=== PATIENT | male | born 1960 | race Caucasian/White ===

== ENCOUNTER 2023-01-06 22:36 | Emergency (ER) | payer OTHER, MEDICARE, SELFPAY ==
[2023-01-06 22:39] VITALS: BP 169/92; PULSE 75; RESP 18; TEMP 36.6; O2SAT 100; BMI 35.7
--- NOTE | 2023-01-06 22:53 | CT_ITS ---
[address] [address] Patient Name: ALMA HARRY MRN: [id number] date: 1960 Sex: M Assigned Patient Location: ER Current Patient Location: ER Accession/Order Number: [id number] Exam Date: 01/06/2023 23:28 Report Date: 01/07/2023 00:08 At the request of: ANU ZAMORA Procedure: CT abdomen pelvis w con EXAM: CT abdomen pelvis w con HISTORY: upper abdomianl pain, obstipation COMPARISON: 04/23/2021 TECHNIQUE: CT examination of the abdomen and pelvis performed using standard technique using 100 mL FINDINGS: Slightly dense liver suggestive of fatty infiltration. Numerous gallstones are seen without overt stigmata of cholecystitis. Mild vascular consultation. Unremarkable adrenal glands. Small parapelvic cysts. 5 mm left lower pole stone. 1 mm right mid pole stone Diverticulosis. No overt stigmata of diverticulitis. No hydronephrosis. Moderate retained stool in the colon. Normal appendix. No diverticulitis. Prostate gland and urinary bladder otherwise unremarkable No suspicious osseous lesions. Possible mitral valve calcification CT/CT abdomen pelvis w con IMPRESSION: Diverticulosis. No diverticulitis. Nonobstructing nephroliths. Gallstones. Slight fatty infiltration of the liver. Electronically authenticated by: SHAVONNE SAUCEDO Date: 01/07/2023 00:08
--- NOTE | 2023-01-06 22:54 | ED.GENADUL1 ---
HPI - General Adult General Chief complaint: Abdominal Pain Stated complaint: DIARRHEA, ABDOMINAL PAIN Time Seen by Provider: 01/06/23 22:37 Source: patient Mode of arrival: walk-in History of Present Illness HPI narrative: patient complains of upper abdominal pain and inability to pass formed stool for the last 36 hours. he said that he normally has a BM each morning. He did not have one this morning. Later he passed some watery stool and he has been passing flatus. He at [employer] and [place] [employer] at [employer]. His pain worsened so he took both a laxative suppository and gave himself an enema - no results. He complains of pain to the upper abdomen, no radiation and no sensation that he needs to pass stool PSHx includes hernia repair. PMHx - negative for UC, Crohn's, IBS, diverticulitis, GERD. Still has GB and appendix Related Data Previous Rx's Medication Instructions Recorded hyoscyamine sulfate 0.125 mg 0.125 mg PO Q6H PRN abdominal pain 01/07/23 sublingual tablet (Levsin/SL) #20 tabs ondansetron 4 mg disintegrating 4 mg PO Q6H PRN nausea and 01/07/23 tablet vomiting #20 tabs peg 3350-electrolytes 236 200 ml PO .q20min #2,000 mL 01/07/23 gram-22.74 gram-6.74 gram-5.86 gram solution (Golytely) Allergies Allergy/AdvReac Type Severity Reaction Status Date / Time No Known Drug Allergies Allergy Verified 01/06/23 22:43 Exam Narrative Exam Narrative: Nurses notes and vital signs reviewed and patient is not hypoxic. afebrile General: Well-appearing and in no apparent distress. Skin: Warm, dry, no pallor noted. No rash. Head: Normocephalic, atraumatic. Eye: Pupils are equal, round and EOMI. No scleral icterus. Ears, Nose, Mouth, and Throat: Oral mucosa is moist Cardiovascular: Regular Rate and Rhythm without murmur, gallop or rub. Respiratory: No accessory muscle use or respiratory distress. Lungs are clear to auscultation, no wheezing, rales or rhonchi Back: No CVA tenderness Musculoskeletal: normal ROM GI: Abdomen is soft, non-distended. He is obese. Normal bowel sounds. No masses appreciated. Diffuse upper abdominal tenderness to palpation. No rebound, guarding, or rigidity noted. Neurological: A&O x4. No cranial nerve dysfunction observed. No truncal ataxia. Moves all extremities. Sensation intact. Psychiatric: Cooperative and interactive. Normal mood and affect. Constitutional Vital Signs, click to edit/add: Last Vital Signs Temp 97.8 F 01/06/23 22:39 Pulse 71 01/06/23 23:58 Resp 18 01/06/23 22:39 BP 141/78 01/06/23 23:58 Pulse Ox 98 01/06/23 23:58 O2 Del Method Room Air 01/06/23 23:58 Course Vital Signs Vital signs: Vital Signs Temperature 97.8 F 01/06/23 22:39 Pulse Rate 75 01/06/23 22:39 Respiratory Rate 18 01/06/23 22:39 Blood Pressure 169/92 H 01/06/23 22:39 Pulse Oximetry 100 01/06/23 22:39 Oxygen Delivery Method Room Air 01/06/23 22:39 Temperature 97.8 F 01/06/23 22:39 Pulse Rate 71 01/06/23 23:58 Respiratory Rate 18 01/06/23 22:39 Blood Pressure 141/78 01/06/23 23:58 Pulse Oximetry 98 01/06/23 23:58 Oxygen Delivery Method Room Air 01/06/23 23:58 Medical Decision Making MDM Narrative Medical decision making narrative: peripheral IV established and blood drawn and sent for testing. The patient ordered to receive normal saline IV fluid, IV Zofran and IV Dilaudid for his pain. He was ordered to undergo CT scanning of the abdomen pelvis with IV contrast. Minimally elevated WBC at 11.1k. Bili total elevated at 1.1 - direct bili was . CMP notable only for elevated BUN at 23. Lipase negative, normal LFTs. CT abd/pelvis with IVC revealed diverticulosis without diverticulitis, gallstones and moderate retained colonic stool, per radiologist. Patient received a second dose of Dilaudid while awaiting CT results. he was also given SL Levsin. Patient informed of results and feels good enough to go home. Discussed diagnoses and plan for treatment including clear liquid diet x24 hours, GoLytely solution, Levsin for pain, ZOfran for nausea. ED return if he worsens. Lab Data Lab results reviewed: Yes I reviewed the patient's lab results Labs: Lab Results 01/06/23 Range/Units 22:45 WBC 11.1 H (4.0-11.0) 10^3/uL RBC 4.34 L (4.70-6.10) 10^6/uL Hgb 12.9 L (14.0-18.0) g/dL Hct 38.3 L (42.0-54.0) % MCV 88.2 (80.0-94.0) fL MCH 29.7 (25.9-34.0) pg MCHC 33.7 (29.9-35.2) g/dL RDW 13.2 (11.0-15.0) % Plt Count 257 (150-450) 10^3/uL MPV 10.2 (9.5-13.5) fL Neut % (Auto) 71.9 (43.0-75.0) % Lymph % (Auto) 17.1 L (20.5-60.0) % [place] % (Auto) 6.0 (1.7-12.0) % Eos % (Auto) 4.2 (0.9-7.0) % Baso % (Auto) 0.5 (0.2-2.0) % Neut # (Auto) 8.0 H (1.4-6.5) 10^3/uL Lymph # (Auto) 1.9 (1.2-3.8) 10^3/uL [place] # (Auto) 0.7 (0.3-0.8) 10^3/uL Eos # (Auto) 0.5 (0.0-0.7) 10^3/uL Baso # (Auto) 0.1 (0.0-0.1) 10^3/uL Abs Immat Gran (auto) 0.03 (0.00-0.03) 10^3/uL Imm/Tot Granulo (auto) 0.3 (0.0-0.5) % Sodium 136 (136-145) mmol/L Potassium 3.7 (3.5-5.1) mmol/L Chloride 103 (98-107) mmol/L Carbon Dioxide 25.0 (21.0-32.0) mmol/L Anion Gap 11.7 BUN 23.0 H (7.0-18.0) mg/dL Creatinine 1.00 (0.70-1.30) mg/dL Est GFR ( Amer) >60 (>=60) Est GFR (Non-Af Amer) >60 (>=60) BUN/Creatinine Ratio 23.0 Glucose 104 (74-106) mg/dL Lactate 0.7 (0.4-2.0) mmol/L Calcium 9.0 (8.5-10.1) mg/dL Total Bilirubin 1.1 H (0.2-1.0) mg/dL AST 18 (15-37) U/L ALT 29 (16-63) U/L Alkaline Phosphatase 91 (46-116) U/L Total Protein 7.5 (6.4-8.2) g/dL Albumin 3.9 (3.4-5.0) g/dL Globulin 3.6 g/dL Albumin/Globulin Ratio 1.1 Lipase 90.0 (73.0-393.0) U/L Imaging Data CT scan - abdomen: Radiologist's impression: Patient Name: ALMA HARRY MRN: [id number] date: 1960 Sex: M Assigned Patient Location: ER Current Patient Location: ER Accession/Order Number: [id number] Exam Date: 01/06/2023 23:28 Report Date: 01/07/2023 00:08 At the request of: ANU ZAMORA Procedure: CT abdomen pelvis w con EXAM: CT abdomen pelvis w con HISTORY: upper abdomianl pain, obstipation COMPARISON: 04/23/2021 TECHNIQUE: CT examination of the abdomen and pelvis performed using standard technique using 100 mL FINDINGS: Slightly dense liver suggestive of fatty infiltration. Numerous gallstones are seen without overt stigmata of cholecystitis. Mild vascular consultation. Unremarkable adrenal glands. Small parapelvic cysts. 5 mm left lower pole stone. 1 mm right mid pole stone Diverticulosis. No overt stigmata of diverticulitis. No hydronephrosis. Moderate retained stool in the colon. Normal appendix. No diverticulitis. Prostate gland and urinary bladder otherwise unremarkable No suspicious osseous lesions. Possible mitral valve calcification IMPRESSION: Diverticulosis. No diverticulitis. Nonobstructing nephroliths. Gallstones. Slight fatty infiltration of the liver. Electronically authenticated by: SHAVONNE SAUCEDO Date: 01/07/2023 00:08 Discharge Plan Discharge Chief Complaint: Abdominal Pain Clinical Impression: Gallstones, Abdominal pain, Constipation Patient Disposition: Home, Self-Care Time of Disposition Decision: 00:23 Prescriptions / Home Meds: New peg 3350-electrolytes [Golytely] 236-22.74-6.74 -5.86 gram recon soln 200 ml PO .q20min Qty: 2000 0RF Rx Instructions: until fecal effluent is clear hyoscyamine sulfate [Levsin/SL] 0.125 mg tablet, sublingual 0.125 mg PO Q6H PRN (Reason: abdominal pain) Qty: 20 0RF ondansetron 4 mg tablet,disintegrating 4 mg PO Q6H PRN (Reason: nausea and vomiting) Qty: 20 0RF Instructions: Constipation (ED), Gallstones (ED), Abdominal Pain (ED) Stand Alone Forms: Portal Instructions Referrals: KRYSTIN CAIN [Primary Care Provider] - 1 week
[2023-01-06 22:58] LABS: Basophils Absolute Auto 0.1 10^3/uL (0.0-0.1); Basophils Percent Auto 0.5 % (0.2-2.0); Eosinophils Absolute Auto 0.5 10^3/uL (0.0-0.7); Eosinophils Percent Auto 4.2 % (0.9-7.0); Hematocrit 38.3 % (42.0-54.0); Hemoglobin 12.9 g/dL (14.0-18.0); Immature Granulocytes Abs Auto 0.03 10^3/uL (0.00-0.03); Immature Granulocytes Pct Auto 0.3 % (0.0-0.5); Lymphocytes Absolute Auto 1.9 10^3/uL (1.2-3.8); Lymphocytes Percent Auto 17.1 % (20.5-60.0); Mean Corpuscular HGB Conc 33.7 g/dL (29.9-35.2); Mean Corpuscular Hemoglobin 29.7 pg (25.9-34.0); Mean Corpuscular Volume 88.2 fL (80.0-94.0); Mean Platelet Volume 10.2 fL (9.5-13.5); Monocytes Absolute Auto 0.7 10^3/uL (0.3-0.8); Neutrophils Percent Auto 71.9 % (43.0-75.0); Platelet Count 257 10^3/uL (150-450); Red Blood Count 4.34 10^6/uL (4.70-6.10); Red Cell Distribution Width 13.2 % (11.0-15.0); White Blood Count 11.1 10^3/uL (4.0-11.0)
[2023-01-06] MEDS: ONDANSETRON PF 4 MG/2 ML VIAL IV (23:07)
[2023-01-06] MEDS: 0.9 % SODIUM CHLORIDE 1,000 ML 999 ML IV (23:07)
[2023-01-06] MEDS: PANTOPRAZOLE SODIUM 40 MG VIAL IV (23:07)
[2023-01-06] MEDS: HYDROMORPHONE HCL 1 MG/ML CARTRIDGE IVP (23:07)
[2023-01-06 23:11] LABS: Alanine Aminotransferase 29 U/L (16-63); Albumin Globulin Ratio 1.1; Albumin Level 3.9 g/dL (3.4-5.0); Alkaline Phosphatase 91 U/L (46-116); Anion Gap 11.7; Aspartate Amino Transferase 18 U/L (15-37); Bilirubin Total 1.1 mg/dL (0.2-1.0); Chloride 103 mmol/L (98-107); Estimated GFR (African America >60 (>=60); Estimated GFR (Non-African Ame >60 (>=60); Globulin 3.6 g/dL; Glucose 104 mg/dL (74-106); Potassium 3.7 mmol/L (3.5-5.1); Sodium 136 mmol/L (136-145); Total Protein 7.5 g/dL (6.4-8.2)
[2023-01-06 23:29] LABS: Lactate/Lactic Acid 0.7 mmol/L (0.4-2.0)
[2023-01-06 23:58] VITALS: BP 141/78; PULSE 71; O2SAT 98
[2023-01-07] MEDS: HYOSCYAMINE SULFATE 0.125 MG TAB.SUBL SL (00:02)
[2023-01-07] MEDS: HYDROMORPHONE HCL 0.5 MG/0.5 ML SYRINGE 1 MG IV (00:03)
[2023-01-07 00:56] LABS: Bilirubin Direct 0.2 mg/dL (0.0-0.2)
== END 2023-01-07 00:37 | disposition home or self-care (01) ==
PROVIDERS: Emergency Provider Emergency Medicine; PCP Family Medicine
DX: R10.9 Unspecified abdominal pain (principal); K59.00 Constipation, unspecified; K80.20 Calculus of gallbladder without cholecystitis without obstruction; E66.9 Obesity, unspecified; Z68.35 Body mass index [BMI] 35.0-35.9, adult; K57.90 Diverticulosis of intestine, part unspecified, without perforation or abscess without bleeding; Z79.899 Other long term (current) drug therapy
CPT/HCPCS: 36415; 74177; 80053; 82248; 83605; 83690; 85025; 96374; 96375; 96376; 99285; J1170; Q9967

== ENCOUNTER 2023-01-08 22:48 | Inpatient (IN) | payer OTHER, MEDICARE, SELFPAY ==
[2023-01-08] VITALS (10 sets, daily range): BP systolic 109–136; BP diastolic 67–80; PULSE 76–105; RESP 15–25; TEMP 36.8; O2SAT 96–99; BMI 35.7
--- NOTE | 2023-01-08 23:00 | ECG_ITS ---
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
--- NOTE | 2023-01-08 23:00 | XR_ITS ---
The [address] [address] Patient Name: ALMA HARRY MRN: [id number] date: 1960 Sex: M Assigned Patient Location: ER Current Patient Location: ER Accession/Order Number: [id number] Exam Date: 01/08/2023 23:08 Report Date: 01/08/2023 23:33 At the request of: ED COLMENARES Procedure: XR chest 1V EXAMINATION: XR chest 1V HISTORY: Chest pain COMPARISON: Chest x-rays 06/30/2015 TECHNIQUE: Portable chest FINDINGS: Cardiac pacer paddle is present. The lung parenchyma is free of consolidation or infiltrate. No pneumothorax or pleural effusion. The cardiac, mediastinal and hilar contours are normal. The visualized osseous structures exhibit no gross abnormality. XR/XR chest 1V IMPRESSION: No acute cardiopulmonary abnormality. Electronically authenticated by: RYLAN VELAZCO Date: 01/08/2023 23:33
--- NOTE | 2023-01-08 23:01 | ED_ITS ---
HPI - Chest Pain General Chief Complaint: Chest Pain Stated Complaint: CHEST PAIN Time Seen by Provider: 01/08/23 22:54 Source: patient Mode of arrival: Wheelchair History of Present Illness HPI narrative: 62-year-old male presents for abdominal pain and chest pain. He was here two days ago for abdominal pain across his upper abdomen and CAT scan apparently showed constipation. He was given GoLYTELY which he took and he had multiple liq uid bowel movements. He was on his way here because of the same abdominal pain and he had some lower chest pain that started on the way here. Immediately after getting his IV started here he passed out. His states he has been sweaty tonight. he reports his abdominal pain is severe. Related Data Home Medications Medication Instructions Recorded Confirmed albuterol sulfate 90 mcg/actuation inhalation 01/09/23 aerosol inhaler (ProAir HFA) atorvastatin 80 mg tablet 80 mg PO DAILY 01/09/23 01/09/23 budesonide-formoterol HFA 160 2 inh inhalation BID 01/09/23 01/09/23 mcg-4.5 mcg/actuation aerosol inhaler (Symbicort) cholecalciferol (vitamin D3) 125 5,000 unit PO DAILY 01/09/23 01/09/23 mcg (5,000 unit) tablet (Vitamin D3) clopidogrel 75 mg tablet 75 mg PO DAILY 01/09/23 01/09/23 losartan 50 mg tablet 50 mg PO DAILY 01/09/23 01/09/23 metoprolol succinate 50 mg 50 mg PO DAILY 01/09/23 01/09/23 tablet,extended release 24 hr nitroglycerin 0.4 mg sublingual mg 01/09/23 tablet revefenacin 175 mcg/3 mL solution 175 mcg inhalation DAILY 01/09/23 01/09/23 for nebulization (Yupelri) spironolactone 50 mg tablet 50 mg PO DAILY 01/09/23 01/09/23 Previous Rx's Medication Instructions Recorded hyoscyamine sulfate 0.125 mg 0.125 mg PO Q6H PRN abdominal pain 01/07/23 sublingual tablet (Levsin/SL) #20 tabs ondansetron 4 mg disintegrating 4 mg PO Q6H PRN nausea and 01/07/23 tablet vomiting #20 tabs peg 3350-electrolytes 236 200 ml PO .q20min #2,000 mL 01/07/23 gram-22.74 gram-6.74 gram-5.86 gram solution (Golytely) Allergies Allergy/AdvReac Type Severity Reaction Status Date / Time No Known Drug Allergies Allergy Verified 01/06/23 22:43 Review of Systems ROS Narrative A ten point review of systems is negative except as noted above. Cardiovascular Reports: chest pain Gastrointestinal Reports: abdominal pain and nausea Exam Narrative Exam Narrative: Nurses note and vital signs reviewed and patient is not hypoxic. General: The patient appears uncomfortable and minimally anxious. Skin: Warm, dry, no pallor noted. There is no rash noted. Head: Normocephalic, atraumatic Eye: Normal conjunctiva, no drainage Ears, Nose, Mouth, and Throat: oral mucosa is moist. Nares patent. Cardiovascular: Regular Rate and Rhythm Respiratory: Patient is in no distress, no accessory muscle use, lungs are clear to auscultation, no wheezing, rales or rhonchi Back: non-tender GI: Normal bowel sounds, he does not seem to have any tenderness on palpation of the upper abdomen or lower abdomen. Musculoskeletal: The patient has no evidence of calf tenderness, no pitting edema, symmetrical pulses noted bilaterally Neurological: A&O, normal speech Psychiatric: Cooperative, mildly anxious Constitutional Vital Signs, click to edit/add: Last Vital Signs Temp 98.3 F 01/08/23 22:52 Pulse 77 01/09/23 02:30 Resp 12 01/09/23 01:30 BP 130/80 01/09/23 02:30 Pulse Ox 96 01/09/23 02:34 O2 Del Method Nasal Cannula 01/09/23 02:34 Course Vital Signs Vital signs: Vital Signs Temperature 98.3 F 01/08/23 22:52 Pulse Rate 96 H 01/08/23 22:52 Respiratory Rate 18 01/08/23 22:52 Blood Pressure 136/78 01/08/23 22:52 Pulse Oximetry 98 01/08/23 22:52 Oxygen Delivery Method Room Air 01/08/23 22:52 Temperature 98.3 F 01/08/23 22:52 Pulse Rate 77 01/09/23 02:30 Respiratory Rate 12 01/09/23 01:30 Blood Pressure 130/80 01/09/23 02:30 Pulse Oximetry 96 01/09/23 02:34 Oxygen Delivery Method Nasal Cannula 01/09/23 02:34 MDM - Chest Pain MDM Narrative Medical decision making narrative: CAT scan per radiologist suggests acute cholecystitis. Amylase lipase and LFTs are essentially normal and his WBC is thirteen thousand. He was ordered Zosyn and is being admitted. Dr. Sanon was consulted and he requested the oncoming surgeon be contacted in the morning. treatment diagnosis and disposition were discussed with the patient. Differential Diagnosis Differential diagnosis: Likely other (acute cholecystitis, pancreatitis, small bowel obstruction, bowel perforation, myocardial infarction) Medical Records Data Attestation: I reviewed the patient's medical records. Lab Data Attestation: I reviewed the patient's lab results. Labs: Lab Results 01/08/23 01/09/23 Range/Units 23:03 01:14 WBC 13.2 H (4.0-11.0) 10^3/uL RBC 4.02 L (4.70-6.10) 10^6/uL Hgb 12.3 L (14.0-18.0) g/dL Hct 35.0 L (42.0-54.0) % MCV 87.1 (80.0-94.0) fL MCH 30.6 (25.9-34.0) pg MCHC 35.1 (29.9-35.2) g/dL RDW 13.1 (11.0-15.0) % Plt Count 246 (150-450) 10^3/uL MPV 10.3 (9.5-13.5) fL Neut % (Auto) 81.0 H (43.0-75.0) % Lymph % (Auto) 9.3 L (20.5-60.0) % [place] % (Auto) 6.9 (1.7-12.0) % Eos % (Auto) 2.3 (0.9-7.0) % Baso % (Auto) 0.3 (0.2-2.0) % Neut # (Auto) 10.7 H (1.4-6.5) 10^3/uL Lymph # (Auto) 1.2 (1.2-3.8) 10^3/uL [place] # (Auto) 0.9 H (0.3-0.8) 10^3/uL Eos # (Auto) 0.3 (0.0-0.7) 10^3/uL Baso # (Auto) 0.0 (0.0-0.1) 10^3/uL Abs Immat Gran (auto) 0.03 (0.00-0.03) 10^3/uL Imm/Tot Granulo (auto) 0.2 (0.0-0.5) % Sodium 139 (136-145) mmol/L Potassium 3.6 (3.5-5.1) mmol/L Chloride 102 (98-107) mmol/L Carbon Dioxide 25.6 (21.0-32.0) mmol/L Anion Gap 15.0 BUN 15.0 (7.0-18.0) mg/dL Creatinine 0.93 (0.70-1.30) mg/dL Est GFR ( Amer) >60 (>=60) Est GFR (Non-Af Amer) >60 (>=60) BUN/Creatinine Ratio 16.1 Glucose 119 H (74-106) mg/dL Calcium 9.2 (8.5-10.1) mg/dL Total Bilirubin 1.1 H (0.2-1.0) mg/dL Direct Bilirubin 0.2 (0.0-0.2) mg/dL AST 15 (15-37) U/L ALT 24 (16-63) U/L Alkaline Phosphatase 81 (46-116) U/L Troponin I High Sens 6.4 7.1 (4.0-76.1) pg/mL Total Protein 7.9 (6.4-8.2) g/dL Albumin 3.6 (3.4-5.0) g/dL Globulin 4.3 g/dL Albumin/Globulin Ratio 0.8 Amylase 33 (25-115) U/L Lipase 77.0 (73.0-393.0) U/L Imaging Data CT scan - abdomen: Radiologist's impression: acute cholecystitis Discharge Plan Discharge Chief Complaint: Chest Pain Clinical Impression: Acute cholecystitis Patient Disposition: Admitted As Inpatient Time of Disposition Decision: 03:33 Condition: Good
[2023-01-08 23:20] LABS: Basophils Percent Auto 0.3 % (0.2-2.0); Eosinophils Absolute Auto 0.3 10^3/uL (0.0-0.7); Eosinophils Percent Auto 2.3 % (0.9-7.0); Hemoglobin 12.3 g/dL (14.0-18.0); Immature Granulocytes Abs Auto 0.03 10^3/uL (0.00-0.03); Immature Granulocytes Pct Auto 0.2 % (0.0-0.5); Lymphocytes Absolute Auto 1.2 10^3/uL (1.2-3.8); Lymphocytes Percent Auto 9.3 % (20.5-60.0); Mean Corpuscular HGB Conc 35.1 g/dL (29.9-35.2); Mean Corpuscular Hemoglobin 30.6 pg (25.9-34.0); Mean Corpuscular Volume 87.1 fL (80.0-94.0); Mean Platelet Volume 10.3 fL (9.5-13.5); Monocytes Absolute Auto 0.9 10^3/uL (0.3-0.8); Monocytes Percent Auto 6.9 % (1.7-12.0); Neutrophils Absolute Auto 10.7 10^3/uL (1.4-6.5); Platelet Count 246 10^3/uL (150-450); Red Blood Count 4.02 10^6/uL (4.70-6.10); Red Cell Distribution Width 13.1 % (11.0-15.0); White Blood Count 13.2 10^3/uL (4.0-11.0)
[2023-01-08] MEDS: MORPHINE SULFATE 4 MG/ML VIAL IV (23:20)
[2023-01-08] MEDS: ONDANSETRON PF 4 MG/2 ML VIAL IV (23:20)
[2023-01-08 23:42] LABS: Alanine Aminotransferase 24 U/L (16-63); Albumin Globulin Ratio 0.8; Albumin Level 3.6 g/dL (3.4-5.0); Alkaline Phosphatase 81 U/L (46-116); Amylase 33 U/L (25-115); Aspartate Amino Transferase 15 U/L (15-37); BUN Creatinine Ratio 16.1; Bilirubin Direct 0.2 mg/dL (0.0-0.2); Bilirubin Total 1.1 mg/dL (0.2-1.0); Calcium 9.2 mg/dL (8.5-10.1); Carbon Dioxide 25.6 mmol/L (21.0-32.0); Chloride 102 mmol/L (98-107); Estimated GFR (African America >60 (>=60); Estimated GFR (Non-African Ame >60 (>=60); Globulin 4.3 g/dL; Glucose 119 mg/dL (74-106); Potassium 3.6 mmol/L (3.5-5.1); Sodium 139 mmol/L (136-145); Total Protein 7.9 g/dL (6.4-8.2); Troponin I High Sensitivity 6.4 pg/mL (4.0-76.1)
[2023-01-08] MEDS: HYDROMORPHONE HCL 0.5 MG/0.5 ML SYRINGE 1 MG IV (23:52)
[2023-01-09] VITALS (33 sets, daily range): BP systolic 117–148; BP diastolic 71–100; PULSE 69–105; RESP 12–20; TEMP 36.6–37.3; O2SAT 90–99; BMI 35.9
--- NOTE | 2023-01-09 | CONS_ITS ---
CONSULTATION DATE: ??01/09/2023 REASON FOR CONSULTATION:? Abdominal pain, cholelithiasis. HISTORY OF PRESENT ILLNESS:? Patient is a 62-year-old male with history of COPD, hypertension, coronary artery disease, hyperlipidemia, previous TIA on Plavix daily, who initially presented to the emergency room three days ago with bloating, non-specific abdominal pain and constipation.? Workup at that time revealed small stones within the gallbladder on CT, but no inflammatory changes.? Laboratory values were unremarkable.? He was treated for constipation with some MiraLax and he had multiple bowel movements.? Initially, he felt improved; however, he had poor p.o. intake and was really afraid to eat because of the pain.? Yesterday, he developed worsening pain throughout the mid and upper abdomen, radiating across in like a band-like distribution with bloating.? No nausea or vomiting.? No fevers.? Because of the severity of the pain, he presented to the emergency room for re-evaluation.? He was found to have a slight elevation of his white blood cell sound, as well as very mild elevation of his total bilirubin.? He did have a CT angio of the chest, abdomen and pelvis which revealed distention of the gallbladder, as well as some mild inflammatory changes around it.? Once again, the small stones were noted in the body of the gallbladder.? Nothing appeared to be in the neck.? No other abnormalities were noted.? Because of this and the persistent pain, he was admitted, placed on IV antibiotics.? His pain has improved with pain medication.? He has been afebrile here.? His white blood cell count this morning is more elevated at 18,000.? He does have a slight increase in his bilirubin as well to 1.4 with a 0.3 direct.? Alkaline phosphotase, AST and ALT were normal, as was lipase.? Patient denies any previous history of biliary colic type symptoms.? Has had no history of pancreatitis or jaundice.? His abdominal surgeries are significant for right inguinal hernia repair, as well as exploratory laparotomy back in the early 80s, at which time, he reports what sounds like a small bowel resection at that time for internal obstruction.? He has had no problems since that time.? FAMILY HISTORY:? He has no family history of GI malignancy or inflammatory bowel disease.? MEDICATIONS:? He does take Plavix daily.? No aspirin or nonsteroidal anti- inflammatory drugs.? SOCIAL HISTORY:? He is a former smoker, but quit 17 years ago.? Reports occasional alcohol use.? No illicit drug use PAST SURGICAL HISTORY:? As noted in the HPI.. He has also had skin cancer surgery in the right nasolabial fold last which, which required a flap reconstruction by Dr. Rendon.? REVIEW OF SYSTEMS:? Ten system review of systems is negative for recent weight loss or weight gain.? Denies increased fatigue or light-headedness.? Has had no earache or tinnitus.? No sinus congestion.? No sore throat or hoarseness.? No chest pain, palpitations or syncope.? No chronic cough, shortness of breath or hemoptysis.? He has had the abdominal pain and bloating.? No nausea or vomiting.? No diarrhea.? Some initial constipation which has resolved.? No melena, hematochezia or bright red blood per rectum.? No dysuria, frequency, urgency or hematuria.? No headaches, seizures or tremors.? No easy bruising or bleeding.? No heat or cold intolerance.? No polydipsia, polyphagia or polyuria.? PHYSICAL EXAM:? VITAL SIGNS:? Patient is afebrile.? Blood pressure is 146/82.? Pulse is 78 and regular.? Respiratory rate is 18.? O2 saturation is 98% on 2 liters nasal cannula.? GENERAL:? In general, he is a well developed, well nourished male, currently in no acute distress. HEENT:? Normocephalic, atraumatic.? He does have some bruising and healing scar in the right nasolabial fold, extending down to the mouth, with some resolving ecchymosis.? No drainage.? NECK:? Supple.? There is no adenopathy, thyromegaly or JVD. LUNGS:? Clear bilaterally.? CARDIAC EXAM:? Regular rhythm and rate without appreciable murmurs, rubs or gallops. ABDOMEN:? Obese. ?There are positive bowel sounds.? Soft, minimally distended.? There is tenderness in the upper abdomen with some right upper quadrant tenderness as well.? No masses, hepatosplenomegaly or hernias appreciated.? There is a well healed, lower midline incision as well as right groin incision.? No CVA tenderness.? SKIN:? Warm and dry without lesions, rashes or ulcers. NEURO EXAM:? Non-focal.? Non-lateralizing.? Patient is awake, alert, oriented with appropriate affect. IMAGING:? CT scans per personally reviewed. ASSESSMENT:? A 62-year-old male with a several day history of upper abdominal pain.? Now with evidence of distention of the gallbladder with mild inflammatory changes consistent with likely cholecystitis.? We will obtain an ultrasound for better evaluation of the gallbladder since the CT is only showing small stones in the body of the gallbladder, nothing in the neck and no ductal dilatation.? Certainly, he may be passing a small stone.? This is not evident on the CT.? PLAN:? The plan is to hydrate the patient, keep him NPO on IV antibiotics with pain control, anti-emetics as needed, supportive care.? Will likely require cholecystectomy in the near future.? CC:? Gabriel Munoz M.D. MTDSamir
--- NOTE | 2023-01-09 00:08 | CT_ITS ---
The [address] [address] Patient Name: ALMA HARRY MRN: [id number] date: 1960 Sex: M Assigned Patient Location: ER Current Patient Location: ER Accession/Order Number: [id number] Exam Date: 01/09/2023 00:30 Report Date: 01/09/2023 02:43 At the request of: ED COLMENARES Procedure: CT angio abdomen pelvis EXAM: CT angio abdomen pelvis, CT angio chest HISTORY: Chest and abdominal pain. COMPARISON: Chest x-ray, 01/08/[address] abdomen pelvis, 01/06/2023. TECHNIQUE: Oral and IV contrast enhanced CT imaging of the chest, abdomen and pelvis was performed using 100 mL of Omnipaque 350 intravenous contrast. Sagittal and coronal reconstructions are provided. FINDINGS: CTA CHEST: Mild pulsation artifact degrades ascending aorta. The thoracic aorta and arch vessels are otherwise unremarkable. There is no dissection or aneurysm. There is excellent pulmonary artery enhancement. No acute pulmonary embolism is seen. Cardiac size is normal. Coronary arterial calcifications are noted. There is no pericardial effusion. Prominent symmetric gynecomastia is noted. The thyroid gland appears normal. No thoracic adenopathy is seen. There is mild dependent atelectasis in the posterior lower lobes with mild linear fibrotic scarring at both anterior lung bases. The lungs are otherwise clear. The bony thorax is intact. CTA ABDOMEN: There are mild aortic calcifications without dissection or aneurysm. The celiac axis, superior mesenteric artery, bilateral renal arteries and inferior mesenteric artery are well enhanced and unremarkable. No acute vascular abnormality or active bleeding is seen. Cholelithiasis is noted with gallbladder distention and stranding of the pericholecystic fat consistent with acute cholecystitis until proven otherwise. There is no biliary ductal dilatation or choledocholithiasis. The liver, pancreas, spleen, and adrenal glands are unremarkable. There is a 4 mm nonobstructing right renal stone on image 105. There is a nonobstructing 7 mm stone in the lower pole of the left kidney on image 120. Multiple bilateral renal peripelvic cysts are noted. The kidneys are otherwise unremarkable. The stomach and small bowel appear within normal limits. CT PELVIS: A normal appendix is seen on image 133. The pelvic small bowel loops, prostate and urinary bladder appear normal. A small urachal diverticulum is noted. Colonic diverticulosis is most prominent in the sigmoid region. There are fat-containing bilateral inguinal hernias. No inflammatory fat stranding, free fluid, loculated fluid or free air is seen in the abdomen or pelvis. No acute osseous abnormality or suspicious bony lesion is seen. CT/CT angio abdomen pelvis IMPRESSION: 1. No acute pulmonary embolism, aortic dissection, or other acute cardiopulmonary findings. 2. No acute vascular abnormality in the abdomen or pelvis. 3. Cholelithiasis with gallbladder distention and pericholecystic fat stranding consistent with cholecystitis until proven otherwise. No other acute findings in the abdomen or pelvis. 4. Single nonobstructing stone in each kidney with multiple bilateral renal peripelvic cysts. 5. Colonic diverticulosis. 6. Normal appendix. Electronically authenticated by: TRISTA MARTINEZ Date: 01/09/2023 02:43
--- NOTE | 2023-01-09 00:08 | CT_ITS ---
The [address] [address] Patient Name: ALMA HARRY MRN: [id number] date: 1960 Sex: M Assigned Patient Location: ER Current Patient Location: ER Accession/Order Number: [id number] Exam Date: 01/09/2023 00:30 Report Date: 01/09/2023 02:43 At the request of: ED COLMENARES Procedure: CT angio chest EXAM: CT angio abdomen pelvis, CT angio chest HISTORY: Chest and abdominal pain. COMPARISON: Chest x-ray, 01/08/[address] abdomen pelvis, 01/06/2023. TECHNIQUE: Oral and IV contrast enhanced CT imaging of the chest, abdomen and pelvis was performed using 100 mL of Omnipaque 350 intravenous contrast. Sagittal and coronal reconstructions are provided. FINDINGS: CTA CHEST: Mild pulsation artifact degrades ascending aorta. The thoracic aorta and arch vessels are otherwise unremarkable. There is no dissection or aneurysm. There is excellent pulmonary artery enhancement. No acute pulmonary embolism is seen. Cardiac size is normal. Coronary arterial calcifications are noted. There is no pericardial effusion. Prominent symmetric gynecomastia is noted. The thyroid gland appears normal. No thoracic adenopathy is seen. There is mild dependent atelectasis in the posterior lower lobes with mild linear fibrotic scarring at both anterior lung bases. The lungs are otherwise clear. The bony thorax is intact. CTA ABDOMEN: There are mild aortic calcifications without dissection or aneurysm. The celiac axis, superior mesenteric artery, bilateral renal arteries and inferior mesenteric artery are well enhanced and unremarkable. No acute vascular abnormality or active bleeding is seen. Cholelithiasis is noted with gallbladder distention and stranding of the pericholecystic fat consistent with acute cholecystitis until proven otherwise. There is no biliary ductal dilatation or choledocholithiasis. The liver, pancreas, spleen, and adrenal glands are unremarkable. There is a 4 mm nonobstructing right renal stone on image 105. There is a nonobstructing 7 mm stone in the lower pole of the left kidney on image 120. Multiple bilateral renal peripelvic cysts are noted. The kidneys are otherwise unremarkable. The stomach and small bowel appear within normal limits. CT PELVIS: A normal appendix is seen on image 133. The pelvic small bowel loops, prostate and urinary bladder appear normal. A small urachal diverticulum is noted. Colonic diverticulosis is most prominent in the sigmoid region. There are fat-containing bilateral inguinal hernias. No inflammatory fat stranding, free fluid, loculated fluid or free air is seen in the abdomen or pelvis. No acute osseous abnormality or suspicious bony lesion is seen. CT/CT angio chest IMPRESSION: 1. No acute pulmonary embolism, aortic dissection, or other acute cardiopulmonary findings. 2. No acute vascular abnormality in the abdomen or pelvis. 3. Cholelithiasis with gallbladder distention and pericholecystic fat stranding consistent with cholecystitis until proven otherwise. No other acute findings in the abdomen or pelvis. 4. Single nonobstructing stone in each kidney with multiple bilateral renal peripelvic cysts. 5. Colonic diverticulosis. 6. Normal appendix. Electronically authenticated by: TRISTA MARTINEZ Date: 01/09/2023 02:43
[2023-01-09 01:41] LABS: Troponin I High Sensitivity 7.1 pg/mL (4.0-76.1)
[2023-01-09] MEDS: DICYCLOMINE HCL 20 MG/2 ML VIAL IM (02:38)
--- NOTE | 2023-01-09 03:18 | US_ITS ---
The [address] [address] Patient Name: ALMA HARRY MRN: [id number] date: 1960 Sex: M Assigned Patient Location: MS Current Patient Location: Accession/Order Number: [id number] Exam Date: 01/09/2023 11:58 Report Date: 01/09/2023 13:23 At the request of: CASSY CEBALLOS Procedure: US right upper quadrant US right upper quadrant, 01/09/2023 11:58 AM EDT INDICATION:Cholelithiasis. COMPARISON: CT angiography of the chest, abdomen and pelvis 01/09/2023. TECHNIQUE: Multi-planar real-time ultrasonography of the upper abdomen (right upper quadrant) using grayscale imaging, supplemented by color, power, and spectral Doppler as needed. FINDINGS: The is obscured by overlying bowel gas. he liver is 15.4 cm with normal echotexture.No intrahepatic ductal dilatation. Common bile duct 3.9mm Multiple mobile gallstones within the gallbladder lumen and neck. No gallbladder wall thickening or pericholecystic fluid. Negative sonographic Mosqueda's sign. 0.8 x 0.6 x 0.8 cm echogenic nodule adherent to the gallbladder wall. The main portal vein is antegrade Right kidney: 11.4 x 5.4 x 7.5 cm. No hydronephrosis. Normal color Doppler to the right kidney. No ascites. US/US right upper quadrant IMPRESSION: 1. Cholelithiasis. No findings to suggest acute cholecystitis. 2. Small nodule adherent to the gallbladder wall likely a benign cholesterol polyp. Electronically authenticated by: YOAN BANEGAS Date: 01/09/2023 13:23
[2023-01-09] MEDS: PIPERACILLIN SODIUM/TAZOBACTAM 3.375 GM in 0.9 % SODIUM CHLORIDE 50 ML IV ×3 (03:58→20:13)
--- NOTE | 2023-01-09 05:02 | W.PM.TELEPN ---
Progress Note: Subjective Subjective Interval history: CC: Abdominal pain with nausea and vomiting HPI: 62 year old male with history of hypertension, TIA on Plavix, Obesity, former smoker/COPD and previous bowel hernia repair who presents with complaints of abdominal pain. patient was constipated few days ago given bowel prep with resolution of constipation, he did however started to develop diffuse lower-mid abdominal pain after eating chicken, pain is constant, severe intensity associated with nausea, vomiting, chills, diaphoresis and no alleviating factors. he did have a transient lower chest upper abdominal pain. he denies any previous similar episodes. Upon arrival to the ER, he is afebrile with labs remarkable for leukocytosis, and CTA/P suggesting acute cholecystitis. Surgery was consulted, placed NPO, given fluids, Morphine, Zofran and Zosyn. Allergies: NKDA Home medications: reviewed, reconciled in chart PMHx: CVA, hypertension, COPD, PSHx: hernia repair, colon resection for incarcerated hernia FHx: non-contributory to today's visit SHx: loives with family, denies alcohol use, quit smoking > 10 years ago ROS: negative except for HPI Exam Narrative Exam Narrative: GEN: lying in bed, in acute distress, diaphoretic, AO x4 HEENT: NC/AT, EOMI, dry mucous membranes CVS: RRR, no edema Lungs: normal respiratory effort, bilateral air entry ABD: guarding, diffuse tenderness, no visible masses Neuro: no focal deficits Psych: appropriate affect Skin: no bruises Ext: atraumatic Constitutional Vital Signs, click to edit/add: Last Vital Signs Temp 97.9 F 01/09/23 04:29 Pulse 78 01/09/23 04:29 Resp 20 01/09/23 04:29 BP 146/82 H 01/09/23 04:29 Pulse Ox 97 01/09/23 03:00 O2 Del Method Room Air 01/09/23 04:29 Progress Note: Objective Labs Labs: Short CBC 01/08/23 Range/Units 23:03 WBC 13.2 H (4.0-11.0) 10^3/uL Hgb 12.3 L (14.0-18.0) g/dL Hct 35.0 L (42.0-54.0) % Plt Count 246 (150-450) 10^3/uL BMP 01/08/23 23:03 Sodium 139 Potassium 3.6 Chloride 102 Carbon Dioxide 25.6 BUN 15.0 Creatinine 0.93 Glucose 119 H Calcium 9.2 Liver Function 01/08/23 Range/Units 23:03 Total Bilirubin 1.1 H (0.2-1.0) mg/dL Direct Bilirubin 0.2 (0.0-0.2) mg/dL AST 15 (15-37) U/L ALT 24 (16-63) U/L Alkaline Phosphatase 81 (46-116) U/L Albumin 3.6 (3.4-5.0) g/dL Imaging CT scan - abdomen: Attestation: I have reviewed the pertinent imaging results. Progress Note: A&P Assessment and Plan (1) Gallstones: (2) Abdominal pain: (3) Acute cholecystitis: Plan Acute intractable abdominal pain with nausea and vomiting Acute Cholecystitis - NPO, IV Zosyn, check blood cultures if temp 101 or higher - IV Dilaudid and Zofran prn - IV Fluids - Surgery consult. - rule out other etiology for abdominal pain, as he complains of lower abdominal pain as well, history of hernia repair Hypertension - resume home BP medications with hold parameters Hx of CVA - Hold Plavix untill seen by surgery - Continue statin COPD/Former smoker, not inexacerbation - home inhalers with prn albuterol - 02 as needed DVT ppx: lovenox Full Code Disposition: home when medically stable Communications: Discussed with ER physician, bedside nurse. patient updated of plan of care, all questions answered to their satisfaction. Clause: As the provider of this telehealth evaluation, requested by patient's evaluating physician, I attest that i introduced myself to the patient, provided my credentials and determined that telemedicine via a realtime two way interactive audio and video platform is an appropriate and effective means of providing this service. I reviewed the patient's chart and had a discussion with the member of the patient's treatment team. The patient and I had mutually agreed with the continuation of this evaluation via telemedicine. The patient consented for the telemedicine evaluation. The nurse was present during the entire encounter and was able to move the stethoscope in appropriate directions. the patient was evaluated at 0500 Telemedicine Attestation Telemedicine Attestation I conducted this encounter from [[place]] via secure live, [id number] video conference with the patient, located at [facility] with [televideo]. Prior to the interview, the risks and benefits of telemedicine were discussed with the patient and verbal consent was obtained.
[2023-01-09] MEDS: ONDANSETRON 4 MG RAPDIS TABLET PO (05:08)
[2023-01-09] MEDS: HYDROMORPHONE HCL 0.5 MG/0.5 ML SYRINGE IV (05:11)
[2023-01-09] MEDS: FAMOTIDINE/PF 20 MG/2 ML VIAL IV ×2 (05:11→16:26)
[2023-01-09] MEDS: LACTATED RINGER'S SOLUTION 1,000 ML 100 ML IV (05:11)
[2023-01-09] MEDS: METOPROLOL SUCCINATE 50 MG TAB.ER.24H PO (10:07)
[2023-01-09 10:08] LABS: Basophils Percent Auto 0.2 % (0.2-2.0); Eosinophils Absolute Auto 0.1 10^3/uL (0.0-0.7); Eosinophils Percent Auto 0.6 % (0.9-7.0); Hematocrit 37.2 % (42.0-54.0); Hemoglobin 12.3 g/dL (14.0-18.0); Immature Granulocytes Abs Auto 0.07 10^3/uL (0.00-0.03); Immature Granulocytes Pct Auto 0.4 % (0.0-0.5); Lymphocytes Absolute Auto 0.6 10^3/uL (1.2-3.8); Lymphocytes Percent Auto 3.3 % (20.5-60.0); Mean Corpuscular HGB Conc 33.1 g/dL (29.9-35.2); Mean Corpuscular Hemoglobin 29.8 pg (25.9-34.0); Mean Corpuscular Volume 90.1 fL (80.0-94.0); Mean Platelet Volume 10.3 fL (9.5-13.5); Monocytes Absolute Auto 1.2 10^3/uL (0.3-0.8); Monocytes Percent Auto 6.8 % (1.7-12.0); Neutrophils Absolute Auto 16.1 10^3/uL (1.4-6.5); Neutrophils Percent Auto 88.7 % (43.0-75.0); Platelet Count 202 10^3/uL (150-450); Red Blood Count 4.13 10^6/uL (4.70-6.10); Red Cell Distribution Width 13.2 % (11.0-15.0); White Blood Count 18.1 10^3/uL (4.0-11.0)
[2023-01-09] MEDS: HYDROMORPHONE HCL 0.5 MG/0.5 ML SYRINGE 1 MG IV ×3 (10:09→21:05)
--- NOTE | 2023-01-09 10:23 | P.PN_ITS ---
Progress Note: Subjective Subjective Interval history: Still with significant abdominal pain. Medications not helping significantly. Exam Constitutional Vital Signs, click to edit/add: Last Vital Signs Temp 97.9 F 01/09/23 06:00 Pulse 78 01/09/23 06:00 Resp 18 01/09/23 08:00 BP 146/82 H 01/09/23 06:00 Pulse Ox 92 L 01/09/23 06:00 O2 Del Method Room Air 01/09/23 06:00 Documenting provider has reviewed patient's vital signs: yes Common normals: no apparent distress Chest Common normals: inspection of chest normal Respiratory Common normals: no use of accessory muscles Auscultation: diminished lung sounds; no rhonchi and no wheezes Cardio Common normals: regular rate and regular rhythm GI Common normals: soft to palpation; tender Palpation: tender Progress Note: Objective Labs Labs: Short CBC 01/08/23 01/09/23 Range/Units 23:03 09:59 WBC 13.2 H 18.1 H (4.0-11.0) 10^3/uL Hgb 12.3 L 12.3 L (14.0-18.0) g/dL Hct 35.0 L 37.2 L (42.0-54.0) % Plt Count 246 202 (150-450) 10^3/uL BMP 01/08/23 23:03 Sodium 139 Potassium 3.6 Chloride 102 Carbon Dioxide 25.6 BUN 15.0 Creatinine 0.93 Glucose 119 H Calcium 9.2 Liver Function 01/08/23 Range/Units 23:03 Total Bilirubin 1.1 H (0.2-1.0) mg/dL Direct Bilirubin 0.2 (0.0-0.2) mg/dL AST 15 (15-37) U/L ALT 24 (16-63) U/L Alkaline Phosphatase 81 (46-116) U/L Albumin 3.6 (3.4-5.0) g/dL Progress Note: A&P Assessment and Plan (1) Gallstones: Assessment and Plan: Surgery, will discuss with surgery (2) Abdominal pain: Assessment and Plan: See above (3) Acute cholecystitis: Assessment and Plan: See above Plan Possible acute cholecystitis-continue with current antibiotics, blood cultures for fever, plan for surgery Leukocytosis likely secondary as a complication from the above-monitor daily, again blood cultures for fever Iron deficiency anemia-monitor daily TIA-hold off on anticoagulants secondary to the above Severe COPD-we will bring in home medications, continue to use
[2023-01-09 10:28] LABS: Anion Gap 12.4; BUN Creatinine Ratio 12.8; Calcium 9.5 mg/dL (8.5-10.1); Carbon Dioxide 28.9 mmol/L (21.0-32.0); Chloride 98 mmol/L (98-107); Estimated GFR (African America >60 (>=60); Estimated GFR (Non-African Ame >60 (>=60); Glucose 122 mg/dL (74-106); Potassium 4.3 mmol/L (3.5-5.1); Sodium 135 mmol/L (136-145)
[2023-01-09 10:36] LABS: Lactate/Lactic Acid 0.8 mmol/L (0.4-2.0)
[2023-01-09 10:43] LABS: Alanine Aminotransferase 20 U/L (16-63); Albumin Globulin Ratio 0.8; Albumin Level 3.4 g/dL (3.4-5.0); Alkaline Phosphatase 84 U/L (46-116); Aspartate Amino Transferase 17 U/L (15-37); Bilirubin Direct 0.3 mg/dL (0.0-0.2); Bilirubin Total 1.4 mg/dL (0.2-1.0); Globulin 4.3 g/dL; Total Protein 7.7 g/dL (6.4-8.2)
[2023-01-09] MEDS: ALBUTEROL SULFATE 2.5 MG/3 ML VIAL NEB IH (11:08)
--- NOTE | 2023-01-09 11:10 | RESP.RT ---
Patient uses his home medications and nebulizer
--- NOTE | 2023-01-09 11:15 | PM.GSCN ---
History of Present Illness Consult details Consult date: 01/09/23 Requesting physician: Gabriel Munoz Narrative: patient seen/examined/chart and ct images reviewed; consult dictated; 62 yo male with h/o CAD, htn, hypercholesterolemia, TIA, on Plavix, COPD, now with 3 day h/o upper abd pain; seen in ED 3 days ago and diagnosed with constipation, treated with laxatives, some improvement, then pain worsened yesterday; now with leukocytosis and slight elevation of bilirubin; abd ct scan with distension of gallbladder with small stones in body of gallbladder; no ductal dilation or free fluid. US pending;likely acute cholecystitis, verses choledocholithiasis; plan IV hydration, IV antibiotics, pain control; likely cholecystectomy tomorrow; hold Plavix, hold Eliquis tomorrow. [facility] Medical History (Updated 01/09/23 @ 04:32 by Narendra Duenas) Surgical History (Updated 01/09/23 @ 04:32 by Narendra Duenas) Family History (Updated 01/09/23 @ 04:37 by Narendra Duenas) Uncle Family history of COPD (chronic obstructive pulmonary disease) Grandmother Family history of cancer Brother Family history of diabetes mellitus Father Family history of myocardial infarction Social History (Updated 01/09/23 @ 04:37 by Narendra Duenas) Within the past year, how often did you have a drink containing alcohol: monthly or less Within the past year, how many standard drinks containing alcohol did you have on a typical day: 1 or 2 Within the past year, how often did you have six or more drinks on one occasion: never Total score: 0 Score interpretation: A score less than 4 is consistent with normal alcohol consumption. 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 Known occupational exposures/hazards: No Highest level of school completed/degree received: 12th grade, no diploma Are you now , , , , never or living with a partner: Little interest or pleasure in doing things: not at all Feeling down, depressed, or hopeless: not at all Feel stressed/tense/nervous/anxious/difficulty sleeping: not at all Life stressors: other Life stressor details: Cancer Due to disability, difficulty making decisions: No Do you think of yourself as: straight/heterosexual Gender Identity: male Meds Home Medications and Allergies Home Medications Medication Instructions Recorded Confirmed Type hyoscyamine sulfate 0.125 mg 0.125 mg PO Q6H PRN abdominal pain 01/07/23 01/09/23 Rx sublingual tablet (Levsin/SL) #20 tabs ondansetron 4 mg disintegrating 4 mg PO Q6H PRN nausea and 01/07/23 01/09/23 Rx tablet vomiting #20 tabs peg 3350-electrolytes 236 200 ml PO .q20min #2,000 mL 01/07/23 01/09/23 Rx gram-22.74 gram-6.74 gram-5.86 gram solution (Golytely) albuterol sulfate 90 mcg/actuation inhalation 01/09/23 History aerosol inhaler (ProAir HFA) atorvastatin 80 mg tablet 80 mg PO DAILY 01/09/23 01/09/23 History budesonide-formoterol HFA 160 2 inh inhalation BID 01/09/23 01/09/23 History mcg-4.5 mcg/actuation aerosol inhaler (Symbicort) cholecalciferol (vitamin D3) 125 5,000 unit PO DAILY 01/09/23 01/09/23 History mcg (5,000 unit) tablet (Vitamin D3) clopidogrel 75 mg tablet 75 mg PO DAILY 01/09/23 01/09/23 History losartan 50 mg tablet 50 mg PO DAILY 01/09/23 01/09/23 History metoprolol succinate 50 mg 50 mg PO DAILY 01/09/23 01/09/23 History tablet,extended release 24 hr nitroglycerin 0.4 mg sublingual mg 01/09/23 History tablet revefenacin 175 mcg/3 mL solution 175 mcg inhalation DAILY 01/09/23 01/09/23 History for nebulization (Paxtoni) spironolactone 50 mg tablet 50 mg PO DAILY 01/09/23 01/09/23 History Allergies Allergy/AdvReac Type Severity Reaction Status Date / Time No Known Drug Allergies Allergy Verified 01/06/23 22:43 Exam Constitutional Vital Signs, click to edit/add: Last Vital Signs Temp 97.9 F 01/09/23 06:00 Pulse 78 01/09/23 06:00 Resp 18 01/09/23 08:00 BP 146/82 H 01/09/23 06:00 Pulse Ox 98 01/09/23 11:09 O2 Del Method Nasal Cannula 01/09/23 11:09 O2 Flow Rate 2 01/09/23 11:09 Results Labs Labs: Abnormal lab results 01/08/23 01/09/23 Range/Units 23:03 09:59 WBC 13.2 H 18.1 H (4.0-11.0) 10^3/uL RBC 4.02 L 4.13 L (4.70-6.10) 10^6/uL Hgb 12.3 L 12.3 L (14.0-18.0) g/dL Hct 35.0 L 37.2 L (42.0-54.0) % Neut % (Auto) 81.0 H 88.7 H (43.0-75.0) % Lymph % (Auto) 9.3 L 3.3 L (20.5-60.0) % Eos % (Auto) 0.6 L (0.9-7.0) % Neut # (Auto) 10.7 H 16.1 H (1.4-6.5) 10^3/uL Lymph # (Auto) 0.6 L (1.2-3.8) 10^3/uL [place] # (Auto) 0.9 H 1.2 H (0.3-0.8) 10^3/uL Abs Immat Gran (auto) 0.07 H (0.00-0.03) 10^3/uL Sodium 135 L (136-145) mmol/L Glucose 119 H 122 H (74-106) mg/dL Total Bilirubin 1.1 H 1.4 H (0.2-1.0) mg/dL Direct Bilirubin 0.3 H (0.0-0.2) mg/dL Diabetes panel 01/08/23 01/09/23 Range/Units 23:03 09:59 Sodium 139 135 L (136-145) mmol/L Potassium 3.6 4.3 (3.5-5.1) mmol/L Chloride 102 98 (98-107) mmol/L Carbon Dioxide 25.6 28.9 (21.0-32.0) mmol/L BUN 15.0 11.0 (7.0-18.0) mg/dL Creatinine 0.93 0.86 (0.70-1.30) mg/dL Glucose 119 H 122 H (74-106) mg/dL Calcium 9.2 9.5 (8.5-10.1) mg/dL AST 15 17 (15-37) U/L ALT 24 20 (16-63) U/L Alkaline Phosphatase 81 84 (46-116) U/L Total Protein 7.9 7.7 (6.4-8.2) g/dL Albumin 3.6 3.4 (3.4-5.0) g/dL Calcium panel 01/08/23 01/09/23 Range/Units 23:03 09:59 Calcium 9.2 9.5 (8.5-10.1) mg/dL Albumin 3.6 3.4 (3.4-5.0) g/dL Pituitary panel 01/08/23 01/09/23 Range/Units 23:03 09:59 Sodium 139 135 L (136-145) mmol/L Potassium 3.6 4.3 (3.5-5.1) mmol/L Chloride 102 98 (98-107) mmol/L Carbon Dioxide 25.6 28.9 (21.0-32.0) mmol/L BUN 15.0 11.0 (7.0-18.0) mg/dL Creatinine 0.93 0.86 (0.70-1.30) mg/dL Glucose 119 H 122 H (74-106) mg/dL Calcium 9.2 9.5 (8.5-10.1) mg/dL Adrenal panel 01/08/23 01/09/23 Range/Units 23:03 09:59 Sodium 139 135 L (136-145) mmol/L Potassium 3.6 4.3 (3.5-5.1) mmol/L Chloride 102 98 (98-107) mmol/L Carbon Dioxide 25.6 28.9 (21.0-32.0) mmol/L BUN 15.0 11.0 (7.0-18.0) mg/dL Creatinine 0.93 0.86 (0.70-1.30) mg/dL Glucose 119 H 122 H (74-106) mg/dL Calcium 9.2 9.5 (8.5-10.1) mg/dL Total Bilirubin 1.1 H 1.4 H (0.2-1.0) mg/dL AST 15 17 (15-37) U/L ALT 24 20 (16-63) U/L Alkaline Phosphatase 81 84 (46-116) U/L Total Protein 7.9 7.7 (6.4-8.2) g/dL Albumin 3.6 3.4 (3.4-5.0) g/dL All other labs normal. Assessment and Plan Assessment and Plan (1) Gallstones: (2) Abdominal pain: (3) Acute cholecystitis:
[2023-01-09 13:16] LABS: Bilirubin Urine NEGATIVE (NEGATIVE); Blood Urine TRACE-I (NEGATIVE); Clarity Urine CLEAR (CLEAR); Color Urine YELLOW (YELLOW); Glucose Urine UA NEGATIVE (NEGATIVE); Ketones Urine 15 mg/dL (NEGATIVE); Leukocyte Esterase Urine NEGATIVE (NEGATIVE); Nitrite Urine NEGATIVE (NEGATIVE); Protein Urine TRACE mg/dL (NEG/TRACE); Specific Gravity Urine 1.025 (1.005-1.025); Urobilinogen Urine 0.2 EU/dL (0.2-1.0); pH Urine 5.5 (5.0-9.0)
[2023-01-09 13:26] LABS: Bacteria Urine NONE SEEN #/HPF (NONE SEEN); Crystals Seen? None Seen #/HPF (None Seen); Mucus Urine NONE SEEN (NONE SEEN); Squamous Epithelial Cell Urine RARE #/LPF (NONE/RARE); WBC Urine NONE SEEN #/HPF (NONE SEEN)
[2023-01-09 13:27] LABS: Cast Seen? NONE SEEN #/LPF (NONE SEEN); Urine Culture Indicated NO
[2023-01-09] MEDS: LACTATED RINGER'S SOLUTION 1,000 ML 125 ML IV ×2 (15:41→23:16)
--- NOTE | 2023-01-09 19:12 | RESP.RT ---
No PRN breathing tx. Pt sleeping. No respiratory distress noted.
[2023-01-10] VITALS (31 sets, daily range): BP systolic 120–136; BP diastolic 74–88; PULSE 82–103; RESP 11–22; TEMP 36.5–38.7; O2SAT 89–96
--- NOTE | 2023-01-10 | OP_ITS ---
OPERATION DATE: ??01/10/2023 PREOPERATIVE DIAGNOSIS: Acute cholecystitis. POSTOPERATIVE DIAGNOSIS:? Acute hemorrhagic, gangrenous cholecystitis with cholelithiasis. PROCEDURE:? Laparoscopic cholecystectomy. SURGEON:? Marbin Sanon M.D. ANESTHESIA:? General endotracheal. ESTIMATED BLOOD LOSS:? Less than 50 mL. INDICATIONS AND CONSENT:? Patient is a 62-year-old male with a five day history of abdominal pain, initially sent home from the ER with diagnosis of constipation.? Presented two days later with worsening pain and evidence of inflammation of the gallbladder with obstruction due to multiple small stones from the gallbladder.? He also had an elevated white blood cell count.? He was admitted, hydrated, placed on IV antibiotics.? Ultrasound confirmed obstruction of the gallbladder with no common duct issues.? He has normal lipase and some elevation of his alkaline phosphotase and total bilirubin.? Indications, risks, benefits, alternatives of proceeding with laparoscopic cholecystectomy were explained extensively to the patient, including risks of bleeding, infection, bile duct injury, bowel injury, need for intraoperative cholangiogram, postoperative ERCP, open procedure, blood clot, pulmonary embolus, heart attack, anesthetic complications, need for further surgery.? He has been on Plavix, but he has not taken that for the last several days.? All of his questions were answered.? Informed consent was obtained. PROCEDURE:? Patient was brought to the operating room, placed in the supine position.? General anesthesia was induced.? He was prepped and draped in the usual sterile fashion.? A supraumbilical incision was made with the scalpel blade and carried down through subcutaneous tissue using blunt dissection.? The fascia was grasped and incised.? Two 0 Vicryl stay sutures placed in either side of the midline fascia.? The Singh trocar was then inserted and secured using the stay sutures.? The abdomen was then insufflated with carbon dioxide to a pressure of 15 mm/Hg.? The patient was placed in reverse Trendelenburg position with the right side up.? Three 5 mm ports were then placed; one in the subxiphoid area, two in the right subcostal area, all under direct visualization.? The gallbladder was noted to be markedly inflamed, distended, hemorrhagic with some areas of gangrenous change.? No apparent perforation.? The gallbladder was aspirated with aspirating needle.? There was black bile.? This was sent for culture.? The gallbladder was then grasped with atraumatic grasper at the fundus, retracted cephalad and to the patient?s right.? There were marked inflammatory changes to the lower gallbladder.? The peritoneum was scored.? There was hemorrhagic fat surrounding the gallbladder that was carefully dissected free in order to allow the infundibulum to be grasped.? It was very friable.? Dissection was begun just below the infundibulum.? Because of the patient?s obesity and fatty omentum, and additional 5 mm port was placed in the left upper quadrant under direct visualization.? The 5 mm liver retractor was placed.? This helped aid in retraction medially to dissect out the cystic duct and artery.? These were carefully dissected out.? Some small arterial branches were controlled with regular clips and divided.? The proximal cystic duct was carefully dissected free and was collapsed with no evidence of stones within it.? It was clipped with two Hem-O-Ariadna clips proximally towards the common duct and one distally towards the gallbladder, then divided.? The gallbladder was then carefully taken down from the liver bed.? There were marked inflammatory changes.? Small vessels were controlled with regular clips.? Once the gallbladder was completely removed, it was brought out in an Endocatch bag through the umbilical port site.? There was a tear in the infundibulum from the graspers, but no significant spillage of stones.? The abdomen was then copiously irrigated with saline.? The liver bed was inspected.? There was some minimal oozing from the adhesions on the liver bed, but no active bleeding.? It was copiously irrigated with saline.? A 15 round RONAK drain was then placed through the lateral port site and placed in the liver bed and along the right pericolic gutter.? It was secured to the skin using a 3-0 nylon suture and placed to closed bulb suction.? All port sites were examined upon withdrawal of the ports. There was noted to be good hemostasis.? The umbilical port site fascia was then closed with 0 Vicryl figure of eight suture.? All port sites were infiltrated with 0.5% Marcaine.? The skin was then closed with interrupted 4-0 subcuticular Monocryl sutures and skin glue.? Sterile pressure dressings were applied to the umbilical incision.? Patient tolerated procedure well, was extubated and sent to recovery room in good condition. CC:? Nirav Valdez M.D. ? Gabriel Munoz M.D. SEBASTAIND
[2023-01-10] MEDS: HYDROMORPHONE HCL 0.5 MG/0.5 ML SYRINGE 1 MG IV ×2 (02:18→06:21)
[2023-01-10] MEDS: PIPERACILLIN SODIUM/TAZOBACTAM 3.375 GM in 0.9 % SODIUM CHLORIDE 50 ML IV (04:01)
[2023-01-10] MEDS: FAMOTIDINE/PF 20 MG/2 ML VIAL IV (04:01)
[2023-01-10 04:54] LABS: Basophils Absolute Auto 0.1 10^3/uL (0.0-0.1); Basophils Percent Auto 0.3 % (0.2-2.0); Eosinophils Absolute Auto 0.3 10^3/uL (0.0-0.7); Eosinophils Percent Auto 1.6 % (0.9-7.0); Hematocrit 36.6 % (42.0-54.0); Hemoglobin 12.1 g/dL (14.0-18.0); Immature Granulocytes Abs Auto 0.13 10^3/uL (0.00-0.03); Immature Granulocytes Pct Auto 0.7 % (0.0-0.5); Lymphocytes Absolute Auto 1.2 10^3/uL (1.2-3.8); Lymphocytes Percent Auto 6.1 % (20.5-60.0); Mean Corpuscular HGB Conc 33.1 g/dL (29.9-35.2); Mean Corpuscular Hemoglobin 30.1 pg (25.9-34.0); Mean Platelet Volume 10.9 fL (9.5-13.5); Monocytes Absolute Auto 1.3 10^3/uL (0.3-0.8); Monocytes Percent Auto 6.8 % (1.7-12.0); Neutrophils Absolute Auto 16.7 10^3/uL (1.4-6.5); Neutrophils Percent Auto 84.5 % (43.0-75.0); Platelet Count 232 10^3/uL (150-450); Red Blood Count 4.02 10^6/uL (4.70-6.10); Red Cell Distribution Width 13.2 % (11.0-15.0); White Blood Count 19.7 10^3/uL (4.0-11.0)
--- NOTE | 2023-01-10 06:20 | PM.GSPN ---
Progress Note: A&P Assessment and Plan (1) Gallstones: (2) Abdominal pain: (3) Acute cholecystitis: Assessment and Plan: US reviewed; wbc increased today; all consistent with acute cholecystitis; Plan plan LS cholecystectomy, possible IOC, possible open procedure today; informed consent obtained; continue IV antibiotics, supportive care. Subjective Subjective Interval history: pain controlled; no N/V; afebrile Exam Narrative Exam Narrative: abd: obese, soft, + bs, tender RUQ with local peritoneal signs, no masses Constitutional Vital Signs, click to edit/add: Last Vital Signs Temp 99.3 F 01/10/23 06:00 Pulse 102 H 01/10/23 06:00 Resp 20 01/10/23 06:00 BP 134/80 01/10/23 06:00 Pulse Ox 96 01/10/23 06:00 O2 Del Method Room Air 01/10/23 06:00 O2 Flow Rate 2 01/09/23 11:09
[2023-01-10 06:33] LABS: Alanine Aminotransferase 20 U/L (16-63); Albumin Globulin Ratio 0.7; Albumin Level 3.1 g/dL (3.4-5.0); Alkaline Phosphatase 80 U/L (46-116); Anion Gap 14.7; Aspartate Amino Transferase 15 U/L (15-37); BUN Creatinine Ratio 10.6; Bilirubin Total 1.9 mg/dL (0.2-1.0); Carbon Dioxide 27.6 mmol/L (21.0-32.0); Chloride 99 mmol/L (98-107); Estimated GFR (African America >60 (>=60); Estimated GFR (Non-African Ame >60 (>=60); Globulin 4.4 g/dL; Glucose 105 mg/dL (74-106); Potassium 3.3 mmol/L (3.5-5.1); Sodium 138 mmol/L (136-145); Total Protein 7.5 g/dL (6.4-8.2)
--- NOTE | 2023-01-10 08:48 | P.PN_ITS ---
Progress Note: Subjective Subjective Interval history: No new complaints, pain fairly well controlled, does have some shortness of breath does not feel like it is his COPD acting up. Exam Constitutional Vital Signs, click to edit/add: Last Vital Signs Temp 99.6 F 01/10/23 07:00 Pulse 103 H 01/10/23 07:00 Resp 19 01/10/23 07:00 BP 128/78 01/10/23 07:00 Pulse Ox 95 01/10/23 07:00 O2 Del Method Room Air 01/10/23 07:00 O2 Flow Rate 2 01/09/23 11:09 Documenting provider has reviewed patient's vital signs: yes Common normals: no apparent distress Chest Common normals: inspection of chest normal Respiratory Common normals: no use of accessory muscles Auscultation: diminished lung sounds; no rhonchi and no wheezes Cardio Common normals: regular rate and regular rhythm GI Common normals: soft to palpation; tender Palpation: tender Progress Note: Objective Labs Labs: Short CBC 01/09/23 01/10/23 Range/Units 09:59 04:30 WBC 18.1 H 19.7 H (4.0-11.0) 10^3/uL Hgb 12.3 L 12.1 L (14.0-18.0) g/dL Hct 37.2 L 36.6 L (42.0-54.0) % Plt Count 202 232 (150-450) 10^3/uL BMP 01/09/23 01/10/23 09:59 04:30 Sodium 135 L 138 Potassium 4.3 3.3 L Chloride 98 99 Carbon Dioxide 28.9 27.6 BUN 11.0 10.0 Creatinine 0.86 0.94 Glucose 122 H 105 Calcium 9.5 9.0 Liver Function 01/09/23 01/10/23 Range/Units 09:59 04:30 Total Bilirubin 1.4 H 1.9 H (0.2-1.0) mg/dL Direct Bilirubin 0.3 H (0.0-0.2) mg/dL AST 17 15 (15-37) U/L ALT 20 20 (16-63) U/L Alkaline Phosphatase 84 80 (46-116) U/L Albumin 3.4 3.1 L (3.4-5.0) g/dL Urine 01/09/23 Range/Units 13:00 Urine Color Yellow (YELLOW) Urine Clarity Clear (CLEAR) Urine pH 5.5 (5.0-9.0) Ur Specific Maxwell 1.025 (1.005-1.025) Urine Protein Trace (NEG/TRACE) mg/dL Urine Glucose (UA) Negative (NEGATIVE) mg/dL Progress Note: A&P Assessment and Plan (1) Gallstones: Assessment and Plan: Surgery, will discuss with surgery (2) Abdominal pain: Assessment and Plan: See above (3) Acute cholecystitis: Assessment and Plan: See above Plan acute cholecystitis with jaundice-plan for surgery later today but white blood cell count is higher so we will adjust antibiotics. If fluid present for culture rule out will be obtained to surgery. Leukocytosis likely secondary as a complication from the above--adjust IV antibiotics secondary to white blood cell count increasing. Iron deficiency anemia-monitor daily-down somewhat today, will continue to monitor TIA-hold off on anticoagulants secondary to the above Severe COPD-we will bring in home medications, continue to use Hypokalemia-supplement Patient continued to require inpatient admission secondary to elevated white blood cell count, progression of bilirubin elevation, change in antibiotics today, surgery later today, potassium low enough requiring IV supplementation.
--- NOTE | 2023-01-10 08:55 | CM.NOTE ---
Rounds made with Dr. Munoz, pt awaiting OR this afternoon. No discharge today. Pt up ad luigi in room. No discharge needs identified.
--- NOTE | 2023-01-10 09:01 | CM.NOTE ---
Important Message From Medicare discussed with pt, pt verbalizes understanding and signs paper. Original given to pt and copy placed on pt's chart.
[2023-01-10] MEDS: LACTATED RINGER'S SOLUTION 1,000 ML 125 ML IV ×2 (09:03→15:38)
[2023-01-10] MEDS: METRONIDAZOLE/SODIUM CHLORIDE 500 MG/100 ML PREMIX 100 MG IV ×3 (09:05→22:27)
[2023-01-10] MEDS: METOPROLOL SUCCINATE 50 MG TAB.ER.24H PO (09:06)
[2023-01-10] MEDS: POTASSIUM CHLORIDE 40 MEQ in 0.9 % SODIUM CHLORIDE 250 ML 67.5 MEQ IV (09:32)
[2023-01-10] MEDS: HYDROMORPHONE HCL 1 MG/ML CARTRIDGE IVP ×2 (10:49→15:38)
[2023-01-10] MEDS: LACTATED RINGER'S SOLUTION 1,000 ML 50 ML IV (13:56)
[2023-01-10] MEDS: BUPIVACAINE HCL 0.5% PF 50 MG/10 ML VIAL 20 ML INJ (14:38)
[2023-01-10] MEDS: HYDROMORPHONE HCL 0.5 MG/0.5 ML SYRINGE IV ×2 (15:08→15:23)
[2023-01-10] MEDS: PANTOPRAZOLE SODIUM 40 MG VIAL IV (16:51)
[2023-01-10] MEDS: ACETAMINOPHEN 325 MG TABLET 650 MG PO ×2 (18:01→22:34)
[2023-01-10 20:05] LABS: Hematocrit 29.4 % (42.0-54.0); Hemoglobin 9.7 g/dL (14.0-18.0); Mean Corpuscular Hemoglobin 30.6 pg (25.9-34.0); Mean Corpuscular Volume 92.7 fL (80.0-94.0); Mean Platelet Volume 10.5 fL (9.5-13.5); Platelet Count 199 10^3/uL (150-450); Red Blood Count 3.17 10^6/uL (4.70-6.10); Red Cell Distribution Width 13.2 % (11.0-15.0)
--- NOTE | 2023-01-10 20:20 | PC.NURSE ---
RONAK drained and stripped bloody drainage
[2023-01-10] MEDS: DOCUSATE SODIUM 100 MG CAPSULE PO (20:30)
[2023-01-11] VITALS (7 sets, daily range): BP systolic 114–156; BP diastolic 61–95; PULSE 78–89; RESP 15–18; TEMP 36.7–36.9; O2SAT 85–97
[2023-01-11] MEDS: LACTATED RINGER'S SOLUTION 1,000 ML 125 ML IV (01:05)
[2023-01-11] MEDS: METRONIDAZOLE/SODIUM CHLORIDE 500 MG/100 ML PREMIX 100 MG IV ×2 (04:20→11:31)
[2023-01-11 04:48] LABS: Basophils Percent Auto 0.1 % (0.2-2.0); Eosinophils Percent Auto 0.1 % (0.9-7.0); Hemoglobin 9.4 g/dL (14.0-18.0); Immature Granulocytes Abs Auto 0.06 10^3/uL (0.00-0.03); Immature Granulocytes Pct Auto 0.4 % (0.0-0.5); Lymphocytes Absolute Auto 0.5 10^3/uL (1.2-3.8); Lymphocytes Percent Auto 3.5 % (20.5-60.0); Mean Corpuscular HGB Conc 33.6 g/dL (29.9-35.2); Mean Corpuscular Hemoglobin 30.2 pg (25.9-34.0); Mean Platelet Volume 11.1 fL (9.5-13.5); Monocytes Absolute Auto 0.9 10^3/uL (0.3-0.8); Monocytes Percent Auto 6.4 % (1.7-12.0); Neutrophils Absolute Auto 12.4 10^3/uL (1.4-6.5); Neutrophils Percent Auto 89.5 % (43.0-75.0); Platelet Count 194 10^3/uL (150-450); Red Blood Count 3.11 10^6/uL (4.70-6.10); Red Cell Distribution Width 13.2 % (11.0-15.0); White Blood Count 13.8 10^3/uL (4.0-11.0)
[2023-01-11] MEDS: HYDROMORPHONE HCL 1 MG/ML CARTRIDGE IVP ×2 (05:14→08:36)
[2023-01-11 05:18] LABS: Alanine Aminotransferase 24 U/L (16-63); Albumin Globulin Ratio 0.6; Albumin Level 2.5 g/dL (3.4-5.0); Alkaline Phosphatase 69 U/L (46-116); Anion Gap 8.9; Aspartate Amino Transferase 26 U/L (15-37); BUN Creatinine Ratio 10.1; Bilirubin Total 0.7 mg/dL (0.2-1.0); Calcium 8.5 mg/dL (8.5-10.1); Carbon Dioxide 29.9 mmol/L (21.0-32.0); Chloride 101 mmol/L (98-107); Estimated GFR (African America >60 (>=60); Estimated GFR (Non-African Ame >60 (>=60); Globulin 3.9 g/dL; Glucose 129 mg/dL (74-106); Potassium 3.8 mmol/L (3.5-5.1); Sodium 136 mmol/L (136-145); Total Protein 6.4 g/dL (6.4-8.2)
--- NOTE | 2023-01-11 08:17 | CM.NOTE ---
Rounds made with Dr. Munoz pt up ambulating in hallway. Possible discharge to home today if ok with Dr. Sanon.
[2023-01-11] MEDS: METOPROLOL SUCCINATE 50 MG TAB.ER.24H PO (09:09)
[2023-01-11] MEDS: LOSARTAN POTASSIUM 50 MG TABLET PO (09:09)
[2023-01-11] MEDS: DOCUSATE SODIUM 100 MG CAPSULE PO (09:09)
--- NOTE | 2023-01-11 09:35 | P.DS_ITS ---
DS: Providers Provider Date of admission: 01/09/23 04:10 Primary care physician: KRYSTIN CAIN Consults: 01/09/23 03:37 Consult to General Surgeon Routine Consulting Provider: Marbin Sanon Reason for consultation: acute cholecystitis Has provider been notified: Yes DS: Diagnosis Discharge Diagnosis (1) Gallstones: (2) Abdominal pain: (3) Acute cholecystitis: Plan acute cholecystitis with jaundice-plan for surgery later today but white blood cell count is higher so we will adjust antibiotics. If fluid present for culture rule out will be obtained to surgery. Leukocytosis likely secondary as a complication from the above--adjust IV antibiotics secondary to white blood cell count increasing. Iron deficiency anemia-monitor daily-down somewhat today, will continue to monitor TIA-hold off on anticoagulants secondary to the above Severe COPD-we will bring in home medications, continue to use Hypokalemia-supplement DS: Summary Time Spent with Patient Time attestation: Total time spent providing and/or coordinating discharge services: Exam Constitutional Vital Signs, click to edit/add: Last Vital Signs Temp 98.2 F 01/11/23 06:00 Pulse 82 01/11/23 06:00 Resp 18 01/11/23 06:00 BP 156/95 H 01/11/23 06:00 Pulse Ox 96 01/11/23 06:00 O2 Del Method Nasal Cannula 01/11/23 06:00 O2 Flow Rate 2 01/11/23 06:00 DS: Data Data Completed and Pending Labs on day of discharge: Labs from last 24 hours 01/11/23 01/10/23 03:46 19:58 WBC 13.8 H 16.0 H RBC 3.11 L 3.17 L Hgb 9.4 L 9.7 L Hct 28.0 L 29.4 L MCV 90.0 92.7 MCH 30.2 30.6 MCHC 33.6 33.0 RDW 13.2 13.2 Plt Count 194 199 MPV 11.1 10.5 Neut % (Auto) 89.5 H Lymph % (Auto) 3.5 L [place] % (Auto) 6.4 Eos % (Auto) 0.1 L Baso % (Auto) 0.1 L Neut # (Auto) 12.4 H Lymph # (Auto) 0.5 L [place] # (Auto) 0.9 H Eos # (Auto) 0.0 Baso # (Auto) 0.0 Abs Immat Gran (auto) 0.06 H Imm/Tot Granulo (auto) 0.4 Sodium 136 Potassium 3.8 Chloride 101 Carbon Dioxide 29.9 Anion Gap 8.9 BUN 8.0 Creatinine 0.79 Est GFR ( Amer) >60 Est GFR (Non-Af Amer) >60 BUN/Creatinine Ratio 10.1 Glucose 129 H Calcium 8.5 Total Bilirubin 0.7 AST 26 ALT 24 Alkaline Phosphatase 69 Total Protein 6.4 Albumin 2.5 L Globulin 3.9 Albumin/Globulin Ratio 0.6 Lipase 47.0 L Discharge Plan Discharge Condition: Good Discharge Medications: No Action peg 3350-electrolytes [Golytely] 236-22.74-6.74 -5.86 gram recon soln 200 ml PO .q20min Qty: 2000 0RF Hold Instructions: Previous Med Rx Instructions: until fecal effluent is clear hyoscyamine sulfate [Levsin/SL] 0.125 mg tablet, sublingual 0.125 mg PO Q6H PRN (Reason: abdominal pain) Qty: 20 0RF ondansetron 4 mg tablet,disintegrating 4 mg PO Q6H PRN (Reason: nausea and vomiting) Qty: 20 0RF losartan 50 mg tablet 50 mg PO DAILY atorvastatin 80 mg tablet 80 mg PO DAILY metoprolol succinate 50 mg tablet extended release 24 hr 50 mg PO DAILY clopidogrel 75 mg tablet 75 mg PO DAILY nitroglycerin 0.4 mg tablet, sublingual 0.4 mg sublingual .q5 PRN (Reason: chest pain) albuterol sulfate [ProAir HFA] 90 mcg/actuation HFA aerosol inhaler 2 puff INHALATION Q6H PRN (Reason: shortness of breath or wheezing) spironolactone 50 mg tablet 50 mg PO DAILY Yupelri 175 mcg/3 mL solution for nebulization 175 mcg inhalation DAILY budesonide-formoterol [Symbicort] 160-4.5 mcg/actuation HFA aerosol inhaler 2 inh inhalation BID cholecalciferol (vitamin D3) [Vitamin D3] 125 mcg (5,000 unit) tablet 5,000 unit PO DAILY
--- NOTE | 2023-01-11 10:11 | PC.NURSE ---
dressing changed to abdomen around LILA drain due to sanguinous drainage. stripped drain and emptied lila for 10 ccs of sanguinous drainage.
[2023-01-11] MEDS: ALBUTEROL SULFATE 2.5 MG/3 ML VIAL NEB IH (11:12)
[2023-01-11] MEDS: LIDOCAINE HCL 1% 200 MG/20 ML MDV 4 ML INJ (12:30)
--- NOTE | 2023-01-11 12:38 | PM.GSPN ---
Progress Note: A&P Assessment and Plan (1) Gallstones: (2) Abdominal pain: (3) Acute cholecystitis: Assessment and Plan: doing well, mild ileus. Plan stitch placed at drain site under local anesthesia to minimize leakage around drain; add Toradol; no oral pain meds yet; continue full liquids as tolerated; ambulating well; continue supportive care; possible discharge tomorrow, will reevaluate in am. Subjective Subjective Interval history: POD # 1 s/p LS cholecystectomy sore at drain site, bloating, poor appetite; no N/V; voiding well, passing gas, no bm. Exam Constitutional Vital Signs, click to edit/add: Last Vital Signs Temp 98.5 F 01/11/23 10:09 Pulse 89 01/11/23 10:09 Resp 16 01/11/23 10:09 BP 114/61 01/11/23 10:09 Pulse Ox 93 L 01/11/23 11:13 O2 Del Method Room Air 01/11/23 11:13 O2 Flow Rate 2 01/11/23 06:00 GI Other: soft, minimally distended; hypoactive bs; incisions without erythema or drainage; lila with serosanguinous drainage, minimal drainage around drain site.
[2023-01-11] MEDS: KETOROLAC TROMETHAMINE 30 MG/ML VIAL IVP (13:08)
[2023-01-11] MEDS: PANTOPRAZOLE SODIUM 40 MG VIAL IV (15:08)
[2023-01-11] MEDS: CEFTAZIDIME 2,000 MG in 0.9 % SODIUM CHLORIDE 100 ML 200 MG IV (17:33)
[2023-01-11] MEDS: KETOROLAC TROMETHAMINE 30 MG/ML VIAL 15 MG IVP (18:43)
--- NOTE | 2023-01-11 22:02 | P.PN_ITS ---
Progress Note: Subjective Subjective Interval history: Patient dates he does Feel Better Than the Previous Day. Exam Constitutional Vital Signs, click to edit/add: Last Vital Signs Temp 98.0 F 01/11/23 14:57 Pulse 86 01/11/23 14:57 Resp 16 01/11/23 14:57 BP 128/74 01/11/23 14:57 Pulse Ox 93 L 01/11/23 14:57 O2 Del Method Room Air 01/11/23 14:57 O2 Flow Rate 2 01/11/23 06:00 Documenting provider has reviewed patient's vital signs: yes Common normals: no apparent distress Chest Common normals: inspection of chest normal Respiratory Common normals: no use of accessory muscles Auscultation: diminished lung sounds; no rhonchi and no wheezes Cardio Common normals: regular rate and regular rhythm GI Common normals: soft to palpation; tender Palpation: tender Progress Note: Objective Labs Labs: Short CBC 01/11/23 Range/Units 03:46 WBC 13.8 H (4.0-11.0) 10^3/uL Hgb 9.4 L (14.0-18.0) g/dL Hct 28.0 L (42.0-54.0) % Plt Count 194 (150-450) 10^3/uL BMP 01/11/23 03:46 Sodium 136 Potassium 3.8 Chloride 101 Carbon Dioxide 29.9 BUN 8.0 Creatinine 0.79 Glucose 129 H Calcium 8.5 Liver Function 01/11/23 Range/Units 03:46 Total Bilirubin 0.7 (0.2-1.0) mg/dL AST 26 (15-37) U/L ALT 24 (16-63) U/L Alkaline Phosphatase 69 (46-116) U/L Albumin 2.5 L (3.4-5.0) g/dL Progress Note: A&P Assessment and Plan (1) Gallstones: Assessment and Plan: Surgery, will discuss with surgery (2) Abdominal pain: Assessment and Plan: See above (3) Acute cholecystitis: Assessment and Plan: See above Plan acute cholecystitis with jaundice-plan for surgery yesterday. Did have postoperative fever. But white blood cell count is better today. Maintain current antibiotics. Will discuss case with surgery. Leukocytosis likely secondary as a complication from the above--adjusted IV antibiotics secondary to white blood cell count increasing yesterday Iron deficiency anemia-monitor daily-down somewhat today, will continue to monitor TIA-hold off on anticoagulants secondary to the above Severe COPD-we will bring in home medications, continue to use Hypokalemia-supplement
[2023-01-12] MEDS: CEFTAZIDIME 2,000 MG in 0.9 % SODIUM CHLORIDE 100 ML 200 MG IV
[2023-01-12 04:57] VITALS: O2SAT 90
[2023-01-12 05:36] LABS: Basophils Percent Auto 0.5 % (0.2-2.0); Eosinophils Absolute Auto 0.6 10^3/uL (0.0-0.7); Eosinophils Percent Auto 6.5 % (0.9-7.0); Hematocrit 27.1 % (42.0-54.0); Hemoglobin 8.9 g/dL (14.0-18.0); Immature Granulocytes Abs Auto 0.04 10^3/uL (0.00-0.03); Immature Granulocytes Pct Auto 0.5 % (0.0-0.5); Lymphocytes Absolute Auto 1.2 10^3/uL (1.2-3.8); Lymphocytes Percent Auto 13.6 % (20.5-60.0); Mean Corpuscular HGB Conc 32.8 g/dL (29.9-35.2); Mean Corpuscular Hemoglobin 30.3 pg (25.9-34.0); Mean Corpuscular Volume 92.2 fL (80.0-94.0); Mean Platelet Volume 11.3 fL (9.5-13.5); Monocytes Absolute Auto 0.5 10^3/uL (0.3-0.8); Monocytes Percent Auto 6.3 % (1.7-12.0); Neutrophils Absolute Auto 6.3 10^3/uL (1.4-6.5); Neutrophils Percent Auto 72.6 % (43.0-75.0); Platelet Count 202 10^3/uL (150-450); Red Blood Count 2.94 10^6/uL (4.70-6.10); Red Cell Distribution Width 13.2 % (11.0-15.0); White Blood Count 8.6 10^3/uL (4.0-11.0)
[2023-01-12 05:52] LABS: Alanine Aminotransferase 25 U/L (16-63); Albumin Globulin Ratio 0.6; Albumin Level 2.4 g/dL (3.4-5.0); Alkaline Phosphatase 60 U/L (46-116); Anion Gap 9.5; Aspartate Amino Transferase 18 U/L (15-37); BUN Creatinine Ratio 14.6; Bilirubin Total 0.4 mg/dL (0.2-1.0); Calcium 8.4 mg/dL (8.5-10.1); Carbon Dioxide 29.9 mmol/L (21.0-32.0); Chloride 103 mmol/L (98-107); Estimated GFR (African America >60 (>=60); Estimated GFR (Non-African Ame >60 (>=60); Globulin 3.7 g/dL; Glucose 95 mg/dL (74-106); Potassium 3.4 mmol/L (3.5-5.1); Sodium 139 mmol/L (136-145); Total Protein 6.1 g/dL (6.4-8.2)
[2023-01-12] MEDS: KETOROLAC TROMETHAMINE 30 MG/ML VIAL 15 MG IVP ×2 (06:37→12:26)
--- NOTE | 2023-01-12 06:50 | PM.GSPN ---
Progress Note: A&P Assessment and Plan (1) Gallstones: (2) Abdominal pain: (3) Acute cholecystitis: Assessment and Plan: doing well, normal wbc; h/h stable, normal lfts Plan likely dicharge to home later today; will remove drain; f/u with me next week; call sooner if problems/questions. Subjective Subjective Interval history: POD # 2 s/p LS cholecystectomy for gangrenous cholecystitis doing well, denies pain; no N/V; multiple bowel movements yesterday; tolerating regular diet Exam Constitutional Vital Signs, click to edit/add: Last Vital Signs Temp 98.2 F 01/11/23 22:30 Pulse 78 01/11/23 22:30 Resp 15 01/11/23 22:30 BP 129/82 01/11/23 22:30 Pulse Ox 90 L 01/12/23 04:57 O2 Del Method Room Air 01/12/23 04:57 O2 Flow Rate 2 01/11/23 06:00 GI Other: abd: soft, normal bs, nondistended, incisions without erythema or drainage; lila with minimal serosanguineous drainage.
[2023-01-12 06:54] VITALS: BP 110/70; PULSE 50; RESP 14; TEMP 36.6; O2SAT 93
[2023-01-12] MEDS: CEFTAZIDIME 2,000 MG in 0.9 % SODIUM CHLORIDE 100 ML 100 MG IV (08:44)
[2023-01-12] MEDS: METOPROLOL SUCCINATE 50 MG TAB.ER.24H PO (08:45)
[2023-01-12] MEDS: DOCUSATE SODIUM 100 MG CAPSULE PO (08:45)
[2023-01-12] MEDS: LOSARTAN POTASSIUM 50 MG TABLET PO (08:45)
--- NOTE | 2023-01-12 09:27 | P.DS_ITS ---
DS: Providers Provider Date of admission: 01/09/23 04:10 Primary care physician: KRYSTIN CAIN Consults: 01/09/23 03:37 Consult to General Surgeon Routine Consulting Provider: Marbin Sanon Reason for consultation: acute cholecystitis Has provider been notified: Yes DS: Diagnosis Discharge Diagnosis (1) Gallstones: (2) Abdominal pain: (3) Acute cholecystitis: Plan acute cholecystitis with jaundice Leukocytosis likely secondary as a complication from the above Iron deficiency anemia TIA Severe COPD Hypokalemia ? DS: Summary Hospital Course Hospital Course: Patient developed right upper quadrant pain and had hyperbilirubinemia with it. CT scan suggested acute cholecystitis, consultation to surgery who agreed, patient was taken to the operating room and had a cholecystectomy laparoscopically completed. Patient did have a fever in the immediate postop period. Patient had elevated white blood cell count but that improved throughout the hospital stay and is normal at the time of discharge. Only other complicating factor for him was a COPD but despite all of the above his COPD remained stable with his home medications. At this point he is ambulating well pain very well controlled. He will be discharged home in improving condition. Medications see list. Follow-up with surgery per protocol. Time Spent with Patient Time attestation: Total time spent providing and/or coordinating discharge services: Exam Constitutional Vital Signs, click to edit/add: Last Vital Signs Temp 98 F 01/12/23 06:54 Pulse 50 L 01/12/23 06:54 Resp 14 01/12/23 06:54 BP 110/70 01/12/23 06:54 Pulse Ox 93 L 01/12/23 06:54 O2 Del Method Room Air 01/12/23 06:54 O2 Flow Rate 2 01/11/23 06:00 Documenting provider has reviewed patient's vital signs: yes Common normals: no apparent distress Chest Common normals: inspection of chest normal Respiratory Common normals: no use of accessory muscles Auscultation: diminished lung sounds; no rhonchi and no wheezes Cardio Common normals: regular rate and regular rhythm GI Common normals: soft to palpation; tender Palpation: tender DS: Data Data Completed and Pending Labs on day of discharge: Labs from last 24 hours 01/12/23 04:22 WBC 8.6 RBC 2.94 L Hgb 8.9 L Hct 27.1 L MCV 92.2 MCH 30.3 MCHC 32.8 RDW 13.2 Plt Count 202 MPV 11.3 Neut % (Auto) 72.6 Lymph % (Auto) 13.6 L [place] % (Auto) 6.3 Eos % (Auto) 6.5 Baso % (Auto) 0.5 Neut # (Auto) 6.3 Lymph # (Auto) 1.2 [place] # (Auto) 0.5 Eos # (Auto) 0.6 Baso # (Auto) 0.0 Abs Immat Gran (auto) 0.04 H Imm/Tot Granulo (auto) 0.5 Sodium 139 Potassium 3.4 L Chloride 103 Carbon Dioxide 29.9 Anion Gap 9.5 BUN 13.0 Creatinine 0.89 Est GFR ( Amer) >60 Est GFR (Non-Af Amer) >60 BUN/Creatinine Ratio 14.6 Glucose 95 Calcium 8.4 L Total Bilirubin 0.4 AST 18 ALT 25 Alkaline Phosphatase 60 Total Protein 6.1 L Albumin 2.4 L Globulin 3.7 Albumin/Globulin Ratio 0.6 Lipase 160.0 Preliminary micro results at discharge 01/10/23 14:23 Body Fluid Culture - Preliminary Gallbladder Fluid Discharge Plan Discharge Disposition: Home, Self-Care Condition: Good Discharge Medications: Continued peg 3350-electrolytes [Golytely] 236-22.74-6.74 -5.86 gram recon soln 200 ml PO .q20min Qty: 2000 0RF Hold Instructions: Previous Med Rx Instructions: until fecal effluent is clear hyoscyamine sulfate [Levsin/SL] 0.125 mg tablet, sublingual 0.125 mg PO Q6H PRN (Reason: abdominal pain) Qty: 20 0RF ondansetron 4 mg tablet,disintegrating 4 mg PO Q6H PRN (Reason: nausea and vomiting) Qty: 20 0RF losartan 50 mg tablet 50 mg PO DAILY atorvastatin 80 mg tablet 80 mg PO DAILY metoprolol succinate 50 mg tablet extended release 24 hr 50 mg PO DAILY clopidogrel 75 mg tablet 75 mg PO DAILY nitroglycerin 0.4 mg tablet, sublingual 0.4 mg sublingual .q5 PRN (Reason: chest pain) albuterol sulfate [ProAir HFA] 90 mcg/actuation HFA aerosol inhaler 2 puff INHALATION Q6H PRN (Reason: shortness of breath or wheezing) spironolactone 50 mg tablet 50 mg PO DAILY Yupelri 175 mcg/3 mL solution for nebulization 175 mcg inhalation DAILY budesonide-formoterol [Symbicort] 160-4.5 mcg/actuation HFA aerosol inhaler 2 inh inhalation BID cholecalciferol (vitamin D3) [Vitamin D3] 125 mcg (5,000 unit) tablet 5,000 unit PO DAILY Diet: low fat, low cholesterol Patient Instructions: Laparoscopic Cholecystectomy (DC) Forms: Portal Instructions Follow Up Appointments: Follow up with Dr Sanon 01/19 at 3:40pm. Please arrive [address] Cain [phone] for appt once new patient paperwork completed. Discharge Date/Time: 01/12/23 13:21
--- NOTE | 2023-01-12 09:33 | CM.NOTE ---
Rounds made with mal Montero for discharge to home. Dr. Sanon also in pt's room and in agreement with discharge today.
--- NOTE | 2023-01-14 15:01 | CM.DCFOLLOWU ---
1st attempt discharge follow up call made by Manjinder Manning on 01/14/23, no answer at this time.
--- NOTE | 2023-01-17 13:57 | CM.DCFOLLOWU ---
Person spoke with: patient How are you feeling? really good How is your pain? no pain Did you understand your discharge instructions? yes Do you have any questions about your discharge instructions? no Were you given any prescriptions at discharge? no Were you able to get your prescriptions filled? Do you understand how to take your medications as ordered? yes Do you have any questions about your follow up appointment and do you plan to keep your follow up appointment? no questions, yes keeping follow up Is there anything else that you would like to discuss? no Questions/Comments/Concerns/Other:
== END 2023-01-12 13:21 | disposition home or self-care (01) | DRG 419 ==
LOC: ER 01-09 03:34 → MS 01-09 04:28
PROVIDERS: Surgery; Admitting Provider Internal Medicine; Emergency Provider Emergency Medicine; PCP Family Medicine; Visit Provider Family Medicine
PROC: 0FT44ZZ Resection of Gallbladder, Percutaneous Endoscopic Approach (ICD-10-PCS; principal; 2023-01-10 12:30)
DX: K80.00 Calculus of gallbladder with acute cholecystitis without obstruction (principal); K82.A1 Gangrene of gallbladder in cholecystitis; I10 Essential (primary) hypertension; J44.9 Chronic obstructive pulmonary disease, unspecified; I25.10 Atherosclerotic heart disease of native coronary artery without angina pectoris; E78.5 Hyperlipidemia, unspecified; E66.01 Morbid (severe) obesity due to excess calories; D50.9 Iron deficiency anemia, unspecified; Z68.35 Body mass index [BMI] 35.0-35.9, adult; R50.82 Postprocedural fever; Z86.73 Personal history of transient ischemic attack (TIA), and cerebral infarction without residual deficits; Z79.02 Long term (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 antithrombotics/antiplatelets; Z85.828 Personal history of other malignant neoplasm of skin; E87.6 Hypokalemia; Z83.3 Family history of diabetes mellitus; Z83.6 Family history of other diseases of the respiratory system; Z82.49 Family history of ischemic heart disease and other diseases of the circulatory system; Z87.891 Personal history of nicotine dependence; Z79.899 Other long term (current) drug therapy; Z90.49 Acquired absence of other specified parts of digestive tract
CPT/HCPCS: 36415; 71045; 71275; 74174; 76705; 80048; 80053; 80076; 81001; 82150; 83605; 83690; 84484; 85025; 85027; 87070; 88304; 93005; 94640; 94761; 96365; 96366; 96367; 96372; 96375; 96376; 99285; 99999; J0500; J1170; J2704; J3480; Q9967

== ENCOUNTER 2023-01-25 12:13 | Emergency (ER) | payer OTHER, MEDICARE, SELFPAY ==
[2023-01-25] VITALS (24 sets, daily range): BP systolic 117–149; BP diastolic 66–95; PULSE 78–98; RESP 14–24; TEMP 36.6; O2SAT 92–100; BMI 34.9
--- NOTE | 2023-01-25 12:39 | XR_ITS ---
The [address] [address] Patient Name: ALMA HARRY MRN: [id number] date: 1960 Sex: M Assigned Patient Location: ER Current Patient Location: ER Accession/Order Number: [id number] Exam Date: 01/25/2023 12:45 Report Date: 01/25/2023 13:24 At the request of: TREVER RUSSELL Procedure: XR abdomen min 2V EXAMINATION: XR abdomen min 2V, 01/25/2023 12:45 PM EDT HISTORY: flat and erect, pain out of proportion COMPARISON: Relevant priors reviewed including CT 01/09/2023 TECHNIQUE: Upright and supine views of the abdomen. FINDINGS: Medical devices: None. Nonobstructive bowel gas pattern. Cholecystectomy clips project over the right upper quadrant, with several adjacent calcifications in this region as well, potentially dropped gallstones. 6 mm calcification projects over the left renal shadow relating to intrarenal nephrolithiasis. Vascular calcifications are additionally noted. No definite free intraperitoneal gas. XR/XR abdomen min 2V IMPRESSION: 1. Nonobstructive bowel gas pattern. No definite free intraperitoneal gas. 2. Procedure change from cholecystectomy. Several calcifications also project over the right upper quadrant of unclear etiology, although potentially dropped gallstones in the setting of prior cholecystectomy. 3. Left intrarenal nephrolithiasis measuring 6 mm. Electronically authenticated by: SHRADDHA MCKEON Date: 01/25/2023 13:24
[2023-01-25] MEDS: HYDROMORPHONE HCL 1 MG/ML CARTRIDGE IVP (12:48)
[2023-01-25] MEDS: ONDANSETRON PF 4 MG/2 ML VIAL IV ×2 (12:48→14:45)
--- NOTE | 2023-01-25 12:48 | ED.GENADUL1 ---
HPI - General Adult General Chief complaint: Abdominal Pain Stated complaint: ABDOMINAL PAIN Time Seen by Provider: 01/25/23 12:38 History of Present Illness HPI narrative: Patient is a 62-year-old male who is presenting to the Emergency Room with chief complaint of acute onset of exam like abdominal pain across abdomen after he was done walking with his . Patient was a couple 100 yards away from home, and he had acute onset of abdominal pain across his abdomen. Patient stated that on January 10, he had surgery with Dr. Sanon for a gallbladder that was removed. Patient stated that he had necrosis and his abdomen as well that was cleaned up by Dr. Sanon. patient states he's been having normal bowel movements in the last week. Patient saw Dr. Sanon in the office last week with a follow-up, checkup, no acute concerns. Patient's also having sensitivity around his left nipple, patient's had no fall or trauma. Patient has no fever or chills. No headache. Patient has nausea no vomiting. No diarrhea. Patient is brought to the Emergency Room by his . Patient had called office and he was directed to come to the Emergency Room. Patient has multiple other comorbidities, including chronic obstructive pulmonary disease. I was called into the room by Anabel CONTRERAS, secondary to mild to moderate distress secondary to pain. Patient was riding the bed, patient is clammy not diaphoretic. Patient looks uncomfortable. Patient had increased respiratory rate secondary to pain most likely. All systems are negative except as noted/marked. All systems reviewed and otherwise negative. . Nurses note and vital signs reviewed and patient is not hypoxic. General: The patient appears mild to moderate distress secondary to pain, Patient is resting uncomfortably on cart. patient is intermittently rubbing the bed, Patient is not toxic, lethargic, or listless Skin: Warm, dry, no pallor noted. There is no rash noted. No petechiae, purpura. Head: Normocephalic, atraumatic Eye: Normal conjunctiva, no drainage, EOMI. PERRL Ears, Nose, Mouth, and Throat: oral mucosa is moist. Nares patent. Mouth without vesicles. Cardiovascular: Regular Rate and Rhythm, no murmur, gallop, rub. patient has no noted discharge coming from his left nipple, I palpated around area like, around his left breast, there is no crepitus, no palpable hematoma, no ecchymosis, no skin changes. It is however moderately sensitive to light palpation for unknown reasons/etiology. Patient does not have any pain to palpation to the right breast. Respiratory: Patient is in no distress, no accessory muscle use, lungs are clear to auscultation, no wheezing, rales or rhonchi Back: non-tender, no CVA tenderness bilaterally to percussion. No CT LS midline pain GI: soft, obese,mild distention, mild rigidity/tympany, mild to moderate guarding. Umbilical, no flank pain bilateral, positive peritoneal signs, no right upper quadrant, midepigastric or left upper quadrant tenderness palpation, hypoactive bowel sounds, no rash or ecchymosis, palpable hernia or pulsatile mass across his abdomen; no masses appreciated. No rebound, guarding, or rigidity noted. No flank pain bilateral, No distention Musculoskeletal: Patient has full range of motion of all of the extremities, no motor, sensory, or focal neurological deficits Neurological: A&O x3, normal speech Psychiatric: Cooperative Related Data Home Medications Medication Instructions Recorded Confirmed albuterol sulfate 90 mcg/actuation 2 puff inhalation Q6H PRN 01/09/23 01/09/23 aerosol inhaler (ProAir HFA) shortness of breath or wheezing atorvastatin 80 mg tablet 80 mg PO DAILY 01/09/23 01/09/23 budesonide-formoterol HFA 160 2 inh inhalation BID 01/09/23 01/09/23 mcg-4.5 mcg/actuation aerosol inhaler (Symbicort) cholecalciferol (vitamin D3) 125 5,000 unit PO DAILY 01/09/23 01/09/23 mcg (5,000 unit) tablet (Vitamin D3) clopidogrel 75 mg tablet 75 mg PO DAILY 01/09/23 01/09/23 losartan 50 mg tablet 50 mg PO DAILY 01/09/23 01/09/23 metoprolol succinate 50 mg 50 mg PO DAILY 01/09/23 01/09/23 tablet,extended release 24 hr nitroglycerin 0.4 mg sublingual 0.4 mg sublingual .q5 PRN chest 01/09/23 01/09/23 tablet pain revefenacin 175 mcg/3 mL solution 175 mcg inhalation DAILY 01/09/23 01/09/23 for nebulization (Yupelri) spironolactone 50 mg tablet 50 mg PO DAILY 01/09/23 01/09/23 Previous Rx's Medication Instructions Recorded hyoscyamine sulfate 0.125 mg 0.125 mg PO Q6H PRN abdominal pain 01/07/23 sublingual tablet (Levsin/SL) #20 tabs ondansetron 4 mg disintegrating 4 mg PO Q6H PRN nausea and 01/07/23 tablet vomiting #20 tabs peg 3350-electrolytes 236 200 ml PO .q20min #2,000 mL 01/07/23 gram-22.74 gram-6.74 gram-5.86 gram solution (Golytely) Allergies Allergy/AdvReac Type Severity Reaction Status Date / Time No Known Drug Allergies Allergy Verified 01/06/23 22:43 [facility] Medical History (Updated 01/25/23 @ 14:50 by Amadou Torres MD) Surgical History (Updated 01/09/23 @ 04:32 by Narendra Duenas) Family History (Updated 01/09/23 @ 04:37 by Narendra Duenas) Uncle Family history of COPD (chronic obstructive pulmonary disease) Grandmother Family history of cancer Brother Family history of diabetes mellitus Father Family history of myocardial infarction Social History (Updated 01/09/23 @ 04:37 by Narendra Duenas) Within the past year, how often did you have a drink containing alcohol: monthly or less Within the past year, how many standard drinks containing alcohol did you have on a typical day: 1 or 2 Within the past year, how often did you have six or more drinks on one occasion: never Total score: 0 Score interpretation: A score less than 4 is consistent with normal alcohol consumption. 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 Known occupational exposures/hazards: No Highest level of school completed/degree received: 12th grade, no diploma Are you now , , , , never or living with a partner: Little interest or pleasure in doing things: not at all Feeling down, depressed, or hopeless: not at all Feel stressed/tense/nervous/anxious/difficulty sleeping: not at all Life stressors: other Life stressor details: Cancer Due to disability, difficulty making decisions: No Do you think of yourself as: straight/heterosexual Gender Identity: male Exam Constitutional Vital Signs, click to edit/add: Last Vital Signs Temp 97.9 F 01/25/23 12:19 Pulse 82 01/25/23 15:15 Resp 17 01/25/23 15:15 BP 127/86 01/25/23 15:15 Pulse Ox 99 01/25/23 15:15 O2 Del Method Room Air 01/25/23 12:19 Course Vital Signs Vital signs: Vital Signs Temperature 97.9 F 01/25/23 12:19 Pulse Rate 98 H 01/25/23 12:19 Respiratory Rate 20 01/25/23 12:19 Blood Pressure 144/87 H 01/25/23 12:19 Pulse Oximetry 98 01/25/23 12:19 Oxygen Delivery Method Room Air 01/25/23 12:19 Temperature 97.9 F 01/25/23 12:19 Pulse Rate 82 01/25/23 15:15 Respiratory Rate 17 01/25/23 15:15 Blood Pressure 127/86 01/25/23 15:15 Pulse Oximetry 99 01/25/23 15:15 Oxygen Delivery Method Room Air 01/25/23 12:19 Medical Decision Making MDM Narrative Medical decision making narrative: patient had laboratory done, stat x-ray to rule out any obvious distention, obstruction or acute abnormality noted by doing a stat x-ray and flat and erect of his abdomen. Patient had CTA ordered of his chest, abdomen and pelvis secondary to pain above and below the diaphragm with left breast, and periumbilical pain with peritoneal signs. After approximately 15 minutes the patient's arrival, I did speak to about patient's presentation, exam, pain out of proportion, peritoneal signs, and the workup we are pursuing. Dr Sanon was going to the office across the street from the hospital, he will follow up with the lab work, x-ray and CAT scan as well while he is in office hours. No other acute recommendations initially. XR was visualized by myself after was done, no obvious signs of obstruction, air-fluid levels, or acute abnormality.patient has feces filled colon, minimal gas pattern. Approx 145pm, I spoke to Dr. Sanon again concerning patient's lab work, x-ray finding, CTA reports. Dr Sanon believes there could possibly be a stone in the common bile ducts, does not believe there is a biliary leak secondary to normal bilirubin, and 15 days postop. 1433 I have spoken to the hospitalist Dr Bonilla, she accepts admission. She is recommending lactic acid and LFTs be repeated after IV fluids. She is aware of Dr. Sanon recommendations of gastrointestinal consultation, possible ERCP and further evaluation. They currently have no beds at [facility], patient will be a Emergency Room hold, Dr Bonilla. we will currently call local ground transportation to have patient transferred. 1600 Dr Sanon cane to the Emergency Room to see and evaluate the patient and talked to the patient and his . Patient has finished his 2 L of lactated ringer's, lab work has been repeated on LFTs and lactate. The results will be called back to Dr. Bonilla and transfer Center when they return. patient pain is returning after the ketamine drip has finished, he'll be given another 1 mg of Dilaudid prior to discharge. Lab Data Lab results reviewed: Yes I reviewed the patient's lab results Labs: Lab Results 01/25/23 01/25/23 Range/Units 12:31 12:45 WBC 8.6 (4.0-11.0) 10^3/uL RBC 3.60 L (4.70-6.10) 10^6/uL Hgb 11.0 L (14.0-18.0) g/dL Hct 32.2 L (42.0-54.0) % MCV 89.4 (80.0-94.0) fL MCH 30.6 (25.9-34.0) pg MCHC 34.2 (29.9-35.2) g/dL RDW 13.5 (11.0-15.0) % Plt Count 340 (150-450) 10^3/uL MPV 10.6 (9.5-13.5) fL Neut % (Auto) 74.0 (43.0-75.0) % Lymph % (Auto) 14.4 L (20.5-60.0) % [place] % (Auto) 5.1 (1.7-12.0) % Eos % (Auto) 4.8 (0.9-7.0) % Baso % (Auto) 0.9 (0.2-2.0) % Neut # (Auto) 6.4 (1.4-6.5) 10^3/uL Lymph # (Auto) 1.2 (1.2-3.8) 10^3/uL [place] # (Auto) 0.4 (0.3-0.8) 10^3/uL Eos # (Auto) 0.4 (0.0-0.7) 10^3/uL Baso # (Auto) 0.1 (0.0-0.1) 10^3/uL Abs Immat Gran (auto) 0.07 H (0.00-0.03) 10^3/uL Imm/Tot Granulo (auto) 0.8 H (0.0-0.5) % Sodium 139 (136-145) mmol/L Potassium 3.8 (3.5-5.1) mmol/L Chloride 102 (98-107) mmol/L Carbon Dioxide 24.5 (21.0-32.0) mmol/L Anion Gap 16.3 BUN 16.0 (7.0-18.0) mg/dL Creatinine 1.06 (0.70-1.30) mg/dL Est GFR ( Amer) >60 (>=60) Est GFR (Non-Af Amer) >60 (>=60) BUN/Creatinine Ratio 15.1 Glucose 110 H (74-106) mg/dL Lactate 2.2 H* (0.4-2.0) mmol/L Calcium 9.3 (8.5-10.1) mg/dL Total Bilirubin 0.9 (0.2-1.0) mg/dL Direct Bilirubin 0.2 (0.0-0.2) mg/dL AST 129 H (15-37) U/L ALT 67 H (16-63) U/L Alkaline Phosphatase 161 H (46-116) U/L Troponin I High Sens 5.5 (4.0-76.1) pg/mL Total Protein 7.2 (6.4-8.2) g/dL Albumin 3.6 (3.4-5.0) g/dL Globulin 3.6 g/dL Albumin/Globulin Ratio 1.0 Lipase 95.0 (73.0-393.0) U/L repeat LFTs and lactate are pending. ECG Data Attestation: I personally reviewed and interpreted this ECG as follows: (EKG interpretation. Normal sinus rhythm at 94 beats a minute. Normal axis deviation. No acute ST elevation, no acute ectopy. QTC of 400. Q waves noted throughout. Artifact.) Discharge Plan Discharge Chief Complaint: Abdominal Pain Clinical Impression: Intractable abdominal pain, Elevated LFTs, Abdominal pain, Nausea Patient Disposition: [facility] Time of Disposition Decision: 14:47 Discharge Location: [facility] [address] Discharge location: [facility] Condition: Serious
[2023-01-25] MEDS: 0.9 % SODIUM CHLORIDE 1,000 ML 999 ML IV (12:56)
[2023-01-25 13:09] LABS: Lactate/Lactic Acid 2.2 mmol/L (0.4-2.0)
[2023-01-25 13:10] LABS: Basophils Absolute Auto 0.1 10^3/uL (0.0-0.1); Basophils Percent Auto 0.9 % (0.2-2.0); Eosinophils Absolute Auto 0.4 10^3/uL (0.0-0.7); Eosinophils Percent Auto 4.8 % (0.9-7.0); Hematocrit 32.2 % (42.0-54.0); Immature Granulocytes Abs Auto 0.07 10^3/uL (0.00-0.03); Immature Granulocytes Pct Auto 0.8 % (0.0-0.5); Lymphocytes Absolute Auto 1.2 10^3/uL (1.2-3.8); Lymphocytes Percent Auto 14.4 % (20.5-60.0); Mean Corpuscular HGB Conc 34.2 g/dL (29.9-35.2); Mean Corpuscular Hemoglobin 30.6 pg (25.9-34.0); Mean Corpuscular Volume 89.4 fL (80.0-94.0); Mean Platelet Volume 10.6 fL (9.5-13.5); Monocytes Absolute Auto 0.4 10^3/uL (0.3-0.8); Monocytes Percent Auto 5.1 % (1.7-12.0); Neutrophils Absolute Auto 6.4 10^3/uL (1.4-6.5); Platelet Count 340 10^3/uL (150-450); Red Cell Distribution Width 13.5 % (11.0-15.0); White Blood Count 8.6 10^3/uL (4.0-11.0)
--- NOTE | 2023-01-25 13:10 | CT_ITS ---
[address] [address] Patient Name: ALMA HARRY MRN: [id number] date: 1960 Sex: M Assigned Patient Location: ER Current Patient Location: Accession/Order Number: [id number] Exam Date: 01/25/2023 12:55 Report Date: 01/25/2023 13:37 At the request of: TREVER RUSSELL Procedure: CT angio abdomen pelvis EXAM: CT angio chest, CT angio abdomen pelvis HISTORY: abd pain COMPARISON: 01/09/2023 TECHNIQUE: Postcontrast images were obtained of the chest, abdomen and pelvis in the arterial phase. 3-D and multiplanar reconstructions were performed. CTA CHEST FINDINGS: Lungs/Pleura: The lungs are clear. There is a calcified pulmonary nodule in the right lung base, likely due to remote granulomatous disease. No pleural effusion or pneumothorax. Cardiovascular: The heart is normal in size. Mild coronary artery calcifications are present. No aortic dissection or aneurysm. Mild scattered atherosclerotic calcifications are present. No pulmonary embolus. Pericardium: No effusion. Mediastinum: Unremarkable. Lymph Nodes: No lymph node enlargement by CT size criteria. Bones: No acute osseous abnormality. Soft tissues: Unremarkable. CTA ABDOMEN/PELVIS FINDINGS: Liver: Normal enhancement and contour. Biliary/Gallbladder: Recent interval cholecystectomy with an irregular fluid collection present in the gallbladder fossa region measuring approximately 6.3 x 2.9 cm. A few gallstones are noted within the fluid collection. There is mild hazy fat stranding in the adjacent mesentery. Pancreas: Unremarkable. Spleen: Unremarkable. Adrenal Glands: Unremarkable. Kidneys: Nonobstructive renal calculi are present bilaterally. Gastrointestinal/Peritoneum: No acute abnormality. Mild colonic diverticulosis is present. No free air or free fluid. Vascular: No aortic dissection or aneurysm identified. Mild scattered atherosclerotic calcifications are present. Lymph Nodes: No enlarged lymph nodes by CT size criteria. Pelvic Organs: Unremarkable. Bladder: Unremarkable. Bones: No acute osseous abnormality. Soft tissues: Multifocal sites of hazy fat stranding at the anterior abdominal wall, likely due to postoperative change. There is a small fat-containing right inguinal hernia. IMPRESSION CTA CHEST: 1. No aortic dissection or acute vascular abnormality. IMPRESSION CTA ABDOMEN/PELVIS: 1. No aortic dissection or acute vascular abnormality. 2. Recent cholecystectomy with an irregular fluid collection in the gallbladder fossa region with mild surrounding inflammatory changes, possibly representing a postoperative seroma, abscess or bile leak. 3. Recent postoperative changes present at the anterior abdominal wall. 4. Mild colonic diverticulosis. 5. Nephrolithiasis. Electronically authenticated by: SHLOMO MOTA Date: 01/25/2023 13:37
--- NOTE | 2023-01-25 13:10 | CT_ITS ---
[address] [address] Patient Name: ALMA HARRY MRN: [id number] date: 1960 Sex: M Assigned Patient Location: ER Current Patient Location: ER Accession/Order Number: [id number] Exam Date: 01/25/2023 12:55 Report Date: 01/25/2023 13:37 At the request of: TREVER RUSSELL Procedure: CT angio chest EXAM: CT angio chest, CT angio abdomen pelvis HISTORY: abd pain COMPARISON: 01/09/2023 TECHNIQUE: Postcontrast images were obtained of the chest, abdomen and pelvis in the arterial phase. 3-D and multiplanar reconstructions were performed. CTA CHEST FINDINGS: Lungs/Pleura: The lungs are clear. There is a calcified pulmonary nodule in the right lung base, likely due to remote granulomatous disease. No pleural effusion or pneumothorax. Cardiovascular: The heart is normal in size. Mild coronary artery calcifications are present. No aortic dissection or aneurysm. Mild scattered atherosclerotic calcifications are present. No pulmonary embolus. Pericardium: No effusion. Mediastinum: Unremarkable. Lymph Nodes: No lymph node enlargement by CT size criteria. Bones: No acute osseous abnormality. Soft tissues: Unremarkable. CTA ABDOMEN/PELVIS FINDINGS: Liver: Normal enhancement and contour. Biliary/Gallbladder: Recent interval cholecystectomy with an irregular fluid collection present in the gallbladder fossa region measuring approximately 6.3 x 2.9 cm. A few gallstones are noted within the fluid collection. There is mild hazy fat stranding in the adjacent mesentery. Pancreas: Unremarkable. Spleen: Unremarkable. Adrenal Glands: Unremarkable. Kidneys: Nonobstructive renal calculi are present bilaterally. Gastrointestinal/Peritoneum: No acute abnormality. Mild colonic diverticulosis is present. No free air or free fluid. Vascular: No aortic dissection or aneurysm identified. Mild scattered atherosclerotic calcifications are present. Lymph Nodes: No enlarged lymph nodes by CT size criteria. Pelvic Organs: Unremarkable. Bladder: Unremarkable. Bones: No acute osseous abnormality. Soft tissues: Multifocal sites of hazy fat stranding at the anterior abdominal wall, likely due to postoperative change. There is a small fat-containing right inguinal hernia. IMPRESSION CTA CHEST: 1. No aortic dissection or acute vascular abnormality. IMPRESSION CTA ABDOMEN/PELVIS: 1. No aortic dissection or acute vascular abnormality. 2. Recent cholecystectomy with an irregular fluid collection in the gallbladder fossa region with mild surrounding inflammatory changes, possibly representing a postoperative seroma, abscess or bile leak. 3. Recent postoperative changes present at the anterior abdominal wall. 4. Mild colonic diverticulosis. 5. Nephrolithiasis. Electronically authenticated by: SHLOMO MOTA Date: 01/25/2023 13:37
[2023-01-25 13:13] LABS: Alanine Aminotransferase 67 U/L (16-63); Albumin Level 3.6 g/dL (3.4-5.0); Alkaline Phosphatase 161 U/L (46-116); Anion Gap 16.3; Aspartate Amino Transferase 129 U/L (15-37); BUN Creatinine Ratio 15.1; Bilirubin Direct 0.2 mg/dL (0.0-0.2); Bilirubin Total 0.9 mg/dL (0.2-1.0); Calcium 9.3 mg/dL (8.5-10.1); Carbon Dioxide 24.5 mmol/L (21.0-32.0); Chloride 102 mmol/L (98-107); Estimated GFR (African America >60 (>=60); Estimated GFR (Non-African Ame >60 (>=60); Globulin 3.6 g/dL; Glucose 110 mg/dL (74-106); Potassium 3.8 mmol/L (3.5-5.1); Sodium 139 mmol/L (136-145); Total Protein 7.2 g/dL (6.4-8.2); Troponin I High Sensitivity 5.5 pg/mL (4.0-76.1)
[2023-01-25] MEDS: LORAZEPAM 2 MG/ML 1 ML VIAL 1 MG IV (13:53)
[2023-01-25] MEDS: KETOROLAC TROMETHAMINE 30 MG/ML VIAL 15 MG IVP (14:12)
[2023-01-25] MEDS: DICYCLOMINE HCL 20 MG/2 ML VIAL IM (14:13)
[2023-01-25] MEDS: LACTATED RINGER'S SOLUTION 1,000 ML 150 ML IV (14:33)
--- NOTE | 2023-01-25 14:38 | ECG_ITS ---
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
[2023-01-25] MEDS: LACTATED RINGER'S SOLUTION 1,000 ML 1000 ML IV (14:45)
[2023-01-25 16:31] LABS: Alanine Aminotransferase 112 U/L (16-63); Albumin Level 3.2 g/dL (3.4-5.0); Alkaline Phosphatase 223 U/L (46-116); Aspartate Amino Transferase 206 U/L (15-37); Bilirubin Direct 0.5 mg/dL (0.0-0.2); Bilirubin Total 1.1 mg/dL (0.2-1.0); Globulin 3.2 g/dL; Total Protein 6.4 g/dL (6.4-8.2)
[2023-01-25] MEDS: HYDROMORPHONE HCL 2 MG/ML VIAL 1 MG IV (16:37)
== END 2023-01-25 16:39 | disposition short-term general hospital (02) ==
PROVIDERS: Emergency Provider Emergency Medicine; PCP Family Medicine
DX: R10.9 Unspecified abdominal pain (principal); R79.89 Other specified abnormal findings of blood chemistry; R11.0 Nausea; Z90.49 Acquired absence of other specified parts of digestive tract; Z79.899 Other long term (current) drug therapy; Z87.891 Personal history of nicotine dependence
CPT/HCPCS: 36415; 71275; 74019; 74174; 80053; 80076; 83605; 83690; 84484; 85025; 93005; 96365; 96372; 96375; 96376; 99285; J0500; J1170; Q9967

== ENCOUNTER 2023-07-21 06:31 | Outpatient (OUT) | payer OTHER, MEDICARE, SELFPAY ==
--- NOTE | 2023-07-21 06:45 | CT_ITS ---
The [address] [address] Patient Name: ALMA HARRY MRN: [id number] date: 1960 Sex: M Assigned Patient Location: LAB Current Patient Location: LAB Accession/Order Number: [id number] Exam Date: 07/21/2023 08:00 Report Date: 07/21/2023 08:52 At the request of: CASSY CEBALLOS Procedure: CT abdomen pelvis w con EXAM: CT abdomen pelvis w con HISTORY: Epigastric Pain, Incisional Hernia COMPARISON: CT abdomen and pelvis 01/06/2023.. TECHNIQUE: Following intravenous administration of 98 mL of Omnipaque 350, axial soft tissue windows of the abdomen and pelvis were performed with coronal and sagittal reformats. Findings: Benign calcified right lower lobe granuloma. ABDOMEN: The liver, spleen, pancreas, and adrenal glands are unremarkable. The gallbladder is surgically absent. Mild nonspecific bilateral perinephric fat stranding. There are nonobstructing bilateral renal stones. The largest is within the lower pole of the left kidney measuring approximately 0.6 cm. The bilateral ureters are nondilated. There are colonic diverticula. Small ventral hernia containing a portion of small bowel. No bowel obstruction. The appendix is nondilated. The aorta is normal caliber. Mild atherosclerotic disease. No enlarged abdominal lymph nodes or free abdominal fluid. Pelvis: Unremarkable bladder. The prostate is nonenlarged. No enlarged pelvic lymph nodes or free pelvic fluid. No aggressive sclerotic or lytic osseous lesions. Mild multilevel degenerative spondylosis. CT/CT abdomen pelvis w con IMPRESSION: 1. Nonobstructing bilateral renal stones. 2. Diverticulosis. 3. Small ventral hernia containing a portion of small bowel. No bowel obstruction. Electronically authenticated by: KIRSTIN SCHULER Date: 07/21/2023 08:52
[2023-07-21 06:48] LABS: Estimated GFR (African America >60 (>=60); Estimated GFR (Non-African Ame >60 (>=60)
== END 2023-07-21 06:32 | disposition home or self-care (01) ==
LOC: LAB 06:32
PROVIDERS: PCP Family Medicine; Visit Provider Surgery
DX: R10.13 Epigastric pain (principal); K43.2 Incisional hernia without obstruction or gangrene; K57.30 Diverticulosis of large intestine without perforation or abscess without bleeding
CPT/HCPCS: 36415; 74177; 82565; Q9967

== ENCOUNTER 2023-09-01 09:25 | Outpatient (OUT) | payer OTHER, MEDICARE, SELFPAY ==
--- NOTE | 2023-09-01 09:41 | ECG_ITS ---
The 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
--- NOTE | 2023-09-01 09:42 | XR_ITS ---
The [address] [address] Patient Name: ALMA HARRY MRN: [id number] date: 1960 Sex: M Assigned Patient Location: [facility] Current Patient Location: [facility] Accession/Order Number: [id number] Exam Date: 09/01/2023 10:30 Report Date: 09/01/2023 12:25 At the request of: CASSY CEBALLOS Procedure: XR chest 2V EXAMINATION: XR chest 2V HISTORY: Preop exam COMPARISON: 01/08/2023 TECHNIQUE: PA and lateral FINDINGS: LUNGS: No significant pulmonary parenchymal abnormalities. VASCULATURE: No increased pulmonary vasculature. PLEURA: No pneumothorax, effusion, or pleural thickening. CARDIAC: No cardiomegaly or cardiac silhouette abnormality. MEDIASTINUM: No visible mass or adenopathy. BONES: No fracture or visible bone lesion. OTHER: Negative. XR/XR chest 2V IMPRESSION: No acute cardiopulmonary process Electronically authenticated by: RYLAN RESENDEZ Date: 09/01/2023 12:25
--- NOTE | 2023-09-01 10:32 | PM.PRESUREVA ---
History of Present Illness History of Present Illness Chief complaint: ventral incisional hernia Narrative: Patient presents for preadmission testing. The patient states he's had an abdominal hernia for many months and the pain has worsened with his chronic cough due to chronic obstructive pulmonary disease. He denies fever, nausea, vomiting, constipation, diarrhea, or any other complaints. Review of Systems ROS Narrative REVIEW OF SYSTEMS: Negative except as stated in HPI, ten or more systems reviewed. Constitutional: No fever , chills, weakness ENT: No sore throat or epistaxis Cardiovascular: No edema, chest pain, palpitations, or activity intolerance Respiratory: Chronic shortness of breath, cough, and wheezing Musculoskeletal: No joint pain or swelling Genitourinary: No dysuria or hematuria Neurological: No numbness, tingling, weakness, or headache Psychiatric: No mood changes PFSH [facility] Medical History (Updated 09/01/23 @ 10:16 by Azul Thompson NP) Irregular heart beat ?I49.9 - Cardiac arrhythmia, unspecified (ICD-10) Ventral incisional hernia ?K43.2 - Incisional hernia without obstruction or gangrene (ICD-10) Cardiomegaly ?I51.7 - Cardiomegaly (ICD-10) Skin cancer ?C44.90 - Unspecified malignant neoplasm of skin, unspecified (ICD-10) COPD (chronic obstructive pulmonary disease) ?J44.9 - Chronic obstructive pulmonary disease, unspecified (ICD-10) CVA (cerebral vascular accident) (2019) ?I63.9 - Cerebral infarction, unspecified (ICD-10) Hyperlipidemia ?E78.5 - Hyperlipidemia, unspecified (ICD-10) Hypertension ?I10 - Essential (primary) hypertension (ICD-10) ASHD (arteriosclerotic heart disease) ?I25.10 - Atherosclerotic heart disease of [place] coronary artery without angina pectoris (ICD-10) Cancer ?C80.1 - Malignant (primary) neoplasm, unspecified (ICD-10) Acute cholecystitis ?K81.0 - Acute cholecystitis (ICD-10) Abdominal pain ?R10.9 - Unspecified abdominal pain (ICD-10) Gallstones ?K80.20 - Calculus of gallbladder without cholecystitis without obstruction (ICD-10) Surgical History (Updated 09/01/23 @ 10:04 by Azul Thompson NP) Hx of tonsillectomy ?Z90.89 - Acquired absence of other organs (ICD-10) History of hernia repair ?Z98.890 - Other specified postprocedural states (ICD-10) ?Z87.19 - Personal history of other diseases of the digestive system (ICD-10) H/O foot surgery ?Z98.890 - Other specified postprocedural states (ICD-10) H/O laparoscopy ?Z98.890 - Other specified postprocedural states (ICD-10) H/O colonoscopy ?Z98.890 - Other specified postprocedural states (ICD-10) History of cholecystectomy ?Z90.49 - Acquired absence of other specified parts of digestive tract (ICD-10) History of cardiac catheterization ?Z98.890 - Other specified postprocedural states (ICD-10) Status post surgical removal of malignant neoplasm of skin ?Z98.890 - Other specified postprocedural states (ICD-10) Family History (Updated 01/09/23 @ 04:37 by Narendra Duenas RN) Uncle Family history of COPD (chronic obstructive pulmonary disease) Grandmother Family history of cancer Brother Family history of diabetes mellitus Father Family history of myocardial infarction Social History (Updated 01/09/23 @ 04:37 by Narendra Duenas RN) Within the past year, how often did you have a drink containing alcohol: monthly or less Within the past year, how many standard drinks containing alcohol did you have on a typical day: 1 or 2 Within the past year, how often did you have six or more drinks on one occasion: never Total score: 0 Score interpretation: A score less than 4 is consistent with normal alcohol consumption. 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 Known occupational exposures/hazards: No Highest level of school completed/degree received: 12th grade, no diploma Are you now , , , , never or living with a partner: Little interest or pleasure in doing things: not at all Feeling down, depressed, or hopeless: not at all Feel stressed/tense/nervous/anxious/difficulty sleeping: not at all Life stressors: other Life stressor details: Cancer Due to disability, difficulty making decisions: No Do you think of yourself as: straight/heterosexual Gender Identity: male Meds Home Medications and Allergies Home Medications ?Medication ?Instructions ?Recorded ?Confirmed ?Type albuterol sulfate 90 mcg/actuation 2 puff inhalation Q6H PRN 01/09/23 09/01/23 History aerosol inhaler (ProAir HFA) shortness of breath or wheezing atorvastatin 80 mg tablet 80 mg PO DAILY 01/09/23 09/01/23 History cholecalciferol (vitamin D3) 125 5,000 unit PO DAILY 01/09/23 09/01/23 History mcg (5,000 unit) tablet (Vitamin D3) clopidogrel 75 mg tablet 75 mg PO DAILY 01/09/23 09/01/23 History losartan 50 mg tablet 50 mg PO DAILY 01/09/23 09/01/23 History metoprolol succinate 50 mg 50 mg PO DAILY 01/09/23 09/01/23 History tablet,extended release 24 hr nitroglycerin 0.4 mg sublingual 0.4 mg sublingual .q5 PRN chest 01/09/23 09/01/23 History tablet pain revefenacin 175 mcg/3 mL solution 175 mcg inhalation DAILY 01/09/23 09/01/23 History for nebulization (Paxtoni) spironolactone 50 mg tablet 50 mg PO DAILY 01/09/23 09/01/23 History albuterol sulfate 2.5 mg/3 mL 2.5 mg inhalation TID-QID PRN 09/01/23 09/01/23 History (0.083 %) solution for nebulization shortness of breath or wheezing fluticasone 250 mcg-salmeterol 50 1 inh inhalation BID 09/01/23 09/01/23 History mcg/dose blistr powdr for inhalation (Wixela Inhub) Allergies Allergy/AdvReac Type Severity Reaction Status Date / Time adhesive tape Allergy skin damage Verified 09/01/23 10:10 Exam Narrative Exam Narrative: Constitutional: Awake, alert, comfortable, well-appearing, nontoxic, interactive, vital signs as charted Head: Normocephalic, atraumatic Neck: Supple, normal appearance, normal range of motion, no meningeal signs, no lymphadenopathy Respiratory: No respiratory distress, breath sounds clear Cardiovascular: Regular rate and rhythm, strong and regular heart tones Abdomen: Tender supraumbilical hernia, normal bowel sounds, soft, no CVA tenderness Musculoskeletal: Normal gait, no swelling or edema Skin: No rashes or induration, no lesions, only visible skin inspected Neuro: No neurological deficits, normal sensation Psychiatric: Oriented ?3, normal affect Assessment and Plan Assessment and Plan (1) Ventral incisional hernia: Plan Robot assisted incisional hernia repair with mesh scheduled with Dr. Sanon 09/14/2023.
[2023-09-01 11:06] LABS: INR 0.94; Partial Thromboplastin Time 27.9 sec (22.3-36.2)
[2023-09-01 11:08] LABS: Basophils Percent Auto 0.5 % (0.2-2.0); Eosinophils Absolute Auto 0.2 10^3/uL (0.0-0.7); Eosinophils Percent Auto 2.4 % (0.9-7.0); Hematocrit 37.8 % (42.0-54.0); Hemoglobin 12.5 g/dL (14.0-18.0); Immature Granulocytes Abs Auto 0.03 10^3/uL (0.00-0.03); Immature Granulocytes Pct Auto 0.3 % (0.0-0.5); Lymphocytes Percent Auto 11.5 % (20.5-60.0); Mean Corpuscular HGB Conc 33.1 g/dL (29.9-35.2); Mean Corpuscular Hemoglobin 30.3 pg (25.9-34.0); Mean Corpuscular Volume 91.7 fL (80.0-94.0); Mean Platelet Volume 10.8 fL (9.5-13.5); Monocytes Absolute Auto 0.5 10^3/uL (0.3-0.8); Monocytes Percent Auto 5.7 % (1.7-12.0); Neutrophils Percent Auto 79.6 % (43.0-75.0); Platelet Count 222 10^3/uL (150-450); Red Blood Count 4.12 10^6/uL (4.70-6.10); Red Cell Distribution Width 12.7 % (11.0-15.0); White Blood Count 8.8 10^3/uL (4.0-11.0)
[2023-09-01 11:09] LABS: Anion Gap 14.3; BUN Creatinine Ratio 14.5; Calcium 9.6 mg/dL (8.5-10.1); Carbon Dioxide 25.1 mmol/L (21.0-32.0); Chloride 102 mmol/L (98-107); Estimated GFR (African America >60 (>=60); Estimated GFR (Non-African Ame >60 (>=60); Glucose 104 mg/dL (74-106); Potassium 3.4 mmol/L (3.5-5.1); Sodium 138 mmol/L (136-145)
== END 2023-09-01 09:26 | disposition home or self-care (01) ==
PROVIDERS: PCP Family Medicine; Visit Provider Surgery
DX: Z01.810 Encounter for preprocedural cardiovascular examination (principal); Z01.812 Encounter for preprocedural laboratory examination; Z01.818 Encounter for other preprocedural examination; K43.2 Incisional hernia without obstruction or gangrene
CPT/HCPCS: 71046; 80048; 85025; 85610; 85730; 93005; G0463

== ENCOUNTER 2023-09-14 06:13 | Day surgery (SDC) | payer OTHER, MEDICARE, SELFPAY ==
[2023-09-01 10:27] VITALS: BP 124/78; PULSE 83; TEMP 36.4; O2SAT 97; BMI 36.6
[2023-09-14] VITALS (21 sets, daily range): BP systolic 105–128; BP diastolic 58–83; PULSE 65–91; TEMP 36.2–36.5; O2SAT 78–99; BMI 36.6
--- NOTE | 2023-09-14 | OP_ITS ---
OPERATION DATE: 09/14/2023 PREOPERATIVE DIAGNOSIS: Incisional ventral hernia with incarcerated small bowel. POSTOPERATIVE DIAGNOSIS: Incisional ventral hernia with incarcerated small bowel. PROCEDURE: Robotic assisted incisional herniorrhaphy with 9 x 7 cm Symbotex mesh insertion. Facial defect was 2.5 cm. SURGEON: Marbin Sanon M.D. ANESTHESIA: General with laryngeal mask airway, as well as bilateral rectus sheath blocks per Dr. Le. INDICATIONS AND CONSENT: Patient is a 64-year-old male with a history of enlarging, symptomatic incisional hernia in the supraumbilical port site, after laparoscopic cholecystectomy. CT scan revealed evidence of a loop of incarcerated small bowel without obstruction. Indications, risks, benefits, alternatives of proceeding with robotic assisted herniorrhaphy with mesh insertion was explained extensively to the patient, including the risks of bleeding, infection, scarring, pain, bowel injury, recurrent hernia, blood clot, pulmonary embolus, heart attack, anesthetic complications, need for further surgery or mesh removal. All of his questions were answered. Informed consent was obtained. PROCEDURE: Patient brought to the operating room, placed in the supine position. General anesthesia was induced. Bilateral rectus sheath blocks were performed by Dr. Le. Patient was prepped and draped in the usual sterile fashion. A Jaimes catheter had been inserted prior to prepping, using sterile technique. A right subcostal port site incision was made with the scalpel blade and carried down through subcutaneous tissue using blunt dissection. Fascia was grasped and incised. Two 0 Vicryl stay sutures were placed on either side of the midline fascia. Lili trocar was then inserted and secured using the stay sutures. The abdomen was then insufflated with carbon dioxide to a pressure of 15 mm/Hg. The scope was inserted and the abdomen was visualized. The hernia was noted with an incarcerated loop of small bowel without obstruction. Two 8 mm ports were then placed laterally in the right abdomen; one in the mid abdomen, one in the right lower quadrant, both under direct visualization. A #1 non-absorbable V-Loc suture was then placed in the upper abdomen in the falciform ligament, to be used for fascial closure. The robot was then docked. The hernia sac was targeted. The bipolar graspers placed in the #2 arm, and the monopolar scissors in the #4 arm. I then broke scrub and went to the console. The small bowel loop which was densely adherent to the hernia sac was carefully freed up without injury and reduced back into the abdomen. Peritoneal flap was then begun, beginning and to the right at the midline at the edge of the rectus sheath. Preperitoneal fat and peritoneum were mobilized. There was scarring, and it was difficult to mobilize due to the previous surgery. The hernia sac could not be reduced in continuity with the peritoneum, but it was reduced through the defect. The defect was noted to be approximately 2.5 cm. Because of the poor quality of the flap and the minimal preperitoneal fat and scarring from the previous surgery, I elected to perform an I-PUMP. Once the preperitoneal fat and peritoneum had been cleared away and the peritoneum from the hernia defect, the #1 V-Loc suture was then used to close the hernia defect transversely and closed well with good hemostasis. The scissors were then brought in. The suture was cut. The needle was then brought out through the right subcostal port site. The 9 x 7 cm Symbotex mesh was then brought in through the port under direct visualization with two 2-0 absorbable V-Loc sutures. Mesh was then placed with the coated side out, covered the defect well, as well as the small umbilical defect. It was then sutured circumferentially using the 2-0 absorbable V-Loc sutures. Mesh lay well without kinking or twisting. The suture was then run along transversely across the mesh to anchor in the center portion. The scarred peritoneum from the hernia sac was excised using scissors and cautery. The edges of the remaining peritoneal flap were then sutured down to the mesh to prevent a pocket for internal hernia. This required an additional 2-0 V-Loc suture. Once this was complete, the scissors were brought in. All sutures were cut. They were then brought out under direct visualization through the Lili trocar, as well as the piece of scarred peritoneum. There was good hemostasis. There was good approximation of the mesh and peritoneal flaps. The robot was then undocked after removing the additional needle rolloff driver. I then scrubbed back in to the field and examined the repair which was intact with good hemostasis. I examined the bowel that had been removed. It was intact without bleeding or injury. All port sites were examined upon withdrawal of the ports. There was noted to be good hemostasis. The right subcostal port site fascia was then closed with a 0 Vicryl figure of eight suture. All port sites were infiltrated with the remaining Exparel solution. Skin was then closed with interrupted 4-0 subcuticular Monocryl sutures and skin glue. Sterile pressure dressings were applied, as well as a pressure dressing to the hernia site, and an abdominal binder was applied as well. Patient tolerated procedure well, was sent to recovery room in good condition. CC: Camron Donaldson
--- OUTSIDE RECORDS SUMMARY | 2023-09-14 06:17 | XMS_ITS | CCD ---
Author Organization [facility] Care Team Providers Care Crm Coordinator Name Role Phone HAMPOLE, SUKHWINDER Unavailable Unavailable POCRYLAN DICKSON Unavailable Unavailable HAMPOLE, SUKHWINDER Unavailable Unavailable HOUSE SR, NIRAV MARIA Unavailable Unavai lable HAMPOLE, SUKHWINDER Unavailable Unavailable HOUSE SR, NIRAV MARIA Unavailable Unavai lable Unavailable Unavailable Gene Munozlas Stacey Unavailable Chan Taylor Unavailable ANT, DR MCCLELLAND Primary Care Unavailable BRITTNEY, DR LORETTA Carrillo Admitting Unavailable BRITTNEY, DR LORETTA Carrillo Attending Unavailable TAYLER, JACOBY WASHINGTON Consulting Unavailable ARAMIS, EDIN Consulting Unavailable ANT, DR MCCLELLAND Admitting Unavailable ANT, DR MCCLELLAND Attending Unavailable SHARPTOWN, DR MCCLELLAND Primary Care Unavailable HOUSE, DR MCCLELLAND Admitting Unavailable HOUSE, DR MCCLELLAND Attending Unavailable HOUSE, DR MCCLELLAND Primary Care Unavailable HOUSE, DR MCCLELLAND Consulting Unavailable Nirav Cain Unavailable DO Nirav Cain Primary Care Provider [phone] MD Chan Taylor Attending Provider [phone] Ant, Dr. Nirav Maria Primary Care Unava ilREY Ames Attending Unavailable Nirav Cain Primary Care Physician Juli Goff Unavailable Unavailable Unavailable Primary Care Provider Jennifer Baca II, Dr. Rey Stevens Attending Unavailable Keven WHITFIELD, Dr. Rey Stevens Referring Unavailable Ant, Dr. Nirav Maria Primary Care Dinorava ilmargi Baca II, Dr. Rey Stevens Attending Unavailable Keven WHITFIELD, Dr. Rey Stevens Referring Unavailable Ant, Dr. Nirav Maira Primary Care Dinorava ilmargi Baca II, Dr. Rey Stevens Referring Unavailable Ant, Dr. Nirav Maria Primary Care Unava ilmargi Baca II, Dr. Rey Stevens Attending Unavailable MAGDALENA, SARIAH Attending Unavailable JAMIA DEL VALLE Consulting Unavailable PAYAMADOU Referring Unavailable SARIAH NICHOLS Admitting Unavailable DO Nirav Cain Primary Care Provider [phone] MD Chan Taylor Attending Provider [phone] Chaban, Kamal Admitting Unavailable Chaban, Chan Attending Unavailable House, Nirav Primary Care Unavailable Chaban, Weslyal Admitting Unavailable Chaban, Chan Attending Unavailable House, Nirav Primary Care Unavailable Chaban, Weslyal Attending Unavailable House, Nirav Primary Care Unavailable Chaban, Kamal Admitting Unavailable HOUSE, NIRAV P Primary Care Physician PRADEEPL, Marbin Carrillo Attending Unavailable HOUSE, NIRAV Mayers Referring Unavailable NILL, Marbin Carrillo Attending Unavailable NILL, Marbin Carrillo Attending Unavailable NILL, Marbin Carrillo Attending Unavailable HOUSE, NIRAV P Primary Care Unavailable HOUSE, NIRAV P Attending Unavailable HOUSE, NIRAV P Primary Care Unavailable Gallo FENTON, Abraham Case Attending Unavailable Gallo FENTON, Abraham Case Attending Unavailable HOUSE, NIRAV P Primary Care Unavailable HOUSE, NIRAV P Primary Care Unavailable Gallo FENTON, Abraham Case Attending Unavailable Allergies Allergy Classification Reported Allergen(s) Allergy Type Date of Onset Reaction(s) Facility (4 sources) Adhesive Tape; Translations: [Tape] Drug allergy irritation [facility] (2 sources) No Known Medication Allergies; Translations: [No Known Medication Allergies] Propensity to adverse reactions (disorder) [facility] Repository Medications Current Medications Medication Drug Class(es) Dates Sig (Normalized) Sig (Original) Acetaminophen (1 source) Start: 01-25-2023 acetaminophen (TYLENOL) tablet 650 mg albuterol 0.83 mg/ml inhalation solution (20 sources) beta2-Adrenergic Agonist Start: 07-07-2023 take 2.5 mg by inhalation every six hours albuterol 0.083% Inh Daniella 3 mL 2.5 mg, 3 mL, NEB, q6hr Shortness of breath or wheezing, Refill(s) 0 Start Date: 07/07/23 Status: Ordered Start: 01-26-2023 2.5 mg, Nebuli zation, EVERY 4 HOURS PRN, Starting on Tue01/26/23 at 1341, Until Discontinued, Wheezing Initiate RT Bronchodilator Protocol: Yes - Inpatient Protocol Start: 11-25-2020 ProAir HFA 108 (90 Base) MCG/ACT AERS as needed Quantity: 0 Refills: 0 Ordered: 17-Feb-2021 DO Start : 25-Nov-2020 Active Start: 09-16-2020 Albuterol Sulf ate (2.5 MG/3ML) 0.083% Inhalation Nebulization Solution INHALE CONTENTS OF 1 VIAL VIA NEBULIZER EVERY 6 HOURS NEEDED Quantity: 180 Refills: 0 Ordered: 16-Mar-2021 DO Start : 16-Sep-2020 Active Start: 08-31-2019 Albuterol Sulf ate Active 1 VIAL CNTNEBULIZ Q6H August 30, 2019 11:00pm Start: 08-31-2019 take 1 puff(s) by in halation every six hours Albuterol Sulfate Active 2 PUFF INHALATION Q6H August 30, 2019 11:00pm Start: 07-08-2015 ProAir HFA See Instructions, Inhalation, q6hr Shortness of breath or wheezing, Refill(s) 0 Start Date: 07/08/15 Status: Ordered Albuterol Sulfat e (2.5 MG/3ML) 0.083% 1 unit dose Inhalation four times a day DX J44.9 COPD Active albuterol (PROVE NTIL) (2.5 MG/3ML) 0.083% nebulizer solution Take 3 mLs by nebulization daily 0 Active take 2 puff(s) by in halation every four hours as needed ProAir HFA 108 (90 Base) MCG/ACT 2 puffs as needed Inhalation every 4 hrs Active aspirin 81 mg chewable tablet (13 sources) Platelet Aggregation Inhibitor, Nonsteroidal Anti-inflammatory Drug Start: 08-31-2019 End: 09-01-2019 Aspirin (Lexx Chewable Aspirin) 81 mg Tablet,Chewable Active 81 MG PO Every morning 0 September 01, 2019 10:42am continue daily ASA through 09/21/19 then discontinue per neurology orders Aspirin 81 mg Tab-EC (3 sources) Start: 07-08-2015 take 1 tablet by mouth once daily Aspirin 81 mg Tab-EC 81 mg = 1 tab(s), Oral, Daily, Refills(s) 0, Blood Thinner Start Date: 07/08/15 Status: Ordered atorvastatin 80 mg oral tablet (20 sources) HMG-CoA Reductase Inhibitor Start: 09-01-2019 take 1 tablet by mouth once daily atorvastatin 80 mg Tab 80 mg = 1 tab(s), Oral, Daily, Refills(s) 0 Start Date: 01/12/23 Status: Ordered Start: 08-31-2019 End: 09-01-2019 take 1 tablet by mouth once daily in the evening Atorvastatin (Lipitor) 40 mg Tablet Discontinued 40 MG PO Every evening August 30, 2019 11:00pm September 01, 2019 10:57am budesonide 0.25 mg/ml inhalation suspension (3 sources) Corticosteroid Start: 03-22-2023 take 2 mL by inhalation twice daily Budesonide 0.5 MG/2ML 2 ml Inhalation Twice a day for 30 day(s) Mar, Active 120 actuat budesonide 0.16 mg/actuat / formoterol fumarate 0.0045 mg/actuat metered dose inhaler (16 sources) Corticosteroid, beta2-Adrenergic Agonist Start: 08-31-2019 take 1 puff(s) by inhalation twice daily Budesonide-Formo terol (Symbicort) 160-4.5 mcg/actuation Hfa Aerosol Inhaler Active 2 PUFF INHALATION Twice daily August 30, 2019 11:00pm take 2 puff(s) by inhalation twi ce daily Symbicort 160-4.5 MCG/ACT 2 puffs Inhalation Twice a day Active Symbicort 160-4. 5 MCG/ACT Inhalation Aerosol USE DIRECTED. Quantity: 0 Refills: 0 Ordered: 16-Apr-2021 DO Active cephalexin 500 mg oral capsule (3 sources) Cephalosporin Antibacterial Start: 01-26-2023 End: 01-29-2023 take 1 capsule by mouth three times daily cephALEXin (KEFLEX) 500 MG capsule Take 1 capsule by mouth 3 times daily for 3 days 9 capsule 0 01/26/2023 01/29/2023 Active cholecalciferol 0.125 mg oral tablet (10 sources) Vitamin D Start: 08-31-2019 take 1 tablet by mouth once daily in the morning Cholecalciferol (Vitamin D3) (Vitamin D3) 125 mcg (5,000 unit) Tablet Active 125 MCG PO Every morning August 30, 2019 11:00pm Vitamin D 125 MC G (5000 UT) CAPS TAKE 1 CAPSULE Daily Quantity: 0 Refills: 0 Ordered: 16-Apr-2021 DO Active clopidogrel 75 mg oral tablet (20 sources) P2Y12 Platelet Inhibitor Start: 09-01-2019 take 1 tablet by mouth once daily Plavix 75 mg Tab 75 mg = 1 tab(s), Oral, Daily, Refills(s) 0 Start Date: 01/12/23 Status: Ordered codeine phosphate 2 mg/ml / promethazine hydrochloride 1.25 mg/ml oral solution (7 sources) Opioid Agonist, Phenothiazine Start: 06-24-2017 take 5 mL by mouth every six hours as needed Promethazine-Code ine 6.25-10 MG/5ML 5 ml as needed Orally every 6 hrs Jun, Active famotidine (PEPCID) 20 mg in sodium chloride (PF) 0.9 % 10 mL injection (1 source) Start: 01-25-2023 famotidine (PEPCID) 20 mg in sodium chloride (PF) 0.9 % 10 mL injection losartan potassium 50 mg oral tablet (18 sources) Angiotensin 2 Receptor Avani Start: 08-13-2020 take 1 tablet by mouth once daily losartan 50 mg Tab 50 mg = 1 tab(s), Oral, Daily, Refills(s) 0, High blood pressure Start Date: 08/13/20 Status: Ordered 100 ml magnesium sulfate 10 mg/ml injection (1 source) Start: 01-25-2023 take 1000 mg intravenously every hour as needed 1,000 mg, IntraVENous, at 100 mL/hr, Administer over 1 Hours, PRN, Other, Per IV Magnesium Replacement Protocol, Starting on Tue01/25/23 at 1835 Mg Lab &n bsp; Replace ment Action 1.4-1 .6 &nb sp; 1 gram IVPB x 2 doses &nbsp ; &nbs p; &nb sp; &n bsp; & nbsp; (2 gram Total) 1.0-1 .3 &nb sp; 1 gram IVPB x 4 doses &nbsp ; &nbs p; &nb sp; &n bsp; & nbsp; (4 gram Total) <1.0& nbsp; &nbsp ; CALL PHYSICIAN and &nbsp ; &nbs p; &nb sp; &n bsp; & nbsp; 1 gram IVPB x 4 doses &nbsp ; &nbs p;(4 gram Total) &nbsp ;Infuse at 1 gram/hr Repe at Mag level next AM Protocol not for use in Patients with CrCl<30ml/min&nbs p; nitroglycerin 0.4 mg sublingual tablet (14 sources) Nitrate Vasodilator Start: 04-16-2021 nitroglycerin 0.4 mg sublingual Tab 0.4 mg = 1 tab(s), SubLingual, q5min, PRN for chest pain, Refills(s) 0 Start Date: 01/12/23 Status: Ordered Nitrostat 0.4 MG as directed Sublingual Active ondansetron (ZOFRAN-ODT) disintegrating tablet 4 mg (1 source) Start: 01-25-2023 ondansetron (Z OFRAN-ODT) disintegrating tablet 4 mg piperacillin-tazobactam (ZOS YN) 3,375 mg in sodium chloride 0.9 % 50 mL IVPB (mini-bag) (1 source) Start: 01-25-2023 piperacillin-t azobactam (ZOSYN) 3,375 mg in sodium chloride 0.9 % 50 mL IVPB (mini-bag) Potassium Chloride (1 source) Start: 01-25-2023 potassium chlo ride (KLOR-CON M) extended release tablet 40 mEq predniSONE 10 mg oral tablet (6 sources) Start: 04-01-2022 predniSONE 10 MG 4 tablets daily x 4 days , 2 tablets daily x 4 days, 1 tablet daily x 4 days then stop Orally as directed for 12 days Keep on hand to use prn Apr, Active Start: 10-26-2021 predniSONE 10 MG 4 tablets daily x 4 days , 2 tablets daily x 4 days, 1 tablet daily x 4 days then stop Orally as directed for 12 days Sep, Active ProAir HFA 108 (90 Base) MCG/ACT (4 sources) take 2 puff(s) by inhalation every four hours as needed ProAir HFA 108 (90 Base) MCG/ACT 2 puffs as needed Inhalation every 4 hrs Active Yupelri (13 sources) Start: 08-13-2020 take 175 ug by inhalation once daily Yupelri 175 mcg, Inhalation, Daily, Refills(s) 0, Shortness of breath or wheezing Start Date: 08/13/20 Status: Ordered Start: 12-19-2019 take 3 mL by inhalat ion once daily Yupelri 175 MCG/3ML 3 ml Inhalation daily DX J44.9 COPD Nov, Active Yupelri 175 MCG/ 3ML Inhalation Solution as directed Quantity: 0 Refills: 0 Ordered: 15-Apr-2022 DO Active take 3 mL by inhalat ion once daily revefenacin (YUPELRI) 175 MCG/3ML SOLN Inhale 3 mLs into the lungs daily 0 Active spironolactone 50 mg oral tablet (20 sources) Aldosterone Antagonist Start: 07-08-2015 take 1 tablet by mouth once daily spironolactone 50 mg Tab 50 mg = 1 tab(s), Oral, Daily, Refills(s) 0, diuretic/water pill Start Date: 07/08/15 Status: Ordered Symbicort 160/4.5 inhalation aerosol with adapter (1 source) Start: 11-10-2016 take 2 puff(s) by inhalation twice daily Symbicort 160/4.5 inhalation aerosol with adapter 2 puff(s), Inhalation, BID, COPD Start Date: 11/10/16 Status: Ordered tiotropium 0.018 mg inhalation powder (3 sources) Anticholinergic Start: 08-31-2019 take 1 capsule by inhalation once daily in the morning Tiotropium Normangee (Spiriva With Handihaler) 18 mcg Capsule, W/Inhalation Device Active 1 CAP INHALATION Every morning August 30, 2019 11:00pm Wixela Inhub (2 sources) Start: 07-12-2023 take 1 puff(s) by inhalation twice daily Wixela Inhub 1 puff, Inhalation, BID, Refill(s) 0 Start Date: 07/12/23 Status: Ordered Completed/Discontinued Medications Medication Drug Class(es) Dates Sig (Normalized) Sig (Original) 0.4 ml enoxaparin sodium 100 mg/ml prefilled syringe (1 source) Low Molecular Weight Heparin Start: 01-25-2023 inject 40 mg by subcutaneous injection once daily 40 mg, SubCUTAneous, DAILY, First dose on Tue01/25/23 at 1900, Until Discontinued Indication of Use: Prophylaxis-DVT/PE Administer by deep subCUTAneous injection with pt lying down. Alternate injection sites on abdominal wall. Do not rub site after injection. Check with provider prior to any invasive procedure. 1 ml HYDROmorphone hydrochloride 1 mg/ml cartridge (1 source) Opioid Agonist Start: 01-26-2023 End: 01-26-2023 HYDROmorphone (DILAUDID) injection 0.25 mg Start: 01-26-2023 End: 01-26-2023 HYDROmorphone (DILAUDID) inj ection 0.25 mg 1 ml LORazepam 2 mg/ml injection (8 sources) Benzodiazepine Start: 01-26-2023 End: 01-26-2023 LORazepam (ATIVAN) injection 0.5 mg take 1 tablet by mouth every six hours LORazepam 0.5 MG 1 tablet as needed Orally every 6 hrs Active methylPREDNISolone (7 sources) Corticosteroid Start: 01-31-2017 Depo-Medrol 80 mg Jan, 60 mg 24 hr metoprolol succinate 25 mg extended release oral tablet (20 sources) beta-Adrenergic Avani Start: 01-26-2023 take 50 mg by mouth once daily 50 mg, Oral, DAILY, First dose on Tue01/26/23 at 1400, Until Discontinued Do not crush or chew. Start: 08-31-2019 take 1 tablet by robert th once daily metoprolol 50 mg ER Tab 50 mg = 1 tab(s), Oral, Daily, Refills(s) 0 Start Date: 01/12/23 Status: Ordered 1 ml morphine sulfate 2 mg/ml cartridge (1 source) Opioid Agonist Start: 01-25-2023 End: 01-26-2023 take 2 mg by mouth every four hours as needed for pain 2 mg, IntraVENous, EVERY 4 HOURS PRN, Starting on Tue01/25/23 at 1836, Until Tue01/26/23 at 0017, Pain Severe (7-10) If oral and IV narcotics ordered, use oral first and only use IV if oral is ineffective or cannot take oral. Do Not give oral and IV within 1 hour of each other unless specifically ordered. polyethylene glycol 3350 15587 mg powder for oral solution (1 source) Osmotic Laxative Start: 01-25-2023 17 g, Oral, DAILY PRN, Starting on Tue01/25/23 at 1835, Until Discontinued, Constipation First line therapy for constipation 5 ml sodium chloride 9 mg/ml injection (4 sources) Start: 01-25-2023 take 1 dose intravenously twice daily 5-40 mL, IntraVENous, EVERY 12 HOURS SCHEDULED (2 times per day), First dose on Tue01/25/23 at 2100, Until Discontinued For Line Patency: Peripheral IV = 5 mL; Midline or Central Line = 10 mL/lumen. &nbs p;If following IV push medication, administer flush at same rate as the IV push. Flush volume is determined by type of infusion therapy being given. For non-viscous solutions use: Peripheral IV = 5 mL Midline or Central Line = 10 mL/lumen For viscous solutions (i.e. blood components, parenteral nutrition, contrast media, or after obtaining blood sample) use: Peripheral IV = 10 mL Midline or Central Line = 20 mL/lumen Start: 01-25-2023 IntraVENous, a t 75 mL/hr, CONTINUOUS, Starting on Tue01/25/23 at 1900 Start: 01-25-2023 IntraVENous, a t 5-250 mL/hr, PRN, if patient receiving piggyback infusions and maintenance fluids are not ordered OR KVO fluids to protect IV site / prevent frequent line interruptions/ long duration, Starting on Tue01/25/23 at 1835 For piggyback infusion, administer at same rate as piggyback for a total of 25 mL. Enter 25 mL into dose field and piggyback rate into rate field of order. If piggyback is infusing at a rate less than 100 mL/hr, enter 25 mL into dose field and 100 mL/hr into rate field of order. For KVO fluids, enter rate of 20 mL/hr or less into rate field of order. Start: 01-25-2023 take 10 mL intraveno usly once as needed 10 mL, IntraVENous, PRN, Starting on Tue01/25/23 at 1835, Until Discontinued, Line Care, After every IV line use technetium mebrofenin (CHOLETEC) injection 3.5 millicurie (1 source) Start: 01-26-2023 End: 01-26-2023 technetium mebrofenin (CHOLETEC) injection 3.5 millicurie Vitamin D 1000 intl units Tab (1 source) Start: 09-17-2020 take 1 tablet by mouth once daily Vitamin D 1000 intl units Tab 1,000 International_Unit = 1 tab(s), Oral, Daily, # 30 tab(s), Refills(s) 0 Start Date: 09/17/20 Status: Ordered Problems Active Problems Problem Classification Problem Date Documented Date Episodic/Chronic Abdominal hernia (3 sources) Incisional hernia; Translations: [Incisional hernia without obstruction or gangrene] Onset: 07-12-2023 Episodic Abdominal pain (11 sources) Unspecified abdominal pain; Translations: [Abdominal pain] Onset: 04-23-2021 Resolved: 01-26-2023 Episodic Acute cerebrovascular disease (9 sources) Cerebrovascular accident; Translations: [Cerebral artery occlusion, unspecified with cerebral infarction] 09-01-2019 Chronic Asthma (12 sources) Asthma; Translations: [Asthma, unspecified type, unspecified] 01-19-2023 Chronic Biliary tract disease (5 sources) Calculus of gallbladder without cholecystitis without obstruction; Translations: [Acute cholecystitis] Onset: 04-28-2021 Episodic Blindness and vision defects (3 sources) Transient visual loss; Translations: [Transient visual loss, unspecified eye] 08-31-2019 Episodic Chronic obstructive pulmonary disease and bronchiectasis (20 sources) Chronic obstructive lung disease; Translations: [Chronic airway obstruction, not elsewhere classified] Onset: 07-29-2021 Resolved: 01-12-2023 Chronic Congestive heart failure; nonhypertensive (7 sources) Unspecified systolic (congestive) heart failure; Translations: [Acute on chronic systolic heart failure] Onset: 07-08-2015 01-12-2023 Chronic Coronary atherosclerosis and other heart disease (19 sources) Atherosclerotic heart disease of [place] coronary artery without angina pectoris; Translations: [Coronary arteriosclerosis] Onset: 07-08-2015 Resolved: 07-29-2021 Chronic Diabetes mellitus without complication (3 sources) Prediabetes 01-12-2023 Episodic Disorders of lipid metabolism (15 sources) Hyperlipidemia; Translations: [Other and unspecified hyperlipidemia] 08-31-2019 Chronic Essential hypertension (18 sources) Hypertensive disorder; Translations: [Unspecified essential hypertension] Onset: 12-21-2022 08-31-2019 Chronic Nonspecific chest pain (3 sources) Chest pain; Translations: [Chest pain, unspecified] Onset: 12-21-2022 Episodic Other circulatory disease (3 sources) History of cerebrovascular accident 01-19-2023 Episodic Other circulatory disease (3 sources) History of transient ischemic attack 01-19-2023 Episodic Other connective tissue disease (3 sources) Disorder of rotator cuff 11-10-2016 Episodic Other connective tissue disease (3 sources) Plantar fasciitis 07-08-2015 Episodic Other liver diseases (2 sources) Enzyme level - finding; Translations: [Transaminitis] Onset: 01-25-2023 01-25-2023 Episodic Other liver diseases (2 sources) Increased bilirubin level; Translations: [Unspecified jaundice] Onset: 01-25-2023 01-25-2023 Episodic Other liver diseases (2 sources) Alkaline phosphatase raised; Translations: [Abnormal levels of other serum enzymes] Onset: 01-25-2023 01-25-2023 Episodic Other non-epithelial cancer of skin (2 sources) History of malignant basal cell neoplasm of skin 07-07-2023 Episodic Other nutritional; endocrine; and metabolic disorders (9 sources) Obesity; Translations: [Obesity, unspecified] 07-08-2015 Chronic Other nutritional; endocrine; and metabolic disorders (2 sources) Body mass index 30+ - obesity 07-12-2023 Chronic Other nutritional; endocrine; and metabolic disorders (2 sources) Morbid obesity 07-12-2023 Chronic Other screening for suspected conditions (not mental disorders or infectious disease) (2 sources) Increased lactic acid level; Translations: [Other specified abnormal findings of blood chemistry] Onset: 01-25-2023 Resolved: 01-26-2023 01-26-2023 Episodic Christiane-; endo-; and myocarditis; cardiomyopathy (except that caused by tuberculosis or sexually transmitted disease) (3 sources) Cardiomyopathy 07-08-2015 Chronic Residual codes; unclassified (2 sources) History of excision of intestinal structure; Translations: [Acquired absence of other specified parts of digestive tract] Onset: 01-25-2023 01-25-2023 Episodic Screening and history of mental health and substance abuse codes (5 sources) Personal history of nicotine dependence; Translations: [Ex-smoker] Onset: 04-28-2021 Episodic Comment on above: quit 2006 minimal sm oker; Transient cerebral ischemia (3 sources) Transient cerebral ischemia; Translations: [Transient cerebral ischemic attack, unspecified] 08-31-2019 Chronic Past or Other Problems Problem Classification Problem Date Documented Da te Episodic/Chronic Conditions associated with dizziness or vertigo (1 source) Dizziness and giddiness Onset: 07-29-2021 Resolved: 07-29-2021 Episodic Other aftercare (1 source) Encounter for follow-up examination after completed treatment for conditions other than malignant neoplasm; Translations: [Encounter for follow-up examination after completed treatment for conditions other than malignant neoplasm] Onset: 11-15-2016 Episodic Other aftercare (1 source) Other long term acute care registered nurse (current) drug therapy; Translations: [OTH SUPERVISOR MAINTENANCE AND CUSTODIANS CURRENT DRUG THERAPY] Onset: 04-28-2021 Episodic Other circulatory disease (6 sources) H/O: hypertension; Translations: [Personal history of other diseases of circulatory system] Resolved: 04-16-2021 Episodic Results Test Name Value Interpretation Reference Range Facility ECG 12-Leadon 09-02-2023 ECG 12-Lead [id number]#1.00TIFF Normal [facility] Lab Reportson 09-02-2023 Lab Reports [id number]#1.00TIFF Normal [facility] Lab Reports [id number]#1.00TIFF [facility] RAD - MISCon 09-02-2023 RAD - MISC [id number]#1.00TIFF [facility] Pre-Certification Formon Pre-Certification Form [id number]#1.00TIFF Normal [facility] Provider Orderson 08-25-2023 Provider Orders [id number]#1.00OTGTIF [facility] Insurance Correspondenceon 0 08-24-2023 Insurance Correspondence [id number]#1.00TIFF [facility] Formson 08-16-2023 Forms [id number]#1.00TIFF [facility] General Surgery Office/Clini c Noteon 08-04-2023 General Surgery Office/Clinic Note Chief Complaint discuss hernia repair HPI Staff Presents to discuss incisional hernia repair after completion of CT ABD/pelvis. Denies change in symptoms since last evaluation. Patient on Plavix. History of Present Illness 62 yo male with h/o COPD/asthma, htn, hypercholesterolemia, h/o CVA, presents for f/u after abd ct scan for incisional hernia; patient with mild soreness at time in umbilical area with coughing, no skin changes, no N/V or bowel changes; ct scan with evidence of small incisional hernia at periumbilical port site, containing loop of non-obstructed small bowel; abdominal operations significant for LS cholecystectomy 12/2022, RIHR and remote exploratory laparotomy with small bowel resection via lower midline incision; on baby asa and Plavix daily; no tobacco use. Review of Systems PHQ Score Initial Depression Screen Score: 0 SCORE ROS - Provider Constitutional: no fever, no sweats, no weight loss. Eyes: no glasses, no blurred vision, no visual loss. ENMT: no dentures, no hoarseness, no swallowing difficulties, no hearing loss, no ear infection(s), no nose bleeds. Cardiovascular: normal blood pressure, no chest pain, regular heartbeat, no heart murmur. Respiratory: no shortness of breath, no cough, no asthma, no wheezing. Gastrointestinal: no nausea, no vomiting, no diarrhea, no constipation, no blood in stool, no change in bowel habits, mild abdominal pain, no hepatitis. Genitourinary: no kidney stones, no urine infection, no dysuria. Musculoskeletal: no pain, no weakness. Skin: no changing moles, no rash, no skin lumps. Neurologic: no seizures, no epilepsy, no headache. Psychiatric: no emotional or psychiatric problem. Heme/Lymph: no bleeding problems, no anemia, no blood clots, no transfusions. Allergy/Immunologic: no swollen lymph nodes/glands, no IV drug abuse. Other: Additional ROS info: Except as noted in the above Review of Systems and in the History of Present Illness, all other systems have been reviewed and are negative or noncontributory. Physical Exam Vitals & Measurements HR: 72(Peripheral) RR: 16 BP: 122/82 HT: 71 in HT: 180 cm WT: 121 kg WT: 266.2 lb BMI: 37.35 HEENT: normal conjunctiva, sclera clear, no scleral icterus, EOM intact, PERRLA, oral mucosa moist without lesions. Neck: trachea midline, no mass, symmetric, no thyromegaly or nodules, no adenopathy Respiratory: lungs CTA, respirations non labored. Cardiovascular: regular rate and rhythm, no murmur, no pedal edema or varicosities. Gastrointestinal: obese, soft, non distended, no tenderness, no masses, supraumbilical port site hernia, noreducible, no skin changes, nontender, hernia sac 2.5 cm diastasis recti yes, no hepatosplenomegaly; normal bs Lymphatic: no cervical adenopathy, no supraclavicular adenopathy. Musculoskeletal: normal gait, digits and nails without infection, nodes, cyanosis, clubbing. Skin: no rashes, no lesions, no ulcers, no subcutaneous nodules, induration. Psychiatric/Neuro: oriented to time, place, person, judgement normal, affect appropriate for age, insight intact, no focal deficits. Tests: labs reviewed, x-rays reviewed, review of old records completed , Discussed surgical options, risks, and possible complications with patient. Assessment/Plan 1. Incisional hernia (K43.2: Incisional hernia without obstruction or gangrene) plan robotic-assisted incisional herniorrhaphy with mesh insertion, possible open procedure; informed consent obtained. signs/symptoms of incarceration/strangulatio n of hernia explained in detail, and patient understands that he should seek prompt medical evaluation if they were to occur. Ancef 2 gms IV prior to OR SCDs 2. BMI 37.0-37.9, adult (Z68.37: Body mass index [BMI] 37.0-37.9, adult) recommend diet and exercise. Follow-up No qualifying data available Problem List/Past Medical History Ongoing Acute gangrenous cholecystitis Acute on chronic systolic heart failure Asthma BMI 37.0-37.9, adult Chronic obstructive pulmonary disease Combined systolic and diastolic dysfunction Coronary atherosclerosis Epigastric pain History of basal cell carcinoma History of CVA (cerebrovascular accident) Hypercholesterolemia Hypertensive disorder Incisional hernia Morbid obesity Prediabetes Historical Cardiomyopathy Chronic obstructive lung disease COPD (chronic obstructive pulmonary disease) History of TIA (transient ischemic attack) HTN (hypertension) Obesity Plantar fasciitis Procedure/Surgical History Laparoscopic cholecystectomy (01/10/2023), Colonoscopy (09/17/2020), Right shoulder arthroscopy with extensive glenohumeral debridement, subacromial decompression, mini-open rotator cuff repair (11/23/2016), Rt/Lt Heart Catheterization (07/11/2015), Colonoscopy, Excision of basal cell carcinoma, Repair of right inguinal hernia, Small bowel resection, Tonsillectomy. Medications albuterol 0.083% Inh Daniella 3 mL, 2.5 mg= 3 mL, NEB, q6hr, PRN A (more content not included)... Normal [facility] Comment on above: Result Comment: Elec tronically Signed By: LIN FENTON, Marbin Chaudhari\Date and Time Signed: 08/04/23 08:34 EDT Consent for Procedure/Surger yon 08-03-2023 Consent for Procedure/Surgery [id number]#1.00TIFF Normal [facility] Ambulatory Visit Summaryon 0 08-02-2023 Ambulatory Visit Summary ABRAHAM HARRY :1960 Visit Date:08/02/2023 Ambulatory Visit Instructions Your Care Team Attending Physician - LIN FENTON, Marbin Carrillo Primary Care Physician - NIRAV CAIN DO This Is Your Medications List Contact prescribing physician if questions or concerns albuterol (albuterol 0.083% Inh Daniella 3 mL) aspirin (Aspirin 81 mg Tab-EC) atorvastatin (atorvastatin 80 mg Tab) clopidogrel (Plavix 75 mg Tab) fluticasone-salmeterol (Wixela Inhub) losartan (losartan 50 mg Tab) metoprolol (metoprolol 50 mg ER Tab) spironolactone (spironolactone 50 mg Tab) Procedures Performed Laparoscopic cholecystectomy (01/10/2023), Colonoscopy (09/17/2020), Right shoulder arthroscopy with extensive glenohumeral debridement, subacromial decompression, mini-open rotator cuff repair (11/23/2016), Rt/Lt Heart Catheterization (07/11/2015), Colonoscopy, Excision of basal cell carcinoma, Repair of right inguinal hernia, Small bowel resection, Tonsillectomy. Discharge Vitals Heart Rate (Peripheral) 72 Respiratory Rate 16 Blood Pressure 122/82 Height 180 cm Height 71 in Weight 121 kg Weight 266.2 lb BMI 37.35 Medications What How Much When Instructions Unchanged albuterol (albuterol 0.083% Inh Daniella 3 mL) 3 Milliliter Nebulized inhalation (aerosol) Every 6 hours as needed for Shortness of breath or wheezing Contact prescribing physician if questions or concerns Unchanged aspirin (Aspirin 81 mg Tab-EC) 1 Tablets By Mouth Every day Contact prescribing physician if questions or concerns Unchanged atorvastatin (atorvastatin 80 mg Tab) 1 Tablets By Mouth Every day Contact prescribing physician if questions or concerns Unchanged clopidogrel (Plavix 75 mg Tab) 1 Tablets By Mouth Every day Contact prescribing physician if questions or concerns Unchanged fluticasone-salmeterol (Wixela Inhub) 1 puff Inhalation 2 times a day Contact prescribing physician if questions or concerns Unchanged losartan (losartan 50 mg Tab) 1 Tablets By Mouth Every day Contact prescribing physician if questions or concerns Unchanged metoprolol (metoprolol 50 mg ER Tab) 1 Tablets By Mouth Every day Contact prescribing physician if questions or concerns Unchanged spironolactone (spironolactone 50 mg Tab) 1 Tablets By Mouth Every day Contact prescribing physician if questions or concerns Allergies Tape (irritation) Problems Ongoing - Any problem that you are currently receiving treatment for. Acute gangrenous cholecystitis Acute on chronic systolic heart failure Asthma BMI 37.0-37.9, adult Chronic obstructive pulmonary disease Combined systolic and diastolic dysfunction Coronary atherosclerosis Epigastric pain History of basal cell carcinoma History of CVA (cerebrovascular accident) Hypercholesterolemia Hypertensive disorder Incisional hernia Morbid obesity Prediabetes Historical - Any problem that you are no longer receiving treatment for. Cardiomyopathy Chronic obstructive lung disease COPD (chronic obstructive pulmonary disease) History of TIA (transient ischemic attack) HTN (hypertension) Obesity Plantar fasciitis Patient Survey You may receive a survey via text or e-mail asking about your office visit. Please share your experience with us by completing your survey. We appreciate your feedback and thank you for choosing us for your care. [facility] Ambulatory Visit Summary ABRAHAM HARRY :1960 Visit Date:08/02/2023 Ambulatory Visit Instructions Your Care Team Attending Physician - LIN FENTON, Marbin Carrillo Primary Care Physician - NIRAV CAIN DO This Is Your Medications List Contact prescribing physician if questions or concerns albuterol (albuterol 0.083% Inh Daniella 3 mL) aspirin (Aspirin 81 mg Tab-EC) atorvastatin (atorvastatin 80 mg Tab) clopidogrel (Plavix 75 mg Tab) fluticasone-salmeterol (Wixela Inhub) losartan (losartan 50 mg Tab) metoprolol (metoprolol 50 mg ER Tab) spironolactone (spironolactone 50 mg Tab) Procedures Performed Laparoscopic cholecystectomy (01/10/2023), Colonoscopy (09/17/2020), Right shoulder arthroscopy with extensive glenohumeral debridement, subacromial decompression, mini-open rotator cuff repair (11/23/2016), Rt/Lt Heart Catheterization (07/11/2015), Colonoscopy, Excision of basal cell carcinoma, Repair of right inguinal hernia, Small bowel resection, Tonsillectomy. Discharge Vitals Heart Rate (Peripheral) 72 Respiratory Rate 16 Blood Pressure 122/82 Height 180 cm Height 71 in Weight 121 kg Weight 266.2 lb BMI 37.35 Medications What How Much When Instructions Unchanged albuterol (albuterol 0.083% Inh Daniella 3 mL) 3 Milliliter Nebulized inhalation (aerosol) Every 6 hours as needed for Shortness of breath or wheezing Contact prescribing physician if questions or concerns Unchanged aspirin (Aspirin 81 mg Tab-EC) 1 Tablets By Mouth Every day Contact prescribing physician if questions or concerns Unchanged atorvastatin (atorvastatin 80 mg Tab) 1 Tablets By Mouth Every day Contact prescribing physician if questions or concerns Unchanged clopidogrel (Plavix 75 mg Tab) 1 Tablets By Mouth Every day Contact prescribing physician if questions or concerns Unchanged fluticasone-salmeterol (Wixela Inhub) 1 puff Inhalation 2 times a day Contact prescribing physician if questions or concerns Unchanged losartan (losartan 50 mg Tab) 1 Tablets By Mouth Every day Contact prescribing physician if questions or concerns Unchanged metoprolol (metoprolol 50 mg ER Tab) 1 Tablets By Mouth Every day Contact prescribing physician if questions or concerns Unchanged spironolactone (spironolactone 50 mg Tab) 1 Tablets By Mouth Every day Contact prescribing physician if questions or concerns Allergies Tape (irritation) Problems Ongoing - Any problem that you are currently receiving treatment for. Acute gangrenous cholecystitis Acute on chronic systolic heart failure Asthma BMI 37.0-37.9, adult Chronic obstructive pulmonary disease Combined systolic and diastolic dysfunction Coronary atherosclerosis Epigastric pain History of basal cell carcinoma History of CVA (cerebrovascular accident) Hypercholesterolemia Hypertensive disorder Incisional hernia Morbid obesity Prediabetes Historical - Any problem that you are no longer receiving treatment for. Cardiomyopathy Chronic obstructive lung disease COPD (chronic obstructive pulmonary disease) History of TIA (transient ischemic attack) HTN (hypertension) Obesity Plantar fasciitis Patient Survey You may receive a survey via text or e-mail asking about your office visit. Please share your experience with us by completing your survey. We appreciate your feedback and thank you for choosing us for your care. [facility] RAD - CT Reporton 08-01-2023 RAD - CT Report [id number]#1.00TIFF [facility] Rad - Other Radiology Report on 07-28-2023 Rad - Other Radiology Report [id number]#1.00OTGTIFF [facility] Pre-Certification Formon Pre-Certification Form [id number]#1.00TIFF Normal [facility] Lab Reportson 07-26-2023 Lab Reports [id number]#1.00TIFF [facility] Miscellaneouson 07-20-2023 Miscellaneous [id number]#1.00OTGTIFF Normal [facility] Ambulatory Visit Summaryon 0 07-12-2023 Ambulatory Visit Summary ABRAHAM HARRY :1960 Visit Date:07/12/2023 Ambulatory Visit Instructions Your Care Team Attending Physician - Marbin CEBALLOS MD Primary Care Physician - [place] NIRAV LADD Referring Physician - NIRAV CAIN DO This Is Your Medications List Contact prescribing physician if questions or concerns albuterol (albuterol 0.083% Inh Daniella 3 mL) aspirin (Aspirin 81 mg Tab-EC) atorvastatin (atorvastatin 80 mg Tab) clopidogrel (Plavix 75 mg Tab) fluticasone-salmeterol (Wixela Inhub) losartan (losartan 50 mg Tab) metoprolol (metoprolol 50 mg ER Tab) spironolactone (spironolactone 50 mg Tab) Procedures Performed Laparoscopic cholecystectomy (01/10/2023), Colonoscopy (09/17/2020), Right shoulder arthroscopy with extensive glenohumeral debridement, subacromial decompression, mini-open rotator cuff repair (11/23/2016), Rt/Lt Heart Catheterization (07/11/2015), Colonoscopy, Excision of basal cell carcinoma, Repair of right inguinal hernia, Tonsillectomy. Discharge Vitals Heart Rate (Peripheral) 72 Respiratory Rate 16 Blood Pressure 126/88 Height 180 cm Height 71 in Weight 120 kg Weight 264 lb BMI 37.04 Medications What How Much When Instructions Unchanged albuterol (albuterol 0.083% Inh Daniella 3 mL) 3 Milliliter Nebulized inhalation (aerosol) Every 6 hours as needed for Shortness of breath or wheezing Contact prescribing physician if questions or concerns Unchanged aspirin (Aspirin 81 mg Tab-EC) 1 Tablets By Mouth Every day Contact prescribing physician if questions or concerns Unchanged atorvastatin (atorvastatin 80 mg Tab) 1 Tablets By Mouth Every day Contact prescribing physician if questions or concerns Unchanged clopidogrel (Plavix 75 mg Tab) 1 Tablets By Mouth Every day Contact prescribing physician if questions or concerns Unchanged fluticasone-salmeterol (Wixela Inhub) 1 puff Inhalation 2 times a day Contact prescribing physician if questions or concerns Unchanged losartan (losartan 50 mg Tab) 1 Tablets By Mouth Every day Contact prescribing physician if questions or concerns Unchanged metoprolol (metoprolol 50 mg ER Tab) 1 Tablets By Mouth Every day Contact prescribing physician if questions or concerns Unchanged spironolactone (spironolactone 50 mg Tab) 1 Tablets By Mouth Every day Contact prescribing physician if questions or concerns Medications and Immunizations Administered Not Given influenza virus vaccine, inactivated, Patient Refuses Allergies Tape (irritation) Problems Ongoing - Any problem that you are currently receiving treatment for. Acute gangrenous cholecystitis Acute on chronic systolic heart failure Asthma BMI 37.0-37.9, adult Chronic obstructive pulmonary disease Combined systolic and diastolic dysfunction Coronary atherosclerosis History of basal cell carcinoma History of CVA (cerebrovascular accident) Hypercholesterolemia Hypertensive disorder Morbid obesity Prediabetes Historical - Any problem that you are no longer receiving treatment for. Cardiomyopathy Chronic obstructive lung disease COPD (chronic obstructive pulmonary disease) History of TIA (transient ischemic attack) HTN (hypertension) Obesity Plantar fasciitis Patient Survey You may receive a survey via text or e-mail asking about your office visit. Please share your experience with us by completing your survey. We appreciate your feedback and thank you for choosing us for your care. [facility] Physician Referralon 024 Physician Referral [id number]#1.00TIFF [facility] Lab - Other Lab Resultson Lab - Other Lab Results [id number]#1.00OTGTIFF [facility] Lab - Other Lab Results [id number]#1.00OTGTIFF [facility] Lab - Other Lab Results [id number]#1.00OTGTIFF [facility] Lab - Other Lab Results [id number]#1.00OTGTIFF [facility] Lab - Other Lab Resultson Lab - Other Lab Results [id number]#1.00OTGTI FF [facility] Konstantin White Allergenon 023 Konstantin White Allergen <0.10 Normal Class 0 [facility] Comment on above: Performed By: #### S STACI KUHN, SYCAMORE, KONSTANTIN WHITE, MULBERRY WHITE, BIRCH TREE #### [facility] , [place] Common Silver All chucky 04-05-2023 [place] Common Silver Aller <0.10 Normal Class 0 [facility] Comment on above: Performed By: #### S STACI KUHN, SYDUGLASORE, KONSTANTIN WHITE, MULBERRY WHITE, BIRCH TREE #### [facility] , [place], White Allergenon 06-06-2022 [place], [place] Allergen <0.10 Normal Class 0 [facility] Comment on above: Result Comment: Perf ormed at: - [facility] [address] [id number] Ict Developer: Christiana Arenas MD, Phone: [phone] PERFORMED BY: [facility] [address] [place] [address] PATHOLOGIST RENTAL COUNTER CLERK EDUARD MARCANO M.D. Performed By: #### S STACI KUHN, SYDUGLASORE, KONSTANTIN WHITE, MULBERRY WHITE, BIRCH TREE #### [facility] , [place] Sheep Allergenon [place] Sheep Allergen 0.10 Critically abnormal Class 0/I [facility] Comment on above: Result Comment: Sapphire avitia of Specific IgE Class Description of Class ----- < 0.10 0 Negative 0.10 - 0.31 0/I Equivocal/Low 0.32 - 0.55 I Low 0.56 - 1.40 II Moderate 1.41 - 3.90 III High 3.91 - 19.00 IV Very High 19.01 - 100.00 V Very High >100.00 Very High Performed By: #### S STACI KUHN, SYCAMORE, KONSTANTIN WHITE, MULBERRY WHITE, BIRCH TREE #### [facility] , [place] Allergenon 04-05-20 23 [place] Allergen 0.15 Critically abnormal Class 0/I [facility] Comment on above: Result Comment: Perf ormed at: [facility] [id number] Ict Developer: Christiana Arenas MD, Phone: [phone] Performed By: #### S STACI KUHN, SYCAMANDRES, KONSTANTIN WHITE, MULBERRY WHITE, BIRCH TREE #### [facility] , Outside Recordson 03-23-2023 Outside Records [id number]#1.00OTGTIFF Normal [facility] Alternaria alternata IgE Ab [Units/volume] in SerumOrdered By: Chan Taylor on 03-22-2023 A. alternata IgE Qn (S) 0.22 kU/L Class 0/I [facility] Syrian house dust mite IgE Ab [Units/volume] in SerumOrdered By: Chan Taylor on 03-22-2023 Syrian house dust mite IgE Qn (S) 17.30 kU/L Class IV [facility] Area 5 Allergens with IgEon 03-22-2023 Alternaria Alternata 0.22 Critically abnormal Class 0/I [facility] Comment on above: Performed By: #### A LLERGEN 5 #### [facility] , Konstantin White Allergen Normal . [facility] Comment on above: Result Comment: Test not performed. Insufficient specimen to perform or complete analysis. Contacted your facility 03/31/2023 Performed By: #### A LLERGEN 5 #### [facility] , Aspergillis Fumigatus Allergen <0.10 Normal Class 0 [facility] Comment on above: Performed By: #### A LLERGEN 5 #### [facility] , [place] Grass Allergen 0.15 Critically abnormal Class 0/I [facility] Comment on above: Performed By: #### A LLERGEN 5 #### [facility] , [place] Common Silver Aller Normal . [facility] Comment on above: Result Comment: Test not performed. Insufficient specimen to perform or complete analysis. Contacted your facility 03/31/2023 Performed By: #### A LLERGEN 5 #### [facility] , Cat Hair/Dander Allergen 1.32 Critically abnormal Class II [facility] Comment on above: Performed By: #### A LLERGEN 5 #### [facility] , [place], Mountain Allergen 0.11 Critically abnormal Class 0/I [facility] Comment on above: Performed By: #### A LLERGEN 5 #### [facility] , [place] Herbarum <0.10 Normal Class 0 [facility] Comment on above: Performed By: #### A LLERGEN 5 #### [facility] , CLASS DESCRIPTION Normal . [facility] Comment on above: Result Comment: Sapphire avitia of Specific IgE Class Description of Class ----- < 0.10 0 Negative 0.10 - 0.31 0/I Equivocal/Low 0.32 - 0.55 I Low 0.56 - 1.40 II Moderate 1.41 - 3.90 III High 3.91 - 19.00 IV Very High 19.01 - 100.00 V Very High >100.00 Very High Performed By: #### A LLERGEN 5 #### [facility] , Cockroach Georgian Allergen 0.33 Critically abnormal Class I [facility] Comment on above: Performed By: #### A LLERGEN 5 #### [facility] , [place] Allergen <0.10 Normal Class 0 [facility] Comment on above: Performed By: #### A LLERGEN 5 #### [facility] , D Farinae Mite Allergen 17.30 Critically abnormal Class IV [facility] Comment on above: Performed By: #### A LLERGEN 5 #### [facility] , D Pteronyssinus Allergen 18.40 Critically abnormal Class IV [facility] Comment on above: Performed By: #### A LLERGEN 5 #### [facility] , Dog Hair/Dander Allergen 0.28 Critically abnormal Class 0/I [facility] Comment on above: Performed By: #### A LLERGEN 5 #### [facility] , [place] Allergen <0.10 Normal Class 0 [facility] Comment on above: Performed By: #### A LLERGEN 5 #### [facility] , Immunoglobulin E 111 Normal 6-495 [facility] Comment on above: Performed By: #### A LLERGEN 5 #### [facility] , Maple/Nome Allergen 0.13 Critically abnormal Class 0/I [facility] Comment on above: Performed By: #### A LLERGEN 5 #### [facility] , Mouse Urine Allergen <0.10 Normal Class 0 [facility] Comment on above: Result Comment: PERF ORMED BY: [facility] [address] [place] [address] PATHOLOGIST RENTAL COUNTER CLERK EDUARD MARCANO M.D. Performed By: #### A LLERGEN 5 #### [facility] , [place], White Allergen Normal . [facility] Comment on above: Result Comment: Test not performed. Insufficient specimen to perform or complete analysis. Contacted your facility 03/31/2023 Performed By: #### A LLERGEN 5 #### [facility] , [place] Tree Allergen <0.10 Normal Class 0 [facility] Comment on above: Performed By: #### A LLERGEN 5 #### [facility] , Pecan/Center [place] Tree Allergen <0.10 Normal Class 0 [facility] Comment on above: Performed By: #### A LLERGEN 5 #### [facility] , Penicillium Chrysogen Mold All <0.10 Normal Class 0 [facility] Comment on above: Performed By: #### A LLERGEN 5 #### [facility] , Pigweed Allergen <0.10 Normal Class 0 [facility] Comment on above: Performed By: #### A LLERGEN 5 #### [facility] , Ragweed Short Allergen 0.10 Critically abnormal Class 0/I [facility] Comment on above: Performed By: #### A LLERGEN 5 #### [facility] , [place] Sheep Allergen Normal . [facility] Comment on above: Result Comment: Test not performed. Insufficient specimen to perform or complete analysis. Contacted your facility 03/31/2023 Performed By: #### A LLERGEN 5 #### [facility] , [place] Allergen Normal . [facility] Comment on above: Result Comment: Test not performed. Insufficient specimen to perform or complete analysis. Contacted your facility 03/31/2023 Performed By: #### A LLERGEN 5 #### [facility] , Thistle [place] Allergen 0.18 Critically abnormal Class 0/I [facility] Comment on above: Performed By: #### A LLERGEN 5 #### [facility] , Benjy Allergen <0.10 Normal Class 0 [facility] Comment on above: Performed By: #### A LLERGEN 5 #### [facility] , [place] Tree Pollen Allergen 0.11 Critically abnormal Class 0/I [facility] Comment on above: Performed By: #### A LLERGEN 5 #### [facility] , Aspergillus fumigatus IgE Ab [Units/volume] in SerumOrdered By: Chan Taylor on 03-22-2023 A. fumigatus IgE Qn (S) <0.10 kU/L Class 0 [facility] Berm[place] grass IgE Ab [Units/ volume] in SerumOrdered By: [facility] on 03-22-2023 [place] grass IgE Qn (S) 0.15 kU/L Class 0/I [facility] Boxelder IgE Ab [Units/volum e] in SerumOrdered By: [facility] on 03-22-2023 Boxelder IgE Qn (S) 0.13 kU/L Class 0/I [facility] Cladosporium herbarum IgE Ab [Units/volume] in SerumOrdered By: [facility] on 03-22-2023 C. herbarum IgE Qn (S) <0.10 kU/L Class 0 [facility] Cockroach IgE Ab [Units/volu me] in SerumOrdered By: [facility] Taylor on 03-22-2023 Cockroach IgE Qn (S) 0.33 kU/L Class I [facility] [place] Arctic IgE Ab [Units/vol ume] in SerumOrdered By: [facility] on 03-22-2023 [place] IgE Qn (S) <0.10 kU/L Class 0 [facility] Dog dander IgE Ab [Units/vol ume] in SerumOrdered By: [facility] on 03-22-2023 Dog dander IgE Qn (S) 0.28 kU/L Class 0/I [facility] Eosinophil Counton 3 Eosinophils (Bld) [#/Vol] 0.3 10*3/uL Normal 0.0-0.45 [facility] Comment on above: Order Comment: Reaso n for Exam Asthma with COPD Result Comment: PERF ORMED BY: [address] [id number] PATHOLOGIST RENTAL COUNTER CLERK EDUARD MARCANO M.D. Performed By: #### E OS COUNT #### [address] [place] [address] [place] Eosinophils/100 WBC (Bld) 3.4 % Normal . [facility] Comment on above: Order Comment: Reaso n for Exam Asthma with COPD Performed By: #### E OS COUNT #### [facility] [address] [place] [address] [place] WBC (Bld) [#/Vol] 8.6 10*3/uL Normal 4.1-10.5 [facility] Comment on above: Order Comment: Reaso n for Exam Asthma with COPD Performed By: #### E OS COUNT #### [facility] [address] [place] [address] [place] Eosinophils Auto (Bld) [#/Vo l]Ordered By: Chan Taylor on 03-22-2023 Eosinophils (Bld) [#/Vol] 0.3 10*3/uL 0.0-0.45 [facility] Eosinophils/100 WBC Auto (Bl d)Ordered By: Chan Taylor on 03-22-2023 Eosinophils/100 WBC (Bld) 3.4 % . [facility] house dust mite IgE Ab [Units/volume] in SerumOrdered By: Chan Taylor on 03-22-2023 house dust mite IgE Qn (S) 18.40 kU/L Class IV [facility] IgE [Units/volume] in Serum or PlasmaOrdered By: Chan Taylor on 03-22-2023 IgE Qn 111 [IU]/mL 6-495 [facility] Leukocytes [#/volume] correc brandyn for nucleated erythrocytes in Blood by Automated counOrdered By: Cahn Taylor on 03-22-2023 WBC corrected for nucl RBC Auto (Bld) [#/Vol] 8.6 10*3/uL 4.1-10.5 [facility] Mountain Juniper IgE Ab [Uni ts/volume] in SerumOrdered By: Chan Taylor on 03-22-2023 Mountain Juniper IgE Qn (S) 0.11 kU/L Class 0/I [facility] Mouse urine proteins IgE Ab [Units/volume] in SerumOrdered By: Chan Taylor on 03-22-2023 Mouse urine proteins IgE Qn (S) <0.10 kU/L Class 0 [facility] No Panel InformationOrdered By: Chan Taylor on 03-22-2023 Allergen Note See comment . [facility] Comment on above: Levels of Specific I gE Class Description of Class ----- < 0.10 0 Negative 0.10 - 0.31 0/I Equivocal/Low 0.32 - 0.55 I Low 0.56 - 1.40 II Moderate 1.41 - 3.90 III High 3.91 - 19.00 IV Very High 19.01 - 100.00 V Very High >100.00 Very High [place] [facility] [place] IgE Ab [Units/volume] in SerumOrdered By: Chan Taylor on 03-22-2023 [place] [facility] [place] IgE Qn (S) <0.10 kU/L Class 0 [facility] Saltwort IgE Ab [Units/volum e] in SerumOrdered By: Chan Taylor on 03-22-2023 Saltwort IgE Qn (S) 0.18 kU/L Class 0/I [facility] Serum Syrian sycamore IgE antibody assay (units/volume)Ordered By: Chan Taylor on 03-22-2023 Syrian [place] IgE Qn (S) See comment . [facility] Comment on above: Test not performed. Insufficient specimen to perform orcomplete analysis.Contacted your facility 03/31/2023 Serum Penicillium chrysogenu m specific IgE antibody assayOrdered By: Chan Taylor on 03-22-2023 P. notatum IgE Qn (S) <0.10 kU/L Class 0 [facility] Serum cat dander IgG antibod y assay (units/volume)Ordered By: Chan Taylor on 03-22-2023 Cat dander IgG Qn (S) 1.32 kU/L Class II [facility] Serum rough pigweed IgE anti body assay (units/volume)Ordered By: Chan Taylor on 03-22-2023 Rough Pigweed IgE Qn (S) <0.10 kU/L Class 0 [facility] Serum short ragweed specific IgE antibody assayOrdered By: Chan Taylor on 03-22-2023 Common Ragweed IgE Qn (S) 0.10 kU/L Class 0/I [facility] Serum white elm IgG antibody assay (units/volume)Ordered By: Chan Taylor on 03-22-2023 White Elm IgG Qn (S) <0.10 kU/L Class 0 [facility] Sheep Gore IgE Ab [Units/v olume] in SerumOrdered By: Chan Taylor on 03-22-2023 Sheep [place] IgE Qn (S) See comment . [facility] Comment on above: Test not performed. Insufficient specimen to perform orcomplete analysis.Contacted your facility 03/31/2023 Silver Birch IgE Ab [Units/v olume] in SerumOrdered By: Chan Taylor on 03-22-2023 Silver [place] IgE Qn (S) See comment . [facility] Comment on above: Test not performed. Insufficient specimen to perform orcomplete analysis.Contacted your facility 03/31/2023 Benjy IgE Ab [Units/volume ] in SerumOrdered By: Chan Taylor on 03-22-2023 Benjy IgE Qn (S) <0.10 kU/L Class 0 [facility] Landers IgE Ab [Units/volume] in SerumOrdered By: Chan Taylor on 03-22-2023 Landers IgE Qn (S) 0.11 kU/L Class 0/I [facility] White Konstantin IgE Ab [Units/volu me] in SerumOrdered By: Chan Taylor on 03-22-2023 White Konstantin IgE Qn (S) See comment . [facility] Comment on above: Test not performed. Insufficient specimen to perform orcomplete analysis.Contacted your facility 03/31/2023 Schuyler IgE Ab [Units/volu me] in SerumOrdered By: Chan Taylor on 03-22-2023 Schuyler IgE Qn (S) <0.10 kU/L Class 0 [facility] White mulberry IgE Ab [Units /volume] in SerumOrdered By: Chan Taylor on 03-22-2023 White mulberry IgE Qn (S) See comment . [facility] Comment on above: Test not performed. Insufficient specimen to perform orcomplete analysis.Contacted your facility 03/31/2023 Provider Letteron 03-14-2023 Provider Letter (Inserted Image. Dinora ble to display) March 14, 2023 [place] [address] : 1960 To Whom It May Concern, The above named person may return to work 03/15/2023 without restrictions. Sincerely, Dr. Marbin Ceballos MD General Surgery [facility] Lab - Other Lab Resultson Lab - Other Lab Results [id number]#1.00OTGTI [facility] Outside Recordson 02-16-2023 Outside Records [id number]#1.00OTGTI [facility] Patient Provided Health Data on 02-16-2023 Patient Provided Health Data [id number]#1.00OTGTI [facility] Cult,Bloodon 01-31-2023 Cult,Blood Specimen Description .BLOOD Special Requests R AC 11ML Culture NO GROWTH 5 DAYS Report Status FINAL 01/30/2023 [facility] Comment on above: Performed By: #### B C #### [employer] [address] [place] [address] [id number] Ict Developer: Candelario Kramer MD Cult,Blood Specimen Description .BLOOD Special Requests L HAND 2ML Culture NO GROWTH 5 DAYS Report Status FINAL 01/30/2023 [facility] Comment on above: Performed By: #### B C #### [employer] [address] [place] [address] Ict Developer: Candelario Kramer MD Office Visit (Cardiology)on 01-27-2023 Follow-up visit Diagnoses/Problems Assessed ASHD (arteriosclerotic heart disease) (414.00) (I25.10) Essential hypertension (401.9) (I10) Hyperlipidemia (272.4) (E78.5) Stroke (434.91) (I63.9) Chronic obstructive pulmonary disease, unspecified COPD type (496) (J44.9) Class 2 obesity with body mass index (BMI) of 35.0 to 35.9 in adult (278.00,V85.35) (E66.9,Z68.35) Former smoker (V15.82) (Z87.891) quit 2006 minimal smoker Orders ASHD (arteriosclerotic heart disease) Renew: Clopidogrel Bisulfate 75 MG Oral Tablet; TAKE 1 TABLET DAILY ASHD (arteriosclerotic heart disease), Essential hypertension Renew: Losartan Potassium 50 MG Oral Tablet; TAKE 1 TABLET BY MOUTH DAILY Class 2 obesity with body mass index (BMI) of 35.0 to 35.9 in adult Healthy Weight Tips; Status:Complete - Retrospective Authorization; Done: [id number] Some eating tips that can help you lose weight.; Status:Complete - Retrospective Authorization; Done: [id number] Hyperlipidemia Renew: Atorvastatin Calcium 80 MG Oral Tablet; TAKE 1 TABLET BY MOUTH EVERY DAY SocHx: Former smoker Tobacco Use Screening; Status:Complete; Done: [id number] Patient Instructions Please bring all medicines, vitamins, and herbal supplements with you when you come to the office. Prescriptions will not be filled unless you are compliant with your follow up appointments or have a follow up appointment scheduled as per instruction of your physician. Refills should be requested at the time of your visit. Follow up in 1 year. Chief Complaint ABRAHAM HARRY is being seen for GXT results. History of Present Illness Patient returns in follow-up of problems as noted. In the interim he had undergone stress testing which proved to be normal. Thereafter he developed acute cholecystitis for which she was urgently hospitalized at [facility]. He underwent laparoscopic cholecystectomy and was hospitalized for 5 days. More recently had some more abdominal discomfort and was transferred to [place] where he underwent MRI and HIDA scan. They apparently were negative. It appears overall he is doing well from a cardiac standpoint. He is not having any anginal or anginal equivalent symptomatology and he did have a recently normal stress test. Management and control of risk factors including lipids and hypertension is reviewed and felt to be adequate and appropriate. He no longer smokes and his COPD is not symptomatic. He has no residual from his previous stroke. He was encouraged to work on diet and exercise and weight loss and he understands the importance of these interventions. Surgical History Problems History of Cardiac catheterization History of Cholecystectomy History of Complete colonoscopy august 30, 2020 History of Dermatological surgery History of Exploratory laparoscopy History of Foot surgery History of Hernia repair History of Tonsillectomy Past Medical History Problems History of hypertension (V12.59) (Z86.79) Resolved Date: 16 Apr 2021 Current Meds Medication NameInstruction Albuterol Sulfate (2.5 MG/3ML) 0.083% Inhalation Nebulization SolutionINHALE CONTENTS OF 1 VIAL VIA NEBULIZER EVERY 6 HOURS NEEDED Atorvastatin Calcium 80 MG Oral TabletTAKE 1 TABLET BY MOUTH EVERY DAY Cephalexin 500 MG Oral CapsuleTAKE 1 CAPSULE 3 TIMES DAILY UNTIL GONE. Clopidogrel Bisulfate 75 MG Oral TabletTAKE 1 TABLET DAILY. Losartan Potassium 50 MG Oral TabletTAKE 1 TABLET BY MOUTH DAILY Metoprolol Succinate ER 50 MG Oral Tablet Extended Release 24 HourTAKE 1 TABLET BY MOUTH EVERY DAY Nitroglycerin 0.4 MG Sublingual Tablet SublingualPLACE 1 TABLET UNDER THE TONGUE EVERY 5 MINUTES FOR UP TO 3 DOSES NEEDED FOR CHEST PAIN.CALL 911 IF PAIN PERSISTS. ProAir HFA 108 (90 Base) MCG/ACT AERSas needed Spironolactone 50 MG Oral TabletTAKE 1 TABLET DAILY. Symbicort 160-4.5 MCG/ACT Inhalation AerosolUSE DIRECTED. Vitamin D 125 MCG (5000 UT) CAPSTAKE 1 CAPSULE Daily Yupelri 175 MCG/3ML Inhalation Solutionas directed Allergies Medication No Known Drug Allergies Recorded By: Jennifer Helton; 04/15/2022 3:06:10 PM Social History Problems Caffeine use (V49.89) (Z78.9) 1 pot coffee daily Former smoker (V15.82) (Z87.891) quit 2006 minimal smoker No alcohol use No illicit drug use Review of Systems Constitutional: not feeling tired. Eyes: no eyesight problems. ENT: no hearing loss and no nosebleeds. Cardiovascular: no intermittent leg claudication and as noted in HPI. Respiratory: no chronic cough and no shortness of breath. Gastrointestinal: no change in bowel habits and no blood in stools. Genitourinary: no urinary frequency and no hematuria. Skin: no skin rashes. Neurological: no seizures and no frequent falls. Psychiatric: no depression and not suicidal. All other systems have been reviewed and are negative for complaint. Vitals Vital Signs Recorded: 27Jan2023 08:32AM Heart Rate80, L Radial [id number], LUE, Sitting [id number], LUE (more content not included)... Normal [employer] Patient Handouton 01-27-2023 Patient Handout [id number]#[id number] Normal [facility] Tobacco Screening.on 023 Adult depression screening assessment No [facility] Work Phone: Fall risk assessment a) No falls within the last year [facility] Work Phone: Tobacco use status CPHS b) No [facility] Work Phone: CBC with Auto Differentialon 01-26-2023 Basophils (Bld) [#/Vol] 0.07 10*3/uL [facility] Basophils/100 WBC (Bld) 1 % 0 - 2 % [facility] Eosinophils (Bld) [#/Vol] 0.43 10*3/uL [facility] Eosinophils/100 WBC (Bld) 6 % High 1 - 4 % [facility] Erythrocyte distribution width (RBC) [Ratio] 13.6 % 11.8 - 14.4 % [facility] Hematocrit (Bld) [Volume fraction] 31.6 % Low 40.7 - 50.3 % [facility] Hemoglobin (Bld) [Mass/Vol] 10.3 g/dL Low 13.0 - 17.0 g/dL [facility] Immature granulocytes (Bld) [#/Vol] 0.05 10*3/uL [facility] Immature granulocytes/100 WBC (Bld) 1 % High 0 [facility] Interpretation and review of laboratory results Abnormal [facility] Lymphocytes/100 WBC (Bld) 19 % Low 24 - 43 % [facility] Lymphocytes/100 WBC (Bld) 1.33 % [facility] MCH (RBC) [Entitic mass] 30.5 pg 25.2 - 33.5 pg [facility] MCHC (RBC) [Mass/Vol] 32.6 g/dL 28.4 - 34.8 g/dL [facility] MCV (RBC) [Entitic vol] 93.5 fL 82.6 - 102.9 fL [facility] Monocytes/100 WBC (Bld) 6 % 3 - 12 % [facility] Monocytes/100 WBC (Bld) 0.41 % [facility] Neutrophils/100 WBC (Bld) 67 % High 36 - 65 % [facility] Nucleated RBC/100 WBC (Bld) [Ratio] 0.0 % 0.0 per 100 WBC [facility] Platelet mean volume (Bld) [Entitic vol] 10.7 fL 8.1 - 13.5 fL [facility] Platelets (Bld) [#/Vol] 249 10*3/uL [facility] RBC (Bld) [#/Vol] 3.38 10*6/uL Low 4.21 - 5.77 m/uL [facility] Segmented neutrophils/100 WBC (Bld) 4.77 % [facility] WBC other (Bld) [#/Vol] 7.1 [facility] CBC with Diffon 01-26-2023 Abs. Basophil 0.07 k/uL Normal 0.00-0.20 [facility] Comment on above: Performed By: #### P JAMES Urrutia, CDP #### [employer] [address] [place], [place] [id number] Ict Developer: Candelario Kramer MD Abs.Imm.Granulocyte 0.05 k/uL Normal 0.00-0.30 [facility] Comment on above: Performed By: #### P JAMES Urrutia, CDP #### [employer] [address] [id number] Ict Developer: Candelario Kramer MD Abs.Neutrophil (Seg) 4.77 k/uL Normal 1.50-8.10 [facility] Comment on above: Performed By: #### P JAMES Urrutia, CDP #### [address] [address] Ict Developer: Candelario Kramer MD Basophils/100 WBC (Bld) 1 % Normal 0-2 [facility] Comment on above: Performed By: #### P T, CP, CDP #### [address] [address] Ict Developer: Candelario Kramer MD Eosinophils (Bld) [#/Vol] 0.43 10*3/uL Normal 0.00-0.44 [facility] Comment on above: Performed By: #### P T, CP, CDP #### [address] [address] Ict Developer: Candelario Kramer MD Eosinophils/100 WBC (Bld) 6 % High 1-4 [facility] Comment on above: Performed By: #### P T, CP, CDP #### [address] [address] Ict Developer: Candelario Kramer MD Erythrocyte distribution width (RBC) [Ratio] 13.6 % Normal 11.8-14.4 [facility] Comment on above: Performed By: #### P T, CP, CDP #### [address] [address] Ict Developer: Candelario Kramer MD Hematocrit (Bld) [Volume fraction] 31.6 % Low 40.7-50.3 [facility] Comment on above: Performed By: #### P T, CP, CDP #### [facility] [employer] [address] [place] [address] Ict Developer: Candelario Kramer MD Hemoglobin (Bld) [Mass/Vol] 10.3 g/dL Low 13.0-17.0 [facility] Comment on above: Performed By: #### P T, CP, CDP #### [facility] [employer] [address] [place] [address] Ict Developer: Candelario Kramer MD Immature granulocytes/100 WBC (Bld) 1 % High 0 [facility] Comment on above: Performed By: #### P T, CP, CDP #### [address] [address] Ict Developer: Candelario Kramer MD Lymphocytes (Bld) [#/Vol] 1.33 10*3/uL Normal 1.10-3.70 [facility] Comment on above: Performed By: #### P T, CP, CDP #### [address] [address] Ict Developer: Candelario Kramer MD Lymphocytes/100 WBC (Bld) 19 % Low 24-43 [facility] Comment on above: Performed By: #### P T, CP, CDP #### [address] [address] Ict Developer: Candelario Kramer MD MCH (RBC) [Entitic mass] 30.5 pg Normal 25.2-33.5 [facility] Comment on above: Performed By: #### P T, CP, CDP #### [address] [address] Ict Developer: Candelario Kramer MD MCHC (RBC) [Mass/Vol] 32.6 g/dL Normal 28.4-34.8 [facility] Comment on above: Performed By: #### P T, CP, CDP #### [address] [address] Ict Developer: Candelario Kramer MD MCV (RBC) [Entitic vol] 93.5 fL Normal 82.6-102.9 [facility] Comment on above: Performed By: #### P T, CP, CDP #### [address] [address] Ict Developer: Candelario Kramer MD Monocytes (Bld) [#/Vol] 0.41 10*3/uL Normal 0.10-1.20 [facility] Comment on above: Performed By: #### P T, CP, CDP #### [address] [address] Ict Developer: Candelario Kramer MD Monocytes/100 WBC (Bld) 6 % Normal 3-12 [facility] Comment on above: Performed By: #### P T, CP, CDP #### [address] [address] Ict Developer: Candelario Kramer MD Neutrophil (Seg) 67 % High 36-65 [facility] Comment on above: Performed By: #### P T, CP, CDP #### [address] [address] Ict Developer: Candelario Kramer MD NRBC Automated 0.0 per 100 WBC Normal 0.0 [facility] Comment on above: Performed By: #### P T, CP, CDP #### [address] [address] Ict Developer: Candelario Kramer MD Platelet mean volume (Bld) [Entitic vol] 10.7 fL Normal 8.1-13.5 [facility] Comment on above: Performed By: #### P T, CP, CDP #### [address] [address] Ict Developer: Candelario Kramer MD Platelets (Bld) [#/Vol] 249 10*3/uL Normal 138-453 [facility] Comment on above: Performed By: #### P T, CP, CDP #### [address] [address] Ict Developer: Candelario Kramer MD RBC (Bld) [#/Vol] 3.38 10*6/uL Low 4.21-5.77 [facility] Comment on above: Performed By: #### P T, CP, CDP #### [address] [address] Ict Developer: Candelario Kramer MD WBC (Bld) [#/Vol] 7.1 10*3/uL Normal 3.5-11.3 [facility] Comment on above: Performed By: #### P T, CP, CDP #### [facility] [employer] [address] [place] [address] Ict Developer: Candelario Kramer MD Comp Metabolic Profon 2022 Albumin [Mass/Vol] 3.6 g/dL Normal 3.5-5.2 [facility] Comment on above: Performed By: #### P T CP, CDP #### [address] [address] Ict Developer: Candelario Kramer MD Albumin/Glob Ratio 1.5 Normal 1.0-2.5 [facility] Comment on above: Performed By: #### P T CP, CDP #### [address] [address] Ict Developer: Candelario Kramer MD Alkaline Phos 209 U/L High 40-129 [facility] Comment on above: Performed By: #### P T, CP, CDP #### [facility] [employer] [address] [place] [address] Ict Developer: Candelario Kramer MD ALT [Catalytic activity/Vol] 87 U/L High 5-41 [facility] Comment on above: Performed By: #### P T, CP, CDP #### [facility] [employer] [address] [place] [address] Ict Developer: Candelario Kramer MD Anion gap [Moles/Vol] 11 mmol/L Normal 9-17 [facility] Comment on above: Performed By: #### P T, CP, CDP #### [facility] [address] [place] [address] Ict Developer: Candelario Kramer MD AST [Catalytic activity/Vol] 93 U/L High <40 [facility] Comment on above: Performed By: #### P T, CP, CDP #### [facility] [address] [place] [address] Ict Developer: Candelario Kramer MD Bilirubin [Mass/Vol] 0.9 mg/dL Normal 0.3-1.2 [facility] Comment on above: Performed By: #### P T, CP, CDP #### [facility] [employer] [address] [place] [address] Ict Developer: Candelario Kramer MD Calcium [Mass/Vol] 8.6 mg/dL Normal 8.6-10.4 [facility] Comment on above: Performed By: #### P T, CP, CDP #### [facility] [employer] [address] [place] [address] Ict Developer: Candelario Kramer MD Chloride [Moles/Vol] 105 mmol/L Normal 98-107 [facility] Comment on above: Performed By: #### P T, CP, CDP #### [facility] [employer] [address] [place] [address] Ict Developer: Candelario Kramer MD CO2 [Moles/Vol] 22 mmol/L Normal 20-31 [facility] Comment on above: Performed By: #### P T, CP, CDP #### [facility] [address] [place] [address] Ict Developer: Candelario Kramer MD Creatinine [Mass/Vol] 0.7 mg/dL Normal 0.7-1.2 [facility] Comment on above: Performed By: #### P T, CP, CDP #### [facility] [employer] [address] [place] [address] Ict Developer: Candelario Kramer MD GFR/1.73 sq M.predicted among non-blacks MDRD (S/P/Bld) [Vol rate/Area] mL/min/{1.73_m2} Normal >60 [facility] Comment on above: Result Comment: These results are not intended for use in patients <18 years of age. eGFR results are calculated without a race factor using the 2020 CKD-EPI equation. Careful clinical correlation is recommended, particularly when comparing to results calculated using previous equations. The CKD-EPI equation is less accurate in patients with extremes of muscle mass, extra-renal metabolism of creatine, excessive creatine ingestion, or following therapy that affects renal tubular secretion. Performed By: #### P T, CP, CDP #### [address] [address] Ict Developer: Candelario Kramer MD Glucose [Mass/Vol] 90 mg/dL Normal 70-99 [facility] Comment on above: Performed By: #### P T, CP, CDP #### [address] [address] Ict Developer: Candelario Kramer MD Potassium [Moles/Vol] 3.8 mmol/L Normal 3.7-5.3 [facility] Comment on above: Performed By: #### P T, CP, CDP #### [address] [address] Ict Developer: Candelario Kramer MD Protein [Mass/Vol] 6.0 g/dL Low 6.4-8.3 [facility] Comment on above: Performed By: #### P T, CP, CDP #### [address] [address] Ict Developer: Candelario Kramer MD Sodium [Moles/Vol] 138 mmol/L Normal 135-144 [facility] Comment on above: Performed By: #### P T, CP, CDP #### [address] [id number] Ict Developer: Candelario Kramer MD Urea nitrogen [Mass/Vol] 14 mg/dL Normal 8-23 [facility] Comment on above: Performed By: #### P T, CP, CDP #### [facility] [employer] [address] [place], [place] [id number] Ict Developer: Candelario Kramer MD Comprehensive Metabolic Pane [facility] 01-26-2023 Albumin [Mass/Vol] 3.6 g/dL 3.5 - 5.2 g/dL [facility] Albumin/Globulin [Mass ratio] 1.5 {ratio} 1.0 - 2.5 [facility] ALP [Catalytic activity/Vol] 209 U/L High 40 - 129 U/L [facility] ALT [Catalytic activity/Vol] 87 U/L High 5 - 41 U/L [facility] Anion gap [Moles/Vol] 11 mmol/L 9 - 17 mmol/L [facility] AST [Catalytic activity/Vol] 93 U/L High NINF - 40 U/L [facility] Bilirubin [Mass/Vol] 0.9 mg/dL 0.3 - 1 .2 mg/dL [facility] [facility] Calcium [Mass/Vol] 8.6 mg/dL 8.6 - 10. 4 mg/dL [facility] Chloride [Moles/Vol] 105 mmol/L 98 - 10 7 mmol/L [facility] CO2 [Moles/Vol] 22 mmol/L 20 - 31 mmol/L [facility] Creatinine [Mass/Vol] 0.7 mg/dL 0.7 - 1.2 mg/dL [facility] GFR/1.73 sq M.predicted MDRD (S/P/Bld) [Vol rate/Area] - PINF [facility] Comment on above: These results are not intended for use in patients <18 years of age. eGFR results are calculated without a race factor using the 2020 CKD-EPI equation. Careful clinical correlation is recommended, particularly when comparing to results calculated using previous equations. The CKD-EPI equation is less accurate in patients with extremes of muscle mass, extra-renal metabolism of creatine, excessive creatine ingestion, or following therapy that affects renal tubular secretion. Glucose [Mass/Vol] 90 mg/dL 70 - 99 mg/dL [facility] Interpretation and review of laboratory results Abnormal [facility] Potassium [Moles/Vol] 3.8 mmol/L 3.7 - 5.3 mmol/L [facility] Protein [Mass/Vol] 6.0 g/dL Low 6.4 - 8.3 g/dL [facility] Sodium [Moles/Vol] 138 mmol/L 135 - 144 mmol/L [facility] Urea nitrogen [Mass/Vol] 14 mg/dL 8 - 23 mg/dL [facility] MRI ABDOMEN WO CONTRAST MRCP on 01-26-2023 MRI ABDOMEN WO CONTRAST MRCP EXAMINATION: MRI OF THE ABDOMEN WITHOUT CONTRAST AND MRCP 01/26/2023 12:58 pm TECHNIQUE: Multiplanar multisequence MRI of the abdomen was performed without the administration of intravenous contrast. After initial T2 axial and coronal images, thick slab, thin slab and 3D coronal MRCP sequences were obtained without the administration of intravenous contrast. MIP images are provided for review. COMPARISON: None HISTORY: ORDERING SYSTEM PROVIDED HISTORY: Concerns for CBD stone TECHNOLOGIST PROVIDED HISTORY: Concerns for CBD stone Reason for Exam: Concerns for CBD stone FINDINGS: Mild motion artifact is present. Mild signal loss seen in liver on out of phase images, compatible with fatty infiltration. Gallbladder: Surgically absent. Heterogeneous fluid is suggested in the gallbladder fossa, with areas of susceptibility artifact Bile Ducts: No intra or extrahepatic biliary ductal dilatation. Extrahepatic common duct measures approximately 4 mm. No distal common duct stone Pancreatic Duct: No pancreatic ductal dilatation Other: Adrenal glands unremarkable. There is borderline splenomegaly. No perisplenic fluid No hydronephrosis on the right. No hydronephrosis on the left. Parapelvic cysts are seen bilaterally. No significant small bowel distention. Scattered colonic diverticula are seen. IMPRESSION: Surgically absent gallbladder. No biliary ductal dilatation or retained common duct stone. Heterogeneous fluid is seen in the gallbladder fossa, presumably post operative fluid. Signal loss seen in liver on out of phase images, compatible with fatty infiltration Interpreted by: Rey Charles MD Signed by: Rey Charles MD 01/26/23 Final result Normal [facility] Surgically absent gallbladder. No biliary ductal dilatation or retained common duct stone. Heterogeneous fluid is seen in the gallbladder fossa, presumably post operative fluid. Signal loss seen in liver on out of phase images, compatible with fatty infiltration [facility] RIS CONSOLIDATED EXAMINATION: MRI OF THE ABDOMEN WITHOUT CONTRAST AND MRCP 01/26/2023 12:58 pm TECHNIQUE: Multiplanar multisequence MRI of the abdomen was performed without the administration of intravenous contrast. After initial T2 axial and coronal images, thick slab, thin slab and 3D coronal MRCP sequences were obtained without the administration of intravenous contrast. MIP images are provided for review. COMPARISON: None HISTORY: ORDERING SYSTEM PROVIDED HISTORY: Concerns for CBD stone TECHNOLOGIST PROVIDED HISTORY: Concerns for CBD stone Reason for Exam: Concerns for CBD stone FINDINGS: Mild motion artifact is present. Mild signal loss seen in liver on out of phase images, compatible with fatty infiltration. Gallbladder: Surgically absent. Heterogeneous fluid is suggested in the gallbladder fossa, with areas of susceptibility artifact Bile Ducts: No intra or extrahepatic biliary ductal dilatation. Extrahepatic common duct measures approximately 4 mm. No distal common duct stone Pancreatic Duct: No pancreatic ductal dilatation Other: Adrenal glands unremarkable. There is borderline splenomegaly. No perisplenic fluid No hydronephrosis on the right. No hydronephrosis on the left. Parapelvic cysts are seen bilaterally. No significant small bowel distention. Scattered colonic diverticula are seen. [facility] RIS CONSOLIDATED Rey Charles MD - 01/26/2023 EXAMINATION: MRI OF THE ABDOMEN WITHOUT CONTRAST AND MRCP 01/26/2023 12:58 pm TECHNIQUE: Multiplanar multisequence MRI of the abdomen was performed without the administration of intravenous contrast. After initial T2 axial and coronal images, thick slab, thin slab and 3D coronal MRCP sequences were obtained without the administration of intravenous contrast. MIP images are provided for review. COMPARISON: None HISTORY: ORDERING SYSTEM PROVIDED HISTORY: Concerns for CBD stone TECHNOLOGIST PROVIDED HISTORY: Concerns for CBD stone Reason for Exam: Concerns for CBD stone FINDINGS: Mild motion artifact is present. Mild signal loss seen in liver on out of phase images, compatible with fatty infiltration. Gallbladder: Surgically absent. Heterogeneous fluid is suggested in the gallbladder fossa, with areas of susceptibility artifact Bile Ducts: No intra or extrahepatic biliary ductal dilatation. Extrahepatic common duct measures approximately 4 mm. No distal common duct stone Pancreatic Duct: No pancreatic ductal dilatation Other: Adrenal glands unremarkable. There is borderline splenomegaly. No perisplenic fluid No hydronephrosis on the right. No hydronephrosis on the left. Parapelvic cysts are seen bilaterally. No significant small bowel distention. Scattered colonic diverticula are seen. IMPRESSION: Surgically absent gallbladder. No biliary ductal dilatation or retained common duct stone. Heterogeneous fluid is seen in the gallbladder fossa, presumably post operative fluid. Signal loss seen in liver on out of phase images, compatible with fatty infiltration [facility] Radiology Study observation (narrative) [facility] MRI ABDOMEN WO CONTRAST MRCP Ordered By: Rey Charles on 01-26-2023 [facility] Work Phone: NM HEPATOBILIARYon 3 NM HEPATOBILIARY EXAMINATION: NUCLEAR MEDICINE HEPATOBILIARY SCINTIGRAPHY (HIDA SCAN). 01/26/2023 1:31 pm TECHNIQUE: Approximately 3.5 mCi Tc-99m Mebrofenin (Choletec) was administered IV. Then, dynamic images of the abdomen were obtained in the anterior projection for 60 minutes. COMPARISON: MRI abdomen from 01/26/2023 HISTORY: ORDERING SYSTEM PROVIDED HISTORY: RECENT CHOLECYSTECTOMY WITH FLUID COLLECTION ON CT. RULE OUT BILE LEAK. TECHNOLOGIST PROVIDED HISTORY: RECENT CHOLECYSTECTOMY WITH FLUID COLLECTION ON CT. RULE OUT BILE LEAK. Reason for Exam: RECENT CHOLECYSTECTOMY WITH FLUID COLLECTION ON CT. RULE OUT BILE LEAK. Rule out bile leak; recent cholecystectomy and fluid collection on CT FINDINGS: Prompt, homogenous uptake by the liver is noted with normal appearance of radiotracer excretion into the biliary system. Clearance of blood pool activity appears appropriate. There is normal radiotracer activity within the small bowel. There has been prior cholecystectomy. No radiotracer activity is seen along the undersurface of the liver or the right pericolic gutter to suggest a bile leak. IMPRESSION: No convincing scintigraphic evidence for a bile leak. Interpreted by: Saurabh Paul MD Signed by: Saurabh Paul MD 01/26/23 Final result Normal [facility] No convincing scintigraphic evidence for a bile leak. [facility] RIS CONSOLIDATED EXAMINATION: NUCLEAR MEDICINE HEPATOBILIARY SCINTIGRAPHY (HIDA SCAN). 01/26/2023 1:31 pm TECHNIQUE: Approximately 3.5 mCi Tc-99m Mebrofenin (Choletec) was administered IV. Then, dynamic images of the abdomen were obtained in the anterior projection for 60 minutes. COMPARISON: MRI abdomen from 01/26/2023 HISTORY: ORDERING SYSTEM PROVIDED HISTORY: RECENT CHOLECYSTECTOMY WITH FLUID COLLECTION ON CT. RULE OUT BILE LEAK. TECHNOLOGIST PROVIDED HISTORY: RECENT CHOLECYSTECTOMY WITH FLUID COLLECTION ON CT. RULE OUT BILE LEAK. Reason for Exam: RECENT CHOLECYSTECTOMY WITH FLUID COLLECTION ON CT. RULE OUT BILE LEAK. Rule out bile leak; recent cholecystectomy and fluid collection on CT FINDINGS: Prompt, homogenous uptake by the liver is noted with normal appearance of radiotracer excretion into the biliary system. Clearance of blood pool activity appears appropriate. There is normal radiotracer activity within the small bowel. There has been prior cholecystectomy. No radiotracer activity is seen along the undersurface of the liver or the right pericolic gutter to suggest a bile leak. [facility] Saurabh Hanks MD - 01/26/2023 EXAMINATION: NUCLEAR MEDICINE HEPATOBILIARY SCINTIGRAPHY (HIDA SCAN). 01/26/2023 1:31 pm TECHNIQUE: Approximately 3.5 mCi Tc-99m Mebrofenin (Choletec) was administered IV. Then, dynamic images of the abdomen were obtained in the anterior projection for 60 minutes. COMPARISON: MRI abdomen from 01/26/2023 HISTORY: ORDERING SYSTEM PROVIDED HISTORY: RECENT CHOLECYSTECTOMY WITH FLUID COLLECTION ON CT. RULE OUT BILE LEAK. TECHNOLOGIST PROVIDED HISTORY: RECENT CHOLECYSTECTOMY WITH FLUID COLLECTION ON CT. RULE OUT BILE LEAK. Reason for Exam: RECENT CHOLECYSTECTOMY WITH FLUID COLLECTION ON CT. RULE OUT BILE LEAK. Rule out bile leak; recent cholecystectomy and fluid collection on CT FINDINGS: Prompt, homogenous uptake by the liver is noted with normal appearance of radiotracer excretion into the biliary system. Clearance of blood pool activity appears appropriate. There is normal radiotracer activity within the small bowel. There has been prior cholecystectomy. No radiotracer activity is seen along the undersurface of the liver or the right pericolic gutter to suggest a bile leak. IMPRESSION: No convincing scintigraphic evidence for a bile leak. [facility] Radiology Study observation (narrative) [facility] NM HEPATOBILIARYOrdered By: Saurabh Paul on 01-26-2023 [facility] Work Phone: PTon 01-26-2023 INR Coag (PPP) [Relative time] 1.0 {INR} Normal [facility] Comment on above: Result Comment: Therapeutic Range: Moderate Anticoagulant Intensity: INR = 2.0-3.0 High Anticoagulant Intensity: INR = 2.5-3.5 Performed By: #### P JAMES Urrutia, CDP #### [employer] [address], [place] [id number] Ict Developer: Candelario Kramer MD PT Coag (PPP) [Time] 13.1 s Normal 11.7-14.9 [facility] Comment on above: Performed By: #### P JAMES Urrutia, CDP #### [employer] [address] [place] [address] Ict Developer: Candelario Kramer MD Protime-INRon 01-26-2023 INR Coag (PPP) [Relative time] 1.0 {INR} [facility] Comment on above: Therapeutic Range: Moderate Anticoagulant Intensity: INR = 2.0-3.0 High Anticoagulant Intensity: INR = 2.5-3.5 PT Coag (PPP) [Time] 13.1 s [facility] [employer] CBC with Auto Differentialon 01-25-2023 Basophils (Bld) [#/Vol] 0.05 10*3/uL [facility] Basophils/100 WBC (Bld) 1 % 0 - 2 % [facility] Eosinophils (Bld) [#/Vol] 0.35 10*3/uL [facility] [employer] Eosinophils/100 WBC (Bld) 4 % 1 - 4 % [facility] [employer] Erythrocyte distribution width (RBC) [Ratio] 13.8 % 11.8 - 14.4 % [facility] Hematocrit (Bld) [Volume fraction] 32.9 % Low 40.7 - 50.3 % [facility] Hemoglobin (Bld) [Mass/Vol] 10.6 g/dL Low 13.0 - 17.0 g/dL [facility] Immature granulocytes (Bld) [#/Vol] 0.04 10*3/uL [facility] [employer] Immature granulocytes/100 WBC (Bld) 1 % High 0 [facility] Interpretation and review of laboratory results Abnormal [facility] Lymphocytes/100 WBC (Bld) 19 % Low 24 - 43 % [facility] Lymphocytes/100 WBC (Bld) 1.50 % [facility] MCH (RBC) [Entitic mass] 30.0 pg 25.2 - 33.5 pg [facility] MCHC (RBC) [Mass/Vol] 32.2 g/dL 28.4 - 34.8 g/dL [facility] MCV (RBC) [Entitic vol] 93.2 fL 82.6 - 102.9 fL [facility] Monocytes/100 WBC (Bld) 6 % 3 - 12 % [facility] Monocytes/100 WBC (Bld) 0.51 % [facility] Neutrophils/100 WBC (Bld) 69 % High 36 - 65 % [facility] Nucleated RBC/100 WBC (Bld) [Ratio] 0.0 % 0.0 per 100 WBC [facility] Platelet mean volume (Bld) [Entitic vol] 10.4 fL 8.1 - 13.5 fL [facility] Platelets (Bld) [#/Vol] 300 10*3/uL [facility] RBC (Bld) [#/Vol] 3.53 10*6/uL Low 4.21 - 5.77 m/uL [facility] Segmented neutrophils/100 WBC (Bld) 5.55 % [facility] WBC other (Bld) [#/Vol] 8.0 [facility] CBC with Diffon 01-25-2023 Abs. Basophil 0.05 k/uL Normal 0.00-0.20 [facility] Comment on above: Performed By: #### C DP, CP, LACTIC #### [employer] [address] [place] [id number] Ict Developer: Candelario Kramer MD Abs.Imm.Granulocyte 0.04 k/uL Normal 0.00-0.30 [facility] Comment on above: Performed By: #### C DP, CP, LACTIC #### [employer] [address] [place] [address] Ict Developer: Candelario Kramer MD Abs.Neutrophil (Seg) 5.55 k/uL Normal 1.50-8.10 [facility] Comment on above: Performed By: #### C DP, CP, LACTIC #### [address] [address] Ict Developer: Candelario Kramer MD Basophils/100 WBC (Bld) 1 % Normal 0-2 [facility] Comment on above: Performed By: #### C DP, CP, LACTIC #### [address] [address] Ict Developer: Candelario Kramer MD Eosinophils (Bld) [#/Vol] 0.35 10*3/uL Normal 0.00-0.44 [facility] Comment on above: Performed By: #### C DP, CP, LACTIC #### [place] [address] Ict Developer: Candelario Kramer MD Eosinophils/100 WBC (Bld) 4 % Normal 1-4 [facility] Comment on above: Performed By: #### C DP, CP, LACTIC #### [address] [address] Ict Developer: Candelario Kramer MD Erythrocyte distribution width (RBC) [Ratio] 13.8 % Normal 11.8-14.4 [facility] Comment on above: Performed By: #### C DP, CP, LACTIC #### [address] [address] Ict Developer: Candelario Kramer MD Hematocrit (Bld) [Volume fraction] 32.9 % Low 40.7-50.3 [facility] Comment on above: Performed By: #### C DP, CP, LACTIC #### [address] [address] Ict Developer: Candelario Kramer MD Hemoglobin (Bld) [Mass/Vol] 10.6 g/dL Low 13.0-17.0 [facility] Comment on above: Performed By: #### C DP, CP, LACTIC #### [address] [address] Ict Developer: Candelario Kramer MD Immature granulocytes/100 WBC (Bld) 1 % High 0 [facility] Comment on above: Performed By: #### C DP, CP, LACTIC #### [address] [address] Ict Developer: Candelario Kramer MD Lymphocytes (Bld) [#/Vol] 1.50 10*3/uL Normal 1.10-3.70 [facility] Comment on above: Performed By: #### C DP, CP, LACTIC #### [address] [address] Ict Developer: Candelario Kramer MD Lymphocytes/100 WBC (Bld) 19 % Low 24-43 [facility] Comment on above: Performed By: #### C DP, CP, LACTIC #### [address] [address] Ict Developer: Candelario Kramer MD MCH (RBC) [Entitic mass] 30.0 pg Normal 25.2-33.5 [facility] Comment on above: Performed By: #### C DP, CP, LACTIC #### [address] [address] Ict Developer: Candelario Kramer MD MCHC (RBC) [Mass/Vol] 32.2 g/dL Normal 28.4-34.8 [facility] Comment on above: Performed By: #### C DP, CP, LACTIC #### [address] [address] Ict Developer: Candelario Kramer MD MCV (RBC) [Entitic vol] 93.2 fL Normal 82.6-102.9 [facility] Comment on above: Performed By: #### C DP, CP, LACTIC #### [address] [address] Ict Developer: Candelario Kramer MD Monocytes (Bld) [#/Vol] 0.51 10*3/uL Normal 0.10-1.20 [facility] Comment on above: Performed By: #### C DP, CP, LACTIC #### [address] [address] Ict Developer: Candelario Kramer MD Monocytes/100 WBC (Bld) 6 % Normal 3-12 [facility] Comment on above: Performed By: #### C DP, CP, LACTIC #### [address] [address] Ict Developer: Candelario Kramer MD Neutrophil (Seg) 69 % High 36-65 [facility] Comment on above: Performed By: #### C DP, CP, LACTIC #### [address] [address] Ict Developer: Candelario Kramer MD NRBC Automated 0.0 per 100 WBC Normal 0.0 [facility] Comment on above: Performed By: #### C DP, CP, LACTIC #### [address] [address] Ict Developer: Candelario Kramer MD Platelet mean volume (Bld) [Entitic vol] 10.4 fL Normal 8.1-13.5 [facility] Comment on above: Performed By: #### C DP, CP, LACTIC #### [address] [address] Ict Developer: Candelario Kramer MD Platelets (Bld) [#/Vol] 300 10*3/uL Normal 138-453 [facility] Comment on above: Performed By: #### C DP, CP, LACTIC #### [address] [address] Ict Developer: Candelario Kramer MD RBC (Bld) [#/Vol] 3.53 10*6/uL Low 4.21-5.77 [facility] Comment on above: Performed By: #### C DP, CP, LACTIC #### [address] [address] Ict Developer: Candelario Kramer MD WBC (Bld) [#/Vol] 8.0 10*3/uL Normal 3.5-11.3 [facility] Comment on above: Performed By: #### C DP, CP, LACTIC #### [address] [address] Ict Developer: Candelario Kramer MD Comp Metabolic Profon 2022 Albumin [Mass/Vol] 3.8 g/dL Normal 3.5-5.2 [facility] Comment on above: Performed By: #### C DP, CP, LACTIC #### [address] [address] Ict Developer: Candelario Kramer MD Albumin/Glob Ratio 1.5 Normal 1.0-2.5 [facility] Comment on above: Performed By: #### C DP, CP, LACTIC #### [address] [address] Ict Developer: Candelario Kramer MD Alkaline Phos 229 U/L High 40-129 [facility] Comment on above: Performed By: #### C DP, CP, LACTIC #### [facility] [employer] [address] [place] [address] Ict Developer: Candelario Kramer MD ALT [Catalytic activity/Vol] 114 U/L High 5-41 [facility] Comment on above: Performed By: #### C DP, CP, LACTIC #### [address] [address] Ict Developer: Candelario Kramer MD Anion gap [Moles/Vol] 11 mmol/L Normal 9-17 [facility] Comment on above: Performed By: #### C DP, CP, LACTIC #### [address] [address] Ict Developer: Candelario Kramer MD AST [Catalytic activity/Vol] 189 U/L High <40 [facility] Comment on above: Performed By: #### C DP, CP, LACTIC #### [address] [address] Ict Developer: Candelario Kramer MD Bilirubin [Mass/Vol] 0.8 mg/dL Normal 0.3-1.2 [facility] Comment on above: Performed By: #### C DP, CP, LACTIC #### [address] [address] Ict Developer: Candelario Kramer MD Calcium [Mass/Vol] 8.7 mg/dL Normal 8.6-10.4 [facility] Comment on above: Performed By: #### C DP, CP, LACTIC #### [address] [address] Ict Developer: Candelario Kramer MD Chloride [Moles/Vol] 105 mmol/L Normal 98-107 [facility] Comment on above: Performed By: #### C DP, CP, LACTIC #### [address] [address] Ict Developer: Candelario Kramer MD CO2 [Moles/Vol] 23 mmol/L Normal 20-31 [facility] Comment on above: Performed By: #### C DP, CP, LACTIC #### [facility] [employer] [address] [place] [address] Ict Developer: Candelario Kramer MD Creatinine [Mass/Vol] 0.8 mg/dL Normal 0.7-1.2 [facility] Comment on above: Performed By: #### C DP, CP, LACTIC #### [address] [address] Ict Developer: Candelario Kramer MD GFR/1.73 sq M.predicted among non-blacks MDRD (S/P/Bld) [Vol rate/Area] mL/min/{1.73_m2} Normal >60 [facility] Comment on above: Result Comment: These results are not intended for use in patients <18 years of age. eGFR results are calculated without a race factor using the 2020 CKD-EPI equation. Careful clinical correlation is recommended, particularly when comparing to results calculated using previous equations. The CKD-EPI equation is less accurate in patients with extremes of muscle mass, extra-renal metabolism of creatine, excessive creatine ingestion, or following therapy that affects renal tubular secretion. Performed By: #### C DP, CP, LACTIC #### [facility] [employer] [address] [place] [address] Ict Developer: Candelario Kramer MD Glucose [Mass/Vol] 88 mg/dL Normal 70-99 [facility] Comment on above: Performed By: #### C DP, CP, LACTIC #### [facility] [employer] [address] [place] [address] Ict Developer: Candelario Kramer MD Potassium [Moles/Vol] 4.3 mmol/L Normal 3.7-5.3 [facility] Comment on above: Performed By: #### C DP, CP, LACTIC #### [facility] [employer] [address] [place] [address] Ict Developer: Candelario Kramer MD Protein [Mass/Vol] 6.3 g/dL Low 6.4-8.3 [facility] Comment on above: Performed By: #### C DP, CP, LACTIC #### [facility] [employer] [address] [place] [address] Ict Developer: Candelario Kramer MD Sodium [Moles/Vol] 139 mmol/L Normal 135-144 [facility] Comment on above: Performed By: #### C DP, CP, LACTIC #### [facility] [address], [place] [phone] Ict Developer: Candelario Kramer MD Urea nitrogen [Mass/Vol] 15 mg/dL Normal 8-23 [facility] Comment on above: Performed By: #### C DP, CP, LACTIC #### [facility] [address], [place] [id number] Ict Developer: Candelario Kramer MD Comprehensive Metabolic Pane [facility] 01-25-2023 Albumin [Mass/Vol] 3.8 g/dL 3.5 - 5.2 g/dL [facility] Albumin/Globulin [Mass ratio] 1.5 {ratio} 1.0 - 2.5 [facility] ALP [Catalytic activity/Vol] 229 U/L High 40 - 129 U/L [facility] ALT [Catalytic activity/Vol] 114 U/L High 5 - 41 U/L [facility] Anion gap [Moles/Vol] 11 mmol/L 9 - 17 mmol/L [facility] AST [Catalytic activity/Vol] 189 U/L High NINF - 40 U/L [facility] Bilirubin [Mass/Vol] 0.8 mg/dL 0.3 - 1 .2 mg/dL [facility] Calcium [Mass/Vol] 8.7 mg/dL 8.6 - 10. 4 mg/dL [facility] Chloride [Moles/Vol] 105 mmol/L 98 - 10 7 mmol/L [facility] CO2 [Moles/Vol] 23 mmol/L 20 - 31 mmol/L [facility] Creatinine [Mass/Vol] 0.8 mg/dL 0.7 - 1.2 mg/dL [facility] GFR/1.73 sq M.predicted MDRD (S/P/Bld) [Vol rate/Area] - PINF [facility] Comment on above: These results are not intended for use in patients <18 years of age. eGFR results are calculated without a race factor using the 2020 CKD-EPI equation. Careful clinical correlation is recommended, particularly when comparing to results calculated using previous equations. The CKD-EPI equation is less accurate in patients with extremes of muscle mass, extra-renal metabolism of creatine, excessive creatine ingestion, or following therapy that affects renal tubular secretion. Glucose [Mass/Vol] 88 mg/dL 70 - 99 mg/dL [facility] Interpretation and review of laboratory results Abnormal [facility] Potassium [Moles/Vol] 4.3 mmol/L 3.7 - 5.3 mmol/L [facility] Protein [Mass/Vol] 6.3 g/dL Low 6.4 - 8.3 g/dL [facility] Sodium [Moles/Vol] 139 mmol/L 135 - 144 mmol/L [facility] Urea nitrogen [Mass/Vol] 15 mg/dL 8 - 23 mg/dL [facility] Lactic Acidon 01-25-2023 Lactic Acid,Whole Bl 1.7 mmol/L Normal 0.7-2.1 [facility] Comment on above: Performed By: #### C DP, CP, LACTIC #### [facility] [employer] [address] [place] [address] Ict Developer: Candelario Kramer MD Lactic Acid, Whole Blood 1.7 mmol/L 0.7 - 2.1 mmol/L [facility] Ambulatory Visit Summaryon 0 01-19-2023 Ambulatory Visit Summary ABRAHAM HARRY :1960 Visit Date:01/19/2023 Ambulatory Visit Instructions Your Diagnosis Acute gangrenous cholecystitis Your Care Team Attending Physician - LIN FENTON, Marbin Carrillo Primary Care Physician - Nirav Cain DO This Is Your Medications List Contact prescribing physician if questions or concerns albuterol (ProAir HFA) aspirin (Aspirin 81 mg Tab-EC) atorvastatin (atorvastatin 80 mg Tab) budesonide-formoterol (Symbicort 160/4.5 inhalation aerosol with adapter) cholecalciferol (Vitamin D 1000 intl units Tab) clopidogrel (Plavix 75 mg Tab) losartan (losartan 50 mg Tab) metoprolol (metoprolol 50 mg ER Tab) nitroglycerin (nitroglycerin 0.4 mg sublingual Tab) revefenacin (Yupelri) spironolactone (spironolactone 50 mg Tab) Procedures Performed Laparoscopic cholecystectomy (01/10/2023), Colonoscopy (09/17/2020), Right shoulder arthroscopy with extensive glenohumeral debridement, subacromial decompression, mini-open rotator cuff repair (11/23/2016), Rt/Lt Heart Catheterization (07/11/2015), Colonoscopy, Excision of basal cell carcinoma, Repair of right inguinal hernia, Tonsillectomy. Medications What How Much When Instructions Unchanged albuterol (ProAir HFA) See Instructions Inhalation Every 6 hours as needed for Shortness of breath or wheezing Contact prescribing physician if questions or concerns Unchanged aspirin (Aspirin 81 mg Tab-EC) 1 Tablets By Mouth Every day Contact prescribing physician if questions or concerns Unchanged atorvastatin (atorvastatin 80 mg Tab) 1 Tablets By Mouth Every day Contact prescribing physician if questions or concerns Unchanged budesonide-formoterol (Symbicort 160/ 4.5 inhalation aerosol with adapter) 2 Puffs Inhalation 2 times a day Contact prescribing physician if questions or concerns Unchanged cholecalciferol (Vitamin D 1000 intl units Tab) 1 Tablets By Mouth Every day Contact prescribing physician if questions or concerns Unchanged clopidogrel (Plavix 75 mg Tab) 1 Tablets By Mouth Every day Contact prescribing physician if questions or concerns Unchanged losartan (losartan 50 mg Tab) 1 Tablets By Mouth Every day Contact prescribing physician if questions or concerns Unchanged metoprolol (metoprolol 50 mg ER Tab) 1 Tablets By Mouth Every day Contact prescribing physician if questions or concerns Unchanged nitroglycerin (nitroglycerin 0.4 mg sublingual Tab) 1 Tablets Sublingual Every 5 minutes as needed for for chest pain Contact prescribing physician if questions or concerns Unchanged revefenacin (Yupelri) 175 Microgram Inhalation Every day Contact prescribing physician if questions or concerns Unchanged spironolactone (spironolactone 50 mg Tab) 1 Tablets By Mouth Every day Contact prescribing physician if questions or concerns Allergies Tape (irritation) Problems Ongoing - Any problem that you are currently receiving treatment for. Acute gangrenous cholecystitis Acute on chronic systolic heart failure Asthma Chronic obstructive pulmonary disease Combined systolic and diastolic dysfunction Coronary atherosclerosis History of CVA (cerebrovascular accident) Hypercholesterolemia Hypertensive disorder Prediabetes Historical - Any problem that you are no longer receiving treatment for. Cardiomyopathy Chronic obstructive lung disease COPD (chronic obstructive pulmonary disease) History of TIA (transient ischemic attack) HTN (hypertension) Obesity Plantar fasciitis Normal [facility] General Surgery Office/Clini c Noteon 01-19-2023 General Surgery Office/Clinic Note HPI Staff 9 day post operative follow up post lap cholecystectomy completed while in-patient at [facility]. Denies discomfort, no use of pain medication. Denies bleeding or drainage. Appetite good; tolerating foods. Denies bowel changes. History of Present Illness 9 days s/p LS cholecystectomy for hemorrhagic, gangrenous cholecystitis as inpatient; doing well, denies pain, no drainage from incisions; normal bms, eating well; no fevers. Review of Systems PHQ Score Initial Depression Screen Score: 0 ROS - Provider Constitutional: no fever, no sweats, no weight loss. Eyes: no glasses, no blurred vision, no visual loss. ENMT: no dentures, no hoarseness, no swallowing difficulties, no hearing loss, no ear infection(s), no nose bleeds. Cardiovascular: normal blood pressure, no chest pain, regular heartbeat, no heart murmur. Respiratory: no shortness of breath, no cough, no asthma, no wheezing. Gastrointestinal: no nausea, no vomiting, no diarrhea, no constipation, no blood in stool, no change in bowel habits, no abdominal pain, no hepatitis. Genitourinary: no kidney stones, no urine infection, no dysuria. Musculoskeletal: no pain, no weakness. Skin: no changing moles, no rash, no skin lumps. Neurologic: no seizures, no epilepsy, no headache. Psychiatric: no emotional or psychiatric problem. Heme/Lymph: no bleeding problems, no anemia, no blood clots, no transfusions. Allergy/Immunologic: no swollen lymph nodes/glands, no IV drug abuse. Other: Additional ROS info: Except as noted in the above Review of Systems and in the History of Present Illness, all other systems have been reviewed and are negative or noncontributory. Physical Exam abd: soft, nondistended, normal bs, incisions healing well, no erythema or drainage; ecchymosis right abd, no hematoma. Assessment/Plan 1. Acute gangrenous cholecystitis (K81.0: Acute cholecystitis) doing well; continue no lifting > 10 lbs for 3 weeks; call with problems/questions. Follow-up No qualifying data available Problem List/Past Medical History Ongoing Acute gangrenous cholecystitis Acute on chronic systolic heart failure Asthma Chronic obstructive pulmonary disease Combined systolic and diastolic dysfunction Coronary atherosclerosis History of CVA (cerebrovascular accident) Hypercholesterolemia Hypertensive disorder Prediabetes Historical Cardiomyopathy Chronic obstructive lung disease COPD (chronic obstructive pulmonary disease) History of TIA (transient ischemic attack) HTN (hypertension) Obesity Plantar fasciitis Procedure/Surgical History Laparoscopic cholecystectomy (01/10/2023), Colonoscopy (09/17/2020), Right shoulder arthroscopy with extensive glenohumeral debridement, subacromial decompression, mini-open rotator cuff repair (11/23/2016), Rt/Lt Heart Catheterization (07/11/2015), Colonoscopy, Excision of basal cell carcinoma, Repair of right inguinal hernia, Tonsillectomy. Medications Aspirin 81 mg Tab-EC, 81 mg= 1 tab(s), Oral, Daily atorvastatin 80 mg Tab, 80 mg= 1 tab(s), Oral, Daily losartan 50 mg Tab, 50 mg= 1 tab(s), Oral, Daily metoprolol 50 mg ER Tab, 50 mg= 1 tab(s), Oral, Daily nitroglycerin 0.4 mg sublingual Tab, 0.4 mg= 1 tab(s), SubLingual, q5min, PRN Plavix 75 mg Tab, 75 mg= 1 tab(s), Oral, Daily ProAir HFA, See Instructions, Inhalation, q6hr, PRN spironolactone 50 mg Tab, 50 mg= 1 tab(s), Oral, Daily Symbicort 160/4.5 inhalation aerosol with adapter, 2 puff(s), Inhalation, BID Vitamin D 1000 intl units Tab, 1000 International_Unit= 1 tab(s), Oral, Daily Yupelri, 175 mcg, Inhalation, Daily Allergies Tape (irritation) Social History Alcohol - Denies Alcohol Use, 07/08/2015 Substance Abuse - Denies Substance Abuse, 07/08/2015 Tobacco - Denies Tobacco Use, 11/10/2016 Former smoker, quit more than 30 days ago Tobacco Use:. Never Smokeless Tobacco Use:. Cigarettes, 0.1 per day. Started age 18.0 Years. Stopped age 42 Years., 01/19/2023 Family History Acute myocardial infarction: Father. Diabetes mellitus type 2: Brother. Heart failure: Father. Immunizations Vaccine Date Status SARS-CoV-2 (COVID-19) mRNA-1273 vaccine 09/19/2020 Recorded SARS-CoV-2 (COVID-19) mRNA-1273 vaccine 08/22/[address] [facility] Comment on above: Result Comment: Elec tronically Signed By: LIN FENTON, Marbin MercadoDate and Time Signed: 01/19/23 16:30 EDT Operative Reporton Operative Report [id number]#1.00CD:127 [facility] Pathology Noteon 01-17-2023 Pathology Note [id number]#1.00CD:127 [facility] Consultation Noteon 01-13-20 Consultation Note [id number]#1.00CD:127 [facility] Consultation Noteon 01-12-20 Consultation Note [id number]#1.00CD:127 [facility] Consultation Note [id number]#1.00CD:127 [facility] Consultation Note [id number]#1.00CD:127 [facility] Consultation Note [id number]#1.00CD:127 [facility] Lab Reportson 01-11-2023 Lab Reports [id number]#1.00CD:127 [facility] Lab Reports [id number]#1.00CD:127 [facility] Lab Reports [id number]#1.00CD:[address] [facility] Lab Reports [id number]#1.00CD:[address] [facility] RAD - Ultrasound Reporton RAD - Ultrasound Report [id number]#1.00CD:[address] [facility] Cardiac Stress Teston 2022 [facility] [address] [place] [address], [address] [place] [address] Exercise Stress Test Patient Name: ABRAHAM Garzon Ordering Physician: Tray HARRY MD Study Date: 12/21/2022 Reading Physician: Tray Baca MD MRN/PID: [id number] Supervising Tray Baca Physician: Accession/Order#: [id number] Referring Physician: REY BACA Date of : 1960 PCP: Joshua Cain MD Gender: M Fellow: Height: 180.34 cm Nurse: Magali Parks RN Weight: 116.58 kg Corporate Compliance Manager: NA BSA: 2.35 m2 Technologist: BMI: 35.84 kg/m2 Additional Staff: Age: 62 years cc report to: Patient Location: cc report to: Tray Baca MD Study Type: Cardiac Stress Test Diagnosis/ICD: I25.10-Atherosclerotic heart disease; C70-Tbjcylpzi (primary) hypertension; R07.9-Chest pain, unspecified Indication: Hypertension Procedure/CPT: Stress Test Interpretation-[id number]; Stress Test Supervision-[id number] Falls Risk: Low: Patient has low risk for sustaining a fall; environmental safety interventions in place. Study Details: Correct procedure and correct patient verified verbally. Patient History: Allergies: None. Patient Performance: The peak heart rate achieved was 141 bpm, which was 88 % of the age predicted target heart rate of 160 bpm. The resting blood pressure was 126/86 mmHg with a heart rate of 90 bpm. The standing blood pressure was 128/86 mmHg with a heart rate of 96 bpm. The patient's functional capacity was below average. The patient developed dyspnea during the stress exam. The symptoms resolved with rest. The blood pressure response was normal. The test was terminated due to: dyspnea. Baseline ECG: Resting ECG showed normal sinus rhythm with occasional premature ventricular contractions and prior inferior infarct. Stress ECG: Stress ECG showed sinus tachycardia. Minimal ST segment depression compared to baseline. Approximately 0.2 to 0.4 mm depression. Stress Stage Data: + +---+--- ---+-------+ HR Sys BP Thomas BP + +---+--- ---+-------+ Baseline Resting 90 126 86 + +---+--- ---+-------+ Baseline Standing 96 128 86 + +---+--- ---+-------+ Stage I 122 136 82 + +---+--- ---+-------+ Stage II 141 142 76 + +---+--- ---+-------+ Recovery ECG: Recovery ECG showed normal sinus rhythm, with no abnormal findings. The heart rate recovery was normal. + +---+------+- ------+ HR Sys BP Thomas BP + +---+------+- ------+ Recovery I 138 148 82 + +---+------+- ------+ Recovery II 130 138 76 + +---+------+- ------+ Recovery III 115 138 82 + +---+------+- ------+ Recovery IV 104 136 78 + +---+------+- ------+ Summary: 1. Adequate level of stress achieved. 2. Minimal ST segment depression compared to baseline. Approximately 0.2 to 0.4 mm depression. 3. Normal Stress Test. [id number] Rey Baca MD Electronically signed on 12/23/2022 at 3:40:53 PM Final Normal [facility] Cardiac Stress Test [facility] DO Work Phone: Office Visit (Cardiology)on 11-23-2022 Follow-up visit Diagnoses/Problems Assessed ASHD (arteriosclerotic heart disease) (414.00) (I25.10) Essential hypertension (401.9) (I10) Hyperlipidemia (272.4) (E78.5) Chronic obstructive pulmonary disease, unspecified COPD type (496) (J44.9) Class 2 obesity with body mass index (BMI) of 36.0 to 36.9 in adult (278.00,V85.36) (E66.9,Z68.36) Former smoker (V15.82) (Z87.891) quit 2006 minimal smoker Chest pain (786.50) (R07.9) Orders ASHD (arteriosclerotic heart disease), Chest pain, Essential hypertension Cardiac Stress Test; Status:Hold For - Scheduling,Retrospective Authorization; Requested for:[id number]; Class 2 obesity with body mass index (BMI) of 36.0 to 36.9 in adult Healthy Weight Tips; Status:Complete - Retrospective Authorization; Done: [id number] Some eating tips that can help you lose weight.; Status:Complete - Retrospective Authorization; Done: [id number] SocHx: Former smoker Tobacco Use Screening; Status:Complete; Done: [id number] Patient Instructions Please bring all medicines, vitamins, and herbal supplements with you when you come to the office. Prescriptions will not be filled unless you are compliant with your follow up appointments or have a follow up appointment scheduled as per instruction of your physician. Refills should be requested at the time of your visit. Follow up after testing completed Chief Complaint ABRAHAM HARRY is being seen for a 6 month follow-up of. History of Present Illness Patient returns in follow-up of problems as noted. In the interim he has begun to develop anginal chest pain. He describes retrosternal pain brought about by aerobic activity and relieved with rest. Review of chart demonstrates that he had a coronary angiogram 7 years ago in [facility] where he had moderate disease treated medically. In the interim his hypertension and hyperlipidemia have been adequately managed and he quit smoking. Nonetheless the propensity to progressive coronary atherosclerosis that could lead angina was discussed and explained in detail I propose to him that he be evaluated. Specifically I believe treadmill testing should be undertaken. He believes he can do the treadmill test despite his concomitant diagnoses of COPD and asthma. Because of this we will plan to proceed with stress testing and follow-up thereafter. Current Meds Medication NameInstruction Albuterol Sulfate (2.5 MG/3ML) 0.083% Inhalation Nebulization SolutionINHALE CONTENTS OF 1 VIAL VIA NEBULIZER EVERY 6 HOURS NEEDED Atorvastatin Calcium 80 MG Oral TabletTAKE 1 TABLET BY MOUTH EVERY DAY Clopidogrel Bisulfate 75 MG Oral TabletTAKE 1 TABLET DAILY. Losartan Potassium 50 MG Oral TabletTAKE 1 TABLET BY MOUTH DAILY Metoprolol Succinate ER 50 MG Oral Tablet Extended Release 24 HourTAKE 1 TABLET BY MOUTH EVERY DAY Nitroglycerin 0.4 MG Sublingual Tablet SublingualPLACE 1 TABLET UNDER THE TONGUE EVERY 5 MINUTES FOR UP TO 3 DOSES NEEDED FOR CHEST PAIN.CALL 911 IF PAIN PERSISTS. ProAir HFA 108 (90 Base) MCG/ACT AERSas needed Spironolactone 50 MG Oral TabletTAKE 1 TABLET DAILY. Symbicort 160-4.5 MCG/ACT Inhalation AerosolUSE DIRECTED. Vitamin D 125 MCG (5000 UT) CAPSTAKE 1 CAPSULE Daily Yupelri 175 MCG/3ML Inhalation Solutionas directed Allergies Medication No Known Drug Allergies Recorded By: Jennifer Helton; 04/15/2022 3:06:10 PM Social History Problems Caffeine use (V49.89) (Z78.9) 1 pot decaf coffee daily Former smoker (V15.82) (Z87.891) quit 2006 minimal smoker No alcohol use No illicit drug use Review of Systems Constitutional: not feeling tired. Eyes: no eyesight problems. ENT: no hearing loss and no nosebleeds. Cardiovascular: no intermittent leg claudication and as noted in HPI. Respiratory: no chronic cough and no shortness of breath. Gastrointestinal: no change in bowel habits and no blood in stools. Genitourinary: no urinary frequency and no hematuria. Skin: no skin rashes. Neurological: no seizures and no frequent falls. Psychiatric: no depression and not suicidal. All other systems have been reviewed and are negative for complaint. Vitals Vital Signs Recorded: [id number] 09:21AM Heart Rate84, L Radial Omifguwo912, LUE, Sitting Rpalhryru46, LUE, Sitting Height5 ft 10.5 in Savtrm009 lb BMI Hxvgmnbjkt23.35 kg/m2 BSA Calculated2.33 Tobacco Useb) No PHQ-2 #1. Over the last 2 weeks have you felt down, depressed or hopeless? (If yes, answer PHQ-9 below)No PHQ-2 #2. Over the last 2 weeks have you felt little interest or pleasure in doing things? (If yes, answer PHQ-9 below)No Falls Screening (Age 18+)a) No falls within the last year Physical Exam Constitutional: alert and in no acute distress. Eyes: no erythema, swelling or discharge from the eye . Neck: neck is supple, symmetric, trachea midline, no masses and no thyromegaly . Pulmonary: no increased work of breathing or signs of respiratory distress and lungs clear to auscultation. Card (more content not included)... [facility] XR chest 2V*on 09-30-2022 XR chest 2V* [facility] [place] [address] [place] [address] XRay Report Signed Patient: Abraham Harry MR#: [id number] : 1960 Acct:[id number] Age/Sex: 61 / M ADM Date: 09/30/22 Loc: RT Room: Type: [facility] Attending Dr: Chan Taylor MD Copies to: Chan Taylor MD Ordering Provider: Chna Taylor MD Date of Service: 09/30/22 XR/XR chest 2V*: J44.9 Chest 2 views CLINICAL HISTORY: Shortness of breath, worse with exertion. COMPARISON: None FINDINGS: Heart normal in size. Lungs are clear. No free air. XR/XR chest 2V* IMPRESSION: NO ACUTE CARDIOPULMONARY ABNORMALITY. Impression dictated by: Rosales Porter Jr., D.O.09/30/2022 3:55 PM Dictation Location: [place] [address] Transcribed By: [facility] 09/30/221554 Dictated By: Rosales Porter Jr, DO 09/30/221554 Signed By: 09/30/221554 [facility] Office Visit (Cardiology)on 04-15-2022 Follow-up visit Diagnoses/Problems Assessed ASHD (arteriosclerotic heart disease) (414.00) (I25.10) Essential hypertension (401.9) (I10) Hyperlipidemia (272.4) (E78.5) Asthma (493.90) (J45.909) Chronic obstructive pulmonary disease, unspecified COPD type (496) (J44.9) Class 2 obesity with body mass index (BMI) of 37.0 to 37.9 in adult (278.00,V85.37) (E66.9,Z68.37) Former smoker (V15.82) (Z87.891) quit 2006 minimal smoker Orders ASHD (arteriosclerotic heart disease) Renew: Clopidogrel Bisulfate 75 MG Oral Tablet; TAKE 1 TABLET DAILY Renew: Nitroglycerin 0.4 MG Sublingual Tablet Sublingual; PLACE 1 TABLET UNDER THE TONGUE EVERY 5 MINUTES FOR UP TO 3 DOSES NEEDED FOR CHEST PAIN.CALL 911 IF PAIN PERSISTS Class 2 obesity with body mass index (BMI) of 37.0 to 37.9 in adult Healthy Weight Tips; Status:Complete - Retrospective Authorization; Done: [id number] Some eating tips that can help you lose weight.; Status:Complete - Retrospective Authorization; Done: [id number] Hyperlipidemia Renew: Atorvastatin Calcium 80 MG Oral Tablet; TAKE 1 TABLET BY MOUTH EVERY DAY SocHx: Former smoker Tobacco Use Screening; Status:Complete; Done: 35Lut5025 Tobacco Use Screening; Status:Complete; Done: 56Otb5625 Patient Instructions Please bring all medicines, vitamins, and herbal supplements with you when you come to the office. Prescriptions will not be filled unless you are compliant with your follow up appointments or have a follow up appointment scheduled as per instruction of your physician. Refills should be requested at the time of your visit Follow up in 6-9 months Chief Complaint ABRAHAM HARRY is being seen for a 9 month follow-up of. History of Present Illness Patient returns in follow-up of problems as noted. In the interim he has had no angina CHF or arrhythmia symptomatology. He has none of the symptoms of coronary disease that preceded his diagnosis. His hypertension and hyperlipidemia are well controlled and he was congratulated on his continued abstinence from tobacco. The merits of diet exercise and weight loss were discussed. He notes resting tachycardia. I agree with him on auscultation and palpation heart rate is about 100. Because of this an EKG was performed and it demonstrates sinus tachycardia. I believe his tachycardia is on the basis of multiple bronchodilators that he uses and this was explained to him in detail and this reassures him that its not an unusual phenomenon. In light of all the above I believe he is suitably stable and I suggest continued therapy as before without change and follow-up next year. Current Meds Medication NameInstruction Albuterol Sulfate (2.5 MG/3ML) 0.083% Inhalation Nebulization SolutionINHALE CONTENTS OF 1 VIAL VIA NEBULIZER EVERY 6 HOURS NEEDED Atorvastatin Calcium 80 MG Oral TabletTAKE 1 TABLET BY MOUTH EVERY DAY Clopidogrel Bisulfate 75 MG Oral TabletTAKE 1 TABLET DAILY. Losartan Potassium 50 MG Oral TabletTAKE 1 TABLET BY MOUTH DAILY Metoprolol Succinate ER 50 MG Oral Tablet Extended Release 24 HourTAKE 1 TABLET BY MOUTH EVERY DAY Nitroglycerin 0.4 MG Sublingual Tablet SublingualPLACE 1 TABLET UNDER THE TONGUE EVERY 5 MINUTES FOR UP TO 3 DOSES NEEDED FOR CHEST PAIN.CALL 911 IF PAIN PERSISTS. ProAir HFA 108 (90 Base) MCG/ACT AERSas needed Spironolactone 50 MG Oral TabletTAKE 1 TABLET DAILY. Symbicort 160-4.5 MCG/ACT Inhalation AerosolUSE DIRECTED. Vitamin D 125 MCG (5000 UT) CAPSTAKE 1 CAPSULE Daily Yupelri 175 MCG/3ML Inhalation Solutionas directed Allergies Medication No Known Drug Allergies Recorded By: Jennifer Helton; 04/15/2022 3:06:10 PM Social History Problems Caffeine use (V49.89) (Z78.9) 1 pot decaf coffee daily Former smoker (V15.82) (Z87.891) quit 2006 minimal smoker No alcohol use No illicit drug use Review of Systems Constitutional: not feeling tired. Eyes: no eyesight problems. ENT: no hearing loss and no nosebleeds. Cardiovascular: no intermittent leg claudication and as noted in HPI. Respiratory: no chronic cough and no shortness of breath. Gastrointestinal: no change in bowel habits and no blood in stools. Genitourinary: no urinary frequency and no hematuria. Skin: no skin rashes. Neurological: no seizures and no frequent falls. Psychiatric: no depression and not suicidal. All other systems have been reviewed and are negative for complaint. Vitals Vital Signs Recorded: 15Apr2022 03:07PM Heart Rate96, R Radial Mqavdpzz120, LUE, Sitting Brohmtdrn77, LUE, Sitting Height5 ft 10.5 in Onbinl902 lb 3.2 oz BMI Pwwtcnqsxy45.8 kg/m2 BSA Calculated2.37 Tobacco Useb) No Physical Exam Constitutional: alert and in no acute distress. Eyes: no erythema, swelling or discharge from the eye . Neck: neck is supple, symmetric, trachea midline, no masses and no thyromegaly . Pulmonary: no increased work of breathing or signs of respiratory distress and lungs clear to auscultation. Cardiovascula (more content not included)... Normal [employer] Tobacco Screening.on 022 Tobacco use status [facility] b) No -[facility] DO Work Phone: CBC AUTO DIFFon 02-18-2022 BASO # 0.1 103/ul Normal 0.0-0.1 [facility] Comment on above: Performed By: #### C BC #### [facility] [address] [place] [address] Dr. Demetria Jain Basophils/100 WBC (Bld) 0.7 % Normal 0.2-2.0 [facility] Comment on above: Performed By: #### C BC #### [facility] [address] [place] [address] Dr. Demetria Jain EO # 0.2 103/ul Normal 0.0-0.7 [facility] Comment on above: Performed By: #### C BC #### [facility] [address] [place] [address] Dr. Demetria Jain Eosinophils/100 WBC (Bld) 2.4 % Normal 0.9-7.0 [facility] Comment on above: Performed By: #### C BC #### [facility] [address] [place] [address] Dr. Demetria Jain Erythrocyte distribution width (RBC) [Ratio] 12.6 % Normal 11.0-15.0 [facility] Comment on above: Performed By: #### C BC #### [facility] [address] [place] [address] Dr. Demetria Jain Hematocrit (Bld) [Volume fraction] 38.1 % Critically low 42.0-54.0 [facility] Comment on above: Performed By: #### C BC #### [facility] [address] [place] [address] Dr. Demetria Jain Hemoglobin (Bld) [Mass/Vol] 12.5 g/dL Critically low 14.0-18.0 [facility] Comment on above: Performed By: #### C BC #### [facility] [address] [place] [address] Dr. Demetria Jain IG # 0.04 10e3/ul Critically high 0.00-0.03 [facility] Comment on above: Performed By: #### C BC #### [facility] [address] [place] [address] Dr. Demetria Jain IG % 0.4 % Normal 0.0-0.5 [facility] Comment on above: Performed By: #### C BC #### [facility] [address] [place] [address] Dr. Demetria Jain LYMPH # 1.4 103/ul Normal 1.2-3.8 [facility] Comment on above: Performed By: #### C BC #### [facility] [address] [place] [address] Dr. Demetria Jain Lymphocytes/100 WBC (Bld) 13.6 % Critically low 20.5-60.0 [facility] Comment on above: Performed By: #### C BC #### [facility] [address] [place] [address] Dr. Demetria Jain MANUAL DIFF REQ NO Normal [facility] Comment on above: Performed By: #### C BC #### [facility] [address] [place] [address] Dr. Demetria Jain MCH (RBC) [Entitic mass] 30.2 pg Normal 25.9-34.0 [facility] Comment on above: Performed By: #### C BC #### [facility] [address] [place] [address] Dr. Demetria Jain MCHC (RBC) [Mass/Vol] 32.8 g/dL Normal 29.9-35.2 [facility] Comment on above: Performed By: #### C BC #### [facility] [address] [place] [address] Dr. Demetria Jain MCV (RBC) [Entitic vol] 92.0 fL Normal 80.0-94.0 [facility] Comment on above: Performed By: #### C BC #### [facility] [address] [place] [address] Dr. Demetria Jain MONO # 0.5 103/ul Normal 0.3-0.8 [facility] Comment on above: Performed By: #### C BC #### [facility] [address] [place] [address] Dr. Demetria Jain Monocytes/100 WBC (Bld) 4.5 % Normal 1.7-12.0 [facility] Comment on above: Performed By: #### C BC #### [facility] [address] [place] [address] Dr. Demetria Jain NEUT # 7.9 103/ul Critically high 1.4-6.5 [facility] Comment on above: Performed By: #### C BC #### [facility] [address] [place] [address] Dr. Demetria Jain Neutrophils/100 WBC (Bld) 78.4 % Critically high 43.0-75.0 [facility] Comment on above: Performed By: #### C BC #### [facility] [address] [place] [address] Dr. Demetria Jain Platelet mean volume (Bld) [Entitic vol] 11.0 fL Normal 9.5-13.5 [facility] Comment on above: Performed By: #### C BC #### [facility] [address] [address] [address] Demetria Jain PLT 243 103/ul Normal 150-450 [facility] Comment on above: Performed By: #### C BC #### [facility] [address] [address] [address] Demetria Jain RBC 4.14 106/ul Critically low 4.70-6.10 [facility] Comment on above: Performed By: #### C BC #### [facility] [address] [address] [address] Demetria Jain WBC 10.0 103/ul Normal 4.0-11.0 [facility] Comment on above: Performed By: #### C BC #### [facility] [address] [place] [address] Dr. Demetria Jain LIPID PROFILEon 02-18-2022 CHOL-HDL RATIO NORM SEE BELOW Normal [facility] Comment on above: Result Comment: 3.3 - 4.4 LOW RISK 4.4 - 7.1 AVERAGE RISK 7.1 - 11.0 MODERATE RISK >11.0 HIGH RISK Performed By: #### C MP, LIPID #### [facility] [address] [place] [address] Dr. Demetria Jain Cholesterol [Mass/Vol] 171 mg/dL Normal <=200 [facility] Comment on above: Performed By: #### C MP, LIPID #### [facility] [address] [place] [address] Dr. Demetria Jain Cholesterol in HDL [Mass/Vol] 78 mg/dL Critically high 40-60 [facility] Comment on above: Performed By: #### C MP, LIPID #### [facility] [address] [place] [address] Dr. Demetria Jain Cholesterol in LDL [Mass/Vol] 83.6 mg/dL Normal [facility] Comment on above: Performed By: #### C MP, LIPID #### [facility] [address] [place] [address] Dr. Demetria Jain Cholesterol.total/Cho lesterol in HDL [Mass ratio] 2.2 {ratio} Normal [facility] Comment on above: Performed By: #### C MP, LIPID #### [facility] [address] [address] [address] Demetria Jain HDL NORMAL > or = 60 mg/dl - LO W CARDIOVASCULAR RISK <40 mg/dl - HIGH CARDIOVASCULAR RISK Normal [facility] Comment on above: Performed By: #### C MP, LIPID #### [facility] [address] [address] [address] Demetria Jain LDL CALC NORMAL SEE BELOW Normal [facility] Comment on above: Result Comment: <100 mg/dl OPTIMAL 100 - 129 mg/dl NEAR OR ABOVE OPTIMAL 130 - 159 mg/dl BORDERLINE HIGH 160 - 189 mg/dl HIGH >190 mg/dl VERY HIGH Performed By: #### C MP, LIPID #### [facility] [address] [address] [address] Demetria Jain Triglyceride [Mass/Vol] 47 mg/dL Normal <=150 [facility] Comment on above: Performed By: #### C MP, LIPID #### [facility] [address] [address] [address] Demetria Jain VLDL CALC 9.4 mg/dL Normal [facility] Comment on above: Performed By: #### C MP, LIPID #### [facility] [address] [address] [address] Demetria Jain PROF 14(COMP METB)on 022 Albumin [Mass/Vol] 4.0 g/dL Normal 3.4-5.0 [facility] Comment on above: Performed By: #### C MP, LIPID #### [facility] [address] [address] [address] Demetria Jain Albumin/Globulin [Mass ratio] 1.1 {ratio} Normal [facility] Comment on above: Performed By: #### C MP, LIPID #### [facility] [address] [address] [address] Demetria Jain ALP [Catalytic activity/Vol] 89 U/L Normal 46-116 [facility] Comment on above: Performed By: #### C MP, LIPID #### [facility] [address] [address] [address] Demetria Jain ALT [Catalytic activity/Vol] 26 U/L Normal 16-63 [facility] Comment on above: Performed By: #### C MP, LIPID #### [facility] [address] [address] [address] Demetria Jain Anion gap [Moles/Vol] 15.0 mmol/L Normal Th [facility] Comment on above: Performed By: #### C MP, LIPID #### [facility] [address] [address] [address] Demetria Jain AST [Catalytic activity/Vol] 18 U/L Normal 15-37 [facility] Comment on above: Performed By: #### C MP, LIPID #### [facility] [address] [address] [address] Demetria Jain Bilirubin [Mass/Vol] 0.7 mg/dL Normal 0.2-1.0 [facility] Comment on above: Performed By: #### C MP, LIPID #### [facility] [address] [address] [address] Demetria Jain Calcium [Mass/Vol] 9.2 mg/dL Normal 8.5-10.1 [facility] Comment on above: Performed By: #### C MP, LIPID #### [facility] [address] [address] [address] Demetria Jain Chloride [Moles/Vol] 100 mmol/L Normal 98-107 [facility] Comment on above: Performed By: #### C MP, LIPID #### [facility] [address] [address] [address] Demetria Jain CO2 [Moles/Vol] 25.8 mmol/L Normal 21.0-32.0 [facility] Comment on above: Performed By: #### C MP, LIPID #### [facility] [address] [address] [address] Demetria Jain Creatinine [Mass/Vol] 0.76 mg/dL Normal 0.70-1.30 [facility] Comment on above: Performed By: #### C MP, LIPID #### [facility] [address] [address] [address] Demetria Jain EGFR-AF FAROESE >60 Normal >=60 [facility] Comment on above: Performed By: #### C MP, LIPID #### [facility] [address] [address] [address] Demetria Jain EGFR-NON AF FAROESE >60 Normal >=60 [facility] Comment on above: Performed By: #### C MP, LIPID #### [facility] [address] [address] [address] Demetria Jain Globulin (S) [Mass/Vol] 3.6 g/dL Normal [facility] Comment on above: Performed By: #### C MP, LIPID #### [facility] [address] [address] [address] Demetria Jain Glucose [Mass/Vol] 87 mg/dL Normal 74-106 [facility] Comment on above: Performed By: #### C MP, LIPID #### [facility] [address] [address] [address] Demetria Jain Potassium [Moles/Vol] 3.8 mmol/L Normal 3.5-5.1 [facility] Comment on above: Performed By: #### C MP, LIPID #### [facility] [address] [address] [address] Demetria Jain Protein [Mass/Vol] 7.6 g/dL Normal 6.4-8.2 [facility] Comment on above: Performed By: #### C MP, LIPID #### [facility] [address] [address] [address] Demetria Jain Sodium [Moles/Vol] 137 mmol/L Normal 136-145 [facility] Comment on above: Performed By: #### C MP, LIPID #### [facility] [address] [address] [address] Demetria Jain Urea nitrogen [Mass/Vol] 15.0 mg/dL Normal 7.0-18.0 [facility] Comment on above: Performed By: #### C MP, LIPID #### [facility] [address] [address] [address] Demetria Jain Urea nitrogen/Creatinine [Mass ratio] 19.7 mg/mg Normal [facility] Comment on above: Performed By: #### C MP, LIPID #### [facility] [address] [address] [address] Demetria Jain CBC AUTO DIFFon 04-23-2021 BASO # 0.1 103/ul Normal 0.0-0.1 [facility] Comment on above: Performed By: #### C BC #### [facility] [address] [address] [address] Demetria Jain Basophils/100 WBC (Bld) 0.5 % Normal 0.2-2.0 [facility] Comment on above: Performed By: #### C BC #### [facility] [address] [place] [address] Dr. Demetria Jain EO # 0.3 103/ul Normal 0.0-0.7 [facility] Comment on above: Performed By: #### C BC #### [facility] [address] [address] [address] Demetria Jain Eosinophils/100 WBC (Bld) 2.8 % Normal 0.9-7.0 [facility] Comment on above: Performed By: #### C BC #### [facility] [address] [place] [address] Dr. Demetria Jain Erythrocyte distribution width (RBC) [Ratio] 12.7 % Normal 11.0-15.0 [facility] Comment on above: Performed By: #### C BC #### [facility] [address] [place] [address] Dr. Demetria Jain Hematocrit (Bld) [Volume fraction] 38.1 % Critically low 42.0-54.0 [facility] Comment on above: Performed By: #### C BC #### [facility] [address] [place] [address] Dr. Demetria Jain Hemoglobin (Bld) [Mass/Vol] 12.9 g/dL Critically low 14.0-18.0 [facility] Comment on above: Performed By: #### C BC #### [facility] [address] [place] [address] Dr. Demetria Jain IG # 0.04 10e3/ul Critically high 0.00-0.03 [facility] Comment on above: Performed By: #### C BC #### [facility] [address] [place] [address] Dr. Demetria Jain IG % 0.4 % Normal 0.0-0.5 [facility] Comment on above: Performed By: #### C BC #### [facility] [address] [place] [address] Dr. Demetria Jain LYMPH # 1.3 103/ul Normal 1.2-3.8 [facility] Comment on above: Performed By: #### C BC #### [facility] [address] [place] [address] Dr. Demetria Jain Lymphocytes/100 WBC (Bld) 11.5 % Critically low 20.5-60.0 [facility] Comment on above: Performed By: #### C BC #### [facility] [address] [place] [address] Dr. Demetria Jain MANUAL DIFF REQ NO Normal [facility] Comment on above: Performed By: #### C BC #### [facility] [address] [place] [address] Dr. Demetria Jain MCH (RBC) [Entitic mass] 30.4 pg Normal 25.9-34.0 [facility] Comment on above: Performed By: #### C BC #### [facility] [address] [place] [address] Dr. Demetria Jain MCHC (RBC) [Mass/Vol] 33.9 g/dL Normal 29.9-35.2 [facility] Comment on above: Performed By: #### C BC #### [facility] [address] [place] [address] Dr. Demetria Jain MCV (RBC) [Entitic vol] 89.9 fL Normal 80.0-94.0 [facility] Comment on above: Performed By: #### C BC #### [facility] [address] [address] [address] Demetria Jain MONO # 0.7 103/ul Normal 0.3-0.8 [facility] Comment on above: Performed By: #### C BC #### [facility] [address] [address] [address] Demetria Jain Monocytes/100 WBC (Bld) 6.3 % Normal 1.7-12.0 [facility] Comment on above: Performed By: #### C BC #### [facility] [address] [address] [address] Demetria Jain NEUT # 8.8 103/ul Critically high 1.4-6.5 [facility] Comment on above: Performed By: #### C BC #### [facility] [address] [place] [address] Dr. Demetria Jain Neutrophils/100 WBC (Bld) 78.5 % Critically high 43.0-75.0 [facility] Comment on above: Performed By: #### C BC #### [facility] [address] [address] [address] Demetria Jain Platelet mean volume (Bld) [Entitic vol] 10.6 fL Normal 9.5-13.5 [facility] Comment on above: Performed By: #### C BC #### [facility] [address] [address] [address] Demetria Jain PLT 226 103/ul Normal 150-450 [facility] Comment on above: Performed By: #### C BC #### [facility] [address] [address] [address] Demetria Jain RBC 4.24 106/ul Critically low 4.70-6.10 [facility] Comment on above: Performed By: #### C BC #### [facility] [address] [address] [address] Demetria Jain WBC 11.2 103/ul Critically high 4.0-11.0 [facility] Comment on above: Performed By: #### C BC #### [facility] [address] [address] [address] ABD/PELV W CONon 04-23-[address] ABD/PELV W CON CLINICAL HISTORY: ABDOMINAL DISTENSION (GASEOUS). Right and left upper abdominal pain. EXAMINATION: Enhanced CT scan of the abdomen and pelvis: 04/23/2021. COMPARISON: None. TECHNIQUE: 3.75 mm axial images from lung bases through ischial tuberosities following administration of intravenous contrast were obtained. No oral contrast was utilized. Sagittal and coronal reconstructions were also performed. Dose reduction techniques were achieved by using automated exposure control and/or adjustment of mA and/or kV according to patient size and/or use of iterative reconstruction technique. FINDINGS: There are no focal abnormalities of the visualized lung bases. The visualized cardiac and posterior mediastinal structures seem normal. There are calcifications of the mitral annulus. CT ABDOMEN: The liver seems somewhat low in density, with fatty liver without focal lesions. There is cholelithiasis. The spleen, pancreas, and adrenal glands appear normal. There is a nonobstructing calculus in the lower pole of the left kidney, measuring approximately 6 mm in size. There is a small 3 mm calculus in the midpole of the right kidney. There is no hydronephrosis or ureterolithiasis. The abdominal aorta is mildly atherosclerotic. There is no retroperitoneal or mesenteric adenopathy. The bowel loops are of normal caliber. There is a normal appendix. CT PELVIS: There are a few scattered diverticula in the colon. The bladder seems normal. The prostate is normal in size. There is no pelvic adenopathy. On the delayed phase images there are no filling defects at the base of the bladder. There are no focal fluid collections. There is no lytic or sclerotic lesion involving the visualized osseous structures. IMPRESSION: 1. No obvious explanation for bilateral upper abdominal pain. 2. Cholelithiasis but no acute cholecystitis. 3. Bilateral nonobstructing renal calculi. There is no obstructive uropathy. 4. Normal appendix. 5. Diverticulosis without diverticulitis. Electronically authenticated by: EDIN SELF Date: 2021-04-23 21:42 Normal [facility] ER URINE PROFILEon Bilirubin Ql (U) Negative Normal NEGATIVE [facility] Comment on above: Performed By: #### E RUR #### [facility] [address] [place] [address] Dr. Demetria Jain Clarity (U) CLEAR Normal CLEAR [facility] Comment on above: Performed By: #### E RUR #### [facility] [address] [place] [address] Dr. Demetria Jain Color (U) LT. YELLOW Normal YELLOW [facility] Comment on above: Performed By: #### E RUR #### [facility] [address] [place] [address] Dr. Demetria Jain ERUAHD A micrscopic examina tion will be performed if indicated. Normal [facility] Comment on above: Performed By: #### E RUR #### [facility] [address] [place] [address] Dr. Demetria Jain Glucose Ql (U) Negative Normal NEGATIVE [facility] Comment on above: Performed By: #### E RUR #### [facility] [address] [place] [address] Dr. Demetria Jain Hemoglobin Ql (U) Negative Normal NEGATIVE [facility] Comment on above: Performed By: #### E RUR #### [facility] [address] [place] [address] Dr. Demetria Jain Ketones Ql (U) Negative Normal NEGATIVE [facility] Comment on above: Performed By: #### E RUR #### [facility] [address] [place] [address] Dr. Demetria Jain LEUKOCYTES Negative Normal NEGATIVE [facility] Comment on above: Performed By: #### E RUR #### [facility] [address] [place] [address] Dr. Demetria Jain Nitrite Ql (U) Negative Normal NEGATIVE [facility] Comment on above: Performed By: #### E RUR #### [facility] [address] [place] [address] Dr. Demetria Jain pH (U) 5.5 [pH] Normal 5-9 [facility] Comment on above: Performed By: #### E RUR #### [facility] [address] [place] [address] Dr. Demetria Jain SPEC GRAVITY 1.025 Normal 1.005-<=1. 025 [facility] Comment on above: Performed By: #### E RUR #### [facility] [address] [place] [address] Dr. Demetria Jain UA PROTEIN Negative Normal NEGATIVE/ TRACE [facility] Comment on above: Performed By: #### E RUR #### [facility] [address] [place] [address] Dr. Demetria Jain UR MICRO IND NOT INDICATED Normal [facility] Comment on above: Performed By: #### E RUR #### [facility] [address] [place] [address] Dr. Demetria Jain Urobilinogen Qn (U) 0.2 {Cata'U}/dL Normal 0.2 - 1. 0 [facility] Comment on above: Performed By: #### E RUR #### [facility] [address] [place] [address] Dr. Demetria Jain LACTATE/LACTIC ACIDon 2020 Lactate [Moles/Vol] 1.7 mmol/L Normal 0.7-2.0 [facility] Comment on above: Performed By: #### L ACT #### [facility] [address] [place] [address] Dr. Demetria Jain LIPASEon 04-23-2021 Lipase [Catalytic activity/Vol] 68.0 U/L Normal 23.0-300.0 [facility] Comment on above: Performed By: #### C MP, LIPA #### [facility] [address] [place] [address] Dr. Demetria Jain PROF 14(COMP METB)on 021 Albumin [Mass/Vol] 3.7 g/dL Normal 3.5-5.0 [facility] Comment on above: Performed By: #### C RUSLAN LIPA #### [facility] [address] [place] [address] Dr. Demetria Jain Albumin/Globulin [Mass ratio] 1.0 {ratio} Normal [facility] Comment on above: Performed By: #### C MP, LIPA #### [facility] [address] [address] [address] Demetria Jain ALP [Catalytic activity/Vol] 99 U/L Normal 38-126 [facility] Comment on above: Performed By: #### C MP, LIPA #### [facility] [address] [address] [address] Demetria Jain ALT [Catalytic activity/Vol] 31 U/L Normal 21-72 [facility] Comment on above: Performed By: #### C MP, LIPA #### [facility] [address] [address] [address] Demetria Jain Anion gap [Moles/Vol] 15.0 mmol/L Normal Th [facility] Comment on above: Performed By: #### C MP, LIPA #### [facility] [address] [address] [address] Demetria Jain AST [Catalytic activity/Vol] 24 U/L Normal 17-59 [facility] Comment on above: Performed By: #### C MP, LIPA #### [facility] [address] [address] [address] Demetria Jain Bilirubin [Mass/Vol] 0.8 mg/dL Normal 0.2-1.3 [facility] Comment on above: Performed By: #### C MP, LIPA #### [facility] [address] [address] [address] Demetria Jain Calcium [Mass/Vol] 9.2 mg/dL Normal 8.4-10.2 [facility] Comment on above: Performed By: #### C MP, LIPA #### [facility] [address] [address] [address] Demetria Jain Chloride [Moles/Vol] 98 mmol/L Normal 98-107 [facility] Comment on above: Performed By: #### C MP, LIPA #### [facility] [address] [address] [address] Demetria Jain CO2 [Moles/Vol] 23.6 mmol/L Normal 22.0-30.0 [facility] Comment on above: Performed By: #### C MP, LIPA #### [facility] [address] [address] [address] Demetria Jain Creatinine [Mass/Vol] 0.93 mg/dL Normal 0.66-1.25 [facility] Comment on above: Performed By: #### C MP, LIPA #### [facility] [address] [address] [address] Demetria Jain EGFR-AF FAROESE >60 Normal >=60 [facility] Comment on above: Performed By: #### C MP, LIPA #### [facility] [address] [address] [address] Demetria Jain EGFR-NON AF FAROESE >60 Normal >=60 [facility] Comment on above: Performed By: #### C MP, LIPA #### [facility] [address] [address] [address] Demetria Jain Globulin (S) [Mass/Vol] 3.6 g/dL Normal [facility] Comment on above: Performed By: #### C MP, LIPA #### [facility] [address] [address] [address] Demetria Jain Glucose [Mass/Vol] 103 mg/dL Normal 74-106 [facility] Comment on above: Performed By: #### C MP, LIPA #### [facility] [address] [address] [address] Demetria Jain Potassium [Moles/Vol] 3.6 mmol/L Normal 3.4-5.0 [facility] Comment on above: Performed By: #### C MP, LIPA #### [facility] [address] [address] [address] Demetria Jain Protein [Mass/Vol] 7.3 g/dL Normal 6.1-8.2 [facility] Comment on above: Performed By: #### C MP, LIPA #### [facility] [address] [address] [address] Demetria Jain Sodium [Moles/Vol] 133 mmol/L Critically low 137-145 [facility] Comment on above: Performed By: #### C MP, LIPA #### [facility] [address] [place], [place] [address] Dr. Demetria Jain Urea nitrogen [Mass/Vol] 15.0 mg/dL Normal 9.0-20.0 [facility] Comment on above: Performed By: #### C MP, LIPA #### [facility] [address] [place], [place] [address] Dr. Demetria Jain Urea nitrogen/Creatinine [Mass ratio] 16.1 mg/mg Normal [facility] Comment on above: Performed By: #### C MP, LIPA #### [facility] [address] [place], [place] [address] Dr. Demetria Jain TROPONIN, HIGH SENSITIVITYon 04-23-2021 HSTROP 9.3 pg/mL Normal 4.0-42.2 [facility] Comment on above: Result Comment: CUT- OFF POINTS HAVE BEEN ESTABLISHED BASED ON THE FOURTH UNIVERSAL DEFINITIONS OF MYOCARDIAL INFARCTION. THE UPPER REFERENCE LIMIT (URL) OF TROPONIN, DEFINED THE 99TH PERCENTILE OF cTnI DISTRIBUTION IN A REFERENCE POPULATION, HAS BEEN CONFIRMED THE DECISION THRESHOLD FOR [place] DIAGNOSIS. Performed By: #### H STROPN ####[facility] [address] [place], [place] [address]OrDr. Demetria Jain Tobacco Screening.on 021 Fall risk assessment a) No falls within the last year [facility] [facility] 250 DO Work Phone: Tobacco use status CP b) No [facility] [facility] 250 DO Work Phone: CREATININEon 04-08-2020 Creatinine [Mass/Vol] 0.84 mg/dL Normal 0.70-1.33 [facility] Comment on above: Result Comment: For patients >49 years of age, the reference limit for Creatinine is approximately 13% higher for people identified as -Syrian. Performed By: #### 3 59, 506, 81506 #### [facility] [id number] [facility], [address] [place] [address] Medical Assistant Internal Medicine: Faraz Garcia MD Creatinine [Mass/Vol] 97 mL/min/1.73m2 Normal > OR = 6 0 [facility] Comment on above: Performed By: #### 3 75, 294, 12067 #### [facility] [address] Medical Assistant Internal Medicine: Faraz Garcia MD Creatinine [Mass/Vol] 113 mL/min/1.73m2 Normal > OR = 60 [facility] Comment on above: Performed By: #### 3 75, 294, 45384 #### [facility]-[address], [address] [place] [address] Medical Assistant Internal Medicine: Faraz Garcia MD ELECTROLYTE PANELon 04-08-20 20 Chloride [Moles/Vol] 102 mmol/L Normal 98-110 [facility] Comment on above: Performed By: #### 3 75, 294, 70182 #### [facility] [address] Medical Assistant Internal Medicine: Faraz Garcia MD CO2 [Moles/Vol] 28 mmol/L Normal 20-32 [facility] Comment on above: Performed By: #### 3 75, 294, 45486 #### [facility] [address] Medical Assistant Internal Medicine: Faraz Garcia MD Potassium [Moles/Vol] 3.6 mmol/L Normal 3.5-5.3 [facility] Comment on above: Performed By: #### 3 75, 294, 05506 #### [facility] [address] Medical Assistant Internal Medicine: Faraz Garcia MD Sodium [Moles/Vol] 139 mmol/L Normal 135-146 [facility] Comment on above: Performed By: #### 3 75, 294, 78040 #### [facility] [address] Medical Assistant Internal Medicine: Faraz Garcia MD UREA NITROGEN (BUN)on 2019 Urea nitrogen [Mass/Vol] 13 mg/dL Normal 7-25 [facility] Comment on above: Order Comment: FASTI NG: UNKNOWN Performed By: #### 3 75, 294, 11861 #### [facility] [address] [facility], [address] [place] [address] Medical Assistant Internal Medicine: Faraz Garcia MD PROGRESSon 06-17-2017 PROGRESS HNO ID: [id number] thor: Sukhwinder Casey: (none)Author Type: PhysicianType: Progress NotesFiled: 06/17/2017 3:24 PMNote Text:Heart and Vascular [facility] and [facility] Department of Cardiovascular MedicineOUTPATIENT VISIT DATE06/17/17OUTPATIENT VISIT TYPEESTABLKINDRED HOSP[facility] PHYSICIAN:Nirav Cain MD[address] [place] [address]Brgoq: [phone]: [phone] COMPLAINT:Coronary artery diseaseHISTORY OF PRESENT ILLNESS:Abraham Harry is a 56 year old male who presents today to follow up.History includes CAD, HTN, systolic HF, COPD. recent nuclear stress testwithout ischemia. No significant structural heart disease onechocardiogram and no sustained arrhythmias on Holter. He is working toimprove his diet and trying to be more active. He has been compliant withhis medications. Denies lightheadedness or syncope.PAST MEDICAL HISTORYDiagnosis Date- Abnormal stress test 09/04/12 EF 45%. Inferior fixed defect.- CAD (coronary artery disease) 07/11/15 50% mid RCA stenosis. 60?70 % distal RCA stenosis. Nonobstructivedisease in LAD/left circumflex. EF about 40%.- Cardiomyopathy ([facility]) 07/03/2015 EF 35?40%. Nonischemic- CHF (congestive heart failure) ([facility]) 07/11/15 EF 40%. EF improved to 50% on 10/17/15.- COPD (chronic obstructive pulmonary disease) ([facility])- HTN (hypertension)- Obesity- Obstructive sleep apnea- Plantar fasciitis Right footPAST SURGICAL HISTORYProcedure Laterality Date- HERNIA REPAIR HX 2012- PAST SURGICAL HISTORY OF gangrene removal- PAST SURGICAL HISTORY OF right foot surgery- RIGHT AND LEFT HEART CATH 07/11/15 50% mid RCA stenosis. 60?70 % distal RCA stenosis. Nonobstructivedisease in LAD/left circumflex. EF about 40%.- TONSILLECTOMY HXSocial HistorySubstance Use Topics- Smoking status: Former Smoker Packs/day: 0.50 Years: 20.00 Types: Cigarettes Quit date: 01/29/2008- Smokeless tobacco: Never Used- Alcohol use NoFAMILY HISTORYProblem Relation Age of Onset- Heart Father d. @ 44 heart aneurysm- Heart Father [place] x 4ALLERGIES:ALLERGIESNo Known AllergiesMEDICATIONS:SPIRI VA WITH HANDIHALER 18 mcg inhalation capsule INL CONTENTS OF 1 C ONCEDAILY USING HANDIHALERspironolactone (ALDACTONE) 50 mg tablet Take 1 tablet by mouth once daily.isosorbide mononitrate ER (IMDUR) 30 mg 24 hr tablet Take 1 tablet bymouth once daily.budesonide-formotero l (SYMBICORT) 160-4.5 mcg/actuation inhaler Inhale 2Puffs as instructed twice daily.irbesartan (AVAPRO) 300 mg tablet Take 0.5 tablets by mouth daily atbedtime.aspirin, enteric coated (ASPIR-LOW) 81 mg EC tablet Take 1 tablet by mouthonce daily.atorvastatin (LIPITOR) 40 mg tablet Take 1 tablet by mouth once daily.metoprolol succinate ER (TOPROL XL) 100 mg Tb24 Take 1 tablet by mouthonce daily.ALBUTEROL SULFATE (PROAIR HFA INHALATION) Inhale as instructed.REVIEW OF SYSTEMS:GENERAL: Negative for: Fever, Fatigue.CARDIAC: See HPI above.HEENT: Negative for: Ringing in Ears, nosebleeds, bleeding gums. AdequatedentitionNECK: Negative for: Pain, stiffnessRESPIRATORY: Negative for: Blood in sputum, wheezing.GASTROINTESTINAL: Negative for: Trouble swallowing, blood in stoolMUSCULOSKELETAL: R Shoulder painNEUROLOGIC: Negative for: Numbness, tremorsPSYCHIATRIC: Negative for: Anxiety, depressionSKIN: Negative for: Rashes, itchingHEMATOLOGICAL/LYMPH ATIC: Negative for: Easy bruising, easy bleeding,painful lymph nodesI personally interviewed, confirmed and edited the above information ifobtained by others.PHYSICAL EXAMINATION:BP 140/90 Pulse 93 Resp 18 Ht 180.3 cm (5' 11 ) Wt 121.6 kg (268lb) SpO2 98% BMI 37.38 kg/y5Ebhihqd: Well appearing, in no acute distress. ObeseNeuro: Oriented to person, place and time, alert, cooperative.Eyes: Extra ocular movements intact, pupils react to lightNeck: No jugular venous distention, no palpable thyromegaly.Heart: Regular rhythm, S1, S2 normal, no S3, no S4. No murmur.Lungs: Clear to auscultation bilaterally. Good respiratory effort.Abdomen: Soft, nontender, bowel sounds normal, no palpablehepatosplenomegaly Skin: No clubbing, no cyanosis.Extremities: Normal pulses in distal lower extremities. Absent lowerextremity edemaCARDIOVASCULAR MEDICINE TESTING:Echocardiogram: 06/10/17 the EF 63%, stage I diastolic dysfunction, nochange from study 10/17/15Nuclear stress test Lexiscan 06/10/17 no ischemia, normal EFHolter 06/10/17 rhythm is sinus occasional isolated PVCs and no sustainedarrhythmias, symptoms of palpitations and numb all over that did notcorrespond to any arrhythmiasCardiac Catheterization: . Left main was medium length vessel with minor luminal irregularity.2. Left anterior descending artery is large vessel, with two diagonalbranches, medium sized each. Left anterior descending artery has milddiffuse atherosclerosis between 20-30% luminal stenosis.3. Left circumflex medium sized vessel with three obtuse marginalbranches.Mild diffuse atherosclerosis.4. Right coronary artery is large and dominant vessel. The proximalsegment of the vessel has mild diffuse atherosclerosis. The mid segmentof the vessel has about 50% descrite stenotic lesion. Distal segment ofthe vessel involving the PLV branch has about 60-70% tubular hazylesion.I have personally reviewed the above Cardiovascular Medicine Testing.IMPRESSION/PLAN:Suman Harry is a 56 year old male with history of CAD, systolic HF,HTN here for follow upCoronary artery disease: 06/10/17 pharmacological nuclear stress testwithout ischemia. 07/11/15 LHC shows distal RCA 60-70% stenosis. I haverecommended the ATP III guidelines that suggest a multifactorial approachto lifestyle modification including a low fat (reduced intake of saturatedfats (< 7% of total energy intake) and cholesterol (< 200 mg/d)) and lowsodium diet, weight management, and moderate aerobic exercise >150 minutesper week as tolerated. Continue aspirin and statin.Heart failure: NYHA functional class II / ACC AHA class C systolic heartfailure that has normalized, most recent LVEF 50%. Pharmacotherapyincludes ARB, beta avani, long acting nitrate, aldactone. Reinforcedlow sodium diet, euvolemicDisposition: Follow up in clinic in 12 months. Pending studies: NoneCONTACT INFORMATION:Thank you for allowing us to assist in the care your patient. As alwaysplease do not hesitate to contact us with further questions or concerns.Sukhwinder Soto M.D.Dale CastanedaCtpartment of Cardiovascular MedicineSt. Charles Hospitalrt and Vascular InstituteAmy Ville [address] [place], [place] [address]Gicsbv: [phone] [facility] NM-NM Myocardial Spect Rest/ Stress 1 Day IMPORTon 06-10-2017 NM-NM Myocardial Spect Rest/Stress 1 Day IMPORT Images were obtained outside of [facility] [id number] Normal [facility] US-Echo Transthoracic w/ Con trast IMPORTon 06-10-2017 US-Echo Transthoracic w/ Contrast IMPORT Images were obtained outside of [facility] [id number] Normal [facility] CNOVon 05-31-2017 CNOV Office Visit (CARDFT) ABRAHAM HARRY ([id number]) 1960 MDate Time Provider Department05/31/17 3:00 PM SUKHWINDER SOTO During your visit today, we recorded the following information about you: Pulse Respiration Blood pressure Weight 89/minute 18/minute 126/80 119.3 kg Height 1.803 Emi Soto MD 05/31/2017 3:20 PM [facility] [place] Castaneda Department of Cardiovascular MedicineOUTPATIENT VISIT DATE05/31/17OUTPATIENT VISIT TYPEESTABLISHEDPRIMARY CARE PHYSICIAN:Nirav Cain MD[address] [address]Asqgw: [phone]: [phone] COMPLAINT:Preoperative risk assessmentHISTORY OF PRESENT ILLNESS:Abraham Harry is a 56 year old male who presents today to follow up. Historyincludes CAD, HTN, systolic HF, COPD. Not compliant with strict low salt diet.He has been less active in the past because he has had some degree ofexertional chest pain associated with shortness of breath and palpitations overthe last several weeks. He has been compliant with his medications Denieslightheadedness or syncope.PAST MEDICAL HISTORYDiagnosis Date- Abnormal stress test 09/04/12 EF 45%. Inferior fixed defect.- CAD (coronary artery disease) 07/11/15 50% mid RCA stenosis. 60?70 % distal RCA stenosis. Nonobstructive disease inLAD/left circumflex. EF about 40%.- Cardiomyopathy ([facility]) 07/03/2015 EF 35?40%. Nonischemic- CHF (congestive heart failure) ([facility]) 07/11/15 EF 40%. EF improved to 50% on 10/17/15.- COPD (chronic obstructive pulmonary disease) ([facility])- HTN (hypertension)- Obesity- Obstructive sleep apnea- Plantar fasciitis Right footPAST SURGICAL HISTORYProcedure Laterality Date- HERNIA REPAIR HX 2012- PAST SURGICAL HISTORY OF gangrene removal- PAST SURGICAL HISTORY OF right foot surgery- RIGHT ANDamp; LEFT HEART CATH 07/11/15 50% mid RCA stenosis. 60?70 % distal RCA stenosis. Nonobstructive disease inLAD/left circumflex. EF about 40%.- TONSILLECTOMY HXSocial HistorySubstance Use Topics- Smoking status: Former Smoker Packs/day: 0.50 Years: 20.00 Types: Cigarettes Quit date: 01/29/2008- Smokeless tobacco: Never Used- Alcohol use NoFAMILY HISTORYProblem Relation Age of Onset- Heart Father d. @ 44 heart aneurysm- Heart Father [place] x 4ALLERGIES:ALLERGIESNo Known AllergiesMEDICATIONS:SPIRI VA WITH HANDIHALER 18 mcg inhalation capsule INL CONTENTS OF 1 C ONCEDAILY USING HANDIHALERspironolactone (ALDACTONE) 50 mg tablet Take 1 tablet by mouth once daily.isosorbide mononitrate ER (IMDUR) 30 mg 24 hr tablet Take 1 tablet by mouthonce daily.budesonide-formotero l (SYMBICORT) 160-4.5 mcg/actuation inhaler Inhale 2 Puffsas instructed twice daily.irbesartan (AVAPRO) 300 mg tablet Take 0.5 tablets by mouth daily at bedtime.aspirin, enteric coated (ASPIR-LOW) 81 mg EC tablet Take 1 tablet by mouth oncedaily.atorvastatin (LIPITOR) 40 mg tablet Take 1 tablet by mouth once daily.metoprolol succinate ER (TOPROL XL) 100 mg Tb24 Take 1 tablet by mouth oncedaily.ALBUTEROL SULFATE (PROAIR HFA INHALATION) Inhale as instructed.REVIEW OF SYSTEMS:GENERAL: Negative for: Fever, Fatigue.CARDIAC: See HPI above.HEENT: Negative for: Ringing in Ears, nosebleeds, bleeding gums. AdequatedentitionNECK: Negative for: Pain, stiffnessRESPIRATORY: Negative for: Blood in sputum, wheezing.GASTROINTESTINAL: Negative for: Trouble swallowing, blood in stoolMUSCULOSKELETAL: R Shoulder painNEUROLOGIC: Negative for: Numbness, tremorsPSYCHIATRIC: Negative for: Anxiety, depressionSKIN: Negative for: Rashes, itchingHEMATOLOGICAL/LYMPH ATIC: Negative for: Easy bruising, easy bleeding, painfullymph nodesI personally interviewed, confirmed and edited the above information ifobtained by others.PHYSICAL EXAMINATION:BP 126/80 Pulse 89 Resp 18 Ht 180.3 cm (5' 11ANDquot;) Wt 119.3 kg (263lb) SpO2 98% BMI 36.68 kg/u1Obwcfvy: Well appearing, in no acute distress. ObeseNeuro: Oriented to person, place and time, alert, cooperative.Eyes: Extra ocular movements intact, pupils react to lightNeck: No jugular venous distention, no palpable thyromegaly.Heart: Regular rhythm, S1, S2 normal, no S3, no S4. No murmur.Lungs: Clear to auscultation bilaterally. Good respiratory effort.Abdomen: Soft, nontender, bowel sounds normal, no palpable hepatosplenomegalySkin: No clubbing, no cyanosis.Extremities: Normal pulses in distal lower extremities. Absent lower extremityedemaCARDIOVASCUL AR MEDICINE TESTING:Electrocardiogram: 11/10/16 Sinus, occasional PVCs, inferior Q wavesEchocardiogram: 10/16/16SUMMARY/CONCLUSION: 1. Normal left ventricular size with low normal global systolic function, EFabout 50%.2. Mildly dilated right ventricle with normal systolic function.3. Mild mitral valve regurgitation.Cardiac Catheterization: . Left main was medium length vessel with minor luminal irregularity.2. Left anterior descending artery is large vessel, with two diagonalbranches, medium sized each. Left anterior descending artery has milddiffuse atherosclerosis between 20-30% luminal stenosis.3. Left circumflex medium sized vessel with three obtuse marginal branches.Mild diffuse atherosclerosis.4. Right coronary artery is large and dominant vessel. The proximalsegment of the vessel has mild diffuse atherosclerosis. The mid segmentof the vessel has about 50% descrite stenotic lesion. Distal segment ofthe vessel involving the PLV branch has about 60-70% tubular hazylesion.I have personally reviewed the above Cardiovascular Medicine Testing.IMPRESSION/PLAN:Suman Harry is a 56 year old male with history of CAD, systolic HF, HTNhere for follow upCoronary artery disease: Exertional shortness of breath associated withpalpitations and chest pain. 07/11/15 LHC shows distal RCA 60-70% stenosis. Ihave recommended the ATP III guidelines that suggest a multifactorial approachto lifestyle modification including a low fat (reduced intake of saturated fats(ANDlt; 7% of total energy intake) and cholesterol (ANDlt; 200 mg/d)) and lowsodium diet, weight management, and moderate aerobic exercise ANDgt;150 minutesper week as tolerated. Continue aspirin and statin. Obtain nuclear stress testin addition echocardiogram in 48 hour Holter monitorHeart failure: NYHA functional class II / ACC AHA class C systolic heartfailure that has normalized, most recent LVEF 50%. Pharmacotherapy includesARB, beta avani, long acting nitrate, aldactone. Reinforced low sodium diet,euvolemicDisposition: Follow up in clinic in 2 weeks. Pending studies: Echo, nuclearstress test, 48 hour HolterCONTACT INFORMATION:Thank you for allowing us to assist in the care your patient. As always pleasedo not hesitate to contact us with further questions or concerns.Sukhwinder HampoleShania of Cardiovascular MedicineTuba City Regional Health Care Corporation and Vascular InstituteMercy Health Tiffin Hospital[address] [place].[place], [place] [address]Useyec: [phone] Referring Provider: NIRAV CAIN SR [[id number]]Allergies As of Date: 05/31/2017(No Known Allergies)Date Reviewed: 05/31/2017Reviewed by: Nico Starkey (Rn) BEN Aguilar - Fully AssessedPrimary Visit Diagnosis:Atherosclerosis of [place] coronary artery of [place] heart without angina pectoris [I25.10] Other Visit Diagnoses:Essential hypertension [I10] Systolic heart failure, unspecified heart failure chronicity (HCC) [I50.20]Order(s):ECHO [[id number]] Order #: [id number]: 1 FUTURE PHARMACOLOGIC STRESS W/NUC IMAGING [[id number]] Order #: [id number]: 1 NM CARDIAC PERF STRESS/PHARM [[id number]] Order #: [id number] FUTURE HOLTER MONITOR 48 HOUR [[id number]] Order #: [id number] FUTUREPrescriptions as of 05/31/2017 Sig: SPIRIVA WITH HANDIHALER 18 MC* INL CONTENTS OF 1 C ONCE MARTHA* SPIRONOLACTONE 50 MG TABLET Take 1 tablet by mouth once d* ISOSORBIDE MONONITRATE ER 30 * Take 1 tablet by mouth once d* BUDESONIDE-FORMOTEROL HFA 160* Inhale 2 Puffs as instructed * IRBESARTAN 300 MG TABLET Take 0.5 tablets by mouth david* ASPIRIN 81 MG TABLET,DELAYED * Take 1 tablet by mouth once d* ATORVASTATIN 40 MG TABLET Take 1 tablet by mouth once d* METOPROLOL SUCCINATE ER 100 M* Take 1 tablet by mouth once d* PROAIR HFA INHALATION Inhale as instructed.Medication notes this encounter SPIRIVA WITH HANDIHALER 18 MCG AND INHALATION CAPSULES >> Gerardo Sheehan RN 05/31/2017 2:52 PM >> NICO AGUILAR May 31, 2017 2:52 PM Received from: External Pharmacy >> Gerardo Sheehan RN 05/31/2017 2:52 PM >> NICO AGUILAR May 31, 2017 2:52 PMProblem List As Of Date 05/31/2017 Noted Resolved Preoperative cardiovascular examination [Z01.81*INVALID FOR* HTN (hypertension) [I10] INVALID FOR* Atherosclerosis of [place] coronary artery of na*INVALID FOR* Acute on chronic systolic congestive heart fail*INVALID FOR* Abnormal stress test [R94.39] INVALID FOR* Chronic systolic congestive heart failure (HCC)*INVALID FOR* Dyspnea, unspecified [R06.00] INVALID FOR* Bilateral low back pain with sciatica [M54.40] INVALID FOR* Tachycardia [R00.0] INVALID FOR*Disposition: Return in about 2 weeks (around 06/14/2017).Follow-up and Disposition History RecordedEncounter Number: [id number] Status:Closed by SUKHWINDER SOTO MD on 05/31/[address] [facility] PROGRESSon 05-26-2017 PROGRESS HNO ID: [id number] thor: Sukhwinder SotoService: (none)Author Type: PhysicianType: Progress NotesFiled: 05/31/2017 3:20 PMNote Text:Heart and Vascular InstituteRobclovis bapt[facility] and [facility] Department of Cardiovascular MedicineOUTPATIENT VISIT DATE05/31/17OUTPATIENT VISIT TYPEESTABLISHEDPRIMARY CARE PHYSICIAN:Nirav Cain MD[address] [facility] [address]Pdhpp: [phone]: [phone] COMPLAINT:Preoperative risk assessmentHISTORY OF PRESENT ILLNESS:Abraham Harry is a 56 year old male who presents today to follow up.History includes CAD, HTN, systolic HF, COPD. Not compliant with strictlow salt diet. He has been less active in the past because he has hadsome degree of exertional chest pain associated with shortness of breathand palpitations over the last several weeks. He has been compliant withhis medications Denies lightheadedness or syncope.PAST MEDICAL HISTORYDiagnosis Date- Abnormal stress test 09/04/12 EF 45%. Inferior fixed defect.- CAD (coronary artery disease) 07/11/15 50% mid RCA stenosis. 60?70 % distal RCA stenosis. Nonobstructivedisease in LAD/left circumflex. EF about 40%.- Cardiomyopathy (HCC) 07/03/2015 EF 35?40%. Nonischemic- CHF (congestive heart failure) ([facility]) 07/11/15 EF 40%. EF improved to 50% on 10/17/15.- COPD (chronic obstructive pulmonary disease) ([facility])- HTN (hypertension)- Obesity- Obstructive sleep apnea- Plantar fasciitis Right footPAST SURGICAL HISTORYProcedure Laterality Date- HERNIA REPAIR HX 2012- PAST SURGICAL HISTORY OF gangrene removal- PAST SURGICAL HISTORY OF right foot surgery- RIGHT AND LEFT HEART CATH 07/11/15 50% mid RCA stenosis. 60?70 % distal RCA stenosis. Nonobstructivedisease in LAD/left circumflex. EF about 40%.- TONSILLECTOMY HXSocial HistorySubstance Use Topics- Smoking status: Former Smoker Packs/day: 0.50 Years: 20.00 Types: Cigarettes Quit date: 01/29/2008- Smokeless tobacco: Never Used- Alcohol use NoFAMILY HISTORYProblem Relation Age of Onset- Heart Father d. @ 44 heart aneurysm- Heart Father [place] x 4ALLERGIES:ALLERGIESNo Known AllergiesMEDICATIONS:SPIRI VA WITH HANDIHALER 18 mcg inhalation capsule INL CONTENTS OF 1 C ONCEDAILY USING HANDIHALERspironolactone (ALDACTONE) 50 mg tablet Take 1 tablet by mouth once daily.isosorbide mononitrate ER (IMDUR) 30 mg 24 hr tablet Take 1 tablet bymouth once daily.budesonide-formotero l (SYMBICORT) 160-4.5 mcg/actuation inhaler Inhale 2Puffs as instructed twice daily.irbesartan (AVAPRO) 300 mg tablet Take 0.5 tablets by mouth daily atbedtime.aspirin, enteric coated (ASPIR-LOW) 81 mg EC tablet Take 1 tablet by mouthonce daily.atorvastatin (LIPITOR) 40 mg tablet Take 1 tablet by mouth once daily.metoprolol succinate ER (TOPROL XL) 100 mg Tb24 Take 1 tablet by mouthonce daily.ALBUTEROL SULFATE (PROAIR HFA INHALATION) Inhale as instructed.REVIEW OF SYSTEMS:GENERAL: Negative for: Fever, Fatigue.CARDIAC: See HPI above.HEENT: Negative for: Ringing in Ears, nosebleeds, bleeding gums. AdequatedentitionNECK: Negative for: Pain, stiffnessRESPIRATORY: Negative for: Blood in sputum, wheezing.GASTROINTESTINAL: Negative for: Trouble swallowing, blood in stoolMUSCULOSKELETAL: R Shoulder painNEUROLOGIC: Negative for: Numbness, tremorsPSYCHIATRIC: Negative for: Anxiety, depressionSKIN: Negative for: Rashes, itchingHEMATOLOGICAL/LYMPH ATIC: Negative for: Easy bruising, easy bleeding,painful lymph nodesI personally interviewed, confirmed and edited the above information ifobtained by others.PHYSICAL EXAMINATION:BP 126/80 Pulse 89 Resp 18 Ht 180.3 cm (5' 11 ) Wt 119.3 kg (263lb) SpO2 98% BMI 36.68 kg/t9Pkwprro: Well appearing, in no acute distress. ObeseNeuro: Oriented to person, place and time, alert, cooperative.Eyes: Extra ocular movements intact, pupils react to lightNeck: No jugular venous distention, no palpable thyromegaly.Heart: Regular rhythm, S1, S2 normal, no S3, no S4. No murmur.Lungs: Clear to auscultation bilaterally. Good respiratory effort.Abdomen: Soft, nontender, bowel sounds normal, no palpablehepatosplenomegaly Skin: No clubbing, no cyanosis.Extremities: Normal pulses in distal lower extremities. Absent lowerextremity edemaCARDIOVASCULAR MEDICINE TESTING:Electrocardiogram: 11/10/16 Sinus, occasional PVCs, inferior Q wavesEchocardiogram: 10/16/16SUMMARY/CONCLUSION: 1. Normal left ventricular size with low normal global systolic function,EF about 50%.2. Mildly dilated right ventricle with normal systolic function.3. Mild mitral valve regurgitation.Cardiac Catheterization: . Left main was medium length vessel with minor luminal irregularity.2. Left anterior descending artery is large vessel, with two diagonalbranches, medium sized each. Left anterior descending artery has milddiffuse atherosclerosis between 20-30% luminal stenosis.3. Left circumflex medium sized vessel with three obtuse marginalbranches.Mild diffuse atherosclerosis.4. Right coronary artery is large and dominant vessel. The proximalsegment of the vessel has mild diffuse atherosclerosis. The mid segmentof the vessel has about 50% descrite stenotic lesion. Distal segment ofthe vessel involving the PLV branch has about 60-70% tubular hazylesion.I have personally reviewed the above Cardiovascular Medicine Testing.IMPRESSION/PLAN:Suman Harry is a 56 year old male with history of CAD, systolic HF,HTN here for follow upCoronary artery disease: Exertional shortness of breath associated withpalpitations and chest pain. 07/11/15 [facility] shows distal RCA 60-70%stenosis. I have recommended the ATP III guidelines that suggest amultifactorial approach to lifestyle modification including a low fat(reduced intake of saturated fats (< 7% of total energy intake) andcholesterol (< 200 mg/d)) and low sodium diet, weight management, andmoderate aerobic exercise >150 minutes per week as tolerated. Continueaspirin and statin. Obtain nuclear stress test in addition echocardiogramin 48 hour Holter monitorHeart failure: NYHA functional class II / ACC AHA class C systolic heartfailure that has normalized, most recent LVEF 50%. Pharmacotherapyincludes ARB, beta avani, long acting nitrate, aldactone. Reinforcedlow sodium diet, euvolemicDisposition: Follow up in clinic in 2 weeks. Pending studies: Echo,nuclear stress test, 48 hour HolterCONTACT INFORMATION:Thank you for allowing us to assist in the care your patient. As alwaysplease do not hesitate to contact us with further questions or concerns.Sukhwinder Soto M.D.[facility] of Cardiovascular MedicineTuba City Regional Health Care Corporation and Vascular InstituteFrancis Ville [address], [place] [address]Mzpmjr: [phone] [facility] CNOVon 11-15-2016 CNOV Office Visit (ALIREZA) PIEROABRAHAM Ryann ([id number]) 1960 MDate Time Provider Department11/15/16 9:30 AM SUKHWINDER SOTO During your visit today, we recorded the following information about you: Pulse Respiration Blood pressure Weight 80/minute 18/minute 147/97 115.2 kg Height 1.803 mChetan Hampole, MD 11/15/2016 9:39 AM [facility] InstituteRobclovis [facility] Department of Cardiovascular MedicineOUTPATIENT VISIT DATE 11/15/16OUTPATIENT VISIT TYPEESTABLISHEDPRIMARY CARE PHYSICIAN:Nirav Cain MD[address] [place] [address]Cwbdq: [phone]: [phone] COMPLAINT:Preoperative risk assessmentHISTORY OF PRESENT ILLNESS:Abraham Harry is a 56 year old male who presents today to follow up. Historyincludes CAD, HTN, systolic HF, COPD. Dr Hogan to perform shoulder surgery nextTuesday for rotator cuff repair. Not compliant with strict low salt diet.Remains active, kayaks, hikes. Walks on treadmill. Denies chest pain,orthopnea, cough, edema, palpitations, PND, lightheadedness or syncope.PAST MEDICAL HISTORYDiagnosis Date- Abnormal stress test 09/04/12 EF 45%. Inferior fixed defect.- CAD (coronary artery disease) 07/11/15 50% mid RCA stenosis. 60?70 % distal RCA stenosis. Nonobstructive disease inLAD/left circumflex. EF about 40%.- Cardiomyopathy ([facility]) 07/03/2015 EF 35?40%. Nonischemic- CHF (congestive heart failure) ([facility]) 07/11/15 EF 40%. EF improved to 50% on 10/17/15.- COPD (chronic obstructive pulmonary disease) ([facility])- HTN (hypertension)- Obesity- Obstructive sleep apnea- Plantar fasciitis Right footPAST SURGICAL [id number]: HERNIA REPAIR HXNo date: PAST SURGICAL HISTORY OF Comment: gangrene removalNo date: PAST SURGICAL HISTORY OF Comment: right foot surgery07/11/15: RIGHT ANDamp; LEFT HEART CATH Comment: 50% mid RCA stenosis. 60?70 % distal RCA stenosis. Nonobstructive disease in LAD/left circumflex. EF about 40%.No date: TONSILLECTOMY HXSocial HistorySubstance Use Topics- Smoking status: Former Smoker Packs/day: 0.50 Years: 20.00 Types: Cigarettes Quit date: 01/29/2008- Smokeless tobacco: Never Used- Alcohol use NoFAMILY HISTORY Heart Father Comment: d. @ 44 heart aneurysm Heart Father Comment: [place] x 4ALLERGIES:ALLERGIESNo Known AllergiesMEDICATIONS:tamraa nolactone (ALDACTONE) 50 mg tablet Take 1 tablet by mouth once daily.isosorbide mononitrate ER (IMDUR) 30 mg 24 hr tablet Take 1 tablet by mouthonce daily.budesonide-formotero l (SYMBICORT) 160-4.5 mcg/actuation inhaler Inhale 2 Puffsas instructed twice daily.irbesartan (AVAPRO) 300 mg tablet Take 0.5 tablets by mouth daily at bedtime.aspirin, enteric coated (ASPIR-LOW) 81 mg EC tablet Take 1 tablet by mouth oncedaily.atorvastatin (LIPITOR) 40 mg tablet Take 1 tablet by mouth once daily.metoprolol succinate ER (TOPROL XL) 100 mg Tb24 Take 1 tablet by mouth oncedaily.ALBUTEROL SULFATE (PROAIR HFA INHALATION) Inhale as instructed.REVIEW OF SYSTEMS:GENERAL: Negative for: Fever, Fatigue.CARDIAC: See HPI above.HEENT: Negative for: Ringing in Ears, nosebleeds, bleeding gums. AdequatedentitionNECK: Negative for: Pain, stiffnessRESPIRATORY: Negative for: Blood in sputum, wheezing.GASTROINTESTINAL: Negative for: Trouble swallowing, blood in stoolMUSCULOSKELETAL: R Shoulder painNEUROLOGIC: Negative for: Numbness, tremorsPSYCHIATRIC: Negative for: Anxiety, depressionSKIN: Negative for: Rashes, itchingHEMATOLOGICAL/LYMPH ATIC: Negative for: Easy bruising, easy bleeding, painfullymph nodesI personally interviewed, confirmed and edited the above information ifobtained by others.PHYSICAL EXAMINATION:BP 147/97 Pulse 80 Resp 18 Ht 180.3 cm (5' 11ANDquot;) Wt 115.2 kg (254lb) SpO2 96% BMI 35.43 kg/d4Lzhtgiu: Well appearing, in no acute distress. ObeseNeuro: Oriented to person, place and time, alert, cooperative.Eyes: Extra ocular movements intact, pupils react to lightNeck: No jugular venous distention, no palpable thyromegaly.Heart: Regular rhythm, S1, S2 normal, no S3, no S4. No murmur.Lungs: Clear to auscultation bilaterally. Good respiratory effort.Abdomen: Soft, nontender, bowel sounds normal, no palpable hepatosplenomegalySkin: No clubbing, no cyanosis.Extremities: Normal pulses in distal lower extremities. Absent lower extremityedemaCARDIOVASCUL AR MEDICINE TESTING:Electrocardiogram: 11/10/16 Sinus, occasional PVCs, inferior Q wavesEchocardiogram: 10/16/16SUMMARY/CONCLUSION: 1. Normal left ventricular size with low normal global systolic function, EFabout 50%.2. Mildly dilated right ventricle with normal systolic function.3. Mild mitral valve regurgitation.Cardiac Catheterization: . Left main was medium length vessel with minor luminal irregularity.2. Left anterior descending artery is large vessel, with two diagonalbranches, medium sized each. Left anterior descending artery has milddiffuse atherosclerosis between 20-30% luminal stenosis.3. Left circumflex medium sized vessel with three obtuse marginal branches.Mild diffuse atherosclerosis.4. Right coronary artery is large and dominant vessel. The proximalsegment of the vessel has mild diffuse atherosclerosis. The mid segmentof the vessel has about 50% descrite stenotic lesion. Distal segment ofthe vessel involving the PLV branch has about 60-70% tubular hazylesion.I have personally reviewed the above Cardiovascular Medicine Testing.IMPRESSION/PLAN:Suman Harry is a 56 year old male with history of CAD, systolic HF, HTNhere for follow upPreoperative risk assessment for noncardiac surgery: Per ACC/AHA guidelines,this is a moderate risk surgery planned. Functional capacity is good (ANDgt;4mets). No active cardiac conditions (decompensated valvular heart disease,decompensated heart failure, acute coronary syndrome including unstable angina,uncontrolled significant arrhythmia). Clinical risk factors: CVA no; CHF yes;known CAD yes; DM no; CrANDgt;2 no. The patient does not meet criteria forfurther diagnostic cardiovascular testing and patient may proceed with surgerywith low but acceptable risk for perioperative cardiovascular events. OK tostop aspirin 7 days before surgery and resume as soon as able from a bleedingstandpoint.Coronar y artery disease: Stable, no evidence of angina on recent history.07/11/15 [facility] shows distal RCA 60-70% stenosis. I have recommended the ATP IIIguidelines that suggest a multifactorial approach to lifestyle modificationincluding a low fat (reduced intake of saturated fats (ANDlt; 7% of total energyintake) and cholesterol (ANDlt; 200 mg/d)) and low sodium diet, weightmanagement, and moderate aerobic exercise ANDgt;150 minutes per week astolerated. Continue aspirin and statin, see above for perioperativeantiplatelet managementHeart failure: NYHA functional class II / ACC AHA class C systolic heartfailure that has normalized, most recent LVEF 50%. Pharmacotherapy includesARB, beta avani, long acting nitrate, aldactone. Stable symptoms at home. Nochange in pharmacotherapy today. Reinforced low sodium diet. Euvolemic.Disposition: Follow up in clinic in 6 months. Pending studies: noneCONTACT INFORMATION:Thank you for allowing us to assist in the care your patient. As always pleasedo not hesitate to contact us with further questions or concerns.Sukhwinder Soto M.D.[facility] of Cardiovascular MedicineHeart and Vascular Institute[address] [address]Tumoyg: [phone] Referring Provider: RYLAN HOGAN [[id number]]Allergies As of Date: 11/15/2016(No Known Allergies)Date Reviewed: 11/15/2016Reviewed by: Nico Starkey (Rn) BEN Aguilar - Fully AssessedReason for Visit: Cardiac Clearance [4105]Primary Visit Diagnosis:Atherosclerosis of [place] coronary artery of [place] heart without angina pectoris [I25.10] Other Visit Diagnoses:Preoperative cardiovascular examination [Z01.810] Essential hypertension [I10] Systolic heart failure, unspecified heart failure chronicity (HCC) [I50.20]Prescriptions as of 11/15/2016 Sig: SPIRONOLACTONE 50 MG TABLET Take 1 tablet by mouth once d* ISOSORBIDE MONONITRATE ER 30 * Take 1 tablet by mouth once d* BUDESONIDE-FORMOTEROL HFA 160* Inhale 2 Puffs as instructed * IRBESARTAN 300 MG TABLET Take 0.5 tablets by mouth david* ASPIRIN 81 MG TABLET,DELAYED * Take 1 tablet by mouth once d* ATORVASTATIN 40 MG TABLET Take 1 tablet by mouth once d* METOPROLOL SUCCINATE ER 100 M* Take 1 tablet by mouth once d* PROAIR HFA INHALATION Inhale as instructed.Problem List As Of Date 11/15/2016 Noted Resolved Preoperative cardiovascular examination [Z01.81*INVALID FOR* HTN (hypertension) [I10] INVALID FOR* Atherosclerosis of [place] coronary artery of na*INVALID FOR* Acute on chronic systolic congestive heart fail*INVALID FOR* Abnormal stress test [R94.39] INVALID FOR* Chronic systolic congestive heart failure (HCC)*INVALID FOR* Dyspnea, unspecified [R06.00] INVALID FOR* Bilateral low back pain with sciatica [M54.40] INVALID FOR* Tachycardia [R00.0] INVALID FOR*Disposition: Return in about 6 months (around 05/18/2017).Follow-up and Disposition History RecordedEncounter Number: [id number] Status:Closed by SUKHWINDER SOTO MD on 11/15/[address] [facility] PROGRESSon 11-10-2016 PROGRESS HNO ID: [id number] thor: Sukhwinder SotoSernaseeme: (none)Author Type: PhysicianType: Progress NotesFiled: 11/15/2016 9:39 AMNote Text:[facility] and [facility] Department of Cardiovascular MedicineOUTPATIENT VISIT DATE 11/15/16OUTPATIENT VISIT TYPEESTABLISHEDPRIMARY CARE PHYSICIAN:Nirav Cain MD[address] [facility] [address]Xzfxl: [phone]: [phone] COMPLAINT:Preoperative risk assessmentHISTORY OF PRESENT ILLNESS:Abraham Harry is a 56 year old male who presents today to follow up.History includes CAD, HTN, systolic HF, COPD. Dr Hogan to perform shouldersurgery next Tuesday for rotator cuff repair. Not compliant with strictlow salt diet. Remains active, kayaks, hikes. Walks on treadmill. Denieschest pain, orthopnea, cough, edema, palpitations, PND, lightheadedness orsyncope.PAST MEDICAL HISTORYDiagnosis Date- Abnormal stress test 09/04/12 EF 45%. Inferior fixed defect.- CAD (coronary artery disease) 07/11/15 50% mid RCA stenosis. 60?70 % distal RCA stenosis. Nonobstructivedisease in LAD/left circumflex. EF about 40%.- Cardiomyopathy (HCC) 07/03/2015 EF 35?40%. Nonischemic- CHF (congestive heart failure) ([facility]) 07/11/15 EF 40%. EF improved to 50% on 10/17/15.- COPD (chronic obstructive pulmonary disease) ([facility])- HTN (hypertension)- Obesity- Obstructive sleep apnea- Plantar fasciitis Right footPAST SURGICAL [id number]: HERNIA REPAIR HXNo date: PAST SURGICAL HISTORY OF Comment: gangrene removalNo date: PAST SURGICAL HISTORY OF Comment: right foot surgery07/11/15: RIGHT AND LEFT HEART CATH Comment: 50% mid RCA stenosis. 60?70 % distal RCA stenosis. Nonobstructive disease in LAD/left circumflex. EF about 40%.No date: TONSILLECTOMY HXSocial HistorySubstance Use Topics- Smoking status: Former Smoker Packs/day: 0.50 Years: 20.00 Types: Cigarettes Quit date: 01/29/2008- Smokeless tobacco: Never Used- Alcohol use NoFAMILY HISTORY Heart Father Comment: d. @ 44 heart aneurysm Heart Father Comment: [place] x 4ALLERGIES:ALLERGIESNo Known AllergiesMEDICATIONS:tamara nolactone (ALDACTONE) 50 mg tablet Take 1 tablet by mouth once daily.isosorbide mononitrate ER (IMDUR) 30 mg 24 hr tablet Take 1 tablet bymouth once daily.budesonide-formotero l (SYMBICORT) 160-4.5 mcg/actuation inhaler Inhale 2Puffs as instructed twice daily.irbesartan (AVAPRO) 300 mg tablet Take 0.5 tablets by mouth daily atbedtime.aspirin, enteric coated (ASPIR-LOW) 81 mg EC tablet Take 1 tablet by mouthonce daily.atorvastatin (LIPITOR) 40 mg tablet Take 1 tablet by mouth once daily.metoprolol succinate ER (TOPROL XL) 100 mg Tb24 Take 1 tablet by mouthonce daily.ALBUTEROL SULFATE (PROAIR HFA INHALATION) Inhale as instructed.REVIEW OF SYSTEMS:GENERAL: Negative for: Fever, Fatigue.CARDIAC: See HPI above.HEENT: Negative for: Ringing in Ears, nosebleeds, bleeding gums. AdequatedentitionNECK: Negative for: Pain, stiffnessRESPIRATORY: Negative for: Blood in sputum, wheezing.GASTROINTESTINAL: Negative for: Trouble swallowing, blood in stoolMUSCULOSKELETAL: R Shoulder painNEUROLOGIC: Negative for: Numbness, tremorsPSYCHIATRIC: Negative for: Anxiety, depressionSKIN: Negative for: Rashes, itchingHEMATOLOGICAL/LYMPH ATIC: Negative for: Easy bruising, easy bleeding,painful lymph nodesI personally interviewed, confirmed and edited the above information ifobtained by others.PHYSICAL EXAMINATION:BP 147/97 Pulse 80 Resp 18 Ht 180.3 cm (5' 11 ) Wt 115.2 kg (254lb) SpO2 96% BMI 35.43 kg/e1Myfporo: Well appearing, in no acute distress. ObeseNeuro: Oriented to person, place and time, alert, cooperative.Eyes: Extra ocular movements intact, pupils react to lightNeck: No jugular venous distention, no palpable thyromegaly.Heart: Regular rhythm, S1, S2 normal, no S3, no S4. No murmur.Lungs: Clear to auscultation bilaterally. Good respiratory effort.Abdomen: Soft, nontender, bowel sounds normal, no palpablehepatosplenomegaly Skin: No clubbing, no cyanosis.Extremities: Normal pulses in distal lower extremities. Absent lowerextremity edemaCARDIOVASCULAR MEDICINE TESTING:Electrocardiogram: 11/10/16 Sinus, occasional PVCs, inferior Q wavesEchocardiogram: 10/16/16SUMMARY/CONCLUSION: 1. Normal left ventricular size with low normal global systolic function,EF about 50%.2. Mildly dilated right ventricle with normal systolic function.3. Mild mitral valve regurgitation.Cardiac Catheterization: . Left main was medium length vessel with minor luminal irregularity.2. Left anterior descending artery is large vessel, with two diagonalbranches, medium sized each. Left anterior descending artery has milddiffuse atherosclerosis between 20-30% luminal stenosis.3. Left circumflex medium sized vessel with three obtuse marginalbranches.Mild diffuse atherosclerosis.4. Right coronary artery is large and dominant vessel. The proximalsegment of the vessel has mild diffuse atherosclerosis. The mid segmentof the vessel has about 50% descrite stenotic lesion. Distal segment ofthe vessel involving the PLV branch has about 60-70% tubular hazylesion.I have personally reviewed the above Cardiovascular Medicine Testing.IMPRESSION/PLAN:Suman Harry is a 56 year old male with history of CAD, systolic HF,HTN here for follow upPreoperative risk assessment for noncardiac surgery: Per ACC/AHAguidelines, this is a moderate risk surgery planned. Functional capacityis good (>4 mets). No active cardiac conditions (decompensated valvularheart disease, decompensated heart failure, acute coronary syndromeincluding unstable angina, uncontrolled significant arrhythmia). Clinicalrisk factors: CVA no; CHF yes; known CAD yes; DM no; Cr>2 no. The patientdoes not meet criteria for further diagnostic cardiovascular testing andpatient may proceed with surgery with low but acceptable risk forperioperative cardiovascular events. OK to stop aspirin 7 days beforesurgery and resume as soon as able from a bleeding standpoint.Coronary artery disease: Stable, no evidence of angina on recent history.07/11/15 [facility] shows distal RCA 60-70% stenosis. I have recommended the ATPIII guidelines that suggest a multifactorial approach to lifestylemodification including a low fat (reduced intake of saturated fats (< 7%of total energy intake) and cholesterol (< 200 mg/d)) and low sodium diet,weight management, and moderate aerobic exercise >150 minutes per week astolerated. Continue aspirin and statin, see above for perioperativeantiplatelet managementHeart failure: NYHA functional class II / ACC AHA class C systolic heartfailure that has normalized, most recent LVEF 50%. Pharmacotherapyincludes ARB, beta avani, long acting nitrate, aldactone. Stablesymptoms at home. No change in pharmacotherapy today. Reinforced lowsodium diet. Euvolemic.Disposition: Follow up in clinic in 6 months. Pending studies: noneCONTACT INFORMATION:Thank you for allowing us to assist in the care your patient. As alwaysplease do not hesitate to contact us with further questions or concerns.Sukhwinder Soto M.D.[facility] of Cardiovascular MedicineSt. Charles Hospitalrt and Vascular InstituteAmy Ville [address], [place] [address]Wsmwhp: [phone] [facility] Vital Signs Date Time Vital Sign Value Performing Clinician Facility 08-02-2023 13:54-0400 Blood Pressure Location Marbin CEBALLOS [facility] 08-02-2023 13:54-0400 Diastolic blood pressure 82 mm[Hg] Marbin NILL [facility] 08-02-2023 13:54-0400 Heart rate 72 /min Marbin NILL [facility] [employer] 08-02-2023 13:54-0400 Respiratory rate 16 /min Marbin NILL [facility] [employer] 08-02-2023 13:54-0400 Systolic blood pressure 122 mm[Hg] Marbin NILL [facility] 07-12-2023 13:39-0400 Blood Pressure Location Marbin NILL [facility] 07-12-2023 13:39-0400 Diastolic blood pressure 88 mm[Hg] Marbin NILL [facility] 07-12-2023 13:39-0400 Heart rate 72 /min Marbin NILL [facility] 07-12-2023 13:39-0400 Respiratory rate 16 /min Marbin NILL [facility] 07-12-2023 13:39-0400 Systolic blood pressure 126 mm[Hg] Marbin NILL [facility] 03-22-2023 13:15-0500 Body height 180.34 cm Chan Taylor Other [employer] Other 03-22-2023 13:15-0500 Body mass index (BMI) [Ratio] 36.51 kg/m2 Chan Taylor Other [employer] Other 03-22-2023 13:15-0500 Body temperature 98.1 [degF] Chan Taylor Other [employer] Other 03-22-2023 13:15-0500 Body weight 118.75 kg Chan Taylor Other [employer] Other 03-22-2023 13:15-0500 Diastolic blood pressure 80 mm[Hg] Chan Taylor Other [employer] Other 03-22-2023 13:15-0500 Respiratory rate 20 /min Chan Taylor Other [employer] Other 03-22-2023 13:15-0500 SaO2% (BldA) [Mass fraction] 98 % Chan Taylor Other [employer] Other 03-22-2023 13:15-0500 Systolic blood pressure 140 mm[Hg] Chan Taylor Other [employer] Other 01-27-2023 08:32-0400 Body height 180.34 cm Nirav P AQH Work Phone: [facility] Work Phone: 01-27-2023 08:32-0400 Body mass index (BMI) [Ratio] 35.71 kg/m2 Nirav P House Work Phone: [facility] Work Phone: 01-27-2023 08:32-0400 Body surface area Derived from formula 2.34 m2 Nirav P House Work Phone: [facility] Work Phone: 01-27-2023 08:32-0400 Body weight 116.12 kg Nirav P House Work Phone: [facility] Work Phone: 01-27-2023 08:32-0400 Diastolic blood pressure 78 mm[Hg] Nirav P House Work Phone: [facility] Work Phone: 01-27-2023 08:32-0400 Heart rate 80 /min Nirav P House Work Phone: [facility] Work Phone: 01-27-2023 08:32-0400 Systolic blood pressure 110 mm[Hg] Nirav [employer] Work Phone: [facility] Work Phone: 01-26-2023 07:31-0400 Body temperature 98.2 [degF] Corie Bonilla MD Work Phone: [employer] 01-26-2023 07:31-0400 Diastolic blood pressure 82 mm[Hg] Corie Bonilla MD Work Phone: [employer] 01-26-2023 07:31-0400 Heart rate 74 /min Corie Bonilla MD Work Phone: [facility] [employer] 01-26-2023 07:31-0400 Respiratory rate 20 /min Corie Bonilla MD Work Phone: [facility] [employer] 01-26-2023 07:31-0400 SaO2% (BldA) [Mass fraction] 97 % Corie Bonilla MD Work Phone: [employer] 01-26-2023 07:31-0400 Systolic blood pressure 127 mm[Hg] Corie Bonilla MD Work Phone: [facility] [employer] 04-15-2022 15:07-0500 Body height 179.07 cm Nirav P AQH Work Phone: [facility] [employer] DO Work Phone: 04-15-2022 15:07-0500 Body mass index (BMI) [Ratio] 37.8 kg/m2 Nirav P AQH Work Phone: [facility] 250 DO Work Phone: 04-15-2022 15:07-0500 Body surface area Derived from formula 2.37 m2 Nirav P House Work Phone: [facility] 250 DO Work Phone: 04-15-2022 15:07-0500 Body weight 121.2 kg Nirav P House Work Phone: [facility] 250 DO Work Phone: 04-15-2022 15:07-0500 Diastolic blood pressure 80 mm[Hg] Nirav P House Work Phone: [facility] [address] DO Work Phone: 04-15-2022 15:07-0500 Heart rate 96 /min Nirav P House Work Phone: [facility] 250 DO Work Phone: 04-15-2022 15:07-0500 Systolic blood pressure 110 mm[Hg] Nirav P House Work Phone: [facility] [address] DO Work Phone: 04-16-2021 15:40-0500 Body height 180.34 cm Gabriel M Hoy Work Phone: [facility] 250 DO Work Phone: 04-16-2021 15:40-0500 Body mass index (BMI) [Ratio] 37.94 kg/m2 Gabriel M Hoy Work Phone: [facility] 250 DO Work Phone: 04-16-2021 15:40-0500 Body surface area Derived from formula 2.4 m2 Gabriel M Hoy Work Phone: [facility] 250 DO Work Phone: 04-16-2021 15:40-0500 Body weight 123.38 kg Gabriel M Hoy Work Phone: [facility] 250 DO Work Phone: 04-16-2021 15:40-0500 Diastolic blood pressure 84 mm[Hg] Gabriel M Hoy Work Phone: [facility] 250 DO Work Phone: 04-16-2021 15:40-0500 Heart rate 90 /min Gabriel Ibarra Hoy Work Phone: [facility] 250 DO Work Phone: 04-16-2021 15:40-0500 Systolic blood pressure 128 mm[Hg] Gabriel Ibarra Hoy Work Phone: [facility] 250 DO Work Phone: Encounters Encounter Date Encounter Type Care Provider Facility Start: 08-02-2023 End: 08-03-2023 ambulatory Marbin R NILL Facility: [facility] [employer] Start: 08-02-2023 End: 08-02-2023 Patient encounter procedure Marbin R NILL [facility] Start: 07-12-2023 End: 07-13-2023 ambulatory Marbin R NILL Facility: [facility] Start: 07-12-2023 End: 07-12-2023 Patient encounter procedure Marbin R NILL [facility] Start: 06-20-2023 End: 06-21-2023 ambulatory NIRAV P HOUSE [facility] Start: 04-20-2023 End: 04-21-2023 ambulatory NIRAV P HOUSE Facility:[facility] Start: 04-05-2023 End: 04-05-2023 ambulatory Kamal Chaban Facility:[facility] Start: 04-05-2023 End: 04-05-2023 ambulatory DO Nirav House Work Phone: [facility] Work Phone: Start: 04-05-2023 End: 04-05-2023 Patient encounter procedure DO Nirav House Work Phone: [facility] [place] Work Phone: Start: 04-04-2023 End: 04-04-2023 ambulatory Kamal Chaban Other [facility] Other Start: 04-04-2023 Telephone encounter Chan Taylor [facility] Start: 03-22-2023 Office outpatient vi sit 25 minutes Chan Taylor [facility] Start: 03-22-2023 End: 03-22-2023 ambulatory DO Nirav Cain Work Phone: [facility] Work Phone: Start: 03-22-2023 End: 03-22-2023 Patient encounter procedure DO Nirav Cain Work Phone: [facility] [place] Work Phone: Start: 02-15-2023 End: 02-16-2023 ambulatory NIRAV CAIN Facility:[facility] Start: 01-27-2023 End: 01-28-[address] Rey Baca II Facility: Start: 01-25-2023 End: 01-26-2023 Evaluation and management of inpatient SARIAH MAGDALENA [facility] Start: 01-25-2023 End: 01-26-2023 Evaluation and management of inpatient Corie Bonilla MD Work Phone: [facility] Start: 01-19-2023 End: 01-20-2023 ambulatory Marbin CEBALLOS Facility:[facility] Start: 01-19-2023 End: 01-19-2023 Patient encounter procedure Marbin CEBALLOS General Surgery [facility] [employer] Start: 01-11-2023 ambulatory Marbin CEBALLOS Facility:[facility] Start: 01-09-2023 End: 01-11-2023 ambulatory Marbin CEBALLOS Facility:[id number] Start: 12-21-2022 Patient encounter procedure Nirav Cain Work Phone: [facility] [facility] DO Work Phone: Start: 12-21-[address] Nirav Cain Facility:[id number] Start: 11-23-2022 Office outpatient vi sit 25 minutes Nirav P House Work Phone: [facility] Work Phone: Start: 11-23-[address] Rey Baca II Facility: Start: 09-30-2022 End: 09-30-2022 ambulatory Chan Taylor Facility:[facility] Start: 09-30-2022 End: 09-30-2022 ambulatory DO Nirav Cain Work Phone: [facility] Work Phone: Start: 09-30-2022 End: 09-30-2022 Patient encounter procedure DO Nirav Cain Work Phone: [facility]Res[facility] Work Phone: Start: 04-15-2022 Office outpatient vi sit 25 minutes Nirav P House Work Phone: [facility] [facility] DO Work Phone: Start: 04-15-[address] Rey Baca II Facility: Start: 04-01-2022 End: 04-01-2022 ambulatory Chan Taylor Other [employer] Other Start: 04-01-2022 Telephone encounter Chan Taylor [facility] Start: 03-02-2022 Rx Renewal Gabriel M Hoy Work Phone: [facility] [facility] DO Work Phone: Start: 02-22-2022 Encounter for genera l adult medical examination without abnormal findings DR NIRAV CAIN [facility] Start: 02-18-2022 End: 02-19-[address] NIRAV CAIN Facility:[facility] Start: 02-18-2022 End: 02-19-2022 Encounter for general adult medical examination without abnormal findings DR NIRAV CAIN Facility:[facility] Start: 11-05-2021 End: 11-05-2021 ambulatory Chan Taylor Other [employer] Other Start: 11-05-2021 Telephone encounter Chan Taylor [facility] Start: 10-23-2021 End: 10-23-2021 ambulatory Chan Taylor Other [facility] [employer] Other Start: 10-23-2021 Telephone encounter Chan Taylor [facility] Start: 07-29-2021 End: 07-29-2021 ambulatory Chan Taylor Other [employer] Other Start: 07-29-2021 Office outpatient vi sit 25 minutes Chan Taylor [facility] Start: 04-23-2021 End: 04-23-[address] NIRAV CAIN Facility:[facility] Start: 04-16-2021 Office outpatient vi sit 25 minutes Gabriel Stacey Riberayamel Work Phone: [facility] [facility] DO Work Phone: Start: 03-15-2021 Rx Renewal Rey alanis MD Work Phone: [facility] [facility] DO Work Phone: Start: 03-04-[address] NIRAV CAIN Facili ty:[facility] Start: 06-17-2017 End: 06-24-2017 Ambulatory [facility] Start: 05-31-2017 End: 06-06-2017 Ambulatory [facility] Start: 11-15-2016 End: 11-18-2016 Ambulatory [facility] Procedures Date Procedure Procedure Detail Performing Clinician Start: 01-26-2023 Hepatobiliary syst imaging including gallbladder Adri Estrella MD Work Phone: Start: 01-26-2023 Mri abdomen w/o cont rast material Corie Bonilla MD Work Phone: Start: 01-26-2023 Comprehensive metabo lic panel Corie Bonilla MD Work Phone: Start: 01-25-2023 End: 01-25-2023 CULTURE, BLOOD 1 Merritt Liao MD Work Phone: Start: 01-25-2023 Comprehensive metabo lic panel Corie Bonilla MD Work Phone: Start: 01-25-2023 History of cholecystectomy History of cholecystectomy Corie Bonilla MD Work Phone: Start: 01-10-2023 Laparoscopic cholecystectomy Marbin CEBALLOS Start: 09-30-2022 Plain chest X-ray DO Griselda Cain Work Phone: Start: 02-18-[address] JEANINE CAIN Comment on above: Performed By: #### P SAD #### [facility] [address] [place] [address] Dr. Demetria Jain Start: 09-17-2020 Colonoscopy Marbin YAO Comment on above: Colon polyp Start: 11-23-2016 Right shoulder arthroscopy with extensive glenohumeral debridement, subacromial decompression, mini-open rotator cuff repair Marbin FERNÁNDEZL Start: 07-11-2015 Rt/Lt Heart Catheterization Marbin FERNÁNDEZL Cardiac catheterization Gene [facility] M Tammy Work Phone: Colonoscopy Marbin NILL Excision of basal ce ll carcinoma Marbin NILL Comment on above: nasolabial fold Hernia repair Gabriel M Hoy Work Phone: Laparoscopy Gabriel Munoz Work Phone: Operation on skin Nirav Cain Work Phone: Operative procedure on foot Gabriel M Bacilioy Work Phone: Repair of right ingu inal hernia Marbin PRADEEPL Small intestine excision Jero hael LIN Tonsillectomy Gabriel M Hoy Work Phone: Tonsillectomy Marbin NILL Total colonoscopy Gabriel M Hoy Work Phone: Comment on above: august 30, 2020; Plan of Treatment Date Care Activity Detail Author Start: 03-22-2023 [facility] Start: 01-27-2023 End: 01-27-2023 Admission to same day surgery center 01/27/2023 11:00 AM EDT - 01/27/2023 12:30 PM EDT Surgery [facility] [address] [place] [address] Rodolfo Hernandez MD [address] [place] [address] ERCP ENDOSCOPIC RETROGRADE CHOLANGIOPANCREATOGRAPHY, STENT PLACEMENT (C-ARM) [facility] Comment on above: ERCP ENDOSCOPIC RETROGRADE CHOLANGIOPANC REATOGRAPHY, STENT PLACEMENT (C-ARM) Start: 01-27-2023 End: 01-27-2023 Ercp dx collection specimen brushing/washing ERCP ENDOSCOPIC RETROGRADE CHOLANGIOPANCREATOGRAPHY Bile duct leak 01/27/2023 11:00 AM EDT [facility] Start: 01-27-2023 FUV, Provider: Rey Baca, Status: Pen, Time: 8:40 AM FUV, Provider: Rey Baca, Status: Pen, Time: 8:40 AM [facility] 250 DO Work Phone: Start: 11-30-2022 Influenza vaccination Flu vaccine (#1) [facility] Start: 11-23-2022 FUV, Provider: Rey Baca, Status: Pen, Time: 9:50 AM FUV, Provider: Rey Baca, Status: Pen, Time: 9:50 [facility] Work Phone: Start: 04-15-2022 FUV, Provider: Rey Baca, Status: Pen, Time: 3:30 PM FUV, Provider: Rey Baca, Status: Pen, Time: 3:30 PM [facility] Work Phone: Start: 01-13-2022 FUV, Provider: Rey Baca, Status: Pen, Time: 3:30 PM FUV, Provider: Rey Baca, Status: Pen, Time: 3:30 PM [facility] Work Phone: Start: 04-02-2021 FUV, Provider: Rey Baca, Status: Pen, Time: 8:50 AM FUV, Provider: Rey Baca, Status: Pen, Time: 8:50 AM [facility] 250 DO Work Phone: Start: 11-14-2020 COVID-19 Vaccine (3 - Moderna series) COVID-19 Vaccine (3 - Moderna series) [facility] Start: 2012 Shingles vaccine (1 of 2) Shingles vaccine (1 of 2) [facility] Start: 10-15-2007 Screening for malignant neoplasm of colon [facility] Start: 1981 DTaP/Tdap/Td vaccine (1 - Tdap) DTaP/Tdap/Td vaccine (1 - Tdap) [facility] Start: 1980 Hepatitis C screening Hepatitis C screen [facility] Start: 1977 HIV screening HIV screen [facility] Start: 1974 Depression Screen Depression Screen [facility] Start: 1972 Lipid panel Lipids [facility] Alternaria alternata IgE Ab [Units/volume] in [facility] Syrian house dust mite IgE Ab [Units/volume] in [facility] Syrian [place] Ig E Ab [Units/volume] in [facility] Syrian [place] Ig E Ab [Units/volume] in [facility] Aspergillus fumigatu s IgE Ab [Units/volume] in [facility] Bermuda grass IgE Ab [Units/volume] in [facility] Boxelder IgE Ab [Units/volume] in [facility] Cat dander IgG Ab [Units/volume] in [facility] End: 01-27-2023 CBC W Auto Differential panel - Blood CBC with Auto Differential Lab Routine Daily for 3 Days starting 01/25/2023 until 01/27/2023, 2 completed [employer] Comment on above: Daily for 3 Days starting 01/25/2023 unt il 01/27/2023, 2 completed Cladosporium herbaru m IgE Ab [Units/volume] in Serum [facility] Cockroach IgE Ab [Units/volume] in Serum [facility] Common Ragweed IgE A b [Units/volume] in Serum [facility] End: 01-27-2023 Comprehensive metabolic 2000 panel - Serum or Plasma Comprehensive Metabolic Panel Lab Routine Daily for 3 Days starting 01/25/2023 until 01/27/2023, 2 completed [employer] Comment on above: Daily for 3 Days starting 01/25/2023 unt il 01/27/2023, 2 completed [place] IgE Ab [Units/volume] in Serum [facility] Culture, Blood 1 [employer] Dog dander IgE Ab [Units/volume] in Serum [facility] house dust mite IgE Ab [Units/volume] in [facility] IgE [Units/volume] i n Serum or Plasma [facility] Intermittent pulse oximetry Pulse Oximetry Spot Check Respiratory Care Routine As Needed until discontinued starting 01/25/2023 [employer] Comment on above: As Needed until discontinued starting Mountain Juniper IgE Ab [Units/volume] in Serum [facility] Mouse urine proteins IgE Ab [Units/volume] in [facility] Oxygen therapy [Minimum Data Set] Initiate Oxygen Therapy Protocol Respiratory Care Routine As Needed until discontinued starting 01/25/2023 [employer] Comment on above: As Needed until discontinued starting Pecan or Center [place] Pio e IgE Ab [Units/volume] in Serum [facility] Penicillium notatum IgE Ab [Units/volume] in Serum [facility] Rough Pigweed IgE Ab [Units/volume] in Serum [facility] Saltwort IgE Ab [Units/volume] in Serum [facility] Sheep Gore IgE Ab [Units/volume] in [facility] Sheep Gore IgE Ab [Units/volume] in Serum [facility] Silver Birch IgE Ab [Units/volume] in Serum [facility] Silver Birch IgE Ab [Units/volume] in Serum [facility] Benjy IgE Ab [Units/volume] in Serum [facility] Landers IgE Ab [Units/volume] in Serum [facility] White Konstantin IgE Ab [Units/volume] in Serum [facility] White Konstantin IgE Ab [Units/volume] in [facility] White Elm IgG Ab [Units/volume] in [facility] White mulberry IgE A b [Units/volume] in Serum [facility] White mulberry IgE A b [Units/volume] in Serum [facility] Schuyler IgE Ab [Units/volume] in [facility] Immunizations Immunization Date Immunization Notes Care Provider Fa cili 09-19-2020 Moderna COVID-19 Vaccine 100 MCG/0.5ML Intramuscular Suspension Gabriel Munoz Work Phone: General Surgery [employer] 08-22-2020 Moderna COVID-19 Vaccine 100 MCG/0.5ML Intramuscular Suspension Gabriel Ibarra Hoy Work Phone: General Surgery [employer] 01-30-2019 pneumococcal polysaccharide vaccine, 23 valent Gabriel Ibarra Hoy Work Phone: [facility] 250 DO Work Phone: NEGATED: Highlighted row has not occurred!07-12-2023 influenza virus vaccine, unspecified formulation Marbin CEBALLOS General Surgery [employer] Payers Date Payer Category Payer Private Health Insurance [facility] [id number] 2020 Medicare [id number] 1962 Unknown [id number] 1962 Unknown [id number] 1962 Unknown [id number] 2.16.840.1.642597.3.579.2.593 1962 Unknown [id number] 2.16.840.1.544924.3.579.2.1068 1962 Unknown [id number] 2.16.840.1.948935.3.579.2.356 1962 Unknown [id number] 2.16.840.1.590881.3.579.2.356 1962 Unknown [id number] 2.16.840.1.644046.3.579.2.356 1962 Unknown [id number] 2.16.840.1.940951.3.579.2.175 1962 Unknown [id number] 2.16.840.1.255373.3.579.2.727 1962 Unknown [id number] 2.16.840.1.216525.3.579.2.727 1962 Unknown [id number] 2.16.840.1.259772.3.579.2.727 1962 Unknown [id number] 2.16.840.1.962934.3.579.2.727 1962 Unknown [id number] 2.16.840.1.111148.3.579.2.718 1962 Unknown [id number] 2.16.840.1.082675.3.579.2.718 1962 Unknown [id number] 2.16.840.1.623981.3.579.2.718 1962 Unknown [id number] 2.16.840.1.434705.3.579.2.718 1959 Self-pay 1959 Unknown [id number] 2.16. [id number] Unknown Unknown [id number] 2.16.840.1.781734.3.579.2.531 Unknown [id number] 2.16.840.1.065160.3.579.2.531 Unknown [id number] 2.16.840.1.919712.3.579.2.531 Worker's Compensation [facility] [id number] Social History Date Type Detail Facility Start: 01-26-2023 Caffeine use Caffeine use -[facility] 250 DO Work Phone: Comment on above: 1 pot decaf coffee d aily; quit 2006 minimal sm oker; 1 pot coffee daily; Start: 01-26-2023 Sex Assigned At F [facility] Start: 09-01-2019 End: 07-12-2023 Tobacco smoking status DEIS Ex-smoker (finding) [facility] Start: 1960 Sex Assigned At Male F [facility] Tobacco smoking status Never Gener al Surgery [facility] Start: 01-26-2023 Tobacco smoking stat [facility] Never smoked tobacco [employer] Work Phone: Start: 01-26-2023 Tobacco use and exposure Smokeless tobacco non-user [facility] [employer] Start: 1960 Sex Assigned At Not on file [facility] [employer] Functional Status Date Assessment Result Facility 08-02-2023 Functional Status N/A [facility] 07-12-2023 Functional Status N/A [facility] 01-19-2023 Functional Status N/A [facility] Clinical Notes 02-25-2016 to 07-12-2023 Note Date & Type Note Facility 07-12-2023 Note Chief Complaint consultation for ventral hernia HPI Staff 62 year old male presents on consultation from Dr. Cain for ventral hernia. Reports noting bulge above incision from cholecystectomy completed 12/2022. He noted this 2 weeks ago after coughing episode. Reports occasional burning pain. Denies nausea, vomiting or bowel changes. No imaging completed. History of Present Illness 62 yo male with h/o CAD, CVA, COPD/asthma, htn, hyperlipidemia, referred for possible incisional hernia; patient reports bulge around supraumbilical port site incision that began several weeks ago after coughing episode; no skin changes, sore at times, reduces; no N/V or bowel changes; patient had LS cholecystectomy 12/2022 for gangrenous cholecystitis; abd operations also significant for exploratory laparotomy and sb resection via lower midline incision and RIHR; patient on Plavix and baby asa daily, no NSAID use; no tobacco use. no imaging. Review of Systems PHQ Score Initial Depression Screen Score: 0 SCORE ROS - Provider Constitutional: no fever, no sweats, no weight loss. Eyes: no glasses, no blurred vision, no visual loss. ENMT: no dentures, no hoarseness, no swallowing difficulties, no hearing loss, no ear infection(s), no nose bleeds. Cardiovascular: normal blood pressure, no chest pain, regular heartbeat, no heart murmur. Respiratory: no shortness of breath, no cough, no asthma, no wheezing. Gastrointestinal: no nausea, no vomiting, no diarrhea, no constipation, no blood in stool, no change in bowel habits, yes abdominal pain, no hepatitis. Genitourinary: no kidney stones, no urine infection, no dysuria. Musculoskeletal: no pain, no weakness. Skin: no changing moles, no rash, no skin lumps. Neurologic: no seizures, no epilepsy, no headache. Psychiatric: no emotional or psychiatric problem. Heme/Lymph: no bleeding problems, no anemia, no blood clots, no transfusions. Allergy/Immunologic: no swollen lymph nodes/glands, no IV drug abuse. Other: Additional ROS info: Except as noted in the above Review of Systems and in the History of Present Illness, all other systems have been reviewed and are negative or noncontributory. Physical Exam Vitals & Measurements HR: 72(Peripheral) RR: 16 BP: 126/88 HT: 71 in HT: 180 cm WT: 120 kg WT: 264 lb BMI: 37.04 HEENT: normal conjunctiva, sclera clear, no scleral icterus, EOM intact, PERRLA, oral mucosa moist without lesions. Neck: trachea midline, no mass, symmetric, no thyromegaly or nodules, no adenopathy Respiratory: lungs CTA, respirations non labored. Cardiovascular: regular rate and rhythm, no murmur, no pedal edema or varicosities. Gastrointestinal: obese, soft, non distended, no tenderness, no masses, weakness around supraumbilical port site, no skin changes, no palpable fascial defect, diastasis recti yes, no hepatosplenomegaly; normal bs Lymphatic: no cervical adenopathy, no supraclavicular adenopathy. Musculoskeletal: normal gait, digits and nails without infection, nodes, cyanosis, clubbing. Skin: no rashes, no lesions, no ulcers, no subcutaneous nodules, induration. Psychiatric/Neuro: oriented to time, place, person, judgement normal, affect appropriate for age, insight intact, no focal deficits. Tests: , review of old records completed , Assessment/Plan 1. Incisional hernia (K43.2: Incisional hernia without obstruction or gangrene) will obtain abd/pelvic ct scan with contrast for further evaluation, will call patient with results; he is to call with problems/questions; signs/symptoms of incarceration/strangulation of hernia explained in detail, and patient understands that he should seek prompt medical evaluation if they were to occur. Ordered: Creatinine CT Abdomen/Pelvis w/ Contrast 2. Epigastric pain (R10.13: Epigastric pain) see # 1 Ordered: Creatinine CT Abdomen/Pelvis w/ Contrast Follow-up No qualifying data available Problem List/Past Medical History Ongoing Acute gangrenous cholecystitis Acute on chronic systolic heart failure Asthma BMI 37.0-37.9, adult Chronic obstructive pulmonary disease Combined systolic and diastolic dysfunction Coronary atherosclerosis Epigastric pain History of basal cell carcinoma History of CVA (cerebrovascular accident) Hypercholesterolemia Hypertensive disorder Incisional hernia Morbid obesity Prediabetes Historical Cardiomyopathy Chronic obstructive lung disease COPD (chronic obstructive pulmonary disease) History of TIA (transient ischemic attack) HTN (hypertension) Obesity Plantar fasciitis Procedure/Surgical History Laparoscopic cholecystectomy (01/10/2023), Colonoscopy (09/17/2020), Right shoulder arthroscopy with extensive glenohumeral debridement, subacromial decompression, mini-open rotator cuff repair (11/23/2016), Rt/Lt Heart Catheterization (07/11/2015), Colonoscopy, Excision of basal cell carcinoma, Repair of right inguinal hernia, Tonsillectomy. Medications albuter (more content not included)... [facility] Comment on above: Result Comment: Elec tronically Signed By: LIN FENTON, Marbin Chaudhari\Date and Time Signed: 07/12/23 20:10 EDT 07-12-2023 Evaluation + Plan note Diagnostic Tests PendingCreatinine 07/12/23 General Surgery [facility] 03-22-2023 Evaluation note Encounter Date Diagnosis Assessment Notes Mar, Asthma with COPD (ICD-10 - J44.9) please arrange for dupixent if qualified [employer] Other 11-21-2023 Evaluation note* Encounter Date Diagnosis Assessment Notes Treatment Notes Treatment Clinical Notes Mar, Asthma with COPD (ICD-10 - J44.9) please arrange for dupixent if qualified Mar, Severe persistent asthma without complication (ICD-10 - J45.50) [employer] Other 09-27-2023 History of Present illness Narrative* Jennifer Melgar - 01/26/2023 5:38 PM EDT CLINICAL PHARMACY NOTE: MEDS TO BEDS Total # of Prescriptions Filled: 1 The following medications were delivered to the patient: cephalexin Additional Documentation: Pt signed form- filed sheet * Sariah Nichols MD - 01/26/2023 12:10 PM EDT Images from the original note were not included. [facility] Office: [phone] Rajat Worley DO, Nirav Leiva DO, Siva Ortiz DO, Amadou Robles DO, Travis Quinones MD, Urvashi Downs MD, Mickie Singletary MD, Corie Bonilla MD, Maynor Hurley MD, Sariah Nichols MD, Eliot Cline DO, Faiza Win MD, Luis Booth DO, Harsha Davis MD, Mason Sauceda MD, Marbin Worley DO, Jie Allen MD, Sean Linares DO, Jolene Fernández MD, Jhoana Fernandez MD, MD Jana, Shon Aranda MD, Sai Benitez MD, Merritt Liao MD, Elmo Toledo MD, Josie Harper MD, Nico Aldana DO, Anoop Blanco MD, Jaylon Galaviz MD, Chadd Mcmanus MD,Cass Granado, [employer], Billie Hilliard, BURAK,, Abraham Foote, BURAK, Radha Arredondo, SRINI, Keke Spencer, BURAK, Ni Kowalski, BURAK, Jeana Carrizales, BURAK, Milly Harrell, [employer], Arleen Panchal, BURAK, Elvira Godwin, [employer]ET TE[employer], Edelmira Catalan, [facility], Maribeth Oswald, BURAK, Lisa Pacheco, BURAK [facility] IN-PATIENT SERVICE [facility] Progress Note 01/26/2023 1:43 PM Name: Abraham Harry Acct: [id number] Room: [address] [place] [address] Day: 1 Admit Date: 01/25/2023 6:20 PM PCP: No primary care provider on file. Code Status: Full Code Subjective: C/C: Abdominal pain Interval History Status: . Pt is feeling much better today. He says his abdominal pain has resolved. He does not have any issues with urination anymore. Denies any chest pain or shortness of breath. No other acute issues overnight. LFTs are trending down Brief History: Per my colleague: 62-year-old male with past surgical history of hypertension, hypercholesterolemia, questionable CAD (patient follows with sustainability executive director because of sudden cardiac of his father at the age of 44 due to cardiac aneurysm and he said that sustainability executive director mentioned to him that he has some changes at the bottom of his heart that need to be monitored ), stroke 2020 on clopidogrel not on aspirin, cholecystectomy and bowel resection for acute necrosis done by Dr. Ceballos on 01/10. Patient presented to [employer] ED for acute onset abdominal pain that was started 30 minutes prior to the presentation. Pain was mostly on the right side of her abdomen at the periumbilical area. Patient did mention that he was having weak urinary stream for few days, overnight he was given Dilaudid for pain relief and after that when he went to the restroom he noticed that his urine stream all of a sudden got better, he could not see any stone. But he did feel that all of his abdominal pain is completely resolved. He was resting comfortably in the bed without any abdominal pain or nausea. Hemodynamically patient is stable. Lab work-up that was done at other facility ED showed transaminitis, elevated alkaline phosphatase and bilirubin, elevated lactic acid. CTA abdomen was inconclusivefor acute pathology. Surgeon at the referring facility do not think it is an acute abdomen or bowelrelated and suspicion of common bile duct stone however there is no CBD dilation on imaging. CT didshow nephrolithiasis. Discussed with GI team at [facility], transferring patient for possible CBD stone and GI evaluation. Medications: Allergies: No Known Allergies Current Meds: Scheduled Meds: clopidogrel 75 mg Oral Daily metoprolol succinate 50 mg Oral Daily sodium chloride flush 5-40 mL IntraVENous 2 times per day enoxaparin 40 mg SubCUTAneous Daily famotidine (PEPCID) injection 20 mg IntraVENous BID piperacillin-tazobactam 3,375 mg IntraVENous Q8H Continuous Infusions: sodium chloride sodium chloride 75 mL/hr at 01/25/232058 PRN Meds: albuterol, sodium chloride flush, sodium chloride, potassium chloride OR potassium alternative oral replacement OR potassium chloride, magnesium sulfate, ondansetron OR ondansetron, polyethylene glycol, acetaminophen OR acetaminophen Data: Past Medical History: has a past medical history of CAD (coronary artery disease), History of CVA (cerebrovascular accident), Hypercholesterolemia, and Hypertension. Social History: reports that he has never smoked. He has never used smokeless tobacco. Family History: Family History Problem Relation Age of Onset Heart Disease Father Diabetes Brother Diabetes Paternal Grandmother Vitals: BP 127/82 Pulse 74 Temp 98.2 F (36.8 C) (Oral) Resp 20 SpO2 97% Temp (24hrs), Av.1 F (36.7 C), Min:98 F (36.7 C), Max:98.2 F (36.8 C) No results for input(s): POCGLU in the last 72 hours. I/O (24Hr): No intake or output data in the 24 hours ending 01/26/23 1343 Labs: Hematology: Recent Labs 01/25/23202701/26/23 0637 WBC 8.0 7.1 RBC 3.53* 3.38* HGB 10.6* 10.3* HCT 32.9* 31.6* MCV 93.2 93.5 MCH 30.0 30.5 MCHC 32.2 32.6 RDW 13.8 13.6 PLT 300 249 MPV 10.4 10.7 INR -- 1.0 Chemistry: Recent Labs 01/25/23202701/26/23 0637 NA 139 138 K 4.3 3.8 CL 105 105 CO2 23 22 GLUCOSE 88 90 BUN 15 14 CREATININE 0.8 0.7 ANIONGAP 11 11 LABGLOM >60 >60 CALCIUM 8.7 8.6 LACTACIDWB 1.7 -- Recent Labs 01/25/23202701/26/23 0637 PROT 6.3* 6.0* LABALBU 3.8 3.6 AST 189* 93* ALT 114* 87* ALKPHOS 229* 209* BILITOT 0.8 0.9 ABG:No results found for: POCPH , PHART , PH , POCPCO2 , PKI3MVZ , PCO2 , POCPO2 , PO2ART , PO2 , POCHCO3 , NLR9EPZ , HCO3 , NBEA , PBEA , BEART , BE , THGBART , THB , HXT7FTI , YGJI9XQB , Y4EJJLTG , O2SAT , FIO2 Lab Results Component Value Date/Time SPECIAL R AC 11ML 01/25/2023 10:33 PM Lab Results Component Value Date/Time CULTURE NO GROWTH 12 HOURS 01/25/2023 10:33 PM Radiology: No results found. Physical Examination: General appearance: alert, cooperative and no distress Mental Status: oriented to person, place and time and normal affect Lungs: clear to auscultation bilaterally, normal effort Heart: regular rate and rhythm, no murmur Abdomen: soft, nontender, nondistended, normal bowel sounds, no masses, hepatomegaly, splenomegaly Extremities: no edema, redness, tenderness in the calves Skin: no gross lesions, rashes, induration Assessment: Hospital Problems Last Modified POA Transaminitis 01/25/2023 Yes Elevated bilirubin 01/25/2023 Yes Alkaline phosphatase elevation 01/25/2023 Yes History of cholecystectomy 01/25/2023 Yes History of bowel resection 01/25/2023 Yes Plan: Abdominal fvrz-eksylvwb-fjedgjkme concern for nephrolithiasis -patient thinks that he might have passed a stone. However he had elevated LFTs and was sent over here for GI evaluation Transaminitis-could be related to recent surgery that he had for the gallbladder. Rule out bile leak. GI has been consulted and plan for MRCP and HIDA scan today History of cholecystectomy and bowel resection-patient to follow-up with his surgeon. HIDA scan today for bile leak Continue Zosyn Resume home medications, hold Lipitor for now until LFTs are improving Follow-up GI plan after patient completes his studies Sariah Nichols MD 01/26/2023 1:43 PM [facility] Discharge instructions* Discharge Instructions* Sariah Nichols MD - 01/26/2023 1:41 PM EDT Do not take atorvastatin/Lipitor for 1 week. Follow-up with PCP Check BP before taking meds documented [facility] Evaluation note* Encounter Date Diagnosis Assessment Notes Treatment Notes Treatment Clinical Notes Oct, Asthma with COPD (ICD-10 - J44.9) [facility] 03-30-2022 Evaluation note* Encounter Date Diagnosis Assessment Notes Treatment Notes Treatment Clinical Notes Jun, Asthma with COPD (ICD-10 - J44.9) Jun, Coronary artery disease involving [place] heart, unspecified vessel or lesion type, unspecified whether angina present (ICD-10 - I25.10) Jun, Orthostatic lightheadedness (ICD-10 - R42) [facility] 07-01-2017 History general Narrative - Reported* Type Description Date Medical History COPD Medical History heart disease Medical History congestive heart failure Medical History asthma Surgical History rotator cuff tear repair 10/2016 Surgical History Foot Surgery 2016 Surgical History hernia repair 2014 Hospitalization History See Above [facility] 10-26-2016 History of Present illness Narrative* Patient returns in follow-up of problems as noted. In the interim he has begun to develop anginal chest pain. He describes retrosternal pain brought about by aerobic activity and relieved with rest. Review of chart demonstrates that he had a coronary angiogram 7 years ago in [facility] where he had moderate disease treated medically. In the interim his hypertension and hyperlipidemia have been adequately managed and he quit smoking. Nonetheless the propensity to progressive coronary atherosclerosis that could lead angina was discussed and explained in detail I propose to him that he be evaluated. Specifically I believe treadmill testing should be undertaken. * He believes he can do the treadmill test despite his concomitant diagnoses of COPD and asthma. Because of this we will plan to proceed with stress testing and follow-up thereafter. [facility] Work Phone: Evaluation + Plan note No data available for this section General Surgery [employer] Evaluation noteNo InformationNomissouri rehabilitation center [facility] Other Evaluation noteNo assessment information available [facility] Work Phone: Evaluation note* Diagnosis Abdominal pain- Primary Abdominal pain, unspecified site Transaminitis Nonspecific elevation of levels of transaminase or lactic acid dehydrogenase (LDH) Elevated bilirubin Disorders of bilirubin excretion Alkaline phosphatase elevation Other nonspecific abnormal serum enzyme levels History of cholecystectomy Other acquired absence of organ History of bowel resection Elevated lactic acid level Other nonspecific abnormal serum enzyme levels Bile duct leak Other specified disorders of biliary tract documented in this encounter [facility] N[facility]* Patient returns in follow-up of problems as noted. He is doing well. I cannot elicit any angina CHFarrhythmia or neurologic symptomatology. Treatment of risk factors including blood pressure and cholesterol is reviewed with him and control appears to be adequate and appropriate. He has a lot of dyspnea which he is believe is on the basis of advanced asthma with COPD and I concur but he was educated regarding cardiac signs and symptoms watch for and given a prescription for as needed sublingual nitroglycerin to try if in fact he believes his symptoms are atypical and/or could be cardiac.He was encouraged and educated regarding what to do if he feels relief of symptoms with nitrates. * From a cardiac standpoint he otherwise appears to be doing good. Risk factors are well controlled. He had moderate disease at angiogram 5 years ago and no intervention was undertaken and since then he has had good risk factor control and its possible is not had any progression. Nonetheless they were encouraged to call if new symptoms arise or occur or if he has amelioration of symptomatology withnitrates. They understand and agree with the plan. In the meantime I also encourage diet lifestyle modification exercise and weight loss. [facility] Fluid Stone DO Work Phone: History of Present illness Narrative* Patient returns in follow-up of problems as noted. In the interim he has had no angina CHF or arrhythmia symptomatology. He has none of the symptoms of coronary disease that preceded his diagnosis. His hypertension and hyperlipidemia are well controlled and he was congratulated on his continued abstinence from tobacco. The merits of diet exercise and weight loss were discussed. * He notes resting tachycardia. I agree with him on auscultation and palpation heart rate is about 100. Because of this an EKG was performed and it demonstrates sinus tachycardia. I believe his tachycardia is on the basis of multiple bronchodilators that he uses and this was explained to him in detail and this reassures him that its not an unusual phenomenon. In light of all the above I believe he is suitably stable and I suggest continued therapy as before without change and follow-up next year. [facility] Stone DO Work Phone: Hospital Discharge instructions No data available for this section General Surgery [employer] Progress note No data available for this section General Surgery [employer] Summary Purpose Family History No Family History Records FoundUnknown Family Member Name Dates Details Family history of myocardial infarction: Father(V17.3, Z82.49) Status:Active Family history of cardiovasc ular disease: Father(V17.49, Z82.49) Status:Active Family history of aortic ane urysm: Father(V17.49, Z82.49) Status:Active Family history of diabetes m ellitus: Brother(V18.0, Z83.3) Status:Active Heart problem: Brother Status:Active Unknown Family Member Name Dates Details Heart problem: Brother Status:Active Family history of diabetes m ellitus: Brother(V18.0, Z83.3) Status:Active Family history of aortic ane urysm: Father(V17.49, Z82.49) Status:Active Family history of cardiovasc ular disease: Father(V17.49, Z82.49) Status:Active Family history of myocardial infarction: Father(V17.3, Z82.49) Status:Active Unknown Family Member Name Dates Details Heart problem: Brother Status:Active Family history of diabetes m ellitus: Brother(V18.0, Z83.3) Status:Active Family history of aortic ane urysm: Father(V17.49, Z82.49) Status:Active Family history of cardiovasc ular disease: Father(V17.49, Z82.49) Status:Active Family history of myocardial infarction: Father(V17.3, Z82.49) Status:Active Relationship Condition Age at Onset Recorded Date/T soco Not Specified Heart disease Unknown Unknown Family Member Name Dates Details Heart problem: Brother Status:Active Family history of diabetes m ellitus: Brother(V18.0, Z83.3) Status:Active Family history of aortic ane urysm: Father(V17.49, Z82.49) Status:Active Family history of cardiovasc ular disease: Father(V17.49, Z82.49) Status:Active Family history of myocardial infarction: Father(V17.3, Z82.49) Status:Active Unknown Family Member Name Dates Details Heart problem: Brother Status:Active Family history of diabetes m ellitus: Brother(V18.0, Z83.3) Status:Active Family history of aortic ane urysm: Father(V17.49, Z82.49) Status:Active Family history of cardiovasc ular disease: Father(V17.49, Z82.49) Status:Active Family history of myocardial infarction: Father(V17.3, Z82.49) Status:Active Advance Directives No Advanced Directives Records Found Advance Directive Response Recorded Date/ Time Advance Directives No August 31, 2019 4:13pm Latest Code Status on File Code Status Date Activated Date Inactivated Comments Full Code 01/25/2023 6:37 PM Code Status History Code Status Date Activated Date Inactivated Comments Full Code 01/25/2023 6:37 PM 01/25/2023 6:37 PM Advance Directive Response Recorded Date/ Time Advance Directives No August 31, 2019 3:13pm Chief Complaint ABRAHAM HARRY is being seen for a 6 month follow-up of.ABRAHAM HARRY is being seen for a 9 month follow-up of.ABRAHAM HARRY is being seen for a 9 month follow-up of.ABRAHAM HARRY is being seen for a 6 month follow-up of. Chief Complaint and Reason for Visit Chief Complaint j44.9 Chief Complaint J44.9 Chief Complaint J44.9 redraw per Michelle Additional Source Comments (unrecognized sect ion and content) No Status Records FoundNo Status Records FoundNo Status Records FoundNo Status Records FoundNo Status Records FoundNo Status Records FoundNo Status Records FoundNo Status Records FoundNo Status Records FoundNo Status Records Found INFORMATION SOURCE (unrecogn ized section and content) DATE CREATED AUTHOR 10/21/[address] [facility] DATE CREATED AUTHOR AUTHOR'S ORGANIZ ATION 04/08/2020 [facility] DATE CREATED AUTHOR AUTHOR'S ORGANIZ ATION 02/22/2022 [facility] DATE CREATED AUTHOR AUTHOR'S ORGANIZ ATION 01/08/2023 [facility] DATE CREATED AUTHOR AUTHOR'S ORGANIZ ATION 02/03/2023 [facility] DATE CREATED AUTHOR AUTHOR'S ORGANIZ ATION 02/03/2023 [facility] DATE CREATED AUTHOR AUTHOR'S ORGANIZ ATION 02/11/2023 [facility] DATE CREATED AUTHOR AUTHOR'S ORGANIZ ATION 04/14/2023 [facility] DATE CREATED AUTHOR AUTHOR'S ORGANIZ ATION 09/03/2023 [facility] DATE CREATED AUTHOR AUTHOR'S ORGANIZ ATION 09/08/2023 [facility] REASON FOR VISIT (unrecogniz ed section and content) Refill- Prednisone6 mo f/u A sthma w COPDRefill- YuperlriPrednisone taper6 mo f/u Asthma w COPD, Acute Seasonal Allergic Rhinitis, CAD6 mo f/u Asthma w COPD, Acute Seasonal Allergic Rhinitis, CADReaction to Budesonide Care Teams (unrecognized sec tion and content) Team Status: Active Member Role Status Dates Nirav Cain DO Primary Care Provider Active Team Status: Inactive Member Role Status Dates Nirav Cain DO Primary Care Provider Active Chan Taylor MD Attending Provider Active Goals (unrecognized section and content) Goals may be documented in a n alternate section Ordered Prescriptions (unrec ognized section and content) Prescription Sig Dispensed Refills Start Date End Da te cephALEXin (KEFLEX) 500 MG capsule Take 1 capsule by mouth 3 times daily for 3 days 9 capsule 0 01/26/2023 01/29/2023 cephALEXin (KEFLEX) 500 MG capsule Take 1 capsule by mouth 3 times daily 15 capsule 0 01/26/2023 01/26/2023 Scheduled Active and Recently Administ ered Medications (unrecognized section and content) Medication Order 01/24/2023 01/25/2023 01/26/2023 clopidogrel (PLAVIX) tablet 75 mg 75 mg, Oral, DAILY, First dose on Tue01/26/23 at 1400, Until Discontinued 1550 (Not Given - Provider: Lisa Butler, BEN - Reason: Patient/family refused) enoxaparin (LOVENOX) injection 40 mg 40 mg, SubCUTAneous, DAILY, First dose on Tue01/25/23 at 1900, Until Discontinued, Indication of Use: Prophylaxis-DVT/PE, Administer by deep subCUTAneous injection with pt lying down. Alternate injection sites on abdominal wall. Do not rub site after injection. Check with provider prior to any invasive procedure. 2058 (Not Given - Provider: Elvira Su RN - Reason: Medication not available) 101 (Not Given - Provider: Lisa Butler RN - Reason: Medication not available) famotidine (PEPCID) 20 mg in sodium chloride (PF) 0.9 % 10 mL injection 20 mg, IntraVENous, 2 TIMES DAILY, First dose on Tue01/25/23 at 2100, Until Discontinued, IV Push over minimum of 2 minutes - Dilute with 10 mL NS 2099 (Not Given - Provider: Elvira Su RN - Reason: Patient/family refused) 101 (Not Given - Provider: Lisa Butler RN - Reason: Patient/family refused)2099 (Due) HYDROmorphone (DILAUDID) injection 0.25 mg (COMPLETED) 0.25 mg, IntraVENous, ONCE, 1 dose, On Tue01/26/23 at 0045, If oral and IV narcotics ordered, use oral first and only use IV if oral is ineffective or cannot take oral. Do Not give oral and IV within 1 hour of each other unless specifically ordered. 0030 (Given - Provid er: Elvira Su RN) metoprolol succinate (TOPROL XL) extended release tablet 50 mg 50 mg, Oral, DAILY, First dose on Tue01/26/23 at 1400, Until Discontinued, Do not crush or chew. 1550 (Not Given - Provider: Lisa Butler RN - Reason: Patient/family refused) piperacillin-tazobactam (ZOSYN) 3,375 mg in sodium chloride 0.9 % 50 mL IVPB (mini-bag) 3,375 mg, IntraVENous, EVERY 8 HOURS, First dose on Tue01/25/23 at 2130, Until Discontinued, Antimicrobial Indications: Intra-Abdominal Infection 2205 (New Bag - Provider: Elvira Su RN) 0207 (Stopped - Provider: Elvira Su RN)0556 (New Bag - Provider: Elvira Su RN)0956 (Stopped - Provider: Lisa Butler RN)1547 (New Bag - Provider: Lisa Butler RN)1947 (Due: Stopped - Provider: Lisa Butler RN)2130 (Due) sodium chloride flush 0.9 % injection 5-40 mL 5-40 mL, IntraVENous, EVERY 12 HOURS SCHEDULED (2 times per day), First dose on Tue01/25/23 at 2100, Until Discontinued, For Line Patency: Peripheral IV = 5 mL; Midline or Central Line = 10 mL/lumen. If following IV push medication, administer flush at same rate as the IV push. Flush volume is determined by type of infusion therapy being given. For non-viscous solutions use: Peripheral IV = 5 mL Midline or Central Line = 10 mL/lumen For viscous solutions (i.e. blood components, parenteral nutrition, contrast media, or after obtaining blood sample) use: Peripheral IV = 10 mL Midline or Central Line = 20 mL/lumen 2100 (Given - Provider: Elvira Su RN) 0946 (Not Given - Provider: Lisa Butler, BEN - Reason: IV Fluid Infusing)2100 (Due) Continuous Medication Order 01/24/2023 01/25/2023 01/26/2023 0.9 % sodium chloride infusion IntraVENous, at 75 mL/hr, CONTINUOUS, Starting on Tue01/25/23 at 1900 2059 (New Bag - Provider: Jason Su RN) PRN Medication Order 01/24/2023 01/25/2023 01/26/2023 0.9 % sodium chloride infusion IntraVENous, at 5-250 mL/hr, PRN, if patient receiving piggyback infusions and maintenance fluids are not ordered OR KVO fluids to protect IV site / prevent frequent line interruptions/ long duration, Starting on Tue01/25/23 at 1835, For piggyback infusion, administer at same rate as piggyback for a total of 25 mL. Enter 25 mL into dose field and piggyback rate into rate field of order. If piggyback is infusing at a rate less than 100 mL/hr, enter 25 mL into dose field and 100 mL/hr into rate field of order. For KVO fluids, enter rate of 20 mL/hr or less into rate field of order. acetaminophen (TYLENOL) suppository 650 mg(Linked Group 1) 650 mg, Rectal, EVERY 6 HOURS PRN, Starting on Tue01/25/23 at 1835, Until Discontinued, Pain Mild (1-3), Fever, For temp greater than 100.4 F (38 C), Administer if oral route cannot be used. acetaminophen (TYLENOL) tablet 650 mg(Linked Group 1) 650 mg, Oral, EVERY 6 HOURS PRN, Starting on Tue01/25/23 at 1835, Until Discontinued, Pain Mild (1-3), Fever, For temp greater than 100.4 F (38 C), Maximum dose of acetaminophen is 4000 mg from all sources in 24 hours. albuterol (PROVENTIL) (2.5 MG/3ML) 0.083% nebulizer solution 2.5 mg 2.5 mg, Nebulization, EVERY 4 HOURS PRN, Starting on Tue01/26/23 at 1341, Until Discontinued, Wheezing, Initiate RT Bronchodilator Protocol: Yes - Inpatient Protocol HYDROcodone-acetaminophen (NORCO) 5-325 MG per tablet 2 tablet (CANCELED)(Linked Group 2) 2 tablet, Oral, EVERY 4 HOURS PRN, Starting on Tue01/25/23 at 1836, Until Tue01/26/23 at 0017, Pain Severe (7-10), Maximum dose of acetaminophen is 4000 mg from all sources in 24 hours. 2038 (Given - Provider: Elvira Su RN) LORazepam (ATIVAN) injection 0.5 mg (COMPLETED) 0.5 mg, IntraVENous, ONCE PRN, 1 dose, Starting on Tue01/26/23 at 1012, Until Mayra 01/27/23 at 1012, Other, MRI, Immediately prior to intravenous use, lorazepam Injection must be diluted with an equal volume of compatible solution (NS or D5W). 1155 (Given - Provid er: Lisa Butler RN) magnesium sulfate 1000 mg in dextrose 5% 100 mL IVPB 1,000 mg, IntraVENous, at 100 mL/hr, Administer over 1 Hours, PRN, Other, Per IV Magnesium Replacement Protocol, Starting on Tue01/25/23 at 1835, Mg Lab Replacement Action 1.4-1.6 1 gram IVPB x 2 doses (2 gram Total) 1.0-1.3 1 gram IVPB x 4 doses (4 gram Total) <1.0 CALL PHYSICIAN and 1 gram IVPB x 4 doses (4 gram Total) Infuse at 1 gram/hr Repeat Mag level next AM Protocol not for use in Patients with CrCl<30ml/min morphine (PF) injection 2 mg (CANCELED) 2 mg, IntraVENous, EVERY 4 HOURS PRN, Starting on Tue01/25/23 at 1836, Until Tue01/26/23 at 0017, Pain Severe (7-10), If oral and IV narcotics ordered, use oral first and only use IV if oral is ineffective or cannot take oral. Do Not give oral and IV within 1 hour of each other unless specifically ordered. 1900 (Given - Provider: Ruby Harper, BEN)2240 (Given - Provider: Elvira Su RN) ondansetron (ZOFRAN) injection 4 mg(Linked Group 3) 4 mg, IntraVENous, EVERY 6 HOURS PRN, Starting on Tue01/25/23 at 1835, Until Discontinued, Nausea, Vomiting, Administer if oral route cannot be used. ondansetron (ZOFRAN-ODT) disintegrating tablet 4 mg(Linked Group 3) 4 mg, Oral, EVERY 8 HOURS PRN, Starting on Tue01/25/23 at 1835, Until Discontinued, Nausea, Vomiting polyethylene glycol (GLYCOLAX) packet 17 g 17 g, Oral, DAILY PRN, Starting on Tue01/25/23 at 1835, Until Discontinued, Constipation, First line therapy for constipation potassium bicarb-citric acid (EFFER-K) effervescent tablet 40 mEq(Linked Group 4) 40 mEq, Oral, PRN, Starting on Tue01/25/23 at 1835, Until Discontinued, Per Potassium Replacement Protocol, Administer as alternative if patient unable to tolerate oral tablet. K Lab Replacement Action 3.1 to 3.5 40 mEq ORAL x 1 Under 3.1 Refer to IV replacement protocol Recheck K level in AM. Protocol not for use in patients with CrCl less than 30 mL/min. Do not chew or crush. Dissolve flavored tablets completely in 3 to 4 ounces of cold water; unflavored tablets may be dissolved in 3 to 4 ounces of cold juice. Patient to sip slowly over a 5 to 10 minute period. May further dilute if GI adverse effects occur. potassium chloride (KLOR-CON M) extended release tablet 40 mEq(Linked Group 4) 40 mEq, Oral, PRN, Starting on Tue01/25/23 at 1835, Until Discontinued, Potassium Replacement, May give oral solution if patient unable to tolerate tablet. K Lab Replacement Action 3.1-3.5 40 mEq ORAL x 1 2.7-3.0 Refer to IV replacement orders < 2.7 Refer to IV replacement orders Recheck K level in AM. Not for use in patients with CrCl less than 30 mL/min. potassium chloride 10 mEq/100 mL IVPB (Peripheral Line)(Linked Group 4) 10 mEq, IntraVENous, PRN, Starting on Tue01/25/23 at 1835, Until Discontinued, at 100 mL/hr, Potassium Replacement, K Lab Replacement Action 2.7-3.0 10 mEq IVPB x 6 doses (60 mEq Total) < 2.7 CALL PHYSICIAN and 10 mEq IVPB x 6 doses (60 mEq Total) Infuse at 10 mEq/hr Repeat Potassium lab 1 hour after final administration. Not for use in patients with CrCl less than 30 mL/min. sodium chloride flush 0.9 % injection 10 mL 10 mL, IntraVENous, PRN, Starting on Tue01/25/23 at 1835, Until Discontinued, Line Care, After every IV line use technetium mebrofenin (CHOLETEC) injection 3.5 millicurie (COMPLETED) 3.5 millicurie, IntraVENous, IMG ONCE PRN, 1 dose, Starting on Tue01/26/23 at 1448, Until Tue01/26/23 at 1340, Other, Nuclear Medicine 1340 (Given - Provid er: Dave Arora) Linked Groups Order Group 1: acetaminophen (TYLENOL) tablet 650 mgJump to med 650 mg, Oral, EVERY 6 HOURS PRN, Starting on Tue01/25/23 at 1835, Until Discontinued, Pain Mild (1-3), Fever, For temp greater than 100.4 F (38 C)
Maximum dose of acetaminophen is 4000 mg from all sources in 24 hours.
Or acetaminophen (TYLENOL) suppository 650 mgJump to med 650 mg, Rectal, EVERY 6 HOURS PRN, Starting on Tue01/25/23 at 1835, Until Discontinued, Pain Mild (1-3), Fever, For temp greater than 100.4 F (38 C)
Administer if oral route cannot be used.
Group 2: HYDROcodone-acetaminophen (NORCO) 5-325 MG per tablet 1 tablet (CANCELED) 1 tablet, Oral, EVERY 4 HOURS PRN, Starting on Tue01/25/23 at 1836, Until Tue01/26/23 at 0017, Pain Moderate (4-6)
Maximum dose of acetaminophen is 4000 mg from all sources in 24 hours.
Or HYDROcodone-acetaminophen (NORCO) 5-325 MG per tablet 2 tablet (CANCELED)Jump to med 2 tablet, Oral, EVERY 4 HOURS PRN, Starting on Tue01/25/23 at 1836, Until Tue01/26/23 at 0017, Pain Severe (7-10)
Maximum dose of acetaminophen is 4000 mg from all sources in 24 hours.
Group 3: ondansetron (ZOFRAN-ODT) disintegrating tablet 4 mgJump to med 4 mg, Oral, EVERY 8 HOURS PRN, Starting on Tue01/25/23 at 1835, Until Discontinued, Nausea, Vomiting Or ondansetron (ZOFRAN) injection 4 mgJump to med 4 mg, IntraVENous, EVERY 6 HOURS PRN, Starting on Tue01/25/23 at 1835, Until Discontinued, Nausea, Vomiting
Administer if oral route cannot be used.
Group 4: potassium chloride (KLOR-CON M) extended release tablet 40 mEqJump to med 40 mEq, Oral, PRN, Starting on Tue01/25/23 at 1835, Until Discontinued, Potassium Replacement
May give oral solution if patient unable to tolerate tablet. K Lab Replacement Action 3.1-3.5 40 mEq ORAL x 1 & nbsp; 2.7-3.0 Refer to IV replacement orders < 2.7 Refer to IV replacement orders Recheck K level in AM. Not for use in patients with CrCl less than 30 mL/min.
Or potassium bicarb-citric acid (EFFER-K) effervescent tablet 40 mEqJump to med 40 mEq, Oral, PRN, Starting on Tue01/25/23 at 1835, Until Discontinued, Per Potassium Replacement Protocol
Administer as alternative if patient unable to tolerate oral tablet. K Lab Repla cemen t Action 3.1 to 3.5 40 mEq ORAL x 1 Under 3.1 Refer to IV replacement protocol Recheck K level in AM. Protocol not for use in patients with CrCl less than 30 mL/min. Do not chew or crush. Dissolve flavored tablets completely in 3 to 4 ounces of cold water; unflavored tablets may be dissolved in 3 to 4 ounces of cold juice. Patient to sip slowly over a 5 to 10 minute period. May further dilute if GI adverse effects occur.
Or potassium chloride 10 mEq/100 mL IVPB (Peripheral Line)Jump to med 10 mEq, IntraVENous, PRN, Starting on Tue01/25/23 at 1835, Until Discontinued, at 100 mL/hr, Potassium Replacement
K Lab Replacement Action 2.7-3.0 10 mEq IVPB x 6 doses (60 mEq Total) < 2.7 CALL PHYSICIAN and 10 mEq IVPB x 6 doses (60 mEq Total) Infuse at 10 mEq/hr Repeat Potassium lab 1 hour after final administration. Not for use in patients with CrCl less than 30 mL/min.
FOR RECORDS PERTAINING TO PATIENTS WHO ARE OR HAVE BEEN ENROLLED IN A CHEMICAL DEPENDENCY/SUBSTANCEABUSE PROGRAM, SOME INFORMATION MAY BE OMITTED. This clinical summary was aggregated from multiple sources. Caution should be exercised in using it in the provision of clinical care. This summary normalizes information from multiple sources, and as a consequence, information in this document may materially change the coding, format and clinical context of patient data. In addition, data may be omitted in some cases. CLINICAL DECISIONS SHOULD BE BASED ON THE PRIMARY CLINICAL RECORDS. [employer] provides no warranty or guarantee of the accuracy or completeness of information in this document.
[2023-09-14] MEDS: LACTATED RINGER'S SOLUTION 1,000 ML 50 ML IV ×2 (07:01→08:23)
[2023-09-14] MEDS: CEFAZOLIN SODIUM/DEXTROSE,ISO 2 GM/50 ML PIGGYBACK IV (07:19)
[2023-09-14] MEDS: BUPIVACAINE LIPOSOME/PF 266 MG/13.3 ML VIAL INJ (08:11)
[2023-09-14] MEDS: BUPIVACAINE HCL 0.25% PF 25 MG/10 ML VIAL INJ (08:11)
[2023-09-14] MEDS: 0.9 % SODIUM CHLORIDE 10 ML IV (08:11)
[2023-09-14] MEDS: HYDROMORPHONE HCL 0.5 MG/0.5 ML SYRINGE IV ×5 (10:30→10:55)
[2023-09-14] MEDS: HYDROCODONE/ACET 5-325 MG TABLET 1 TAB PO (10:48)
== END 2023-09-14 12:40 | disposition home or self-care (01) ==
PROVIDERS: PCP Family Medicine; Visit Provider Surgery
PROC: (CPT 00832; principal; 2023-09-14 07:30)
DX: K43.0 Incisional hernia with obstruction, without gangrene (principal); Z79.01 Long term (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 anticoagulants; J44.9 Chronic obstructive pulmonary disease, unspecified; I25.10 Atherosclerotic heart disease of native coronary artery without angina pectoris; Z90.49 Acquired absence of other specified parts of digestive tract; Z86.73 Personal history of transient ischemic attack (TIA), and cerebral infarction without residual deficits; I11.0 Hypertensive heart disease with heart failure; Z87.891 Personal history of nicotine dependence; Z85.9 Personal history of malignant neoplasm, unspecified; I50.40 Unspecified combined systolic (congestive) and diastolic (congestive) heart failure; E78.00 Pure hypercholesterolemia, unspecified; E66.01 Morbid (severe) obesity due to excess calories; Z68.37 Body mass index [BMI] 37.0-37.9, adult; R73.03 Prediabetes
CPT/HCPCS: 00832; 49592; 36415; 64488; 88304; C1781; J1094; J1170; J2704

== ENCOUNTER 2023-10-17 08:21 | Outpatient (OUT) | payer OTHER, MEDICARE, SELFPAY ==
--- NOTE | 2023-10-17 08:38 | XR_ITS ---
The [address] [address] Patient Name: ALMA HARRY MRN: [id number] date: 1960 Sex: M Assigned Patient Location: LAB Current Patient Location: LAB Accession/Order Number: [id number] Exam Date: 10/17/2023 08:45 Report Date: 10/17/2023 16:35 At the request of: NON-STAFF PHYSICIAN Procedure: XR chest 2V EXAM: XR chest 2V REASON FOR EXAM: Male, 63 years, Chronic Obstructive Pulmonary Disease J44.9. TECHNIQUE: PA and lateral views of the chest are performed. COMPARISON: 09/01/2023. FINDINGS: The lungs are slightly hyperinflated. There is no focal consolidation. Normal pleura. Normal size heart. Normal mediastinum and fawn. Normal visualized pulmonary arteries. Normal visualized aortic arch and descending thoracic aorta. Normal visualized thoracic spine. Normal visualized ribs, clavicles, and shoulders. There is no demonstrated abnormality of the visualized soft tissue structures of the upper abdomen. XR/XR chest 2V IMPRESSION: Hyperinflation, without acute process. Electronically authenticated by: BALTAZAR HARDEN Date: 10/17/2023 16:35
--- OUTSIDE RECORDS SUMMARY | 2023-10-17 08:38 | XMS_ITS ---
Patient Summarization (C-CDA 2.1 CCD) Created on: October 17, 2023 ABRAHAM HARRY Ryann : 1960 Sex: Male Author Organization Sample organization Care Team Providers Care Concrete Pipe Maker Name Role Phone HAMPOLE, SUKHWINDER Unavailable Unavailable POCRYLAN DICKSON Unavailable Unavailable HAMPOLE, SUKHWINDER Unavailable Unavailable HOUSE SR, NIRAV MARIA Unavailable Unavai lable HAMPOLE, SUKHWINDER Unavailable Unavailable HOUSE SR, NIRAV MARIA Unavailable Unavai lable Unavailable Unavailable Gabriel Munoz Unavailable Chan Taylor Unavailable ANT, DR MCCLELLAND Primary Care Unavailable BRITTNEY, DR LORETTA Carrillo Admitting Unavailable BRITTNEY, DR LORETTA Carrillo Attending Unavailable TAYLER, JACOBY WASHINGTON Consulting Unavailable ARAMIS, EDIN Consulting Unavailable ANT, DR MCCLELLAND Admitting Unavailable DUNDEE, DR MCCLELLAND Attending Unavailable HOUSE, DR MCCLELLAND Primary Care Unavailable HOUSE, DR MCCLELLAND Admitting Unavailable HOUSE, DR MCCLELLAND Attending Unavailable HOUSE, DR MCCLELLAND Primary Care Unavailable HOUSE, DR MCCLELLAND Consulting Unavailable Ant, Nirav Mayers Unavailable DO Nirav Cain Primary Care Provider MD Chan Taylor Attending Provider [phone] Ant, Dr. Nirav Maria Primary Care Unava ilREY Ames Attending Unavailable Nirav Cain Primary Care Physician Juli Goff Unavailable Unavailable Unavailable Primary Care Provider Jennifer Baca II, Dr. Rey Stevens Attending Unavailable Keven WHITFIELD, Dr. Rey Stevens Referring Unavailable Ant, Dr. Nirav Maria Primary Care Dinorava ilable Keven WHITFIELD, Dr. Rey Stevens Attending Unavailable Keven WHITFIELD, Dr. Rey Stevens Referring Unavailable Ant, Dr. Nirav Maria Primary Care Dinorava ilmargi Baca II, Dr. Rey Stevens Referring Unavailable Ant, Dr. Nirav Maria Primary Care Unava ilmargi Baca II, Dr. Rey Stevens Attending Unavailable NICHOLS, SARIAH Attending Unavailable ELIGIO BLANDON Consulting Unavailable PAYAMADOU Referring Unavailable MAGDALENA, SARIAH Admitting Unavailable DO Nirav Cain Primary Care Provider MD Chan Taylor Attending Provider NIRAV CAIN Primary Care Physician [phone] Brandon, Chan Admitting Unavailable Chaban, Chan Attending Unavailable House, Nirav Primary Care Unavailable Chaban, Wselyal Admitting Unavailable Chaban, Chan Attending Unavailable House, Nirav Primary Care Unavailable Chaban, Chan Attending Unavailable House, Nirav Primary Care Unavailable Chameng, Chan Admitting Unavailable Nill, Marbin Carrillo Admitting Unavailable Nill, Marbin Carrillo Attending Unavailable Nill, MD Marbin Carrillo Attending Provider [phone] NIRAV CAIN Referring Unavailable NILL, Marbin Carrillo Attending Unavailable NILL, Marbin Carrillo Attending Unavailable NILL, Marbin Carrillo Attending Unavailable NILL, aMrbin Carrillo Attending Unavailable NILL, Marbin Carrillo Attending Unavailable NILL, Marbin Carrillo Attending Unavailable NILL, Marbin Carrillo Attending Unavailable HOUSE, NIRAV P Attending Unavailable HOUSE, NIRAV P Primary Care Unavailable HOUSE, NIRAV P Primary Care Unavailable Abraham Holder MD Attending Unavailable HOUSE, NIRAV P Primary Care Unavailable Gallo FENTON, Abraham Case Attending Unavailable HOUSE, NIRAV P Primary Care Unavailable Abraham Holder MD Attending Unavailable HOUSE, NIRAV P Attending Unavailable HOUSE, NIRAV P Primary Care Unavailable Allergies Allergy Classification Reported Allergen(s) Allergy Type Date of Onset Reaction(s) Facility (6 sources) Adhesive Tape; Translations: [Tape] Drug allergy irritation [facility] (2 sources) No Known Medication Allergies; Translations: [No Known Medication Allergies] Propensity to adverse reactions (disorder) [facility] Repository Encounters Encounter Date Encounter Type Care Provider Facility Start: 10-10-2023 End: 10-10-2023 ambulatory NIRAV CAIN Facility:[facility] Start: 10-05-2023 End: 10-05-2023 ambulatory Marbin CEBALLOS Facility:[facility] Start: 10-05-2023 End: 10-05-2023 Patient encounter procedure Marbin CEBALLOS [facility] [place] Start: 09-21-2023 End: 09-21-2023 ambulatory Marbin R NILL Facility: [facility] Start: 09-21-2023 End: 09-21-2023 Patient encounter procedure Marbin CEBALLOS [facility] [place] Start: 09-19-2023 End: 09-19-2023 ambulatory MD Marbin Ceballos Work Phone: [facility] Work Phone: Start: 09-19-2023 End: 09-19-2023 Patient encounter procedure MD Marbin Ceballos Work Phone: [facility] Work Phone: Start: 09-14-2023 End: 09-14-2023 ambulatory Marbin R Lin Facility:[facility] Start: 09-14-2023 End: 09-14-2023 Departed Referred MD Marbin Ceballos Work Phone: [facility] [place] [facility] Start: 09-14-2023 End: 09-14-2023 ambulatory Marbin R NILL Facility:CD:[id number] Start: 08-02-2023 End: 08-02-2023 ambulatory Marbin R NILL Facility: [facility] Start: 08-02-2023 End: 08-02-2023 Patient encounter procedure Marbin R NILL General Surgery [place] [place] Start: 07-12-2023 End: 07-12-2023 ambulatory NIRAV P HOUSE Facility: [place] Start: 07-12-2023 End: 07-12-2023 Patient encounter procedure Marbin R NILL General Surgery [facility] Start: 06-20-2023 End: 06-20-2023 ambulatory NIRAV P HOUSE Facility:[facility] Start: 04-20-2023 End: 04-20-2023 ambulatory NIRAV P HOUSE Facility:[facility] Start: 04-05-2023 End: 04-05-2023 ambulatory Kamterrance Taylor Facility:[facility] Start: 04-05-2023 End: 04-05-2023 ambulatory DO Nirav House Work Phone: [facility] Work Phone: Start: 04-05-2023 End: 04-05-2023 Patient encounter procedure DO Nirav House Work Phone: [facility] [place] Work Phone: Start: 04-04-2023 End: 04-04-2023 ambulatory Chan Taylor Other [employer] Other Start: 04-04-2023 Telephone encounter Chan Taylor [facility] Start: 03-22-2023 Office outpatient vi sit 25 minutes Kamterrance Taylor [facility] Start: 03-22-2023 End: 03-22-2023 ambulatory DO Nirav House Work Phone: [facility] Work Phone: Start: 03-22-2023 End: 03-22-2023 Patient encounter procedure DO Nirav House Work Phone: [facility] [place] Work Phone: Start: 02-15-2023 End: 02-15-2023 ambulatory NIRAV P HOUSE Facility:[facility] Start: 01-27-[address] Rey Baca Facility: Start: 01-27-2023 End: 01-27-2023 ambulatory NIRAV P HOUSE Facility:[facility] Start: 01-25-2023 End: 01-26-2023 Evaluation and management of inpatient SARIAH NICHOLS [facility] Start: 01-25-2023 End: 01-26-2023 Evaluation and management of inpatient Corie Bonilla MD Work Phone: [facility] Start: 01-19-2023 End: 01-19-2023 ambulatory Marbin CEBALLOS Facility:[facility] Start: 01-19-2023 End: 01-19-2023 Patient encounter procedure Marbin R NILL General Surgery [facility] Start: 01-11-2023 ambulatory NIRAV CAIN Facility: [facility] Start: 01-09-2023 End: 01-10-2023 ambulatory Marbin CEBALLOS Facility::[id number] Start: 12-21-2022 Patient encounter procedure Nirav Cain Work Phone: [facility] DO Work Phone: Start: 12-21-[address] Nirav Cain Facility:[id number] Start: 11-23-2022 Office outpatient vi sit 25 minutes Nirav P House Work Phone: [facility] Work Phone: Start: 11-23-[address] Rey Baca II Facility: Start: 09-30-2022 End: 09-30-2022 ambulatory Chan Taylor Facility:[facility] Start: 09-30-2022 End: 09-30-2022 ambulatory DO Nirav Cain Work Phone: [facility] Work Phone: Start: 09-30-2022 End: 09-30-2022 Patient encounter procedure DO Nirav Cain Work Phone: [facility] Work Phone: Start: 04-15-2022 Office outpatient vi sit 25 minutes Nirav P House Work Phone: [facility] DO Work Phone: Start: 04-15-[address] Rey Baca II Facility: Start: 04-01-2022 End: 04-01-2022 ambulatory Chan Taylor Other [facility] [employer] Other Start: 04-01-2022 Telephone encounter Kamterrance Parrishban [facility] Start: 03-02-2022 Rx Renewal Gabriel Riberay Work Phone: [facility] DO Work Phone: Start: 02-22-2022 Encounter for genera l adult medical examination without abnormal findings DR NIRAV CAIN [facility] Start: 02-18-2022 End: 02-19-[address] NIRAV CAIN Facility:[facility] Start: 02-18-2022 End: 02-19-2022 Encounter for general adult medical examination without abnormal findings DR NIRAV CAIN Facility:[facility] Start: 11-05-2021 End: 11-05-2021 ambulatory Weslyterrance Shivanimeng Other [employer] Other Start: 11-05-2021 Telephone encounter Kamterrance Chaban [facility] Start: 10-23-2021 End: 10-23-2021 ambulatory Weslyterrance Taylor Other [employer] Other Start: 10-23-2021 Telephone encounter Kamal Chaban [facility] Start: 07-29-2021 End: 07-29-2021 ambulatory Chan Parrishmeng Other [employer] Other Start: 07-29-2021 Office outpatient vi sit 25 minutes Kamterrance Brandon [facility] Start: 04-23-2021 End: 04-23-[address] NIRAV CAIN Facility:[facility] Start: 04-16-2021 Office outpatient vi sit 25 minutes Gabriel Munoz Work Phone: [facility] DO Work Phone: Start: 03-15-2021 Rx Renewal Rey alanis MD Work Phone: [facility] DO Work Phone: Start: 03-04-[address] NIRAV CAIN Facili ty:[facility] Start: 06-17-2017 End: 06-24-2017 Ambulatory [facility] Start: 05-31-2017 End: 06-06-2017 Ambulatory [facility] Start: 11-15-2016 End: 11-18-2016 Ambulatory [facility] Immunizations Immunization Date Immunization Notes Care Provider Flakita reynaga 09-19-2020 Moderna COVID-19 Vaccine 100 MCG/0.5ML Intramuscular Suspension Gabriel Munoz Work Phone: General Surgery [place] 08-22-2020 Moderna COVID-19 Vaccine 100 MCG/0.5ML Intramuscular Suspension Gabriel Munoz Work Phone: [facility] 01-30-2019 pneumococcal polysaccharide vaccine, 23 valent Gabriel Ibarra [employer] Work Phone: [facility] DO Work Phone: NEGATED: Highlighted row has not occurred!07-12-2023 influenza virus vaccine, unspecified formulation Marbin FERNÁNDEZRyann [facility] Medications Current Medications Medication Drug Class(es) Dates [...] ate Active 1 VIAL CNTNEBULIZ Q6H August 31, 2019 12:00am Start: 08-31-2019 take 1 puff(s) by in halation every six hours Albuterol Sulfate Active 2 PUFF INHALATION Q6H August 31, 2019 12:00am Start: 07-08-2015 ProAir HFA See Instructions, Inhalation, [...] as needed Inhalation every 4 hrs Active Aspirin 81 mg Tab-EC (5 sources) Start: 07-08-2015 take 1 tablet by [...] Discontinued 40 MG PO Every evening August 31, 2019 12:00am September 01, 2019 11:57am budesonide 0.25 mg/ml inhalation suspension (3 sources) Corticosteroid Start: 03-22-2023 take 2 mL by inhalation twice daily Budesonide 0.5 MG/2ML 2 ml Inhalation Twice a day for 30 day(s) Mar, Active 120 actuat budesonide 0.16 mg/actuat / formoterol fumarate 0.0045 mg/actuat metered dose inhaler (18 sources) Corticosteroid, beta2-Adrenergic Agonist Start: 09-19-2023 Budesonide-Formo terol (Symbicort) 160-4.5 mcg/actuation HFA aerosol inhaler Active 2 INH INHALATION Twice daily 05 31September 19, 2023 12:00am Start: 08-31-2019 End: 09-19-2023 take 1 puff(s) by inhalation twice daily Budesonide-Formoterol (Symbicort) 160-4.5 mcg/actuation Hfa Aerosol Inhaler Discontinued 2 PUFF INHALATION Twice daily August 31, 2019 12:00am September 19, 2023 1:18pm take 2 puff(s) by in halation twice daily Symbicort 160-4.5 MCG/ACT 2 puffs Inhalation [...] 01/29/2023 Active cholecalciferol 0.125 mg oral tablet (11 sources) Vitamin D Start: 08-31-2019 take 1 tablet by mouth once daily in the morning Cholecalciferol (Vitamin D3) (Vitamin D3) 125 mcg (5,000 unit) Tablet Active 125 MCG PO Every morning August 31, 2019 12:00am Vitamin D 125 MC G (5000 UT) [...] by mouth every six hours as needed Promethazine-Codei ne 6.25-10 MG/5ML 5 ml as needed Orally every 6 hrs Jun, Active famotidine (PEPCID) 20 mg in sodium chloride (PF) 0.9 % 10 mL injection (1 source) Start: 01-25-2023 famotidine (PEPCID) 20 mg in sodium chloride (PF) 0.9 % 10 mL injection Fluticasone Propion-Salmeterol (1 source) Corticosteroid, beta2-Adrenergic Agonist Start: 09-19-2023 Fluticasone Propion-Salmeterol (Wixela Inhub) 250-50 mcg/dose blister with device Active 1 INH INHALATION Twice daily September 19, 2023 12:00am losartan potassium 50 mg oral tablet (20 sources) Angiotensin 2 Receptor Avani Start: 08-13-2020 [...] Starting on Tue01/25/23 at 1835 Mg Lab &nb sp; Replaceme nt Action 1.4-1. 6 &nbsp ; 1 gram IVPB x 2 doses & nbsp; & nbsp; & nbsp; & nbsp; & nbsp; & nbsp; (2 gram Total) 1.0-1. 3 &nbsp ; 1 gram IVPB x 4 doses & nbsp; & nbsp; & nbsp; & nbsp; & nbsp; & nbsp; (4 gram Total) <1.0&n bsp; &n bsp; &n bsp; CALL PHYSICIAN and 1 gram IVPB x 4 doses (4 gram Total) Infuse at 1 gram/hr Repea t Mag level next AM Protocol not for use in Patients with CrCl<30ml/min&nbsp ; ondansetron (ZOFRAN-ODT) disintegrating tablet 4 mg (1 source) Start: 01-25-2023 ondansetron (ZOFRAN-ODT) disintegrating tablet 4 mg piperacillin-tazoba ctam (ZOSYN) 3,375 mg in sodium chloride 0.9 % 50 mL IVPB (mini-bag) (1 source) Start: 01-25-2023 piperacillin-tazob actam (ZOSYN) 3,375 mg in sodium chloride 0.9 % 50 mL IVPB (mini-bag) Potassium Chloride (1 source) Start: 01-25-2023 potassium chloride (KLOR-CON M) extended release tablet 40 mEq ProAir HFA 108 (90 Base) MCG/ACT (4 sources) take 2 puff(s) by inhalation every four hours as needed ProAir HFA 108 (90 Base) MCG/ACT 2 puffs as needed Inhalation every 4 hrs Active revefenacin 0.0583 mg/ml inhalation solution (15 sources) Start: 07-18-2023 Revefenacin (Yupelri) 175 mcg/3 mL solution for nebulization Active 0 .ROUTE .COMPLEX July 18, 2023 12:00pm USE 1 VIAL IN NEBULIZER DAILY Start: 07-11-2023 End: 07-18-2023 Revefenacin (Yupelri) 175 mc g/3 mL solution for nebulization Discontinued 175 MCG INHALATION Daily 90 July 11, 2023 12:00am July 18, 2023 12:00pm DX COPD j44.9 Start: 08-13-2020 take 175 ug by inhal ation once daily Yupelri 175 mcg, Inhalation, Daily, [...] BID, COPD Start Date: 11/10/16 Status: Ordered Wixela Inhub (4 sources) Start: 07-12-2023 take 1 puff(s) by inhalation twice daily Wixela Inhub 1 puff, Inhalation, BID, Refill(s) 0 Start Date: 07/12/23 Status: Ordered Completed/Discontinued Medications Medication Drug Class(es) Dates Sig (Normalized) Sig (Original) aspirin 81 mg chewable tablet (15 sources) Platelet Aggregation Inhibitor, Nonsteroidal Anti-inflammatory Drug Start: 08-31-2019 End: 09-19-2023 Aspirin (Lexx Chewable Aspirin) 81 mg Tablet,Chewable Discontinued 81 MG PO Every morning 0 September 01, 2019 11:42am September 19, 2023 1:18pm continue daily ASA through 09/21/19 then discontinue per neurology orders 0.4 ml enoxaparin sodium 100 mg/ml prefilled [...] Start: 08-31-2019 take 1 tablet by robert once daily metoprolol 50 mg ER Tab [...] hour of each other unless specifically ordered. nitroglycerin 0.4 mg sublingual tablet (15 sources) Nitrate Vasodilator Start: 09-12-2023 End: 09-19-2023 Nitroglycerin (Nitrostat) 0.4 mg tablet, sublingual Discontinued MG SUBLINGUAL As Directed September 12, 2023 12:00am September 19, 2023 1:19pm FreeTextSig: as directed Sublingual; Note: Source Status: Taking; Provider: Brandon Giles ( ) Start: 04-16-2021 nitroglycerin 0.4 mg sublingual Tab 0.4 mg = 1 tab(s), SubLingual, q5min, PRN for chest pain, Refills(s) 0 Start Date: 01/12/23 Status: Ordered Nitrostat 0.4 MG as directed Sublingual Active polyethylene glycol 3350 75807 mg powder for oral solution (1 source) Osmotic Laxative Start: 01-25-2023 17 g, Oral, D AILY PRN, Starting on Tue01/25/23 at 1835, Until Discontinued, Constipation First line therapy for constipation predniSONE 10 mg oral tablet (7 sources) Start: 07-26-2023 End: 09-12-2023 Prednisone Discontinued 10 MG PO .COMPLEX 28 July 26, 2023 12:00am September 12, 2023 1:47pm 10 mg orally 4 tabs x 4 days, 2 tabs x 4 days , 1 tab x 4 days then stop; Start: 04-01-2022 predniSONE 10 MG 4 tablets [...] as directed for 12 days Sep, Active 5 ml sodium chloride 9 mg/ml injection [...] 01-26-2023 technetium mebrofenin (CHOLETEC) injection 3.5 millicurie tiotropium 0.018 mg inhalation powder (4 sources) Anticholinergic Start: 08-31-2019 End: 09-12-2023 take 1 capsule by inhalation once daily in the morning Tiotropium [place] (Spiriva With Handihaler) 18 mcg Capsule, W/Inhalation Device Discontinued 1 CAP INHALATION Every morning August 31, 2019 12:00am September 12, 2023 1:47pm Vitamin D 1000 intl units Tab (1 source) Start: 09-17-2020 take 1 tablet by mouth once daily Vitamin D 1000 intl units Tab 1,000 International_Unit = 1 tab(s), Oral, Daily, # 30 tab(s), Refills(s) 0 Start Date: 09/17/20 Status: Ordered Payers Date Payer Category Payer Private Health Insurance [id number] 2020 Medicare [id number] 1960 Unknown [id number] 2.16.840.1.093439.3.579.2.593 1960 Unknown [id number] 2.16.840.1.636393.3.579.2.593 1960 Unknown [id number] 2.16.840.1.692724.3.579.2.593 1960 Unknown [id number] 2.16.840.1.447737.3.579.2.1068 1960 Unknown [id number] 2.16.840.1.069483.3.579.2.356 1960 Unknown [id number] 2.16.840.1.036492.3.579.2.356 1960 Unknown [id number] 2.16.840.1.608361.3.579.2.356 1960 Unknown [id number] 2.16.840.1.923875.3.579.2.175 1960 Unknown [id number] 2.16.840.1.448765.3.579.2.727 1960 Unknown [id number] 2.16.840.1.373767.3.579.2.727 1960 Unknown [id number] 2.16.840.1.084693.3.579.2.727 1960 Unknown [id number] 2.16.840.1.497144.3.579.2.727 1960 Unknown [id number] 2.16.840.1.431207.3.579.2.72 1960 Unknown [id number] 2.16.840.1.889905.3.579.2.72 1960 Unknown [id number] 2.16.840.1.333362.3.579.2.72 1960 Unknown [id number] 2.16.840.1.063239.3.579.2.71 1960 Unknown [id number] 2.16.840.1.910823.3.579.2.718 1960 Unknown [id number] 2.16.840.1.464970.3.579.2.8 1960 Unknown [id number] 2.16.840.1.356161.3.579.2.718 1960 Unknown [id number] 2.16.840.1.711850.3.579.2.718 1957 Self-pay 1957 Unknown [id number] 2.16. 840.1.784109.19 Unknown Unknown [id number] 2.16.840.1.875253.3.579.2.531 Unknown [id number] 2.16.840.1.495334.3.579.2.531 Unknown [id number] 2.16.840.1.853073.3.579.2.531 Unknown [id number] 2.16.840.1.620317.3.579.2.[address] [facility] [id number] Plan of Treatment Date Care Activity Detail Author Start: 03-22-2023 [facility] Start: 01-27-2023 End: 01-27-2023 Admission to same day surgery center 01/27/2023 11:00 AM EDT - 01/27/2023 12:30 PM EDT Surgery [facility] [address] [place], [place] [id number] Rodolfo Hernandez MD [address] [facility] [address] [place] [address] ERCP ENDOSCOPIC RETROGRADE CHOLANGIOPANCREATOGRAPHY, STENT PLACEMENT (C-ARM) [facility] OR Comment on above: ERCP ENDOSCOPIC RETROGRADE CHOLANGIOPANC REATOGRAPHY, STENT PLACEMENT (C-ARM) Start: 01-27-2023 End: 01-27-2023 Ercp dx collection specimen brushing/washing ERCP ENDOSCOPIC RETROGRADE CHOLANGIOPANCREATOGRAPHY Bile duct leak 01/27/2023 11:00 AM EDT [facility] Start: 01-27-2023 FUV, Provider: Rey Baca, Status: Pen, Time: 8:40 AM FUV, Provider: Rey Baca, Status: Pen, Time: 8:40 AM [facility] 250 DO Work Phone: Start: 11-30-2022 Influenza vaccination Flu vaccine (#1) [facility] Start: 11-23-2022 FUV, Provider: Rey Baca, Status: Pen, Time: 9:50 AM FUV, Provider: Rey Baca, Status: Pen, Time: 9:50 AM [facility] 250 DO Work Phone: Start: 04-15-2022 FUV, Provider: Rey Baca, Status: Pen, Time: 3:30 PM FUV, Provider: Rey Baca, Status: Pen, Time: 3:30 PM [facility] 250 DO Work Phone: Start: 01-13-2022 FUV, Provider: Rey Baca, Status: Pen, Time: 3:30 PM FUV, Provider: Rey Baca, Status: Pen, Time: 3:[address] [facility] DO Work Phone: Start: 04-02-2021 FUV, Provider: Rey Baca, Status: Pen, Time: 8:50 AM FUV, Provider: Rey Baca, Status: Pen, Time: 8:[address] [facility] DO Work Phone: Start: 11-14-2020 COVID-19 Vaccine (3 - Moderna series) COVID-19 Vaccine (3 - Moderna series) [facility] Start: 2012 Shingles vaccine (1 of 2) Shingles vaccine (1 of 2) [facility] Start: 10-15-2007 Screening for malignant neoplasm of colon [facility] Start: 1981 DTaP/Tdap/Td vaccine (1 - Tdap) DTaP/Tdap/Td vaccine (1 - Tdap) [facility] Start: 1980 Hepatitis C screening Hepatitis C screen [facility] Start: 1977 HIV screening HIV screen [facility] Start: 1974 Depression Screen Depression Screen [facility] Start: 1972 Lipid panel Lipids [facility] Alternaria alternata IgE Ab [Units/volume] in Serum [facility] Gabonese house dust mite IgE Ab [Units/volume] in Serum [facility] Gabonese Ainsworth Ig E Ab [Units/volume] in Serum [facility] Gabonese Ainsworth Ig E Ab [Units/volume] in Serum [facility] Aspergillus fumigatu s IgE Ab [Units/volume] in Serum [facility] Bermuda grass IgE Ab [Units/volume] in Serum [facility] Boxelder IgE Ab [Units/volume] in Serum [facility] Cat dander IgG Ab [Units/volume] in [facility] End: 01-27-2023 CBC W Auto Differential panel - Blood CBC with Auto Differential Lab Routine Daily for 3 Days starting 01/25/2023 until 01/27/2023, 2 completed [facility] Comment on above: Daily for 3 Days starting 01/25/2023 unt il 01/27/2023, 2 completed Cladosporium herbaru m IgE Ab [Units/volume] in Serum [facility] Cockroach IgE Ab [Units/volume] in [facility] Common Ragweed IgE A b [Units/volume] in [facility] End: 01-27-2023 Comprehensive metabolic 2000 panel - Serum or Plasma Comprehensive Metabolic Panel Lab Routine Daily for 3 Days starting 01/25/2023 until 01/27/2023, 2 completed [facility] Comment on above: Daily for 3 Days starting 01/25/2023 unt il 01/27/2023, 2 completed [place] IgE Ab [Units/volume] in Serum [facility] Culture, Blood 1 [facility] Dog dander IgE Ab [Units/volume] in [facility] house dust mite IgE Ab [Units/volume] in [facility] IgE [Units/volume] i n Serum or Plasma [facility] Intermittent pulse oximetry Pulse Oximetry Spot Check Respiratory Care Routine As Needed until discontinued starting 01/25/2023 [facility] Comment on above: As Needed until discontinued starting [place] Juniper IgE Ab [Units/volume] in [facility] Mouse urine proteins IgE Ab [Units/volume] in [facility] Oxygen therapy [Minimum Data Set] Initiate Oxygen Therapy Protocol Respiratory Care Routine As Needed until discontinued starting 01/25/2023 [facility] Comment on above: As Needed until discontinued starting Pecan or Giles Pio e IgE Ab [Units/volume] in [facility] Penicillium notatum IgE Ab [Units/volume] in [facility] Rough Pigweed IgE Ab [Units/volume] in [facility] Saltwort IgE Ab [Units/volume] in [facility] Sheep [place] IgE Ab [Units/volume] in [facility] Sheep [place] IgE Ab [Units/volume] in [facility] Silver Birch IgE Ab [Units/volume] in Serum [facility] Silver Birch IgE Ab [Units/volume] in Serum [facility] Benjy IgE Ab [Units/volume] in Serum [facility] [place] IgE Ab [Units/volume] in Serum [facility] [place] IgE Ab [Units/volume] in Serum [facility] [place] IgE Ab [Units/volume] in Serum [facility] [place] IgG Ab [Units/volume] in Serum [facility] [place] IgE A b [Units/volume] in Serum [facility] [place] IgE A b [Units/volume] in Serum [facility] [place] IgE Ab [Units/volume] in Serum [facility] Problems Active Problems Problem Classification Problem Date Documented Date Episodic/Chronic Abdominal hernia (7 sources) Incisional hernia; Translations: [Incisional hernia without obstruction or gangrene] Onset: 07-12-2023 Episodic Abdominal pain (13 sources) Unspecified abdominal pain; Translations: [Abdominal pain] Onset: 04-23-2021 Resolved: 01-26-2023 Episodic Acute cerebrovascular disease (10 sources) Cerebrovascular accident; Translations: [Cerebral artery occlusion, unspecified with cerebral infarction] 09-01-2019 Chronic Asthma (17 sources) Asthma; Translations: [Asthma, unspecified type, unspecified] 01-19-2023 Chronic Biliary tract disease (7 sources) Calculus of gallbladder without cholecystitis without obstruction; Translations: [Acute cholecystitis] Onset: 04-28-2021 Episodic Blindness and vision defects (4 sources) Transient visual loss; Translations: [Transient visual loss, unspecified eye] 08-31-2019 Episodic Chronic obstructive pulmonary disease and bronchiectasis (20 sources) Chronic obstructive lung disease; Translations: [Chronic airway obstruction, not elsewhere classified] Onset: 07-29-2021 Resolved: 01-12-2023 Chronic Congestive heart failure; nonhypertensive (11 sources) Unspecified systolic (congestive) heart failure; Translations: [Acute on chronic systolic heart failure] Onset: 07-08-2015 01-12-2023 Chronic Coronary atherosclerosis and other heart disease (20 sources) Atherosclerotic heart disease of [place] coronary artery without angina pectoris; Translations: [Coronary arteriosclerosis] Onset: 07-08-2015 Resolved: 07-29-2021 Chronic Diabetes mellitus without complication (5 sources) Prediabetes 01-12-2023 Episodic Disorders of lipid metabolism (20 sources) Hyperlipidemia; Translations: [Other and unspecified hyperlipidemia] 08-31-2019 Chronic Essential hypertension (20 sources) Hypertensive disorder; Translations: [Unspecified essential hypertension] Onset: 12-21-2022 08-31-2019 Chronic Nonspecific chest pain (3 sources) Chest pain; Translations: [Chest pain, unspecified] Onset: 12-21-2022 Episodic Other circulatory disease (5 sources) History of cerebrovascular accident 01-19-2023 Episodic Other circulatory disease (5 sources) History of transient ischemic attack 01-19-2023 Episodic Other connective tissue disease (5 sources) Disorder of rotator cuff 11-10-2016 Episodic Other connective tissue disease (5 sources) Plantar fasciitis 07-08-2015 Episodic Other liver diseases (2 sources) Enzyme level - finding; Translations: [Transaminitis] Onset: 01-25-2023 01-25-2023 Episodic Other liver diseases (2 sources) Increased bilirubin level; Translations: [Unspecified jaundice] Onset: 01-25-2023 01-25-2023 Episodic Other liver diseases (2 sources) Alkaline phosphatase raised; Translations: [Abnormal levels of other serum enzymes] Onset: 01-25-2023 01-25-2023 Episodic Other non-epithelial cancer of skin (4 sources) History of malignant basal cell neoplasm of skin 07-07-2023 Episodic Other nutritional; endocrine; and metabolic disorders (11 sources) Obesity; Translations: [Obesity, unspecified] 07-08-2015 Chronic Other nutritional; endocrine; and metabolic disorders (4 sources) Body mass index 30+ - obesity 07-12-2023 Chronic Other nutritional; endocrine; and metabolic disorders (4 sources) Morbid obesity 07-12-2023 Chronic Other screening for suspected conditions (not mental disorders or infectious disease) (2 sources) Increased lactic acid level; Translations: [Other specified abnormal findings of blood chemistry] Onset: 01-25-2023 Resolved: 01-26-2023 01-26-2023 Episodic Christiane-; endo-; and myocarditis; cardiomyopathy (except that caused by tuberculosis or sexually transmitted disease) (5 sources) Cardiomyopathy 07-08-2015 Chronic Residual codes; unclassified (2 sources) History of excision of intestinal structure; Translations: [Acquired absence of other specified parts of digestive tract] Onset: 01-25-2023 01-25-2023 Episodic Residual codes; unclassified (1 source) History of repair of umbilical hernia; Translations: [Other specified postprocedural states] 09-19-2023 Episodic Screening and history of mental health and substance abuse codes (5 sources) Personal history of nicotine dependence; Translations: [Ex-smoker] Onset: 04-28-2021 Episodic Comment on above: quit 2006 minimal sm oker; Transient cerebral ischemia (4 sources) Transient cerebral ischemia; Translations: [Transient cerebral [...] 11-15-2016 Episodic Other aftercare (1 source) 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; Translations: [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 THERAPY] Onset: 04-28-2021 Episodic Other circulatory disease (6 sources) H/O: hypertension; Translations: [Personal history of other diseases of circulatory system] Resolved: 04-16-2021 Episodic Procedures Date Procedure Procedure Detail Performing Clinician Start: 09-14-2023 Repair of incisional hernia Marbin CEBALLOS Start: 01-26-2023 Hepatobiliary syst imaging including gallbladder [...] Work Phone: Start: 01-10-2023 Laparoscopic cholecystectomy Marbin FERNÁNDEZL Start: 09-30-2022 Plain chest X-ray DO Griselda Cain Work Phone: Start: 02-18-[address] JEANINE CAIN Comment on above: Performed By: #### P SAD #### [facility] [address] [address] [address] Demetria Jain Start: 09-17-2020 Colonoscopy Marbin TANG LL Comment on above: Colon polyp Start: 11-23-2016 Right shoulder arthroscopy with extensive glenohumeral debridement, subacromial decompression, mini-open rotator cuff repair Marbin NILL Start: 07-11-2015 Rt/Lt Heart Catheterization Marbin NILL Cardiac catheterization Gene las M Bacilioy Work Phone: Colonoscopy Marbin NILL Excision of basal ce ll carcinoma Marbin NILL Comment on above: nasolabial fold Hernia repair Gabriel M Hoy Work Phone: Laparoscopy Gbariel M Hoy Work Phone: Operation on skin Nirav Cain Work Phone: Operative procedure on foot Gabriel M Hoy Work Phone: Repair of right ingu inal hernia Marbin NILL Small intestine excision Jero hael NILL Tonsillectomy Gabriel M Hoy Work Phone: Tonsillectomy Marbin NILL Total colonoscopy Gabriel M Hoy Work Phone: Comment on above: august 30, 2020; Results Test Name Value Interpretation Reference Range Facility Ambulatory Visit Summaryon 0 10-05-2023 Ambulatory Visit Summary ABRAHAM HARRY :1960 Visit Date:10/05/2023 Ambulatory Visit Instructions Your Care Team Attending Physician - LIN FENTON, Marbin Carrillo Primary Care Physician - NIRAV CAIN DO This Is Your Medications List albuterol (albuterol 0.083% Inh Daniella 3 mL) aspirin (Aspirin 81 mg Tab-EC) atorvastatin (atorvastatin 80 mg Tab) clopidogrel (Plavix 75 mg Tab) fluticasone-salmeterol (Wixela Inhub) losartan (losartan 50 mg Tab) metoprolol (metoprolol 50 mg ER Tab) spironolactone (spironolactone 50 mg Tab) Procedures Performed Repair of incisional hernia (09/14/2023), Laparoscopic cholecystectomy (01/10/2023), Colonoscopy (09/17/2020), Right shoulder arthroscopy with extensive glenohumeral debridement, subacromial decompression, mini-open rotator cuff repair (11/23/2016), Rt/Lt Heart Catheterization (07/11/2015), Colonoscopy, Excision of basal cell carcinoma, Repair of right inguinal hernia, Small bowel resection, Tonsillectomy. Medications What How Much When Instructions Unchanged albuterol (albuterol 0.083% Inh Daniella 3 mL) 3 Milliliter Nebulized inhalation (aerosol) Every 6 hours as needed for Shortness of breath or wheezing Unchanged aspirin (Aspirin 81 mg Tab-EC) 1 Tablets By Mouth Every day Unchanged atorvastatin (atorvastatin 80 mg Tab) 1 Tablets By Mouth Every day Unchanged clopidogrel (Plavix 75 mg Tab) 1 Tablets By Mouth Every day Unchanged fluticasone-salmeterol (Wixela Inhub) 1 puff Inhalation 2 times a day Unchanged losartan (losartan 50 mg Tab) 1 Tablets By Mouth Every day Unchanged metoprolol (metoprolol 50 mg ER Tab) 1 Tablets By Mouth Every day Unchanged spironolactone (spironolactone 50 mg Tab) 1 Tablets By Mouth Every day Allergies Tape (irritation) Problems Ongoing - Any [...] for choosing us for your care. Normal [facility] General Surgery Office/Clini c Noteon 10-05-2023 General Surgery Office/Clinic Note Chief Complaint post operative follow up HPI Staff 21 days post operative follow up post incisional hernia repair. Denies pain, no use of pain medication. Denies bleeding or drainage. Wearing abdominal binder as instructed. History of Present Illness 3 weeks s/p robotic-assisted ventral incisional hernia repair with mesh; doing well; no pain, no N/V or fevers; no pain meds; developed frequent loose stools approximately 10 days ago; had similar symptoms but they have resolved; frequent watery stools after eating or drinking, no blood or mucous, no crampy pain; no recent antibiotics other than 1 preop dose 3 weeks ago, no dietary changes; improvement with Imodium; wearing binder; no strenuous activities. Review of Systems ROS - Provider Constitutional: no fever, no [...] are negative or noncontributory. Physical Exam abd: obese, soft, nontender, nondistended, normal bs; incisions healing well, no erythema or drainage; no ecchymoses; minimal induration at repair site, no significant seroma. Assessment/Plan 1. Incisional hernia (K43.2: Incisional hernia without obstruction or gangrene) doing well, continue to wear abd binder for 1 week, then can discontinue, then gradually resume regular activities; call with problems/questions; loose stools possible viral verses related to NSAID use; patient wishes to hold off on stool studies or other treatments for now, since improving; will call with problems/questions. Follow-up No qualifying data [...] HTN (hypertension) Obesity Plantar fasciitis Procedure/Surgical History Repair of incisional hernia (09/14/2023), Laparoscopic cholecystectomy (01/10/2023), Colonoscopy (09/17/2020), Right shoulder arthroscopy with extensive glenohumeral debridement, subacromial decompression, mini-open rotator cuff repair (11/23/2016), Rt/Lt Heart Catheterization (07/11/2015), Colonoscopy, Excision of basal cell carcinoma, Repair of right inguinal hernia, Small bowel resection, Tonsillectomy. Medications albuterol 0.083% Inh Daniella 3 mL, 2.5 mg= 3 mL, NEB, q6hr, PRN Aspirin 81 mg Tab-EC, 81 mg= 1 tab(s), Oral, Daily atorvastatin 80 mg Tab, 80 mg= 1 tab(s), Oral, Daily losartan 50 mg Tab, 50 mg= 1 tab(s), Oral, Daily metoprolol 50 mg ER Tab, 50 mg= 1 tab(s), Oral, Daily Plavix 75 mg Tab, 75 mg= 1 tab(s), Oral, Daily spironolactone 50 mg Tab, 50 mg= 1 tab(s), Oral, Daily Wixela Inhub, 1 puff, Inhalation, BID Allergies Tape (irritation) Social History Alcohol - Denies Alcohol Use, 07/08/2015 Substance Abuse - Denies Substance Abuse, 07/08/2015 Tobacco - Denies Tobacco Use, 11/10/2016 Former smoker, quit more than 30 days ago Tobacco Use:. Never Smokeless Tobacco Use:. Cigarettes, 0.1 per day. Started age 20.0 Years. Stopped age 42 Years., 07/12/2023 Family History Acute myocardial infarction: Father. Diabetes mellitus type 2: Brother. Heart failure: Father. Immunizations Vaccine Date Status Comments influenza virus vaccine, inactivated - Not Given Patient Refuses SARS-CoV-2 (COVID-19) mRNA-1273 vaccine 09/19/2020 Recorded SARS-CoV-2 (COVID-19) mRNA-1273 vaccine 08/22/2020 Recorded Normal [facility] Comment on above: Result Comment: Elec tronically Signed By: LIN FENTON, Marbin Carrillo\.br\Date and Time Signed: 10/05/23 17:20 EDT Pathology Noteon 09-29-2023 Pathology Note [id number]#1.00TIFF Normal [facility] Ambulatory Visit Summaryon 0 09-21-2023 Ambulatory Visit Summary ABRAHAM HARRY Ryann :1960 Visit Date:09/21/2023 Ambulatory Visit Instructions Your Care Team Attending Physician - Marbin CEBALLOS MD Primary Care Physician - NIRAV CAIN DO This Is Your Medications List albuterol (albuterol 0.083% Inh Daniella 3 mL) aspirin (Aspirin 81 mg Tab-EC) atorvastatin (atorvastatin 80 mg Tab) clopidogrel (Plavix 75 mg Tab) fluticasone-salmeterol (Wixela Inhub) losartan (losartan 50 mg Tab) metoprolol (metoprolol 50 mg ER Tab) spironolactone (spironolactone 50 mg Tab) Procedures Performed Repair of incisional hernia (09/14/2023), Laparoscopic cholecystectomy (01/10/2023), Colonoscopy (09/17/2020), Right shoulder arthroscopy with extensive glenohumeral debridement, subacromial decompression, mini-open rotator cuff repair (11/23/2016), Rt/Lt Heart Catheterization (07/11/2015), Colonoscopy, Excision of basal cell carcinoma, Repair of right inguinal hernia, Small bowel resection, Tonsillectomy. Medications What How Much When Instructions Unchanged albuterol (albuterol 0.083% Inh Daniella 3 mL) 3 Milliliter Nebulized inhalation (aerosol) Every 6 hours as needed for Shortness of breath or wheezing Unchanged aspirin (Aspirin 81 mg Tab-EC) 1 Tablets By Mouth Every day Unchanged atorvastatin (atorvastatin 80 mg Tab) 1 Tablets By Mouth Every day Unchanged clopidogrel (Plavix 75 mg Tab) 1 Tablets By Mouth Every day Unchanged fluticasone-salmeterol (Wixela Inhub) 1 puff Inhalation 2 times a day Unchanged losartan (losartan 50 mg Tab) 1 Tablets By Mouth Every day Unchanged metoprolol (metoprolol 50 mg ER Tab) 1 Tablets By Mouth Every day Unchanged spironolactone (spironolactone 50 mg Tab) 1 Tablets By Mouth Every day Allergies Tape (irritation) Problems Ongoing - Any [...] you for choosing us for your care. [facility] General Surgery Office/Clini c Noteon 09-21-2023 General Surgery Office/Clinic Note Chief Complaint post operative follow up HPI Staff 7 day post operative follow up post incisional hernia repair. Denies discomfort, no use of pain medication. Denies bleeding or drainage. Bowels moving well. Wearing abdominal binder as instructed. History of Present Illness 1 week s/p robotic-assisted ventral incisional hernia repair with mesh (IPOM); doing well, denies pain, no drainage from incisions; normal bms, voiding well; wearing binder, no strenuous activities. Review of Systems ROS - Provider Constitutional: no fever, no [...] negative or noncontributory. Physical Exam abd: soft, nontender, nondistended, incisions without erythema or drainage; minimal resolving ecchymoses around incisions and in supraumbilical area, minimal induration at hernia site. Assessment/Plan 1. Incisional hernia (K43.2: Incisional hernia without obstruction or gangrene) doing well, continue to wear abdominal binder at all times; no lifting > 10 lbs for 3 weeks; follow up in 2 weeks; call sooner if problems/questions. Follow-up No qualifying data available Problem [...] HTN (hypertension) Obesity Plantar fasciitis Procedure/Surgical History Repair of incisional hernia (09/14/2023), Laparoscopic cholecystectomy (01/10/2023), Colonoscopy (09/17/2020), Right shoulder arthroscopy with extensive glenohumeral debridement, subacromial decompression, mini-open rotator cuff repair (11/23/2016), Rt/Lt Heart Catheterization (07/11/2015), Colonoscopy, Excision of basal cell carcinoma, Repair of right inguinal hernia, Small bowel resection, Tonsillectomy. Medications albuterol 0.083% Inh Daniella 3 mL, 2.5 mg= 3 mL, NEB, q6hr, PRN Aspirin 81 mg Tab-EC, 81 mg= 1 tab(s), Oral, Daily atorvastatin 80 mg Tab, 80 mg= 1 tab(s), Oral, Daily losartan 50 mg Tab, 50 mg= 1 tab(s), Oral, Daily metoprolol 50 mg ER Tab, 50 mg= 1 tab(s), Oral, Daily Plavix 75 mg Tab, 75 mg= 1 tab(s), Oral, Daily spironolactone 50 mg Tab, 50 mg= 1 tab(s), Oral, Daily Wixela Inhub, 1 puff, Inhalation, BID Allergies Tape (irritation) Social History Alcohol - Denies Alcohol Use, 07/08/2015 Substance Abuse - Denies Substance Abuse, 07/08/2015 Tobacco - Denies Tobacco Use, 11/10/2016 Former smoker, quit more than 30 days ago Tobacco Use:. Never Smokeless Tobacco Use:. Cigarettes, 0.1 per day. Started age 20.0 Years. Stopped age 42 Years., 07/12/2023 Family History Acute myocardial infarction: Father. Diabetes mellitus type 2: Brother. Heart failure: Father. Immunizations Vaccine Date Status Comments influenza virus vaccine, inactivated - Not Given Patient Refuses SARS-CoV-2 (COVID-19) mRNA-1273 vaccine 09/19/2020 Recorded SARS-CoV-2 (COVID-19) mRNA-1273 vaccine 08/22/2020 Recorded Normal [facility] Comment on above: Result Comment: Elec tronically Signed By: LIN FENTON, Marbin Chaudhari\Date and Time Signed: 09/21/23 16:25 EDT Consultation/Specialist Note on 09-19-2023 Consultation/Specia list Note [id number][facility] 09-19-2023 Outside Records [id number]#1.[facility] Operative Reporton Operative Report [id number]#1.00TIFF Normal [facility] Mihir 09-14-2023 L Specimen: [id number] eceived: 09/15/23 Status: FILIBERTO Moncad[place]onny Num: [id number] Spec Type: Surgical Subm Dr: Marbin Ceballos MD FACS Tissues: A Soft Tissue/Surgical Margin-Other than Tumor,Mass,Lip or Sho (PERITONEUM) Procedures: HE, Gross/Micro L4 Age/ Patient Sex Location Account Attending Physician Abraham Harry 62/M [facility] [id number] Marbin Ceballos MD FACS SPEC NUM: [id number] RECD: 09/15/23 STATUS: FILIBERTO LORENZO NUM: [id number] TONG: 09/14/[address]: Marbin Ceballos MD FACS ENTERED: 09/15/23 [facility] DR: William Christie SPEC TYPE: Surgical DEPT: JONATHAN DOTSON ORDERED: HE, Gross/Micro L4 ORDERED: HE, Gross/Micro L4 Pathological Diagnosis Soft tissue, incisional region, repair excision: -Consistent with moderately incarcerated herniorrhaphy membranous soft tissue exhibiting apparently marked irregularly thickened fascial layer of hernial content Gross Description Received in formalin, labeled with the patient's name, date of and peritoneum is a 3.1 x 2.2 x 0.5 cm rubbery and cauterized east-pink membranous tissue fragment. The specimen is serially sectioned revealing unremarkable fibrous cut surfaces. Tail End Rider sections are submitted in A1. Clinical history: Incisional hernia TW CPT Codes 99917 -------- -------- Specimen: [id number] Received: 09/15/23 Status: FILIBERTO [place] Num: [id number] Spec Type: Surgical Subm Dr: Marbin Ceballos MD FACS Tissues: A Soft Tissue/Surgical Margin-Other than Tumor,Mass,Lip or Sho (PERITONEUM) Procedures: Duran ROBLES/Fermin L4 -------- Patient: Abraham Harry [id number] (Continued) -------- Signed (signature on file) Ena Jain MD 09/16/232035 [facility] Provider Orderson 09-14-2023 Provider Orders [id number]#1.[facility] ECG 12-Leadon 09-02-2023 ECG 12-Lead [id number]#1.00TIFF [facility] Lab Reportson 09-02-2023 Lab Reports [id number]#1.00TIFF [facility] Lab Reports [id number]#1.00TIFF [facility] RAD - MISCon 09-02-2023 RAD - MISC [id number]#1.00TIFF [facility] Pre-Certification Formon Pre-Certification Form [id number]#1.00TIFF [facility] Provider Orderson 08-25-2023 Provider Orders [id number]#1.[facility] Insurance Correspondenceon 0 08-24-2023 Insurance Correspondence [id number]#1.[facility] 08-16-2023 Forms [id number]#1.00TIFF [facility] General Surgery Office/Clini c Noteon 08-04-2023 General [...] open procedure; informed consent obtained. signs/symptoms of incarceration/strangulation of hernia explained in [...] PRN A (more content not included)... Normal [facility] Comment on above: Result Comment: Elec tronically Signed By: LIN FENTON, Marbin Carrillo\.br\Date and Time Signed: 08/04/23 08:34 EDT Consent for Procedure/Surger roxyn 08-03-2023 Consent for Procedure/Surgery [id number]#1.00TIFF [facility] Ambulatory Visit Summaryon 0 08-02-2023 Ambulatory [...] you for choosing us for your care. [facility] RAD - CT Reporton 08-01-2023 RAD - CT Report [id number]#1.00TIFF [facility] Rad - Other Radiology Report on 07-28-2023 Rad - Other Radiology Report [id number]#1.00OTGTIFF [facility] Pre-Certification Formon Pre-Certification Form [id number]#1.00TIFF [facility] Lab Reportson 07-26-2023 Lab Reports [id number]#1.00TIFF [facility] Miscellaneouson 07-20-2023 Miscellaneous [id number]#1.00OTGTIFF [facility] Ambulatory Visit Summaryon 0 07-12-2023 Ambulatory Visit Summary ABRAHAM HARRY :1960 Visit Date:07/12/2023 Ambulatory Visit Instructions Your Care Team Attending Physician - LIN FENTON, Marbin Carrillo Primary Care Physician - HOUSE NIRAV LADD Referring Physician - NIRAV CAIN [...] for choosing us for your care. Normal [facility] Physician Referralon 024 Physician Referral [id number]#1.00TIFF [facility] Lab - Other Lab Resultson Lab - Other Lab Results [id number]#1.00OTGTIFF [facility] Lab - Other Lab Results [id number]#1.00OTGTIFF [facility] Lab - Other Lab Results [id number]#1.00OTGTIFF [facility] Lab - Other Lab Results [id number]#1.00OTGTIFF [facility] Lab - Other Lab Resultson Lab - Other Lab Results [id number]#1.00OTGTIFF [facility] Konstantin White Allergenon 023 Konstantin White Allergen <0.10 Normal Class 0 [facility] Comment on above: Performed By: #### S STACI KUHN, SYCAMORE, KONSTANTIN WHITE, MULBERRY WHITE, BIRCH TREE #### [facility] , [place] Common Silver All chucky 04-05-2023 [place] Common Silver Aller <0.10 Normal Class 0 [facility] Comment on above: Performed By: #### S STACI KUHN, SYCAMORE, KONSTANTIN WHITE, MULBERRY WHITE, BIRCH TREE #### [facility] , [place], White Allergenon 1 06-06-2022 [place], White Allergen <0.10 Normal Class 0 [facility] Comment on above: Result Comment: Perf ormed at: [facility] [address] [id number] Physiological Chemist: Christiana Arenas MD, Phone: [phone] PERFORMED BY: [address] [place] [address] PATHOLOGIST SPEECH PATHOLOGY TEACHER EDUARD MARCANO M.D. Performed By: #### S STACI KUHN, SYCAMORE, KONSTANTIN WHITE, MULBERRY WHITE, BIRCH TREE #### [facility] , [place] Sheep Allergenon [place] Sheep Allergen 0.10 Critically abnormal Class 0/I [facility] Comment on above: Result Comment: Sapphire avitia [...] MULBERRY WHITE, BIRCH TREE #### [facility] , [place] Allergenon 12-05-20 23 [place] Allergen 0.15 Critically abnormal Class 0/I [facility] Comment on above: Result Comment: Perf ormed at: - [facility] [address] [id number] Physiological Chemist: Christiana Arenas MD, Phone: [phone] Performed By: #### S ORREL SHE, SYCAMORE, KONSTANTIN WHITE, MULBERRY WHITE, BIRCH TREE #### [facility] , Outside Recordson 03-23-2023 Outside Records [id number]#[id number] Normal [facility] Alternaria alternata IgE Ab [Units/volume] in SerumOrdered By: Chan Taylor on 03-22-2023 A. alternata IgE Qn (S) 0.22 kU/L Class 0/I [facility] Gabonese house dust mite IgE Ab [Units/volume] in SerumOrdered By: Chan Taylor on 03-22-2023 Gabonese house dust mite IgE Qn (S) 17.30 kU/L Class IV [facility] Area 5 Allergens with IgEon 03-22-2023 Alternaria Alternata 0.22 Critically abnormal Class 0/I [facility] Comment on above: Performed By: #### A LLERGEN 5 #### [facility] , Konstantin White Allergen Normal . [facility] Comment on above: Result Comment: Test not performed. Insufficient specimen to perform or complete analysis. Contacted your facility 03/31/2023 Performed By: #### A LLERGEN 5 #### [facility] , Aspergillis Fumigatus Allergen <0.10 Normal Class 0 [facility] Comment on above: Performed By: #### A LLERGEN 5 #### [facility] , Bermuda Grass Allergen 0.15 Critically abnormal Class 0/I [facility] Comment on above: Performed By: #### A LLERGEN 5 #### [facility] , [place] Common Silver Aller Normal . [facility] Comment on above: Result Comment: Test not performed. Insufficient specimen to perform or complete analysis. Contacted your facility 03/31/2023 Performed By: #### A LLERGEN 5 #### [facility] , Cat Hair/Dander Allergen 1.32 Critically abnormal Class II [facility] Comment on above: Performed By: #### A LLERGEN 5 #### [facility] , [place], Mountain Allergen 0.11 Critically abnormal Class 0/I [facility] Comment on above: Performed By: #### A LLERGEN 5 #### [facility] , Cladosporium Herbarum <0.10 Normal Class 0 [facility] Comment on above: Performed By: #### A LLERGEN 5 #### [facility] , CLASS DESCRIPTION Normal . [facility] Comment on above: Result Comment: Sapphire avitia [...] A LLERGEN 5 #### [facility] , Cockroach Malay Allergen 0.33 Critically abnormal Class I [facility] Comment on above: Performed By: #### A LLERGEN 5 #### [facility] , [place] Allergen <0.10 Normal Class 0 [facility] Comment on above: Performed By: #### A LLERGEN 5 #### [facility] , D Farinae Mite Allergen 17.30 Critically abnormal Class IV [facility] Comment on above: Performed By: #### A LLERGEN 5 #### [facility] , D Pteronyssinus Allergen 18.40 Critically abnormal Class IV [facility] Comment on above: Performed By: #### A LLERGEN 5 #### [facility] , Dog Hair/Dander Allergen 0.28 Critically abnormal Class 0/I [facility] Comment on above: Performed By: #### A LLERGEN 5 #### [facility] , Elm Tree Allergen <0.10 Normal Class 0 [facility] Comment on above: Performed By: #### A LLERGEN 5 #### [facility] , Immunoglobulin E 111 Normal 6-495 [facility] Comment on above: Performed By: #### A LLERGEN 5 #### [facility] , Maple/Minden Allergen 0.13 Critically abnormal Class 0/I [facility] Comment on above: Performed By: #### A LLERGEN 5 #### [facility] , Mouse Urine Allergen <0.10 Normal Class 0 [facility] Comment on above: Result Comment: PERF ORMED BY: [facility] [address] [place] [address] PATHOLOGIST SPEECH PATHOLOGY TEACHER EDUARD MARCANO M.D. Performed By: #### A LLERGEN 5 #### [facility] , Anita, White Allergen Normal . [facility] Comment on above: Result Comment: Test not performed. Insufficient specimen to perform or complete analysis. Contacted your facility 03/31/2023 Performed By: #### A LLERGEN 5 #### [facility] , Gallagher Tree Allergen <0.10 Normal Class 0 [facility] Comment on above: Performed By: #### A LLERGEN 5 #### [facility] , Pecan/Giles Tree Allergen <0.10 Normal Class 0 [facility] Comment on above: Performed By: #### A LLERGEN 5 #### [facility] , Penicillium Chrysogen Mold All <0.10 Normal Class 0 [facility] Comment on above: Performed By: #### A LLERGEN 5 #### [facility] , Pigweed Allergen <0.10 Normal Class 0 [facility] Comment on above: Performed By: #### A LLERGEN 5 #### [facility] , Ragweed Short Allergen 0.10 Critically abnormal Class 0/I [facility] Comment on above: Performed By: #### A LLERGEN 5 #### [facility] , [place] Sheep Allergen Normal . [facility] Comment on above: Result Comment: Test not performed. Insufficient specimen to perform or complete analysis. Contacted your facility 03/31/2023 Performed By: #### A LLERGEN 5 #### [facility] , Ainsworth Allergen Normal . [facility] Comment on above: Result Comment: Test not performed. Insufficient specimen to perform or complete analysis. Contacted your facility 03/31/2023 Performed By: #### A LLERGEN 5 #### [facility] , Thistle Macanese Allergen 0.18 Critically abnormal Class 0/I [facility] Comment on above: Performed By: #### A LLERGEN 5 #### [facility] , Benjy Allergen <0.10 Normal Class 0 [facility] Comment on above: Performed By: #### A LLERGEN 5 #### [facility] , [place] Tree Pollen Allergen 0.11 Critically abnormal Class 0/I [facility] Comment on above: Performed By: #### A LLERGEN 5 #### [facility] , Aspergillus fumigatus IgE Ab [Units/volume] in SerumOrdered By: Chan Taylor on 03-22-2023 A. fumigatus IgE Qn (S) <0.10 kU/L Class 0 [facility] Bermuda grass IgE Ab [Units/ volume] in SerumOrdered By: Chan Taylor on 03-22-2023 B[place] grass IgE Qn (S) 0.15 kU/L Class 0/I [facility] Boxelder IgE Ab [Units/volum e] in SerumOrdered By: Chan Taylor on 03-22-2023 Boxelder IgE Qn (S) 0.13 kU/L Class 0/I [facility] Cladosporium herbarum IgE Ab [Units/volume] in SerumOrdered By: [facility] Taylor on 03-22-2023 C. herbarum IgE Qn (S) <0.10 kU/L Class 0 [facility] Cockroach IgE Ab [Units/volu me] in SerumOrdered By: [facility] Taylor on 03-22-2023 Cockroach IgE Qn (S) 0.33 kU/L Class I [facility] [place] IgE Ab [Units/vol ume] in SerumOrdered By: [facility] Taylor on 03-22-2023 [place] IgE Qn (S) <0.10 kU/L Class 0 [facility] Dog dander IgE Ab [Units/vol ume] in SerumOrdered By: Chan Taylor on 03-22-2023 Dog dander IgE Qn (S) 0.28 kU/L Class 0/I [facility] Eosinophil Counton 3 Eosinophils (Bld) [#/Vol] 0.3 10*3/uL Normal 0.0-0.45 [facility] Comment on above: Order Comment: Reaso n for Exam Asthma with COPD Result Comment: PERF ORMED BY: [place] [address] PATHOLOGIST SPEECH PATHOLOGY TEACHER EDURAD MARCANO M.D. Performed By: #### E OS COUNT #### [facility] [address] [place] [address] [place] Eosinophils/100 WBC (Bld) 3.4 % Normal . [facility] Comment on above: Order Comment: Reaso n for Exam Asthma with COPD Performed By: #### E OS COUNT #### [facility] [address] [place] [id number] [place] WBC (Bld) [#/Vol] 8.6 10*3/uL Normal 4.1-10.5 [facility] Comment on above: Order Comment: Reaso n for Exam Asthma with COPD Performed By: #### E OS COUNT #### [facility] [address] Eosinophils Auto (Bld) [#/Vo l]Ordered By: Chan Taylor on 03-22-2023 Eosinophils (Bld) [#/Vol] 0.3 10*3/uL 0.0-0.45 [facility] Eosinophils/100 WBC Auto (Bl d)Ordered By: Chan Taylor on 03-22-2023 Eosinophils/100 WBC (Bld) 3.4 % . [facility] house dust mite IgE Ab [Units/volume] in SerumOrdered By: Chan Taylor on 03-22-2023 house dust mite IgE Qn (S) 18.40 kU/L Class IV [facility] IgE [Units/volume] in Serum or PlasmaOrdered By: Chan Taylor on 03-22-2023 IgE Qn 111 [IU]/mL 6-495 [facility] Leukocytes [#/volume] correc brandyn for nucleated erythrocytes in Blood by Automated counOrdered By: Chan Taylor on 03-22-2023 WBC corrected for nucl RBC Auto (Bld) [#/Vol] 8.6 10*3/uL 4.1-10.5 [facility] Mountain Juniper IgE Ab [Uni ts/volume] in SerumOrdered By: Chan Taylor on 03-22-2023 Mountain Juniper IgE Qn (S) 0.11 kU/L Class 0/I [facility] Mouse urine proteins IgE Ab [Units/volume] in SerumOrdered By: Chan Taylor on 03-22-2023 Mouse urine proteins IgE Qn (S) <0.10 kU/L Class 0 [facility] No Panel InformationOrdered By: Chan Taylor on 03-22-2023 Allergen Note See comment . [facility] Comment on above: Levels of Specific I gE Class Description of Class ----- < 0.10 0 Negative 0.10 - 0.31 0/I Equivocal/Low 0.32 - 0.55 I Low 0.56 - 1.40 II Moderate 1.41 - 3.90 III High 3.91 - 19.00 IV Very High 19.01 - 100.00 V Very High >100.00 Very High Pecan or Giles Tree IgE Ab [Units/volume] in SerumOrdered By: Chan Taylor on 03-22-2023 Pecan or Giles Tree IgE Qn (S) <0.10 kU/L Class 0 [facility] Saltwort IgE Ab [Units/volum e] in SerumOrdered By: Chan Taylor on 03-22-2023 Saltwort IgE Qn (S) 0.18 kU/L Class 0/I [facility] Serum Gabonese sycamore IgE antibody assay (units/volume)Ordered By: Chan Taylor on 03-22-2023 Gabonese A[place]worth IgE Qn (S) See comment . [facility] Comment on above: Test not performed. Insufficient specimen to perform orcomplete analysis.Contacted your facility 03/31/2023 Serum Penicillium chrysogenu m specific IgE antibody assayOrdered By: Chan Taylor on 03-22-2023 P. notatum IgE Qn (S) <0.10 kU/L Class 0 [facility] Serum cat dander IgG antibod y assay (units/volume)Ordered By: Chan Taylor on 03-22-2023 Cat dander IgG Qn (S) 1.32 kU/L Class II [facility] Serum rough pigweed IgE anti body assay (units/volume)Ordered By: Chan Taylor on 03-22-2023 Rough Pigweed IgE Qn (S) <0.10 kU/L Class 0 [facility] Serum short ragweed specific IgE antibody assayOrdered By: Chan Taylor on 03-22-2023 Common Ragweed IgE Qn (S) 0.10 kU/L Class 0/I [facility] Serum white elm IgG antibody assay (units/volume)Ordered By: Chan Taylor on 03-22-2023 White Elm IgG Qn (S) <0.10 kU/L Class 0 [facility] Sheep [place] IgE Ab [Units/v olume] in SerumOrdered By: Chan Taylor on 03-22-2023 Sheep [place] IgE Qn (S) See comment . [facility] Comment on above: Test not performed. Insufficient specimen to perform orcomplete analysis.Contacted your facility 03/31/2023 Silver Birch IgE Ab [Units/v olume] in SerumOrdered By: Chan Taylor on 03-22-2023 Silver Birch IgE Qn (S) See comment . [facility] Comment on above: Test not performed. Insufficient specimen to perform orcomplete analysis.Contacted your facility 03/31/2023 Benjy IgE Ab [Units/volume ] in SerumOrdered By: Chan Taylor on 03-22-2023 Benjy IgE Qn (S) <0.10 kU/L Class 0 [facility] IgE Ab [Units/volume] in SerumOrdered By: Chan Taylor on 03-22-2023 [place] IgE Qn (S) 0.11 kU/L Class 0/I [facility] White Konstantin IgE Ab [Units/volu me] in SerumOrdered By: Chan Taylor on 03-22-2023 White Konstantin IgE Qn (S) See comment . [facility] Comment on above: Test not performed. Insufficient specimen to perform orcomplete analysis.Contacted your facility 03/31/2023 [place] IgE Ab [Units/volu me] in SerumOrdered By: Chan Taylor on 03-22-2023 [place] IgE Qn (S) <0.10 kU/L Class 0 [facility] White mulberry IgE Ab [Units /volume] in SerumOrdered By: Chan Taylor on 03-22-2023 White mulberry IgE Qn (S) See comment . [facility] Comment on above: Test not performed. Insufficient specimen to perform orcomplete analysis.Contacted your facility 03/31/2023 Provider Letteron 03-14-2023 Provider Letter (Inserted Image. Dinora ble to display) March 14, 2023 ABRAHAM HARRY [address] [place], [place] [address] [address] : 1960 To Whom It May Concern, The above named person may return to work 03/15/2023 without restrictions. Sincerely, Dr. Marbin Ceballos MD General Surgery [facility] Lab - Other Lab Resultson Lab - Other Lab Results [id number]#1.00[facility] Outside Recordson 02-16-2023 Outside Records [id number]#1.00[facility] Patient Provided Health Data on 02-16-2023 Patient Provided Health Data [id number]#[address] [place] [address] Cult,Bloodon 01-31-2023 Cult,Blood Specimen Description .BLOOD Special Requests L HAND 2ML Culture NO GROWTH 5 DAYS Report Status FINAL 01/30/2023 [facility] Comment on above: Performed By: #### B C #### [facility] [employer] [address] [place] [address] [id number] Physiological Chemist: Candelario Kramer MD Cult,Blood Specimen Description .BLOOD Special Requests R AC 11ML Culture NO GROWTH 5 DAYS Report Status FINAL 01/30/2023 [facility] Comment on above: Performed By: #### B C #### [address] [id number] Physiological Chemist: Candelario Kramer MD Office Visit (Cardiology)on 01-27-2023 [...] Weight Tips; Status:Complete - Retrospective Authorization; Done: [id number] Some eating tips that can help you lose weight.; Status:Complete - Retrospective Authorization; Done: [id number] Hyperlipidemia Renew: Atorvastatin Calcium 80 MG Oral Tablet; TAKE 1 TABLET BY MOUTH EVERY DAY SocHx: Former smoker Tobacco Use Screening; Status:Complete; Done: [id number] Patient Instructions Please bring all medicines, vitamins, [...] for which she was urgently hospitalized at [facility]. He underwent laparoscopic cholecystectomy and was hospitalized for 5 days. More recently had some more abdominal discomfort and was transferred to [place] where he underwent MRI and HIDA scan. [...] negative for complaint. Vitals Vital Signs Recorded: [id number] 08:32AM Heart Rate80, L Radial [id number], LUE, Sitting [id number], LUE (more content not included)... Normal [place] Patient Handouton 01-27-2023 Patient Handout [id number]#1.00[facility] Tobacco Screening.on 023 Adult depression screening assessment No [facility] Work Phone: Fall risk assessment a) No falls within the last year [facility] Work Phone: Tobacco use status [facility] b) No [facility] Work Phone: CBC with Auto Differentialon 01-26-2023 Basophils (Bld) [#/Vol] 0.07 10*3/uL [facility] Basophils/100 WBC (Bld) 1 % 0 - 2 % [facility] Eosinophils (Bld) [#/Vol] 0.43 10*3/uL [facility] Eosinophils/100 WBC (Bld) 6 % High 1 - 4 % [facility] Erythrocyte distribution width (RBC) [Ratio] 13.6 % 11.8 - 14.4 % [facility] Hematocrit (Bld) [Volume fraction] 31.6 % Low 40.7 - 50.3 % [facility] Hemoglobin (Bld) [Mass/Vol] 10.3 g/dL Low 13.0 - 17.0 g/dL [facility] Immature granulocytes (Bld) [#/Vol] 0.05 10*3/uL [facility] Immature granulocytes/100 WBC (Bld) 1 % High 0 [facility] Lymphocytes/100 WBC (Bld) 19 % Low 24 - 43 % [facility] Lymphocytes/100 WBC (Bld) 1.33 % [facility] MCH (RBC) [Entitic mass] 30.5 pg 25.2 - 33.5 pg [facility] MCHC (RBC) [Mass/Vol] 32.6 g/dL 28.4 - 34.8 g/dL [facility] MCV (RBC) [Entitic vol] 93.5 fL 82.6 - 102.9 fL [facility] Monocytes/100 WBC (Bld) 6 % 3 - 12 % [facility] Monocytes/100 WBC (Bld) 0.41 % [facility] Neutrophils/100 WBC (Bld) 67 % High 36 - 65 % [facility] Nucleated RBC/100 WBC (Bld) [Ratio] 0.0 % 0.0 per 100 WBC [facility] Platelet mean volume (Bld) [Entitic vol] 10.7 fL 8.1 - 13.5 fL [facility] Platelets (Bld) [#/Vol] 249 10*3/uL [facility] RBC (Bld) [#/Vol] 3.38 10*6/uL Low 4.21 - 5.77 m/uL [facility] Segmented neutrophils/100 WBC (Bld) 4.77 % [facility] WBC other (Bld) [#/Vol] 7.1 [facility] CBC with Diffon 01-26-2023 Abs. Basophil 0.07 k/uL Normal 0.00-0.20 [facility] Comment on above: Performed By: #### P T CP, CDP #### [place] [address] Physiological Chemist: Candelario Kramer MD Abs.Imm.Granulocyte 0.05 k/uL Normal 0.00-0.30 [facility] Comment on above: Performed By: #### P TJAMES, CDP #### [place] [address] Physiological Chemist: Candelario Kramer MD Abs.Neutrophil (Seg) 4.77 k/uL Normal 1.50-8.10 [facility] Comment on above: Performed By: #### P T CP, CDP #### [place] [address] Physiological Chemist: Candelario Kramer MD Basophils/100 WBC (Bld) 1 % Normal 0-2 [facility] Comment on above: Performed By: #### P T CP, CDP #### [place] [address] Physiological Chemist: Candelario Kramer MD Eosinophils (Bld) [#/Vol] 0.43 10*3/uL Normal 0.00-0.44 [facility] Comment on above: Performed By: #### P T, CP, CDP #### [place] [address] Physiological Chemist: Candelario Kramer MD Eosinophils/100 WBC (Bld) 6 % High 1-4 [facility] Comment on above: Performed By: #### P T, CP, CDP #### [place] [address] Physiological Chemist: Candelario Kramer MD Erythrocyte distribution width (RBC) [Ratio] 13.6 % Normal 11.8-14.4 [facility] Comment on above: Performed By: #### P T, CP, CDP #### [place] [address] Physiological Chemist: Candelario Kramer MD Hematocrit (Bld) [Volume fraction] 31.6 % Low 40.7-50.3 [facility] Comment on above: Performed By: #### P T, CP, CDP #### [place] [address] Physiological Chemist: Candelario Kramer MD Hemoglobin (Bld) [Mass/Vol] 10.3 g/dL Low 13.0-17.0 [facility] Comment on above: Performed By: #### P T, CP, CDP #### [place] [address] Physiological Chemist: Candelario Kramer MD Immature granulocytes/100 WBC (Bld) 1 % High 0 [facility] Comment on above: Performed By: #### P T, CP, CDP #### [place] [address] Physiological Chemist: Candelario Kramer MD Lymphocytes (Bld) [#/Vol] 1.33 10*3/uL Normal 1.10-3.70 [facility] Comment on above: Performed By: #### P T, CP, CDP #### [facility] [employer] [address] [place] [address] Physiological Chemist: Candelario Kramer MD Lymphocytes/100 WBC (Bld) 19 % Low 24-43 [facility] Comment on above: Performed By: #### P T, CP, CDP #### [address] [address] Physiological Chemist: Candelario Kramer MD MCH (RBC) [Entitic mass] 30.5 pg Normal 25.2-33.5 [facility] Comment on above: Performed By: #### P T, CP, CDP #### [address] [address] Physiological Chemist: Candelario Kramer MD MCHC (RBC) [Mass/Vol] 32.6 g/dL Normal 28.4-34.8 [facility] Comment on above: Performed By: #### P T, CP, CDP #### [address] [address] Physiological Chemist: Candelario Kramer MD MCV (RBC) [Entitic vol] 93.5 fL Normal 82.6-102.9 [facility] Comment on above: Performed By: #### P T, CP, CDP #### [address] [address] Physiological Chemist: Candelario Kramer MD Monocytes (Bld) [#/Vol] 0.41 10*3/uL Normal 0.10-1.20 [facility] Comment on above: Performed By: #### P T, CP, CDP #### [address] [address] Physiological Chemist: Candelario Kramer MD Monocytes/100 WBC (Bld) 6 % Normal 3-12 [facility] Comment on above: Performed By: #### P T, CP, CDP #### [address] [address] Physiological Chemist: Candelario Kramer MD Neutrophil (Seg) 67 % High 36-65 [facility] Comment on above: Performed By: #### P T, CP, CDP #### [address] [address] Physiological Chemist: Candelario Kramer MD NRBC Automated 0.0 per 100 WBC Normal 0.0 [facility] Comment on above: Performed By: #### P T, CP, CDP #### [address] [address] Physiological Chemist: Candelario Kramer MD Platelet mean volume (Bld) [Entitic vol] 10.7 fL Normal 8.1-13.5 [facility] Comment on above: Performed By: #### P T, CP, CDP #### [address] [address] Physiological Chemist: Candelario Kramer MD Platelets (Bld) [#/Vol] 249 10*3/uL Normal 138-453 [facility] Comment on above: Performed By: #### P T, CP, CDP #### [address] [address] Physiological Chemist: Candelario Kramer MD RBC (Bld) [#/Vol] 3.38 10*6/uL Low 4.21-5.77 [facility] Comment on above: Performed By: #### P T, CP, CDP #### [address] [address] Physiological Chemist: Candelario Kramer MD WBC (Bld) [#/Vol] 7.1 10*3/uL Normal 3.5-11.3 [facility] Comment on above: Performed By: #### P T, CP, CDP #### [address] [address] Physiological Chemist: Candelario Kramer MD Comp Metabolic Profon 2022 Albumin [Mass/Vol] 3.6 g/dL Normal 3.5-5.2 [facility] Comment on above: Performed By: #### P T, CP, CDP #### [facility] [address] [place] [address] Physiological Chemist: Candelario Kramer MD Albumin/Glob Ratio 1.5 Normal 1.0-2.5 [facility] Comment on above: Performed By: #### P T, CP, CDP #### [facility] [employer] [address] [place] [address] Physiological Chemist: Candelario Kramer MD Alkaline Phos 209 U/L High 40-129 [facility] Comment on above: Performed By: #### P T, CP, CDP #### [facility] [employer] [address] [place] [address] Physiological Chemist: Candelario Kramer MD ALT [Catalytic activity/Vol] 87 U/L High 5-41 [facility] Comment on above: Performed By: #### P T, CP, CDP #### [facility] [address] [place] [address] Physiological Chemist: Candelario Kramer MD Anion gap [Moles/Vol] 11 mmol/L Normal 9-17 [facility] Comment on above: Performed By: #### P T, CP, CDP #### [facility] [employer] [address] [place] [address] Physiological Chemist: Candelario Kramer MD AST [Catalytic activity/Vol] 93 U/L High <40 [facility] Comment on above: Performed By: #### P T, CP, CDP #### [facility] [employer] [address] [place] [address] Physiological Chemist: Candelario Kramer MD Bilirubin [Mass/Vol] 0.9 mg/dL Normal 0.3-1.2 [facility] Comment on above: Performed By: #### P T, CP, CDP #### [address] [address] Physiological Chemist: Candelario Kramer MD Calcium [Mass/Vol] 8.6 mg/dL Normal 8.6-10.4 [facility] Comment on above: Performed By: #### P T, CP, CDP #### [address] [address] Physiological Chemist: Candelario Kramer MD Chloride [Moles/Vol] 105 mmol/L Normal 98-107 [facility] Comment on above: Performed By: #### P T, CP, CDP #### [address] [address] Physiological Chemist: Candelario Kramer MD CO2 [Moles/Vol] 22 mmol/L Normal 20-31 [facility] Comment on above: Performed By: #### P T, CP, CDP #### [address] [address] Physiological Chemist: Candelario Kramer MD Creatinine [Mass/Vol] 0.7 mg/dL Normal 0.7-1.2 [facility] Comment on above: Performed By: #### P T, CP, CDP #### [address] [address] Physiological Chemist: Candelario Kramer MD GFR/1.73 sq M.predicted among non-blacks MDRD (S/P/Bld) [Vol rate/Area] mL/min/{1.73_m2} Normal >60 [facility] Comment on above: Result Comment: These [...] renal tubular secretion. Performed By: #### P T CP, CDP #### [facility] [address] [place] [address] Physiological Chemist: Candelario Kramer MD Glucose [Mass/Vol] 90 mg/dL Normal 70-99 [facility] Comment on above: Performed By: #### P T, CP, CDP #### [facility] [address] [place] [address] Physiological Chemist: Candelario Kramer MD Potassium [Moles/Vol] 3.8 mmol/L Normal 3.7-5.3 [facility] Comment on above: Performed By: #### P T CP, CDP #### [address] [address] Physiological Chemist: Candelario Kramer MD Protein [Mass/Vol] 6.0 g/dL Low 6.4-8.3 [facility] Comment on above: Performed By: #### P T CP, CDP #### [facility] [employer] [address] [place] [address] Physiological Chemist: Candelario Kramer MD Sodium [Moles/Vol] 138 mmol/L Normal 135-144 [facility] Comment on above: Performed By: #### P T CP, CDP #### [facility] [address] [place] [address] Physiological Chemist: Candelario Kramer MD Urea nitrogen [Mass/Vol] 14 mg/dL Normal 8-23 [facility] Comment on above: Performed By: #### P T CP, CDP #### [facility] [employer] [address] [place] [address] Physiological Chemist: Candelario Kramer MD [facility] Metabolic Pane [facility] 01-26-2023 Albumin [Mass/Vol] 3.6 g/dL 3.5 - 5.2 g/dL [facility] Albumin/Globulin [Mass ratio] 1.5 {ratio} 1.0 - 2.5 [facility] ALP [Catalytic activity/Vol] 209 U/L High 40 - 129 U/L [facility] ALT [Catalytic activity/Vol] 87 U/L High 5 - 41 U/L [facility] Anion gap [Moles/Vol] 11 mmol/L 9 - 17 mmol/L [facility] AST [Catalytic activity/Vol] 93 U/L High NINF - 40 U/L [facility] Bilirubin [Mass/Vol] 0.9 mg/dL 0.3 - 1.2 mg/dL [facility] Calcium [Mass/Vol] 8.6 mg/dL 8.6 - 10. 4 mg/dL [facility] Chloride [Moles/Vol] 105 mmol/L 98 - 107 mmol/L [facility] CO2 [Moles/Vol] 22 mmol/L 20 - 31 mmol/L [facility] Creatinine [Mass/Vol] 0.7 mg/dL 0.7 - 1.2 mg/dL [facility] GFR/1.73 sq M.predicted MDRD (S/P/Bld) [Vol rate/Area] - PINF [facility] Comment on above: These results are [...] [Mass/Vol] 90 mg/dL 70 - 99 mg/dL [facility] Potassium [Moles/Vol] 3.8 mmol/L 3.7 - 5.3 mmol/L [facility] Protein [Mass/Vol] 6.0 g/dL Low 6.4 - 8.3 g/dL [facility] Sodium [Moles/Vol] 138 mmol/L 135 - 144 mmol/L [facility] Urea nitrogen [Mass/Vol] 14 mg/dL 8 - 23 mg/dL [facility] MRI ABDOMEN WO CONTRAST MRCP on 01-26-2023 [...] Rey Charles MD 01/26/23 Final result Normal [facility] Radiology Study observation (narrative) [facility] Surgically absent gallbladder. No biliary ductal dilatation [...] bowel distention. Scattered colonic diverticula are seen. [facility] CON[facility] Rey Charles MD - 01/26/2023 [...] of phase images, compatible with fatty infiltration [facility] NM HEPATOBILIARYon 3 NM HEPATOBILIARY EXAMINATION: NUCLEAR [...] Saurabh Paul MD 01/26/23 Final result Normal [facility] Radiology Study observation (narrative) [facility] No convincing scinti graphic evidence for a bile leak. [facility] CON[facility]ID[facility] EXAMINATION: NUCLEAR MEDICINE HEPATOBILIARY SCINTIGRAPHY (HIDA [...] pericolic gutter to suggest a bile leak. [facility] CON[facility] Saurabh Paul MD - 01/26/2023 EXAMINATION: NUCLEAR MEDICINE HEPATOBILIARY [...] scintigraphic evidence for a bile leak. [facility] [employer] No Panel Informationon 01-26 Interpretation and review of laboratory results Abnormal [facility] [employer] No Panel InformationOrdered By: Rey Charles on 01-26-2023 [facility] [employer] Work Phone: PTon 01-26-2023 INR Coag (PPP) [Relative time] 1.0 {INR} Normal [facility] Comment on above: Result Comment: Therapeutic Range: Moderate Anticoagulant Intensity: INR = 2.0-3.0 High Anticoagulant Intensity: INR = 2.5-3.5 Performed By: #### P T, CP, CDP #### [employer] [address] [place] [address] Physiological Chemist: Candelario Kramer MD PT Coag (PPP) [Time] 13.1 s Normal 11.7-14.9 [facility] Comment on above: Performed By: #### P T, CP, CDP #### [employer] [address] [place] [address] Physiological Chemist: Candelario Kramer MD [employer] 01-26-2023 INR Coag (PPP) [Relative time] 1.0 {INR} [facility] Comment on above: Therapeutic Range: Moderate Anticoagulant Intensity: INR = 2.0-3.0 High Anticoagulant Intensity: INR = 2.5-3.5 PT Coag (PPP) [Time] 13.1 s [facility] CBC with Auto Differentialon 01-25-2023 Basophils (Bld) [#/Vol] 0.05 10*3/uL [facility] Basophils/100 WBC (Bld) 1 % 0 - 2 % [facility] Eosinophils (Bld) [#/Vol] 0.35 10*3/uL [facility] Eosinophils/100 WBC (Bld) 4 % 1 - 4 % [facility] Erythrocyte distribution width (RBC) [Ratio] 13.8 % 11.8 - 14.4 % [facility] Hematocrit (Bld) [Volume fraction] 32.9 % Low 40.7 - 50.3 % [facility] Hemoglobin (Bld) [Mass/Vol] 10.6 g/dL Low 13.0 - 17.0 g/dL [facility] Immature granulocytes (Bld) [#/Vol] 0.04 10*3/uL [facility] Immature granulocytes/100 WBC (Bld) 1 % High 0 [facility] Lymphocytes/100 WBC (Bld) 19 % Low 24 - 43 % [facility] Lymphocytes/100 WBC (Bld) 1.50 % [facility] MCH (RBC) [Entitic mass] 30.0 pg 25.2 - 33.5 pg [facility] MCHC (RBC) [Mass/Vol] 32.2 g/dL 28.4 - 34.8 g/dL [facility] MCV (RBC) [Entitic vol] 93.2 fL 82.6 - 102.[address] [facility] [address] Monocytes/100 WBC (Bld) 6 % 3 - 12 % [facility] Monocytes/100 WBC (Bld) 0.51 % [facility] Neutrophils/100 WBC (Bld) 69 % High 36 - 65 % [facility] Nucleated RBC/100 WBC (Bld) [Ratio] 0.0 % 0.0 per 100 WBC [facility] Platelet mean volume (Bld) [Entitic vol] 10.4 fL 8.1 - 13.5 fL [facility] Platelets (Bld) [#/Vol] 300 10*3/uL [facility] RBC (Bld) [#/Vol] 3.53 10*6/uL Low 4.21 - 5.77 m/uL [facility] Segmented neutrophils/100 WBC (Bld) 5.55 % [facility] WBC other (Bld) [#/Vol] 8.0 [facility] CBC with Diffon 01-25-2023 Abs. Basophil 0.05 k/uL Normal 0.00-0.20 [facility] Comment on above: Performed By: #### C DP, CP, LACTIC #### [place] [address] Physiological Chemist: Candelario Kramer MD Abs.Imm.Granulocyte 0.04 k/uL Normal 0.00-0.30 [facility] Comment on above: Performed By: #### C DP, CP, LACTIC #### [place] [address] Physiological Chemist: Candelario Kramer MD Abs.Neutrophil (Seg) 5.55 k/uL Normal 1.50-8.10 [facility] Comment on above: Performed By: #### C DP, CP, LACTIC #### [facility] [employer] [address] [place] [address] Physiological Chemist: Candelario Kramer MD Basophils/100 WBC (Bld) 1 % Normal 0-2 [facility] Comment on above: Performed By: #### C DP, CP, LACTIC #### [facility] [employer] [address] [place] [address] Physiological Chemist: Candelario Kramer MD Eosinophils (Bld) [#/Vol] 0.35 10*3/uL Normal 0.00-0.44 [facility] Comment on above: Performed By: #### C DP, CP, LACTIC #### [place] [address] Physiological Chemist: Candelario Kramer MD Eosinophils/100 WBC (Bld) 4 % Normal 1-4 [facility] Comment on above: Performed By: #### C DP, CP, LACTIC #### [place] [address] Physiological Chemist: Candelario Kramer MD Erythrocyte distribution width (RBC) [Ratio] 13.8 % Normal 11.8-14.4 [facility] Comment on above: Performed By: #### C DP, CP, LACTIC #### [place] [address] Physiological Chemist: Candelario Kramer MD Hematocrit (Bld) [Volume fraction] 32.9 % Low 40.7-50.3 [facility] Comment on above: Performed By: #### C DP, CP, LACTIC #### [place] [address] Physiological Chemist: Candelario Kramer MD Hemoglobin (Bld) [Mass/Vol] 10.6 g/dL Low 13.0-17.0 [facility] Comment on above: Performed By: #### C DP, CP, LACTIC #### [place] [address] Physiological Chemist: Candelario Kramer MD Immature granulocytes/100 WBC (Bld) 1 % High 0 [facility] Comment on above: Performed By: #### C DP, CP, LACTIC #### [place] [address] Physiological Chemist: Candelario Kramer MD Lymphocytes (Bld) [#/Vol] 1.50 10*3/uL Normal 1.10-3.70 [facility] Comment on above: Performed By: #### C DP, CP, LACTIC #### [address] [address] Physiological Chemist: Candelario Kramer MD Lymphocytes/100 WBC (Bld) 19 % Low 24-43 [facility] Comment on above: Performed By: #### C DP, CP, LACTIC #### [place] [address] Physiological Chemist: Candelario Kramer MD MCH (RBC) [Entitic mass] 30.0 pg Normal 25.2-33.5 [facility] Comment on above: Performed By: #### C DP, CP, LACTIC #### [place] [address] Physiological Chemist: Candelario Kramer MD MCHC (RBC) [Mass/Vol] 32.2 g/dL Normal 28.4-34.8 [facility] Comment on above: Performed By: #### C DP, CP, LACTIC #### [place] [address] Physiological Chemist: Candelario Kramer MD MCV (RBC) [Entitic vol] 93.2 fL Normal 82.6-102.9 [facility] Comment on above: Performed By: #### C DP, CP, LACTIC #### [place] [address] Physiological Chemist: Candelario Kramer MD Monocytes (Bld) [#/Vol] 0.51 10*3/uL Normal 0.10-1.20 [facility] Comment on above: Performed By: #### C DP, CP, LACTIC #### [place] [address] Physiological Chemist: Candelario Kramer MD Monocytes/100 WBC (Bld) 6 % Normal 3-12 [facility] Comment on above: Performed By: #### C DP, CP, LACTIC #### [address] [address] Physiological Chemist: Candelario Kramer MD Neutrophil (Seg) 69 % High 36-65 [facility] Comment on above: Performed By: #### C DP, CP, LACTIC #### [address] [address] Physiological Chemist: Candelario Kramer MD NRBC Automated 0.0 per 100 WBC Normal 0.0 [facility] Comment on above: Performed By: #### C DP, CP, LACTIC #### [address] [address] Physiological Chemist: Candelario Kramer MD Platelet mean volume (Bld) [Entitic vol] 10.4 fL Normal 8.1-13.5 [facility] Comment on above: Performed By: #### C DP, CP, LACTIC #### [address] [address] Physiological Chemist: Candelario Kramer MD Platelets (Bld) [#/Vol] 300 10*3/uL Normal 138-453 [facility] Comment on above: Performed By: #### C DP, CP, LACTIC #### [address] [address] Physiological Chemist: Candelairo Kramer MD RBC (Bld) [#/Vol] 3.53 10*6/uL Low 4.21-5.77 [facility] Comment on above: Performed By: #### C DP, CP, LACTIC #### [address] [address] Physiological Chemist: Candelario Kramer MD WBC (Bld) [#/Vol] 8.0 10*3/uL Normal 3.5-11.3 [facility] Comment on above: Performed By: #### C DP, CP, LACTIC #### [address] [place] [address] Physiological Chemist: Candelario Kramer MD Comp Metabolic Profon 2022 Albumin [Mass/Vol] 3.8 g/dL Normal 3.5-5.2 [facility] Comment on above: Performed By: #### C DP, CP, LACTIC #### [facility] [employer] [address] [place] [address] Physiological Chemist: Candelario Kramer MD Albumin/Glob Ratio 1.5 Normal 1.0-2.5 [facility] Comment on above: Performed By: #### C DP, CP, LACTIC #### [facility] [employer] [address] [place] [address] Physiological Chemist: Candelario Kramer MD Alkaline Phos 229 U/L High 40-129 [facility] Comment on above: Performed By: #### C DP, CP, LACTIC #### [facility] [employer] [address] [place] [address] Physiological Chemist: Candelario Kramer MD ALT [Catalytic activity/Vol] 114 U/L High 5-41 [facility] Comment on above: Performed By: #### C DP, CP, LACTIC #### [facility] [address] [place] [address] Physiological Chemist: Candelario Kramer MD Anion gap [Moles/Vol] 11 mmol/L Normal 9-17 [facility] Comment on above: Performed By: #### C DP, CP, LACTIC #### [facility] [employer] [address] [place] [address] Physiological Chemist: Candelario Kramer MD AST [Catalytic activity/Vol] 189 U/L High <40 [facility] Comment on above: Performed By: #### C DP, CP, LACTIC #### [facility] [address] [place] [address] Physiological Chemist: Candelario rKamer MD Bilirubin [Mass/Vol] 0.8 mg/dL Normal 0.3-1.2 [facility] Comment on above: Performed By: #### C DP, CP, LACTIC #### [address] [address] Physiological Chemist: Candelario Kramer MD Calcium [Mass/Vol] 8.7 mg/dL Normal 8.6-10.4 [facility] Comment on above: Performed By: #### C DP, CP, LACTIC #### [address] [address] Physiological Chemist: Candelario Kramer MD Chloride [Moles/Vol] 105 mmol/L Normal 98-107 [facility] Comment on above: Performed By: #### C DP, CP, LACTIC #### [address] [address] Physiological Chemist: Candelario Kramer MD CO2 [Moles/Vol] 23 mmol/L Normal 20-31 [facility] Comment on above: Performed By: #### C DP, CP, LACTIC #### [address] [address] Physiological Chemist: Candelario Kramer MD Creatinine [Mass/Vol] 0.8 mg/dL Normal 0.7-1.2 [facility] Comment on above: Performed By: #### C DP, CP, LACTIC #### [address] [address] Physiological Chemist: Candelario Kramer MD GFR/1.73 sq M.predicted among non-blacks MDRD (S/P/Bld) [Vol rate/Area] mL/min/{1.73_m2} Normal >60 [facility] Comment on above: Result Comment: These [...] By: #### C DP, CP, LACTIC #### [facility] [employer] [address] [place] [address] Physiological Chemist: Candelario Kramer MD Glucose [Mass/Vol] 88 mg/dL Normal 70-99 [facility] Comment on above: Performed By: #### C DP, CP, LACTIC #### [facility] [address] [place] [address] Physiological Chemist: Candelario Kramer MD Potassium [Moles/Vol] 4.3 mmol/L Normal 3.7-5.3 [facility] Comment on above: Performed By: #### C DP, CP, LACTIC #### [address] [address] Physiological Chemist: Candealrio Kramer MD Protein [Mass/Vol] 6.3 g/dL Low 6.4-8.3 [facility] Comment on above: Performed By: #### C DP, CP, LACTIC #### [facility] [employer] [address] [place] [address] Physiological Chemist: Candelario Kramer MD Sodium [Moles/Vol] 139 mmol/L Normal 135-144 [facility] Comment on above: Performed By: #### C DP, CP, LACTIC #### [facility] [address] [place] [address] Physiological Chemist: Candelario Kramer MD Urea nitrogen [Mass/Vol] 15 mg/dL Normal 8-23 [facility] Comment on above: Performed By: #### C DP, CP, LACTIC #### [facility] [address] [place] [address] Physiological Chemist: Candelario Kramer MD [facility] Metabolic Pane [facility] 01-25-2023 Albumin [Mass/Vol] 3.8 g/dL 3.5 - 5.2 g/dL [facility] Albumin/Globulin [Mass ratio] 1.5 {ratio} 1.0 - 2.5 [facility] ALP [Catalytic activity/Vol] 229 U/L High 40 - 129 U/L [facility] ALT [Catalytic activity/Vol] 114 U/L High 5 - 41 U/L [facility] Anion gap [Moles/Vol] 11 mmol/L 9 - 17 mmol/L [facility] AST [Catalytic activity/Vol] 189 U/L High NINF - 40 U/L [facility] Bilirubin [Mass/Vol] 0.8 mg/dL 0.3 - 1.2 mg/dL [facility] Calcium [Mass/Vol] 8.7 mg/dL 8.6 - 10. 4 mg/dL [facility] Chloride [Moles/Vol] 105 mmol/L 98 - 107 mmol/L [facility] CO2 [Moles/Vol] 23 mmol/L 20 - 31 mmol/L [facility] Creatinine [Mass/Vol] 0.8 mg/dL 0.7 - 1.2 mg/dL [facility] GFR/1.73 sq M.predicted MDRD (S/P/Bld) [Vol rate/Area[facility] Comment on above: These results are [...] [Mass/Vol] 88 mg/dL 70 - 99 mg/dL [facility] Potassium [Moles/Vol] 4.3 mmol/L 3.7 - 5.3 mmol/L [facility] Protein [Mass/Vol] 6.3 g/dL Low 6.4 - 8.3 g/dL [facility] Sodium [Moles/Vol] 139 mmol/L 135 - 144 mmol/L [facility] Urea nitrogen [Mass/Vol] 15 mg/dL 8 - 23 mg/dL [facility] Lactic Acidon 01-25-2023 Lactic Acid, Whole Blood 1.7 mmol/L 0.7 - 2.1 mmol/L [facility] Lactic Acid,Whole Bl 1.7 mmol/L Normal 0.7-2.1 [facility] Comment on above: Performed By: #### C DP, CP, LACTIC #### [facility] [address] [id number] Physiological Chemist: Candelario Kramer MD No Panel Informationon 01-25 Interpretation and review of laboratory results Abnormal [facility] Ambulatory Visit Summaryon 0 01-19-2023 Ambulatory Visit Summary ABRAHAM HARRY Ryann :1960 Visit Date:01/19/2023 Ambulatory Visit Instructions Your [...] attack) HTN (hypertension) Obesity Plantar fasciitis Normal [facility] General Surgery Office/Clini c Noteon 01-19-2023 General Surgery Office/Clinic Note HPI Staff 9 day post operative follow up post lap cholecystectomy completed while in-patient at [facility]. Denies discomfort, no use of pain [...] SARS-CoV-2 (COVID-19) mRNA-1273 vaccine 08/22/2020 Recorded Normal [facility] Comment on above: Result Comment: Elec tronically Signed By: LIN FENTON, Marbin Chaudhari\Date and Time Signed: 01/19/23 16:30 EDT Operative Reporton Operative Report [id number]#1.00CD:127 Normal [facility] Pathology Noteon 01-17-2023 Pathology Note [id number]#1.00CD:127 Normal [facility] Consultation Noteon 01-13-20 Consultation Note [id number]#1.00CD:127 Normal [facility] Consultation Noteon 01-12-20 Consultation Note [id number]#1.00CD:127 Normal [facility] Consultation Note [id number]#1.00CD:127 Normal [facility] Consultation Note [id number]#1.00CD:127 Normal [facility] Consultation Note [id number]#1.00CD:127 [facility] Lab Reportson 01-11-2023 Lab Reports [id number]#1.00CD:127 Normal [facility] Lab Reports [id number]#1.00CD:127 [facility] Lab Reports [id number]#1.00CD:127 [facility] Lab Reports [id number]#1.00CD:127 Normal [facility] RAD - Ultrasound Reporton RAD - Ultrasound Report [id number]#1.00CD:127 Normal [facility] Cardiac Stress Teston 2022 Cardiac Stress Test [address], [address] [place] [address] Exercise Stress Test Patient Name: ABRAHAM Garzon Ordering Physician: Tray HARRY MD Study Date: 12/21/2022 Reading Physician: Tray Baca MD MRN/PID: [id number] Supervising [id number] Rey Baca Physician: Accession/Order#: [id number] Referring Physician: REY BACA Date of : 1960 PCP: [id number] Nirav Cain MD Gender: M Fellow: Height: 180.34 cm Nurse: Magali Parks RN Weight: 116.58 kg Postdoctoral Research Associate: CALLIE BSA: 2.35 m2 Technologist: BMI: 35.84 kg/m2 Additional Staff: Age: 62 years cc report to: Patient Location: cc report to: [id number] Rey Baca MD Study Type: Cardiac Stress Test Diagnosis/ICD: I25.10-Atherosclerotic heart disease; [id number] (primary) hypertension; R07.9-Chest pain, unspecified Indication: Hypertension Procedure/CPT: Stress Test Interpretation-[id number]; Stress Test Supervision-[id number] Falls Risk: Low: Patient has low risk [...] 0.4 mm depression. Stress Stage Data: + +---+----- -+-------+ HR Sys BP Thomas BP + +---+----- -+-------+ Baseline Resting 90 126 86 + +---+----- -+-------+ Baseline Standing 96 128 86 + +---+----- -+-------+ Stage I 122 136 82 + +---+----- -+-------+ Stage II 141 142 76 + +---+----- -+-------+ Recovery ECG: Recovery ECG showed normal sinus rhythm, with no abnormal findings. The heart rate recovery was normal. + +---+------+--- ----+ HR Sys BP Thomas BP + +---+------+--- ----+ Recovery I 138 148 82 + +---+------+--- ----+ Recovery II 130 138 76 + +---+------+--- ----+ Recovery III 115 138 82 + +---+------+--- ----+ Recovery IV 104 136 78 + +---+------+--- ----+ Summary: 1. Adequate level of stress achieved. 2. Minimal ST segment depression compared to baseline. Approximately 0.2 to 0.4 mm depression. 3. Normal Stress Test. [id number] Rey Baca MD Electronically signed on 12/23/2022 at 3:40:53 PM Final Normal [facility] Cardiac Stress Test MP-[facility] y [facility] DO Work Phone: Office Visit [...] Test; Status:Hold For - Scheduling,Retrospective Authorization; Requested for:[id number]; Class 2 obesity with body mass index (BMI) of 36.0 to 36.9 in adult Healthy Weight Tips; Status:Complete - Retrospective Authorization; Done: [id number] Some eating tips that can help you lose weight.; Status:Complete - Retrospective Authorization; Done: [id number] SocHx: Former smoker Tobacco Use Screening; Status:Complete; Done: [id number] Patient Instructions Please bring all medicines, vitamins, [...] a coronary angiogram 7 years ago in [facility] where he had moderate disease treated medically. [...] negative for complaint. Vitals Vital Signs Recorded: [id number] 09:21AM Heart Rate84, L Radial Ctviccxo237, LUE, Sitting Kwiwggmzx53, LUE, Sitting Height5 ft 10.5 in Edhadl274 lb BMI Ddxpktgbyy03.35 kg/m2 BSA Calculated2.33 Tobacco Useb) No PHQ-2 [...] auscultation. Card (more content not included)... Normal [facility] XR chest 2V*on 09-30-2022 XR chest 2V* [facility] [place] [address] [place] [address] XRay Report Signed Patient: Abraham Harry MR#: [id number] : 1960 Acct:[id number] Age/Sex: 61 / M ADM Date: 09/30/22 Loc: RT Room: Type: [facility] Attending Dr: Chan Taylor MD Copies to: Chan Taylor MD Ordering Provider: Chan Taylor MD Date of Service: 09/30/22 XR/XR chest 2V*: J44.9 Chest 2 views CLINICAL HISTORY: Shortness of breath, worse with exertion. COMPARISON: None FINDINGS: Heart normal in size. Lungs are clear. No free air. XR/XR chest 2V* IMPRESSION: NO ACUTE CARDIOPULMONARY ABNORMALITY. Impression dictated by: Rosales Porter Jr., D.O.09/30/2022 3:55 PM Dictation Location: [place] [address] Transcribed By: [facility] 09/30/22 155 Dictated By: Rosales Porter Jr, DO 09/30/22 1555 Signed By: 09/30/22 1555 Normal [facility] Office Visit (Cardiology)on 04-15-2022 Follow-up visit Diagnoses/Problems [...] Weight Tips; Status:Complete - Retrospective Authorization; Done: [id number] Some eating tips that can help you lose weight.; Status:Complete - Retrospective Authorization; Done: [id number] Hyperlipidemia Renew: Atorvastatin Calcium 80 MG Oral Tablet; TAKE 1 TABLET BY MOUTH EVERY DAY SocHx: Former smoker Tobacco Use Screening; Status:Complete; Done: [id number] Tobacco Use Screening; Status:Complete; Done: [id number] Patient Instructions Please bring all medicines, vitamins, [...] negative for complaint. Vitals Vital Signs Recorded: [id number] 03:07PM Heart Rate96, R Radial Xbeyctnh638, LUE, Sitting Phpfutugp49, LUE, Sitting Height5 ft 10.5 in Mjuqfu803 lb 3.2 oz BMI Cooblicsiw60.8 kg/m2 BSA Calculated2.37 Tobacco Useb) No Physical Exam Constitutional: alert and in no acute distress. Eyes: no erythema, swelling or discharge from the eye . Neck: neck is supple, symmetric, trachea midline, no masses and no thyromegaly . Pulmonary: no increased work of breathing or signs of respiratory distress and lungs clear to auscultation. Cardiovascula (more content not included)... Normal [facility] Tobacco Screening.on 022 Tobacco use status [facility] b) No -[facility] y [facility] DO Work Phone: CBC AUTO DIFFon 02-18-2022 BASO # 0.1 103/ul Normal 0.0-0.1 [facility] Comment on above: Performed By: #### C BC #### [facility] [address] [place] [address] Dr. Demetria Jain Basophils/100 WBC (Bld) 0.7 % Normal 0.2-2.0 [facility] Comment on above: Performed By: #### C BC #### [facility] [address] [address] Dr. Demetria Jain EO # 0.2 103/ul Normal 0.0-0.7 [facility] Comment on above: Performed By: #### C BC #### [facility] [address] [address] Dr. Demetria Jain Eosinophils/100 WBC (Bld) 2.4 % Normal 0.9-7.0 [facility] Comment on above: Performed By: #### C BC #### [facility] [address] [address] Dr. Demetria Jain Erythrocyte distribution width (RBC) [Ratio] 12.6 % Normal 11.0-15.0 [facility] Comment on above: Performed By: #### C BC #### [facility] [address] [address] Dr. Demetria Jain Hematocrit (Bld) [Volume fraction] 38.1 % Critically low 42.0-54.0 [facility] Comment on above: Performed By: #### C BC #### [facility] [address] [place] [address] Dr. Demetria Jain Hemoglobin (Bld) [Mass/Vol] 12.5 g/dL Critically low 14.0-18.0 [facility] Comment on above: Performed By: #### C BC #### [facility] [address] [address] Dr. Demetria Jain IG # 0.04 10e3/ul Critically high 0.00-0.03 [facility] Comment on above: Performed By: #### C BC #### [facility] [address] [address] Dr. Demetria Jain IG % 0.4 % Normal 0.0-0.5 [facility] Comment on above: Performed By: #### C BC #### [facility] [address] [place] [address] Dr. Demetria Jain LYMPH # 1.4 103/ul Normal 1.2-3.8 [facility] Comment on above: Performed By: #### C BC #### [facility] [address] [address] Dr. Demetria Jain Lymphocytes/100 WBC (Bld) 13.6 % Critically low 20.5-60.0 [facility] Comment on above: Performed By: #### C BC #### [facility] [address] [place] [address] Dr. Demetria Jain MANUAL DIFF REQ NO Normal [facility] Comment on above: Performed By: #### C BC #### [facility] [address] [address] Dr. Demetria Jain MCH (RBC) [Entitic mass] 30.2 pg Normal 25.9-34.0 [facility] Comment on above: Performed By: #### C BC #### [facility] [address] [address] Dr. Demetria Jain MCHC (RBC) [Mass/Vol] 32.8 g/dL Normal 29.9-35.2 [facility] Comment on above: Performed By: #### C BC #### [facility] [address] [address] Dr. Demetria Jain MCV (RBC) [Entitic vol] 92.0 fL Normal 80.0-94.0 [facility] Comment on above: Performed By: #### C BC #### [facility] [address] [place] [address] Dr. Demetria Jain MONO # 0.5 103/ul Normal 0.3-0.8 [facility] Comment on above: Performed By: #### C BC #### [facility] [address] [place] [address] Dr. Demetria Jain Monocytes/100 WBC (Bld) 4.5 % Normal 1.7-12.0 [facility] Comment on above: Performed By: #### C BC #### [facility] [address] [address] Dr. Demetria Jain NEUT # 7.9 103/ul Critically high 1.4-6.5 [facility] Comment on above: Performed By: #### C BC #### [facility] [address] [place] [address] Dr. Demetria Jain Neutrophils/100 WBC (Bld) 78.4 % Critically high 43.0-75.0 [facility] Comment on above: Performed By: #### C BC #### [facility] [address] [place] [address] Dr. Demetria Jain Platelet mean volume (Bld) [Entitic vol] 11.0 fL Normal 9.5-13.5 [facility] Comment on above: Performed By: #### C BC #### [facility] [address] [place] [address] Dr. Demetria Jain PLT 243 103/ul Normal 150-450 [facility] Comment on above: Performed By: #### C BC #### [facility] [address] [place] [address] Dr. Demetria Jain RBC 4.14 106/ul Critically low 4.70-6.10 [facility] Comment on above: Performed By: #### C BC #### [facility] [address] [place] [address] Dr. Demetria Jain WBC 10.0 103/ul Normal 4.0-11.0 [facility] Comment on above: Performed By: #### C BC #### [facility] [address] [place] [address] [address] Demetria Jain LIPID PROFILEon 02-18-2022 CHOL-HDL RATIO NORM SEE BELOW Normal [facility] Comment on above: Result Comment: 3.3 - 4.4 LOW RISK 4.4 - 7.1 AVERAGE RISK 7.1 - 11.0 MODERATE RISK >11.0 HIGH RISK Performed By: #### C MP, LIPID #### [facility] [address] [place] [address] [address] Demetria Jain Cholesterol [Mass/Vol] 171 mg/dL Normal <=200 [facility] Comment on above: Performed By: #### C MP, LIPID #### [facility] [address] [place] [address] [address] Demetria Jain Cholesterol in HDL [Mass/Vol] 78 mg/dL Critically high 40-60 [facility] Comment on above: Performed By: #### C MP, LIPID #### [facility] [address] [place] [address] [address] Demetria Jain Cholesterol in LDL [Mass/Vol] 83.6 mg/dL Normal [facility] Comment on above: Performed By: #### C MP, LIPID #### [facility] [address] [place] [address] [address] Demetria Jain Cholesterol.total/C holesterol in HDL [Mass ratio] 2.2 {ratio} Normal [facility] Comment on above: Performed By: #### C MP, LIPID #### [facility] [address] [place] [address] [address] Demetria Jain HDL NORMAL > or = 60 mg/dl - LO W CARDIOVASCULAR RISK <40 mg/dl - HIGH CARDIOVASCULAR RISK Normal [facility] Comment on above: Performed By: #### C MP, LIPID #### [facility] [address] [place] [address] [address] Demetria Jain LDL CALC NORMAL SEE BELOW Normal [facility] Comment on above: Result Comment: <100 mg/dl OPTIMAL 100 - 129 mg/dl NEAR OR ABOVE OPTIMAL 130 - 159 mg/dl BORDERLINE HIGH 160 - 189 mg/dl HIGH >190 mg/dl VERY HIGH Performed By: #### C MP, LIPID #### [facility] [address] [place] [address] Dr. Demetria Jain Triglyceride [Mass/Vol] 47 mg/dL Normal <=150 [facility] Comment on above: Performed By: #### C MP, LIPID #### [facility] [address] [place] [address] Dr. Demetria Jain VLDL CALC 9.4 mg/dL Normal [facility] Comment on above: Performed By: #### C MP, LIPID #### [facility] [address] [place] [address] Dr. Demetria Jain PROF 14(COMP METB)on 022 Albumin [Mass/Vol] 4.0 g/dL Normal 3.4-5.0 [facility] Comment on above: Performed By: #### C MP, LIPID #### [facility] [address] [place] [address] Dr. Demetria Jain Albumin/Globulin [Mass ratio] 1.1 {ratio} Normal [facility] Comment on above: Performed By: #### C MP, LIPID #### [facility] [address] [place] [address] Dr. Demetria Jain ALP [Catalytic activity/Vol] 89 U/L Normal 46-116 [facility] Comment on above: Performed By: #### C MP, LIPID #### [facility] [address] [place] [address] Dr. Demetria Jain ALT [Catalytic activity/Vol] 26 U/L Normal 16-63 [facility] Comment on above: Performed By: #### C MP, LIPID #### [facility] [address] [place] [address] Dr. Demetria Jain Anion gap [Moles/Vol] 15.0 mmol/L Normal [facility] Comment on above: Performed By: #### C MP, LIPID #### [facility] [address] [place] [address] Dr. Demetria Jain AST [Catalytic activity/Vol] 18 U/L Normal 15-37 [facility] Comment on above: Performed By: #### C MP, LIPID #### [facility] [address] [place] [address] [address] Demetria Jain Bilirubin [Mass/Vol] 0.7 mg/dL Normal 0.2-1.0 [facility] Comment on above: Performed By: #### C MP, LIPID #### [facility] [address] [place] [address] [address] Demetria Jain Calcium [Mass/Vol] 9.2 mg/dL Normal 8.5-10.1 [facility] Comment on above: Performed By: #### C MP, LIPID #### [facility] [address] [place] [address] [address] Demetria Jain Chloride [Moles/Vol] 100 mmol/L Normal 98-107 [facility] Comment on above: Performed By: #### C MP, LIPID #### [facility] [address] [place] [address] [address] Demetria Jain CO2 [Moles/Vol] 25.8 mmol/L Normal 21.0-32.0 [facility] Comment on above: Performed By: #### C MP, LIPID #### [facility] [address] [place] [address] [address] Demetria Jain Creatinine [Mass/Vol] 0.76 mg/dL Normal 0.70-1.30 [facility] Comment on above: Performed By: #### C MP, LIPID #### [facility] [address] [place] [address] Dr. Demetria Jain EGFR-AF VENEZUELAN >60 Normal >=60 [facility] Comment on above: Performed By: #### C MP, LIPID #### [facility] [address] [place] [address] [address] Demetria Jain EGFR-NON AF VENEZUELAN >60 Normal >=60 [facility] Comment on above: Performed By: #### C MP, LIPID #### [facility] [address] [place] [address] Dr. Demetria Jain Globulin (S) [Mass/Vol] 3.6 g/dL Normal [facility] Comment on above: Performed By: #### C MP, LIPID #### [facility] [address] [place] [address] [address] Demetria Jain Glucose [Mass/Vol] 87 mg/dL Normal 74-106 [facility] Comment on above: Performed By: #### C MP, LIPID #### [facility] [address] [place] [address] [address] Demetria Jain Potassium [Moles/Vol] 3.8 mmol/L Normal 3.5-5.1 [facility] Comment on above: Performed By: #### C MP, LIPID #### [facility] [address] [place] [address] [address] Demetria Jain Protein [Mass/Vol] 7.6 g/dL Normal 6.4-8.2 [facility] Comment on above: Performed By: #### C MP, LIPID #### [facility] [address] [place] [address] Dr. Demetria Jain Sodium [Moles/Vol] 137 mmol/L Normal 136-145 [facility] Comment on above: Performed By: #### C MP, LIPID #### [facility] [address] [place] [address] Dr. Demetria Jain Urea nitrogen [Mass/Vol] 15.0 mg/dL Normal 7.0-18.0 [facility] Comment on above: Performed By: #### C MP, LIPID #### [facility] [address] [place] [address] Dr. Demetria Jain Urea nitrogen/Creatinine [Mass ratio] 19.7 mg/mg Normal [facility] Comment on above: Performed By: #### C MP, LIPID #### [facility] [address] [place] [address] Dr. Demetria Jain CBC AUTO DIFFon 04-23-2021 BASO # 0.1 103/ul Normal 0.0-0.1 [facility] Comment on above: Performed By: #### C BC #### [facility] [address] [place] [address] [address] Demetria Jain Basophils/100 WBC (Bld) 0.5 % Normal 0.2-2.0 [facility] Comment on above: Performed By: #### C BC #### [facility] [address] [place] [address] [address] Demetria Jain EO # 0.3 103/ul Normal 0.0-0.7 [facility] Comment on above: Performed By: #### C BC #### [facility] [address] [place] [address] Dr. Demetria Jain Eosinophils/100 WBC (Bld) 2.8 % Normal 0.9-7.0 [facility] Comment on above: Performed By: #### C BC #### [facility] [address] [place] [address] Dr. Demetria Jain Erythrocyte distribution width (RBC) [Ratio] 12.7 % Normal 11.0-15.0 [facility] Comment on above: Performed By: #### C BC #### [facility] [address] [place] [address] Dr. Demetria Jain Hematocrit (Bld) [Volume fraction] 38.1 % Critically low 42.0-54.0 [facility] Comment on above: Performed By: #### C BC #### [facility] [address] [place] [address] Dr. Demetria Jain Hemoglobin (Bld) [Mass/Vol] 12.9 g/dL Critically low 14.0-18.0 [facility] Comment on above: Performed By: #### C BC #### [facility] [address] [place] [address] Dr. Demetria Jain IG # 0.04 10e3/ul Critically high 0.00-0.03 [facility] Comment on above: Performed By: #### C BC #### [facility] [address] [place] [address] Dr. Demetria Jain IG % 0.4 % Normal 0.0-0.5 [facility] Comment on above: Performed By: #### C BC #### [facility] [address] [place] [address] Dr. Demetria Jain LYMPH # 1.3 103/ul Normal 1.2-3.8 [facility] Comment on above: Performed By: #### C BC #### [facility] [address] [place] [address] Dr. Demetria Jain Lymphocytes/100 WBC (Bld) 11.5 % Critically low 20.5-60.0 [facility] Comment on above: Performed By: #### C BC #### [facility] [address] [place] [address] Dr. Demetria Jain MANUAL DIFF REQ NO Normal [facility] Comment on above: Performed By: #### C BC #### [facility] [address] [place] [address] Dr. Demetria Jain MCH (RBC) [Entitic mass] 30.4 pg Normal 25.9-34.0 [facility] Comment on above: Performed By: #### C BC #### [facility] [address] [place] [address] Dr. Demetria Jain MCHC (RBC) [Mass/Vol] 33.9 g/dL Normal 29.9-35.2 [facility] Comment on above: Performed By: #### C BC #### [facility] [address] [place] [address] Dr. Demetria Jain MCV (RBC) [Entitic vol] 89.9 fL Normal 80.0-94.0 [facility] Comment on above: Performed By: #### C BC #### [facility] [address] [place] [address] Dr. Demetria Jain MONO # 0.7 103/ul Normal 0.3-0.8 [facility] Comment on above: Performed By: #### C BC #### [facility] [address] [place] [address] Dr. Demetria Jain Monocytes/100 WBC (Bld) 6.3 % Normal 1.7-12.0 [facility] Comment on above: Performed By: #### C BC #### [facility] [address] [place] [address] Dr. Demetria Jain NEUT # 8.8 103/ul Critically high 1.4-6.5 [facility] Comment on above: Performed By: #### C BC #### [facility] [address] [address] [address] Demetria Jain Neutrophils/100 WBC (Bld) 78.5 % Critically high 43.0-75.0 [facility] Comment on above: Performed By: #### C BC #### [facility] [address] [place] [address] [address] Demetria Jain Platelet mean volume (Bld) [Entitic vol] 10.6 fL Normal 9.5-13.5 [facility] Comment on above: Performed By: #### C BC #### [facility] [address] [place] [address] [address] Demetria Jain PLT 226 103/ul Normal 150-450 [facility] Comment on above: Performed By: #### C BC #### [facility] [address] [place] [address] Dr. Demetria Jain RBC 4.24 106/ul Critically low 4.70-6.10 [facility] Comment on above: Performed By: #### C BC #### [facility] [address] [place] [address] Dr. Demetria Jain WBC 11.2 103/ul Critically high 4.0-11.0 [facility] Comment on above: Performed By: #### C BC #### [facility] [address] [place] [address] ABD/PELV W CONon 04-23-20 CT ABD/PELV W CON CLINICAL HISTORY: AB DOMINAL DISTENSION (GASEOUS). Right and left upper abdominal [...] EDIN SELF Date: 2021-04-23 21:42 Normal [facility] ER URINE PROFILEon 1 Bilirubin Ql (U) Negative Normal NEGATIVE [facility] Comment on above: Performed By: #### E RUR #### [facility] [address] [place] [address] Dr. Demetria Jain Clarity (U) CLEAR Normal CLEAR [facility] Comment on above: Performed By: #### E RUR #### [facility] [address] [place] [address] Dr. Demetria Jain Color (U) LT. YELLOW Normal YELLOW [facility] Comment on above: Performed By: #### E RUR #### [facility] [address] [place] [address] Dr. Demetria Jain ERUAHD A micrscopic examina tion will be performed if indicated. Normal [facility] Comment on above: Performed By: #### E RUR #### [facility] [address] [place] [address] Dr. Demetria Jain Glucose Ql (U) Negative Normal NEGATIVE [facility] Comment on above: Performed By: #### E RUR #### [facility] [address] [place] [address] Dr. Demetria Jain Hemoglobin Ql (U) Negative Normal NEGATIVE [facility] Comment on above: Performed By: #### E RUR #### [facility] [address] [place] [address] Dr. Demetria Jain Ketones Ql (U) Negative Normal NEGATIVE [facility] Comment on above: Performed By: #### E RUR #### [facility] [address] [place] [address] Dr. Demetria Jain LEUKOCYTES Negative Normal NEGATIVE [facility] Comment on above: Performed By: #### E RUR #### [facility] [address] [place] [address] Dr. Demetria Jain Nitrite Ql (U) Negative Normal NEGATIVE [facility] Comment on above: Performed By: #### E RUR #### [facility] [address] [place] [address] Dr. Demetria Jain pH (U) 5.5 [pH] Normal 5-9 [facility] Comment on above: Performed By: #### E RUR #### [facility] [address] [place] [address] Dr. Demetria Jain SPEC GRAVITY 1.025 Normal 1.005-<=1. 025 [facility] Comment on above: Performed By: #### E RUR #### [facility] [address] [place] [address] Dr. Demetria Jain UA PROTEIN Negative Normal NEGATIVE/ TRACE [facility] Comment on above: Performed By: #### E RUR #### [facility] [address] [place] [address] Dr. Demetria Jain UR MICRO IND NOT INDICATED Normal [facility] Comment on above: Performed By: #### E RUR #### [facility] [address] [place] [address] Dr. Demetria Jain Urobilinogen Qn (U) 0.2 {Cata'U}/dL Normal 0.2 - 1. 0 [facility] Comment on above: Performed By: #### E RUR #### [facility] [address] [place] [address] Dr. Demetria Jain LACTATE/LACTIC ACIDon 2020 Lactate [Moles/Vol] 1.7 mmol/L Normal 0.7-2.0 [facility] Comment on above: Performed By: #### L ACT #### [facility] [address] [place] [address] Dr. Demetria Jain LIPASEon 04-23-2021 Lipase [Catalytic activity/Vol] 68.0 U/L Normal 23.0-300.0 [facility] Comment on above: Performed By: #### C MP, LIPA #### [facility] [address] [place] [address] Dr. Demetria Jain PROF 14(COMP METB)on 021 Albumin [Mass/Vol] 3.7 g/dL Normal 3.5-5.0 [facility] Comment on above: Performed By: #### C MP, LIPA #### [facility] [address] [place] [address] Dr. Demetria Jain Albumin/Globulin [Mass ratio] 1.0 {ratio} [facility] Comment on above: Performed By: #### C MP, LIPA #### [facility] [address] [place] [address] Dr. Demetria Jain ALP [Catalytic activity/Vol] 99 U/L Normal 38-126 [facility] Comment on above: Performed By: #### C MP, LIPA #### [facility] [address] [place] [address] Dr. Demetria Jain ALT [Catalytic activity/Vol] 31 U/L Normal 21-72 [facility] Comment on above: Performed By: #### C MP, LIPA #### [facility] [address] [place] [address] Dr. Demetria Jain Anion gap [Moles/Vol] 15.0 mmol/L Normal [facility] Comment on above: Performed By: #### C MP, LIPA #### [facility] [address] [address] [address] Demetria Jain AST [Catalytic activity/Vol] 24 U/L Normal 17-59 [facility] Comment on above: Performed By: #### C MP, LIPA #### [facility] [address] [address] [address] Demetria Jain Bilirubin [Mass/Vol] 0.8 mg/dL Normal 0.2-1.3 [facility] Comment on above: Performed By: #### C MP, LIPA #### [facility] [address] [address] [address] Demetria Jain Calcium [Mass/Vol] 9.2 mg/dL Normal 8.4-10.2 [facility] Comment on above: Performed By: #### C MP, LIPA #### [facility] [address] [place] [address] Dr. Demetria Jain Chloride [Moles/Vol] 98 mmol/L Normal 98-107 [facility] Comment on above: Performed By: #### C MP, LIPA #### [facility] [address] [address] [address] Demetria Jain CO2 [Moles/Vol] 23.6 mmol/L Normal 22.0-30.0 [facility] Comment on above: Performed By: #### C MP, LIPA #### [facility] [address] [address] [address] Demetria Jain Creatinine [Mass/Vol] 0.93 mg/dL Normal 0.66-1.25 [facility] Comment on above: Performed By: #### C MP, LIPA #### [facility] [address] [address] [address] Demetria Jain EGFR-AF VENEZUELAN >60 Normal >=60 [facility] Comment on above: Performed By: #### C MP, LIPA #### [facility] [address] [address] [address] Demetria Jain EGFR-NON AF VENEZUELAN >60 Normal >=60 [facility] Comment on above: Performed By: #### C MP, LIPA #### [facility] [address] [address] [address] Demetria Jain Globulin (S) [Mass/Vol] 3.6 g/dL Normal [facility] Comment on above: Performed By: #### C MP, LIPA #### [facility] [address] [address] [address] Demetria Jain Glucose [Mass/Vol] 103 mg/dL Normal 74-106 [facility] Comment on above: Performed By: #### C MP, LIPA #### [facility] [address] [place] [address] Dr. Demetria Jain Potassium [Moles/Vol] 3.6 mmol/L Normal 3.4-5.0 [facility] Comment on above: Performed By: #### C MP, LIPA #### [facility] [address] [place] [place] [address] Dr. Demetria Jain Protein [Mass/Vol] 7.3 g/dL Normal 6.1-8.2 [facility] Comment on above: Performed By: #### C MP, LIPA #### [facility] [address] [place] [place] [address] Dr. Demetria Jain Sodium [Moles/Vol] 133 mmol/L Critically low 137-145 [facility] Comment on above: Performed By: #### C MP, LIPA #### [facility] [address] [address] [address] Demetria Jain Urea nitrogen [Mass/Vol] 15.0 mg/dL Normal 9.0-20.0 [facility] Comment on above: Performed By: #### C MP, LIPA #### [facility] [address] [place] [place] [address] Dr. Demetria Jain Urea nitrogen/Creatinine [Mass ratio] 16.1 mg/mg Normal [facility] Comment on above: Performed By: #### C MP, LIPA #### [facility] [address] [place] [place] [address] Dr. Demetria Jain TROPONIN, HIGH SENSITIVITYon 04-23-2021 HSTROP 9.3 pg/mL Normal 4.0-42.2 [facility] Comment on above: Result Comment: CUT- OFF POINTS HAVE BEEN ESTABLISHED BASED ON THE FOURTH UNIVERSAL DEFINITIONS OF MYOCARDIAL INFARCTION. THE UPPER REFERENCE LIMIT (URL) OF TROPONIN, DEFINED THE 99TH PERCENTILE OF cTnI DISTRIBUTION IN A REFERENCE POPULATION, HAS BEEN CONFIRMED THE DECISION THRESHOLD FOR [place] DIAGNOSIS. Performed By: #### H STROPN ####[facility] [address] [place], [place] [address]Zz. Demetria Jain Tobacco Screening.on 021 Fall risk assessment a) No falls within the last year -[facility] [address] DO Work Phone: Tobacco use status CPHS b) No -[facility] [address] DO Work Phone: CREATININEon 04-08-2020 Creatinine [Mass/Vol] 0.84 mg/dL Normal 0.70-1.33 [facility] Comment on above: Result Comment: For patients >49 years of age, the reference limit for Creatinine is approximately 13% higher for people identified as -Gabonese. Performed By: #### 3 44, 294, 36874 #### [facility] [place] [address] Cell Liner: Faraz Garcia MD Creatinine [Mass/Vol] 97 mL/min/1.73m2 Normal > OR = 60 [facility] Comment on above: Performed By: #### 3 75, 294, 41451 #### [facility] [address] Cell Liner: Faraz Garcia MD Creatinine [Mass/Vol] 113 mL/min/1.73m2 Normal > OR = 60 [facility] Comment on above: Performed By: #### 3 75, 294, 43935 #### [facility] [facility] [address] Cell Liner: Faraz Garcia MD ELECTROLYTE PANELon 04-08-20 20 Chloride [Moles/Vol] 102 mmol/L Normal 98-110 [facility] Comment on above: Performed By: #### 3 75, 294, 92879 #### [facility]-[address], [address] [place] [address] Cell Liner: Faraz Garcia MD CO2 [Moles/Vol] 28 mmol/L Normal 20-32 [facility] Comment on above: Performed By: #### 3 75, 294, 60595 #### [facility], [address] [place] [address] Cell Liner: Faraz Garcia MD Potassium [Moles/Vol] 3.6 mmol/L Normal 3.5-5.3 [facility] Comment on above: Performed By: #### 3 75, 294, 97429 #### [facility], [address] [place] [address] Cell Liner: Faraz Garcia MD Sodium [Moles/Vol] 139 mmol/L Normal 135-146 [facility] Comment on above: Performed By: #### 3 75, 294, 19243 #### [facility]-[address], [address] [place] [address] Cell Liner: Faraz Garcia MD UREA NITROGEN (BUN)on 2019 Urea nitrogen [Mass/Vol] 13 mg/dL Normal 7-25 [facility] Comment on above: Order Comment: FASTI NG: UNKNOWN Performed By: #### 3 75, 294, 81978 #### [facility]-[address], [address] [place] [address] Cell Liner: Faraz Garcia MD PROGRESSon 06-17-2017 PROGRESS HNO ID: [id number] thor: Sukhwinder Casey: (none)Author Type: PhysicianType: Progress NotesFiled: 06/17/2017 3:24 PMNote Text:Heart and Vascular InstituteFayette and Elayne Castaneda Department of Cardiovascular MedicineOUTPATIENT VISIT DATE06/17/17OUTPATIENT VISIT TYPEESTABLISHEDPRIMARY CARE PHYSICIAN:Nirav Cain MD[address] [place] [address]Dhwyl: [phone]: [phone] COMPLAINT:Coronary artery diseaseHISTORY OF PRESENT ILLNESS:Abraham Harry [...] in LAD/left circumflex. EF about 40%.- Cardiomyopathy ([facility]) 07/03/2015 EF 35?40%. Nonischemic- CHF (congestive heart failure) ([facility]) 07/11/15 EF 40%. EF improved to 50% on 10/17/15.- COPD (chronic obstructive pulmonary disease) ([facility])- HTN (hypertension)- Obesity- Obstructive sleep apnea- Plantar [...] d. @ 46 heart aneurysm- Heart Father [place] x 4ALLERGIES:ALLERGIESNo Known AllergiesMEDICATIONS:SPIRIVA WITH HANDIHALER 18 mcg inhalation capsule INL CONTENTS OF 1 C ONCEDAILY USING HANDIHALERspironolactone (ALDACTONE) 50 mg tablet Take 1 tablet by mouth once daily.isosorbide mononitrate ER (IMDUR) 30 mg 24 hr tablet Take 1 tablet bymouth once daily.budesonide-formoterol (SYMBICORT) 160-4.5 mcg/actuation inhaler Inhale 2Puffs as [...] Negative for: Anxiety, depressionSKIN: Negative for: Rashes, itchingHEMATOLOGICAL/LYMPHAT IC: Negative for: Easy bruising, easy bleeding,painful lymph nodesI personally interviewed, confirmed and edited the above information ifobtained by others.PHYSICAL EXAMINATION:BP 140/90 Pulse 93 Resp 18 Ht 180.3 cm (5' 11 ) Wt 121.6 kg (268lb) SpO2 98% BMI 37.38 kg/r6Isjctkq: Well appearing, in no acute distress. ObeseNeuro: Oriented to person, place and time, alert, cooperative.Eyes: Extra ocular movements intact, pupils react to lightNeck: No jugular venous distention, no palpable thyromegaly.Heart: Regular rhythm, S1, S2 normal, no S3, no S4. No murmur.Lungs: Clear to auscultation bilaterally. Good respiratory effort.Abdomen: Soft, nontender, bowel sounds normal, no palpablehepatosplenomegalySk in: No clubbing, no cyanosis.Extremities: Normal pulses in [...] have personally reviewed the above Cardiovascular Medicine Testing.IMPRESSION/PLAN:Rosales Harry is a 56 year old male [...] with further questions or concerns.Sukhwinder Soto M.D.Dale CastanedaDepartment of Cardiovascular MedicineHeart and Vascular InstituteRobin Ville [address], [place] [address]Dcrwra: [phone] Normal [facility] NM-NM Myocardial Spect Rest/ Stress 1 Day IMPORTon 06-10-2017 NM-NM Myocardial Spect Rest/Stress 1 Day IMPORT Images were obtained outside of [facility] [id number] Normal [facility] US-Echo Transthoracic w/ Con trast IMPORTon 06-10-2017 US-Echo Transthoracic w/ Contrast IMPORT Images were obtained outside of [facility] [id number] Normal [facility] CNOVon 05-31-2017 CNOV Office Visit (CARDFT) ----ABRAHAM HARRY ([id number]) 1960 MDate Time Provider Department05/31/17 3:00 PM SUKHWINDER SOTO During your visit today, we recorded the following information about you: Pulse Respiration Blood pressure Weight 89/minute 18/minute 126/80 119.3 kg Height 1.803 Emi Soto MD 05/31/2017 3:20 PM [facility] Department of Cardiovascular MedicineOUTPATIENT VISIT DATE05/31/17OUTPATIENT VISIT TYPEESTABLISHEDPRIMARY CARE PHYSICIAN:Nirav Cain MD[address] [place] [address]Jsoql: [phone]: [phone] COMPLAINT:Preoperative risk assessmentHISTORY OF PRESENT ILLNESS:Abraham Harry [...] disease inLAD/left circumflex. EF about 40%.- Cardiomyopathy ([facility]) 07/03/2015 EF 35?40%. Nonischemic- CHF (congestive heart failure) ([facility]) 07/11/15 EF 40%. EF improved to 50% on 10/17/15.- COPD (chronic obstructive pulmonary disease) ([facility])- HTN (hypertension)- Obesity- Obstructive sleep apnea- Plantar [...] d. @ 46 heart aneurysm- Heart Father [place] x 4ALLERGIES:ALLERGIESNo Known AllergiesMEDICATIONS:SPIRIVA WITH HANDIHALER 18 mcg inhalation capsule INL CONTENTS OF 1 C ONCEDAILY USING HANDIHALERspironolactone (ALDACTONE) 50 mg tablet Take 1 tablet by mouth once daily.isosorbide mononitrate ER (IMDUR) 30 mg 24 hr tablet Take 1 tablet by mouthonce daily.budesonide-formoterol (SYMBICORT) 160-4.5 mcg/actuation inhaler Inhale 2 Puffsas [...] Negative for: Anxiety, depressionSKIN: Negative for: Rashes, itchingHEMATOLOGICAL/LYMPHAT IC: Negative for: Easy bruising, easy bleeding, painfullymph nodesI personally interviewed, confirmed and edited the above information ifobtained by others.PHYSICAL EXAMINATION:BP 126/80 Pulse 89 Resp 18 Ht 180.3 cm (5' 11ANDquot;) Wt 119.3 kg (263lb) SpO2 98% BMI 36.68 kg/h8Etawwah: Well appearing, in no acute distress. ObeseNeuro: [...] pulses in distal lower extremities. Absent lower extremityedemaCARDIOVASCULAR MEDICINE TESTING:Electrocardiogram: 11/10/16 Sinus, occasional PVCs, inferior Q wavesEchocardiogram: 10/16/16SUMMARY/CONCLUSION:1. Normal left ventricular size with low normal [...] have personally reviewed the above Cardiovascular Medicine Testing.IMPRESSION/PLAN:Rosales Harry is a 56 year old male [...] with further questions or concerns.Sukhwinder Soto M.D.Dale CastanedaDepartment of Cardiovascular MedicineElyria Memorial Hospitalrt and Vascular Institute[address] [address]Vrvhye: [phone] Referring Provider: NIRAV CAIN SR [[id number]]Allergies As of Date: 05/31/2017(No Known Allergies)Date Reviewed: 05/31/2017Reviewed by: Nico Starkey (Laith) LAITH Aguilar - Fully AssessedPrimary Visit Diagnosis:Atherosclerosis of levelock coronary artery of levelock heart without angina pectoris [I25.10] Other Visit Diagnoses:Essential hypertension [I10] Systolic heart failure, unspecified heart failure chronicity (HCC) [I50.20]Order(s):ECHO [[id number]] Order #: [id number]: 1 FUTURE PHARMACOLOGIC STRESS W/NUC IMAGING [[id number]] Order #: [id number]: 1 NM CARDIAC PERF STRESS/PHARM [[id number]] Order #: [id number] FUTURE HOLTER MONITOR 48 HOUR [[id number]] Order #: [id number] FUTUREPrescriptions as of 05/31/2017 Sig: SPIRIVA WITH [...] Sheehan RN 05/31/2017 2:52 PM >> NICO AGIULAR May 31, 2017 2:52 PM Received from: External Pharmacy >> Gerardo Sheehan RN 05/31/2017 2:52 PM >> NICO AGUILAR May 31, 2017 2:52 PMProblem List As Of Date 05/31/2017 Noted Resolved Preoperative cardiovascular examination [Z01.81*INVALID FOR* HTN (hypertension) [I10] INVALID FOR* Atherosclerosis of levelock coronary artery of na*INVALID FOR* Acute on chronic systolic congestive heart fail*INVALID FOR* Abnormal stress test [R94.39] INVALID FOR* Chronic systolic congestive heart failure (HCC)*INVALID FOR* Dyspnea, unspecified [R06.00] INVALID FOR* Bilateral low back pain with sciatica [M54.40] INVALID FOR* Tachycardia [R00.0] INVALID FOR*Disposition: Return in about 2 weeks (around 06/14/2017).Follow-up and Disposition History RecordedEncounter Number: [id number] Status:Closed by SUKHWINDER SOTO MD on 05/31/17 Normal [facility] PROGRESSon 05-26-2017 PROGRESS HNO ID: [id number] thor: Sukhwinder Carmela: (none)Author Type: PhysicianType: Progress NotesFiled: 05/31/2017 3:20 PMNote Text:Heart and Vascular InstituteFayette and Elayne Castaneda Department of Cardiovascular MedicineOUTPATIENT VISIT DATE05/31/17OUTPATIENT VISIT TYPEESTABLISHEDPRIMARY CARE PHYSICIAN:Nirav Cain MD[address] [place] [address]Fioit: [phone]: [phone] COMPLAINT:Preoperative risk assessmentHISTORY OF PRESENT ILLNESS:Abraham Harry [...] in LAD/left circumflex. EF about 40%.- Cardiomyopathy ([facility]) 07/03/2015 EF 35?40%. Nonischemic- CHF (congestive heart failure) ([facility]) 07/11/15 EF 40%. EF improved to 50% on 10/17/15.- COPD (chronic obstructive pulmonary disease) ([facility])- HTN (hypertension)- Obesity- Obstructive sleep apnea- Plantar [...] d. @ 46 heart aneurysm- Heart Father [place] x 4ALLERGIES:ALLERGIESNo Known AllergiesMEDICATIONS:SPIRIVA WITH HANDIHALER 18 mcg inhalation capsule INL CONTENTS OF 1 C ONCEDAILY USING HANDIHALERspironolactone (ALDACTONE) 50 mg tablet Take 1 tablet by mouth once daily.isosorbide mononitrate ER (IMDUR) 30 mg 24 hr tablet Take 1 tablet bymouth once daily.budesonide-formoterol (SYMBICORT) 160-4.5 mcg/actuation inhaler Inhale 2Puffs as [...] Negative for: Anxiety, depressionSKIN: Negative for: Rashes, itchingHEMATOLOGICAL/LYMPHAT IC: Negative for: Easy bruising, easy bleeding,painful lymph nodesI personally interviewed, confirmed and edited the above information ifobtained by others.PHYSICAL EXAMINATION:BP 126/80 Pulse 89 Resp 18 Ht 180.3 cm (5' 11 ) Wt 119.3 kg (263lb) SpO2 98% BMI 36.68 kg/q6Vafdqwh: Well appearing, in no acute distress. ObeseNeuro: Oriented to person, place and time, alert, cooperative.Eyes: Extra ocular movements intact, pupils react to lightNeck: No jugular venous distention, no palpable thyromegaly.Heart: Regular rhythm, S1, S2 normal, no S3, no S4. No murmur.Lungs: Clear to auscultation bilaterally. Good respiratory effort.Abdomen: Soft, nontender, bowel sounds normal, no palpablehepatosplenomegalySk in: No clubbing, no cyanosis.Extremities: Normal pulses in distal lower extremities. Absent lowerextremity edemaCARDIOVASCULAR MEDICINE TESTING:Electrocardiogram: 11/10/16 Sinus, occasional PVCs, inferior Q wavesEchocardiogram: 10/16/16SUMMARY/CONCLUSION:1. Normal left ventricular size with low normal [...] have personally reviewed the above Cardiovascular Medicine Testing.IMPRESSION/PLAN:Rosales Harry is a 56 year old male with history of CAD, systolic HF,HTN here for follow upCoronary artery disease: Exertional shortness of breath associated withpalpitations and chest pain. 07/11/15 LHC shows distal RCA 60-70%stenosis. I have recommended [...] to contact us with further questions or concerns.Shania ChoeHelena Regional Medical Center of Cardiovascular MedicineElyria Memorial Hospitalrt and Vascular Institute[address] [place], [place] [address]Huooct: [phone] Normal [facility] CNOVon 11-15-2016 CNOV Office Visit (CARDFT) ----ABRAHAM HARRY ([id number]) 1960 [facility] Department11/15/16 9:30 AM SUKHWINDER SOTO During your visit today, we recorded the following information about you: Pulse Respiration Blood pressure Weight 80/minute 18/minute 147/97 115.2 kg Height 1.803 Emi Soto MD 11/15/2016 9:39 AM [facility] and Elayne Castaneda Department of Cardiovascular MedicineOUTPATIENT VISIT DATE 11/15/16OUTPATIENT VISIT TYPEESTABLISHEDPRIMARY CARE PHYSICIAN:Nirav Cain MD[address] [facility] [address]Yeawc: [phone]: [phone] COMPLAINT:Preoperative risk assessmentHISTORY OF PRESENT ILLNESS:Abraham Harry [...] disease inLAD/left circumflex. EF about 40%.- Cardiomyopathy ([facility]) 07/03/2015 EF 35?40%. Nonischemic- CHF (congestive heart failure) ([facility]) 07/11/15 EF 40%. EF improved to 50% on 10/17/15.- COPD (chronic obstructive pulmonary disease) ([facility])- HTN (hypertension)- Obesity- Obstructive sleep apnea- Plantar fasciitis Right footPAST SURGICAL [id number]: HERNIA REPAIR HXNo date: PAST SURGICAL HISTORY [...] Alcohol use NoFAMILY HISTORY Heart Father Comment: chris @ 44 heart aneurysm Heart Father Comment: [place] x 4ALLERGIES:ALLERGIESNo Known AllergiesMEDICATIONS:spirono lactone (ALDACTONE) 50 mg tablet Take 1 tablet by mouth once daily.isosorbide mononitrate ER (IMDUR) 30 mg 24 hr tablet Take 1 tablet by mouthonce daily.budesonide-formoterol (SYMBICORT) 160-4.5 mcg/actuation inhaler Inhale 2 Puffsas [...] Negative for: Anxiety, depressionSKIN: Negative for: Rashes, itchingHEMATOLOGICAL/LYMPHAT IC: Negative for: Easy bruising, easy bleeding, painfullymph nodesI personally interviewed, confirmed and edited the above information ifobtained by others.PHYSICAL EXAMINATION:BP 147/97 Pulse 80 Resp 18 Ht 180.3 cm (5' 11ANDquot;) Wt 115.2 kg (254lb) SpO2 96% BMI 35.43 kg/y1Zanxulb: Well appearing, in no acute distress. ObeseNeuro: [...] pulses in distal lower extremities. Absent lower extremityedemaCARDIOVASCULAR MEDICINE TESTING:Electrocardiogram: 11/10/16 Sinus, occasional PVCs, inferior Q wavesEchocardiogram: 10/16/16SUMMARY/CONCLUSION:1. Normal left ventricular size with low normal [...] have personally reviewed the above Cardiovascular Medicine Testing.IMPRESSION/PLAN:Rosales Harry is a 56 year old male [...] resume as soon as able from a bleedingstandpoint.Coronary artery disease: Stable, no evidence of angina [...] or concerns.Sukhwinder Soto M.D.Dale Dahl of Cardiovascular MedicineElyria Memorial Hospitalrt and Vascular InstituteAndrea Ville [address]Office: [phone] Referring Provider: RYLAN HOGAN [[id number]]Allergies As of Date: 11/15/2016(No Known Allergies)Date Reviewed: 11/15/2016Reviewed by: Nico Starkey (Rn) LAITH Aguilar - Fully AssessedReason for Visit: Cardiac Clearance [4105]Primary Visit Diagnosis:Atherosclerosis of levelock coronary artery of levelock heart without angina pectoris [I25.10] Other Visit [...] HTN (hypertension) [I10] INVALID FOR* Atherosclerosis of levelock coronary artery of na*INVALID FOR* Acute on chronic systolic congestive heart fail*INVALID FOR* Abnormal stress test [R94.39] INVALID FOR* Chronic systolic congestive heart failure (HCC)*INVALID FOR* Dyspnea, unspecified [R06.00] INVALID FOR* Bilateral low back pain with sciatica [M54.40] INVALID FOR* Tachycardia [R00.0] INVALID FOR*Disposition: Return in about 6 months (around 05/18/2017).Follow-up and Disposition History RecordedEncounter Number: [id number] Status:Closed by SUKHWINDER SOTO MD on 11/15/16 Normal [facility] PROGRESSon 11-10-2016 PROGRESS HNO ID: [id number] thor: Sukhwinder SotoSer: (none)Author Type: PhysicianType: Progress NotesFiled: 11/15/2016 9:39 AMNote Text:Heart and Vascular InstituteFayette and Elayne Gunter Department of Cardiovascular MedicineOUTPATIENT VISIT DATE 11/15/16OUTPATIENT VISIT TYPEESTABLISHEDPRIMARY CARE PHYSICIAN:Nirav Cain MD[address] [place] [address]Smbba: [phone]: [phone] COMPLAINT:Preoperative risk assessmentHISTORY OF PRESENT ILLNESS:Abraham Harry [...] in LAD/left circumflex. EF about 40%.- Cardiomyopathy ([facility]) 07/03/2015 EF 35?40%. Nonischemic- CHF (congestive heart failure) ([facility]) 07/11/15 EF 40%. EF improved to 50% on 10/17/15.- COPD (chronic obstructive pulmonary disease) ([facility])- HTN (hypertension)- Obesity- Obstructive sleep apnea- Plantar fasciitis Right footPAST SURGICAL [id number]: HERNIA REPAIR HXNo date: PAST SURGICAL HISTORY [...] Alcohol use NoFAMILY HISTORY Heart Father Comment: dVero @ 44 heart aneurysm Heart Father Comment: AURY grier 4ALLERGIES:ALLERGIESNo Known AllergiesMEDICATIONS:spirono lactone (ALDACTONE) 50 mg tablet Take 1 tablet by mouth once daily.isosorbide mononitrate ER (IMDUR) 30 mg 24 hr tablet Take 1 tablet bymouth once daily.budesonide-formoterol (SYMBICORT) 160-4.5 mcg/actuation inhaler Inhale 2Puffs as [...] Negative for: Anxiety, depressionSKIN: Negative for: Rashes, itchingHEMATOLOGICAL/LYMPHAT IC: Negative for: Easy bruising, easy bleeding,painful lymph nodesI personally interviewed, confirmed and edited the above information ifobtained by others.PHYSICAL EXAMINATION:BP 147/97 Pulse 80 Resp 18 Ht 180.3 cm (5' 11 ) Wt 115.2 kg (254lb) SpO2 96% BMI 35.43 kg/j8Dxgrusj: Well appearing, in no acute distress. ObeseNeuro: Oriented to person, place and time, alert, cooperative.Eyes: Extra ocular movements intact, pupils react to lightNeck: No jugular venous distention, no palpable thyromegaly.Heart: Regular rhythm, S1, S2 normal, no S3, no S4. No murmur.Lungs: Clear to auscultation bilaterally. Good respiratory effort.Abdomen: Soft, nontender, bowel sounds normal, no palpablehepatosplenomegalySk in: No clubbing, no cyanosis.Extremities: Normal pulses in distal lower extremities. Absent lowerextremity edemaCARDIOVASCULAR MEDICINE TESTING:Electrocardiogram: 11/10/16 Sinus, occasional PVCs, inferior Q wavesEchocardiogram: 10/16/16SUMMARY/CONCLUSION:1. Normal left ventricular size with low normal [...] have personally reviewed the above Cardiovascular Medicine Testing.IMPRESSION/PLAN:Rosales Harry is a 56 year old male [...] M.D.[facility]ahl of Cardiovascular MedicineHeart and Vascular InstituteMer[facility], [place] [address]Zxttvm: [phone] [facility] Social History Date Type Detail Facility Start: 01-26-2023 Caffeine use Caffeine use [facility] DO Work Phone: Comment on above: 1 pot decaf coffee d aily; quit 2006 minimal sm oker; 1 pot coffee daily; Start: 01-26-2023 [facility]igned At [facility] Start: 01-26-2023 Tobacco smoking stat us [facility] Never smoked tobacco [facility] [employer] Work Phone: Start: 01-26-2023 Tobacco use and exposure Smokeless tobacco non-user [facility] [employer] Start: 09-01-2019 End: 07-12-2023 Tobacco smoking status AZIS Ex-smoker (finding) [facility] Start: 1960 Sex Assigned At Male F [facility] Start: 1960 Sex Assigned At Not on file B ON [employer] Tobacco smoking status Never [facility] [place] Vital Signs Date Time Vital Sign Value Performing Clinician Facility 09-19-2023 13:25-0400 Body height 180.34 cm MD Marbin Ceballos Work Phone: 7(958)738-820736 [place] [address] 09-19-2023 13:25-0400 Body mass index (BMI) [Ratio] 37 kg/m2 MD Marbin Ceballos Work Phone: [facility] 09-19-2023 13:25-0400 Body temperature 98.1 [degF] MD Marbin Ceballos Work Phone: [facility] 09-19-2023 13:25-0400 Body weight 120.65 kg MD Marbin Ceballos Work Phone: 3(226)[phone] [place] [address] 09-19-2023 13:25-0400 Diastolic blood pressure 90 mm[Hg] MD Marbin Ceballos Work Phone: 9(940)199-415489 [place] [address] 09-19-2023 13:25-0400 Heart rate 84 /min MD Marbin Ceballos Work Phone: 8(763)[phone] [place] [address] 09-19-2023 13:25-0400 Respiratory rate 20 /min MD Marbin Ceballos Work Phone: 1(380)[phone] [address] 09-19-2023 13:25-0400 SaO2% (BldA) [Mass fraction] 98 % MD Marbin Ceballos Work Phone: [facility] 09-19-2023 13:25-0400 Systolic blood pressure 132 mm[Hg] MD Marbin Ceballos Work Phone: [facility] 08-02-2023 13:54-0400 Blood Pressure Location Marbin CEBALLOS [facility] [place] 08-02-2023 13:54-0400 Diastolic blood pressure 82 mm[Hg] Marbin CEBALLOS [facility] [place] 08-02-2023 13:54-0400 Heart rate 72 /min Marbin CEBALLOS [facility] [place] 08-02-2023 13:54-0400 Respiratory rate 16 /min Marbin CEBALLOS [facility] [place] 08-02-2023 13:54-0400 Systolic blood pressure 122 mm[Hg] Marbin NILL [facility] [place] 07-12-2023 13:39-0400 Blood Pressure Location Marbin NILL [facility] [place] 07-12-2023 13:39-0400 Diastolic blood pressure 88 mm[Hg] Marbin NILL [facility] [place] 07-12-2023 13:39-0400 Heart rate 72 /min Marbin NILL [facility] [place] 07-12-2023 13:39-0400 Respiratory rate 16 /min Marbin NILL [facility] [place] 07-12-2023 13:39-0400 Systolic blood pressure 126 mm[Hg] Marbin NILL [facility] [place] 03-22-2023 13:15-0500 Body height 180.34 cm Weslyterrance Taylor Other [employer] Other 03-22-2023 13:15-0500 Body mass index (BMI) [Ratio] 36.51 kg/m2 Weslyterrance Taylor Other [employer] Other 03-22-2023 13:15-0500 Body temperature 98.1 [degF] Weslyterrance Taylor Other [employer] Other 03-22-2023 13:15-0500 Body weight 118.75 kg Weslyterrance Taylor Other [employer] Other 03-22-2023 13:15-0500 Diastolic blood pressure 80 mm[Hg] Weslyterrance Taylor Other [employer] Other 03-22-2023 13:15-0500 Respiratory rate 20 /min Chan Brandon Other [employer] Other 03-22-2023 13:15-0500 SaO2% (BldA) [Mass fraction] 98 % Chan Taylor Other [employer] Other 03-22-2023 13:15-0500 Systolic blood pressure 140 mm[Hg] Chan Talyor Other [employer] Other 01-27-2023 08:32-0400 Body height 180.34 cm Nirav P House Work Phone: [facility] Work Phone: 01-27-2023 08:32-0400 Body mass index (BMI) [Ratio] 35.71 kg/m2 Nirav P House Work Phone: [facility] Work Phone: 01-27-2023 08:32-0400 Body surface area Derived from formula 2.34 m2 Nirav P House Work Phone: [facility] Work Phone: 01-27-2023 08:32-0400 Body weight 116.12 kg Nirav P House Work Phone: [facility] Work Phone: 01-27-2023 08:32-0400 Diastolic blood pressure 78 mm[Hg] Nirav P House Work Phone: [facility] Work Phone: 01-27-2023 08:32-0400 Heart rate 80 /min Nirav P House Work Phone: [facility] Work Phone: 01-27-2023 08:32-0400 Systolic blood pressure 110 mm[Hg] Nirav P House Work Phone: [facility] Work Phone: 01-26-2023 07:31-0400 Body temperature 98.2 [degF] Corie Bonilla MD Work Phone: [facility] 01-26-2023 07:31-0400 Diastolic blood pressure 82 mm[Hg] Corie Bonilla MD Work Phone: [facility] [employer] 01-26-2023 07:31-0400 Heart rate 74 /min Corie Bonilla MD Work Phone: [facility] [employer] 01-26-2023 07:31-0400 Respiratory rate 20 /min Corie Bonilla MD Work Phone: [facility] [employer] 01-26-2023 07:31-0400 SaO2% (BldA) [Mass fraction] 97 % Corie Bonilla MD Work Phone: [facility] [employer] 01-26-2023 07:31-0400 Systolic blood pressure 127 mm[Hg] Corie Bonilla MD Work Phone: [facility] [employer] 04-15-2022 15:07-0500 Body height 179.07 cm Nirav P [employer] Work Phone: [facility] 250 DO Work Phone: 04-15-2022 15:07-0500 Body mass index (BMI) [Ratio] 37.8 kg/m2 Nirav P [employer] Work Phone: [facility] 250 DO Work Phone: 04-15-2022 15:07-0500 Body surface area Derived from formula 2.37 m2 Nirav P [employer] Work Phone: [facility] DO Work Phone: 04-15-2022 15:07-0500 Body weight 121.2 kg Nirav P House Work Phone: [facility] DO Work Phone: 04-15-2022 15:07-0500 Diastolic blood pressure 80 mm[Hg] Nirav P House Work Phone: [facility] DO Work Phone: 04-15-2022 15:07-0500 Heart rate 96 /min Nirav P House Work Phone: [facility] DO Work Phone: 04-15-2022 15:07-0500 Systolic blood pressure 110 mm[Hg] Nirav P House Work Phone: [facility] DO Work Phone: 04-16-2021 15:40-0500 Body height 180.34 cm Gabriel M Hoy Work Phone: [facility] [address] DO Work Phone: 04-16-2021 15:40-0500 Body mass index (BMI) [Ratio] 37.94 kg/m2 Gabriel M Hoy Work Phone: [facility] DO Work Phone: 04-16-2021 15:40-0500 Body surface area Derived from formula 2.4 m2 Gabriel M Hoy Work Phone: [facility] DO Work Phone: 04-16-2021 15:40-0500 Body weight 123.38 kg Gabriel M Hoy Work Phone: [facility] DO Work Phone: 04-16-2021 15:40-0500 Diastolic blood pressure 84 mm[Hg] Gabriel M Hoy Work Phone: [facility] DO Work Phone: 04-16-2021 15:40-0500 Heart rate 90 /min Gabriel M Hoy Work Phone: [facility] DO Work Phone: 04-16-2021 15:40-0500 Systolic blood pressure 128 mm[Hg] Gabriel M Hoy Work Phone: [facility] DO Work Phone: Functional Status Date Assessment Result Facility 04-02-2024 Functional Status N/A General [facility] 07-12-2023 Functional Status N/A General [facility] k[facility] Christie 01-19-2023 Functional Status N/A General Chavis korey Christie Clinical Notes 02-25-2016 to 07-12-2023 Note Date [...] Tonsillectomy. Medications albuter (more content not included)... [facility] Comment on above: Result Comment: Elec tronically Signed By: LIN FENTON, Marbin Chaudhari\Date and Time Signed: 07/12/23 20:10 EDT 07-12-2023 Evaluation + Plan note Diagnostic Tests PendingCreatinine 07/12/23 General Surgery [facility] 03-22-2023 Evaluation note Encounter Date Diagnosis Assessment Notes Mar, Asthma with COPD (ICD-10 - J44.9) please arrange for dupixent if qualified [employer] Other 11-21-2023 Evaluation note* Encounter Date Diagnosis Assessment Notes Treatment Notes Treatment Clinical Notes Mar, Asthma with COPD (ICD-10 - J44.9) please arrange for dupixent if qualified Mar, Severe persistent asthma without complication (ICD-10 - J45.50) [employer] Other 09-27-2023 History of Present illness Narrative* Jennifer Melgar - 01/26/2023 5:38 PM EDT CLINICAL PHARMACY NOTE: MEDS TO BEDS Total # of Prescriptions Filled: 1 The following medications were delivered to the patient: cephalexin Additional Documentation: Pt signed form- filed sheet * Sariah Nichols MD - 01/26/2023 12:10 PM EDT Images from the original note were not included. [facility] Office: [phone] Rajat Worley DO, Nirav Leiva DO, Siva [...] Jaylon Galaviz MD, Chadd Mcmanus MD,Cass Granado, BOXING INSPECTOR, Billie Hilliard, BOXING INSPECTOR,, Abraham Foote, BOXING INSPECTOR, Radha Arredondo, DNP, Keke Spencer, BOXING INSPECTOR, Ni Kowalski, BOXING INSPECTOR, Jeana Carrizales, BOXING INSPECTOR, Milly Harrell, BOXING INSPECTOR, Arleen Panchal, BOXING INSPECTOR, Elvira Godwin, BOXING INSPECTOR, Edelmira Catalan, ETL ANALYST DEVELOPER, Maribeth Oswald, BOXING INSPECTOR, Lisa Pacheco, BOXING INSPECTOR [facility] IN-PATIENT SERVICE [facility] Progress Note 01/26/2023 1:43 PM Name: Abraham Harry Acct: [id number] Room: 0345/0345-02 Day: 1 Admit Date: 01/25/2023 6:20 PM [...] hypertension, hypercholesterolemia, questionable CAD (patient follows with oil drilling engineer because of sudden cardiac of his father at the age of 44 due to cardiac aneurysm and he said that oil drilling engineer mentioned to him that he has some changes at the bottom of his heart that need to be monitored ), stroke 2020 on clopidogrel not on aspirin, cholecystectomy and bowel resection for acute necrosis done by Dr. Ceballos on 01/10. Patient presented to [place] ED for acute onset abdominal pain that [...] didshow nephrolithiasis. Discussed with GI team at [facility], transferring patient for possible CBD stone [...] , PHART , PH , POCPCO2 , CUT1WJA , PCO2 , POCPO2 , PO2ART , PO2 , POCHCO3 , GVJ4QDM , HCO3 , NBEA , PBEA , BEART , BE , THGBART , THB , [id number] , [id number] , [id number] , O2SAT , FIO2 Lab Results Component [...] of bowel resection 01/25/2023 Yes Plan: Abdominal zqzi-yjekcbij-wepokdjew concern for nephrolithiasis -patient thinks that he [...] MD 01/26/2023 1:43 PM [facility] Dis[facility]* Discharge Instructions* Sariah Nichols MD - 01/26/2023 1:41 PM EDT Do not take atorvastatin/Lipitor for 1 week. Follow-up with PCP Check BP before taking meds [facility] note* Encounter Date Diagnosis Assessment Notes Treatment Notes Treatment Clinical Notes Oct, Asthma with COPD (ICD-10 - J44.9) [employer] Other 03-30-2022 Evaluation note* Encounter Date Diagnosis Assessment Notes Treatment Notes Treatment Clinical Notes Jun, Asthma with COPD (ICD-10 - J44.9) Jun, Coronary artery disease involving levelock heart, unspecified vessel or lesion type, unspecified whether angina present (ICD-10 - I25.10) Jun, Orthostatic lightheadedness (ICD-10 - R42) [employer] Other 07-01-2017 History general Narrative - Reported* Type Description Date Medical History COPD Medical History heart disease Medical History congestive heart failure Medical History asthma Surgical History rotator cuff tear repair 10/2016 Surgical History Foot Surgery 2015 Surgical History hernia repair 2013 Hospitalization History See Above [employer] Other 10-26-2016 History of Present illness Narrative* Patient returns in follow-up of problems as noted. In the interim he has begun to develop anginal chest pain. He describes retrosternal pain brought about by aerobic activity and relieved with rest. Review of chart demonstrates that he had a coronary angiogram 7 years ago in [facility] where he had moderate disease treated medically. [...] proceed with stress testing and follow-up thereafter. [facility] Work Phone: Evaluation + Plan note No data available for this section General [facility] [place] Evaluation + Plan note Future Appointments Appointment Date:10/05/2023 04:00:00 PM Scheduled Provider:Marbin CEBALLOS MD Location:[facility] Appointment Type: Post Op 15 [facility] Surgery [place] Evaluation noteNo InformationNort [employer] Other Evaluation noteNo assessment information available [facility] Work Phone: Evaluation note* Diagnosis Abdominal pain- [...] biliary tract documented in this encounter [facility]* Diagnosis Onset Date Resolution Status Asthma, severe persistent ac rito [facility] Work Phone: History of Present illness Narrative* [...] diet lifestyle modification exercise and weight loss. -[facility] DO Work Phone: History of Present illness [...] before without change and follow-up next year. -[facility] DO Work Phone: Hospital Discharge instructions No data available for this section General [facility] [place] Progress note No data available for this section [facility] [place] Summary Purpose Family History No Family History [...] Condition Age at Onset Recorded Date/T soco brother Hypertension Unknown Heart disease Unknown Diabetes mellitus Unknown father Unknown Hypertension Unknown grandparent Heart disease Unknown Not Specified Hypertension Unknown Advance Directives No Advanced Directives Records Found [...] J44.9 Chief Complaint J44.9 redraw per Michelle Chief Complaint Unknown 6 mo f/u Asthma w COPD, Seasonal Allergies, CAD Reason for Visit Asthma, severe persi stent Additional Source Comments (unrecognized sect ion and content) No Status Records FoundNo Status Records FoundNo Status Records FoundNo Status Records FoundNo Status Records FoundNo Status Records FoundNo Status Records FoundNo Status Records FoundNo Status Records FoundNo Status Records Found INFORMATION SOURCE (unrecogn ized section and content) DATE CREATED AUTHOR 10/21/2017 [facility] DATE CREATED AUTHOR AUTHOR'S ORGANIZ ATION 04/08/2020 [facility] DATE CREATED AUTHOR AUTHOR'S ORGANIZ ATION 02/22/2022 [facility] DATE CREATED AUTHOR AUTHOR'S ORGANIZ ATION 01/08/2023 [facility] DATE CREATED AUTHOR AUTHOR'S ORGANIZ ATION 02/03/2023 [facility] DATE CREATED AUTHOR AUTHOR'S ORGANIZ ATION 02/03/2023 [employer] DATE CREATED AUTHOR AUTHOR'S ORGANIZ ATION 02/11/2023 [facility] DATE CREATED AUTHOR AUTHOR'S ORGANIZ ATION 09/17/2023 [facility] DATE CREATED AUTHOR AUTHOR'S ORGANIZ ATION 10/07/2023 Merino Ponce [facility] DATE CREATED AUTHOR AUTHOR'S ORGANIZ ATION 10/11/2023 [facility] REASON FOR VISIT (unrecogniz [...] Active Chan Taylor MD Attending Provider Active Team Status: Inactive Member Role Status Dates Marbin Ceballos MD FACS Attending Provider Active Start: September 14, 2023 End: September 14, 2023 Team Status: Inactive Member Role Status Dates Jacqueline Anthony APRN ACNP-BC Attending Provider Active Start: September 19, 2023 End: September 19, 2023 Nirav Cain DO Primary Care Provider Active Start: September 19, 2023 End: September 19, 2023 DME Active Start: August End: September 19, 2023 Goals (unrecognized section and content) Goals may [...] Until Discontinued 1550 (Not Given - Provider: iLsa Butler, LAITH - Reason: Patient/family refused) enoxaparin (LOVENOX) injection [...] available) 101 (Not Given - Provider: Lisa Butler, LAITH - Reason: Medication not available) famotidine (PEPCID) 20 mg in sodium chloride (PF) 0.9 % 10 mL injection 20 mg, IntraVENous, 2 TIMES DAILY, First dose on Tue01/25/23 at 2100, Until Discontinued, IV Push over minimum of 2 minutes - Dilute with 10 mL NS 2099 (Not Given - Provider: Elvira Su RN - Reason: Patient/family refused) 101 (Not Given - Provider: Lisa Butler, RN - Reason: Patient/family refused)2099 (Due) HYDROmorphone [...] RN) 0946 (Not Given - Provider: Lisa Butler RN - Reason: IV Fluid Infusing)2100 (Due) Continuous [...] specifically ordered. 1900 (Given - Provider: Ruby Harper RN)2240 (Given - Provider: Elvira Su RN) ondansetron [...] BE BASED ON THE PRIMARY CLINICAL RECORDS. [employer] provides no warranty or guarantee of the accuracy or completeness of information in this document.
== END 2023-10-17 08:22 | disposition home or self-care (01) ==
LOC: LAB 08:21
PROVIDERS: PCP Family Medicine
DX: J44.9 Chronic obstructive pulmonary disease, unspecified (principal)
CPT/HCPCS: 71046

== ENCOUNTER 2023-10-29 09:24 | Outpatient (OUT) | payer OTHER, MEDICARE, SELFPAY ==
--- OUTSIDE RECORDS SUMMARY | 2023-10-29 09:27 | XMS_ITS ---
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 Name Role Phone HAMPOLE, SUKHWINDER Unavailable Unavailable RYLAN HOGAN Unavailable Unavailable HAMPOLE, SUKHWINDER Unavailable Unavailable CHARENTON SR, NIRAV MARIA Unavailable Unavai lable HAMPOLE, SUKHWINDER Unavailable Unavailable HOUSE SR, NIRAV MARIA Unavailable Unavai lable Unavailable Unavailable Gabriel Munoz Unavailable Chan Taylor Unavailable ANT, DR MCCLELLAND Primary Care Unavailable BRITTNEY, DR LORETTA Carrillo Admitting Unavailable BRITTNEY, DR LORETTA Carrillo Attending Unavailable JACOBY LESTER Consulting Unavailable ARAMISEDIN TANG Consulting Unavailable ANT, DR MCCLELLAND Admitting Unavailable HOUSE, DR MCCLELLAND Attending Unavailable CHARENTON, DR MCCLELLAND Primary Care Unavailable HOUSE, DR MCCLELLAND Admitting Unavailable HOUSE, DR MCCLELLAND Attending Unavailable HOUSE, DR MCCLELLAND Primary Care Unavailable HOUSE, DR MCCLELLAND Consulting Unavailable Nirav Cain Unavailable DO Nirav Cain Primary Care Provider MD Chan Taylor Attending Provider [phone] Dr. Nirav Cain Primary Care Unava REY Garrett Attending Unavailable Nirav Cain Primary Care Physician [...] Dinorava ilable Keven WHITFIELD, Dr. Rey Stevens Referring Unavailable House, Dr. Nirav Maria Primary Care Unava ilmargi Baca II, Dr. Rey Stevens Attending Unavailable NICHOLS, SARIAH Attending Unavailable JAMIA DEL VALLE Consulting Unavailable PAYAMADOU Referring Unavailable MAGDALENA, SARIAH Admitting Unavailable DO Nirav Cain Primary Care Provider [phone] MD Chan Taylor Attending Provider [phone] NIRAV CAIN Primary Care Physician Brandon, Weslyal Admitting Unavailable Chaban, Chan Attending Unavailable House, Nirav Primary Care Unavailable Chaban, Weslyal Admitting Unavailable Chaban, Chan Attending Unavailable House, Nirav Primary Care Unavailable Chaban, Chan Attending Unavailable House, Nirav Primary Care Unavailable Chaban, Chan Admitting Unavailable Nill, Marbin R Admitting Unavailable Nill, Marbin Carrillo Attending Unavailable Nill, MD Marbin Carrillo Attending Provider [phone] NIRAV CAIN Referring Unavailable NILL, Marbin Carrillo Attending Unavailable NILL, Marbin Carrillo Attending Unavailable NILL, Marbin Carrillo Attending Unavailable NILL, Marbin Carrillo Attending Unavailable NILL, Marbin Carrillo Attending Unavailable NILL, Marbin Carrillo Attending Unavailable NILL, Marbin Carrillo Attending Unavailable HOUSE, NIRAV Mayers Attending Unavailable HOUSE, NIRAV P Primary Care Unavailable HOUSE, NIRAV P Primary Care Unavailable Abraham Holder MD Attending Unavailable HOUSE, NIRAV Mayers Primary Care Unavailable Gallo FENTON, Abraham Case Attending Unavailable HOUSE, NIRAV Mayers Primary Care Unavailable Abraham Holder MD Attending Unavailable HOUSE, NIRAV Mayers Attending Unavailable HOUSE, NIRAV P Primary Care Unavailable Allergies Allergy Classification Reported Allergen(s) Allergy Type Date of Onset Reaction(s) Facility (6 sources) Adhesive Tape; Translations: [Tape] Drug allergy irritation [facility] (2 sources) No Known Medication Allergies; Translations: [No Known Medication Allergies] Propensity to adverse reactions (disorder) [facility] Repository Encounters Encounter Date Encounter Type Care Provider Facility Start: 10-10-2023 End: 10-10-2023 ambulatory NIRAV CAIN Facility:[facility] Start: 10-05-2023 End: 10-05-2023 ambulatory Marbin CEBALLOS Facility: [facility] Start: 10-05-2023 End: 10-05-2023 Patient encounter procedure Marbin CEBALLOS [facility] General Surgery [facility] Start: 09-21-2023 End: 09-21-2023 ambulatory Marbin R NILL Facility: [place] Start: 09-21-2023 End: 09-21-2023 Patient encounter procedure Marbin R NILL [facility] Start: 09-19-2023 End: 09-19-2023 ambulatory MD Marbin Ceballos Work Phone: [facility] Work Phone: Start: 09-19-2023 End: 09-19-2023 Patient encounter procedure MD Marbin Ceballos Work Phone: [facility] Work Phone: Start: 09-14-2023 End: 09-14-2023 ambulatory Marbin R Nill Facility:[facility] Start: 09-14-2023 End: 09-14-2023 Departed Referred MD Marbin Ceballos Work Phone: [facility] Start: 09-14-2023 End: 09-14-2023 ambulatory Marbin R NILL Facility:CD:[id number] Start: 08-02-2023 End: 08-02-2023 ambulatory Marbin R NILL Facility: [facility] Start: 08-02-2023 End: 08-02-2023 Patient encounter procedure Marbin R NILL General Surgery Nill/Said [place] Start: 07-12-2023 End: 07-12-2023 ambulatory NIRAV P HOUSE Facility: [facility] Start: 07-12-2023 End: 07-12-2023 Patient encounter procedure Marbin R NILL General Surgery Nill/Said [place] Start: 06-20-2023 End: 06-20-2023 ambulatory NIRAV P HOUSE Facility:[facility] Start: 04-20-2023 End: 04-20-2023 ambulatory NIRAV P HOUSE Facility:[facility] Start: 04-05-2023 End: 04-05-2023 ambulatory Kamal Chaban Facility:[facility] Start: 04-05-2023 End: 04-05-2023 ambulatory DO Nirav House Work Phone: [facility] Work Phone: Start: 04-05-2023 End: 04-05-2023 Patient encounter procedure DO Nirav House Work Phone: [facility] [place] Work Phone: Start: 04-04-2023 End: 04-04-2023 ambulatory Kamterrance Chaban Other [employer] Other Start: 04-04-2023 Telephone encounter Chan Taylor [facility] Start: 03-22-2023 Office outpatient vi sit 25 minutes Kamterrance Taylor [facility] Start: 03-22-2023 End: 03-22-2023 ambulatory DO Nirav House Work Phone: [facility] Work Phone: Start: 03-22-2023 End: 03-22-2023 Patient encounter procedure DO Nirav Ant Work Phone: [facility] [place] Work Phone: Start: 02-15-2023 End: 02-15-2023 ambulatory NIRAV P HOUSE Facility:[facility] Start: 01-27-[address] Rey Baca II Facility: Start: 01-27-2023 End: 01-27-2023 ambulatory NIRAV P HOUSE Facility:[facility] Start: 01-25-2023 End: 01-26-2023 Evaluation and management of inpatient SARIAH NICHOLS [facility] Start: 01-25-2023 End: 01-26-2023 Evaluation and management of inpatient Corie Bonilla MD Work Phone: [facility] Start: 01-19-2023 End: 01-19-2023 ambulatory Marbin CEBALLOS Facility:[facility] Start: 01-19-2023 End: 01-19-2023 Patient encounter procedure Marbin Carrillo NILL General Surgery Nill/Said [facility] Start: 01-11-2023 ambulatory NIRAV CAIN Facility: [facility] Start: 01-09-2023 End: 01-10-2023 ambulatory Marbin CEBALLOS Facility::[id number] Start: 12-21-2022 Patient encounter procedure Nirav Mayers House Work Phone: [facility] 250 DO Work Phone: Start: 12-21-[address] Nirav sepulveda [place] Facility:[id number] Start: 11-23-2022 Office outpatient vi sit 25 minutes Nirav P House Work Phone: [facility] Work Phone: Start: 11-23-[address] Rey Baca II Facility: Start: 09-30-2022 End: 09-30-2022 ambulatory Chan Taylor Facility:[facility] Start: 09-30-2022 End: 09-30-2022 ambulatory DO Nirav Cain Work Phone: [facility] Work Phone: Start: 09-30-2022 End: 09-30-2022 Patient encounter procedure DO Nirav Cain Work Phone: [facility] Work Phone: Start: 04-15-2022 Office outpatient vi sit 25 minutes Nirav P House Work Phone: [facility] 250 DO Work Phone: Start: 04-15-[address] Rey Baca II Facility: Start: 04-01-2022 End: 04-01-2022 ambulatory Chan Taylor Other [employer] Other Start: 04-01-2022 Telephone encounter Kamal Chaban [facility] Start: 03-02-2022 Rx Renewal Gabriel Munoz Work Phone: [facility] 250 DO Work Phone: Start: 02-22-2022 Encounter for genera l adult medical examination without abnormal findings DR NIRAV CAIN [facility] Start: 02-18-2022 End: 02-19-[address] NIRAV CAIN Facility:[facility] Start: 02-18-2022 End: 02-19-2022 Encounter for general adult medical examination without abnormal findings DR NIRAV CAIN Facility:[facility] Start: 11-05-2021 End: 11-05-2021 ambulatory Kamal Chaban Other [employer] Other Start: 11-05-2021 Telephone encounter Kamal Chaban [facility] Start: 10-23-2021 End: 10-23-2021 ambulatory Kamal Chaban Other [employer] Other Start: 10-23-2021 Telephone encounter Kamal Chaban [facility] Start: 07-29-2021 End: 07-29-2021 ambulatory Kamal Chaban Other [employer] Other Start: 07-29-2021 Office outpatient vi sit 25 minutes Kamal Chaban [facility] Start: 04-23-2021 End: 04-23-[address] NIRAV CAIN Facility:[facility] Start: 04-16-2021 Office outpatient vi sit 25 minutes Gabriel Munoz Work Phone: [facility] 250 DO Work Phone: Start: 03-15-2021 Rx Renewal Rey alanis MD Work Phone: [facility] 250 DO Work Phone: Start: 03-04-[address] NIRAV CAIN [facility] ty:H1 Start: 06-17-2017 End: 06-24-2017 Ambulatory SUKHWINDER [facility] Start: 05-31-2017 End: 06-06-2017 Ambulatory [facility] Start: 11-15-2016 End: 11-18-2016 Ambulatory [facility] Immunizations Immunization Date Immunization Notes Care Provider Flakita reynaga 09-19-2020 Moderna COVID-19 Vaccine 100 MCG/0.5ML Intramuscular Suspension Gabriel Munoz Work Phone: General Surgery [place] 08-22-2020 Moderna COVID-19 Vaccine 100 MCG/0.5ML Intramuscular Suspension Gabriel Munoz Work Phone: General Surgery [place] 01-30-2019 pneumococcal polysaccharide vaccine, 23 valent Gabriel Riberay Work Phone: [facility] 250 DO Work Phone: NEGATED: Highlighted row has not occurred!07-12-2023 influenza virus vaccine, unspecified formulation Marbin CEBALLOS General Surgery [place] Medications Current Medications Medication Drug Class(es) Dates [...] as directed Sublingual Active polyethylene glycol 3350 44771 mg powder for oral solution (1 source) [...] inhalation once daily in the morning Tiotropium [place] (Spiriva With Handihaler) 18 mcg Capsule, W/Inhalation [...] Payer Category Payer Private Health Insurance [id number] 2020 Medicare [id number] 1960 Unknown [id number] 2.16.840.1.706844.3.579.2.593 1960 Unknown [id number] 2.16.840.1.720325.3.579.2.593 1960 Unknown [id number] 2.16.840.1.817625.3.579.2.593 1960 Unknown [id number] 2.16.840.1.138379.3.579.2.1068 1960 Unknown [id number] 2.16.840.1.207683.3.579.2.356 1960 Unknown [id number] 2.16.840.1.679431.3.579.2.356 1960 Unknown [id number] 2.16.840.1.621888.3.579.2.356 1960 Unknown [id number] 2.16.840.1.171052.3.579.2.175 1960 Unknown [id number] 2.16.840.1.814622.3.579.2.727 1960 Unknown [id number] 2.16.840.1.182156.3.579.2.727 1960 Unknown [id number] 2.16.840.1.832247.3.579.2.727 1962 Unknown [id number] 2.16.840.1.369817.3.579.2.727 1960 Unknown [id number] 2.16.840.1.999325.3.579.2.72 1960 Unknown [id number] 2.16.840.1.268563.3.579.2.72 1960 Unknown [id number] 2.16.840.1.151646.3.579.2. 1960 Unknown [id number] 2.16.840.1.309952.3.579.2.8 1962 Unknown [id number] 2.16.840.1.775053.3.579.2.8 1960 Unknown [id number] 2.16.840.1.806569.3.579.2.8 1962 Unknown [id number] 2.16.840.1.674404.3.579.2.8 1960 Unknown [id number] 2.16.840.1.324577.3.579.2.718 1959 Self-pay 1959 Unknown [id number] 2.16. 840.1.064199.19 Unknown Unknown [id number] 2.16.840.1.725831.3.579.2.531 Unknown [id number] 2.16.840.1.125472.3.579.2.531 Unknown [id number] 2.16.840.1.090922.3.579.2.531 Unknown [id number] 2.16.840.1.026813.3.579.2.531 Worker's Compensation [facility] [id number] Plan of Treatment Date Care Activity Detail Author Start: 03-22-2023 [facility] Start: 01-27-2023 End: 01-27-2023 Admission to same day surgery center 01/27/2023 11:00 AM EDT - 01/27/2023 12:30 PM EDT Surgery [facility] [address] [place] [address] Rodolfo Hernandez MD [address] [facility] [facility] [address] [place] [address] ERCP ENDOSCOPIC RETROGRADE CHOLANGIOPANCREATOGRAPHY, STENT PLACEMENT (C-ARM) [facility] Comment on above: ERCP ENDOSCOPIC RETROGRADE CHOLANGIOPANC REATOGRAPHY, STENT PLACEMENT (C-ARM) Start: 01-27-2023 End: 01-27-2023 Ercp dx collection specimen brushing/washing ERCP ENDOSCOPIC RETROGRADE CHOLANGIOPANCREATOGRAPHY Bile duct leak 01/27/2023 11:00 AM EDT [facility] Start: 01-27-2023 FUV, Provider: Rey Baca, Status: Pen, Time: 8:40 AM FUV, Provider: Rey Baca, Status: Pen, Time: 8:40 AM [facility] 250 DO Work Phone: Start: 11-30-2022 Influenza vaccination Flu vaccine (#1) [facility] Start: 11-23-2022 FUV, Provider: Rey Baca, Status: Pen, Time: 9:50 AM FUV, Provider: Rey Baca, Status: Pen, Time: 9:50 AM [facility] 250 DO Work Phone: Start: 04-15-2022 FUV, Provider: Rey Baca, Status: Pen, Time: 3:30 PM FUV, Provider: Rey Baca, Status: Pen, Time: 3:30 PM [facility] 250 DO Work Phone: Start: 01-13-2022 FUV, Provider: Rey Baca, Status: Pen, Time: 3:30 PM FUV, Provider: Rey Baca, Status: Pen, [facility]: 3:[facility] Work Phone: Start: 04-02-2021 FUV, Provider: Rey Baca, Status: Pen, Time: 8:50 AM FUV, Provider: Rey Baca, Status: Pen, Time: 8:50 AM [facility] Work Phone: Start: 11-14-2020 COVID-19 Vaccine (3 - Moderna series) COVID-19 Vaccine (3 - Moderna series) [facility] Start: 2012 Shingles vaccine (1 of 2) Shingles vaccine (1 of 2) [facility] Start: 10-15-2007 Screening for malignant neoplasm of colon [facility] Start: 1981 DTaP/Tdap/Td vaccine (1 - Tdap) DTaP/Tdap/Td vaccine (1 - Tdap) [facility] Start: 1980 Hepatitis C screening Hepatitis C screen [facility] Start: 1977 HIV screening HIV screen [facility] Start: 1974 Depression Screen Depression Screen [facility] Start: 1972 Lipid panel Lipids [facility] Alternaria alternata IgE Ab [Units/volume] in Serum [facility] [place] house dust mite IgE Ab [Units/volume] in [facility] [place] Cope Ig E Ab [Units/volume] in [facility] [place] Cope Ig E Ab [Units/volume] in [facility] Aspergillus fumigatu s IgE Ab [Units/volume] in [facility] Bermuda grass IgE Ab [Units/volume] in [facility] Boxelder IgE Ab [Units/volume] in [facility] Cat dander IgG Ab [Units/volume] in [facility] End: 01-27-2023 CBC W Auto Differential panel - Blood CBC with Auto Differential Lab Routine Daily for 3 Days starting 01/25/2023 until 01/27/2023, 2 completed [facility] Comment on above: Daily for 3 Days starting 01/25/2023 unt il 01/27/2023, 2 completed Cladosporium herbaru m IgE Ab [Units/volume] in Serum [facility] Cockroach IgE Ab [Units/volume] in Serum [facility] Common Ragweed IgE A b [Units/volume] in [facility] End: 01-27-2023 Comprehensive metabolic 2000 panel - Serum or Plasma Comprehensive Metabolic Panel Lab Routine Daily for 3 Days starting 01/25/2023 until 01/27/2023, 2 completed [facility] Comment on above: Daily for 3 Days starting 01/25/2023 unt il 01/27/2023, 2 completed Bandera IgE Ab [Units/volume] in [facility] Culture, Blood 1 [facility] Dog dander IgE Ab [Units/volume] in [facility] house dust mite IgE Ab [Units/volume] in [facility] IgE [Units/volume] i n Serum or Plasma [facility] Intermittent pulse oximetry Pulse Oximetry Spot Check Respiratory Care Routine As Needed until discontinued starting 01/25/2023 [facility] Comment on above: As Needed until discontinued starting Mountain Juniper IgE Ab [Units/volume] in [facility] Mouse urine proteins IgE Ab [Units/volume] in [facility] Oxygen therapy [Minimum Data Set] Initiate Oxygen Therapy Protocol Respiratory Care Routine As Needed until discontinued starting 01/25/2023 [facility] Comment on above: As Needed until discontinued starting Pecan or Jay Em Pio e IgE Ab [Units/volume] in Serum [facility] Penicillium notatum IgE Ab [Units/volume] in [facility] Rough Pigweed IgE Ab [Units/volume] in [facility] Saltwort IgE Ab [Units/volume] in [facility] Sheep [place] IgE Ab [Units/volume] in [facility] Sheep [place] IgE Ab [Units/volume] in Serum [facility] Silver Birch IgE Ab [Units/volume] in Serum [facility] Silver Birch IgE Ab [Units/volume] in Serum [facility] Benjy IgE Ab [Units/volume] in Serum [facility] Mcclellan IgE Ab [Units/volume] in Serum [facility] White Konstantin IgE Ab [Units/volume] in Serum [facility] White Konstantin IgE Ab [Units/volume] in Serum [facility] White Elm IgG Ab [Units/volume] in Serum [facility] White mulberry IgE A b [Units/volume] in Serum [facility] White mulberry IgE A b [Units/volume] in Serum [facility] Paron IgE Ab [Units/volume] in Serum [facility] Problems Active Problems Problem Classification Problem [...] disease (20 sources) Atherosclerotic heart disease of [place] coronary artery without angina pectoris; Translations: [Coronary [...] 11-15-2016 Episodic Other aftercare (1 source) Other [facility] (current) drug therapy; Translations: [OTH NURSES DIRECTOR CURRENT DRUG THERAPY] Onset: 04-28-2021 Episodic Other [...] above: Performed By: #### P SAD #### [facility] [address] [place] [address] Dr. Demetria Jain Start: 09-17-2020 Colonoscopy Marbin YAO Comment on above: Colon polyp Start: 11-23-2016 Right shoulder arthroscopy with extensive glenohumeral debridement, subacromial decompression, mini-open rotator cuff repair Marbin FERNÁNDEZL Start: 07-11-2015 Rt/Lt Heart Catheterization Marbin FERNÁNDEZL Cardiac catheterization Gene las Stacey Munoz Work Phone: Colonoscopy Marbin FERNÁNDEZL Excision of basal ce ll carcinoma Marbin FERNÁNDEZL Comment on above: nasolabial fold Hernia repair Gabriel M Tammy Work Phone: Laparoscopy Gabriel Munoz Work Phone: Operation on skin Nirav Cain Work Phone: Operative procedure on foot Gabriel Stacey Riberay Work Phone: Repair of right ingu inal hernia Marbin FERNÁNDEZL Small intestine excision Jero hamandy CEBALLOS Tonsillectomy Gabriel M Hoy Work Phone: Tonsillectomy Marbin NILL Total colonoscopy Gabriel Ibarra Hoy Work Phone: Comment on above: august [...] choosing us for your care. Dee Merino [facility] General Surgery Office/Clini c Noteon 10-05-2023 General [...] SARS-CoV-2 (COVID-19) mRNA-1273 vaccine 08/22/2020 Recorded Normal [facility] Comment on above: Result Comment: Elec tronically Signed By: LIN FENTON, Marbin Carrillo\.br\Date and Time Signed: 10/05/23 17:20 EDT Pathology Noteon 09-29-2023 Pathology Note [id number]#1.00TIFF Normal [facility] Ambulatory Visit Summaryon 0 09-21-2023 Ambulatory Visit Summary ABRAHAM HARRY :1960 Visit Date:09/21/2023 Ambulatory Visit Instructions Your Care Team Attending Physician - Marbin CEBALLOS MD Primary Care Physician - CHARENTON NIRAV LADD This Is Your Medications List albuterol (albuterol [...] choosing us for your care. Dee Merino [facility] General Surgery Office/Clini c Noteon 09-21-2023 General [...] (COVID-19) mRNA-1273 vaccine 08/22/2020 Recorded Normal Merino [facility] Comment on above: Result Comment: Elec tronically Signed By: LIN FENTON, Marbin Chaudhari\Date and Time Signed: 09/21/23 16:25 EDT Consultation/Specialist Note on 09-19-2023 Consultation/Specia list Note [id number][facility] 09-19-2023 Outside Records [id number]#[facility] Operative Reporton Operative Report [id number]#1.00TIFF Dee [facility] Mihir 09-14-2023 L Specimen: [id number] eceived: 09/15/23 Status: FILIBERTO Moncadaq Num: [id number] Spec Type: Surgical Subm Dr: Marbin Ceballos MD FACS Tissues: A Soft Tissue/Surgical Margin-Other than Tumor,Mass,Lip or Sho (PERITONEUM) Procedures: HE, Gross/Micro L4 Age/ Patient Sex Location Account Attending Physician Abraham Harry 62/M [facility] [id number] Marbin Ceballos MD FACS SPEC NUM: [id number] RECD: 09/15/23 STATUS: FILIBERTO LORENZO NUM: [id number] TONG: 09/14/[address]: Marbin Ceballos MD FACS ENTERED: 09/15/23 [facility] DR: iWlliam Christie SPEC TYPE: Surgical DEPT: JONATHAN DOTSON [...] serially sectioned revealing unremarkable fibrous cut surfaces. Beef Trimmer sections are submitted in A1. Clinical history: Incisional hernia TW CPT Codes 10622 -------- -------- Specimen: [id number] Received: 09/15/23 Status: FILIBERTO Hayley Num: [id number] Spec Type: Surgical Subm Dr: Marbin Ceballos MD [facility] Tissues: A Soft Tissue/Surgical Margin-Other than Tumor,Mass,Lip or Sho (PERITONEUM) Procedures: Duran ROBLES/Fermin Aponte -------- Patient: Abraham Harry [id number] (Continued) -------- Signed (signature on file) Ena Jain MD 09/16/232035 [facility] Provider Orderson 09-14-2023 Provider Orders [id number]#[facility] 12-Leadon 09-02-2023 ECG 12-Lead [id number]#1.00TIFF [facility] Lab Reportson 09-02-2023 Lab Reports [id number]#1.00TIFF [facility] Lab Reports [id number]#1.00TIFF [facility] RAD - MISCon 09-02-2023 RAD - MISC [id number]#1.00TIFF [facility] Pre-Certification Formon Pre-Certification Form [id number]#1.00TIFF [facility] Provider Orderson 08-25-2023 Provider Orders [id number]#1.00[facility] Insurance Correspondenceon 0 08-24-2023 Insurance Correspondence [id number]#[facility] 08-16-2023 Forms [id number]#1.00TIFF [facility] General Surgery Office/Clini c Noteon 08-04-2023 General [...] PRN A (more content not included)... Normal [facility] Comment on above: Result Comment: Elec tronically Signed By: LIN FENTON, Marbin R\.br\Date and Time Signed: 08/04/23 08:34 EDT Consent for Procedure/Surger yon 08-03-2023 Consent for Procedure/Surgery [id number]#1.00TIFF Dee Merino [facility] Ambulatory Visit Summaryon 0 08-02-2023 Ambulatory Visit [...] you for choosing us for your care. [facility] RAD - CT Reporton 08-01-2023 RAD - CT Report [id number]#1.00TIFF [facility] Rad - Other Radiology Report on 07-28-2023 Rad - Other Radiology Report [id number]#1.00[facility] Pre-Certification Formon Pre-Certification Form [id number]#1.00TIFF [facility] Lab Reportson 07-26-2023 Lab Reports [id number]#1.00TIFF [facility] Miscellaneouson 07-20-2023 Miscellaneous [id number]#1.00OTGTIFF Normal [facility] Ambulatory Visit Summaryon 0 07-12-2023 Ambulatory Visit Summary ABRAHAM HARRY :1960 Visit Date:07/12/2023 Ambulatory Visit Instructions Your Care Team Attending Physician - Marbin CEBALLOS MD Primary Care Physician - NIRAV CAIN DO Referring Physician - NIRAV CAIN DO This [...] for choosing us for your care. Normal [facility] Physician Referralon 024 Physician Referral [id number]#1.00TIFF [facility] Lab - Other Lab Resultson Lab - Other Lab Results [id number]#1.00[facility] Lab - Other Lab Results [id number]#1.00[facility] Lab - Other Lab Results [id number]#1.00[facility] Lab - Other Lab Results [id number]#1.00[facility] Lab - Other Lab Resultson Lab - Other Lab Results [id number]#1.00[facility] Konstantin White Allergenon 023 Konstantin White Allergen <0.10 Normal Class 0 [facility] Comment on above: Performed By: #### S ORREL SHE, SYCAMORE, KONSTANTIN WHITE, MULBERRY WHITE, BIRCH TREE #### [facility] , [place] Common Silver All chucky 04-05-2023 [place] Common Silver Aller <0.10 Normal Class 0 [facility] Comment on above: Performed By: #### S STACI KUHN, SYCAM[place], KONSTANTIN WHITE, MULBERRY WHITE, BIRCH TREE #### [facility] , [place], White Allergenon 1 06-06-2022 [place], White Allergen <0.10 Normal Class 0 [facility] Comment on above: Result Comment: Perf ormed at: [facility] [address] [id number] Galvanizing Pot Runner: Christiana Arenas MD, Phone: [phone] PERFORMED BY: [place] [address] [place] [address] PATHOLOGIST RETIREMENT PLAN COUNSELOR EDUARD MARCANO M.D. Performed By: #### S STACI KUHN, SYCAMORE, KONSTANTIN WHITE, MULBERRY WHITE, BIRCH TREE #### [facility] , [place] Sheep Allergenon [place] Sheep Allergen 0.10 Critically abnormal Class 0/I [facility] Comment on above: Result Comment: [...] MULBERRY WHITE, BIRCH TREE #### [facility] , Cope Allergenon 04-05-20 Cope Allergen 0.15 Critically abnormal Class 0/I [facility] Comment on above: Result Comment: Perf ormed at: - [facility] [place] [id number] [place], [place] [id number] Galvanizing Pot Runner: Christiana Arenas MD, Phone: [phone] Performed By: #### S WILLIAMEL BAM, [place], KONSTANTIN WHITE, MULBERRY WHITE, BIRCH TREE #### [facility] , Outside Recordson 03-23-2023 Outside Records [id number]#1.00OTGTIFF Normal [facility] Alternaria alternata IgE Ab [Units/volume] in SerumOrdered By: Chan Taylor on 03-22-2023 A. alternata IgE Qn (S) 0.22 kU/L Class 0/I [facility] [place] house dust mite IgE Ab [Units/volume] in SerumOrdered By: Chan Taylor on 03-22-2023 [place] house dust mite IgE Qn (S) 17.30 kU/L Class IV [facility] Area 5 Allergens with IgEon 03-22-2023 Alternaria Alternata 0.22 Critically abnormal Class 0/I [facility] Comment on above: Performed By: #### A LLERGEN 5 #### [facility] , Konstantin White Allergen Normal . [facility] Comment on above: Result Comment: Test not performed. Insufficient specimen to perform or complete analysis. Contacted your facility 03/31/2023 Performed By: #### A LLERGEN 5 #### [facility] , Aspergillis Fumigatus Allergen <0.10 Normal Class 0 [facility] Comment on above: Performed By: #### A LLERGEN 5 #### [facility] , Berm[place] Grass Allergen 0.15 Critically abnormal Class 0/I [facility] Comment on above: Performed By: #### A LLERGEN 5 #### [facility] , Al[place] Common Silver Aller Normal . [facility] Comment on above: Result Comment: Test not performed. Insufficient specimen to perform or complete analysis. Contacted your facility 03/31/2023 Performed By: #### A LLERGEN 5 #### [facility] , Cat Hair/Dander Allergen 1.32 Critically abnormal Class II [facility] Comment on above: Performed By: #### A LLERGEN 5 #### [facility] , Isabella, Mountain Allergen 0.11 Critically abnormal Class 0/I [facility] Comment on above: Performed By: #### A LLERGEN 5 #### [facility] , Cladosporium Herbarum <0.10 Normal Class 0 [facility] Comment on above: Performed By: #### A LLERGEN 5 #### [facility] , CLASS DESCRIPTION Normal . [facility] Comment on above: Result Comment: Sapphier avitia of Specific IgE Class Description of Class ----- < 0.10 0 Negative 0.10 - 0.31 0/I Equivocal/Low 0.32 - 0.55 I Low 0.56 - 1.40 II Moderate 1.41 - 3.90 III High 3.91 - 19.00 IV Very High 19.01 - 100.00 V Very High >100.00 Very High Performed By: #### A LLERGEN 5 #### [facility] , Cockroach Tamazight Allergen 0.33 Critically abnormal Class I [facility] Comment on above: Performed By: #### A LLERGEN 5 #### [facility] , Bandera Allergen <0.10 Normal Class 0 [facility] Comment on above: Performed By: #### A LLERGEN 5 #### [facility] , D Farinae Mite Allergen 17.30 Critically abnormal Class IV [facility] Comment on above: Performed By: #### A LLERGEN 5 #### [facility] , D Pteronyssinus Allergen 18.40 Critically abnormal Class IV [facility] Comment on above: Performed By: #### A LLERGEN 5 #### [facility] , Dog Hair/Dander Allergen 0.28 Critically abnormal Class 0/I [facility] Comment on above: Performed By: #### A LLERGEN 5 #### [facility] , Elm Tree Allergen <0.10 Normal Class 0 [facility] Comment on above: Performed By: #### A LLERGEN 5 #### [facility] , Immunoglobulin E 111 Normal 6-495 [facility] Comment on above: Performed By: #### A LLERGEN 5 #### [facility] , Maple/De Witt Allergen 0.13 Critically abnormal Class 0/I [facility] Comment on above: Performed By: #### A LLERGEN 5 #### [facility] , Mouse Urine Allergen <0.10 Normal Class 0 [facility] Comment on above: Result Comment: PERF ORMED BY: [facility] [address] [place] [address] PATHOLOGIST RETIREMENT PLAN COUNSELOR EDUARD MARCANO M.D. Performed By: #### A LLERGEN 5 #### [facility] , [place], White Allergen Normal . [facility] Comment on above: Result Comment: Test not performed. Insufficient specimen to perform or complete analysis. Contacted your facility 03/31/2023 Performed By: #### A LLERGEN 5 #### [facility] , [place] Tree Allergen <0.10 Normal Class 0 [facility] Comment on above: Performed By: #### A LLERGEN 5 #### [facility] , Pecan/Jay Em Tree Allergen <0.10 Normal Class 0 [facility] Comment on above: Performed By: #### A LLERGEN 5 #### [facility] , Penicillium Chrysogen Mold All <0.10 Normal Class 0 [facility] Comment on above: Performed By: #### A LLERGEN 5 #### [facility] , Pigweed Allergen <0.10 Normal Class 0 [facility] Comment on above: Performed By: #### A LLERGEN 5 #### [facility] , Ragweed Short Allergen 0.10 Critically abnormal Class 0/I [facility] Comment on above: Performed By: #### A LLERGEN 5 #### [facility] , [place] Sheep Allergen Normal . [facility] Comment on above: Result Comment: Test not performed. Insufficient specimen to perform or complete analysis. Contacted your facility 03/31/2023 Performed By: #### A LLERGEN 5 #### [facility] , Cope Allergen Normal . [facility] Comment on above: Result Comment: Test not performed. Insufficient specimen to perform or complete analysis. Contacted your facility 03/31/2023 Performed By: #### A LLERGEN 5 #### [facility] , Thistle Nigerien Allergen 0.18 Critically abnormal Class 0/I [facility] Comment on above: Performed By: #### A LLERGEN 5 #### [facility] , Benjy Allergen <0.10 Normal Class 0 [facility] Comment on above: Performed By: #### A LLERGEN 5 #### [facility] , Mcclellan Tree Pollen Allergen 0.11 Critically abnormal Class 0/I [facility] Comment on above: Performed By: #### A LLERGEN 5 #### [facility] , Aspergillus fumigatus IgE Ab [Units/volume] in SerumOrdered By: Chan Taylor on 03-22-2023 A. fumigatus IgE Qn (S) <0.10 kU/L Class 0 [facility] Berm[place] grass IgE Ab [Units/ volume] in SerumOrdered By: Chan Taylor on 03-22-2023 B[place] grass IgE Qn (S) 0.15 kU/L Class 0/I [facility] Boxelder IgE Ab [Units/volum e] in SerumOrdered By: Chan Taylor on 03-22-2023 Boxelder IgE Qn (S) 0.13 kU/L Class 0/I [facility] Cladosporium herbarum IgE Ab [Units/volume] in SerumOrdered By: Chan Taylor on 03-22-2023 C. herbarum IgE Qn (S) <0.10 kU/L Class 0 [facility] Cockroach IgE Ab [Units/volu me] in SerumOrdered By: Chan Taylor on 03-22-2023 Cockroach IgE Qn (S) 0.33 kU/L Class I [facility] Bandera IgE Ab [Units/vol ume] in SerumOrdered By: Chan Taylor on 03-22-2023 Bandera IgE Qn (S) <0.10 kU/L Class 0 [facility] Dog dander IgE Ab [Units/vol ume] in SerumOrdered By: Chan Taylor on 03-22-2023 Dog dander IgE Qn (S) 0.28 kU/L Class 0/I [facility] Eosinophil Counton 3 Eosinophils (Bld) [#/Vol] 0.3 10*3/uL Normal 0.0-0.45 [facility] Comment on above: Order Comment: Reaso n for Exam Asthma with COPD Result Comment: PERF ORMED BY: [place] [address] PATHOLOGIST RETIREMENT PLAN COUNSELOR EDUARD MARCANO M.D. Performed By: #### E OS COUNT #### [facility] [address] [place] [address] [place] Eosinophils/100 WBC (Bld) 3.4 % Normal . [facility] Comment on above: Order Comment: Reaso n for Exam Asthma with COPD Performed By: #### E OS COUNT #### [facility] [address] [place] [address] [place] WBC (Bld) [#/Vol] 8.6 10*3/uL Normal 4.1-10.5 [facility] Comment on above: Order Comment: Reaso n for Exam Asthma with COPD Performed By: #### E OS COUNT #### [facility] [address] Eosinophils Auto (Bld) [#/Vo l]Ordered By: Chan Taylor on 03-22-2023 Eosinophils (Bld) [#/Vol] 0.3 10*3/uL 0.0-0.45 [facility] Eosinophils/100 WBC Auto (Bl d)Ordered By: Chan Taylor on 03-22-2023 Eosinophils/100 WBC (Bld) 3.4 % . [facility] house dust mite IgE Ab [Units/volume] in SerumOrdered By: Chan Taylor on 03-22-2023 house dust mite IgE Qn (S) 18.40 kU/L Class IV [facility] IgE [Units/volume] in Serum or PlasmaOrdered By: Chan Taylor on 03-22-2023 IgE Qn 111 [IU]/mL 6-495 [facility] Leukocytes [#/volume] correc brandyn for nucleated erythrocytes in Blood by Automated counOrdered By: Chan Taylor on 03-22-2023 WBC corrected for nucl RBC Auto (Bld) [#/Vol] 8.6 10*3/uL 4.1-10.5 [facility] Mountain Juniper IgE Ab [Uni ts/volume] in SerumOrdered By: Chan Taylor on 03-22-2023 Mountain Juniper IgE Qn (S) 0.11 kU/L Class 0/I [facility] Mouse urine proteins IgE Ab [Units/volume] in SerumOrdered By: Chan Taylor on 03-22-2023 Mouse urine proteins IgE Qn (S) <0.10 kU/L Class 0 [facility] No Panel InformationOrdered By: Chan Taylor on 03-22-2023 Allergen Note See comment . [facility] Comment on above: Levels of Specific I gE Class Description of Class ----- < 0.10 0 Negative 0.10 - 0.31 0/I Equivocal/Low 0.32 - 0.55 I Low 0.56 - 1.40 II Moderate 1.41 - 3.90 III High 3.91 - 19.00 IV Very High 19.01 - 100.00 V Very High >100.00 Very High Pecan or Jay Em Tree IgE Ab [Units/volume] in SerumOrdered By: Chan Taylor on 03-22-2023 Pecan or Jay Em Tree IgE Qn (S) <0.10 kU/L Class 0 [facility] Saltwort IgE Ab [Units/volum e] in SerumOrdered By: Chan Taylor on 03-22-2023 Saltwort IgE Qn (S) 0.18 kU/L Class 0/I [facility] Serum [place] sycamore IgE antibody assay (units/volume)Ordered By: Chan Taylor on 03-22-2023 [place] Cope IgE Qn (S) See comment . [facility] Comment on above: Test not performed. Insufficient specimen to perform orcomplete analysis.Contacted your facility 03/31/2023 Serum Penicillium chrysogenu m specific IgE antibody assayOrdered By: Chan Taylor on 03-22-2023 P. notatum IgE Qn (S) <0.10 kU/L Class 0 [facility] Serum cat dander IgG antibod y assay (units/volume)Ordered By: Chan Taylor on 03-22-2023 Cat dander IgG Qn (S) 1.32 kU/L Class II [facility] Serum rough pigweed IgE anti body assay (units/volume)Ordered By: Chan Taylor on 03-22-2023 Rough Pigweed IgE Qn (S) <0.10 kU/L Class 0 [facility] Serum short ragweed specific IgE antibody assayOrdered By: Chan Taylor on 03-22-2023 Common Ragweed IgE Qn (S) 0.10 kU/L Class 0/I [facility] Serum white elm IgG antibody assay (units/volume)Ordered By: Chan Taylor on 03-22-2023 White Elm IgG Qn (S) <0.10 kU/L Class 0 [facility] Sheep [place] IgE Ab [Units/v olume] in SerumOrdered By: Chan Taylor on 03-22-2023 Sheep [place] IgE Qn (S) See comment . [facility] Comment on above: Test not performed. Insufficient specimen to perform orcomplete analysis.Contacted your facility 03/31/2023 Silver Birch IgE Ab [Units/v olume] in SerumOrdered By: Chan Taylor on 03-22-2023 Silver Birch IgE Qn (S) See comment . [facility] Comment on above: Test not performed. Insufficient specimen to perform orcomplete analysis.Contacted your facility 03/31/2023 Benjy IgE Ab [Units/volume ] in SerumOrdered By: Chan Taylor on 03-22-2023 Benjy IgE Qn (S) <0.10 kU/L Class 0 [facility] Mcclellan IgE Ab [Units/volume] in SerumOrdered By: Chan Taylor on 03-22-2023 Mcclellan IgE Qn (S) 0.11 kU/L Class 0/I [facility] White Konstantin IgE Ab [Units/volu me] in SerumOrdered By: Chan Taylor on 03-22-2023 White Konstantin IgE Qn (S) See comment . [facility] Comment on above: Test not performed. Insufficient specimen to perform orcomplete analysis.Contacted your facility 03/31/2023 Paron IgE Ab [Units/volu me] in SerumOrdered By: Chan Taylor on 03-22-2023 Paron IgE Qn (S) <0.10 kU/L Class 0 [facility] White mulberry IgE Ab [Units /volume] in SerumOrdered By: Chan Taylor on 03-22-2023 White mulberry IgE Qn (S) See comment . [facility] Comment on above: Test not performed. Insufficient specimen to perform orcomplete analysis.Contacted your facility 03/31/2023 Provider Letteron 03-14-2023 Provider Letter (Inserted Image. Dinora ble to display) March 14, 2023 ABRAHAM HARRY [address] [place] [address] : 1960 To Whom It May Concern, The above named person may return to work 03/15/2023 without restrictions. Sincerely, Dr. Marbin Ceballos MD General Surgery [facility] Lab - Other Lab Resultson Lab - Other Lab Results [id number]#[address] [place] [address] Outside Recordson 02-16-2023 Outside Records [id number]#[address] [place] [address] Patient Provided Health Data on 02-16-2023 Patient Provided Health Data [id number]#1.[address] [place] [address] Cult,Bloodon 01-31-2023 Cult,Blood Specimen Description .BLOOD Special Requests L HAND 2ML Culture NO GROWTH 5 DAYS Report Status FINAL 01/30/2023 [facility] Comment on above: Performed By: #### B C #### [address] [id number] Galvanizing Pot Runner: Candelario Kramer MD Cult,Blood Specimen Description .BLOOD Special Requests R AC 11ML Culture NO GROWTH 5 DAYS Report Status FINAL 01/30/2023 [facility] Comment on above: Performed By: #### B C #### [address] [id number] Galvanizing Pot Runner: Candelario Kramer MD Office Visit (Cardiology)on 01-27-2023 [...] Weight Tips; Status:Complete - Retrospective Authorization; Done: [id number] Some eating tips that can help you lose weight.; Status:Complete - Retrospective Authorization; Done: [id number] Hyperlipidemia Renew: Atorvastatin Calcium 80 MG Oral Tablet; TAKE 1 TABLET BY MOUTH EVERY DAY SocHx: Former smoker Tobacco Use Screening; Status:Complete; Done: [id number] Patient Instructions Please bring all medicines, vitamins, [...] for which she was urgently hospitalized at [facility]. He underwent laparoscopic cholecystectomy and was hospitalized for 5 days. More recently had some more abdominal discomfort and was transferred to [place] where he underwent MRI and HIDA scan. [...] Recorded: 27Jan2023 08:32AM Heart Rate80, L Radial Endxmkux443, LUE, Sitting Ebcslxmvm46, LUE (more content not included)... Normal [facility] Patient Handouton 01-27-2023 Patient Handout [id number]#1.00[facility] Tobacco Screening.on 09-28-2 023 Adult depression screening assessment No [facility] Work Phone: Fall risk assessment a) No falls within the last year [facility] Work Phone: Tobacco use status [facility] b) No [facility] Work Phone: CBC with Auto Differentialon 01-26-2023 Basophils (Bld) [#/Vol] 0.07 10*3/uL [facility] Basophils/100 WBC (Bld) 1 % 0 - 2 % [facility] Eosinophils (Bld) [#/Vol] 0.43 10*3/uL [facility] [...] [Ratio] 0.0 % 0.0 per 100 WBC [facility] Platelet mean volume (Bld) [Entitic vol] 10.7 fL 8.1 - 13.5 fL [facility] Platelets (Bld) [#/Vol] 249 10*3/uL [facility] RBC (Bld) [#/Vol] 3.38 10*6/uL Low 4.21 - 5.77 m/uL [facility] Segmented neutrophils/100 WBC (Bld) 4.77 % [facility] WBC other (Bld) [#/Vol] 7.1 [facility] CBC with Diffon 01-26-2023 Abs. Basophil 0.07 k/uL Normal 0.00-0.20 [facility] Comment on above: Performed By: #### P T CP, CDP #### [place] [address] Galvanizing Pot Runner: Candelario Kramer MD Abs.Imm.Granulocyte 0.05 k/uL Normal 0.00-0.30 [facility] Comment on above: Performed By: #### P T CP, CDP #### [facility] [employer] [address] [place] [address] Galvanizing Pot Runner: Candelario Kramer MD Abs.Neutrophil (Seg) 4.77 k/uL Normal 1.50-8.10 [facility] Comment on above: Performed By: #### P T CP, CDP #### [facility] [address] [place] [address] Galvanizing Pot Runner: Candelario Kramer MD Basophils/100 WBC (Bld) 1 % Normal 0-2 [facility] Comment on above: Performed By: #### P T, CP, CDP #### [facility] [employer] [address] [place] [address] Galvanizing Pot Runner: Candelario Kramer MD Eosinophils (Bld) [#/Vol] 0.43 10*3/uL Normal 0.00-0.44 [facility] Comment on above: Performed By: #### P T, CP, CDP #### [facility] [address] [place] [address] Galvanizing Pot Runner: Candelario Kramer MD Eosinophils/100 WBC (Bld) 6 % High 1-4 [facility] Comment on above: Performed By: #### P T, CP, CDP #### [facility] [employer] [address] [place] [address] Galvanizing Pot Runner: Candelario Kramer MD Erythrocyte distribution width (RBC) [Ratio] 13.6 % Normal 11.8-14.4 [facility] Comment on above: Performed By: #### P T, CP, CDP #### [facility] [employer] [address] [place] [address] Galvanizing Pot Runner: Candelario Kramer MD Hematocrit (Bld) [Volume fraction] 31.6 % Low 40.7-50.3 [facility] Comment on above: Performed By: #### P T, CP, CDP #### [facility] [address] [place] [address] Galvanizing Pot Runner: Candelario Kramer MD Hemoglobin (Bld) [Mass/Vol] 10.3 g/dL Low 13.0-17.0 [facility] Comment on above: Performed By: #### P T, CP, CDP #### [facility] [employer] [address] [place] [address] Galvanizing Pot Runner: Candelario Kramer MD Immature granulocytes/100 WBC (Bld) 1 % High 0 [facility] Comment on above: Performed By: #### P T, CP, CDP #### [facility] [employer] [address] [place] [address] Galvanizing Pot Runner: Candelario Kramer MD Lymphocytes (Bld) [#/Vol] 1.33 10*3/uL Normal 1.10-3.70 [facility] Comment on above: Performed By: #### P T, CP, CDP #### [address] [address] Galvanizing Pot Runner: Candelario Kramer MD Lymphocytes/100 WBC (Bld) 19 % Low 24-43 [facility] Comment on above: Performed By: #### P T, CP, CDP #### [address] [address] Galvanizing Pot Runner: Candelario Kramer MD MCH (RBC) [Entitic mass] 30.5 pg Normal 25.2-33.5 [facility] Comment on above: Performed By: #### P T, CP, CDP #### [address] [address] Galvanizing Pot Runner: Candelario Kramer MD MCHC (RBC) [Mass/Vol] 32.6 g/dL Normal 28.4-34.8 [facility] Comment on above: Performed By: #### P T, CP, CDP #### [address] [address] Galvanizing Pot Runner: Candelario Kramer MD MCV (RBC) [Entitic vol] 93.5 fL Normal 82.6-102.9 [facility] Comment on above: Performed By: #### P T, CP, CDP #### [address] [address] Galvanizing Pot Runner: Candelario Kramer MD Monocytes (Bld) [#/Vol] 0.41 10*3/uL Normal 0.10-1.20 [facility] Comment on above: Performed By: #### P T, CP, CDP #### [address] [address] Galvanizing Pot Runner: Candelario Kramer MD Monocytes/100 WBC (Bld) 6 % Normal 3-12 [facility] Comment on above: Performed By: #### P T, CP, CDP #### [address] [address] Galvanizing Pot Runner: Candelario Kramer MD Neutrophil (Seg) 67 % High 36-65 [facility] Comment on above: Performed By: #### P T, CP, CDP #### [address] [address] Galvanizing Pot Runner: Candelario Kramer MD NRBC Automated 0.0 per [address] [facility] Comment on above: Performed By: #### P T, CP, CDP #### [address] [address] Galvanizing Pot Runner: Candelario Kramer MD Platelet mean volume (Bld) [Entitic vol] 10.7 fL Normal 8.1-13.5 [facility] Comment on above: Performed By: #### P T, CP, CDP #### [address] [address] Galvanizing Pot Runner: Candelario Kramer MD Platelets (Bld) [#/Vol] 249 10*3/uL Normal 138-453 [facility] Comment on above: Performed By: #### P T, CP, CDP #### [address] [address] Galvanizing Pot Runner: Candelario Kramer MD RBC (Bld) [#/Vol] 3.38 10*6/uL Low 4.21-5.77 [facility] Comment on above: Performed By: #### P T, CP, CDP #### [address] [address] Galvanizing Pot Runner: Candelario Kramer MD WBC (Bld) [#/Vol] 7.1 10*3/uL Normal 3.5-11.3 [facility] Comment on above: Performed By: #### P T, CP, CDP #### [address] [address] Galvanizing Pot Runner: Candelario Kramer MD Comp Metabolic Profon 2022 Albumin [Mass/Vol] 3.6 g/dL Normal 3.5-5.2 [facility] Comment on above: Performed By: #### P T, CP, CDP #### [facility] [address] [place] [address] Galvanizing Pot Runner: Candelario Kramer MD Albumin/Glob Ratio 1.5 Normal 1.0-2.5 [facility] Comment on above: Performed By: #### P T, CP, CDP #### [facility] [address] [place] [address] Galvanizing Pot Runner: Candelario Kramer MD Alkaline Phos 209 U/L High 40-129 [facility] Comment on above: Performed By: #### P T, CP, CDP #### [facility] [employer] [address] [place] [address] Galvanizing Pot Runner: Candelario Kramer MD ALT [Catalytic activity/Vol] 87 U/L High 5-41 [facility] Comment on above: Performed By: #### P T CP, CDP #### [facility] [employer] [address] [place] [address] Galvanizing Pot Runner: Candelario Kramer MD Anion gap [Moles/Vol] 11 mmol/L Normal 9-17 [facility] Comment on above: Performed By: #### P T, CP, CDP #### [facility] [address] [place] [address] [employer] Pot Runner: Candelario Kramer MD AST [Catalytic activity/Vol] 93 U/L High <40 [facility] Comment on above: Performed By: #### P T, CP, CDP #### [facility] [employer] [address] [place] [address] [employer] Runner: Candelario Kramer MD Bilirubin [Mass/Vol] 0.9 mg/dL Normal 0.3-1.2 [facility] Comment on above: Performed By: #### P T, CP, CDP #### [address] [address] Galvanizing Pot Runner: Candelario Kramer MD Calcium [Mass/Vol] 8.6 mg/dL Normal 8.6-10.4 [facility] Comment on above: Performed By: #### P T, CP, CDP #### [address] [address] [employer]vanizing Pot Runner: Candelario Kramer MD Chloride [Moles/Vol] 105 mmol/L Normal 98-107 [facility] Comment on above: Performed By: #### P T, CP, CDP #### [address] [address] Gal[employer]izing Pot Runner: Candealrio Kramer MD CO2 [Moles/Vol] 22 mmol/L Normal 20-31 [facility] Comment on above: Performed By: #### P T, CP, CDP #### [address] [address] Galvanizing Pot Runner: Candelario Kramer MD Creatinine [Mass/Vol] 0.7 mg/dL Normal 0.7-1.2 [facility] Comment on above: Performed By: #### P T, CP, CDP #### [address] [address] Galvanizing Pot Runner: Candelario Kramer MD GFR/1.73 sq M.predicted among non-blacks MDRD (S/P/Bld) [Vol rate/Area] mL/min/{1.73_m2} Normal >60 [facility] Comment on above: Result Comment: These [...] By: #### P T, CP, CDP #### [facility] [address] [place] [address] [employer]izing Pot Runner: Candelario Kramer MD Glucose [Mass/Vol] 90 mg/dL Normal 70-99 [facility] Comment on above: Performed By: #### P T, CP, CDP #### [facility] [address] [place] [address] Gal[employer]izing Pot Runner: Candelario Kramer MD Potassium [Moles/Vol] 3.8 mmol/L Normal 3.7-5.3 [facility] Comment on above: Performed By: #### P T, CP, CDP #### [facility] [employer] [address] [place] [address] Gal[employer]izing Pot Runner: Candelario Kramer MD Protein [Mass/Vol] 6.0 g/dL Low 6.4-8.3 [facility] Comment on above: Performed By: #### P T, CP, CDP #### [facility] [employer] [address] [place] [address] Gal[employer]izing Pot Runner: Candelario Kramer MD Sodium [Moles/Vol] 138 mmol/L Normal 135-144 [facility] Comment on above: Performed By: #### P T, CP, CDP #### [facility] [employer] [address] [place] [address] Gal[employer]izing Pot Runner: Candelario Kramer MD Urea nitrogen [Mass/Vol] 14 mg/dL Normal 8-23 [facility] Comment on above: Performed By: #### P T, CP, CDP #### [facility] [employer] [address] [place] [address] Galvanizing Pot Runner: Candelario Kramer MD [facility] 01-26-2023 Albumin [Mass/Vol] 3.6 g/dL 3.5 - 5.2 g/dL [facility] Albumin/Globulin [Mass ratio] 1.5 {ratio} 1.0 - 2.5 [facility] ALP [Catalytic activity/Vol] 209 U/L High 40 - 129 U/L [facility] ALT [Catalytic activity/Vol] 87 U/L High 5 - 41 U/L [facility] Anion gap [Moles/Vol] 11 mmol/L 9 - 17 mmol/L [facility] AST [Catalytic activity/Vol] 93 U/L High NINF - 40 U/L [facility] Bilirubin [Mass/Vol] 0.9 mg/dL 0.3 - 1.2 mg/dL [facility] Calcium [Mass/Vol] 8.6 mg/dL 8.6 - 10. 4 mg/dL [facility] Chloride [Moles/Vol] 105 mmol/L 98 - 107 mmol/L [facility] CO2 [Moles/Vol] 22 mmol/L 20 - 31 mmol/L [facility] Creatinine [Mass/Vol] 0.7 mg/dL 0.7 - 1.2 mg/dL [facility] GFR/1.73 sq M.predicted MDRD (S/P/Bld) [Vol rate/Area] - PINF [facility] Comment on above: These results are not [...] [Mass/Vol] 90 mg/dL 70 - 99 mg/dL [facility] Potassium [Moles/Vol] 3.8 mmol/L 3.7 - 5.3 mmol/L [facility] Protein [Mass/Vol] 6.0 g/dL Low 6.4 - 8.3 g/dL [facility] Sodium [Moles/Vol] 138 mmol/L 135 - 144 mmol/L [facility] Urea nitrogen [Mass/Vol] 14 mg/dL 8 - 23 mg/dL [facility] MRI ABDOMEN WO CONTRAST MRCP on 01-26-2023 [...] Rey Charles MD 01/26/[address] [facility] Radiology Study observation (narrative) [facility] Surgically absent gallbladder. No biliary ductal dilatation or retained common duct stone. Heterogeneous fluid is seen in the gallbladder fossa, presumably post operative fluid. Signal loss seen in liver on out of phase images, compatible with fatty infiltration PN RIS CONSOLIDATED EXAMINATION: MRI OF THE ABDOMEN [...] of phase images, compatible with fatty infiltration [facility] HEPATOBILIARYon 3 NM HEPATOBILIARY EXAMINATION: NUCLEAR MEDICINE [...] Saurabh Paul MD 01/26/[address] [facility] Radiology Study observation (narrative) [facility] No convincing scinti graphic evidence for a bile leak. [facility] CONSOLIDATED EXAMINATION: NUCLEAR MEDICINE HEPATOBILIARY SCINTIGRAPHY (HIDA [...] pericolic gutter to suggest a bile leak. [facility] Saurabh Paul MD - 01/26/2023 EXAMINATION: [...] convincing scintigraphic evidence for a bile leak. [facility] [place] No Panel Informationon 01-26 Interpretation and review of laboratory results Abnormal [facility] [employer] [facility] No Panel InformationOrdered By: Rey Charles on 01-26-2023 [facility] [employer] Work Phone: PTon 01-26-2023 INR Coag (PPP) [Relative time] 1.0 {INR} Normal [facility] Comment on above: Result Comment: Therapeutic Range: Moderate Anticoagulant Intensity: INR = 2.0-3.0 High Anticoagulant Intensity: INR = 2.5-3.5 Performed By: #### P T CP, CDP #### [employer] [address] [place], [place] [phone] Galvanizing Pot Runner: Candelario Kramer MD PT Coag (PPP) [Time] 13.1 s Normal 11.7-14.9 [facility] Comment on above: Performed By: #### P T CP, CDP #### [employer] [address] [place] [address] Gal[employer]izing Pot Runner: Candelario Kramer MD Protime-INRon 01-26-2023 INR Coag (PPP) [Relative time] 1.0 {INR} [facility] Comment on above: Therapeutic Range: Moderate Anticoagulant Intensity: INR = 2.0-3.0 High Anticoagulant Intensity: INR = 2.5-3.5 PT Coag (PPP) [Time] 13.1 s [facility] CBC with Auto Differentialon 01-25-2023 Basophils (Bld) [#/Vol] 0.05 10*3/uL [facility] Basophils/100 WBC (Bld) 1 % 0 - 2 % [facility] Eosinophils (Bld) [#/Vol] 0.35 10*3/uL [facility] Eosinophils/100 WBC (Bld) 4 % 1 - 4 % [facility] Erythrocyte distribution width (RBC) [Ratio] 13.8 % 11.8 - 14.4 % [facility] Hematocrit (Bld) [Volume fraction] 32.9 % Low 40.7 - 50.3 % [facility] Hemoglobin (Bld) [Mass/Vol] 10.6 g/dL Low 13.0 - 17.0 g/dL [facility] Immature granulocytes (Bld) [#/Vol] 0.04 10*3/uL [facility] Immature granulocytes/100 WBC (Bld) 1 % High 0 [facility] Lymphocytes/100 WBC (Bld) 19 % Low 24 - 43 % [facility] Lymphocytes/100 WBC (Bld) 1.50 % [facility] MCH (RBC) [Entitic mass] 30.0 pg 25.2 - 33.5 pg [facility] MCHC (RBC) [Mass/Vol] 32.2 g/dL 28.4 - 34.8 g/dL [facility] MCV (RBC) [Entitic vol] 93.2 fL 82.6 - 102.9 fL [facility] Monocytes/100 WBC (Bld) 6 % 3 - 12 % [facility] Monocytes/100 WBC (Bld) 0.51 % [facility] Neutrophils/100 WBC (Bld) 69 % High 36 - 65 % [facility] Nucleated RBC/100 WBC (Bld) [Ratio] 0.0 % 0.0 per 100 WBC [facility] Platelet mean volume (Bld) [Entitic vol] 10.4 fL 8.1 - 13.5 fL [facility] Platelets (Bld) [#/Vol] 300 10*3/uL [facility] RBC (Bld) [#/Vol] 3.53 10*6/uL Low 4.21 - 5.77 m/uL [facility] Segmented neutrophils/100 WBC (Bld) 5.55 % [facility] WBC other (Bld) [#/Vol] 8.0 [facility] CBC with Diffon 01-25-2023 Abs. Basophil 0.05 k/uL Normal 0.00-0.20 [facility] Comment on above: Performed By: #### C DP, CP, LACTIC #### [place] [address] Gal[employer]izing Pot Runner: Candelario Kramer MD Abs.Imm.Granulocyte 0.04 k/uL Normal 0.00-0.30 [facility] Comment on above: Performed By: #### C DP, CP, LACTIC #### [place] [address] [employer]izing Pot Runner: Candelario Kramer MD Abs.Neutrophil (Seg) 5.55 k/uL Normal 1.50-8.10 [facility] Comment on above: Performed By: #### C DP, CP, LACTIC #### [place] [address] [employer] Runner: Candelario Kramer MD Basophils/100 WBC (Bld) 1 % Normal 0-2 [facility] Comment on above: Performed By: #### C DP, CP, LACTIC #### [place] [address] [employer] Pot Runner: Candelario Kramer MD Eosinophils (Bld) [#/Vol] 0.35 10*3/uL Normal 0.00-0.44 [facility] Comment on above: Performed By: #### C DP, CP, LACTIC #### [place] [address] [employer]izing Pot Runner: Candelario Kramer MD Eosinophils/100 WBC (Bld) 4 % Normal 1-4 [facility] Comment on above: Performed By: #### C DP, CP, LACTIC #### [place] [address] [employer]izing Pot Runner: Candelario Kramer MD Erythrocyte distribution width (RBC) [Ratio] 13.8 % Normal 11.8-14.4 [facility] Comment on above: Performed By: #### C DP, CP, LACTIC #### [place] [address] [employer] Pot Runner: Candelario Kramer MD Hematocrit (Bld) [Volume fraction] 32.9 % Low 40.7-50.3 [facility] Comment on above: Performed By: #### C DP, CP, LACTIC #### [place] [address] Gal[employer]izing Pot Runner: Candelario Kramer MD Hemoglobin (Bld) [Mass/Vol] 10.6 g/dL Low 13.0-17.0 [facility] Comment on above: Performed By: #### C DP, CP, LACTIC #### [place] [address] [employer] Pot Runner: Candelario Kramer MD Immature granulocytes/100 WBC (Bld) 1 % High 0 [facility] Comment on above: Performed By: #### C DP, CP, LACTIC #### [place] [address] Gal[employer]izing Pot Runner: Candelario Kramer MD Lymphocytes (Bld) [#/Vol] 1.50 10*3/uL Normal 1.10-3.70 [facility] Comment on above: Performed By: #### C DP, CP, LACTIC #### [facility] [employer] [address] [place] [address] Gal[employer]izing Pot Runner: Candelario Kramer MD Lymphocytes/100 WBC (Bld) 19 % Low 24-43 [facility] Comment on above: Performed By: #### C DP, CP, LACTIC #### [address] [address] Galvanizing Pot Runner: Candelario Kramer MD MCH (RBC) [Entitic mass] 30.0 pg Normal 25.2-33.5 [facility] Comment on above: Performed By: #### C DP, CP, LACTIC #### [address] [address] Gal[employer]izing Pot Runner: Candelario Kramer MD MCHC (RBC) [Mass/Vol] 32.2 g/dL Normal 28.4-34.8 [facility] Comment on above: Performed By: #### C DP, CP, LACTIC #### [address] [address] Gal[employer]izing Pot Runner: Candelario Kramer MD MCV (RBC) [Entitic vol] 93.2 fL Normal 82.6-102.9 [facility] Comment on above: Performed By: #### C DP, CP, LACTIC #### [place] [address] Gal[employer]izing Pot Runner: Candelario Kramer MD Monocytes (Bld) [#/Vol] 0.51 10*3/uL Normal 0.10-1.20 [facility] Comment on above: Performed By: #### C DP, CP, LACTIC #### [address] [address] Gal[employer]izing Pot Runner: Candelario Kramer MD Monocytes/100 WBC (Bld) 6 % Normal 3-12 [facility] Comment on above: Performed By: #### C DP, CP, LACTIC #### [address] [address] Galvanizing Pot Runner: Candelario Kramer MD Neutrophil (Seg) 69 % High 36-65 [facility] Comment on above: Performed By: #### C DP, CP, LACTIC #### [address] [address] Gal[employer]izing Pot Runner: Candelario Kramer MD NRBC Automated 0.0 per [address] [facility] Comment on above: Performed By: #### C DP, CP, LACTIC #### [address] [address] Galvanizing Pot Runner: Candelario Kramer MD Platelet mean volume (Bld) [Entitic vol] 10.4 fL Normal 8.1-13.5 [facility] Comment on above: Performed By: #### C DP, CP, LACTIC #### [address] [address] Galvanizing Pot Runner: Candelario Kramer MD Platelets (Bld) [#/Vol] 300 10*3/uL Normal 138-453 [facility] Comment on above: Performed By: #### C DP, CP, LACTIC #### [address] [address] Galvanizing Pot Runner: Candelario Kramer MD RBC (Bld) [#/Vol] 3.53 10*6/uL Low 4.21-5.77 [facility] Comment on above: Performed By: #### C DP, CP, LACTIC #### [address] [address] Galvanizing Pot Runner: Candelario Kramer MD WBC (Bld) [#/Vol] 8.0 10*3/uL Normal 3.5-11.3 [facility] Comment on above: Performed By: #### C DP, CP, LACTIC #### [address] [address] Galvanizing Pot Runner: Candelario Kramer MD Comp Metabolic Profon 2022 Albumin [Mass/Vol] 3.8 g/dL Normal 3.5-5.2 [facility] Comment on above: Performed By: #### C DP, CP, LACTIC #### [address] [address] Galvanizing Pot Runner: Candelario Kramer MD Albumin/Glob Ratio 1.5 Normal 1.0-2.5 [facility] Comment on above: Performed By: #### C DP, CP, LACTIC #### [facility] [employer] [address] [place] [address] Gal[employer]izing Pot Runner: Candelario Kramer MD Alkaline Phos 229 U/L High 40-129 [facility] Comment on above: Performed By: #### C DP, CP, LACTIC #### [facility] [employer] [address] [place] [address] Gal[employer]izing Pot Runner: Candelario Kramer MD ALT [Catalytic activity/Vol] 114 U/L High 5-41 [facility] Comment on above: Performed By: #### C DP, CP, LACTIC #### [address] [address] Gal[employer]izing Pot Runner: Candelario Kramer MD Anion gap [Moles/Vol] 11 mmol/L Normal 9-17 [facility] Comment on above: Performed By: #### C DP, CP, LACTIC #### [facility] [employer] [address] [place] [address] Galvanizing Pot Runner: Candelario Kramer MD AST [Catalytic activity/Vol] 189 U/L High <40 [facility] Comment on above: Performed By: #### C DP, CP, LACTIC #### [facility] [employer] [address] [place] [address] Gal[employer]izing Pot Runner: Candelario Kramer MD Bilirubin [Mass/Vol] 0.8 mg/dL Normal 0.3-1.2 [facility] Comment on above: Performed By: #### C DP, CP, LACTIC #### [address] [address] Gal[employer]izing Pot Runner: Candelario Kramer MD Calcium [Mass/Vol] 8.7 mg/dL Normal 8.6-10.4 [facility] Comment on above: Performed By: #### C DP, CP, LACTIC #### [address] [address] Galvanizing Pot Runner: Candelario Kramer MD Chloride [Moles/Vol] 105 mmol/L Normal 98-107 [facility] Comment on above: Performed By: #### C DP, CP, LACTIC #### [address] [address] Gal[employer]izing Pot Runner: Candelario Kramer MD CO2 [Moles/Vol] 23 mmol/L Normal 20-31 [facility] Comment on above: Performed By: #### C DP, CP, LACTIC #### [address] [address] Galvanizing Pot Runner: Candelario Kramer MD Creatinine [Mass/Vol] 0.8 mg/dL Normal 0.7-1.2 [facility] Comment on above: Performed By: #### C DP, CP, LACTIC #### [address] [address] Gal[employer]izing Pot Runner: Candelario Kramer MD GFR/1.73 sq M.predicted among non-blacks MDRD (S/P/Bld) [Vol rate/Area] mL/min/{1.73_m2} Normal >60 [facility] Comment on above: Result Comment: These [...] By: #### C DP, CP, LACTIC #### [facility] [address] [place] [address] [employer]izing Pot Runner: Candelario Kramer MD Glucose [Mass/Vol] 88 mg/dL Normal 70-99 [facility] Comment on above: Performed By: #### C DP, CP, LACTIC #### [facility] [address] [place] [address] [employer] Runner: Candelario Kramer MD Potassium [Moles/Vol] 4.3 mmol/L Normal 3.7-5.3 [facility] Comment on above: Performed By: #### C DP, CP, LACTIC #### [address] [address] [employer]izing [employer] Runner: Candelario Kramer MD Protein [Mass/Vol] 6.3 g/dL Low 6.4-8.3 [facility] Comment on above: Performed By: #### C DP, CP, LACTIC #### [address] [address] [employer]izing Pot Runner: Candelario Kramer MD Sodium [Moles/Vol] 139 mmol/L Normal 135-144 [facility] Comment on above: Performed By: #### C DP, CP, LACTIC #### [facility] [address] [place] [address] [employer] Runner: Candelario Kramer MD Urea nitrogen [Mass/Vol] 15 mg/dL Normal 8-23 [facility] Comment on above: Performed By: #### C DP, CP, LACTIC #### [facility] [address] [place] [address] Gal[employer]izing Pot Runner: Candelario Kramer MD [facility] 01-25-2023 Albumin [Mass/Vol] 3.8 g/dL 3.5 - 5.2 g/dL [facility] Albumin/Globulin [Mass ratio] 1.5 {ratio} 1.0 - 2.5 [facility] ALP [Catalytic activity/Vol] 229 U/L High 40 - 129 U/L [facility] ALT [Catalytic activity/Vol] 114 U/L High 5 - 41 U/L [facility] Anion gap [Moles/Vol] 11 mmol/L 9 - 17 mmol/L [facility] AST [Catalytic activity/Vol] 189 U/L High NINF - 40 U/L [facility] Bilirubin [Mass/Vol] 0.8 mg/dL 0.3 - 1.2 mg/dL [facility] Calcium [Mass/Vol] 8.7 mg/dL 8.6 - 10. 4 mg/dL [facility] Chloride [Moles/Vol] 105 mmol/L 98 - 107 mmol/L [facility] CO2 [Moles/Vol] 23 mmol/L 20 - 31 mmol/L [facility] Creatinine [Mass/Vol] 0.8 mg/dL 0.7 - 1.2 mg/dL [facility] GFR/1.73 sq M.predicted MDRD (S/P/Bld) [Vol rate/Area] - PINF [facility] Comment on above: These results are not [...] 88 mg/dL 70 - 99 mg/dL [facility] Potassium [Moles/Vol] 4.3 mmol/L 3.7 - 5.3 mmol/L [facility] Protein [Mass/Vol] 6.3 g/dL Low 6.4 - 8.3 g/dL [facility] Sodium [Moles/Vol] 139 mmol/L 135 - 144 mmol/L [facility] Urea nitrogen [Mass/Vol] 15 mg/dL 8 - 23 mg/dL [facility] Lactic Acidon 01-25-2023 Lactic Acid, Whole Blood 1.7 mmol/L 0.7 - 2.1 mmol/L [facility] Lactic Acid,Whole Bl 1.7 mmol/L Normal 0.7-2.1 [facility] Comment on above: Performed By: #### C DP, CP, LACTIC #### [facility] [address] [id number] [employer] Runner: Candelario Kramer MD No Panel Informationon 01-25 Interpretation and review of laboratory results Abnormal [facility] Ambulatory Visit Summaryon 0 01-19-2023 Ambulatory [...] attack) HTN (hypertension) Obesity Plantar fasciitis Normal [facility] General Surgery Office/Clini c Noteon 01-19-2023 General Surgery Office/Clinic Note HPI Staff 9 day post operative follow up post lap cholecystectomy completed while in-patient at [facility]. Denies discomfort, no use of pain medication. [...] SARS-CoV-2 (COVID-19) mRNA-1273 vaccine 08/22/2020 Recorded Normal [facility] Comment on above: Result Comment: Elec tronically Signed By: LIN FENTON, Marbin Chaudhari\Date and Time Signed: 01/19/23 16:30 EDT Operative Reporton Operative Report [id number]#1.00CD:127 Normal [facility] Pathology Noteon 01-17-2023 Pathology Note [id number]#1.00CD:127 Normal [facility] Consultation Noteon 01-13-20 Consultation Note [id number]#1.00CD:127 Normal [facility] Consultation Noteon 01-12-20 Consultation Note [id number]#1.00CD:127 Normal [facility] Consultation Note [id number]#1.00CD:127 Normal [facility] Consultation Note [id number]#1.00CD:127 Normal [facility] Consultation Note [id number]#1.00CD:127 [facility] Lab Reportson 01-11-2023 Lab Reports [id number]#1.00CD:127 Normal [facility] Lab Reports [id number]#1.00CD:127 [facility] Lab Reports [id number]#1.00CD:127 [facility] Lab Reports [id number]#1.00CD:127 Normal [facility] RAD - Ultrasound Reporton RAD - Ultrasound Report [id number]#1.00CD:127 Normal [facility] Cardiac Stress Teston 2022 Cardiac Stress Test [address], [address] [place] [address] Exercise Stress Test Patient Name: ABRAHAM Garzon Ordering Physician: [id number] HARRY MD Study Date: 12/21/2022 Reading Physician: [id number] Baca MD MRN/PID: [id number] Supervising [id number] Baca Physician: Accession/Order#: [id number] Referring Physician: REY BACA Date of : 1960 PCP: [id number] Nirav Cain MD Gender: M Fellow: Height: 180.34 cm Nurse: Magali Parks RN Weight: 116.58 kg 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 3. Normal Stress Test. [id number] Rey Baca MD Electronically signed on 12/23/2022 at 3:40:53 PM Final Normal [facility] Cardiac Stress Test MP-[facility] DO Work Phone: Office [...] Test; Status:Hold For - Scheduling,Retrospective Authorization; Requested for:[id number]; Class 2 obesity with body mass index (BMI) of 36.0 to 36.9 in adult Healthy Weight Tips; Status:Complete - Retrospective Authorization; Done: [id number] Some eating tips that can help you lose weight.; Status:Complete - Retrospective Authorization; Done: [id number] SocHx: Former smoker Tobacco Use Screening; Status:Complete; Done: [id number] Patient Instructions Please bring all medicines, vitamins, [...] a coronary angiogram 7 years ago in [facility] where he had moderate disease treated medically. [...] negative for complaint. Vitals Vital Signs Recorded: [id number] 09:21AM Heart Rate84, L Radial Lkfxrsez158, LUE, Sitting Ujqxikylu55, LUE, Sitting Height5 ft 10.5 in Pfxmkg192 lb BMI Cgnmmaukqj05.35 kg/m2 BSA Calculated2.33 Tobacco Useb) No PHQ-2 [...] auscultation. Card (more content not included)... Normal [facility] XR chest 2V*on 09-30-2022 XR chest 2V* [facility] [place] [address] [place] [address] XRay Report Signed Patient: Abraham Harry MR#: [id number] : 1960 Acct:[id number] Age/Sex: 61 / M ADM Date: 09/30/22 Loc: RT Room: Type: [facility] Attending Dr: Chan Taylor MD Copies to: [...] Porter Jr., D.O.09/30/2022 3:55 PM Dictation Location: [place] [address] Transcribed By: [facility] 09/30/22 1555 Dictated By: Rosales Porter Jr, DO 09/30/22 1555 Signed By: 09/30/22 1555 Normal [facility] Office Visit (Cardiology)on 04-15-2022 Follow-up [...] Weight Tips; Status:Complete - Retrospective Authorization; Done: [id number] Some eating tips that can help you lose weight.; Status:Complete - Retrospective Authorization; Done: [id number] Hyperlipidemia Renew: Atorvastatin Calcium 80 MG Oral Tablet; TAKE 1 TABLET BY MOUTH EVERY DAY SocHx: Former smoker Tobacco Use Screening; Status:Complete; Done: [id number] Tobacco Use Screening; Status:Complete; Done: [id number] Patient Instructions Please bring all medicines, vitamins, [...] negative for complaint. Vitals Vital Signs Recorded: [id number] 03:07PM Heart Rate96, R Radial [id number], LUE, Sitting Brtxukzvd64, LUE, Sitting Height5 ft 10.5 in Ymunjb147 lb 3.2 oz BMI Gqafvidabs57.8 kg/m2 BSA Calculated2.37 Tobacco Useb) No Physical Exam Constitutional: alert and in no acute distress. Eyes: no erythema, swelling or discharge from the eye . Neck: neck is supple, symmetric, trachea midline, no masses and no thyromegaly . Pulmonary: no increased work of breathing or signs of respiratory distress and lungs clear to auscultation. Cardiovascula (more content not included)... Normal [facility] Tobacco Screening.on 022 Tobacco use status CPHS b) No [facility] y 250 DO Work Phone: CBC AUTO DIFFon 02-18-2022 BASO # 0.1 103/ul Normal 0.0-0.1 [facility] Comment on above: Performed By: #### C BC #### [facility] [address] [address] [address] Demetria Jain Basophils/100 WBC (Bld) 0.7 % Normal 0.2-2.0 [facility] Comment on above: Performed By: #### C BC #### [facility] [address] [address] [address] Demetria Jain EO # 0.2 103/ul Normal 0.0-0.7 [facility] Comment on above: Performed By: #### C BC #### [facility] [address] [address] [address] Demetria Jain Eosinophils/100 WBC (Bld) 2.4 % Normal 0.9-7.0 [facility] Comment on above: Performed By: #### C BC #### [facility] [address] [address] [address] Demetria Jain Erythrocyte distribution width (RBC) [Ratio] 12.6 % Normal 11.0-15.0 [facility] Comment on above: Performed By: #### C BC #### [facility] [address] [address] [address] Demetria Jain Hematocrit (Bld) [Volume fraction] 38.1 % Critically low 42.0-54.0 [facility] Comment on above: Performed By: #### C BC #### [facility] [address] [address] [address] Demetria Jain Hemoglobin (Bld) [Mass/Vol] 12.5 g/dL Critically low 14.0-18.0 [facility] Comment on above: Performed By: #### C BC #### [facility] [address] [place] [address] Dr. Demetria Jain IG # 0.04 10e3/ul Critically high 0.00-0.03 [facility] Comment on above: Performed By: #### C BC #### [facility] [address] [place] [address] Dr. Demetria Jain IG % 0.4 % Normal 0.0-0.5 [facility] Comment on above: Performed By: #### C BC #### [facility] [address] [place] [address] Dr. Demetria Jain LYMPH # 1.4 103/ul Normal 1.2-3.8 [facility] Comment on above: Performed By: #### C BC #### [facility] [address] [place] [address] Dr. Demetria Jain Lymphocytes/100 WBC (Bld) 13.6 % Critically low 20.5-60.0 [facility] Comment on above: Performed By: #### C BC #### [facility] [address] [place] [address] Dr. Demetria Jain MANUAL DIFF REQ NO Normal [facility] Comment on above: Performed By: #### C BC #### [facility] [address] [place] [address] Dr. Demetria Jain MCH (RBC) [Entitic mass] 30.2 pg Normal 25.9-34.0 [facility] Comment on above: Performed By: #### C BC #### [facility] [address] [place] [address] Dr. Demetria Jain MCHC (RBC) [Mass/Vol] 32.8 g/dL Normal 29.9-35.2 [facility] Comment on above: Performed By: #### C BC #### [facility] [address] [place] [address] Dr. Demetria Jain MCV (RBC) [Entitic vol] 92.0 fL Normal 80.0-94.0 [facility] Comment on above: Performed By: #### C BC #### [facility] [address] [address] [address] Demetria Jain MONO # 0.5 103/ul Normal 0.3-0.8 [facility] Comment on above: Performed By: #### C BC #### [facility] [address] [address] [address] Demetria Jain Monocytes/100 WBC (Bld) 4.5 % Normal 1.7-12.0 [facility] Comment on above: Performed By: #### C BC #### [facility] [address] [address] [address] Demetria Jain NEUT # 7.9 103/ul Critically high 1.4-6.5 [facility] Comment on above: Performed By: #### C BC #### [facility] [address] [place] [address] Dr. Demetria Jain Neutrophils/100 WBC (Bld) 78.4 % Critically high 43.0-75.0 [facility] Comment on above: Performed By: #### C BC #### [facility] [address] [address] [address] Demetria Jain Platelet mean volume (Bld) [Entitic vol] 11.0 fL Normal 9.5-13.5 [facility] Comment on above: Performed By: #### C BC #### [facility] [address] [place] [address] Dr. Demetria Jain PLT 243 103/ul Normal 150-450 [facility] Comment on above: Performed By: #### C BC #### [facility] [address] [address] [address] Demetria Jain RBC 4.14 106/ul Critically low 4.70-6.10 [facility] Comment on above: Performed By: #### C BC #### [facility] [address] [address] [address] Demetria Jain WBC 10.0 103/ul Normal 4.0-11.0 [facility] Comment on above: Performed By: #### C BC #### [facility] [address] [address] [address] Demetria Jain LIPID PROFILEon 02-18-2022 CHOL-HDL RATIO NORM SEE BELOW Normal [facility] Comment on above: Result Comment: 3.3 - 4.4 LOW RISK 4.4 - 7.1 AVERAGE RISK 7.1 - 11.0 MODERATE RISK >11.0 HIGH RISK Performed By: #### C MP, LIPID #### [facility] [address] [address] [address] Demetria Jain Cholesterol [Mass/Vol] 171 mg/dL Normal <=200 [facility] Comment on above: Performed By: #### C MP, LIPID #### [facility] [address] [address] [address] Demetria Jain Cholesterol in HDL [Mass/Vol] 78 mg/dL Critically high 40-60 [facility] Comment on above: Performed By: #### C MP, LIPID #### [facility] [address] [address] [address] Demetria Jain Cholesterol in LDL [Mass/Vol] 83.6 mg/dL Normal [facility] Comment on above: Performed By: #### C MP, LIPID #### [facility] [address] [address] [address] Demetria Jain Cholesterol.total/C holesterol in HDL [Mass ratio] 2.2 {ratio} Normal [facility] Comment on above: Performed By: #### C MP, LIPID #### [facility] [address] [address] [address] Demetria Jain HDL NORMAL > or = 60 mg/dl - LO W CARDIOVASCULAR RISK <40 mg/dl - HIGH CARDIOVASCULAR RISK Normal [facility] Comment on above: Performed By: #### C MP, LIPID #### [facility] [address] [address] [address] Demetria Jain LDL CALC NORMAL SEE BELOW Normal [facility] Comment on above: Result Comment: <100 mg/dl OPTIMAL 100 - 129 mg/dl NEAR OR ABOVE OPTIMAL 130 - 159 mg/dl BORDERLINE HIGH 160 - 189 mg/dl HIGH >190 mg/dl VERY HIGH Performed By: #### C MP, LIPID #### [facility] [address] [place] [address] Dr. Demetria Jain Triglyceride [Mass/Vol] 47 mg/dL Normal <=150 [facility] Comment on above: Performed By: #### C MP, LIPID #### [facility] [address] [address] [address] Demetria Jain VLDL CALC 9.4 mg/dL Normal [facility] Comment on above: Performed By: #### C MP, LIPID #### [facility] [address] [place] [address] Dr. Demetria Jain PROF 14(COMP METB)on 022 Albumin [Mass/Vol] 4.0 g/dL Normal 3.4-5.[address] [facility] Comment on above: Performed By: #### C MP, LIPID #### [facility] [address] [place] [address] Dr. Demetria Jain Albumin/Globulin [Mass ratio] 1.1 {ratio} Normal [facility] Comment on above: Performed By: #### C MP, LIPID #### [facility] [address] [place] [address] Dr. Demetria Jain ALP [Catalytic activity/Vol] 89 U/L Normal 46-116 [facility] Comment on above: Performed By: #### C MP, LIPID #### [facility] [address] [place] [address] Dr. Demetria Jain ALT [Catalytic activity/Vol] 26 U/L Normal 16-63 [facility] Comment on above: Performed By: #### C MP, LIPID #### [facility] [address] [place] [address] Dr. Demetria Jain Anion gap [Moles/Vol] 15.0 mmol/L Normal [facility] Comment on above: Performed By: #### C MP, LIPID #### [facility] [address] [place] [address] Dr. Demetria Jain AST [Catalytic activity/Vol] 18 U/L Normal 15-37 [facility] Comment on above: Performed By: #### C MP, LIPID #### [facility] [address] [address] [address] Demetria Jain Bilirubin [Mass/Vol] 0.7 mg/dL Normal 0.2-1.0 [facility] Comment on above: Performed By: #### C MP, LIPID #### [facility] [address] [address] [address] Demetria aJin Calcium [Mass/Vol] 9.2 mg/dL Normal 8.5-10.[address] [facility] Comment on above: Performed By: #### C MP, LIPID #### [facility] [address] [place] [address] Dr. Demetria Jain Chloride [Moles/Vol] 100 mmol/L Normal 98-107 [facility] Comment on above: Performed By: #### C MP, LIPID #### [facility] [address] [place] [address] Dr. Demetria Jain CO2 [Moles/Vol] 25.8 mmol/L Normal 21.0-32.0 [facility] Comment on above: Performed By: #### C MP, LIPID #### [facility] [address] [place] [address] Dr. Demetria Jain Creatinine [Mass/Vol] 0.76 mg/dL Normal 0.70-1.30 [facility] Comment on above: Performed By: #### C MP, LIPID #### [facility] [address] [place] [address] Dr. Demetria Jain EGFR-AF SCOTTISH >60 Normal >=60 [facility] Comment on above: Performed By: #### C MP, LIPID #### [facility] [address] [place] [address] Dr. Demetria Jain EGFR-NON AF SCOTTISH >60 Normal >=60 [facility] Comment on above: Performed By: #### C MP, LIPID #### [facility] [address] [place] [address] Dr. Demetria Jain Globulin (S) [Mass/Vol] 3.6 g/dL Normal [facility] Comment on above: Performed By: #### C MP, LIPID #### [facility] [address] [place] [address] Dr. Demetria Jain Glucose [Mass/Vol] 87 mg/dL Normal 74-106 [facility] Comment on above: Performed By: #### C MP, LIPID #### [facility] [address] [place] [address] Dr. Demetria Jain Potassium [Moles/Vol] 3.8 mmol/L Normal 3.5-5.1 [facility] Comment on above: Performed By: #### C MP, LIPID #### [facility] [address] [place] [address] Dr. Demetria Jain Protein [Mass/Vol] 7.6 g/dL Normal 6.4-8.2 [facility] Comment on above: Performed By: #### C MP, LIPID #### [facility] [address] [place] [address] Dr. Demetria Jain Sodium [Moles/Vol] 137 mmol/L Normal 136-145 [facility] Comment on above: Performed By: #### C MP, LIPID #### [facility] [address] [place] [address] Dr. Demetria Jain Urea nitrogen [Mass/Vol] 15.0 mg/dL Normal 7.0-18.0 [facility] Comment on above: Performed By: #### C MP, LIPID #### [facility] [address] [place] [address] Dr. Demetria Jain Urea nitrogen/Creatinine [Mass ratio] 19.7 mg/mg Normal [facility] Comment on above: Performed By: #### C MP, LIPID #### [facility] [address] [place] [address] Dr. Demetria Jain CBC AUTO DIFFon 04-23-2021 BASO # 0.1 103/ul Normal 0.0-0.1 [facility] Comment on above: Performed By: #### C BC #### [facility] [address] [place] [address] Dr. Demetria Jain Basophils/100 WBC (Bld) 0.5 % Normal 0.2-2.0 [facility] Comment on above: Performed By: #### C BC #### [facility] [address] [place] [address] Dr. Demetria Jain EO # 0.3 103/ul Normal 0.0-0.7 [facility] Comment on above: Performed By: #### C BC #### [facility] [address] [place] [address] Dr. Demetria Jain Eosinophils/100 WBC (Bld) 2.8 % Normal 0.9-7.0 [facility] Comment on above: Performed By: #### C BC #### [facility] [address] [place] [address] Dr. Demetria Jain Erythrocyte distribution width (RBC) [Ratio] 12.7 % Normal 11.0-15.0 [facility] Comment on above: Performed By: #### C BC #### [facility] [address] [place] [address] Dr. Demetria Jain Hematocrit (Bld) [Volume fraction] 38.1 % Critically low 42.0-54.0 [facility] Comment on above: Performed By: #### C BC #### [facility] [address] [place] [address] Dr. Demetria Jain Hemoglobin (Bld) [Mass/Vol] 12.9 g/dL Critically low 14.0-18.0 [facility] Comment on above: Performed By: #### C BC #### [facility] [address] [place] [address] Dr. Demetria Jain IG # 0.04 10e3/ul Critically high 0.00-0.03 [facility] Comment on above: Performed By: #### C BC #### [facility] [address] [place] [address] Dr. Demetria Jain IG % 0.4 % Normal 0.0-0.5 [facility] Comment on above: Performed By: #### C BC #### [facility] [address] [place] [address] Dr. Demetria Jain LYMPH # 1.3 103/ul Normal 1.2-3.8 [facility] Comment on above: Performed By: #### C BC #### [facility] [address] [address] [address] Demetria Jain Lymphocytes/100 WBC (Bld) 11.5 % Critically low 20.5-60.0 [facility] Comment on above: Performed By: #### C BC #### [facility] [address] [address] [address] Demetria Jain MANUAL DIFF REQ NO Normal [facility] Comment on above: Performed By: #### C BC #### [facility] [address] [place] [address] Dr. Demetria Jain MCH (RBC) [Entitic mass] 30.4 pg Normal 25.9-34.0 [facility] Comment on above: Performed By: #### C BC #### [facility] [address] [place] [address] Dr. Demetria Jain MCHC (RBC) [Mass/Vol] 33.9 g/dL Normal 29.9-35.2 [facility] Comment on above: Performed By: #### C BC #### [facility] [address] [place] [address] Dr. Demetria Jain MCV (RBC) [Entitic vol] 89.9 fL Normal 80.0-94.0 [facility] Comment on above: Performed By: #### C BC #### [facility] [address] [place] [address] Dr. Demetria Jain MONO # 0.7 103/ul Normal 0.3-0.8 [facility] Comment on above: Performed By: #### C BC #### [facility] [address] [place] [address] Dr. Demetria Jain Monocytes/100 WBC (Bld) 6.3 % Normal 1.7-12.0 [facility] Comment on above: Performed By: #### C BC #### [facility] [address] [place] [address] Dr. Demetria Jain NEUT # 8.8 103/ul Critically high 1.4-6.5 [facility] Comment on above: Performed By: #### C BC #### [facility] [address] [address] [address] Demetria Jain Neutrophils/100 WBC (Bld) 78.5 % Critically high 43.0-75.0 [facility] Comment on above: Performed By: #### C BC #### [facility] [address] [address] [address] Demetria Jain Platelet mean volume (Bld) [Entitic vol] 10.6 fL Normal 9.5-13.5 [facility] Comment on above: Performed By: #### C BC #### [facility] [address] [address] [address] Demetria Jain PLT 226 103/ul Normal 150-450 [facility] Comment on above: Performed By: #### C BC #### [facility] [address] [address] [address] Demetria Jain RBC 4.24 106/ul Critically low 4.70-6.10 [facility] Comment on above: Performed By: #### C BC #### [facility] [address] [address] [address] Demetria Jain WBC 11.2 103/ul Critically high 4.0-11.0 [facility] Comment on above: Performed By: #### C BC #### [facility] [address] [place] [address] ABD/PELV W CONon 04-23-[address] ABD/PELV W CON CLINICAL HISTORY: AB [...] EDIN SELF Date: 2021-04-23 21:42 Normal [facility] URINE PROFILEon 1 Bilirubin Ql (U) Negative Normal NEGATIVE [facility] Comment on above: Performed By: #### E RUR #### [facility] [address] [place] [address] Dr. Demetria Jain Clarity (U) CLEAR Normal CLEAR [facility] Comment on above: Performed By: #### E RUR #### [facility] [address] [place] [address] Dr. Demetria Jain Color (U) LT. YELLOW Normal YELLOW [facility] Comment on above: Performed By: #### E RUR #### [facility] [address] [place] [address] Dr. Demetria Jain ERUELDON A micrscopic examina tion will be performed if indicated. Normal [facility] Comment on above: Performed By: #### E RUR #### [facility] [address] [place] [address] Dr. Demetria Jain Glucose Ql (U) Negative Normal NEGATIVE [facility] Comment on above: Performed By: #### E RUR #### [facility] [address] [place] [address] Dr. Demetria Jain Hemoglobin Ql (U) Negative Normal NEGATIVE [facility] Comment on above: Performed By: #### E RUR #### [facility] [address] [place] [address] Dr. Demetria Jain Ketones Ql (U) Negative Normal NEGATIVE [facility] Comment on above: Performed By: #### E RUR #### [facility] [address] [place] [address] Dr. Demetria Jain LEUKOCYTES Negative Normal NEGATIVE [facility] Comment on above: Performed By: #### E RUR #### [facility] [address] [place] [address] Dr. Demetria Jain Nitrite Ql (U) Negative Normal NEGATIVE [facility] Comment on above: Performed By: #### E RUR #### [facility] [address] [place] [address] Dr. Demetria Jain pH (U) 5.5 [pH] Normal 5-9 [facility] Comment on above: Performed By: #### E RUR #### [facility] [address] [place] [address] Dr. Demetria Jain SPEC GRAVITY 1.025 Normal 1.005-<=1. 025 [facility] Comment on above: Performed By: #### E RUR #### [facility] [address] [place] [address] Dr. Demetria Jain UA PROTEIN Negative Normal NEGATIVE/ TRACE [facility] Comment on above: Performed By: #### E RUR #### [facility] [address] [place] [address] Dr. Demetria Jain UR MICRO IND NOT INDICATED Normal [facility] Comment on above: Performed By: #### E RUR #### [facility] [address] [place] [address] Dr. Demetria Jain Urobilinogen Qn (U) 0.2 {Cata'U}/dL Normal 0.2 - 1. 0 [facility] Comment on above: Performed By: #### E RUR #### [facility] [address] [place] [address] Dr. Demetria Jain LACTATE/LACTIC ACIDon 2020 Lactate [Moles/Vol] 1.7 mmol/L Normal 0.7-2.0 [facility] Comment on above: Performed By: #### L ACT #### [facility] [address] [place] [address] Dr. Demetria Jain LIPASEon 04-23-2021 Lipase [Catalytic activity/Vol] 68.0 U/L Normal 23.0-300.0 [facility] Comment on above: Performed By: #### C MP, LIPA #### [facility] [address] [place] [address] Dr. Demetria Jain PROF 14(COMP METB)on 021 Albumin [Mass/Vol] 3.7 g/dL Normal 3.5-5.[address] [facility] Comment on above: Performed By: #### C MP, LIPA #### [facility] [address] [place] [address] Dr. Demetria Jain Albumin/Globulin [Mass ratio] 1.0 {ratio} Normal [facility] Comment on above: Performed By: #### C MP, LIPA #### [facility] [address] [place] [address] Dr. Demetria Jain ALP [Catalytic activity/Vol] 99 U/L Normal 38-126 [facility] Comment on above: Performed By: #### C MP, LIPA #### [facility] [address] [place] [address] Dr. Demetria Jain ALT [Catalytic activity/Vol] 31 U/L Normal 21-72 [facility] Comment on above: Performed By: #### C MP, LIPA #### [facility] [address] [place] [address] Dr. Demetria Jain Anion gap [Moles/Vol] 15.0 mmol/L Normal [facility] Comment on above: Performed By: #### C MP, LIPA #### [facility] [address] [address] [address] Demetria Jain AST [Catalytic activity/Vol] 24 U/L Normal 17-59 [facility] Comment on above: Performed By: #### C MP, LIPA #### [facility] [address] [place] [address] Dr. Demetria Jain Bilirubin [Mass/Vol] 0.8 mg/dL Normal 0.2-1.3 [facility] Comment on above: Performed By: #### C MP, LIPA #### [facility] [address] [place] [address] Dr. Demetria Jain Calcium [Mass/Vol] 9.2 mg/dL Normal 8.4-10.2 The [facility] Comment on above: Performed By: #### C MP, LIPA #### [facility] [address] [place] [address] Dr. Demetria Jain Chloride [Moles/Vol] 98 mmol/L Normal 98-107 [facility] Comment on above: Performed By: #### C MP, LIPA #### [facility] [address] [place] [address] Dr. Demetria Jain CO2 [Moles/Vol] 23.6 mmol/L Normal 22.0-30.0 The [facility] Comment on above: Performed By: #### C MP, LIPA #### [facility] [address] [place] [address] Dr. Demetria aJin Creatinine [Mass/Vol] 0.93 mg/dL Normal 0.66-1.25 [facility] Comment on above: Performed By: #### C MP, LIPA #### [facility] [address] [place] [address] Dr. Demetria Jain EGFR-AF SCOTTISH >60 Normal >=60 The [facility] Comment on above: Performed By: #### C MP, LIPA #### [facility] [address] [place] [address] Dr. Demetria Jain EGFR-NON AF SCOTTISH >60 Normal >=60 [facility] Comment on above: Performed By: #### C MP, LIPA #### [facility] [address] [address] [address] Demetria Jain Globulin (S) [Mass/Vol] 3.6 g/dL Normal [facility] Comment on above: Performed By: #### C MP, LIPA #### [facility] [address] [address] [address] Demetria Jain Glucose [Mass/Vol] 103 mg/dL Normal 74-[address] [facility] Comment on above: Performed By: #### C MP, LIPA #### [facility] [address] [place] [address] Dr. Demetria Jain Potassium [Moles/Vol] 3.6 mmol/L Normal 3.4-5.0 [facility] Comment on above: Performed By: #### C MP, LIPA #### [facility] [address] [place] [address] Dr. Demetria Jain Protein [Mass/Vol] 7.3 g/dL Normal 6.1-8.2 The [facility] Comment on above: Performed By: #### C MP, LIPA #### [facility] [address] [place] [address] Dr. Demetria Jain Sodium [Moles/Vol] 133 mmol/L Critically low 137-145 [facility] Comment on above: Performed By: #### C MP, LIPA #### [facility] [address] [place] [address] Dr. Demetria Jain Urea nitrogen [Mass/Vol] 15.0 mg/dL Normal 9.0-20.0 [facility] Comment on above: Performed By: #### C MP, LIPA #### [facility] [address] [place] [address] Dr. Demetria Jain Urea nitrogen/Creatinine [Mass ratio] 16.1 mg/mg Normal [facility] Comment on above: Performed By: #### C MP, LIPA #### [facility] [address] [place] [address] Dr. Demetria Jain TROPONIN, HIGH SENSITIVITYon 04-23-2021 HSTROP 9.3 pg/mL Normal 4.0-42.2 [facility] Comment on above: Result Comment: CUT- OFF POINTS HAVE BEEN ESTABLISHED BASED ON THE FOURTH UNIVERSAL DEFINITIONS OF MYOCARDIAL INFARCTION. THE UPPER REFERENCE LIMIT (URL) OF TROPONIN, DEFINED THE 99TH PERCENTILE OF cTnI DISTRIBUTION IN A REFERENCE POPULATION, HAS BEEN CONFIRMED THE DECISION THRESHOLD FOR [place] DIAGNOSIS. Performed By: #### H STROPN ####[facility] [address] [place], [place] [address]VyVero Jain Tobacco Screening.on 021 Fall risk assessment a) No falls within the last year -[facility] [address] DO Work Phone: Tobacco use status CPHS b) No [facility] [address] DO Work Phone: CREATININEon 04-08-2020 Creatinine [Mass/Vol] 0.84 mg/dL Normal 0.70-1.33 [facility] Comment on above: Result Comment: For patients >49 years of age, the reference limit for Creatinine is approximately 13% higher for people identified as -[place]. Performed By: #### 3 75, 294, 14155 #### [facility]-[address], [address] [place] [address] Casting Wheel Operator Helper: Faraz Garcia MD Creatinine [Mass/Vol] 97 mL/min/1.73m2 Normal > OR = 60 [facility] Comment on above: Performed By: #### 3 75, 294, 22933 #### [facility]-[place] [address] Casting Wheel Operator Helper: Faraz Garcia MD Creatinine [Mass/Vol] 113 mL/min/1.73m2 Normal > OR = 60 [facility] Comment on above: Performed By: #### 3 75, 294, 77796 #### [facility]-[place] [address] Casting Wheel Operator Helper: Faraz Garcia MD ELECTROLYTE PANELon 04-08-20 20 Chloride [Moles/Vol] 102 mmol/L Normal 98-110 [facility] Comment on above: Performed By: #### 3 75, 294, 44914 #### [facility]-[address], [address] [place], [place] [address] Casting Wheel Operator Helper: Faraz Garcia MD CO2 [Moles/Vol] 28 mmol/L Normal 20-32 [facility] Comment on above: Performed By: #### 3 75, 294, 65870 #### [facility]-[address], [address] [place] [address] Casting Wheel Operator Helper: Faraz Garcia MD Potassium [Moles/Vol] 3.6 mmol/L Normal 3.5-5.3 [facility] Comment on above: Performed By: #### 3 75, 294, 64952 #### [facility]-[address], [address] [place] [address] Casting Wheel Operator Helper: Faraz Garcia MD Sodium [Moles/Vol] 139 mmol/L Normal 135-146 [facility] Comment on above: Performed By: #### 3 75, 294, 38184 #### [facility]-[address], [address] [place] [address] Casting Wheel Operator Helper: Faraz Garcia MD UREA NITROGEN (BUN)on 2019 Urea nitrogen [Mass/Vol] 13 mg/dL Normal 7-25 [facility] Comment on above: Order Comment: FASTI NG: UNKNOWN Performed By: #### 3 75, 294, 31086 #### [facility]-[address], [address] [place] [address] Casting Wheel Operator Helper: Faraz Garcia MD PROGRESSon 06-17-2017 PROGRESS HNO ID: [id number] thor: Sukhwinder Casey: (none)Author Type: PhysicianType: Progress NotesFiled: 06/17/2017 3:24 PMNote Text:Heart and Vascular InstituteRoblovelace rehabilitation hospital and Elayne Gunter Department of Cardiovascular MedicineOUTPATIENT VISIT DATE06/17/17OUTPATIENT VISIT TYPEESTABLISHEDPRIMARY CARE PHYSICIAN:Nirav Cain MD[address] [place] [address]Enwcj: [phone]: [phone] COMPLAINT:Coronary artery diseaseHISTORY OF PRESENT ILLNESS:Abraham Harry [...] in LAD/left circumflex. EF about 40%.- Cardiomyopathy ([facility]) 07/03/2015 EF 35?40%. Nonischemic- CHF (congestive heart failure) ([facility]) 07/11/15 EF 40%. EF improved to 50% on 10/17/15.- COPD (chronic obstructive pulmonary disease) ([facility])- HTN (hypertension)- Obesity- Obstructive sleep apnea- [...] d. @ 46 heart aneurysm- Heart Father [place] x 4ALLERGIES:ALLERGIESNo Known AllergiesMEDICATIONS:SPIRIVA WITH HANDIHALER 18 [...] 121.6 kg (268lb) SpO2 98% BMI 37.38 kg/g1Dudsgaq: Well appearing, in no acute distress. ObeseNeuro: [...] or concerns.Sukhwinder Soto M.D.[facility] Dahl of Cardiovascular MedicineWayne Healthcare Main Campusrt and Vascular InstituteAndrew Ville [address] [address], [place] [address]Kpeznh: [phone] Normal [facility] NM-NM Myocardial Spect Rest/ Stress 1 Day IMPORTon 06-10-2017 NM-NM Myocardial Spect Rest/Stress 1 Day IMPORT Images were obtained outside of [facility] [id number] Normal [facility] US-Echo Transthoracic w/ Con trast IMPORTon 06-10-2017 US-Echo Transthoracic w/ Contrast IMPORT Images were obtained outside of [facility] [id number] Normal [facility] CNOVon 05-31-2017 CNOV Office Visit (CARDFT) ----ABRAHAM HARRY ([id number]) 1960 MDate Time Provider Department05/31/17 3:00 PM SUKHWINDER SOTO During your visit today, we recorded the following information about you: Pulse Respiration Blood pressure Weight 89/minute 18/minute 126/80 119.3 kg Height 1.803 Emi Soto MD 05/31/2017 3:20 PM Critical access hospital and Vascular InstituteRobert and [facility] Department of Cardiovascular MedicineOUTPATIENT VISIT DATE05/31/17OUTPATIENT VISIT TYPEESTABLISHEDPRIMARY CARE PHYSICIAN:Nirav Cain MD[address] YCLCAROMONT REG[facility] [address]Jkhyi: [phone]: [phone] COMPLAINT:Preoperative risk assessmentHISTORY OF PRESENT ILLNESS:Abraham Harry [...] disease inLAD/left circumflex. EF about 40%.- Cardiomyopathy ([facility]) 07/03/2015 EF 35?40%. Nonischemic- CHF (congestive heart failure) ([facility]) 07/11/15 EF 40%. EF improved to 50% on 10/17/15.- COPD (chronic obstructive pulmonary disease) ([facility])- HTN (hypertension)- Obesity- Obstructive sleep apnea- [...] d. 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 ObeseNeuro: [...] or concerns.Sukhwinder Soto M.D.Dale CastanedaDepartment of Cardiovascular MedicineWayne Healthcare Main Campusrt and Vascular Institute[address], [place] [address]Cbhybd: [phone] Referring Provider: NIRAV CAIN SR [[id number]]Allergies As of Date: 05/31/2017(No Known Allergies)Date Reviewed: 05/31/2017Reviewed by: Nico Starkey (Rn) BEN Aguilar - Fully AssessedPrimary Visit Diagnosis:Atherosclerosis of [place] coronary artery of [place] heart without angina pectoris [I25.10] Other Visit Diagnoses:Essential hypertension [I10] Systolic heart failure, unspecified heart failure chronicity (HCC) [I50.20]Order(s):ECHO [783812] Order #: [id number]: 1 FUTURE PHARMACOLOGIC STRESS W/NUC IMAGING [[id number]] Order #: [id number]: 1 NM CARDIAC PERF STRESS/PHARM [[id number]] Order #: [id number] FUTURE HOLTER MONITOR 48 HOUR [[id number]] Order #: [id number] FUTUREPrescriptions as of 05/31/2017 Sig: SPIRIVA WITH [...] HTN (hypertension) [I10] INVALID FOR* Atherosclerosis of [place] coronary artery of na*INVALID FOR* Acute on chronic systolic congestive heart fail*INVALID FOR* Abnormal stress test [R94.39] INVALID FOR* Chronic systolic congestive heart failure (HCC)*INVALID FOR* Dyspnea, unspecified [R06.00] INVALID FOR* Bilateral low back pain with sciatica [M54.40] INVALID FOR* Tachycardia [R00.0] INVALID FOR*Disposition: Return in about 2 weeks (around 06/14/2017).Follow-up and Disposition History RecordedEncounter Number: [id number] Status:Closed by SUKHWINDER SOTO MD on 05/31/17 Normal [facility] PROGRESSon 05-26-2017 PROGRESS HNO ID: [id number] thor: Sukhwinder HampoleService: (none)Author Type: PhysicianType: Progress NotesFiled: 05/31/2017 3:20 PMNote Text:Heart and Vascular InstituteAlpharetta and Elayne Castaneda Department of Cardiovascular MedicineOUTPATIENT VISIT DATE05/31/17OUTPATIENT VISIT TYPEESTABLISHEDPRATRIUM HEALTH CABARRUSRY CARE PHYSICIAN:Nirav Cain MD[address] [place] [address]Ytkfu: [phone]: [phone] COMPLAINT:Preoperative risk assessmentHISTORY OF PRESENT ILLNESS:Abraham Harry [...] in LAD/left circumflex. EF about 40%.- Cardiomyopathy ([facility]) 07/03/2015 EF 35?40%. Nonischemic- CHF (congestive heart failure) ([facility]) 07/11/15 EF 40%. EF improved to 50% on 10/17/15.- COPD (chronic obstructive pulmonary disease) ([facility])- HTN (hypertension)- Obesity- Obstructive sleep apnea- [...] d. 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 ObeseNeuro: [...] to contact us with further questions or concerns.Mumtaz Choe and Elayne CastanedaNea [facility] of Cardiovascular MedicineWayne Healthcare Main Campusrt and Vascular InstituteAvita Health System [facility] Hospital[address], [place] [address]Pnuwhk: [phone] Normal [facility] CNOVon 11-15-2016 CNOV Office Visit (CARDFT) ----ABRAHAM HARRY ([id number]) 1960 MDate Time Provider Department11/15/16 9:30 AM SUKHWINDER SOTO During your visit today, we recorded the following information about you: Pulse Respiration Blood pressure Weight 80/minute 18/minute 147/97 115.2 kg Height 1.803 Emi Soto MD 11/15/2016 9:39 AM Critical access hospital and [facility]ascular [facility] and Elayne Castaneda Department of Cardiovascular MedicineOUTPATIENT VISIT DATE 11/15/16OUTPATIENT VISIT TYPEESTABLISHEDPRIMARY CARE PHYSICIAN:Nirav Cain MD[address] [facility] [address]Zqcfp: [phone]: [phone] COMPLAINT:Preoperative risk assessmentHISTORY OF PRESENT ILLNESS:Abraham Harry [...] disease inLAD/left circumflex. EF about 40%.- Cardiomyopathy ([facility]) 07/03/2015 EF 35?40%. Nonischemic- CHF (congestive heart failure) ([facility]) 07/11/15 EF 40%. 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 ObeseNeuro: [...] or concerns.Sukhwinder Soto M.D.[facility] Dahl of Cardiovascular MedicineWayne Healthcare Main Campusrt and Vascular InstituteAndrew Ville [address] [address], [place] [address]Udpmhs: [phone] Referring Provider: RYLAN HOGAN [[id number]]Allergies As of Date: 11/15/2016(No Known Allergies)Date Reviewed: 11/15/2016Reviewed by: Nico Starkey (Rn) BEN Aguilar - Fully AssessedReason for Visit: Cardiac Clearance [4105]Primary Visit Diagnosis:Atherosclerosis of [place] coronary artery of [place] heart without angina pectoris [I25.10] Other Visit [...] HTN (hypertension) [I10] INVALID FOR* Atherosclerosis of [place] coronary artery of na*INVALID FOR* Acute on chronic systolic congestive heart fail*INVALID FOR* Abnormal stress test [R94.39] INVALID FOR* Chronic systolic congestive heart failure (HCC)*INVALID FOR* Dyspnea, unspecified [R06.00] INVALID FOR* Bilateral low back pain with sciatica [M54.40] INVALID FOR* Tachycardia [R00.0] INVALID FOR*Disposition: Return in about 6 months (around 05/18/2017).Follow-up and Disposition History RecordedEncounter Number: [id number] Status:Closed by SUKHWINDER SOTO MD on 11/15/16 [facility] PROGRESSon 11-10-2016 PROGRESS HNO ID: [id number] thor: Sukhwinder SotoSernaseeme: (none)Author Type: PhysicianType: Progress NotesFiled: 11/15/2016 9:39 AMNote Text:Heart and Vascular InstituteRobert and Elayne [facility] Department of Cardiovascular MedicineOUTPATIENT VISIT DATE 11/15/16OUTPATIENT VISIT TYPEESTABLISHEDPRATRIUM HEALTH CABARRUSRY CARE PHYSICIAN:EDIE Guthrie[address] [place] [address]Owbqk: [phone]: [phone] COMPLAINT:Preoperative risk assessmentHISTORY OF PRESENT ILLNESS:Abraham Harry [...] in LAD/left circumflex. EF about 40%.- Cardiomyopathy ([facility]) 07/03/2015 EF 35?40%. Nonischemic- CHF (congestive heart failure) ([facility]) 07/11/15 EF 40%. 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 ObeseNeuro: [...] 11/10/16 Sinus, occasional PVCs, inferior Q wavesEchocardiogram: 10/16/UMMARY/CONCLUSION:1. Normal left ventricular size with low normal [...] or concerns.Sukhwinder Soto M.D.Dale Dahl of Cardiovascular MedicineWayne Healthcare Main Campusrt and Vascular InstituteStephanie Ville [address], [place] [address]Dkokem: [phone] [facility] Social History Date Type Detail Facility Start: 01-26-2023 Caffeine use Caffeine use -[facility] hio [facility] [address] DO Work Phone: Comment on above: 1 pot decaf coffee d aily; quit 2006 minimal sm oker; 1 pot coffee daily; Start: 01-26-2023 Sex Assigned At F [facility] Start: 01-26-2023 Tobacco smoking stat us [facility] Never smoked tobacco [facility] Work Phone: Start: 01-26-2023 Tobacco use and exposure Smokeless tobacco non-user [facility] Start: 09-01-2019 End: 07-12-2023 Tobacco smoking status NHIS Ex-smoker (finding) [facility] Start: 1960 Sex Assigned At Male F [facility] Start: 1960 Sex Assigned At Not on file [facility] Tobacco smoking status Never [facility] [place] Vital Signs Date Time Vital Sign Value Performing Clinician Facility 09-19-2023 13:25-0400 Body height 180.34 cm MD Marbin Ceballos Work Phone: [facility] 09-19-2023 13:25-0400 Body mass index (BMI) [Ratio] 37 kg/m2 MD Marbin Ceballos Work Phone: [facility] 09-19-2023 13:25-0400 Body temperature 98.1 [degF] MD Marbin Ceballos Work Phone: [facility] 09-19-2023 13:25-0400 Body weight 120.65 kg MD Marbin Ceballos Work Phone: [facility] 09-19-2023 13:25-0400 Diastolic blood pressure 90 mm[Hg] MD Marbin Ceballos Work Phone: [facility] 09-19-2023 13:25-0400 Heart rate 84 /min MD Marbin Ceballos Work Phone: [facility] 09-19-2023 13:25-0400 Respiratory rate 20 /min MD Marbin Ceballos Work Phone: [facility] 09-19-2023 13:25-0400 SaO2% (BldA) [Mass fraction] 98 % MD Marbin Ceballos Work Phone: [facility] 09-19-2023 13:25-0400 Systolic blood pressure 132 mm[Hg] MD Marbin Ceballos Work Phone: [facility] 08-02-2023 13:54-0400 Blood Pressure Location Marbin CEBALLOS [facility] [place] 08-02-2023 13:54-0400 Diastolic blood pressure 82 mm[Hg] Marbin CEBALLOS [facility] [place] 08-02-2023 13:54-0400 Heart rate 72 /min Marbin CEBALLOS [facility] [place] 08-02-2023 13:54-0400 Respiratory rate 16 /min Marbin CEBALLOS [facility] [place] 08-02-2023 13:54-0400 Systolic blood pressure 122 mm[Hg] Marbin CEBALLOS [facility] [place] 07-12-2023 13:39-0400 Blood Pressure Location Marbin NILL [facility] [place] 07-12-2023 13:39-0400 Diastolic blood pressure 88 mm[Hg] Marbin NILL [facility] [place] 07-12-2023 13:39-0400 Heart rate 72 /min Marbin NILL [facility] [place] 07-12-2023 13:39-0400 Respiratory rate 16 /min Marbin NILL [facility] [place] 07-12-2023 13:39-0400 Systolic blood pressure 126 mm[Hg] Marbin NILL [facility] [place] 03-22-2023 13:15-0500 Body height 180.34 cm Chan Parrishmeng Other [employer] Other 03-22-2023 13:15-0500 Body mass index (BMI) [Ratio] 36.51 kg/m2 Chan Parrishmeng Other [employer] Other 03-22-2023 13:15-0500 Body temperature 98.1 [degF] Chan Taylor Other [employer] Other 03-22-2023 13:15-0500 Body weight 118.75 kg Chan Parrishmeng Other [employer] Other 03-22-2023 13:15-0500 Diastolic blood pressure 80 mm[Hg] Chan Parrishmeng Other [employer] Other 03-22-2023 13:15-0500 Respiratory rate 20 /min Chan Parrishmeng Other [employer] Other 03-22-2023 13:15-0500 SaO2% (BldA) [Mass fraction] 98 % Chan Taylor Other [employer] Other 03-22-2023 13:15-0500 Systolic blood pressure 140 mm[Hg] Chan Taylor Other [employer] Other 01-27-2023 08:32-0400 Body height 180.34 cm Nirav P House Work Phone: [facility] Work Phone: 01-27-2023 08:32-0400 Body mass index (BMI) [Ratio] 35.71 kg/m2 Inrav P House Work Phone: [facility] Work Phone: 01-27-2023 08:32-0400 Body surface area Derived from formula 2.34 m2 Nirav P House Work Phone: [facility] Work Phone: 01-27-2023 08:32-0400 Body weight 116.12 kg Nirav P House Work Phone: [facility] Work Phone: 01-27-2023 08:32-0400 Diastolic blood pressure 78 mm[Hg] Nirav P House Work Phone: [facility] Work Phone: 01-27-2023 08:32-0400 Heart rate 80 /min Nirav P House Work Phone: [facility] Work Phone: 01-27-2023 08:32-0400 Systolic blood pressure 110 mm[Hg] Nirav P House Work Phone: [facility] Work Phone: 01-26-2023 07:31-0400 Body temperature 98.2 [degF] Corie Bonilla MD Work Phone: [facility] 01-26-2023 07:31-0400 Diastolic blood pressure 82 mm[Hg] Corie Bonilla MD Work Phone: [facility] 01-26-2023 07:31-0400 Heart rate 74 /min Corie Bonilla MD Work Phone: [facility] 01-26-2023 07:31-0400 Respiratory rate 20 /min Corie Bonilla MD Work Phone: [facility] 01-26-2023 07:31-0400 SaO2% (BldA) [Mass fraction] 97 % Corie Bonilla MD Work Phone: [facility] 01-26-2023 07:31-0400 Systolic blood pressure 127 mm[Hg] [facility] MD [facility] 04-15-2022 15:07-0500 Body height 179.07 cm [employer] Work Phone: [facility] 250 DO Work Phone: 04-15-2022 15:07-0500 Body mass index (BMI) [Ratio] 37.8 kg/m2 [employer] Work Phone: [facility] 250 DO Work Phone: 04-15-2022 15:07-0500 Body surface area Derived from formula 2.37 m2 Nirav P Hunch Work Phone: [facility] 250 DO Work Phone: 04-15-2022 15:07-0500 Body weight 121.2 kg Nirav P Hunch Work Phone: [facility] 250 DO Work Phone: 04-15-2022 15:07-0500 Diastolic blood pressure 80 mm[Hg] Nirav P Hunch Work Phone: [facility] 250 DO Work Phone: 04-15-2022 15:07-0500 Heart rate 96 /min Nirav P Hunch Work Phone: [facility] 250 DO Work Phone: 04-15-2022 15:07-0500 Systolic blood pressure 110 mm[Hg] Nirav P House Work Phone: [facility] 250 DO Work Phone: 04-16-2021 15:40-0500 Body height 180.34 cm Gabriel M Hoy Work Phone: [facility] 250 DO Work Phone: 04-16-2021 15:40-0500 Body mass index (BMI) [Ratio] 37.94 kg/m2 Gabriel M Hoy Work Phone: [facility] 250 DO Work Phone: 04-16-2021 15:40-0500 Body surface area Derived from formula 2.4 m2 Gabriel M Hoy Work Phone: [facility] 250 DO Work Phone: 04-16-2021 15:40-0500 Body weight 123.38 kg Gabriel M Hoy Work Phone: [facility] 250 DO Work Phone: 04-16-2021 15:40-0500 Diastolic blood pressure 84 mm[Hg] Gabriel M Hoy Work Phone: [facility] 250 DO Work Phone: 04-16-2021 15:40-0500 Heart rate 90 /min Gabriel M Hoy Work Phone: [facility] 250 DO Work Phone: 04-16-2021 15:40-0500 Systolic blood pressure 128 mm[Hg] Gabriel M Hoy Work Phone: [facility] 250 DO Work Phone: Functional Status Date Assessment Result Facility 08-02-2023 Functional Status N/A [facility] 07-12-2023 Functional Status N/A [facility] 01-19-2023 Functional Status N/A [facility] Clinical Notes 02-25-2016 to 07-12-2023 Note Date & Type Note Facility 07-12-2023 Note Chief Complaint consultation for ventral hernia HPI Staff 62 year old male presents on consultation from Dr. Cani for ventral hernia. Reports noting bulge above [...] Tonsillectomy. Medications albuter (more content not included)... [facility] Comment on above: Result Comment: Elec tronically Signed By: LIN FENTON, Marbin Chaudhari\Date and Time Signed: 07/12/23 20:10 EDT 07-12-2023 Evaluation + Plan note Diagnostic Tests PendingCreatinine 07/12/23 General Surgery [facility] 03-22-2023 Evaluation note Encounter Date Diagnosis Assessment Notes Mar, Asthma with COPD (ICD-10 - J44.9) please arrange for dupixent if qualified [employer] Other 11-21-2023 Evaluation note* Encounter Date Diagnosis Assessment Notes Treatment Notes Treatment Clinical Notes Mar, Asthma with COPD (ICD-10 - J44.9) please arrange for dupixent if qualified Mar, Severe persistent asthma without complication (ICD-10 - J45.50) [employer] Other 09-27-2023 History of Present illness Narrative* Jennifer Melgar - 01/26/2023 5:38 PM EDT CLINICAL PHARMACY NOTE: MEDS TO BEDS Total # of Prescriptions Filled: 1 The following medications were delivered to the patient: cephalexin Additional Documentation: Pt signed form- filed sheet * Sariah Nichols MD - 01/26/2023 12:10 PM EDT Images from the original note were not included. [facility] Office: [phone] Rajat Worley DO, Nirav Leiva DO, Siva Ortiz DO, Amadou Robles DO, Travis Quinones MD, Urvashi Downs MD, Mickie Singletary MD, Corie Bonilla MD, Maynor Hurley MD, Sariah Nichols MD, Eliot ClineDO, Faiza Win MD, Luis Booth DO, Harsha Davis MD, Mason Sauceda MD, Marbin Worley DO, Jie Allen MD, Sean Linares DO, Jolene Fernández MD, Jhoana Fernandez MD, MD Jana, Shon Aranda MD, Sai Benitez MD, Merritt Liao MD, Elmo Toledo MD, Josie Harper MD, Nico Aldana DO, Anoop Blanco MD, Jaylon Galaviz MD, Chadd Mcmanus MD,Cass Granado, CUSTOMER SERVICE DRIVER, Billie Hilliard, CUSTOMER SERVICE DRIVER,, Abraham Foote, CUSTOMER SERVICE DRIVER, Radha Arredondo, DNP, Keke Spencer, CUSTOMER SERVICE DRIVER, Ni Kowalski, CUSTOMER SERVICE DRIVER, Jeana Carrizales CUSTOMER SERVICE DRIVER, Milly Harrell, CUSTOMER SERVICE DRIVER, Arleen Panchal, CUSTOMER SERVICE DRIVER, Elvira Godwin, CUSTOMER SERVICE DRIVER, Edelmira Catalan, CHAIN TENDER, Maribeth Oswald, CUSTOMER SERVICE DRIVER, Lisa Pacheco, CUSTOMER SERVICE DRIVER [facility] IN-PATIENT SERVICE [facility] Progress Note 01/26/2023 1:43 PM Name: Abraham Harry Acct: [id number] Room: 034/0345-02 Day: 1 Admit Date: 01/25/2023 6:20 PM [...] hypertension, hypercholesterolemia, questionable CAD (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 Ceballos on 01/10. Patient presented to [facility] for acute onset abdominal pain that [...] didshow nephrolithiasis. Discussed with GI team at [facility], transferring patient for possible CBD stone [...] , PHART , PH , POCPCO2 , CIK2XCH , PCO2 , POCPO2 , PO2ART , PO2 , POCHCO3 , PHJ9HQD , HCO3 , NBEA , PBEA , BEART , BE , THGBART , THB , AWS7CVZ , JLCF6NCL , Q1BBEPRS , O2SAT , FIO2 Lab Results Component [...] of bowel resection 01/25/2023 Yes Plan: Abdominal zoic-rprpnmoc-vrayiakvn concern for nephrolithiasis -patient thinks that he [...] 01/26/2023 1:43 PM [facility]* Discharge Instructions* Sariah Nichols MD - 01/26/2023 1:41 PM EDT Do not take atorvastatin/Lipitor for 1 week. Follow-up with PCP Check BP before taking meds [facility] note* Encounter Date Diagnosis Assessment Notes Treatment Notes Treatment Clinical Notes Oct, Asthma with COPD (ICD-10 - J44.9) [employer] Other 03-30-2022 Evaluation note* Encounter Date Diagnosis Assessment Notes Treatment Notes Treatment Clinical Notes Jun, Asthma with COPD (ICD-10 - J44.9) Jun, Coronary artery disease involving [place] heart, unspecified vessel or lesion type, unspecified whether angina present (ICD-10 - I25.10) Jun, Orthostatic lightheadedness (ICD-10 - R42) [facility] Other 07-01-2017 History general Narrative - Reported* Type Description Date Medical History COPD Medical History heart disease Medical History congestive heart failure Medical History asthma Surgical History rotator cuff tear repair 10/2016 Surgical History Foot Surgery 2015 Surgical History hernia repair 2013 Hospitalization History See Above [employer] Other 10-26-2016 History of Present illness Narrative* Patient returns in follow-up of problems as noted. In the interim he has begun to develop anginal chest pain. He describes retrosternal pain brought about by aerobic activity and relieved with rest. Review of chart demonstrates that he had a coronary angiogram 7 years ago in [facility] where he had moderate disease treated medically. [...] proceed with stress testing and follow-up thereafter. [facility] Work Phone: Evaluation + Plan note No data available for this section General Surgery [place] Evaluation + Plan note Future Appointments Appointment Date:10/05/2023 04:00:00 PM Scheduled Provider:Marbin CEBALLOS MD Location:[facility] Appointment Type: Post Op 15 [facility] [place] Evaluation noteNo InformationNort [employer] Other Evaluation noteNo assessment information available [facility] Work Phone: Evaluation note* Diagnosis Abdominal [...] biliary tract documented in this encounter [facility] Diagnosis Onset Date Resolution Status Asthma, severe persistent ac [place] [facility] Work Phone: History of Present illness Narrative* [...] diet lifestyle modification exercise and weight loss. -[facility] 250 DO Work Phone: History of Present [...] before without change and follow-up next year. -[facility] 250 DO Work Phone: Hospital Discharge instructions No data available for this section General Surgery [place] Progress note No data available for this section General Surgery [place] Summary Purpose Family History No Family History [...] section and content) DATE CREATED AUTHOR 10/21/2017 [facility] DATE CREATED AUTHOR AUTHOR'S ORGANIZ ATION 04/08/2020 [facility] DATE CREATED AUTHOR AUTHOR'S ORGANIZ ATION 02/22/2022 [facility] DATE CREATED AUTHOR AUTHOR'S ORGANIZ ATION 01/08/2023 [facility] DATE CREATED AUTHOR AUTHOR'S ORGANIZ ATION 02/03/2023 [facility] DATE CREATED AUTHOR AUTHOR'S ORGANIZ ATION 02/03/2023 [employer] DATE CREATED AUTHOR AUTHOR'S ORGANIZ ATION 02/11/2023 [facility] DATE CREATED AUTHOR AUTHOR'S ORGANIZ ATION 09/17/2023 [facility] DATE CREATED AUTHOR AUTHOR'S ORGANIZ ATION 10/07/2023 [facility] DATE CREATED AUTHOR AUTHOR'S ORGANIZ ATION [...] Member Role Status Dates Jacqueline Anthony APRN ACNP- Attending Provider Active Start: September 19, 2023 [...] Elvira Su RN)[phone] (New Bag - Provider: Elvria Su RN)[phone] (Stopped - Provider: Lisa Butler [...] BE BASED ON THE PRIMARY CLINICAL RECORDS. [employer] provides no warranty or guarantee of the accuracy or completeness of information in this document.
[2023-10-29 09:49] LABS: Basophils Percent Auto 0.5 % (0.2-2.0); Eosinophils Absolute Auto 0.3 10^3/uL (0.0-0.7); Eosinophils Percent Auto 3.8 % (0.9-7.0); Hemoglobin 12.8 g/dL (14.0-18.0); Immature Granulocytes Abs Auto 0.04 10^3/uL (0.00-0.03); Immature Granulocytes Pct Auto 0.5 % (0.0-0.5); Lymphocytes Absolute Auto 1.4 10^3/uL (1.2-3.8); Lymphocytes Percent Auto 17.1 % (20.5-60.0); Mean Corpuscular HGB Conc 32.8 g/dL (29.9-35.2); Mean Corpuscular Hemoglobin 30.4 pg (25.9-34.0); Mean Corpuscular Volume 92.6 fL (80.0-94.0); Mean Platelet Volume 10.4 fL (9.5-13.5); Monocytes Absolute Auto 0.4 10^3/uL (0.3-0.8); Monocytes Percent Auto 5.3 % (1.7-12.0); Neutrophils Absolute Auto 5.9 10^3/uL (1.4-6.5); Neutrophils Percent Auto 72.8 % (43.0-75.0); Platelet Count 222 10^3/uL (150-450); Red Blood Count 4.21 10^6/uL (4.70-6.10); Red Cell Distribution Width 13.2 % (11.0-15.0); White Blood Count 8.1 10^3/uL (4.0-11.0)
[2023-10-29 10:22] LABS: Alanine Aminotransferase 26 U/L (16-63); Albumin Globulin Ratio 1.1; Albumin Level 3.8 g/dL (3.4-5.0); Alkaline Phosphatase 101 U/L (46-116); Anion Gap 14.7; Aspartate Amino Transferase 23 U/L (15-37); BUN Creatinine Ratio 17.2; Bilirubin Total 1.2 mg/dL (0.2-1.0); Calcium 9.1 mg/dL (8.5-10.1); Chloride 103 mmol/L (98-107); Chol HDL Ratio 2.6; Cholesterol 222 mg/dL (<=200); Estimated GFR (African America >60 (>=60); Estimated GFR (Non-African Ame >60 (>=60); Globulin 3.5 g/dL; Glucose 116 mg/dL (74-106); HDL Cholesterol 85 mg/dL (40-60); Potassium 3.7 mmol/L (3.5-5.1); Sodium 139 mmol/L (136-145); Total Protein 7.3 g/dL (6.4-8.2); Triglycerides 175 mg/dL (<=150)
== END 2023-10-29 09:25 | disposition home or self-care (01) ==
LOC: LAB 09:24
PROVIDERS: PCP Family Medicine; Visit Provider Family Medicine
DX: Z00.00 Encounter for general adult medical examination without abnormal findings (principal); I25.10 Atherosclerotic heart disease of native coronary artery without angina pectoris; I10 Essential (primary) hypertension; J44.9 Chronic obstructive pulmonary disease, unspecified; Z12.5 Encounter for screening for malignant neoplasm of prostate
CPT/HCPCS: 36415; 80053; 80061; 85025; G0103

== ENCOUNTER 2024-07-03 13:52 | Outpatient (OUT) | payer OTHER, SELFPAY ==
--- NOTE | 2024-07-03 14:04 | XR_ITS ---
[facility] [place] [id number] Patient Name: ALMA HARRY MRN: [id number] date: 1960 Sex: M Assigned Patient Location: [facility] Current Patient Location: [facility] Accession/Order Number: [id number] Exam Date: 07/03/2024 15:51 Report Date: 07/03/2024 15:52 At the request of: BETH PHELPS MD Procedure: XR chest 2V PA AND LATERAL CHEST: CLINICAL HISTORY: Productive cough COMPARISON: 10/17/2023 There is shallow inspiration. There is no developing consolidation, effusion or pneumothorax. The cardiac, hilar and mediastinal silhouettes are within normal limits. There is no vascular congestion. The visualized bony thorax is intact. Tiny endplate spurs and subtle dextroscoliotic curvature are present. XR/XR chest 2V IMPRESSION: NO ACUTE CARDIOPULMONARY ABNORMALITY. Impression dictated by: Marisela Galo M.D.07/03/2024 3:52 PM Dictation Location[facility] Electronically authenticated by: [id number] Y Date: 07/03/2024 15:52
--- OUTSIDE RECORDS SUMMARY | 2024-07-03 14:11 | XMS_ITS | CCD ---
Author Organization [facility] Care Team Providers Care Medical Staff Services Manager Name Role Phone HAMPOLE, SUKHWINDER Unavailable Unavailable POCRYLAN DICKSON Unavailable Unavailable HAMPOLE, SUKHWINDER Unavailable Unavailable HOUSE SR, NIRAV MARIA Unavailable Unavai lable HAMPOLE, SUKHWINDER Unavailable Unavailable HOUSE SR, NIRAV MARIA Unavailable Unavai lable Unavailable Unavailable Gabriel Munoz Unavailable Chan Taylor Unavailable ANT, DR GASTELUM Primary Care Unavailable BRITTNEY, DR LORETTA Carrillo Admitting Unavailable BRITTNEY, DR LORETTA Carrillo Attending Unavailable TAYLER, JACOBY WASHINGTON Consulting Unavailable ARAMIS, EDIN Consulting Unavailable ANT, DR GASTELUM Admitting Unavailable HOUSE, DR GASTELUM Attending Unavailable HOUSE, DR GASTELUM Primary Care Unavailable HOUSE, DR GASTELUM Admitting Unavailable HOUSE, DR GASTELUM Attending Unavailable HOUSE, DR GASETLUM Primary Care Unavailable HOUSE, DR GASTELUM Consulting Unavailable Nirav Cain Unavailable DO Nirav Cain Primary Care Provider MD Chan Taylor Attending Provider [phone] Ant, Dr. Nirav Maria Primary Care Unava [...] Stevens Attending Unavailable NICHOLS, SARIAH Attending Unavailable BETSYEINMichelle, BLANDON Consulting Unavailable PAYAMADOU Referring Unavailable NICHOLS, SARIAH Admitting Unavailable House, DO Gastelum Primary Care Provider MD Chan Taylor Attending Provider NIRAV CAIN Primary Care Physician [phone] MD Marbin Ceballos Attending Provider [phone] NIRAV CAIN Referring Unavailable NILL, Marbin Carrillo Attending Unavailable NILL, Marbin Carrillo Attending Unavailable NILL, Marbin Carrillo Attending Unavailable NILL, Marbin Carrillo Attending Unavailable NILL, Marbin Carrillo Attending Unavailable NILL, Marbin Carrillo Attending Unavailable NILL, Marbin Carrillo Attending Unavailable House, DO Gastelum Primary Care Provider [phone] Ly, DO Harriet Garzon Attending Provider Samsa, DO Saleem Mayers Attending Provider Nirav Cain Primary Care Unavailable Samsa, Saleem P Admitting Unavailable Samsa, Saleem P Attending Unavailable House, Nirav Primary Care Unavailable Chaban, Kamal Admitting Unavailable Chaban, Chan Attending Unavailable House, Nirav Primary Care Unavailable Chaban, Kamal Admitting Unavailable Chaban, Weslyal Attending Unavailable House, Nirav Primary Care Unavailable Ly, Harriet Garzon Admitting Unavailable Ly, Harriet Garzon Attending Unavailable Nill, Marbin Carrillo Admitting Unavailable Nill, Marbin Carrillo Attending Unavailable House Nirav LADD Primary Care Provider REY LEIVA Attending Unavailable HOUSE, NIRAV Mayers Primary Care Unavailable NICANOR CALVO Attending Unavailable REY LEIVA Referring Unavailable HOUSE, NIRAV P Primary Care Unavailable HOUSE, NIRAV P Primary Care Unavailable HOUSE, DO NIRAV Mayers Attending Unavailable HOUSE, DO NIRAV P Attending Unavailable HOUSE, NIRAV P Primary Care Unavailable HOUSE, DO NIRAV Mayers Attending Unavailable HOUSE, NIRAV Mayers Primary Care Unavailable Allergies Allergy Classification Reported Allergen(s) Allergy Type Date of Onset Reaction(s) Facility (6 sources) Adhesive Tape; Translations: [Tape] Drug allergy irritation [facility] (2 sources) No Known Medication Allergies; Translations: [No Known Medication Allergies] Propensity to adverse reactions (disorder) [facility] Repository Medications Current Medications Medication Drug Class(es) Dates Sig (Normalized) Sig (Original) Acetaminophen (1 source) Start: 01-25-2023 acetaminophen (TYLENOL) tablet 650 mg albuterol 0.83 mg/ml inhalation solution (20 sources) beta2-Adrenergic Agonist Start: 12-26-2023 Albuterol Sulfate 2.5 mg /3 mL (0.083 %) solution for nebulization Active 2.5 MG CNTNEBULIZ Four times daily as needed for Shortness Of Breath December 26, 2023 1:03pm Start: 07-07-2023 take 2.5 mg by inhal ation every six hours albuterol 0.083% Inh Daniella 3 mL 2.5 mg, 3 mL, NEB, q6hr Shortness of breath or wheezing, Refill(s) 0 Start Date: 07/07/23 Status: Ordered Start: 01-26-2023 2.5 mg, Nebuli zation, EVERY 4 HOURS PRN, Starting on Tue01/26/23 at 1341, Until Discontinued, Wheezing Initiate RT Bronchodilator Protocol: Yes - Inpatient Protocol Start: 11-25-2020 albuterol (Pro Air HFA) 90 mcg/actuation inhaler Inhale. As needed 11/25/2020 Active Start: 11-25-2020 ProAir HFA 108 (90 Base) MCG/ACT AERS as needed Quantity: 0 Refills: 0 Ordered: 17-Feb-2021 DO Start : 25-Nov-2020 Active Start: 09-16-2020 albuterol 2.5 mg /3 mL (0.083 %) nebulizer solution Inhale every 6 hours if needed. 09/16/2020 Active Start: 08-31-2019 take 1 puff(s) by in halation every six hours as needed Albuterol Sulfate 90 mcg/actuation HFA aerosol inhaler Active 2 PUFF INHALATION Q6H as needed for Shortness Of Breath August 30, 2019 11:00pm Start: 08-31-2019 End: 12-26-2023 Albuterol Sulfate 2.5 mg /3 mL (0.083 %) solution for nebulization Discontinued 1 VIAL CNTNEBULIZ Twice daily August 30, 2019 11:00pm December 26, 2023 1:04pm Start: 08-31-2019 Albuterol Sulf ate Active 1 VIAL CNTNEBULIZ Q6H August 31, 2019 12:00am Start: 07-08-2015 [...] (20 sources) HMG-CoA Reductase Inhibitor Start: 09-01-2019 End: 01-16-2025 take 1 tablet by mouth once daily Atorvastatin 80 mg tablet Active 80 MG PO Daily August 31, 2019 11:00pm Start: 08-31-2019 End: 09-01-2019 take 1 tablet by mouth once daily in the evening Atorvastatin (Lipitor) 40 mg Tablet Discontinued 40 MG PO Every evening August 30, 2019 11:00pm September 01, 2019 10:57am benralizumab (FASENRA SUBQ) (1 source) inject 1 dose by subcutaneous injection every 30 days benralizumab (FASENRA SUBQ) Inject 1 Dose under the skin every 30 (thirty) days. Active budesonide 0.25 mg/ml inhalation suspension (3 sources) Corticosteroid Start: 03-22-20 23 take 2 mL by inhalation twice daily Budesonide 0.5 MG/2ML 2 ml Inhalation Twice a day for 30 day(s) Mar, Active busPIRone hydrochloride 15 mg oral tablet (6 sources) Start: 01-09-20 24 take 1 tablet by mouth three times daily Buspirone 15 mg tablet Active 15 MG PO Three times daily March 26, 2024 12:00am Start: 01-09-2024 take 1 tablet by robert th every twelve hours busPIRone (Buspar) 10 mg tablet Take 1 tablet (10 mg) by mouth every 12 hours. 01/09/2024 Active Start: 12-26-2023 End: 03-26-2024 take 1 tablet by mouth twice daily Buspirone 10 mg tablet Discontinued 10 MG PO Twice daily December 25, 2023 11:00pm March 26, 2024 2:10pm cephalexin 500 mg oral capsule (3 sources) Cephalosporin Antibacterial Start: 01-26-2023 End: 01-29-2023 take 1 capsule by mouth three times daily cephALEXin (KEFLEX) 500 MG capsule Take 1 capsule by mouth 3 times daily for 3 days 9 capsule 0 01/26/2023 01/29/2023 Active cholecalciferol 0.125 mg oral tablet (17 sources) Vitamin D Start: 08-31-2019 take 1 tablet by mouth once daily in the morning Cholecalciferol (Vitamin D3) (Vitamin D3) 125 mcg (5,000 unit) Tablet Active 125 MCG PO Every morning August 30, 2019 11:00pm take 1 capsule by mouth once david ly cholecalciferol (Vitamin D-3) 125 MCG (5000 UT) capsule Take 1 capsule (125 mcg) by mouth once daily. Active clopidogrel 75 mg oral tablet (20 sources) P2Y12 Platelet Inhibitor Start: 09-01-2019 End: 01-16-2025 take 1 tablet by mouth once daily Clopidogrel 75 mg Tablet Active 75 MG PO Daily August 31, 2019 11:00pm codeine phosphate 2 mg/ml / promethazine hydrochloride [...] 0.9 % 10 mL injection Fluticasone Propion-Salmeterol (11 sources) Corticosteroid, beta2-Adrenergic Agonist Start: 11-28-2023 Fluticasone Propion-Salmetero l (Wixela Inhub) 500-50 mcg/dose blister with device Active 1 INH INHALATION Twice daily November 27, 2023 11:00pm Start: 11-28-2023 Fluticasone Pr opion-Salmeterol (Wixela Inhub) 500-50 mcg/dose blister with device Active 1 INH INHALATION Twice daily November 28, 2023 12:00am Start: 09-19-2023 End: 11-28-2023 Fluticasone Propion-Salmeter ol (Wixela Inhub) 250-50 mcg/dose blister with device Discontinued 1 INH INHALATION Twice daily September 18, 2023 11:00pm November 28, 2023 7:26am Start: 09-19-2023 End: 11-28-2023 Fluticasone Propion-Salmeter ol (Wixela Inhub) 250-50 mcg/dose blister with device Discontinued 1 INH INHALATION Twice daily September 19, 2023 12:00am November 28, 2023 8:26am Start: 09-19-2023 Fluticasone Pr opion-Salmeterol (Wixela Inhub) 250-50 mcg/dose blister with device Active 1 INH INHALATION Twice daily September 19, 2023 12:00am take 1 puff(s) by [facility] twice daily fluticasone propion-salmeteroL (Advair Diskus) 500-50 mcg/dose diskus inhaler Inhale 1 puff 2 times a day. Rinse mouth with water after use to reduce aftertaste and incidence of candidiasis. Do not swallow. Active losartan potassium 100 mg oral tablet (20 sources) Angiotensin 2 Receptor Avani Start: 06-25-2024 take 1 tablet by mouth once daily Losartan 100 mg tablet Active 100 MG PO Daily June 25, 2024 12:00am Start: 08-13-2020 End: 01-16-2025 take 1 tablet by mouth once daily Losartan 50 mg tablet Discontinued 50 MG PO Daily November 27, 2023 11:00pm June 25, 2024 2:38pm 100 ml magnesium sulfate 10 mg/ml injection (1 source) Start: 01-25-2023 take 1000 mg intravenously every hour as needed 1,000 mg, IntraVENous, at 100 mL/hr, Adm inister over 1 Hours, PRN, Other, Per IV Magnesium Replacement Protocol, Starting on Tue01/25/23 at 1835 Mg Lab Replacement Action 1.4- 1.6 1 gram IVPB x 2 doses &nb sp; (2 gram Total) 1.0-1.3 1 gram IVPB x 4 doses &nb sp; (4 gram Total) <1.0 CALL PHYSICIAN and &n bsp; 1 gram IVPB x 4 doses (4 gram Total) Infuse at 1 gram/hr Repeat Mag level next AM Protocol not for use in Patients with CrCl<30ml/min 24 hr metoprolol succinate 50 mg extended release oral tablet (20 sources) b e t a - A d r e n e r g i c B l o c k e r Start: 01-26-2023 take 50 mg by mouth once daily 50 mg, Oral, DAILY, First dose on Tue at 1400, Until Discontinued Do not crush or chew. Start: 08-31-2019 End: 01-16-2025 take 1 tablet by mouth once daily in the morning Metoprolol Succinate 50 mg Tablet Extended Release 24 Hr Active 50 MG PO Every morning August 30, 2019 11:00pm ondansetron (ZOFRAN-ODT) disintegrating tablet 4 mg (1 [...] M) extended release tablet 40 mEq predniSONE 20 mg oral tablet (14 sources) Start: 02-13-2024 End: 05-28-2024 Prednisone 20 mg tablet Acti ve 20 MG PO As Directed as needed for wheezing May 28, 2024 11:14am 3 tabs x 3 days, then 2 tabs x 3 days, then 1 tab x 3 days Start: 07-26-2023 End: 09-12-2023 Prednisone 10 mg tablet Disc ontinued 10 MG PO .COMPLEX 28 July 25, 2023 11:00pm September 12, 2023 12:47pm 10 mg orally 4 tabs x 4 [...] hrs Active revefenacin 0.0583 mg/ml inhalation solution (20 sources) Start: 07-18-2023 End: 05-17-2024 Revefenacin (Yupelri) 175 mcg/3 mL solution for nebulization Active 0 .ROUTE .COMPLEX May 17, 2024 12:17pm USE 1 VIAL IN NEBULIZER DAILY Start: 07-11-2023 End: 07-18-2023 Revefenacin (Yupelri) 175 mc g/3 mL solution for nebulization Discontinued 175 MCG INHALATION Daily July 10, 2023 11:00pm July 18, 2023 11:00am DX COPD j44.9 Start: 08-13-2020 take 175 ug by inhal ation once daily Yupelri 175 mcg, Inhalation, Daily, Refills(s) 0, Shortness of breath or wheezing Start Date: 08/13/20 Status: Ordered Start: 12-19-2019 take 3 mL by inhalat ion once daily Yupelri 175 MCG/3ML 3 ml Inhalation daily DX J44.9 COPD Nov, Active revefenacin (Yup elri) 175 mcg/3 mL nebulizer solution Take 3 mL (175 mcg) by nebulization once daily. Active Yupelri 175 MCG/ 3ML Inhalation Solution as directed Quantity: 0 Refills: 0 Ordered: 15-Apr-2022 DO Active take 3 mL by inhalat ion once daily revefenacin (YUPELRI) 175 MCG/3ML SOLN Inhale 3 mLs into the lungs daily 0 Active Symbicort 160/4.5 inhalation aerosol with adapter (1 source) Start: 11-10-2016 take 2 puff(s) by inhalation twice daily Symbicort 160/4.5 inhalation aerosol with adapter 2 puff(s), Inhalation, BID, COPD Start Date: 11/10/16 Status: Ordered Umeclidinium (1 source) Anticholinergic Start: 06-25-2024 take 62.5 ug by inhalation once daily Umeclidinium (Incruse Ellipta) 62.5 mcg/actuation blister with device Active 1 INH INHALATION Daily June 25, 2024 12:00am Wixela Inhub (4 sources) Start: 07-12-2023 take 1 puff(s) by inhalation twice daily Wixela Inhub 1 puff, Inhalation, BID, Refill(s) 0 Start Date: 07/12/23 Status: Ordered Completed/Discontinued Medications Medication Drug Class(es) Dates Sig (Normalized) Sig (Original) aspirin 81 mg chewable tablet (20 sources) Platelet Aggregation Inhibitor, Nonsteroidal Anti-inflammatory Drug Start: 08-31-2019 End: 09-19-2023 Aspirin (Lexx Chewable Aspirin) 81 mg Tablet,Chewable Discontinued 81 MG PO Every morning September 01, 2019 10:42am September 19, 2023 12:18pm continue daily ASA through 09/21/19 then discontinue per neurology orders 1 ml benralizumab 30 mg/ml auto-injector (3 sources) Interleukin-5 Receptor alpha-directed Cytolytic Antibody Start: 02-09-2024 End: 02-13-2024 Benralizumab (Fasenra Pen) 30 mg/mL auto-injector Discontinued 30 MG SUBCUT EVERY 4 WEEKS 4 90 February 13, 2024 8:27am February 13, 2024 8:30am 30mg/1 ml SQ monthly x 3 doses , then 30mg/1 ml every 8 weeks DX J45.50 120 actuat budesonide 0.16 mg/actuat / formoterol fumarate 0.0045 mg/actuat metered dose inhaler (20 sources) Corticosteroid, beta2-Adrenergic Agonist Start: 09-19-2023 End: 11-28-2023 take 2 puff(s) by mouth twice daily Budesonide-Formote rol 160-4.5 mcg/actuation HFA aerosol inhaler Discontinued 0 .ROUTE .COMPLEX 30.6 September 19, 2023 2:56pm November 28, 2023 7:25am INHALE 2 PUFFS BY MOUTH TWICE DAILY Start: 09-19-2023 End: 09-19-2023 Budesonide-Formoterol (Symbi sherwin) 160-4.5 mcg/actuation HFA aerosol inhaler Discontinued 2 INH INHALATION Twice daily 1 September 18, 2023 11:00pm September 19, 2023 2:59pm Start: 08-31-2019 End: 09-19-2023 take 1 puff(s) by inhalation twice daily Budesonide-Formoterol (Symbicort) 160-4.5 mcg/actuation Hfa Aerosol Inhaler Discontinued 2 PUFF INHALATION Twice daily August 30, 2019 11:00pm September 19, 2023 12:18pm End: 04-13-2024 budesonide-formoteroL (Symbi sherwin) 160-4.5 mcg/actuation inhaler Inhale. As directed 04/13/2024 Discontinued (Therapy completed) budesonide-formo teroL (Symbicort) 160-4.5 mcg/actuation inhaler Inhale. As directed Active take 2 puff(s) by in halation twice daily Symbicort 160-4.5 MCG/ACT 2 puffs Inhalation Twice a day Active Symbicort 160-4. 5 MCG/ACT Inhalation Aerosol USE DIRECTED. Quantity: 0 Refills: 0 Ordered: 16-Apr-2021 DO Active 0.4 ml enoxaparin sodium 100 mg/ml prefilled [...] 01-31-2017 Depo-Medrol 80 mg Jan, 60 mg 1 ml morphine sulfate 2 mg/ml cartridge [...] specifically ordered. nitroglycerin 0.4 mg sublingual tablet (20 sources) Nitrate Vasodilator Start: 04-16-2021 End: 09-19-2023 Nitroglycerin (Nitrostat) 0.4 mg tablet, sublingual Discontinued MG SUBLINGUAL As Directed September 11, 2023 11:00pm September 19, 2023 12:19pm FreeTextSig: as directed Sublingual; Note: Source Status: Taking; Provider: Brandon Giles ( ) Nitrostat 0.4 MG as directed Sublingual Active polyethylene glycol 3350 19178 mg powder for oral solution (1 source) [...] mL; Midline or Central Line = 10 mL/lumen.&nbsp ; If following IV push medication, administer flush at same rate as the IV push. Flush volume is determined by type of infusion therapy being given. For non-viscous solutions use: Peripher al IV = 5 mL Midline or Central Line = 10 mL/lumen &nbs p;For viscous solutions (i.e. blood components, parenteral nutrition, contrast media, or after obtaining blood sample) use: Peripher al IV = 10 mL Midline or Central [...] Line Care, After every IV line use spironolactone 50 mg oral tablet (20 sources) Aldosterone Antagonist Start: 07-08-2015 End: 03-26-2024 take 1 tablet by mouth once daily in the morning Spironolactone 50 mg Tablet Discontinued 50 MG PO Every morning August 30, 2019 11:00pm March 26, 2024 2:14pm technetium mebrofenin (CHOLETEC) injection 3.5 millicurie (1 source) Start: 01-26-2023 End: 01-26-2023 technetium mebrofenin (CHOLETEC) injection 3.5 millicurie tiotropium 0.018 mg inhalation powder (8 sources) Anticholinergic Start: 08-31-2019 End: 09-12-2023 take 1 capsule by inhalation once daily in the morning Tiotropium Wortham (Spiriva With Handihaler) 18 mcg Capsule, W/Inhalation Device Discontinued 1 CAP INHALATION Every morning August 30, 2019 11:00pm September 12, 2023 12:47pm Vitamin D 1000 intl units Tab (1 [...] 04-23-2021 Resolved: 01-26-2023 Episodic Acute cerebrovascular disease (19 sources) Cerebrovascular accident; Translations: [Cerebral artery occlusion, unspecified with cerebral infarction] Onset: 07-25-2023 09-01-2019 Chronic Comment on above: Problem List clean-u p per request of Phys. EHR Cmte Asthma (20 sources) Asthma; Translations: [Asthma, unspecified type, unspecified] Onset: 07-25-2023 01-19-2023 Chronic Biliary tract disease (7 sources) Calculus of gallbladder without cholecystitis without obstruction; Translations: [Acute cholecystitis] Onset: 04-28-2021 Episodic Blindness and vision defects (8 sources) Transient visual loss; Translations: [Transient visual loss, unspecified eye] 08-31-2019 Episodic Comment on above: Problem List clean-u p per request of Phys. EHR Cmte Chronic obstructive pulmonary disease and bronchiectasis (20 sources) Chronic obstructive lung disease; Translations: [Chronic airway obstruction, not elsewhere classified] Onset: 07-29-2021 Resolved: 01-12-2023 Chronic Conditions associated with dizziness or vertigo (5 sources) Dizziness and giddiness; Translations: [Dizziness] Onset: 07-29-2021 Resolved: 07-29-2021 Episodic Congestive heart failure; nonhypertensive (11 sources) Unspecified systolic (congestive) heart failure; Translations: [Acute on chronic systolic heart failure] Onset: 07-08-2015 01-12-2023 Chronic Coronary atherosclerosis and other heart disease (20 sources) Atherosclerotic heart disease of tangirnaq coronary artery without angina pectoris; Translations: [Coronary arteriosclerosis] Onset: 07-08-2015 Resolved: 07-29-2021 Chronic Diabetes mellitus without complication (5 sources) Prediabetes 01-12-2023 Episodic Diseases of white blood cells (4 sources) Familial eosinophilia; 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 Disorders of lipid metabolism (20 sources) Hyperlipidemia; Translations: [Other and unspecified hyperlipidemia] Onset: 07-25-2023 08-31-2019 Chronic Essential hypertension (20 sources) Hypertensive disorder; Translations: [Unspecified essential hypertension] Onset: 12-21-2022 08-31-2019 Chronic Nonspecific chest pain (3 sources) Chest pain; Translations: [Chest pain, unspecified] Onset: 12-21-2022 Episodic Other aftercare (2 sources) Long-term current use of inhaled steroid; Translations: [[facility] (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 inhaled steroids] 12-26-2023 Episodic Other aftercare (2 sources) [facility] (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 inhaled steroids; Translations: [Long-term (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 steroids] 12-26-2023 Episodic Other circulatory disease (5 sources) History [...] Chronic Other nutritional; endocrine; and metabolic disorders (7 sources) Body mass index 30+ - obesity; Translations: [Body mass index (BMI) 37.0-37.9, adult] Onset: 01-17-2024 07-12-2023 Chronic Other nutritional; endocrine; and metabolic disorders (4 sources) Morbid obesity 07-12-2023 Chronic Other nutritional; endocrine; and metabolic disorders (2 sources) Body mass index (BMI) 37.0-37.9, adult; Translations: [Body mass index (BMI) 37.0-37.9, adult] Onset: 01-17-2024 Chronic Other screening for suspected conditions (not mental disorders or infectious disease) (3 sources) Increased lactic acid level; Translations: [Other [...] Onset: 01-25-2023 01-25-2023 Episodic Residual codes; unclassified (5 sources) History of repair of umbilical hernia; Translations: [Other specified postprocedural states] 09-19-2023 Episodic Comment on above: 09/15/23 Shahnaz Hos p. Screening and history of mental health and substance abuse codes (14 sources) Personal history of nicotine dependence; Translations: [Ex-smoker] Onset: 04-28-2021 12-26-2023 Episodic Comment on above: quit 2006 minimal sm oker; Transient cerebral ischemia (8 sources) Transient cerebral ischemia; Translations: [Transient cerebral ischemic attack, unspecified] 08-31-2019 Chronic Comment on above: Problem List clean-u p per request of Phys. EHR Cmte Unclassified (1 source) Other eosinophilia; Translations: [Other eosinophilia] Onset: 01-17-2024 Past or Other Problems Problem Classification Problem Date Documented Da te Episodic/Chronic Other aftercare (1 source) Encounter for follow-up examination after completed treatment for conditions other than malignant neoplasm; Translations: [Encounter for follow-up examination after completed treatment for conditions other than malignant neoplasm] Onset: 11-15-2016 Episodic Other aftercare (1 source) Other alf (current) drug therapy; Translations: [OTH [facility] CURRENT DRUG THERAPY] Onset: 04-28-2021 Episodic Other circulatory disease (6 sources) H/O: hypertension; Translations: [Personal history of other diseases of circulatory system] Resolved: 04-16-2021 Episodic Results Test Name Value Interpretation Reference Range Facility Consultation/Specialist Note on 06-25-2024 Consultation/Speciali st Note [id number]#1.00OTGTIF F [facility] Cardiology Consultationon Cardiology Consultation [id number]#1.00OTGTIFF [facility] Consultation/Specialist Note on 03-26-2024 Consultation/Speciali st Note [id number]#1.00OTGTIFF [facility] Automated basophil %Ordered By: Saleem Garcia on 01-17-2024 Basophils/100 WBC (Bld) 0.5 % Normal . [facility] Comment on above: Performed By: #### C BC #### [address] Automated basophil countOrde red By: Saleem Garcia on 01-17-2024 Basophils (Bld) [#/Vol] 0.0 10*3/uL Normal 0.0-0.2 [facility] Comment on above: Result Comment: PERF ORMED BY: [place] [address] PATHOLOGIST [employer] EDUARD MARCANO M.D. Performed By: #### C BC #### [address] Automated blood monocyte cou ntOrdered By: Saleem Garcia on 01-17-2024 Monocytes (Bld) [#/Vol] 0.5 10*3/uL Normal 0.0-0.8 [facility] Comment on above: Performed By: #### C BC #### [address] Automated eosinophil %Ordere d By: Saleem Garcia on 01-17-2024 Eosinophils/100 WBC (Bld) 2.7 % Normal . [facility] Comment on above: Performed By: #### C BC #### [address] Automated eosinophil countOr dered By: Saleem Garcia on 01-17-2024 Eosinophils (Bld) [#/Vol] 0.2 10*3/uL Normal 0.0-0.45 [facility] Comment on above: Performed By: #### C BC #### [address] Automated monocyte %Ordered By: Saleem Garcia on 01-17-2024 Monocytes/100 WBC (Bld) 6.2 % Normal . [facility] Comment on above: Performed By: #### C BC #### [address] Automated neutrophil %Ordere d By: Saleem Garcia on 01-17-2024 Neutrophils/100 WBC (Bld) 76.7 % Normal . [facility] Comment on above: Performed By: #### C BC #### [address] Complete Blood Count Auto Di ffon 01-17-2024 Mean Corpuscular HGB Conc 34.5 g/dL Normal 32.5-35.6 [facility] Comment on above: Performed By: #### C BC #### [address] NRBC% 0.0 /100{WBC} Normal 0-0.5 [facility] Comment on above: Performed By: #### C BC #### [address] Consultation/Specialist Note on 01-17-2024 Consultation/Speciali st Note [id number]#1.00OTGTIF F Normal [facility] Erythrocyte distribution wid th [Ratio] by Automated countOrdered By: Saleem Garcia on 01-17-2024 Erythrocyte distribution width (RBC) [Ratio] 13.7 % Normal 12.0-14.8 [facility] Comment on above: Performed By: #### C BC #### [address] Erythrocytes [#/volume] in B lood by Automated countOrdered By: Saleem Garcia on 01-17-2024 RBC (Bld) [#/Vol] 4.08 10*6/uL Normal 3.90-5.60 [facility] Comment on above: Performed By: #### C BC #### [address] Hematocrit [Volume Fraction] of Blood by Automated countOrdered By: Saleem Garcia on 01-17-2024 Hematocrit (Bld) [Volume fraction] 37.5 % Low 38.8-50.0 [facility] Comment on above: Performed By: #### C BC #### [address] Hemoglobin [Mass/volume] in BloodOrdered By: Saleem Garcia on 01-17-2024 Hemoglobin (Bld) [Mass/Vol] 12.9 g/dL Low 13.0-17.0 [facility] Comment on above: Performed By: #### C BC #### [address] Leukocytes [#/volume] correc brandyn for nucleated erythrocytes in Blood by Automated counOrdered By: Saleem Garcia on 01-17-2024 WBC corrected for nucl RBC Auto (Bld) [#/Vol] 7.9 10*3/uL 4.1-10.5 [facility] Leukocytes [#/volume] in Blo od by Automated countOrdered By: Saleem Garcia on 01-17-2024 WBC (Bld) [#/Vol] 7.9 10*3/uL Normal 4.1-10.5 [facility] Comment on above: Performed By: #### C BC #### [facility] [address] [place] [address] [place] Lymphocytes [#/volume] in Bl ood by Automated countOrdered By: Saleem Garcia on 01-17-2024 Lymphocytes (Bld) [#/Vol] 1.1 10*3/uL Normal 1.00-4.8 [facility] Comment on above: Performed By: #### C BC #### [address] Lymphocytes/100 leukocytes i n Blood by Automated countOrdered By: Saleem Garcia on 01-17-2024 Lymphocytes/100 WBC (Bld) 13.9 % Normal . [facility] Comment on above: Performed By: #### C BC #### [address] MCH [Entitic mass] by Automa brandyn countOrdered By: Saleem Garcia on 01-17-2024 MCH (RBC) [Entitic mass] 31.7 pg Normal 27.5-35.2 [facility] Comment on above: Performed By: #### C BC #### [address] MCHC Auto (RBC) [Mass/Vol]Or dered By: Saleem Garcia on 01-17-2024 MCHC (RBC) [Mass/Vol] 34.5 g/dL 32.5-35.6 [facility] MCV [Entitic volume] by Auto mated countOrdered By: Saleem Garcia on 01-17-2024 MCV (RBC) [Entitic vol] 91.9 fL Normal 83.5-101 [facility] Comment on above: Performed By: #### C BC #### [address] Neutrophils [#/volume] in Bl ood by Automated countOrdered By: Saleem Garcia on 01-17-2024 Neutrophils (Bld) [#/Vol] 6.0 10*3/uL Normal 1.8-7.7 [facility] Comment on above: Performed By: #### C BC #### [address] Nucleated erythrocytes [Pres ence] in Blood by Automated countOrdered By: Saleem Garcia on 01-17-2024 Nucleated RBC Auto Ql (Bld) 0.0 /100{WBC} 0-0.5 [facility] Platelet mean volume [Entiti c volume] in Blood by Automated countOrdered By: Saleem Garcia on 01-17-2024 Platelet mean volume (Bld) [Entitic vol] 8.9 fL Normal 6.6-10.1 [facility] Comment on above: Performed By: #### C BC #### [address] Platelets [#/volume] in Bloo d by Automated countOrdered By: Saleem Garcia on 01-17-2024 Platelets (Bld) [#/Vol] 190 10*3/uL Normal 150-450 [facility] Comment on above: Performed By: #### C BC #### [address] Consultation/Specialist Note on 01-03-2024 Consultation/Speciali st Note [id number]#1.00OTGTIF [facility] Lab - Other Lab Resultson Lab - Other Lab Results [id number]#1.00OTGTIFF [facility] Outside Recordson 12-09-2023 Outside Records [id number]#1.00OTGTI [facility] No Panel InformationOrdered By: Harriet Galicia on 12-08-2023 Miscellaneous Pathology Test See comment [facility] Comment on above: See report. Scanned copy available in EMR. Outside Recordson 12-08-2023 Outside Records [id number]#1.00OTGTI [facility] Pathology Request for Lab Co rpon 12-08-2023 Pathology Request for Lab Carmen Normal [facility] Comment on above: Order Comment: PATHO LOGY GI SPEDCIMEN Result Comment: See report. Scanned copy available in EMR. PERFORMED BY: [place] [address] PATHOLOGIST ELECTRONIC SENSING EQUIPMENT ASSEMBLER DEUARD MARCANO M.D. Performed By: #### P ATH TO [facility] #### [address] [address] [place] Lab - Other Lab Resultson Lab - Other Lab Results [id number]#1.00OTGTI FF [facility] Ambulatory Visit Summaryon 0 10-05-2023 Ambulatory Visit [...] choosing us for your care. Dee Merino [facility] General Surgery Office/Clini c Noteon 10-05-2023 General [...] SARS-CoV-2 (COVID-19) mRNA-1273 vaccine 08/22/2020 Recorded Normal [facility] Comment on above: Result Comment: Elec tronically Signed By: LIN FENTON, Marbin Carrillo\.br\Date and Time Signed: 10/05/23 17:20 EDT Pathology Noteon 09-29-2023 Pathology Note [id number]#1.00TIFF Normal [facility] Ambulatory Visit Summaryon 0 09-21-2023 Ambulatory Visit [...] choosing us for your care. Dee Merino [facility] General Surgery Office/Clini c Noteon 09-21-2023 General [...] SARS-CoV-2 (COVID-19) mRNA-1273 vaccine 08/22/2020 Recorded Normal [facility] Comment on above: Result Comment: Elec tronically Signed By: LIN FENTON, Marbin Chaudhari\Date and Time Signed: 09/21/23 16:25 EDT Consultation/Specialist Note on 09-19-2023 Consultation/Speciali st Note [id number]#1.00OTGTIFF [facility] Outside Recordson 09-19-2023 Outside Records [id number]#1.00OTGTIFF [facility] Operative Reporton Operative Report [id number]#1.00TIFF Normal [facility] Mihir 09-14-2023 L Specimen: [id number] Received: 09/15/23 Status: FILIBERTO Lorenzo Num: [id number] Spec Type: Surgical Subm Dr: Marbin Ceballos MD FACS Tissues: A Soft Tissue/Surgical Margin-Other than Tumor,Mass,Lip or Sho (PERITONEUM) Procedures: HE, Gross/Micro L4 Age/ Patient Sex Location Account Attending Physician Abraham Harry 62/M [facility] [id number] Marbin Ceballos MD FACS SPEC NUM: [id number] RECD: 09/15/23 STATUS: FILIBERTO LORENZO NUM: [id number] TONG: 09/14/[address]: Marbin eCballos MD FACS ENTERED: 09/15/[address] [facility] DR: William Christie SPEC TYPE: Surgical [...] serially sectioned revealing unremarkable fibrous cut surfaces. Training Personnel Supervisor sections are submitted in A1. Clinical history: Incisional hernia TW CPT Codes 87519 Specimen: [id number] Received: 09/15/23 Status: FILIBERTO Hayley Num: [id number] Spec Type: Surgical Subm Dr: Marbin Ceballos MD FACS Tissues: A Soft Tissue/Surgical Margin-Other than Tumor,Mass,Lip or Sho (PERITONEUM) Procedures: Duran ROBLES/Fermin Aponte Patient: Abraham Harry [id number] (Continued) Signed (signature on file) Ena Jain MD 09/16/232035 Normal [facility] Provider Orderson 09-14-2023 Provider Orders [id number]#1.00OTGTIFF [facility] ECG 12-Leadon 09-02-2023 ECG 12-Lead [id number]#1.00TIFF [facility] Lab Reportson 09-02-2023 Lab Reports [id number]#1.00TIFF [facility] Lab Reports [id number]#1.00TIFF [facility] RAD - MISCon 09-02-2023 RAD - MISC [id number]#1.00TIFF [facility] Pre-Certification Formon Pre-Certification Form [id number]#1.00TIFF [facility] Provider Orderson 08-25-2023 Provider Orders [id number]#1.00OTGTIF [facility] Insurance Correspondenceon 0 08-24-2023 Insurance Correspondence [id number]#1.00TIFF [facility] Formson 08-16-2023 Forms [id number]#1.00TIFF [facility] General Surgery Office/Clini c Noteon [...] PRN A (more content not included)... Normal [facility] Comment on above: Result Comment: Elec tronically Signed By: LIN FENTON, Marbin Carrillo\.br\Date and Time Signed: 08/04/23 08:34 EDT Consent for Procedure/Surger yon 08-03-2023 Consent for Procedure/Surgery [id number]#1.00TIFF Normal [facility] Ambulatory Visit Summaryon 0 08-02-2023 Ambulatory Visit [...] you for choosing us for your care. [facility] Ambulatory Visit Summary TRACY HARRYSURENDRA Garzon :1960 Visit Date:08/02/2023 Ambulatory Visit Instructions Your [...] for choosing us for your care. Normal [facility] RAD - CT Reporton 08-01-2023 RAD - CT Report [id number]#1.00TIFF [facility] Rad - Other Radiology Report on 07-28-2023 Rad - Other Radiology Report [id number]#[facility] Pre-Certification Formon Pre-Certification Form [id number]#1.00TIFF [facility] Lab Reportson 07-26-2023 Lab Reports [id number]#1.00TIFF [facility] Miscellaneouson 07-20-2023 Miscellaneous [id number]#1.[facility] Ambulatory [facility] Summaryon 0 07-12-2023 Ambulatory [...] choosing us for your care. Normal Merino [facility] Physician Referralon 024 Physician Referral [id number]#1.00TIFF Normal [facility] Konstantin White Allergenon 023 Konstantin White Allergen <0.10 Normal Class 0 [facility] Comment on above: Performed By: #### M ULBERRY WHITE, BIRCH TREE, SORREL SHE, SYCAMORE, KONSTANTIN WHITE #### [facility] , [place] Common Silver All chucky 04-05-2023 [place] Common Silver Aller <0.10 Normal Class 0 [facility] Comment on above: Performed By: #### M ULBERRY WHITE, BIRCH TREE, SORREL SHE, SYCAMORE, KONSTANTIN WHITE #### [facility] , [place], White Allergenon 06-06-2022 [place], White Allergen <0.10 Normal Class 0 [facility] Comment on above: Result Comment: Perf ormed at: - [facility] [address] [id number] Wood Heel Cementer: Christiana Arenas MD, Phone: [phone] PERFORMED BY: [facility] [address] [place] [address] PATHOLOGIST ELECTRONIC SENSING EQUIPMENT ASSEMBLER EDUARD MARCANO M.D. Performed By: #### M ULBERRY WHITE, BIRCH TREE, SORREL SHE, SYCAMORE, KONSTANTIN WHITE #### [facility] , [place] Sheep Allergenon [place] Sheep Allergen 0.10 Critically abnormal Class 0/I [facility] Comment on above: Result Comment: Sapphire avitia of Specific IgE Class Description of Class ----- < 0.10 0 Negative 0.10 - 0.31 0/I Equivocal/Low 0.32 - 0.55 I Low 0.56 - 1.40 II Moderate 1.41 - 3.90 III High 3.91 - 19.00 IV Very High 19.01 - 100.00 V Very High >100.00 Very High Performed By: #### M ULBERRY WHITE, BIRCH TREE, SORREL SHE, SYCAMORE, KONSTANTIN WHITE #### [facility] , [place] Allergenon 04-05-20 [place] Allergen 0.15 Critically abnormal Class 0/I [facility] Comment on above: Result Comment: Perf ormed at: - [facility] [id number] [place] Cementer: Christiana Arenas MD, Phone: [phone] Performed By: #### M ULBERRY WHITE, BIRCH TREE, SORREL SHE, SYCAMORE, KONSTANTIN WHITE #### [facility] , Alternaria alternata IgE Ab [Units/volume] in SerumOrdered By: Chan Taylor on 03-22-2023 A. alternata IgE Qn (S) 0.22 kU/L Class 0/I [facility] Jordanian house dust mite IgE Ab [Units/volume] in SerumOrdered By: Chan Taylor on 03-22-2023 Jordanian house dust mite IgE Qn (S) 17.30 kU/L Class IV [facility] Area 5 Allergens with IgEon 03-22-2023 Alternaria Alternata 0.22 Critically abnormal Class 0/I [facility] Comment on above: Performed By: #### A LLERGEN 5 #### [facility] , Konstantin White Allergen Normal . [facility] Comment on above: Result Comment: Test not performed. Insufficient specimen to perform or complete analysis. Contacted your facility 03/31/2023 Performed By: #### A LLERGEN 5 #### [facility] , Aspergillis Fumigatus Allergen <0.10 Normal Class 0 [facility] Comment on above: Performed By: #### A LLERGEN 5 #### [facility] , [place] Grass Allergen 0.15 Critically abnormal Class 0/I [facility] Comment on above: Performed By: #### A LLERGEN 5 #### [facility] , [place] Common Silver Aller Normal . [facility] Comment on above: Result Comment: Test not performed. Insufficient specimen to perform or complete analysis. Contacted your facility 03/31/2023 Performed By: #### A LLERGEN 5 #### [facility] , Cat Hair/Dander Allergen 1.32 Critically abnormal Class II [facility] Comment on above: Performed By: #### A LLERGEN 5 #### [facility] , [place], Mountain Allergen 0.11 Critically abnormal Class 0/I [facility] Comment on above: Performed By: #### A LLERGEN 5 #### [facility] , [place] Herbarum <0.10 Normal Class 0 [facility] Comment on above: Performed By: #### A LLERGEN 5 #### [facility] , CLASS DESCRIPTION Normal . [facility] Comment on above: Result Comment: [...] A LLERGEN 5 #### [facility] , Cockroach Sami Allergen 0.33 Critically abnormal Class I [facility] Comment on above: Performed By: #### A LLERGEN 5 #### [facility] , [place] Allergen <0.10 Normal Class 0 [facility] Comment on above: Performed By: #### A LLERGEN 5 #### [facility] , D Farinae Mite Allergen 17.30 Critically abnormal Class IV [facility] Comment on above: Performed By: #### A LLERGEN 5 #### [facility] , D Pteronyssinus Allergen 18.40 Critically abnormal Class IV [facility] Comment on above: Performed By: #### A LLERGEN 5 #### [facility] , Dog Hair/Dander Allergen 0.28 Critically abnormal Class 0/I [facility] Comment on above: Performed By: #### A LLERGEN 5 #### [facility] , [place] Allergen <0.10 Normal Class 0 [facility] Comment on above: Performed By: #### A LLERGEN 5 #### [facility] , Immunoglobulin E 111 Normal 6-495 [facility] Comment on above: Performed By: #### A LLERGEN 5 #### [facility] , Maple/[place] Allergen 0.13 Critically abnormal Class 0/I [facility] Comment on above: Performed By: #### A LLERGEN 5 #### [facility] , Mouse Urine Allergen <0.10 Normal Class 0 [facility] Comment on above: Result Comment: PERF ORMED BY: [place] [address] [place] [address] PATHOLOGIST ELECTRONIC SENSING EQUIPMENT ASSEMBLER EDUARD MARCANO M.D. Performed By: #### A LLERGEN 5 #### [facility] , [place], White Allergen Normal . [facility] Comment on above: Result Comment: Test not performed. Insufficient specimen to perform or complete analysis. Contacted your facility 03/31/2023 Performed By: #### A LLERGEN 5 #### [facility] , [place] Tree Allergen <0.10 Normal Class 0 [facility] Comment on above: Performed By: #### A LLERGEN 5 #### [facility] , Pecan/[place] Tree Allergen <0.10 Normal Class 0 [facility] Comment on above: Performed By: #### A LLERGEN 5 #### [facility] , Penicillium Chrysogen Mold All <0.10 Normal Class 0 [facility] Comment on above: Performed By: #### A LLERGEN 5 #### [facility] , Pigweed Allergen <0.10 Normal Class 0 [facility] Comment on above: Performed By: #### A LLERGEN 5 #### [facility] , Ragweed Short Allergen 0.10 Critically abnormal Class 0/I [facility] Comment on above: Performed By: #### A LLERGEN 5 #### [facility] , [place] Sheep Allergen Normal . [facility] Comment on above: Result Comment: Test not performed. Insufficient specimen to perform or complete analysis. Contacted your facility 03/31/2023 Performed By: #### A LLERGEN 5 #### [facility] , Agra Allergen Normal . [facility] Comment on above: Result Comment: Test not performed. Insufficient specimen to perform or complete analysis. Contacted your facility 03/31/2023 Performed By: #### A LLERGEN 5 #### [facility] , Thistle Burkinan Allergen 0.18 Critically abnormal Class 0/I [facility] Comment on above: Performed By: #### A LLERGEN 5 #### [facility] , Benjy Allergen <0.10 Normal Class 0 [facility] Comment on above: Performed By: #### A LLERGEN 5 #### [facility] , [place] Tree Pollen Allergen 0.11 Critically abnormal Class 0/I [facility] Comment on above: Performed By: #### A LLERGEN 5 #### [facility] , Aspergillus fumigatus IgE Ab [Units/volume] in SerumOrdered By: Chan Taylor on 03-22-2023 A. fumigatus IgE Qn (S) <0.10 kU/L Class 0 [facility] Automated eosinophil %Ordere d By: Chan Taylor on 03-22-2023 Eosinophils/100 WBC (Bld) 3.4 % Normal . [facility] Comment on above: Order Comment: Reaso n for Exam Asthma with COPD Performed By: #### E OS COUNT #### [facility] [address] Automated eosinophil countOr dered By: Chan Taylor on 03-22-2023 Eosinophils (Bld) [#/Vol] 0.3 10*3/uL Normal 0.0-0.45 [facility] Comment on above: Order Comment: Reaso n for Exam Asthma with COPD Result Comment: PERF ORMED BY: [address] [place] [address] PATHOLOGIST ELECTRONIC SENSING EQUIPMENT ASSEMBLER EDUARD MARCANO M.D. Performed By: #### E OS COUNT #### [facility] [address] Bermuda grass IgE Ab [Units/ volume] in SerumOrdered By: Chan Taylor on 03-22-2023 [place] grass IgE Qn (S) 0.15 kU/L Class 0/I [facility] Boxelder IgE Ab [Units/volum e] in SerumOrdered By: Chan Taylor on 03-22-2023 Boxelder IgE Qn (S) 0.13 kU/L Class 0/I [facility] Cladosporium herbarum IgE Ab [Units/volume] in SerumOrdered By: Chan Taylor on 03-22-2023 C. herbarum IgE Qn (S) <0.10 kU/L Class 0 [facility] Cockroach IgE Ab [Units/volu me] in SerumOrdered By: Chan Taylor on 03-22-2023 Cockroach IgE Qn (S) 0.33 kU/L Class I [facility] [place] IgE Ab [Units/vol ume] in SerumOrdered By: Chan Taylor on 03-22-2023 [place] IgE Qn (S) <0.10 kU/L Class 0 [facility] Dog dander IgE Ab [Units/vol ume] in SerumOrdered By: Chan Taylor on 03-22-2023 Dog dander IgE Qn (S) 0.28 kU/L Class 0/I [facility] Eosinophil Counton WBC (Bld) [#/Vol] 8.6 10*3/uL Normal 4.1-10.5 [facility] Comment on above: Order Comment: Reaso n for Exam Asthma with COPD Performed By: #### E OS COUNT #### [facility] [address] house dust mite IgE Ab [Units/volume] in SerumOrdered By: Chan Taylor on 03-22-2023 house dust mite IgE Qn (S) 18.40 kU/L Class IV [facility] IgE [Units/volume] in Serum or PlasmaOrdered By: Chan Taylor on 03-22-2023 IgE Qn 111 [IU]/mL 6-495 [facility] Leukocytes [#/volume] correc brandyn for nucleated erythrocytes in Blood by Automated counOrdered By: Chan Taylor on 03-22-2023 WBC corrected for nucl RBC Auto (Bld) [#/Vol] 8.6 10*3/uL 4.1-10.5 [facility] Mountain Juniper IgE Ab [Uni ts/volume] in SerumOrdered By: Chan Taylor on 03-22-2023 Mountain Juniper IgE Qn (S) 0.11 kU/L Class 0/I [facility] Mouse urine proteins IgE Ab [Units/volume] in SerumOrdered By: Chan Taylor on 03-22-2023 Mouse urine proteins IgE Qn (S) <0.10 kU/L Class 0 [facility] No Panel InformationOrdered By: Chan Taylor on 03-22-2023 Allergen Note See comment . [facility] Comment on above: Levels of Specific I gE Class Description of Class ----- < 0.10 0 Negative 0.10 - 0.31 0/I Equivocal/Low 0.32 - 0.55 I Low 0.56 - 1.40 II Moderate 1.41 - 3.90 III High 3.91 - 19.00 IV Very High 19.01 - 100.00 V Very High >100.00 Very High Pecan or [place] Tree IgE Ab [Units/volume] in SerumOrdered By: Chan Taylor on 03-22-2023 Pecan or [place] Tree IgE Qn (S) <0.10 kU/L Class 0 [facility] Saltwort IgE Ab [Units/volum e] in SerumOrdered By: Chan Taylor on 03-22-2023 Saltwort IgE Qn (S) 0.18 kU/L Class 0/I [facility] Serum Jordanian sycamore IgE antibody assay (units/volume)Ordered By: Chan Taylor on 03-22-2023 Jordanian Agra IgE Qn (S) See comment . [facility] Comment on above: Test not performed. Insufficient specimen to perform orcomplete analysis.Contacted your facility 03/31/2023 Serum Penicillium chrysogenu m specific IgE antibody assayOrdered By: Chan Taylor on 03-22-2023 P. notatum IgE Qn (S) <0.10 kU/L Class 0 [facility] Serum cat dander IgG antibod y assay (units/volume)Ordered By: Chan Taylor on 03-22-2023 Cat dander IgG Qn (S) 1.32 kU/L Class II [facility] Serum rough pigweed IgE anti body assay (units/volume)Ordered By: Chan Taylor on 03-22-2023 Rough Pigweed IgE Qn (S) <0.10 kU/L Class 0 [facility] Serum short ragweed specific IgE antibody assayOrdered By: Chan Taylor on 03-22-2023 Common Ragweed IgE Qn (S) 0.10 kU/L Class 0/I [facility] Serum white elm IgG antibody assay (units/volume)Ordered By: Chan Taylor on 03-22-2023 White Elm IgG Qn (S) <0.10 kU/L Class 0 [facility] Sheep [place] IgE Ab [Units/v olume] in SerumOrdered By: Chan Taylor on 03-22-2023 Sheep [place] IgE Qn (S) See comment . [facility] Comment on above: Test not performed. Insufficient specimen to perform orcomplete analysis.Contacted your facility 03/31/2023 Silver Birch IgE Ab [Units/v olume] in SerumOrdered By: Chan Taylor on 03-22-2023 Silver Birch IgE Qn (S) See comment . [facility] Comment on above: Test not performed. Insufficient specimen to perform orcomplete analysis.Contacted your facility 03/31/2023 Benjy IgE Ab [Units/volume ] in SerumOrdered By: Chan Taylor on 03-22-2023 Benjy IgE Qn (S) <0.10 kU/L Class 0 [facility] [place] IgE Ab [Units/volume] in SerumOrdered By: Chan Taylor on 03-22-2023 [place] IgE Qn (S) 0.11 kU/L Class 0/I [facility] White Konstantin IgE Ab [Units/volu me] in SerumOrdered By: Chan Taylor on 03-22-2023 White Konstantin IgE Qn (S) See comment . [facility] Comment on above: Test not performed. Insufficient specimen to perform orcomplete analysis.Contacted your facility 03/31/2023 [place] IgE Ab [Units/volu me] in SerumOrdered By: Chan Taylor on 03-22-2023 [place] IgE Qn (S) <0.10 kU/L Class 0 [facility] [place] IgE Ab [Units /volume] in SerumOrdered By: Chan Tyalor on 03-22-2023 [place] IgE Qn (S) See comment . [facility] Comment on above: Test not performed. Insufficient specimen to perform orcomplete analysis.Contacted your facility 03/31/2023 Provider Letteron 03-14-2023 Provider Letter (Inserted Image. Dinora ble to display) March 14, 2023 ABRAHAM HARRY [address] [place] [address] [place] [address] : 1960 To Whom It May Concern, The above named person may return to work 03/15/2023 without restrictions. Sincerely, Dr. Marbin Ceballos MD General Surgery [facility] Cult,Bloodon 01-31-2023 Cult,Blood Specimen Description .BLOOD Special Requests R AC 11ML Culture NO GROWTH 5 DAYS Report Status FINAL 01/30/2023 [facility] Comment on above: Performed By: #### B C #### [facility] [address] [place], [place] [id number] [employer] Cementer: Candelario Kramer MD Cult,Blood Specimen Description .BLOOD Special Requests L HAND 2ML Culture NO GROWTH 5 DAYS Report Status FINAL 01/30/2023 [facility] Comment on above: Performed By: #### B C #### [facility] [address] [place], [place] [phone] [employer] Cementer: Candelario Kramer MD Office Visit (Cardiology)on 01-27-2023 [...] Weight Tips; Status:Complete - Retrospective Authorization; Done: 27Jan2023 Some eating tips that can help you lose weight.; Status:Complete - Retrospective Authorization; Done: 27Jan2023 Hyperlipidemia Renew: Atorvastatin Calcium 80 MG Oral Tablet; TAKE 1 TABLET BY MOUTH EVERY DAY SocHx: Former smoker Tobacco Use Screening; Status:Complete; Done: 27Jan2023 Patient Instructions Please bring all medicines, vitamins, [...] for which she was urgently hospitalized at [facility]. He underwent laparoscopic cholecystectomy and was hospitalized for 5 days. More recently had some more abdominal discomfort and was transferred to [place] where he underwent MRI and HIDA scan. [...] Recorded: 27Jan2023 08:32AM Heart Rate80, L Radial [id number], LUE, Sitting [id number], LUE (more content not included)... Normal [employer] Tobacco Screening.on 023 Adult depression screening assessment [facility] Work Phone: Fall risk assessment a) No falls within the last year [facility] Work Phone: Tobacco use status CPHS b) No [facility] Work Phone: CBC with Auto Differentialon 01-26-2023 Basophils (Bld) [#/Vol] 0.07 10*3/uL [facility] Basophils/100 WBC (Bld) 1 % 0 - 2 % [facility] Eosinophils (Bld) [#/Vol] 0.43 10*3/uL [facility] Eosinophils/100 WBC (Bld) 6 % High 1 - 4 % [facility] Erythrocyte distribution width (RBC) [Ratio] 13.6 % 11.8 - 14.4 % [facility] Hematocrit (Bld) [Volume fraction] 31.6 % Low 40.7 - 50.3 % [facility] Hemoglobin (Bld) [Mass/Vol] 10.3 g/dL Low 13.0 - 17.0 g/dL [facility] Immature granulocytes (Bld) [#/Vol] 0.05 10*3/uL [facility] Immature granulocytes/100 WBC (Bld) 1 % High 0 [facility] Interpretation and review of laboratory results Abnormal [facility] Lymphocytes/100 WBC (Bld) 19 % Low 24 - 43 % [facility] Lymphocytes/100 WBC (Bld) 1.33 % [facility] MCH (RBC) [Entitic mass] 30.5 pg 25.2 - 33.5 pg [facility] MCHC (RBC) [Mass/Vol] 32.6 g/dL 28.4 - 34.8 g/dL [facility] MCV (RBC) [Entitic vol] 93.5 fL 82.6 - 102.9 fL [facility] Monocytes/100 WBC (Bld) 6 % 3 - 12 % [facility] Monocytes/100 WBC (Bld) 0.41 % [facility] Neutrophils/100 WBC (Bld) 67 % High 36 - 65 % [facility] Nucleated RBC/100 WBC (Bld) [Ratio] 0.0 % 0.0 per 100 WBC [facility] Platelet mean volume (Bld) [Entitic vol] 10.7 fL 8.1 - 13.5 fL [facility] Platelets (Bld) [#/Vol] 249 10*3/uL [facility] RBC (Bld) [#/Vol] 3.38 10*6/uL Low 4.21 - 5.77 m/uL [facility] Segmented neutrophils/100 WBC (Bld) 4.77 % [facility] WBC other (Bld) [#/Vol] 7.1 [facility] CBC with Diffon 01-26-2023 Abs. Basophil 0.07 k/uL Normal 0.00-0.20 [facility] Comment on above: Performed By: #### P T, CP, CDP #### [address] [address] [place] [employer]er: Candelario Kramer MD Abs.Imm.Granulocyte 0.05 k/uL Normal 0.00-0.30 [facility] Comment on above: Performed By: #### P T, CP, CDP #### [address] [address] [place] C[employer]er: Candelario Kramer MD Abs.Neutrophil (Seg) 4.77 k/uL Normal 1.50-8.10 [facility] Comment on above: Performed By: #### P T, CP, CDP #### [place] [address] [employer] C[employer]er: Candelario Kramer MD Basophils/100 WBC (Bld) 1 % Normal 0-2 [facility] Comment on above: Performed By: #### P T, CP, CDP #### [address] [address] [place] C[employer]er: Candelario Kramer MD Eosinophils (Bld) [#/Vol] 0.43 10*3/uL Normal 0.00-0.44 [facility] Comment on above: Performed By: #### P T, CP, CDP #### [address] [address] [place] [employer]er: Candelario Kramer MD Eosinophils/100 WBC (Bld) 6 % High 1-4 [facility] Comment on above: Performed By: #### P T, CP, CDP #### [place] [address] [employer] Cementer: Candelario Kramer MD Erythrocyte distribution width (RBC) [Ratio] 13.6 % Normal 11.8-14.4 [facility] Comment on above: Performed By: #### P T, CP, CDP #### [address] [address] [place] C[employer]er: Candelario Kramer MD Hematocrit (Bld) [Volume fraction] 31.6 % Low 40.7-50.3 [facility] Comment on above: Performed By: #### P T, CP, CDP #### [address] [address] [place] C[employer]er: Candelario Kramer MD Hemoglobin (Bld) [Mass/Vol] 10.3 g/dL Low 13.0-17.0 [facility] Comment on above: Performed By: #### P T, CP, CDP #### [address] [address] [place] C[employer]er: Candelario Kramer MD Immature granulocytes/100 WBC (Bld) 1 % High 0 [facility] Comment on above: Performed By: #### P T, CP, CDP #### [address] [address] [place] [employer]er: Candelario Kramer MD Lymphocytes (Bld) [#/Vol] 1.33 10*3/uL Normal 1.10-3.70 [facility] Comment on above: Performed By: #### P T, CP, CDP #### [address] [address] [place] [employer]er: Candelario Kramer MD Lymphocytes/100 WBC (Bld) 19 % Low 24-43 [facility] Comment on above: Performed By: #### P T, CP, CDP #### [address] [address] [place] C[employer]er: Candelario Kramer MD MCH (RBC) [Entitic mass] 30.5 pg Normal 25.2-33.5 [facility] Comment on above: Performed By: #### P T, CP, CDP #### [address] [address] [place] C[employer]er: Candelario Kramer MD MCHC (RBC) [Mass/Vol] 32.6 g/dL Normal 28.4-34.8 [facility] Comment on above: Performed By: #### P TJAMES, CDP #### [address] [address] [place] C[employer]er: Candelario Kramer MD MCV (RBC) [Entitic vol] 93.5 fL Normal 82.6-102.9 [facility] Comment on above: Performed By: #### P T, CP, CDP #### [address] [address] [place] C[employer]er: Candelario Kramer MD Monocytes (Bld) [#/Vol] 0.41 10*3/uL Normal 0.10-1.20 [facility] Comment on above: Performed By: #### P TJAMES, CDP #### [address] [address] [place] [employer]er: Candelario Kramer MD Monocytes/100 WBC (Bld) 6 % Normal 3-12 [facility] Comment on above: Performed By: #### P T CP, CDP #### [address] [address] [place] C[employer]er: Candelario Kramer MD Neutrophil (Seg) 67 % High 36-65 [facility] Comment on above: Performed By: #### P T, CP, CDP #### [address] [address] [place] [employer]er: Candelario Kramer MD NRBC Automated 0.0 per 100 WBC Normal 0.0 [facility] Comment on above: Performed By: #### P T, CP, CDP #### [address] [address] [place] C[employer]er: Candelario Kramer MD Platelet mean volume (Bld) [Entitic vol] 10.7 fL Normal 8.1-13.5 [facility] Comment on above: Performed By: #### P T, CP, CDP #### [facility] [address] [place] [address] [place] C[employer]er: Candelario Kramer MD Platelets (Bld) [#/Vol] 249 10*3/uL Normal 138-453 [facility] Comment on above: Performed By: #### P T, CP, CDP #### [address] [address] [place] C[employer]er: Candelario Kramer MD RBC (Bld) [#/Vol] 3.38 10*6/uL Low 4.21-5.77 [facility] Comment on above: Performed By: #### P T, CP, CDP #### [address] [address] [place] [employer]er: Candelario Kramer MD WBC (Bld) [#/Vol] 7.1 10*3/uL Normal 3.5-11.3 [facility] Comment on above: Performed By: #### P T, CP, CDP #### [address] [address] [place] C[employer]er: Candelario Kramer MD Comp Metabolic Profon 2022 Albumin [Mass/Vol] 3.6 g/dL Normal 3.5-5.2 [facility] Comment on above: Performed By: #### P T, CP, CDP #### [facility] [address] [place] [address] [place] C[employer]er: Candelario Kramer MD Albumin/Glob Ratio 1.5 Normal 1.0-2.5 [facility] Comment on above: Performed By: #### P T, CP, CDP #### [facility] [address] [place] [address] [employer] [place] C[employer]er: Candelario Kramer MD Alkaline Phos 209 U/L High 40-129 [facility] Comment on above: Performed By: #### P T, CP, CDP #### [address] [address] [place] C[employer]er: Candelario Kramer MD ALT [Catalytic activity/Vol] 87 U/L High 5-41 [facility] Comment on above: Performed By: #### P T, CP, CDP #### [facility] [address] [place] [address] [employer] [place] C[employer]er: Candelario Kramer MD Anion gap [Moles/Vol] 11 mmol/L Normal 9-17 [facility] Comment on above: Performed By: #### P T, CP, CDP #### [facility] [address] [place] [address] [place] C[employer]er: Candelario Kramer MD AST [Catalytic activity/Vol] 93 U/L High <40 [facility] Comment on above: Performed By: #### P T, CP, CDP #### [address] [address] [place] C[employer]er: Candelario Kramer MD Bilirubin [Mass/Vol] 0.9 mg/dL Normal 0.3-1.2 [facility] Comment on above: Performed By: #### P T, CP, CDP #### [address] [address] [place] C[employer]er: Candelario Kramer MD Calcium [Mass/Vol] 8.6 mg/dL Normal 8.6-10.4 [facility] Comment on above: Performed By: #### P T, CP, CDP #### [facility] [address] [place] [address] [place] C[employer]er: Candelario Kramer MD Chloride [Moles/Vol] 105 mmol/L Normal 98-107 [facility] Comment on above: Performed By: #### P T, CP, CDP #### [address] [address] [place] C[employer]er: Candelario Kramer MD CO2 [Moles/Vol] 22 mmol/L Normal 20-31 [facility] Comment on above: Performed By: #### P T, CP, CDP #### [address] [address] [place] C[employer]er: Candelario Kramer MD Creatinine [Mass/Vol] 0.7 mg/dL Normal 0.7-1.2 [facility] Comment on above: Performed By: #### P T, CP, CDP #### [address] [address] [place] C[employer]er: Candelario Kramer MD GFR/1.73 sq M.predicted among non-blacks MDRD (S/P/Bld) [Vol rate/Area] mL/min/{1.73_m2} Normal >60 [facility] Comment on above: Result Comment: These [...] By: #### P T CP, CDP #### [address] [address] [place] C[employer]er: Candelario Kramer MD Glucose [Mass/Vol] 90 mg/dL Normal 70-99 [facility] Comment on above: Performed By: #### P T CP, CDP #### [address] [address] [place] C[employer]er: Candelario Kramer MD Potassium [Moles/Vol] 3.8 mmol/L Normal 3.7-5.3 [facility] Comment on above: Performed By: #### P T, CP, CDP #### [place] [address] [place], [place] [phone] [employer] Cementer: Candelario Kramer MD Protein [Mass/Vol] 6.0 g/dL Low 6.4-8.3 [facility] Comment on above: Performed By: #### P T CP, CDP #### [facility] [address] [place] [address] [place] C[employer]er: Candelario Kramer MD Sodium [Moles/Vol] 138 mmol/L Normal 135-144 [facility] Comment on above: Performed By: #### P TJAMES, CDP #### [facility] [address] [place] [address] [place] C[employer]er: Candelario Kramer MD Urea nitrogen [Mass/Vol] 14 mg/dL Normal 8-23 [facility] Comment on above: Performed By: #### P TJAMES, CDP #### [facility] [address] [place] [address] [place] C[employer]er: Candelario Kramer MD Comprehensive Metabolic Pane [facility] 01-26-2023 Albumin [Mass/Vol] 3.6 g/dL 3.5 - 5.2 g/dL [facility] Albumin/Globulin [Mass ratio] 1.5 {ratio} 1.0 - 2.5 [facility] ALP [Catalytic activity/Vol] 209 U/L High 40 - 129 U/L [facility] ALT [Catalytic activity/Vol] 87 U/L High 5 - 41 U/L [facility] Anion gap [Moles/Vol] 11 mmol/L 9 - 17 mmol/L [facility] AST [Catalytic activity/Vol] 93 U/L High NINF - 40 U/L [facility] Bilirubin [Mass/Vol] 0.9 mg/dL 0.3 - 1 .2 mg/dL [facility] Calcium [Mass/Vol] 8.6 mg/dL 8.6 - 10. 4 mg/dL [facility] Chloride [Moles/Vol] 105 mmol/L 98 - 10 7 mmol/L [facility] CO2 [Moles/Vol] 22 mmol/L 20 - 31 mmol/L [facility] Creatinine [Mass/Vol] 0.7 mg/dL 0.7 - 1.2 mg/dL [facility] GFR/1.73 sq M.predicted MDRD (S/P/Bld) [Vol rate/Area] - PINF [facility] Comment on above: These results are not [...] [Mass/Vol] 90 mg/dL 70 - 99 mg/dL [facility] Interpretation and review of laboratory results Abnormal [facility] Potassium [Moles/Vol] 3.8 mmol/L 3.7 - 5.3 mmol/L [facility] Protein [Mass/Vol] 6.0 g/dL Low 6.4 - 8.3 g/dL [facility] Sodium [Moles/Vol] 138 mmol/L 135 - 144 mmol/L [facility] Urea nitrogen [Mass/Vol] 14 mg/dL 8 - 23 mg/dL [facility] MRI ABDOMEN WO CONTRAST MRCP on [...] Rey Charles MD 01/26/23 Final result Normal [facility] Surgically absent gallbladder. No biliary ductal dilatation or retained common duct stone. Heterogeneous fluid is seen in the gallbladder fossa, presumably post operative fluid. Signal loss seen in liver on out of phase images, compatible with fatty infiltration [facility] EXAMINATION: MRI OF THE ABDOMEN WITHOUT [...] bowel distention. Scattered colonic diverticula are seen. [facility] Rey Charles MD - 01/26/2023 EXAMINATION: [...] of phase images, compatible with fatty infiltration [facility] Radiology Study observation (narrative) [facility] MRI ABDOMEN WO CONTRAST MRCP Ordered By: Rey Charles on 01-26-2023 [facility] Work Phone: NM HEPATOBILIARYon 3 NM HEPATOBILIARY [...] Saurabh Paul MD 01/26/23 Final result Normal [facility] No convincing scintigraphic evidence for a bile leak. [facility] EXAMINATION: NUCLEAR MEDICINE HEPATOBILIARY [...] pericolic gutter to suggest a bile leak. [facility] [place], Saurabh Carrillo MD - 01/26/2023 EXAMINATION: NUCLEAR MEDICINE HEPATOBILIARY [...] convincing scintigraphic evidence for a bile leak. [facility] Radiology Study observation (narrative) [facility] NM HEPATOBILIARYOrdered By: Saurabh Paul on 01-26-2023 [facility] Work Phone: PTon 01-26-2023 INR Coag (PPP) [Relative time] 1.0 {INR} Normal [facility] Comment on above: Result Comment: Therapeutic Range: Moderate Anticoagulant Intensity: INR = 2.0-3.0 High Anticoagulant Intensity: INR = 2.5-3.5 Performed By: #### P TJAMES, CDP #### [facility] [address] [place] [phone] [place]er: Candelario Kramer MD PT Coag (PPP) [Time] 13.1 s Normal 11.7-14.9 [facility] Comment on above: Performed By: #### P TJAMES, CDP #### [facility] [address] [place] [phone] [employer] [place]er: Candelario Kramer MD [facility]Ron 01-26-2023 INR Coag (PPP) [Relative time] 1.0 {INR} [facility] Comment on above: Therapeutic Range: Moderate Anticoagulant Intensity: INR = 2.0-3.0 High Anticoagulant Intensity: INR = 2.5-3.5 PT Coag (PPP) [Time] 13.1 s [facility] CBC with Auto Differentialon 01-25-2023 Basophils (Bld) [#/Vol] 0.05 10*3/uL [facility] Basophils/100 WBC (Bld) 1 % 0 - 2 % [facility] Eosinophils (Bld) [#/Vol] 0.35 10*3/uL [facility] Eosinophils/100 WBC (Bld) 4 % 1 - 4 % [facility] Erythrocyte distribution width (RBC) [Ratio] 13.8 % 11.8 - 14.4 % [facility] Hematocrit (Bld) [Volume fraction] 32.9 % Low 40.7 - 50.3 % [facility] Hemoglobin (Bld) [Mass/Vol] 10.6 g/dL Low 13.0 - 17.0 g/dL [facility] Immature granulocytes (Bld) [#/Vol] 0.04 10*3/uL [facility] Immature granulocytes/100 WBC (Bld) 1 % High 0 [facility] Interpretation and review of laboratory results Abnormal [facility] Lymphocytes/100 WBC (Bld) 19 % Low 24 - 43 % [facility] Lymphocytes/100 WBC (Bld) 1.50 % [facility] MCH (RBC) [Entitic mass] 30.0 pg 25.2 - 33.5 pg [facility] MCHC (RBC) [Mass/Vol] 32.2 g/dL 28.4 - 34.8 g/dL [facility] MCV (RBC) [Entitic vol] 93.2 fL 82.6 - 102.9 fL [facility] Monocytes/100 WBC (Bld) 6 % 3 - 12 % [facility] Monocytes/100 WBC (Bld) 0.51 % [facility] Neutrophils/100 WBC (Bld) 69 % High 36 - 65 % [facility] Nucleated RBC/100 WBC (Bld) [Ratio] 0.0 % 0.0 per 100 WBC [facility] Platelet mean volume (Bld) [Entitic vol] 10.4 fL 8.1 - 13.5 fL [facility] Platelets (Bld) [#/Vol] 300 10*3/uL [facility] RBC (Bld) [#/Vol] 3.53 10*6/uL Low 4.21 - 5.77 m/uL [facility] Segmented neutrophils/100 WBC (Bld) 5.55 % [facility] WBC other (Bld) [#/Vol] 8.0 [facility] CBC with Diffon 01-25-2023 Abs. Basophil 0.05 k/uL Normal 0.00-0.20 [facility] Comment on above: Performed By: #### C DP, CP, LACTIC #### [address] [address] [place]er: Candelario Kramer MD Abs.Imm.Granulocyte 0.04 k/uL Normal 0.00-0.30 [facility] Comment on above: Performed By: #### C DP, CP, LACTIC #### [facility] [address] [place] [address] [employer]er: Candelario Kramer MD Abs.Neutrophil (Seg) 5.55 k/uL Normal 1.50-8.10 [facility] Comment on above: Performed By: #### C DP, CP, LACTIC #### [facility] [address] [place] [address] [employer]er: Candelario Kramer MD Basophils/100 WBC (Bld) 1 % Normal 0-2 [facility] Comment on above: Performed By: #### C DP, CP, LACTIC #### [facility] [address] [place] [address] [employer]er: Candelario Kramer MD Eosinophils (Bld) [#/Vol] 0.35 10*3/uL Normal 0.00-0.44 [facility] Comment on above: Performed By: #### C DP, CP, LACTIC #### [facility] [address] [place] [address] [employer]er: Candelario Kramer MD Eosinophils/100 WBC (Bld) 4 % Normal 1-4 [facility] Comment on above: Performed By: #### C DP, CP, LACTIC #### [facility] [address] [place] [phone] [employer] C[employer]er: Candelario Kramer MD Erythrocyte distribution width (RBC) [Ratio] 13.8 % Normal 11.8-14.4 [facility] Comment on above: Performed By: #### C DP, CP, LACTIC #### [facility] [address] [place] [phone] [employer]er: Candelario Kramer MD Hematocrit (Bld) [Volume fraction] 32.9 % Low 40.7-50.3 [facility] Comment on above: Performed By: #### C DP, CP, LACTIC #### [facility] [address] [place] [address] [employer]er: Candelario Kramer MD Hemoglobin (Bld) [Mass/Vol] 10.6 g/dL Low 13.0-17.0 [facility] Comment on above: Performed By: #### C DP, CP, LACTIC #### [address] [address] [place]er: Candelario Karmer MD Immature granulocytes/100 WBC (Bld) 1 % High 0 [facility] Comment on above: Performed By: #### C DP, CP, LACTIC #### [facility] [address] [place] [address] [employer]er: Candelario Kramer MD Lymphocytes (Bld) [#/Vol] 1.50 10*3/uL Normal 1.10-3.70 [facility] Comment on above: Performed By: #### C DP, CP, LACTIC #### [facility] [address] [place] [address] [employer]er: Candelario Kramer MD Lymphocytes/100 WBC (Bld) 19 % Low 24-43 [facility] Comment on above: Performed By: #### C DP, CP, LACTIC #### [facility] [address] [place] [address] [employer]er: Candelario Kramer MD MCH (RBC) [Entitic mass] 30.0 pg Normal 25.2-33.5 [facility] Comment on above: Performed By: #### C DP, CP, LACTIC #### [address] [address] [employer] [place]er: Candelario Kramer MD MCHC (RBC) [Mass/Vol] 32.2 g/dL Normal 28.4-34.8 [facility] Comment on above: Performed By: #### C DP, CP, LACTIC #### [address] [address] [employer] [place]er: Candelario Kramer MD MCV (RBC) [Entitic vol] 93.2 fL Normal 82.6-102.9 [facility] Comment on above: Performed By: #### C DP, CP, LACTIC #### [address] [address] [employer] [place]er: Candelario Kramer MD Monocytes (Bld) [#/Vol] 0.51 10*3/uL Normal 0.10-1.20 [facility] Comment on above: Performed By: #### C DP, CP, LACTIC #### [address] [address] [employer] [place]: Candelario Kramer MD Monocytes/100 WBC (Bld) 6 % Normal 3-12 [facility] Comment on above: Performed By: #### C DP, CP, LACTIC #### [address] [address] Wood Heel Cementer: Candelario Kramer MD Neutrophil (Seg) 69 % High 36-65 [facility] Comment on above: Performed By: #### C DP, CP, LACTIC #### [address] [address] [employer]el Cementer: Candelario Kramer MD NRBC Automated 0.0 per 100 WBC Normal 0.0 [facility] Comment on above: Performed By: #### C DP, CP, LACTIC #### [address] [address] [employer] Cementer: Candelario Kramer MD Platelet mean volume (Bld) [Entitic vol] 10.4 fL Normal 8.1-13.5 [facility] Comment on above: Performed By: #### C DP, CP, LACTIC #### [address] [address] [employer]el Cementer: Candelario Kramer MD Platelets (Bld) [#/Vol] 300 10*3/uL Normal 138-453 [facility] Comment on above: Performed By: #### C DP, CP, LACTIC #### [address] [address] [employer] Cementer: Candelario Kramer MD RBC (Bld) [#/Vol] 3.53 10*6/uL Low 4.21-5.77 [facility] Comment on above: Performed By: #### C DP, CP, LACTIC #### [address] [address] [employer]el Cementer: Candelario Kramer MD WBC (Bld) [#/Vol] 8.0 10*3/uL Normal 3.5-11.3 [facility] Comment on above: Performed By: #### C DP, CP, LACTIC #### [address] [address] [employer] Cementer: Candelario Kramer MD Comp Metabolic Profon 2022 Albumin [Mass/Vol] 3.8 g/dL Normal 3.5-5.2 [facility] Comment on above: Performed By: #### C DP, CP, LACTIC #### [address] [address] [employer] Cementer: Candelario Kramer MD Albumin/Glob Ratio 1.5 Normal 1.0-2.5 [facility] Comment on above: Performed By: #### C DP, CP, LACTIC #### [address] [address] [employer] Cementer: Candelario Kramer MD Alkaline Phos 229 U/L High 40-129 [facility] Comment on above: Performed By: #### C DP, CP, LACTIC #### [address] [address] [employer] Cementer: Candelario Kramer MD ALT [Catalytic activity/Vol] 114 U/L High 5-41 [facility] Comment on above: Performed By: #### C DP, CP, LACTIC #### [address] [address] [employer] Cementer: Candelario Kramer MD Anion gap [Moles/Vol] 11 mmol/L Normal 9-17 [facility] Comment on above: Performed By: #### C DP, CP, LACTIC #### [address] [address] [employer] Cementer: Candelario Kramer MD AST [Catalytic activity/Vol] 189 U/L High <40 [facility] Comment on above: Performed By: #### C DP, CP, LACTIC #### [address] [address] [employer] Cementer: Candelario Kramer MD Bilirubin [Mass/Vol] 0.8 mg/dL Normal 0.3-1.2 [facility] Comment on above: Performed By: #### C DP, CP, LACTIC #### [address] [address] [employer] Cementer: Candelario Kramer MD Calcium [Mass/Vol] 8.7 mg/dL Normal 8.6-10.4 [facility] Comment on above: Performed By: #### C DP, CP, LACTIC #### [address] [address] [employer] Cementer: Candelario Kramer MD Chloride [Moles/Vol] 105 mmol/L Normal 98-107 [facility] Comment on above: Performed By: #### C DP, CP, LACTIC #### [facility] [address] [place] [address] [employer]el Cementer: Candelario Kramer MD CO2 [Moles/Vol] 23 mmol/L Normal 20-31 [facility] Comment on above: Performed By: #### C DP, CP, LACTIC #### [facility] [address] [place] [address] [employer] Cementer: Candelario Kramer MD Creatinine [Mass/Vol] 0.8 mg/dL Normal 0.7-1.2 [facility] Comment on above: Performed By: #### C DP, CP, LACTIC #### [address] [address] [employer]el Cementer: Candelario Kramer MD GFR/1.73 sq M.predicted among non-blacks MDRD (S/P/Bld) [Vol rate/Area] mL/min/{1.73_m2} Normal >60 [facility] Comment on above: Result Comment: These [...] By: #### C DP, CP, LACTIC #### [facility] [address] [place] [address] [employer] C[employer]er: Candelario Kramer MD Glucose [Mass/Vol] 88 mg/dL Normal 70-99 [facility] Comment on above: Performed By: #### C DP, CP, LACTIC #### [address] [address] [employer] Cementer: Candelario Kramer MD Potassium [Moles/Vol] 4.3 mmol/L Normal 3.7-5.3 [facility] Comment on above: Performed By: #### C DP, CP, LACTIC #### [facility] [address] [place] [address] [employer]el Cementer: Candelario Kramer MD Protein [Mass/Vol] 6.3 g/dL Low 6.4-8.3 [facility] Comment on above: Performed By: #### C DP, CP, LACTIC #### [facility] [address] [place] [address] [employer]el Cementer: Candelario Kramer MD Sodium [Moles/Vol] 139 mmol/L Normal 135-144 [facility] Comment on above: Performed By: #### C DP, CP, LACTIC #### [facility] [address] [place] [address] [employer] Cementer: Candelario Kramer MD Urea nitrogen [Mass/Vol] 15 mg/dL Normal 8-23 [facility] Comment on above: Performed By: #### C DP, CP, LACTIC #### [facility] [address] [place] [address] [employer]el Cementer: Candelario Kramer MD Comprehensive Metabolic Pane [facility] 01-25-2023 Albumin [Mass/Vol] 3.8 g/dL 3.5 - 5.2 g/dL [facility] Albumin/Globulin [Mass ratio] 1.5 {ratio} 1.0 - 2.5 [facility] ALP [Catalytic activity/Vol] 229 U/L High 40 - 129 U/L [facility] ALT [Catalytic activity/Vol] 114 U/L High 5 - 41 U/L [facility] Anion gap [Moles/Vol] 11 mmol/L 9 - 17 mmol/L [facility] AST [Catalytic activity/Vol] 189 U/L High NINF - 40 U/L [facility] Bilirubin [Mass/Vol] 0.8 mg/dL 0.3 - 1 .2 mg/dL [facility] Calcium [Mass/Vol] 8.7 mg/dL 8.6 - 10. 4 mg/dL [facility] Chloride [Moles/Vol] 105 mmol/L 98 - 10 7 mmol/L [facility] CO2 [Moles/Vol] 23 mmol/L 20 - 31 mmol/L [facility] Creatinine [Mass/Vol] 0.8 mg/dL 0.7 - 1.2 mg/dL [facility] GFR/1.73 sq M.predicted MDRD (S/P/Bld) [Vol rate/Area] - PINF [facility] Comment on above: These results are not [...] [Mass/Vol] 88 mg/dL 70 - 99 mg/dL [facility] Interpretation and review of laboratory results Abnormal [facility] Potassium [Moles/Vol] 4.3 mmol/L 3.7 - 5.3 mmol/L [facility] Protein [Mass/Vol] 6.3 g/dL Low 6.4 - 8.3 g/dL [facility] Sodium [Moles/Vol] 139 mmol/L 135 - 144 mmol/L [facility] Urea nitrogen [Mass/Vol] 15 mg/dL 8 - 23 mg/dL [facility] Lactic Acidon 01-25-2023 Lactic Acid,Whole Bl 1.7 mmol/L Normal 0.7-2.1 [facility] Comment on above: Performed By: #### C DP, CP, LACTIC #### [facility] [place] [address] [employer] Heel Cementer: Candelario Kramer MD Lactic Acid, Whole Blood 1.7 mmol/L 0.7 - 2.1 mmol/L [facility] Ambulatory Visit Summaryon 0 01-19-2023 Ambulatory [...] HTN (hypertension) Obesity Plantar fasciitis Normal [facility] General Surgery Office/Clini c Noteon 01-19-2023 General Surgery Office/Clinic Note HPI Staff 9 day post operative follow up post lap cholecystectomy completed while in-patient at [facility]. Denies discomfort, no use [...] SARS-CoV-2 (COVID-19) mRNA-1273 vaccine 08/22/2020 Recorded Normal [facility] Comment on above: Result Comment: Elec tronically Signed By: LIN FENTON, Marbin Chaudhari\Date and Time Signed: 01/19/23 16:30 EDT Operative Reporton Operative Report [id number]#1.00CD:127 [facility] Pathology Noteon 01-17-2023 Pathology Note [id number]#1.00CD:127 [facility] Consultation Noteon 01-13-20 Consultation Note [id number]#1.00CD:127 [facility] Consultation Noteon 01-12-20 Consultation Note [id number]#1.00CD:127 [facility] Consultation Note [id number]#1.00CD:127 [facility] Consultation Note [id number]#1.00CD:127 Normal [facility] Consultation Note [id number]#1.00CD:127 Normal [facility] Lab Reportson 01-11-2023 Lab Reports [id number]#1.00CD:127 Normal [facility] Lab Reports [id number]#1.00CD:127 Normal [facility] Lab Reports [id number]#1.00CD:127 Normal [facility] Lab Reports [id number]#1.00CD:127 Normal [facility] RAD - Ultrasound Reporton RAD - Ultrasound Report [id number]#1.00CD:127 Normal [facility] Cardiac Stress Teston 2022 Cardiac Stress Test [address], [place] [address] Exercise Stress Test Patient Name: ABRAHAM Garzon Ordering Physician: [id number] HARRY MD Study Date: 12/21/2022 Reading Physician: [id number] Baca MD MRN/PID: [id number] Supervising [id number] Baca Physician: Accession/Order#: [id number] Referring Physician: REY BACA Date of : 1960 PCP: [id number] Nirav Cain MD Gender: M Fellow: Height: 180.34 cm Nurse: Magali Parks RN Weight: 116.58 kg Motorcycle Racer: MARVIN BSA: 2.35 m2 Technologist: BMI: 35.84 kg/m2 Additional Staff: Age: 62 years cc report to: Patient Location: report to: [id number] Baca MD Study Type: Cardiac Stress Test Diagnosis/ICD: I25.10-Atherosclerotic heart disease; J87-Akkzlltoo (primary) hypertension; R07.9-Chest pain, unspecified Indication: Hypertension Procedure/CPT: Stress Test Interpretation-[id number]; Stress Test Supervision-[id number] Falls Risk: Low: Patient has low risk [...] 0.4 mm depression. 3. Normal Stress Test. [id number] Rey Baca MD Electronically signed on 12/23/2022 at 3:40:53 PM Final Normal [facility] Cardiac Stress Test MP-No r[facility] DO Work Phone: Office [...] Test; Status:Hold For - Scheduling,Retrospective Authorization; Requested for:[id number]; Class 2 obesity with body mass index (BMI) of 36.0 to 36.9 in adult Healthy Weight Tips; Status:Complete - Retrospective Authorization; Done: [id number] Some eating tips that can help you lose weight.; Status:Complete - Retrospective Authorization; Done: [id number] SocHx: Former smoker Tobacco Use Screening; Status:Complete; Done: [id number] Patient Instructions Please bring all medicines, vitamins, [...] a coronary angiogram 7 years ago in [facility] where he had moderate disease treated [...] negative for complaint. Vitals Vital Signs Recorded: [id number] 09:21AM Heart Rate84, L Radial Cmbpjuuf782, LUE, Sitting Rnbfleqkx58, LUE, Sitting Height5 ft 10.5 in Dxqzzl564 lb BMI Ihhpbfmocx43.35 kg/m2 BSA Calculated2.33 Tobacco Useb) No PHQ-2 [...] auscultation. Card (more content not included)... Normal [employer] Office Visit (Cardiology)on 04-15-2022 Follow-up visit Diagnoses/Problems [...] Weight Tips; Status:Complete - Retrospective Authorization; Done: [id number] Some eating tips that can help you lose weight.; Status:Complete - Retrospective Authorization; Done: 84Vkx7548 Hyperlipidemia Renew: Atorvastatin Calcium 80 MG Oral Tablet; TAKE 1 TABLET BY MOUTH EVERY DAY SocHx: Former smoker Tobacco Use Screening; Status:Complete; Done: 86Qkc1486 Tobacco Use Screening; Status:Complete; Done: 57Ymt5768 Patient Instructions Please bring all medicines, vitamins, [...] negative for complaint. Vitals Vital Signs Recorded: [id number] 03:07PM Heart Rate96, R Radial Slgtfqne312, LUE, Sitting Jbnrlltvg92, LUE, Sitting Height5 ft 10.5 in Unjkap870 lb 3.2 oz BMI Ztmoagusnr22.8 kg/m2 BSA Calculated2.37 Tobacco Useb) No Physical Exam Constitutional: alert and in no acute distress. Eyes: no erythema, swelling or discharge from the eye . Neck: neck is supple, symmetric, trachea midline, no masses and no thyromegaly . Pulmonary: no increased work of breathing or signs of respiratory distress and lungs clear to auscultation. Cardiovascula (more content not included)... Normal [employer] Tobacco Screening.on 022 Tobacco use status [facility] b) No -[facility] DO Work Phone: CBC AUTO DIFFon 02-18-2022 BASO # 0.1 103/ul Normal 0.0-0.[address] [facility] Comment on above: Performed By: #### C BC #### [facility] [address] [place] [address] Dr. Demetria Jain Basophils/100 WBC (Bld) 0.7 % Normal 0.2-2.[address] [facility] Comment on above: Performed By: #### C BC #### [facility] [address] [place] [address] Dr. Demetria Jain EO # 0.2 103/ul Normal 0.0-0.[address] [facility] Comment on above: Performed By: #### C BC #### [facility] [address] [place] [address] Dr. Demetria Jain Eosinophils/100 WBC (Bld) 2.4 % Normal 0.9-7.0 [facility] Comment on above: Performed By: #### C BC #### [facility] [address] [place] [address] Dr. Demetria Jain Erythrocyte distribution width (RBC) [Ratio] 12.6 % Normal 11.0-15.[address] [facility] Comment on above: Performed By: #### C BC #### [facility] [address] [place] [address] Dr. Demetria Jain Hematocrit (Bld) [Volume fraction] 38.1 % Critically low 42.0-54.[address] [facility] Comment on above: Performed By: #### C BC #### [facility] [address] [place] [address] Dr. Demetria Jain Hemoglobin (Bld) [Mass/Vol] 12.5 g/dL Critically low 14.0-18.[address] [facility] Comment on above: Performed By: #### C BC #### [facility] [address] [place] [address] Dr. Demetria Jain IG # 0.04 10e3/ul Critically high 0.00-0.03 [facility] Comment on above: Performed By: #### C BC #### [facility] [address] [place] [address] Dr. Demetria Jain IG % 0.4 % Normal 0.0-0.[address] [facility] Comment on above: Performed By: #### C BC #### [facility] [address] [place] [address] Dr. Demetria Jain LYMPH # 1.4 103/ul Normal 1.2-3.[address] [facility] Comment on above: Performed By: #### C BC #### [facility] [address] [place] [address] Dr. Demetria Jain Lymphocytes/100 WBC (Bld) 13.6 % Critically low 20.5-60.[address] [facility] Comment on above: Performed By: #### C BC #### [facility] [address] [place] [address] Dr. Demetria Jain MANUAL DIFF REQ NO Normal [facility] Comment on above: Performed By: #### C BC #### [facility] [address] [place] [address] Dr. Demetria Jain MCH (RBC) [Entitic mass] 30.2 pg Normal 25.9-34.[address] [facility] Comment on above: Performed By: #### C BC #### [facility] [address] [place] [address] Dr. Demetria Jain MCHC (RBC) [Mass/Vol] 32.8 g/dL Normal 29.9-35.[address] [facility] Comment on above: Performed By: #### C BC #### [facility] [address] [place] [address] Dr. Demetria Jain MCV (RBC) [Entitic vol] 92.0 fL Normal 80.0-94.[address] [facility] Comment on above: Performed By: #### C BC #### [facility] [address] [place] [address] [address] Demetria Jain MONO # 0.5 103/ul Normal 0.3-0.[address] [facility] Comment on above: Performed By: #### C BC #### [facility] [address] [place] [address] Dr. Demetria Jain Monocytes/100 WBC (Bld) 4.5 % Normal 1.7-12.[address] [facility] Comment on above: Performed By: #### C BC #### [facility] [address] [place] [address] Dr. Demetria Jain NEUT # 7.9 103/ul Critically high 1.4-6.5 [facility] Comment on above: Performed By: #### C BC #### [facility] [address] [place] [address] Dr. Demetria Jain Neutrophils/100 WBC (Bld) 78.4 % Critically high 43.0-75.[address] [facility] Comment on above: Performed By: #### C BC #### [facility] [address] [place] [address] Dr. Demetria Jain Platelet mean volume (Bld) [Entitic vol] 11.0 fL Normal 9.5-13.5 [facility] Comment on above: Performed By: #### C BC #### [facility] [address] [place] [address] Dr. Demetria Jain PLT 243 103/ul Normal 150-450 [facility] Comment on above: Performed By: #### C BC #### [facility] [address] [place] [address] Dr. Demetria Jain RBC 4.14 106/ul Critically low 4.70-6.10 [facility] Comment on above: Performed By: #### C BC #### [facility] [address] [place] [address] [address] Demetria Jain WBC 10.0 103/ul Normal 4.0-11.[address] [facility] Comment on above: Performed By: #### C BC #### [facility] [address] [place] [address] [address] Demetria Jain LIPID PROFILEon 02-18-2022 CHOL-HDL RATIO NORM SEE BELOW Normal [facility] Comment on above: Result Comment: 3.3 - 4.4 LOW RISK 4.4 - 7.1 AVERAGE RISK 7.1 - 11.0 MODERATE RISK >11.0 HIGH RISK Performed By: #### C MP, LIPID #### [facility] [address] [place] [address] Dr. Demetria Jain Cholesterol [Mass/Vol] 171 mg/dL Normal <=[address] [facility] Comment on above: Performed By: #### C MP, LIPID #### [facility] [address] [place] [address] Dr. Demetria Jain Cholesterol in HDL [Mass/Vol] 78 mg/dL Critically high 40-[address] [facility] Comment on above: Performed By: #### C MP, LIPID #### [facility] [address] [place] [address] [address] Demetria Jain Cholesterol in LDL [Mass/Vol] 83.6 mg/dL Normal [facility] Comment on above: Performed By: #### C MP, LIPID #### [facility] [address] [place] [address] Dr. Demetria Jain Cholesterol.total/Cho lesterol in HDL [Mass ratio] 2.2 {ratio} Normal [facility] Comment on above: Performed By: #### C MP, LIPID #### [facility] [address] [place] [address] Dr. Demetria Jain HDL NORMAL > or = 60 mg/dl - LO W CARDIOVASCULAR RISK <40 mg/dl - HIGH CARDIOVASCULAR RISK Normal [facility] Comment on above: Performed By: #### C MP, LIPID #### [facility] [address] [place] [address] [address] Demetria Jain LDL CALC NORMAL SEE BELOW Normal [facility] Comment on above: Result Comment: <100 mg/dl OPTIMAL 100 - 129 mg/dl NEAR OR ABOVE OPTIMAL 130 - 159 mg/dl BORDERLINE HIGH 160 - 189 mg/dl HIGH >190 mg/dl VERY HIGH Performed By: #### C MP, LIPID #### [facility] [address] [place] [address] Dr. Demetria Jain Triglyceride [Mass/Vol] 47 mg/dL Normal <=[address] [facility] Comment on above: Performed By: #### C MP, LIPID #### [facility] [address] [place] [address] Dr. Demetria Jain VLDL CALC 9.4 mg/dL Normal [facility] Comment on above: Performed By: #### C MP, LIPID #### [facility] [address] [place] [address] Dr. Demetria Jain PROF 14(COMP METB)on 022 Albumin [Mass/Vol] 4.0 g/dL Normal 3.4-5.0 [facility] Comment on above: Performed By: #### C MP, LIPID #### [facility] [address] [place] [address] Dr. Demetria Jain Albumin/Globulin [Mass ratio] 1.1 {ratio} Normal [facility] Comment on above: Performed By: #### C MP, LIPID #### [facility] [address] [place] [address] Dr. Demetria Jain ALP [Catalytic activity/Vol] 89 U/L Normal 46-[address] [facility] Comment on above: Performed By: #### C MP, LIPID #### [facility] [address] [place] [address] Dr. Demetria Jain ALT [Catalytic activity/Vol] 26 U/L Normal 16-[address] [facility] Comment on above: Performed By: #### C MP, LIPID #### [facility] [address] [place] [address] Dr. Demetria Jain Anion gap [Moles/Vol] 15.0 mmol/L Normal [facility] Comment on above: Performed By: #### C MP, LIPID #### [facility] [address] [place] [address] [address] Demetria Jain AST [Catalytic activity/Vol] 18 U/L Normal 15-[address] [facility] Comment on above: Performed By: #### C MP, LIPID #### [facility] [address] [place] [address] Dr. Demetria Jain Bilirubin [Mass/Vol] 0.7 mg/dL Normal 0.2-1.[address] [facility] Comment on above: Performed By: #### C MP, LIPID #### [facility] [address] [place] [address] Dr. Demetria Jain Calcium [Mass/Vol] 9.2 mg/dL Normal 8.5-10.1 [facility] Comment on above: Performed By: #### C MP, LIPID #### [facility] [address] [place] [address] Dr. Demetria Jain Chloride [Moles/Vol] 100 mmol/L Normal 98-[address] [facility] Comment on above: Performed By: #### C MP, LIPID #### [facility] [address] [place] [address] Dr. Demetria Jain CO2 [Moles/Vol] 25.8 mmol/L Normal 21.0-32.0 [facility] Comment on above: Performed By: #### C MP, LIPID #### [facility] [address] [place] [address] Dr. Demetria Jain Creatinine [Mass/Vol] 0.76 mg/dL Normal 0.70-1.[address] [facility] Comment on above: Performed By: #### C MP, LIPID #### [facility] [address] [place] [address] Dr. Demetria Jain EGFR-AF MALTESE >60 Normal >=60 [facility] Comment on above: Performed By: #### C MP, LIPID #### [facility] [address] [place] [address] Dr. Demetria Jain EGFR-NON AF MALTESE >60 Normal >=[address] [facility] Comment on above: Performed By: #### C MP, LIPID #### [facility] [address] [place] [address] [address] Demetria Jain Globulin (S) [Mass/Vol] 3.6 g/dL Normal [facility] Comment on above: Performed By: #### C MP, LIPID #### [facility] [address] [place] [address] [address] Demetria Jain Glucose [Mass/Vol] 87 mg/dL Normal 74-106 [facility] Comment on above: Performed By: #### C MP, LIPID #### [facility] [address] [place] [address] [address] Demetria Jain Potassium [Moles/Vol] 3.8 mmol/L Normal 3.5-5.[address] [facility] Comment on above: Performed By: #### C MP, LIPID #### [facility] [address] [place] [address] [address] Demetria Jain Protein [Mass/Vol] 7.6 g/dL Normal 6.4-8.2 [facility] Comment on above: Performed By: #### C MP, LIPID #### [facility] [address] [address] [address] Demetria Jain Sodium [Moles/Vol] 137 mmol/L Normal 136-145 [facility] Comment on above: Performed By: #### C MP, LIPID #### [facility] [address] [address] [address] Demetria Jain Urea nitrogen [Mass/Vol] 15.0 mg/dL Normal 7.0-18.[address] [facility] Comment on above: Performed By: #### C MP, LIPID #### [facility] [address] [address] [address] Demetria Jain Urea nitrogen/Creatinine [Mass ratio] 19.7 mg/mg Normal [facility] Comment on above: Performed By: #### C MP, LIPID #### [facility] [address] [address] [address] Demetria Jain CBC AUTO DIFFon 04-23-2021 BASO # 0.1 103/ul Normal 0.0-0.[address] [facility] Comment on above: Performed By: #### C BC #### [facility] [address] [place] [address] Dr. Demetria Jain Basophils/100 WBC (Bld) 0.5 % Normal 0.2-2.[address] [facility] Comment on above: Performed By: #### C BC #### [facility] [address] [place] [address] Dr. Demetria Jain EO # 0.3 103/ul Normal 0.0-0.[address] [facility] Comment on above: Performed By: #### C BC #### [facility] [address] [place] [address] Dr. Demetria Jain Eosinophils/100 WBC (Bld) 2.8 % Normal 0.9-7.[address] [facility] Comment on above: Performed By: #### C BC #### [facility] [address] [place] [address] Dr. Demetria Jain Erythrocyte distribution width (RBC) [Ratio] 12.7 % Normal 11.0-15.[address] [facility] Comment on above: Performed By: #### C BC #### [facility] [address] [place] [address] Dr. Demetria Jain Hematocrit (Bld) [Volume fraction] 38.1 % Critically low 42.0-54.[address] [facility] Comment on above: Performed By: #### C BC #### [facility] [address] [place] [address] Dr. Demetria Jain Hemoglobin (Bld) [Mass/Vol] 12.9 g/dL Critically low 14.0-18.[address] [facility] Comment on above: Performed By: #### C BC #### [facility] [address] [place] [address] Dr. Demetria Jain IG # 0.04 10e3/ul Critically high 0.00-0.03 [facility] Comment on above: Performed By: #### C BC #### [facility] [address] [place] [address] Dr. Demetria Jain IG % 0.4 % Normal 0.0-0.[address] [facility] Comment on above: Performed By: #### C BC #### [facility] [address] [place] [address] Dr. Demetria Jain LYMPH # 1.3 103/ul Normal 1.2-3.[address] [facility] Comment on above: Performed By: #### C BC #### [facility] [address] [place] [address] Dr. Demetria Jain Lymphocytes/100 WBC (Bld) 11.5 % Critically low 20.5-60.[address] [facility] Comment on above: Performed By: #### C BC #### [facility] [address] [place] [address] Dr. Demetria Jain MANUAL DIFF REQ NO Normal [facility] Comment on above: Performed By: #### C BC #### [facility] [address] [place] [address] Dr. Demetria Jain MCH (RBC) [Entitic mass] 30.4 pg Normal 25.9-34.[address] [facility] Comment on above: Performed By: #### C BC #### [facility] [address] [place] [address] Dr. Demetria Jain MCHC (RBC) [Mass/Vol] 33.9 g/dL Normal 29.9-35.[address] [facility] Comment on above: Performed By: #### C BC #### [facility] [address] [place] [address] Dr. Demetria Jain MCV (RBC) [Entitic vol] 89.9 fL Normal 80.0-94.[address] [facility] Comment on above: Performed By: #### C BC #### [facility] [address] [place] [address] Dr. Demetria Jain MONO # 0.7 103/ul Normal 0.3-0.[address] [facility] Comment on above: Performed By: #### C BC #### [facility] [address] [place] [address] Dr. Demetria Jain Monocytes/100 WBC (Bld) 6.3 % Normal 1.7-12.[address] [facility] Comment on above: Performed By: #### C BC #### [facility] [address] [place], [place] [address] Dr. Demetria Jain NEUT # 8.8 103/ul Critically high 1.4-6.5 [facility] Comment on above: Performed By: #### C BC #### [facility] [id number] Demetria Jain Neutrophils/100 WBC (Bld) 78.5 % Critically high 43.0-75.[address] [facility] Comment on above: Performed By: #### C BC #### [facility] [address] [address] [address] Demetria Jain Platelet mean volume (Bld) [Entitic vol] 10.6 fL Normal 9.5-13.[address] [facility] Comment on above: Performed By: #### C BC #### [facility] [address] [address] [address] Demetria Jain PLT 226 103/ul Normal 150-450 [facility] Comment on above: Performed By: #### C BC #### [facility] [id number] Demetria Jain RBC 4.24 106/ul Critically low 4.70-6.10 [facility] Comment on above: Performed By: #### C BC #### [facility] [id number] Demetria Jain WBC 11.2 103/ul Critically high 4.0-11.0 [facility] Comment on above: Performed By: #### C BC #### [facility] [id number] Demetria Jain [address] ABD/PELV W CONon 04-23-20 CT ABD/PELV W CON CLINICAL HISTORY: ABDOMINAL [...] EDIN SELF Date: 2021-04-23 21:42 Normal [facility] URINE PROFILEon 1 Bilirubin Ql (U) Negative Normal NEGATIVE [facility] Comment on above: Performed By: #### E RUR #### [facility] [address] [place], [place] [address] Dr. Demetria Jain Clarity (U) CLEAR Normal CLEAR [facility] Comment on above: Performed By: #### E RUR #### [facility] [address] [place], [place] [address] Dr. Demetria Jain Color (U) LT. YELLOW Normal YELLOW [facility] Comment on above: Performed By: #### E RUR #### [facility] [address] [place] [address] Dr. Demetria NICHOLE A micrscopic examina tion will be performed if indicated. Normal [facility] Comment on above: Performed By: #### E RUR #### [facility] [address] [place] [address] Dr. Demetria Jain Glucose Ql (U) Negative Normal NEGATIVE [facility] Comment on above: Performed By: #### E RUR #### [facility] [address] [place] [address] Dr. Demetria Jain Hemoglobin Ql (U) Negative Normal NEGATIVE [facility] Comment on above: Performed By: #### E RUR #### [facility] [address] [place] [address] Dr. Demetria Jain Ketones Ql (U) Negative Normal NEGATIVE [facility] Comment on above: Performed By: #### E RUR #### [facility] [address] [place] [address] Dr. Demetria Jain LEUKOCYTES Negative Normal NEGATIVE [facility] Comment on above: Performed By: #### E RUR #### [facility] [address] [place] [address] Dr. Demetria Jain Nitrite Ql (U) Negative Normal NEGATIVE [facility] Comment on above: Performed By: #### E RUR #### [facility] [address] [place] [address] Dr. Demetria Jain pH (U) 5.5 [pH] Normal 5-9 [facility] Comment on above: Performed By: #### E RUR #### [facility] [address] [place] [address] Dr. Demetria Jain SPEC GRAVITY 1.025 Normal 1.005-<=1. [address] [facility] Comment on above: Performed By: #### E RUR #### [facility] [address] [place] [address] Dr. Demetria Jain UA PROTEIN Negative Normal NEGATIVE/ TRACE [facility] Comment on above: Performed By: #### E RUR #### [facility] [address] [place] [address] Dr. Demetria Jain UR MICRO IND NOT INDICATED Normal [facility] Comment on above: Performed By: #### E RUR #### [facility] [address] [place] [address] Dr. Demetria Jain Urobilinogen Qn (U) 0.2 {Cata'U}/dL Normal 0.2 - 1. [address] [facility] Comment on above: Performed By: #### E RUR #### [facility] [address] [place] [address] Dr. Demetria Jain LACTATE/LACTIC ACIDon 2020 Lactate [Moles/Vol] 1.7 mmol/L Normal 0.7-2.0 [facility] Comment on above: Performed By: #### L ACT #### [facility] [address] [place] [address] Dr. Demetria Jain LIPASEon 04-23-2021 Lipase [Catalytic activity/Vol] 68.0 U/L Normal 23.0-300.[address] [facility] Comment on above: Performed By: #### C MP, LIPA #### [facility] [address] [place] [address] Dr. Demetria Jain PROF 14(COMP METB)on 021 Albumin [Mass/Vol] 3.7 g/dL Normal 3.5-5.0 [facility] Comment on above: Performed By: #### C MP, LIPA #### [facility] [address] [place] [address] Dr. Demetria Jain Albumin/Globulin [Mass ratio] 1.0 {ratio} Normal [facility] Comment on above: Performed By: #### C MP, LIPA #### [facility] [address] [place] [address] Dr. Demetria Jain ALP [Catalytic activity/Vol] 99 U/L Normal 38-[address] [facility] Comment on above: Performed By: #### C MP, LIPA #### [facility] [address] [place] [address] Dr. Demetria Jain ALT [Catalytic activity/Vol] 31 U/L Normal 21-[address] [facility] Comment on above: Performed By: #### C MP, LIPA #### [facility] [address] [address] [address] Demetria Jain Anion gap [Moles/Vol] 15.0 mmol/L Normal Th [facility] Comment on above: Performed By: #### C MP, LIPA #### [facility] [address] [address] [address] Demetria Jain AST [Catalytic activity/Vol] 24 U/L Normal 17-[address] [facility] Comment on above: Performed By: #### C MP, LIPA #### [facility] [address] [address] [address] Demetria Jain Bilirubin [Mass/Vol] 0.8 mg/dL Normal 0.2-1.[address] [facility] Comment on above: Performed By: #### C MP, LIPA #### [facility] [address] [address] [address] Demetria Jain Calcium [Mass/Vol] 9.2 mg/dL Normal 8.4-10.2 [facility] Comment on above: Performed By: #### C MP, LIPA #### [facility] [address] [address] [address] Demetria Jain Chloride [Moles/Vol] 98 mmol/L Normal 98-[address] [facility] Comment on above: Performed By: #### C MP, LIPA #### [facility] [address] [address] [address] Demetria Jain CO2 [Moles/Vol] 23.6 mmol/L Normal 22.0-30.0 [facility] Comment on above: Performed By: #### C MP, LIPA #### [facility] [address] [address] [address] Demetria Jain Creatinine [Mass/Vol] 0.93 mg/dL Normal 0.66-1.[address] [facility] Comment on above: Performed By: #### C MP, LIPA #### [facility] [address] [place] [address] Dr. Demetria Jain EGFR-AF MALTESE >60 Normal >=60 [facility] Comment on above: Performed By: #### C MP, LIPA #### [facility] [address] [address] [address] Demetria Jain EGFR-NON AF MALTESE >60 Normal >=[address] [facility] Comment on above: Performed By: #### C MP, LIPA #### [facility] [address] [address] [address] Demetria Jain Globulin (S) [Mass/Vol] 3.6 g/dL Normal [facility] Comment on above: Performed By: #### C MP, LIPA #### [facility] [address] [address] [address] Demetria Jain Glucose [Mass/Vol] 103 mg/dL Normal 74-106 [facility] Comment on above: Performed By: #### C MP, LIPA #### [facility] [address] [place] [address] Dr. Demetria Jain Potassium [Moles/Vol] 3.6 mmol/L Normal 3.4-5.[address] [facility] Comment on above: Performed By: #### C MP, LIPA #### [facility] [address] [address] [address] Demetria Jain Protein [Mass/Vol] 7.3 g/dL Normal 6.1-8.2 [facility] Comment on above: Performed By: #### C MP, LIPA #### [facility] [address] [address] [address] Demetria Jain Sodium [Moles/Vol] 133 mmol/L Critically low 137-145 [facility] Comment on above: Performed By: #### C MP, LIPA #### [facility] [address] [address] [address] Demetria Jain Urea nitrogen [Mass/Vol] 15.0 mg/dL Normal 9.0-20.[address] [facility] Comment on above: Performed By: #### C MP, LIPA #### [facility] [address] [address] [address] Demetria Jain Urea nitrogen/Creatinine [Mass ratio] 16.1 mg/mg Normal [facility] Comment on above: Performed By: #### C RUSLAN LIPA #### [facility] [address] [place], [place] [address] Dr. Demetria Jain TROPONIN, HIGH SENSITIVITYon 04-23-2021 HSTROP 9.3 pg/mL Normal 4.0-42.[address] [facility] Comment on above: Result Comment: CUT- OFF POINTS HAVE BEEN ESTABLISHED BASED ON THE FOURTH UNIVERSAL DEFINITIONS OF MYOCARDIAL INFARCTION. THE UPPER REFERENCE LIMIT (URL) OF TROPONIN, DEFINED THE 99TH PERCENTILE OF cTnI DISTRIBUTION IN A REFERENCE POPULATION, HAS BEEN CONFIRMED THE DECISION THRESHOLD FOR AK DIAGNOSIS. Performed By: #### H STROPN ####[facility] [address] [place], [place] [address]CtDr. Demetria Jain Tobacco Screening.on 021 Fall risk assessment a) No falls within the last year -[facility] [address] DO Work Phone: Tobacco use status CPHS b) No -[facility] DO Work Phone: CREATININEon 04-08-2020 Creatinine [Mass/Vol] 0.84 mg/dL Normal 0.70-1.33 [facility] Comment on above: Result Comment: For patients >49 years of age, the reference limit for Creatinine is approximately 13% higher for people identified as -Jordanian. Performed By: #### 3 47, 189, 52478 #### [facility] [address] Lead Warehouse Associate: Faraz Garcia MD Creatinine [Mass/Vol] 97 mL/min/1.73m2 Normal > OR = 6 0 [facility] Comment on above: Performed By: #### 3 12, 181, 67303 #### [facility] [address] Lead Warehouse Associate: Faraz Garcia MD Creatinine [Mass/Vol] 113 mL/min/1.73m2 Normal > OR = 60 [facility] Comment on above: Performed By: #### 3 83, 579, 49184 #### [facility]-[address] [place] [address] Lead Warehouse Associate: Faraz Garcia MD ELECTROLYTE PANELon 04-08-20 20 Chloride [Moles/Vol] 102 mmol/L Normal 98-110 [facility] Comment on above: Performed By: #### 3 75, 294, 30603 #### [facility]-[address], [address] [place] [address] Lead Warehouse Associate: Faraz Garcia MD CO2 [Moles/Vol] 28 mmol/L Normal 20-32 [facility] Comment on above: Performed By: #### 3 75, 294, 23016 #### [facility]-[address], [address] [place] [address] Lead Warehouse Associate: Faraz Garcia MD Potassium [Moles/Vol] 3.6 mmol/L Normal 3.5-5.[address] [facility] Comment on above: Performed By: #### 3 75, 294, 22928 #### [facility]-[address], [address] [place] [address] Lead Warehouse Associate: Faraz Garcia MD Sodium [Moles/Vol] 139 mmol/L Normal 135-146 [facility] Comment on above: Performed By: #### 3 75, 294, 73471 #### [facility]-[address], [address] [place] [address] Lead Warehouse Associate: Faraz Garcia MD UREA NITROGEN (BUN)on 2019 Urea nitrogen [Mass/Vol] 13 mg/dL Normal 7-25 [facility] Comment on above: Order Comment: FASTI NG: UNKNOWN Performed By: #### 3 75, 294, 82951 #### [facility]-[address], [address] [place] [address] Lead Warehouse Associate: Faraz Garcia MD PROGRESSon 06-17-2017 PROGRESS HNO ID: [id number] thor: Sukhwinder Casey: (none)Author Type: PhysicianType: Progress NotesFiled: 06/17/2017 3:24 PMNote Text:Heart and Vascular InstituteHazard Arh Regional Medical Centerofe [facility] Elayne Castaneda Department of Cardiovascular MedicineOUTPATIENT VISIT DATE06/17/17OUTPATIENT VISIT TYPEESTABLNORTHPORT [facility] CARE PHYSICIAN:Nirav Cain MD[address] [place] [address]Yuqcn: [phone]: [phone] COMPLAINT:Coronary artery diseaseHISTORY OF PRESENT ILLNESS:Abraham Harry [...] circumflex. EF about 40%.- Cardiomyopathy ([facility]) 07/03/2015 EF 35?40%. Nonischemic- CHF (congestive heart failure) ([facility]) 07/11/15 EF 40%. EF improved to 50% on 10/17/15.- COPD (chronic obstructive pulmonary disease) ([facility])- HTN (hypertension)- Obesity- Obstructive sleep apnea- Plantar [...] d. 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 ObeseNeuro: [...] lower extremities. Absent lowerextremity edemaCARDIOVASCULAR MEDICINE TESTING:Echocardiogram: 2/9/18 the EF 63%, stage I diastolic dysfunction, [...] us with further questions or concerns.Sukhwinder Soto M.D.Rafael and Elayne TomsichDepartment of Cardiovascular MedicineHeart and Vascular InstituteOhio State Health System[address], [place] [address]Pigbfg: [phone] Normal [facility] NM-NM Myocardial Spect Rest/ Stress 1 Day IMPORTon 06-10-2017 NM-NM Myocardial Spect Rest/Stress 1 Day IMPORT Images were obtained outside of [facility] [id number] Normal [facility] US-Echo Transthoracic w/ Con trast IMPORTon 06-10-2017 US-Echo Transthoracic w/ Contrast IMPORT Images were obtained outside of [facility] [id number] Normal [facility] CNOVon 05-31-2017 CNOV Office Visit (CARDFT) ABRAHAM HARRY ([id number]) 1960 MDate Time Provider Department05/31/17 3:00 PM SUKHWINDER SOTO During your visit today, we recorded the following information about you: Pulse Respiration Blood pressure Weight 89/minute 18/minute 126/80 119.3 kg Height 1.803 Emi Soto MD 05/31/2017 3:20 PM [facility] InstituteRobpresbyterian santa [facility] and Elayne Castaneda Department of Cardiovascular MedicineOUTPATIENT VISIT DATE05/31/17OUTPATIENT VISIT TYPEESTABLISHEDPRIMARY CARE PHYSICIAN:Nirav Cain MD[address] [facility] [address]Cgich: [phone]: [phone] COMPLAINT:Preoperative risk assessmentHISTORY OF PRESENT ILLNESS:Abraham Harry [...] circumflex. EF about 40%.- Cardiomyopathy ([facility]) 07/03/2015 EF 35?40%. Nonischemic- CHF (congestive heart failure) ([facility]) 07/11/15 EF 40%. EF improved to 50% on 10/17/15.- COPD (chronic obstructive pulmonary disease) ([facility])- HTN (hypertension)- Obesity- Obstructive sleep apnea- Plantar [...] d. 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 ObeseNeuro: [...] with further questions or concerns.Sukhwinder Soto M.D.Dale Agostoment of Cardiovascular MedicineAultman Orrville Hospitalrt and Vascular Institute[address] [place], [place] [address]Gvdpoq: [phone] Referring Provider: NIRAV CAIN SR [[id number]]Allergies As of Date: 05/31/2017(No Known Allergies)Date Reviewed: 05/31/2017Reviewed by: Nico Black) BEN Aguilar - Fully AssessedPrimary Visit Diagnosis:Atherosclerosis of tangirnaq coronary artery of tangirnaq heart without angina pectoris [I25.10] Other Visit Diagnoses:Essential hypertension [I10] Systolic heart failure, unspecified heart failure chronicity (HCC) [I50.20]Order(s):ECHO [670556] Order #: [id number]: 1 FUTURE PHARMACOLOGIC STRESS W/NUC IMAGING [6463047] Order #: [id number]: 1 NM CARDIAC PERF STRESS/PHARM [8021155] Order #: [id number] FUTURE HOLTER MONITOR 48 HOUR [[id number]] Order #: [id number] FUTUREPrescriptions as of 05/31/2017 Sig: SPIRIVA WITH [...] HTN (hypertension) [I10] INVALID FOR* Atherosclerosis of tangirnaq coronary artery of na*INVALID FOR* Acute on chronic systolic congestive heart fail*INVALID FOR* Abnormal stress test [R94.39] INVALID FOR* Chronic systolic congestive heart failure (HCC)*INVALID FOR* Dyspnea, unspecified [R06.00] INVALID FOR* Bilateral low back pain with sciatica [M54.40] INVALID FOR* Tachycardia [R00.0] INVALID FOR*Disposition: Return in about 2 weeks (around 06/14/2017).Follow-up and Disposition History RecordedEncounter Number: [id number] Status:Closed by SUKHWINDER SOTO MD on 05/31/17 [facility] PROGRESSon 05-26-2017 PROGRESS HNO ID: [id number] thor: Sukhwinder SotoSer: (none)Author Type: PhysicianType: Progress NotesFiled: 05/31/2017 3:20 PMNote Text:Heart and Vascular InstituteRobpresbyterian santa fe medical center and [facility] Department of Cardiovascular MedicineOUTPATIENT VISIT DATE05/31/17OUTPATIENT VISIT TYPEESTABLISHEDPRIMARY CARE PHYSICIAN:Nirav Cain MD[address] [facility] [address]Kyahz: [phone]: [phone] COMPLAINT:Preoperative risk assessmentHISTORY OF PRESENT ILLNESS:Abraham Harry [...] circumflex. EF about 40%.- Cardiomyopathy ([facility]) 07/03/2015 EF 35?40%. Nonischemic- CHF (congestive heart failure) ([facility]) 07/11/15 EF 40%. EF improved to 50% on 10/17/15.- COPD (chronic obstructive pulmonary disease) ([facility])- HTN (hypertension)- Obesity- Obstructive sleep apnea- Plantar [...] d. 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 ObeseNeuro: [...] contact us with further questions or concerns.Shania Choepartcruz of Cardiovascular MedicineAultman Orrville Hospitalrt and Vascular Institute[address] [address]Qwjarz: [phone] [facility] CNOVon 11-15-2016 CNOV Office Visit (CARDFT) ABRAHAM HARRY ([id number]) 1960 MDate Time Provider Department11/15/16 9:30 AM SUKHWINDER SOTO During your visit today, we recorded the following information about you: Pulse Respiration Blood pressure Weight 80/minute 18/minute 147/97 115.2 kg Height 1.803 Emi Soto MD 11/15/2016 9:39 AM [facility] and Vascular InstituteRobofe and Elayne Castaneda Department of Cardiovascular MedicineOUTPATIENT VISIT DATE 11/15/16OUTPATIENT VISIT TYPEESTABLISHEDPRIMARY CARE PHYSICIAN:Nirav Cain MD[address] [place] [address]Oaowl: [phone]: [phone] COMPLAINT:Preoperative risk assessmentHISTORY OF PRESENT ILLNESS:Abraham Harry is a 56 year old male who presents today to follow up. Historyincludes CAD, HTN, systolic HF, COPD. Dr Ozunaos to perform shoulder surgery nextTuesday for rotator [...] circumflex. EF about 40%.- Cardiomyopathy ([facility]) 07/03/2015 EF 35?40%. Nonischemic- CHF (congestive heart failure) ([facility]) 07/11/15 EF 40%. 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 ObeseNeuro: [...] M.D.Dale Dahl of Cardiovascular MedicineHeart and Vascular InstituteBrian Ville [address] [place], [place] [address]Ojqlcb: [phone] Referring Provider: RYLAN HOGAN [[id number]]Allergies As of Date: 11/15/2016(No Known Allergies)Date Reviewed: 11/15/2016Reviewed by: Nico Starkey (Rn) BEN Aguilar - Fully AssessedReason for Visit: Cardiac Clearance [4105]Primary Visit Diagnosis:Atherosclerosis of tangirnaq coronary artery of tangirnaq heart without angina pectoris [I25.10] Other Visit [...] HTN (hypertension) [I10] INVALID FOR* Atherosclerosis of tangirnaq coronary artery of na*INVALID FOR* Acute on chronic systolic congestive heart fail*INVALID FOR* Abnormal stress test [R94.39] INVALID FOR* Chronic systolic congestive heart failure (HCC)*INVALID FOR* Dyspnea, unspecified [R06.00] INVALID FOR* Bilateral low back pain with sciatica [M54.40] INVALID FOR* Tachycardia [R00.0] INVALID FOR*Disposition: Return in about 6 months (around 05/18/2017).Follow-up and Disposition History RecordedEncounter Number: [id number] Status:Closed by SUKHWINDER SOTO MD on 11/15/16 Normal [facility] PROGRESSon 11-10-2016 PROGRESS HNO ID: [id number] thor: Sukhwinder SotoSer: (none)Author Type: PhysicianType: Progress NotesFiled: 11/15/2016 9:39 AMNote Text:Heart and Vascular InstituteRobpresbyterian santa [facility] Department of Cardiovascular MedicineOUTPATIENT VISIT DATE 11/15/16OUTPATIENT VISIT TYPEESTABLISHEDPRIMARY CARE PHYSICIAN:Nirav Cain MD[address] [place] [address]Abore: [phone]: [phone] COMPLAINT:Preoperative risk assessmentHISTORY OF PRESENT ILLNESS:Abraham Harry [...] circumflex. EF about 40%.- Cardiomyopathy ([facility]) 07/03/2015 EF 35?40%. Nonischemic- CHF (congestive heart failure) ([facility]) 07/11/15 EF 40%. 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 ObeseNeuro: [...] with further questions or concerns.Sukhwinder Soto M.D.Dale Chavezpartment of Cardiovascular MedicineAultman Orrville Hospitalrt and Vascular InstituteSamantha Ville [address] [address], [place] [address]Iojplx: [phone] Normal [facility] Vital Signs Date Time Vital Sign Value Performing Clinician Facility 06-25-2024 14:40-0500 Body height 180.34 cm [facility] 06-25-2024 14:40-0500 Body mass index (BMI) [Ratio] 37.5 kg/m2 [facility] 06-25-2024 14:40-0500 Body weight 122.01 kg [facility] 06-25-2024 14:40-0500 Diastolic blood pressure 95 mm[Hg] [facility] 06-25-2024 14:40-0500 Heart rate 98 /min [facility] 06-25-2024 14:40-0500 Respiratory rate 20 /min [facility] 06-25-2024 14:40-0500 SaO2% (BldA) [Mass fraction] 98 % [facility] 06-25-2024 14:40-0500 Systolic blood pressure 149 mm[Hg] [facility] 04-13-2024 10:20-0500 Diastolic blood pressure 80 mm[Hg] Nicanormarvin Calvo SIGNS AND DISPLAYS SALESPERSON-USER EXPERIENCE DESIGNER Work Phone: [facility] 04-13-2024 10:20-0500 Systolic blood pressure 138 mm[Hg] Nicanor Calvo SIGNS AND DISPLAYS SALESPERSON-USER EXPERIENCE DESIGNER Work Phone: [facility] 04-13-2024 09:59-0500 Heart rate 82 /min Nicanor Calvo SIGNS AND DISPLAYS SALESPERSON-USER EXPERIENCE DESIGNER Work Phone: [facility] 04-13-2024 09:53-0500 Body height 180.3 cm Nicanor Calvo SIGNS AND DISPLAYS SALESPERSON-USER EXPERIENCE DESIGNER Work Phone: [facility] 04-13-2024 09:53-0500 Body mass index (BMI) [Ratio] 37.38 kg/m2 Nicanor Calvo SIGNS AND DISPLAYS SALESPERSON-USER EXPERIENCE DESIGNER Work Phone: [facility] 04-13-2024 09:53-0500 Body weight 121.56 kg Nicanormarvin Calvo SIGNS AND DISPLAYS SALESPERSON-USER EXPERIENCE DESIGNER Work Phone: [facility] 01-17-2024 15:06-0400 Diastolic blood pressure 76 mm[Hg] Rey Leiva DO Work Phone: [facility] 01-17-2024 15:06-0400 Heart rate 90 /min Rey Leiva DO Work Phone: [facility] 01-17-2024 15:06-0400 Systolic blood pressure 122 mm[Hg] Rey Leiva DO Work Phone: [facility] 01-17-2024 14:10-0400 Body height 179.1 cm Rey Leiva DO Work Phone: [facility] 01-17-2024 14:10-0400 Body mass index (BMI) [Ratio] 37.2 kg/m2 Rey Leiva DO Work Phone: [facility] 01-17-2024 14:10-0400 Body weight 119.3 kg Rey Leiva DO Work Phone: [facility] 12-26-2023 14:04-0400 Body height 180.34 cm DO Nirav House Work Phone: [facility] 12-26-2023 14:04-0400 Body mass index (BMI) [Ratio] 36.5 kg/m2 DO Nirav House Work Phone: [facility] 12-26-2023 14:04-0400 Body temperature 97.2 [degF] DO Nirav House Work Phone: [facility] 12-26-2023 14:04-0400 Body weight 118.84 kg DO Nirav House Work Phone: [facility] 12-26-2023 14:04-0400 Diastolic blood pressure 88 mm[Hg] DO Nirav House Work Phone: [facility] 12-26-2023 14:04-0400 Heart rate 88 /min DO Nirav House Work Phone: [facility] 12-26-2023 14:04-0400 Respiratory rate 20 /min DO Nirav House Work Phone: [facility] 12-26-2023 14:04-0400 SaO2% (BldA) [Mass fraction] 97 % DO Nirav House Work Phone: [facility] 12-26-2023 14:04-0400 Systolic blood pressure 140 mm[Hg] DO Nirav House Work Phone: [facility] 12-08-2023 10:03-0400 Diastolic blood pressure 86 mm[Hg] DO Nirav House Work Phone: [facility] 12-08-2023 10:03-0400 Heart rate 85 /min DO Nirav House Work Phone: [facility] 12-08-2023 10:03-0400 Respiratory rate 20 /min DO Nirav House Work Phone: [facility] 12-08-2023 10:03-0400 SaO2% (BldA) [Mass fraction] 100 % DO Nirav Cain Work Phone: [facility] 12-08-2023 10:03-0400 Systolic blood pressure 130 mm[Hg] DO Nirav Cain Work Phone: [facility] 12-08-2023 06:51-0400 Body height 180.34 cm DO Nirav Cain Work Phone: [facility] 12-08-2023 06:51-0400 Body weight 117.93 kg DO Nirav Cain Work Phone: [facility] 09-19-2023 13:25-0400 Body height 180.34 cm MD Marbin Ceballos Work Phone: [facility] 09-19-2023 13:25-0400 Body mass index (BMI) [Ratio] 37 kg/m2 MD Marbin Ceballos Work Phone: [facility] 09-19-2023 13:25-0400 Body temperature 98.1 [degF] MD Marbin Ceballos Work Phone: [facility] 09-19-2023 13:25-0400 Body weight 120.65 kg MD Marbin Ceballos Work Phone: [facility] 09-19-2023 13:25-0400 Diastolic blood pressure 90 mm[Hg] MD Marbin Ceballos Work Phone: [facility] 09-19-2023 13:25-0400 Heart rate 84 /min MD Marbin Ceballos Work Phone: [facility] 09-19-2023 13:25-0400 Respiratory rate 20 /min MD Marbin Ceballos Work Phone: [facility] 09-19-2023 13:25-0400 SaO2% (BldA) [Mass fraction] 98 % MD Marbin Ceballos Work Phone: [facility] 09-19-2023 13:25-0400 Systolic blood pressure 132 mm[Hg] MD Marbin Fernándezl Work Phone: [facility] 08-02-2023 13:54-0400 Blood Pressure Location Marbin NILL [facility] 08-02-2023 13:54-0400 Diastolic blood pressure 82 mm[Hg] Marbin NILL [facility] 08-02-2023 13:54-0400 Heart rate 72 /min Marbin NILL [facility] 08-02-2023 13:54-0400 Respiratory rate 16 /min Marbin NILL [facility] 08-02-2023 13:54-0400 Systolic blood pressure 122 mm[Hg] Marbin NILL [facility] 07-12-2023 13:39-0400 Blood Pressure Location Marbin NILL [facility] 07-12-2023 13:39-0400 Diastolic blood pressure 88 mm[Hg] Marbin NILL [facility] 07-12-2023 13:39-0400 Heart rate 72 /min Marbin NILL [facility] 07-12-2023 13:39-0400 Respiratory rate 16 /min Marbin NILL [facility] 07-12-2023 13:39-0400 Systolic blood pressure 126 mm[Hg] Marbin NILL [facility] 03-22-2023 13:15-0500 Body height 180.34 cm Chan Taylor Other [facility] Other 03-22-2023 13:15-0500 Body mass index (BMI) [Ratio] 36.51 kg/m2 Chan Taylor Other [facility] Other 03-22-2023 13:15-0500 Body temperature 98.1 [degF] Chan Taylor Other [facility] Other 03-22-2023 13:15-0500 Body weight 118.75 kg Chan Taylor Other [facility] Other 03-22-2023 13:15-0500 Diastolic blood pressure 80 mm[Hg] Chan Taylor Other [facility] Other 03-22-2023 13:15-0500 Respiratory rate 20 /min Chan Taylor Other [facility] Other 03-22-2023 13:15-0500 SaO2% (BldA) [Mass fraction] 98 % Chan Taylor Other [facility] Other 03-22-2023 13:15-0500 Systolic blood pressure 140 mm[Hg] Chan Taylor Other [facility] Other 01-27-2023 08:32-0400 Body height 180.34 cm SpecifiedBy Work Phone: [facility] Work Phone: 01-27-2023 08:32-0400 Body mass index (BMI) [Ratio] 35.71 kg/m2 Spec[employer]By Work Phone: [facility] Work Phone: 01-27-2023 08:32-0400 Body surface area Derived from formula 2.34 m2 SpecifiedBy Work Phone: [facility] Work Phone: 01-27-2023 08:32-0400 Body weight 116.12 kg SpecifiedBy Work Phone: [facility] Work Phone: 01-27-2023 08:32-0400 Diastolic blood pressure 78 mm[Hg] Nirav P House Work Phone: [facility] Work Phone: 01-27-2023 08:32-0400 Heart rate 80 /min Nirav P House Work Phone: [facility] Work Phone: 01-27-2023 08:32-0400 Systolic blood pressure 110 mm[Hg] Nirav P House Work Phone: [facility] Work Phone: 01-26-2023 07:31-0400 Body temperature 98.2 [degF] Croie Bonilla MD Work Phone: [facility] 01-26-2023 07:31-0400 Diastolic blood pressure 82 mm[Hg] Corie Bonilla MD Work Phone: [facility] 01-26-2023 07:31-0400 Heart rate 74 /min Corie Bonilla MD Work Phone: [facility] 01-26-2023 07:31-0400 Respiratory rate 20 /min Corie Bonilla MD Work Phone: [facility] 01-26-2023 07:31-0400 SaO2% (BldA) [Mass fraction] 97 % Corie Bonilla MD Work Phone: [facility] 01-26-2023 07:31-0400 Systolic blood pressure 127 mm[Hg] Corie Bonilla MD Work Phone: [facility] 04-15-2022 15:07-0500 Body height 179.07 cm Nirav P House Work Phone: [facility] DO Work Phone: 04-15-2022 15:07-0500 Body mass index (BMI) [Ratio] 37.8 kg/m2 Nirav P House Work Phone: [facility] DO Work Phone: 04-15-2022 15:07-0500 Body surface area Derived from formula 2.37 m2 Nirav P House Work Phone: [facility] DO Work Phone: 04-15-2022 15:07-0500 Body weight 121.2 kg Nirav P House Work Phone: [facility] DO Work Phone: 04-15-2022 15:07-0500 Diastolic blood pressure 80 mm[Hg] Nirav P House Work Phone: [facility] DO Work Phone: 04-15-2022 15:07-0500 Heart rate 96 /min Nirav P House Work Phone: [facility] DO Work Phone: 04-15-2022 15:07-0500 Systolic blood pressure 110 mm[Hg] Nirav P House Work Phone: [facility] DO Work Phone: 04-16-2021 15:40-0500 Body height 180.34 cm Gabriel Stacey Hoy Work Phone: [facility] DO Work Phone: 04-16-2021 15:40-0500 Body mass index (BMI) [Ratio] 37.94 kg/m2 Gabriel M Hoy Work Phone: [facility] DO Work Phone: 04-16-2021 15:40-0500 Body surface area Derived from formula 2.4 m2 Gabriel Stacey Hoy Work Phone: [facility] DO Work Phone: 04-16-2021 15:40-0500 Body weight 123.38 kg Gabriel Ibarra Hoy Work Phone: [facility] DO Work Phone: 04-16-2021 15:40-0500 Diastolic blood pressure 84 mm[Hg] Gabriel Ibarra Hoy Work Phone: [facility] DO Work Phone: 04-16-2021 15:40-0500 Heart rate 90 /min Gabriel Ibarra Hoy Work Phone: [facility] DO Work Phone: 04-16-2021 15:40-0500 Systolic blood pressure 128 mm[Hg] Gabriel Ibarra Hoy Work Phone: [facility] DO Work Phone: Encounters Encounter Date Encounter Type Care Provider Facility Start: 06-25-2024 End: 06-25-2024 ambulatory [facility] Work Phone: Start: 06-25-2024 End: 06-25-2024 Patient encounter procedure [facility] Work Phone: Start: 04-13-2024 End: 04-13-2024 Office outpatient visit 10 minutes Nicanor Calvo SIGNS AND DISPLAYS SALESPERSON-USER EXPERIENCE DESIGNER Work Phone: [facility] Comment on above: Essential hypertensi on Start: 04-13-2024 End: 04-13-2024 ambulatory [facility] Ambulatory Start: 03-19-2024 End: 03-19-2024 ambulatory [facility] Facility:[facility] Start: 01-17-2024 End: 01-17-2024 Office outpatient visit 25 minutes Rey Leiva DO Work Phone: [facility] Comment on above: ASHD (arteriosclerot ic heart disease); Chronic obstructive pulmonary disease, unspecified COPD type (Multi); Essential hypertension; Hyperlipidemia, unspecified hyperlipidemia type; Cerebrovascular accident (CVA), unspecified mechanism (Multi); BMI 37.0-37.9, adult; Former smoker Start: 01-17-2024 End: 01-17-2024 ambulatory [facility] Start: 01-17-2024 End: 01-17-2024 Patient encounter procedure DO Nirav House Work Phone: [facility] Work Phone: Start: 01-17-2024 End: 01-17-2024 ambulatory DO Nirav House Work Phone: [facility] Work Phone: Start: 12-26-2023 End: 12-26-2023 ambulatory DO Nirav House Work Phone: [facility] Work Phone: Start: 12-26-2023 End: 12-26-2023 Patient encounter procedure DO Nirav House Work Phone: [facility] Work Phone: Start: 12-15-2023 End: 12-15-2023 ambulatory DO NIRAV P HOUSE Facility:[facility] Start: 12-14-2023 Non-patient / Non-visit DO Shivani rles House Work Phone: [facility] Work Phone: Start: 12-08-2023 Non-patient / Non-visit DO Shivani rles House Work Phone: [facility] Work Phone: Start: 12-08-2023 End: 12-08-2023 Admission to same day surgery center DO Nirav House Work Phone: [facility] Work Phone: Start: 12-08-2023 End: 12-08-2023 ambulatory DO Nirav House Work Phone: [facility] Work Phone: Start: 10-10-2023 End: 10-10-2023 ambulatory DO NIRAV P HOUSE Facility:[facility] Start: 10-05-2023 End: 10-05-2023 ambulatory Marbin R NILL Facility: [facility] Start: 10-05-2023 End: 10-05-2023 Patient encounter procedure Marbin R NILL [facility] [place] Start: 09-21-2023 End: 09-21-2023 ambulatory Marbin R NILL Facility: [facility] Start: 09-21-2023 End: 09-21-2023 Patient encounter procedure Marbin R NILL [facility] [place] Start: 09-19-2023 End: 09-19-2023 ambulatory MD Marbin Ceballos Work Phone: [facility] Work Phone: Start: 09-19-2023 End: 09-19-2023 Patient encounter procedure MD Marbin Ceballos Work Phone: [facility] Work Phone: Start: 09-14-2023 End: 09-14-2023 ambulatory Marbin R Lin Facility:[facility] Start: 09-14-2023 End: 09-14-2023 Departed Referred MD Marbin Ceballos Work Phone: [facility] Start: 09-14-2023 End: 09-14-2023 ambulatory Marbin R NILL Facility:[id number] Start: 08-02-2023 End: 08-02-2023 ambulatory Marbin R NILL Facility: [facility] Start: 08-02-2023 End: 08-02-2023 Patient encounter procedure Marbin R NILL General Surgery [facility] Start: 07-12-2023 End: 07-12-2023 ambulatory NIRAV P HOUSE Facility: [facility] Start: 07-12-2023 End: 07-12-2023 Patient encounter procedure Marbin R NILL General Surgery [facility] Start: 04-05-2023 End: 04-05-2023 Patient encounter procedure DO Nirav Cain Work Phone: [facility] Work Phone: Start: 04-05-2023 End: 04-05-2023 ambulatory DO Nirav Cain Work Phone: [facility] Work Phone: Start: 04-04-2023 End: 04-04-2023 ambulatory Chan Taylor Other [facility] Other Start: 04-04-2023 Telephone encounter Kamterrance Taylor [facility] Start: 03-22-2023 Office outpatient vi sit 25 minutes Kamterrance Taylor [facility] Start: 03-22-2023 End: 03-22-2023 Patient encounter procedure DO Nirav Cain Work Phone: [facility] Work Phone: Start: 03-22-2023 End: 03-22-2023 ambulatory DO Nirav Cain Work Phone: [facility] Work Phone: Start: 01-27-[address] Rey Baca II Facility: Start: 01-25-2023 End: 01-26-2023 Evaluation and management of inpatient SARIAH NICHOLS [facility] Start: 01-25-2023 End: 01-26-2023 Evaluation and management of inpatient Corie Bonilla MD Work Phone: [facility] Start: 01-19-2023 End: 01-19-2023 ambulatory Marbin CEBALLOS Facility: [facility] Start: 01-19-2023 End: 01-19-2023 Patient encounter procedure Marbin CEBALLOS General Surgery [facility] Start: 01-11-2023 ambulatory NIRAV CAIN Facility: [facility] Start: 01-09-2023 End: 01-10-2023 ambulatory Marbin CEBALLOS Facility:[id number] Start: 12-21-2022 Patient encounter procedure Nirav Cain Work Phone: [facility] DO Work Phone: Start: 12-21-[address] Nirav Cain Facility:[id number] Start: 11-23-2022 Office outpatient vi sit 25 minutes Nirav Cain Work Phone: [facility] Work Phone: Start: 11-23-[address] Rey Baca II Facility: Start: 09-30-2022 End: 09-30-2022 ambulatory DO Nirav Cain Work Phone: [facility] Work Phone: Start: 09-30-2022 End: 09-30-2022 Patient encounter procedure DO Nirav Cain Work Phone: [facility] Work Phone: Start: 04-15-2022 Office outpatient vi sit 25 minutes Nirav Cain Work Phone: [facility] DO Work Phone: Start: 04-15-[address] Rey Baca II Facility: Start: 04-01-2022 End: 04-01-2022 ambulatory Chan Taylor Other [facility] Other Start: 04-01-2022 Telephone encounter Chan Taylor [facility] Start: 03-02-2022 Rx Renewal Gabriel Munoz Work Phone: [facility] DO Work Phone: Start: 02-22-2022 Encounter for genera l adult medical examination without abnormal findings DR NIRAV CAIN [facility] Start: 02-18-2022 End: 02-19-[address] NIRAV CAIN Facility:[facility] Start: 02-18-2022 End: 02-19-2022 Encounter for general adult medical examination without abnormal findings DR NIRAV CAIN Facility:[facility] Start: 11-05-2021 End: 11-05-2021 ambulatory Kamterrance Chameng Other [facility] Other Start: 11-05-2021 Telephone encounter Kamal Chaban [facility] Start: 10-23-2021 End: 10-23-2021 ambulatory Kamal Chaban Other [facility] Other Start: 10-23-2021 Telephone encounter Kamal Chaban [facility] Start: 07-29-2021 End: 07-29-2021 ambulatory Kamal Chaban Other [facility] Other Start: 07-29-2021 Office outpatient vi sit 25 minutes Kamal Shivaniban [facility] Start: 04-23-2021 End: 04-23-[address] NIRAV CAIN Facility:[facility] Start: 04-16-2021 Office outpatient vi sit 25 minutes Gabriel Munoz Work Phone: [facility] DO Work Phone: Start: 03-15-2021 Rx Renewal Rey alanis MD Work Phone: [facility] DO Work Phone: Start: 03-04-[address] NIRAV CAIN Facili ty:[facility] Start: 06-17-2017 End: 06-24-2017 Ambulatory [facility] Start: 05-31-2017 End: 06-06-2017 Ambulatory [facility] Start: 11-15-2016 End: 11-18-2016 Ambulatory [facility] Procedures Date Procedure Procedure Detail Performing Clinician Start: 12-08-2023 Screening colonoscopy Samir Cain Work Phone: Start: 12-08-2023 Colonoscopy Rey mahan DO Work Phone: Start: 09-14-2023 Repair of incisional hernia Marbin [...] CEBALLOS Start: 09-30-2022 Plain chest X-ray DO Christen Cain Work Phone: Start: 02-18-[address] JEANINE CAIN Comment on above: Performed By: #### P SAD #### [facility] [address] [place] [address] Dr. Demetria Jain Start: 09-17-2020 Colonoscopy Marbin NI NAJMA Comment on above: Colon polyp Start: 11-23-2016 Right shoulder arthroscopy with extensive glenohumeral debridement, subacromial decompression, mini-open rotator cuff repair Marbin CEBALLOS Start: 07-11-2015 Rt/Lt Heart Catheterization Marbin CEBALLOS Cardiac catheterization Gene aníbal Munoz Work Phone: Colonoscopy Marbin CEBALLOS Excision of basal ce ll carcinoma Marbin CEBALLOS Comment on above: nasolabial fold Hernia repair Gabriel Munoz Work Phone: Laparoscopy Gabriel Munoz Work Phone: Operation on skin Nirav Cain Work Phone: Operative procedure on foot Gabriel Munoz Work Phone: Repair of right ingu inal hernia Marbin NILL Small intestine excision Jero elisha FERNÁNDEZL Tonsillectomy Gabriel Munoz Work Phone: Tonsillectomy Marbin FERNÁNDEZL Total colonoscopy Gabriel Munoz Work Phone: Comment on above: august 30, 2020; Plan of Treatment Date Care Activity Detail Author Start: 12-07-2033 Screening for malignant neoplasm of colon [facility] Start: 08-09-2026 DTaP/Tdap/Td Vaccines (2 - Td or Tdap) DTaP/Tdap/Td Vaccines (2 - Td or Tdap) [facility] Start: 01-17-2025 End: 01-17-2025 Patient encounter procedure 01/17/2025 1:30 PM EDT Office Visit [facility] [address] [facility] [address] [place] [address] Rey Leiva DO [address] [facility] [address] [place] [address] [facility] Start: 01-01-2024 COVID-19 Vaccine ( season) COVID-19 Vaccine ( season) [facility] Start: 01-01-2024 COVID-19 Vaccine ( season) COVID-19 Vaccine ( season) [facility] Start: 01-01-2024 Influenza vaccination Influenza Vaccine (#1) [facility] [facility] Start: 12-08-2023 [facility] Start: 03-22-2023 [facility] Start: 01-27-2023 End: 01-27-2023 Admission to same day surgery center 01/27/2023 11:00 AM EDT - 01/27/2023 12:30 PM EDT Surgery [facility] OR [address] [place] [address] Rodolfo Hernandez MD [address] [place] [address] ERCP ENDOSCOPIC RETROGRADE CHOLANGIOPANCREATOGRAPHY, STENT PLACEMENT (C-ARM) [facility] OR Comment on above: ERCP ENDOSCOPIC RETROGRADE CHOLANGIOPANC REATOGRAPHY, STENT PLACEMENT (C-ARM) Start: 01-27-2023 End: 01-27-2023 Ercp dx collection specimen brushing/washing ERCP ENDOSCOPIC RETROGRADE CHOLANGIOPANCREATOGRAPHY Bile duct leak 01/27/2023 11:00 AM EDT [facility] Start: 01-27-2023 FUV, Provider: Rey Baca, Status: Pen, Time: 8:40 AM FUV, Provider: Rey Baca, Status: Pen, Time: 8:40 AM [facility] [employer] 250 DO Work Phone: Start: 11-30-2022 Influenza vaccination Flu vaccine (#1) [facility] Start: 11-23-2022 FUV, Provider: Rey Baca, Status: Pen, Time: 9:50 AM FUV, Provider: Rey Baca, Status: Pen, Time: 9:50 AM [facility] Work Phone: Start: 2022 RSV patients and/or patients aged 60+ years (1 - 1-dose 60+ series) RSV patients and/or patients aged 60+ years (1 - 1-dose 60+ series) [facility] Start: 04-15-2022 FUV, Provider: Rey Baca, Status: Pen, Time: 3:30 PM FUV, Provider: Rey Baac, Status: Pen, Time: 3:30 PM [facility] [employer] 250 DO Work Phone: Start: 01-13-2022 FUV, Provider: Rey Baca, Status: Pen, Time: 3:30 PM FUV, Provider: Rey Baca, Status: Pen, Time: 3:30 PM [facility] 250 DO Work Phone: Start: 04-02-2021 FUV, Provider: Rey Baca, Status: Pen, Time: 8:50 AM FUV, Provider: Rey Baca, Status: Pen, Time: 8:50 AM [facility] Work Phone: Start: 11-14-2020 COVID-19 Vaccine (3 - Moderna series) COVID-19 Vaccine (3 - Moderna series) [facility] Start: 08-30-2020 Echocardiography Echocardiogram [facility] Start: 2012 Shingles vaccine (1 of 2) Shingles vaccine (1 of 2) [facility] Start: 10-15-2007 Screening for malignant neoplasm of colon [facility] Start: 1981 DTaP/Tdap/Td vaccine (1 - Tdap) DTaP/Tdap/Td vaccine (1 - Tdap) [facility] Start: 1980 Diabetes mellitus screening Diabetes Screening [facility] Start: 1980 Hepatitis C screening [facility] Start: 1977 HIV screening HIV screen [facility] Start: 1974 Depression Screen Depression Screen [facility] Start: 1972 Lipid panel Lipids [facility] Start: 10-15-1963 MMR Vaccines (1 of 1 - Standard series) MMR Vaccines (1 of 1 - Standard series) [facility] Start: 1962 Creatinine measurement Creatinine Level [facility] Start: 1962 HIV screening HIV Screening [facility] Start: 1962 Lipid panel Lipid Panel [facility] Start: 1962 Potassium measurement Potassium Level [facility] Start: 1962 Screening for malignant neoplasm of colon [facility] Start: 1962 Yearly Adult Physical Yearly Adult Physical [facility] Alternaria alternata IgE Ab [Units/volume] in Serum [facility] Jordanian house dust mite IgE Ab [Units/volume] in Serum [facility] Jordanian Agra Ig E Ab [Units/volume] in [facility] Jordanian Agra Ig E Ab [Units/volume] in [facility] Aspergillus fumigatu s IgE Ab [Units/volume] in Serum [facility] Bermuda grass IgE Ab [Units/volume] in [facility] Boxelder IgE Ab [Units/volume] in [facility] Cat dander IgG Ab [Units/volume] in [facility] End: 01-27-2023 CBC W Auto Differential panel - Blood CBC with Auto Differential Lab Routine Daily for 3 Days starting 01/25/2023 until 01/27/2023, 2 completed [facility] Comment on above: Daily for 3 Days starting 01/25/2023 unt il 01/27/2023, 2 completed Cladosporium herbaru m IgE Ab [Units/volume] in [facility] Cockroach IgE Ab [Units/volume] in [facility] Common Ragweed IgE A b [Units/volume] in [facility] End: 01-27-2023 Comprehensive metabolic 2000 panel - Serum or Plasma Comprehensive Metabolic Panel Lab Routine Daily for 3 Days starting 01/25/2023 until 01/27/2023, 2 completed [facility] Comment on above: Daily for 3 Days starting 01/25/2023 unt il 01/27/2023, 2 completed [place] IgE Ab [Units/volume] in Serum [facility] Culture, Blood 1 [facility] Dog dander IgE Ab [Units/volume] in Serum [facility] house dust mite IgE Ab [Units/volume] in [facility] IgE [Units/volume] i n Serum or Plasma [facility] Intermittent pulse oximetry Pulse Oximetry Spot Check Respiratory Care Routine As Needed until discontinued starting 01/25/2023 [facility] Comment on above: As Needed until discontinued starting Mountain Juniper IgE Ab [Units/volume] in Serum [facility] Mouse urine proteins IgE Ab [Units/volume] in [facility] Oxygen therapy [Mini mum Data Set] Initiate Oxygen Therapy Protocol Respiratory Care Routine As Needed until discontinued starting 01/25/2023 [facility] Comment on above: As Needed until discontinued starting Patient Education Diverticulosis (DC) Colon Polypectomy (DC) Know your Meds [facility] Work Phone: Pecan or [place] Pio e IgE Ab [Units/volume] in Serum [facility] Penicillium notatum IgE Ab [Units/volume] in Serum [facility] Rough Pigweed IgE Ab [Units/volume] in Serum [facility] Saltwort IgE Ab [Units/volume] in Serum [facility] Sheep [place] IgE Ab [Units/volume] in Serum [facility] Sheep [place] IgE Ab [Units/volume] in Serum [facility] Silver Birch IgE Ab [Units/volume] in Serum [facility] Silver Birch IgE Ab [Units/volume] in Serum [facility] Benjy IgE Ab [Units/volume] in Serum [facility] [place] IgE Ab [Units/volume] in Serum [facility] White Konstantin IgE Ab [Units/volume] in Serum [facility] White Konstantin IgE Ab [Units/volume] in Serum [facility] White Elm IgG Ab [Units/volume] in Serum [facility] White mulberry IgE A b [Units/volume] in Serum [facility] White mulberry IgE A b [Units/volume] in Serum [facility] [place] IgE Ab [Units/volume] in [facility] Immunizations Immunization Date Immunization Notes Care Provider Fa cility 09-19-2020 Moderna COVID-19 Vaccine 100 MCG/0.5ML Intramuscular Suspension Gabriel Munoz Work Phone: General Surgery [facility] 08-22-2020 Moderna COVID-19 Vaccine 100 MCG/0.5ML Intramuscular Suspension Gabriel Munoz Work Phone: General Surgery [facility] 01-30-2019 pneumococcal polysaccharide vaccine, 23 valent Gabriel Munoz Work Phone: [facility] 250 DO Work Phone: NEGATED: Highlighted row has not occurred!07-12-2023 influenza virus vaccine, unspecified formulation Marbin LIN General Surgery [facility] Payers Date Payer Category Payer Managed Care (Private) [facility] Member Subscriber Plan / Payer (Effective 2022-Present) Name: Abraham Harry Relation to Subscriber: Spouse Name: GLORY HARRY Date of : 1949 (Home) Address: [address] [place] [address] Payer ID: [id number] (NAIC) Type: Not on file Address: [address] [place] [id number] 2022 Private Health Insurance [facility] [id number] 2022-Present [address] [place] [address] [id number] 2022 Private Health Insurance [id number] 2020 Medicare [id number] 2020 Medicare [id number] [id number] 1962 Unknown [id number] 2.16.840.1.866201.3.579. 2.593 1962 Unknown [id number] 2.16.840.1.646048.3.579. 2.593 1962 Unknown [id number] 2.16.840.1.748548.3.579. 2.593 1962 Unknown [id number] 2.16.840.1.352054.3.579. 2.1068 1962 Unknown [id number] 2.16.840.1.938139.3.579. 2.356 1962 Unknown [id number] 2.16.840.1.694451.3.579. 2.356 1962 Unknown [id number] 2.16.840.1.530642.3.579. 2.356 1962 Unknown [id number] 2.16.840.1.319177.3.579. 2.175 1962 Unknown [id number] 2.16.840.1.858449.3.579. 2.727 1962 Unknown [id number] 2.16.840.1.833295.3.579. 2.727 1962 Unknown [id number] 2.16.840.1.152084.3.579. 2.727 1962 Unknown [id number] 2.16.840.1.156891.3.579. 2.727 1962 Unknown [id number] 2.16.840.1.972669.3.579. 2.727 1962 Unknown [id number] 2.16.840.1.295124.3.579. 2.727 1962 Unknown [id number] 2.16.840.1.114672.3.579. 2.727 1962 Unknown [id number] 2.16.840.1.425206.3.579. 2.1244 1962 Unknown [id number] 2.16.840.1.556129.3.579. 2.1244 1962 Unknown [id number] 2.16.840.1.896769.3.579. 2.718 1962 Unknown [id number] 2.16.840.1.947878.3.579. 2.718 1962 Unknown [id number] 2.16.840.1.656685.3.579. 2.718 1959 Self-pay 1959 Unknown [id number] 2.16.840.1.257096.19 Unknown Unknown [id number] 2.16.840.1.099228.3.579. 2.531 Unknown [id number] 2.16.840.1.601357.3.579. 2.531 Unknown [id number] 2.16.840.1.729410.3.579. 2.531 Unknown [id number] 2.16.840.1.827644.3.579. 2.531 Unknown [id number] 2.16.840.1.341288.3.579. 2.531 Unknown [facility] PF [id number] Worker's Compensation [employer] [facility] [place] [id number] Social History Date Type Detail Facility Start: 01-26-2023 End: 07-25-2023 Caffeine use Caffeine use [facility] 250 DO Work Phone: Comment on above: 1 pot decaf coffee d aily; quit 2006 minimal sm oker; 1 pot coffee daily; Start: 01-26-2023 End: 07-25-2023 Sex Assigned At [facility] Start: 09-01-2019 End: 12-26-2023 Tobacco smoking status CTIS Ex-smoker (finding) [facility] Start: 1960 Sex Assigned At Male [facility] Tobacco smoking status Never Gener al Surgery [facility] Start: 01-26-2023 Tobacco smoking stat us CTIS Never smoked tobacco [facility] [employer] Work Phone: Start: 01-26-2023 End: 01-17-2024 Tobacco use and exposure Smokeless tobacco non-user [facility] [employer] Start: 1960 Sex Assigned At Not on file [facility] [employer] End: 05-02-2006 History of tobacco use Current smoker [facility] Work Phone: End: 05-02-2006 History of tobacco use Cigarette Smoker [facility] Work Phone: Start: 04-13-2024 Alcoholic beverage intake Current drinker of alcohol (finding) [facility] Work Phone: Start: 04-13-2024 Alcohol Comment occasional cocktail [facility] Work Phone: Start: 01-07-2024 End: 04-13-2024 Exposure to SARS-CoV-2 (event) Not sure [facility] Start: 01-17-2024 Alcoholic beverage intake Lifetime non-drinker (finding) [facility] Work Phone: Start: 06-25-2024 Sex Male (finding) [facility] Goals Date Patient Goal Desired Activity /State Functional Status Date Assessment Result Facility 08-02-2023 Functional Status N/A [facility] 07-12-2023 Functional Status N/A [facility] 01-19-2023 Functional Status N/A [facility] Clinical Notes 02-25-2016 to 04-15-2024 Nicanor Calvo APRN-USER EXPERIENCE DESIGNER - 04/13/2024 10:00 AM ESTPatient InstructionsRey Leiva DO - 01/17/2024 2:30 PM EDTPatient Instructions Note Date & Type Note Facility 04-15-2024 Note Entered by CHRISTEN CAIN DO on April 15, 2024 20:01:50 EST From: NIRAV CAIN DO To: [facility] [employer] [facility] #[id number] Sent: 04/15/2024 20:01:50 EST Subject: Medication Management Submitted: Complete:busPIRone (busPIRone 10 mg oral tablet) Signed by NIRAV CAIN DO 04/15/2024 20:01:00 EST Submitted: Complete:busPIRone (busPIRone 15 mg oral tablet) Signed by NIRAV CAIN DO 04/15/2024 20:01:00 EST Approved with modifications: busPIRone (BUSPIRONE 15MG TABLETS) TAKE 1 TABLET BY MOUTH THREE TIMES DAILY Qty: 90 tab(s) Days Supply: 30 Refills: 2 Substitutions Allowed Route To Pharmacy - [facility] #[id number] Note from Pharmacy: ZERO refills remain on this prescription. Your patient is requesting advance approval of refills for this medication to PREVENT ANY MISSED DOSES From: [employer] #[id number] To: NIRAV CAIN DO Sent: April 14, 2024 7:06:00 AM PARKING CONTROL OFFICER Subject: Medication Management Due: April 15, 2024 12:18:58 AM PARKING CONTROL OFFICER On Hold Pending Signature Dispensed Drug: busPIRone (busPIRone 15 mg oral tablet), TAKE 1 TABLET BY MOUTH THREE TIMES DAILY Quantity: 90 tab(s) Days Supply: 30 Refills: 0 Substitutions Allowed Notes from Pharmacy: ZERO refills remain on this prescription. Your patient is requesting advance approval of refills for this medication to PREVENT ANY MISSED DOSES [facility] 04-13-2024 History of Present illness Narrative Subjective: Abraham Harry is a 63 y.o. male with hypertension. Patient presents to the office ambulatory with steady gait, is accompanied by his . Last evaluated in clinic Dr. Leiva January 2024. At that time he had symptomatic orthostatic hypotension and spironolactone was discontinued. Patient reports in office spironolactone symptoms have completely abated. Her children were told him he could utilize spironolactone as needed for lower extremity edema, he has not needed. He continues to follow his blood pressure at home and it is optimal. He has an arm cuff that he has obtained from the [place] clinic. Systolic blood pressure ranges in the 120s. Otherwise, he ambulated up the stairs today. Blood pressure was slightly elevated when he arrived but is settled down nicely. He has no orthostatic hypotension noted in the office. Otherwise, patient denies any change in overall cardiovascular status since last evaluation in clinic. Current Outpatient Medications Medication Sig Dispense Refill albuterol (ProAir HFA) 90 mcg/actuation inhaler Inhale. As needed albuterol 2.5 mg /3 mL (0.083 %) nebulizer solution Inhale every 6 hours if needed. atorvastatin (Lipitor) 80 mg tablet Take 1 tablet (80 mg) by mouth once daily. 90 tablet 3 benralizumab (FASENRA SUBQ) Inject 1 Dose under the skin every 30 (thirty) days. busPIRone (Buspar) 15 mg tablet Take 1 tablet (15 mg) by mouth 3 times a day. cholecalciferol (Vitamin D-3) 125 MCG (5000 UT) capsule Take 1 capsule (125 mcg) by mouth once daily. clopidogrel (Plavix) 75 mg tablet Take 1 tablet (75 mg) by mouth once daily. 90 tablet 3 fluticasone propion-salmeteroL (Advair Diskus) 500-50 mcg/dose diskus inhaler Inhale 1 puff 2 times a day. Rinse mouth with water after use to reduce aftertaste and incidence of candidiasis. Do not swallow. losartan (Cozaar) 50 mg tablet TAKE 1 TABLET BY MOUTH DAILY 90 tablet 3 metoprolol succinate XL (Toprol-XL) 50 mg 24 hr tablet Take 1 tablet (50 mg) by mouth once daily. 90 tablet 3 nitroglycerin (Nitrostat) 0.[address] 1 tablet (0.4 mg) under the tongue every 5 minutes if needed for chest pain. revefenacin (Yupelri) 175 mcg/3 mL nebulizer solution Take 3 mL (175 mcg) by nebulization once daily. No current facility-administered medications for this visit. Hypertension ROS: taking medications as instructed, no medication side effects noted, no TIA's, no chest pain on exertion, no dyspnea on exertion, and no swelling of ankles. New concerns: None. Objective: BP 138/80 (BP Location: Left arm, Patient Position: Sitting) Pulse 82 Ht 1.803 m (5' 11 ) Wt 122 kg (268 lb) BMI 37.38 kg/m Appearance alert, well appearing, and in no distress. General exam BP noted to be well controlled today in office, S1, S2 normal, no gallop, no murmur, chest clear, no JVD, no HSM, no edema. Lab review: no lab studies available for review at time of visit. Assessment: Hypertension well controlled. Orthostatic hypotension resolved Plan: Through informed decision making process incorporating patients unique circumstances, the following treatment plan will be initiated: 1. Prescription drug management of cardiovascular medication for efficacy, adherence to treatment, side effect assessment and polypharmacy. Current treatment clinically warranted and to continue without modifications. 2. Return for follow-up; in the interim, contact the office if new symptoms arise. Dr. Leiva as scheduled Nicanor Calvo MSN, SIGNS AND DISPLAYS SALESPERSON-USER EXPERIENCE DESIGNER, PMHNP-[facility] [place], [place] Please excuse any errors in grammar or translation related to this dictation. Voice recognition software was utilized to prepare this document. documented in this encounter [facility] Work Phone: 04-13-2024 Instructions OYSSI Brewer - 04/13/2024 10:00 AM EST Please bring all medicines, vitamins, and herbal supplements with you when you come to the office. Prescriptions will not be filled unless you are compliant with your follow up appointments or have a follow up appointment scheduled as per instruction of your physician. Refills should be requested at the time of your visit. PLAN: Through informed decision making process incorporating patients unique circumstances, the following treatment plan will be initiated: 1. Prescription drug management of cardiovascular medication for efficacy, adherence to treatment, side effect assessment and polypharmacy. Current treatment clinically warranted and to continue without modifications. 2. Return for follow-up; in the interim, contact the office if new symptoms arise. Dr. Leiva as scheduled documented in this encounter [facility] Work Phone: 02-03-2024 Note Entered by CHRISTEN CAIN DO on February 03, 2024 12:40:56 EDT From: NIRAV CAIN DO To: [employer] #[id number] Sent: 02/03/2024 12:40:56 EDT Subject: Medication Management Submitted: Complete:busPIRone (busPIRone 10 mg oral tablet) Signed by NIRAV CAIN DO 02/03/2024 12:40:00 EDT Approved with modifications: busPIRone (BUSPIRONE 10MG TABLETS) TAKE 1 TABLET BY MOUTH TWICE DAILY Qty: 60 tab(s) Days Supply: 30 Refills: 2 Substitutions Allowed Route To Pharmacy - [facility] #[id number] From: [employer] #[id number] To: NIRAV CAIN DO Sent: February 03, 2024 10:40:51 AM CDT Subject: Medication Management Due: February 04, 2024 12:01:54 AM CDT On Hold Pending Signature Dispensed Drug: busPIRone (busPIRone 10 mg oral tablet), TAKE 1 TABLET BY MOUTH TWICE DAILY Quantity: 60 tab(s) Days Supply: 30 Refills: 0 Substitutions Allowed Notes from Pharmacy: [facility] 01-17-2024 History of Present illness Narrative Subjective Abraham Harry is a 63 y.o. male 63-year-old gentleman returns for follow-up he is doing well other than chronic complaints of orthostatic dizziness and lightheadedness, confirmed on today's examination with 10 mmHg systolic drop in blood pressure, and persistent sinus tachycardia between 90 and 100 beats a minute. He denies any chest heaviness, pressure discomfort, denies any recurrent thromboembolic or bleeding or strokelike events. He has been treated for stroke, he has known ASHD from heart catheterization at [facility] many years ago with Dr. Martinez, treated conservatively (minimal disease) He has underlying COPD, mild obesity; currently a non-smoker and nondiabetic Recommendations, after orthostatic blood pressures rechecked by myself today, I would discontinue spironolactone altogether, repeat orthostatic BPs within the next 12 weeks, hold his spironolactone for as needed for any blood pressure issues or edema related issues, otherwise follow-up in 1 year with nurse practitioner Review of Systems Cardiovascular: Positive for dyspnea on exertion, irregular heartbeat and near-syncope. Neurological: Positive for dizziness and light-headedness. All other systems reviewed and are negative. Vitals: 01/17/24 1410 01/17/24 1415 01/17/24 1505 01/17/24 1506 BP: 118/74 118/78 132/70 122/76 BP Location: Left arm Left arm Left arm Left arm Patient Position: Sitting Standing Sitting Standing Pulse: 86 90 90 Weight: 119 kg (263 lb) Height: 1.791 m (5' 10.5 ) Objective Physical Exam Constitutional: Appearance: Normal appearance. HENT: Nose: Nose normal. Neck: Vascular: No carotid bruit. Cardiovascular: Rate and Rhythm: Normal rate. Pulses: Normal pulses. Heart sounds: Normal heart sounds. Pulmonary: Effort: Pulmonary effort is normal. Abdominal: General: Bowel sounds are normal. Palpations: Abdomen is soft. Musculoskeletal: General: Normal range of motion. Cervical back: Normal range of motion. Right lower leg: No edema. Left lower leg: No edema. Skin: General: Skin is warm and dry. Neurological: General: No focal deficit present. Mental Status: He is alert. Psychiatric: Mood and Affect: Mood normal. Behavior: Behavior normal. Thought Content: Thought content normal. Judgment: Judgment normal. Allergies Patient has no known allergies. Current Medications Current Outpatient Medications: albuterol (ProAir HFA) 90 mcg/actuation inhaler, Inhale. As needed, Disp: , Rfl: albuterol 2.5 mg /3 mL (0.083 %) nebulizer solution, Inhale every 6 hours if needed., Disp: , Rfl: atorvastatin (Lipitor) 80 mg tablet, Take 1 tablet (80 mg) by mouth once daily., Disp: , Rfl: budesonide-formoteroL (Symbicort) 160-4.5 mcg/actuation inhaler, Inhale. As directed, Disp: , Rfl: busPIRone (Buspar) 10 mg tablet, Take 1 tablet (10 mg) by mouth every 12 hours., Disp: , Rfl: cholecalciferol (Vitamin D-3) 125 MCG (5000 UT) capsule, Take 1 capsule (125 mcg) by mouth once daily., Disp: , Rfl: clopidogrel (Plavix) 75 mg tablet, Take 1 tablet (75 mg) by mouth once daily., Disp: 90 tablet, Rfl: 3 fluticasone propion-salmeteroL (Advair Diskus) 500-50 mcg/dose diskus inhaler, Inhale 1 puff 2 times a day. Rinse mouth with water after use to reduce aftertaste and incidence of candidiasis. Do not swallow., Disp: , Rfl: losartan (Cozaar) 50 mg tablet, Take 1 tablet (50 mg) by mouth once daily., Disp: , Rfl: metoprolol succinate XL (Toprol-XL) 50 mg 24 hr tablet, Take 1 tablet (50 mg) by mouth once daily., Disp: , Rfl: nitroglycerin (Nitrostat) 0.4 mg SL tablet, Place 1 tablet (0.4 mg) under the tongue every 5 minutes if needed for chest pain., Disp: , Rfl: revefenacin (Yupelri) 175 mcg/3 mL nebulizer solution, Take 3 mL (175 mcg) by nebulization once daily., Disp: , Rfl: Assessment/Plan 1. ASHD (arteriosclerotic heart disease) 2. Chronic obstructive pulmonary disease, unspecified COPD type (Multi) 3. Essential hypertension 4. Hyperlipidemia, unspecified hyperlipidemia type 5. Cerebrovascular accident (CVA), unspecified mechanism (Multi) 6. BMI 37.0-37.9, adult 7. Former smoker Scribe Attestation By signing my name below, ISera LPN, Scribe attest that this documentation has been prepared under the direction and in the presence of Rey Leiva DO. Provider Attestation - Scribe documentation All medical record entries made by the Scribe were at my direction and personally dictated by me. I have reviewed the chart and agree that the record accurately reflects my personal performance of the history, physical exam, discussion and plan. documented in this encounter [facility] Work Phone: 01-17-2024 Instructions Sera Chiu LPN - 01/17/2024 2:30 PM EDT Please bring all medicines, vitamins, and herbal supplements with you when you come to the office. Prescriptions will not be filled unless you are compliant with your follow up appointments or have a follow up appointment scheduled as per instruction of your physician. Refills should be requested at the time of your visit. BMI was above normal measurement. Current weight: 119 kg (263 lb) Weight change since last visit (-) denotes wt loss 6 lbs Weight loss needed to achieve BMI 25: 86.6 Lbs Weight loss needed to achieve BMI 30: 51.4 Lbs Advised to Increase physical activity. documented in this encounter [facility] Work Phone: 12-26-2023 Evaluation note Authored December 26, 2023 2: 54pm Time spent on patient 30+ mi nutes, spent time on phone with patient in the office trying to reach claims department @ [facility]. [facility] Work Phone: 1(289) 359-893408-08-2024 History and physical note Author Harriet Galiica [facility] December 08, 2023 7:59am Note Date/Time December 08, 2023 7:5 9am [facility] [address] [place] [address] Gastroenterology H&P Signed Patient: Abraham Harry MR#: [id number] : 1960 Acct:[id number] Age/Sex: 63 / M Adm Date: 4 Loc: Room: Type: [facility] Attending Dr: Harriet Galicia DO Copies to: DO Nirav Santana DO~ Date of Service: 12/08/2023 HISTORY & PHYSICAL: Patient's history with special attention to the cardiovascular, pulmonary systems and the current problem was reviewed with the patient immediately prior to the procedure. Present medications and doses reviewed in the EMR. Allergies and pertinent laboratory tests were also reviewedat this time in the EMR. The physical examination, as below, was then performed. Indication, assessment and HPI: 63-year-old male who presents for surveillance colonoscopy for personal history of colon polyps. Last colonoscopy was 5 years ago. Family history of GI malignancy? No PHYSICAL EXAMINATION General appearance: cooperative, NAD Skin: No jaundice, no rash or lesions Head: NCAT Eyes: Anicteric Neck: Supple Lungs: Normal respiratory effort, no use of accessory muscles Abdomen: Soft, nondistended Neuro: No focal deficits, Ox3. REVIEW OF SYSTEMS Constitutional: Denies malaise, fevers Cardiovascular: Denies chest pain, palpitations Respiratory: Denies shortness of breath, wheezing Gastrointestinal: As per HPI Genitourinary: Denies dysuria, polyuria Musculoskeletal: Denies joint swelling, joint stiffness Neurological: Denies confusion, numbness, tingling Endocrine: Denies fatigue Written informed consent obtained from the patient. Risks (including but not limited to perforation, infection, bloating, bleeding, need for emergent surgeryand loss of life), benefits and alternatives explained and questions answered. The patient verbalized understanding. Based on history patient is an appropriate candidate for the procedure. Harriet Galicia DO Documented By: Harriet Galicia DO 12/08/23758 Signed By: <Electronically signed by Harriet Galicia DO> 12/08/23758 [facility] Work Phone: [phone] 608-489908-08-2024 [facility] NoteChief Complaint consultation for ventral hernia HPI Staff [...] swallowing difficulties, no hearing loss, no ear infection(s),no nose bleeds. Cardiovascular: normal blood pressure, no [...] should seek prompt medical evaluation if they wereto occur. Ordered: Creatinine CT Abdomen/Pelvis w/ Contrast [...] (07/11/2015), Colonoscopy, Excision of basal cell carcinoma, Rep air of right inguinal hernia, Tonsillectomy. Medications albuter (more content not included)...[facility]Comment [facility]:Result Comment: Electronically Signed By: LIN FENTON, Marbin Chaudhari\Date and Time Signed: 07/12/23 20:10 [id number] Evaluation + Plan note Diagnostic Tests Pending * Creatinine 07/12/23 [facility] 11-21-2023 Evaluation note* Encounter Date Diagnosis Assessment Notes Treatment Notes Treatment Clinical Notes Mar, Asthma with COPD (ICD-10 - J44.9) please arrange for dupixent if qualified [facility] Other 11-21-2023 Evaluation note* Encounter Date Diagnosis Assessment Notes Treatment Notes Treatment Clinical Notes Mar, Asthma with COPD (ICD-10 - J44.9) please arrange for dupixent if qualified Mar, Severe persistent asthma without complication (ICD-10 - J45.50) [facility] Other 09-27-2023 History of Present illness Narrative* Jennifer Melgar - 01/26/2023 5:38 PM EDT CLINICAL PHARMACY NOTE: MEDS TO BEDS Total # of Prescriptions Filled: 1 The following medications were delivered to the patient: cephalexin Additional Documentation: Pt signed form- filed sheet * Sariah Nichols MD - 01/26/2023 12:10 PM EDT Images from the original note were not included. [facility] Office: [phone] Rajat Worley DO, Nirav Leiva DO, Siva [...] Jaylon Galaviz MD, Chadd Mcmanus MD,Cass Granado, BURAK, Billie Hilliard CNP,, Abraham Foote, USER EXPERIENCE DESIGNER, Radha Arredondo, SRINI, Keke Spencer, USER EXPERIENCE DESIGNER, Ni Kowalski, USER EXPERIENCE DESIGNER, Jeana Carrizales, USER EXPERIENCE DESIGNER, Milly Harrell, USER EXPERIENCE DESIGNER, Arleen Panchal, USER EXPERIENCE DESIGNER, Elvira Godwin, USER EXPERIENCE DESIGNER, Edelmira Catalan, [facility], Maribeth Oswald, USER EXPERIENCE DESIGNER, Lisa Pacheco, USER EXPERIENCE DESIGNER [facility] IN-PATIENT SERVICE [facility] Progress Note 01/26/2023 1:43 PM Name: Abraham Harry Acct: [id number] Room: 0345/0345-02 Day: 1 Admit Date: 01/25/2023 [...] hypertension, hypercholesterolemia, questionable CAD (patient follows with scientific software developer because of sudden cardiac of his father at the age of 44 due to cardiac aneurysm and he said that scientific software developer mentioned to him that he has some changes at the bottom of his heart that need to be monitored ), stroke 2020 on clopidogrel not on aspirin, cholecystectomy and bowel resection for acute necrosis done by Dr. Ceballos on 01/10. Patient presented to [facility] for acute onset abdominal pain that [...] didshow nephrolithiasis. Discussed with GI team at [facility], transferring patient for possible CBD stone [...] , PHART , PH , POCPCO2 , [id number] , PCO2 , POCPO2 , PO2ART , PO2 , POCHCO3 , KAV9QIH , HCO3 , NBEA , PBEA , BEART , BE , THGBART , THB , BJU4SZL , SAHT7WZF , Y6CAMLID , O2SAT , FIO2 Lab Results Component [...] of bowel resection 01/25/2023 Yes Plan: Abdominal ljel-auafhvez-fwcbeckse concern for nephrolithiasis -patient thinks that he [...] MD 01/26/2023 1:43 PM [facility] Discharge instructions* Discharge Instructions* Sariah Nichols MD - 01/26/2023 1:41 PM EDT Do not take atorvastatin/Lipitor for 1 week. Follow-up with PCP Check BP before taking meds [facility] Evaluation note* Encounter Date Diagnosis Assessment Notes Treatment Notes Treatment Clinical Notes Oct, Asthma with COPD (ICD-10 - J44.9) [facility] Other 03-30-2022 Evaluation note* Encounter Date Diagnosis Assessment Notes Treatment Notes Treatment Clinical Notes Jun, Asthma with COPD (ICD-10 - J44.9) Jun, Coronary artery disease involving tangirnaq heart, unspecified vessel or lesion type, unspecified whether angina present (ICD-10 - I25.10) Jun, Orthostatic lightheadedness (ICD-10 - R42) [facility] Other 07-01-2017 History general Narrative - Reported* Type Description Date Medical History COPD Medical History heart disease Medical History congestive heart failure Medical History asthma Surgical History rotator cuff tear repair 10/2016 Surgical History Foot Surgery 2016 Surgical History hernia repair 2013 Hospitalization History See Above [facility] Other 10-26-2016 History of Present illness Narrative* Patient returns in follow-up of problems as noted. In the interim he has begun to develop anginal chest pain. He describes retrosternal pain brought about by aerobic activity and relieved with rest. Review of chart demonstrates that he had a coronary angiogram 7 years ago in [facility] where he had moderate disease treated [...] proceed with stress testing and follow-up thereafter. [facility] Work Phone: Evaluation + Plan note No data available for this section [facility] Evaluation + Plan note Future Appointments Appointment Date:10/05/2023 04:00:00 PM Scheduled Provider:Marbin CEBALLOS MD Location:[facility] Appointment Type: Post Op [facility] Evaluation noteNo InformationNort [employer] Other Evaluation noteNo assessment information available [facility] Work Phone: Evaluation note* Diagnosis Abdominal pain- [...] of biliary tract documented in this encounter [facility]* Diagnosis Onset Date Resolution Status Asthma, severe persistent ac kaibab [facility] Work Phone: Evaluation note* Diagnosis Essential hypertension Unspecified essential hypertension documented in this encounter [facility] Work Phone: Evaluation note* Diagnosis ASHD (arteriosclerotic heart disease) Coronary atherosclerosis of unspecified type of vessel, tangirnaq or graft Chronic obstructive pulmonary disease, unspecified COPD type (Multi) Essential hypertension Unspecified essential hypertension Hyperlipidemia, unspecified hyperlipidemia type Cerebrovascular accident (CVA), unspecified mechanism (Multi) BMI 37.0-37.9, adult Former smoker Personal history of tobacco use, presenting hazards to health documented in this encounter [facility] Work Phone: Evaluation note* Diagnosis Onset Date Resolution Status Admit Date History of tobacco abuse acute June 25, 2024 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 Work Phone: History of Present illness [...] diet lifestyle modification exercise and weight loss. -[facility] DO Work Phone: History of [...] before without change and follow-up next year. [facility] DO Work Phone: Hospital Discharge instructions No data available for this section [facility] Progress note No data available for this section [facility] Reason for referral (narrative)* Consultation (Routine) - Authorized Specialty Diagnoses / Procedures Referred By Dwayne machuca Referred To Contact Cardiology Diagnoses Essential hypertension Procedures Follow Up In Cardiology Rey Leiva DO [address] [facility] 2, [address] [address] Nicanor Calvo, SIGNS AND DISPLAYS SALESPERSON-USER EXPERIENCE DESIGNER [facility] [address], [address] [address] Referral ID Status Reason Start Date Expiration Date V isits Requested Visits Authorized [id number] Authorized 01/17/2024 01/16/2025 1 1 * Consultation (Routine) - Authorized Specialty Diagnoses / Procedures Referred By Contac t Referred To Contact Cardiology Diagnoses ASHD (arteriosclerotic heart disease) Procedures Follow Up In Cardiology Rey Leiva DO [address] [facility] [address], [place] [address] [place] [id number] Rey Leiva DO [address] [facility], [address] [address] Referral ID Status Reason Start Date Expiration Date V isits Requested Visits Authorized [id number] Authorized 01/17/2024 01/16/2025 1 1 [facility] Work Phone: Summary Purpose Family History No Family History [...] Heart disease Unknown Not Specified Hypertension Unknown Relationship Condition Age at Onset Recorded Date/T soco brother Hypertension Unknown Heart disease Unknown Diabetes mellitus Unknown father Unknown Hypertension Unknown grandparent Heart disease Unknown mother Hypertension Unknown Advance Directives No Advanced Directives [...] Advance Directives No August 31, 2019 3:13pm Advance Directive Response Recorded Date/ Time Advance Directives No December 26, 2023 2:30pm Advance Directive Response Recorded Date/ Time Advance Directives No December 26, 2023 1:30pm Chief Complaint ABRAHAM HARRY is being seen [...] Reason for Visit Asthma, severe persi stent Chief Complaint Unknown 6 mo f/u Asthma w COPD, Seasonal Allergies, CAD Screening Screening Reason for Visit Asthma, severe persi stent Chief Complaint Screening Screening Amb Documentation 3 mo f/u Asthma w COPD Chief Complaint Screening Screening Amb Documentation 3 mo f/u Asthma w COPD j45.50 d72.19 Reason for Visit History of tobacco a buse [facility] (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 inhaled steroids Peripheral eosinophilia Severe persistent asthma, uncomplicated Chief Complaint 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 June 25, 2024 2:30pm Reason for Visit Admit Date History of tobacco abuse June 25, 2024 2:30pm [facility] (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 inhaled stero ids June 25, 2024 2:30pm Peripheral eosinophilia June 25 2:30pm Severe persistent asthma, uncomplicated June 25, 2024 2:30pm Additional Source Comments (unrecognized sect ion and content) No Status Records FoundNo Status Records FoundNo Status Records FoundNo Status Records FoundNo Status Records FoundNo Status Records FoundNo Status Records FoundNo Status Records FoundNo Status Records FoundNo Status Records FoundNo Status Records Found INFORMATION SOURCE (unrecogn ized section and content) DATE CREATED AUTHOR 10/21/2017 [facility] DATE CREATED AUTHOR AUTHOR'S ORGANIZ ATION 04/08/2020 [facility] DATE CREATED AUTHOR AUTHOR'S ORGANIZ ATION 02/22/2022 [facility] DATE CREATED AUTHOR AUTHOR'S ORGANIZ ATION 01/08/2023 [facility] DATE CREATED AUTHOR AUTHOR'S ORGANIZ ATION 02/03/2023 [facility] DATE CREATED AUTHOR AUTHOR'S ORGANIZ ATION 02/03/2023 [facility] DATE CREATED AUTHOR AUTHOR'S ORGANIZ ATION 02/11/2023 [facility] DATE CREATED AUTHOR AUTHOR'S ORGANIZ ATION 10/07/2023 [facility] DATE CREATED AUTHOR AUTHOR'S ORGANIZ ATION 01/19/[address] [facility] DATE CREATED AUTHOR AUTHOR'S ORGANIZ ATION 04/15/2024 [facility] DATE CREATED AUTHOR AUTHOR'S ORGANIZ ATION 06/27/2024 [facility] l REASON FOR VISIT (unrecogniz ed section and content) Reason Comments Dizziness 3m bp/orthos Specialty Diagnoses / Procedures Referred By Contac t Referred To Contact Cardiology Diagnoses Essential hypertension Procedures Follow Up In Cardiology Rey Leiva S, DO [address] [facility] [address], [address] [place] [address] Phone: tel: fax: Nicanor Calvo, SIGNS AND DISPLAYS SALESPERSON-USER EXPERIENCE DESIGNER [address], [facility] [address] [place] [address] Phone: tel: fax: Referral ID Status Reason Start Date Expiration Date V isits Requested Visits Authorized [id number] Authorized 01/17/2024 01/16/2025 1 1 Care Teams (unrecognized sec tion and content) [...] Member Role Status Dates Jacqueline Anthony APRN [facility]- Attending Provider Active Start: September 19, 2023 End: September 19, 2023 Nirav Cain DO Primary Care Provider Active Start: September 19, 2023 End: September 19, 2023 DME Active Start: August End: September 19, 2023 Team Status: Inactive Member Role Status Med Cain DO Primary Care Provider Active Start: December 08, 2023 End: December 08, 2023 Harriet Galicia , DO Attending Provider Active St art: December 08, 2023 End: December 08, 2023 Team Status: Active Member Role Status Dates Nirav Cain DO Primary Care Provider Active Start: December 08, 2023 Harriet Galicia DO Attending Provider, Other Provider Active Start: December 08, 2023 Team Status: Active Member Role Status Med Cain DO Primary Care Provider Active Start: December 14, 2023 Michelle Peguero CMA Attending Provider Active St art: December 14, 2023 Team Status: Inactive Member Role Status Med Cain DO Primary Care Provider Active Start: December 26, 2023 End: December 26, 2023 Saleem Garcia DO Attending Provider Active St art: December 26, 2023 End: December 26, 2023 Team Status: Inactive Member Role Status Med Cain DO Primary Care Provider Active Start: January 17, 2024 End: January 17, 2024 Saleem Garcia DO Attending Provider Active St art: January 17, 2024 End: January 17, 2024 Medical Staff Services Manager Relationship Specialty Start Date End Date Nirav Cain DO PCP - General 04/15/22 Medical Staff Services Manager Relationship Specialty Start Date End Date Nirav Cain PCP - General 04/15/22 Team Status: Active Member Role Status Dates Gabriel Munoz MD Primary Care Provider Active Team Status: Inactive Member Role Status Dates Saleem Garcia DO Attending Provider Active St art: June 25, 2024 End: June 25, 2024 Gabriel Munoz MD Primary Care Provider Active Start: June 25, 2024 End: June 25, 2024 Goals (unrecognized section and content) Goals may [...] Discontinued 1550 (Not Given - Provider: Lisa Butler RN - Reason: Patient/family refused) enoxaparin (LOVENOX) injection 40 mg 40 mg, SubCUTAneous, DAILY, First dose on Tue01/25/23 at 1900, Until Discontinued, Indication of Use: Prophylaxis-DVT/PE, Administer by deep subCUTAneous injection with pt lying down. Alternate injection sites on abdominal wall. Do not rub site after injection. Check with provider prior to any invasive procedure. 2058 (Not Given - Provider: Elvira Su, RN - Reason: Medication not available) 1017 (Not Given - Provider: Lisa Butler RN - Reason: Medication not available) famotidine (PEPCID) 20 mg in sodium chloride (PF) 0.9 % 10 mL injection 20 mg, IntraVENous, 2 TIMES DAILY, First dose on Tue01/25/23 at 2100, Until Discontinued, IV Push over minimum of 2 minutes - Dilute with 10 mL NS 2100 (Not Given - Provider: Elvira Su RN - Reason: Patient/family refused) 1017 (Not Given - Provider: Lisa Butler RN - Reason: Patient/family refused)2100 (Due) HYDROmorphone (DILAUDID) injection 0.25 mg (COMPLETED) [...] 2130, Until Discontinued, Antimicrobial Indications: Intra-Abdominal Infection 2206 (New Bag - Provider: Elvira Su RN) 0207 (Stopped - Provider: Elvira Su RN)0556 (New Bag - Provider: Elvira Su RN)0956 (Stopped - Provider: Lisa Butler, RN)1547 (New Bag - Provider: Lisa Butler, RN)1947 (Due: Stopped - Provider: Lisa Butler [...] mL/hr, CONTINUOUS, Starting on Tue01/25/23 at 1900 9 (New Bag - Provider: Jason Su RN) [...] dose, Starting on Tue01/26/23 at 1012, Until Tue01/27/23 at 1012, Other, MRI, Immediately prior to [...] hour of each other unless specifically ordered. 190 (Given - Provider: Ruby Harper, BEN)2239 (Given - Provider: Elvira Su RN) ondansetron [...] to tolerate oral tablet. K Lab Repla rashad t Action 3.1 to 3.5 40 mEq [...] BE BASED ON THE PRIMARY CLINICAL RECORDS. [employer] [facility]. provides no warranty or guarantee of the accuracy or completeness of information in this document.
== END 2024-07-03 13:53 | disposition home or self-care (01) ==
LOC: RAD 13:58
PROVIDERS: PCP Family Medicine; Visit Provider Family Medicine
DX: J44.9 Chronic obstructive pulmonary disease, unspecified (principal)
CPT/HCPCS: 71046

== ENCOUNTER 2024-12-23 15:54 | Emergency (ER) | payer OTHER, SELFPAY ==
[2024-12-23] VITALS (21 sets, daily range): BP systolic 148–169; BP diastolic 89–95; PULSE 79–88; TEMP 37; O2SAT 94–100; BMI 35.4
--- NOTE | 2024-12-23 16:23 | XR_ITS ---
[place] [id number] Patient Name: ALMA HARRY MRN: [id number] date: 1960 Sex: M Assigned Patient Location: ED.MAIN Current Patient Location: ED.MAIN Accession/Order Number: [id number] Exam Date: 12/23/2024 16:54 Report Date: 12/23/2024 17:24 At the request of: ONEL DOZIER Procedure: XR chest 2V XR chest 2V 12/23/2024 4:58 PM SIGNS AND SYMPTOMS: ^chest pain PROTOCOL: Frontal and lateral radiographs of the chest COMPARISON: 07/03/2024 FINDINGS: The trachea is midline. The heart and mediastinal structures are within normal limits. The lung parenchyma is clear. The bony thorax is intact. XR/XR chest 2V IMPRESSION: No acute cardiopulmonary pathology. Impression dictated by: [place] Mohan M.D. 12/23/2024 5:24 PM Dictation [facility] Electronically authenticated by: [id number] Y Date: 12/23/2024 17:24
--- NOTE | 2024-12-23 16:23 | ECG_ITS ---
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
[2024-12-23 16:39] LABS: Hematocrit 37.4 % (42.0-54.0); Hemoglobin 12.9 g/dL (14.0-18.0); Immature Granulocytes Abs Auto 0.03 10^3/uL (0.00-0.03); Immature Granulocytes Pct Auto 0.4 % (0.0-0.5); Lymphocytes Absolute Auto 1.2 10^3/uL (1.2-3.8); Mean Corpuscular HGB Conc 34.5 g/dL (29.9-35.2); Mean Corpuscular Hemoglobin 31.2 pg (25.9-34.0); Mean Corpuscular Volume 90.6 fL (80.0-94.0); Platelet Count 202 10^3/uL (150-450); Red Blood Count 4.13 10^6/uL (4.70-6.10); White Blood Count 8.5 10^3/uL (4.0-11.0)
--- NOTE | 2024-12-23 16:42 | ED_ITS ---
HPI - Chest Pain General Chief Complaint: Chest Pain Stated Complaint: CHEST PAIN Time Seen by Provider: 12/23/24 16:03 Source: patient Mode of arrival: walk-in History of Present Illness HPI narrative: 64-year-old male presents with intermittent chest pain occurring throughout the day, each episode lasting only seconds. Describes the pain as a pressure sensation. He reports baseline shortness of breath but no worsening from his usual. Denies abdominal pain, recent illness, leg pain, or swelling. No treatments attempted. Current pain is 0/10. He notes no aggravating or alleviating factors. Past medical history is significant for asthma, hyperlipidemia, and hypertension. Related Data Home Medications ?Medication ?Instructions ?Recorded ?Confirmed albuterol sulfate 90 mcg/actuation 2 puff inhalation Q 6H PRN 01/09/23 12/23/24 aerosol inhaler (ProAir HFA) shortness of breath or wh eezing atorvastatin 80 mg tablet 80 mg PO DAILY 01/09/2312/01 cholecalciferol (vitamin D3) 125 5,000 unit PO DAILY 0 01/09/23 12/23/24 mcg (5,000 unit) tablet (Vitamin D3) clopidogrel 75 mg tablet 75 mg PO DAILY 01/09/2312/01 losartan 50 mg tablet 50 mg PO DAILY 01/09/2312/01 metoprolol succinate 50 mg 50 mg PO DAILY 01/09/23 tablet,extended release 24 hr albuterol sulfate 2.5 mg/3 mL 2.5 mg inhalation TID-QI D PRN 09/01/23 12/23/24 (0.083 %) solution for nebulization shortness of breat h or wheezing fluticasone 250 mcg-salmeterol 50 1 inh inhalation BID 09/01/23 12/23/24 mcg/dose blistr powdr for inhalation (Wixela Inhub) benralizumab 30 mg/mL subcutaneous mg subcut .monthly 12/23/24 syringe (Fasenra) buspirone 15 mg tablet 15 mg PO TID 12/23/24 tiotropium bromide 2.5 2 inh inhalation DAILY 12/2312/23/24 mcg/actuation mist for inhalation (Spiriva Respimat) Previous Rx's ?Medication ?Instructions ?Recorded magnesium oxide 400 mg (241.3 mg 400 mg PO DAILY #7 ta bs 12/23/24 magnesium) tablet potassium chloride 10 mEq oral 20 meq PO DAILY 5 days #5 ea 12/23/24 packet Allergies Allergy/AdvReac Type Severity Reaction Status Date / Time adhesive tape Allergy skin damage Verified 09/01/23 10:10 [facility] Medical History (Updated 12/23/24 @ 19:23 by JACOBY DURAND) Irregular heart beat ?I49.9 - Cardiac arrhythmia, unspecified (ICD-10) Ventral incisional hernia ?K43.2 - Incisional hernia without obstruction or gangrene (ICD-10) Cardiomegaly ?I51.7 - Cardiomegaly (ICD-10) Skin cancer ?C44.90 - Unspecified malignant neoplasm of skin, unspecified (ICD-10) COPD (chronic obstructive pulmonary disease) ?J44.9 - Chronic obstructive pulmonary disease, unspecified (ICD-10) CVA (cerebral vascular accident) (2019) ?I63.9 - Cerebral infarction, unspecified (ICD-10) Hyperlipidemia ?E78.5 - Hyperlipidemia, unspecified (ICD-10) Hypertension ?I10 - Essential (primary) hypertension (ICD-10) ASHD (arteriosclerotic heart disease) ?I25.10 - Atherosclerotic heart disease of [place] coronary artery without angina pectoris (ICD-10) Cancer ?C80.1 - Malignant (primary) neoplasm, unspecified (ICD-10) Acute cholecystitis ?K81.0 - Acute cholecystitis (ICD-10) Abdominal pain ?R10.9 - Unspecified abdominal pain (ICD-10) Gallstones ?K80.20 - Calculus of gallbladder without cholecystitis without obstruction (ICD-10) Surgical History (Updated 09/01/23 @ 10:04 by Azul Thompson NP) Hx of tonsillectomy ?Z90.89 - Acquired absence of other organs (ICD-10) History of hernia repair ?Z98.890 - Other specified postprocedural states (ICD-10) ?Z87.19 - Personal history of other diseases of the digestive system (ICD-10) H/O foot surgery ?Z98.890 - Other specified postprocedural states (ICD-10) H/O laparoscopy ?Z98.890 - Other specified postprocedural states (ICD-10) H/O colonoscopy ?Z98.890 - Other specified postprocedural states (ICD-10) History of cholecystectomy ?Z90.49 - Acquired absence of other specified parts of digestive tract (ICD- 10) History of cardiac catheterization ?Z98.890 - Other specified postprocedural states (ICD-10) Status post surgical removal of malignant neoplasm of skin ?Z98.890 - Other specified postprocedural states (ICD-10) Family History (Updated 01/09/23 @ 04:37 by Narendra Duenas RN) Uncle Family history of COPD (chronic obstructive pulmonary disease) Grandmother Family history of cancer Brother Family history of diabetes mellitus Father Family history of myocardial infarction Social History (Updated 01/09/23 @ 04:37 by Narendra Duenas RN) Within the past year, how often did you have a drink containing alcohol: monthly or less Within the past year, how many standard drinks containing alcohol did you have on a typical day: 1 or 2 Within the past year, how often did you have six or more drinks on one occasion: never Total score: 0 Score interpretation: A score less than 4 is consistent with normal alcohol consumption. 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 * HEENT: Normocephalic, atraumatic. Oropharynx clear. Mucous membranes moist. * Neck: Supple, no jugular venous distention, no lymphadenopathy. * Cardiac: Regular rate and rhythm, no murmurs, rubs, or gallops. Peripheral pulses 2+ and symmetric.NO pedal edema. * Respiratory: Lungs clear to auscultation bilaterally. No wheezes, rales, or rhonchi. No increased work of breathing. * Abdomen: Soft, nondistended, nontender. No rebound or guarding. * Extremities: No edema, no calf tenderness. * Skin: Warm, dry, intact. * Neuro: Alert and oriented ?3. Speech clear. Motor and sensory intact. No focal neurological deficits. Constitutional Vital Signs, click to edit/add: Last Vital Signs Temp 98.6 F 12/23/24 15:59 Pulse 80 12/23/24 19:01 Resp 20 12/23/24 19:01 BP 159/95 H 12/23/24 19:01 Pulse Ox 97 12/23/24 19:01 O2 Del Method Room Air 12/23/24 15:59 Course Vital Signs Vital signs: Vital Signs Temperature 98.6 F 12/23/24 15:59 Pulse Rate 87 12/23/24 15:59 Respiratory Rate 22 H 12/23/24 15:59 Blood Pressure 168/90 H 12/23/24 15:59 Pulse Oximetry 100 12/23/24 15:59 Oxygen Delivery Method Room Air 12/23/24 15:59 Temperature 98.6 F 12/23/24 15:59 Pulse Rate 80 12/23/24 19:01 Respiratory Rate 20 12/23/24 19:01 Blood Pressure 159/95 H 12/23/24 19:01 Pulse Oximetry 97 12/23/24 19:01 Oxygen Delivery Method Room Air 12/23/24 15:59 MDM - Chest Pain MDM Narrative Medical decision making narrative: 64-year-old male with intermittent chest pressure occurring throughout the day, each episode lasting only seconds. He has multiple cardiac risk factors. He reports baseline shortness of breath but no worsening from his usual. Denies abdominal pain, recent illness, leg pain, or swelling. No treatments attempted. Current pain is 0/10. He notes no aggravating or alleviating factors. Past medical history is significant for asthma, hyperlipidemia, and hypertension. Initial workup shows non-acute EKG changes and troponins within low, non- ischemic range. Electrolytes notable for mild hypokalemia and hypomagnesemia, which will be corrected with PO medications. Given intermittent, brief episodes of chest discomfort, GI etiology (esophageal spasm) was considered and treated symptomatically with a GI cocktail. ED attending evaluation by Dr. Garrison has been completed. Patient remains hemodynamically stable and chest pain?free at present. Heart Score 5, moderate risk due to multiple co-morbidities and age mostly. Discussed shared decision making regarding admission. Patient would like to go home as opposed to staying overnight for a chest pain rule out workup. He does understand the reasoning regardig the concern for admission, given his history. 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 He was encouraged to return with worsening or concerning symptoms and he will be discharged home at this time. Medical Records Data Attestation: I reviewed the patient's medical records. Lab Data Attestation: I reviewed the patient's lab results. Labs: Lab Results 12/23/24 12/23/24 Range/Units 16:16 18:15 WBC 8.5 (4.0-11.0) 10^3/uL RBC 4.13 L (4.70-6.10) 10^6/uL Hgb 12.9 L (14.0-18.0) g/dL Hct 37.4 L (42.0-54.0) % MCV 90.6 (80.0-94.0) fL MCH 31.2 (25.9-34.0) pg MCHC 34.5 (29.9-35.2) g/dL RDW 13.2 (11.0-15.0) % Plt Count 202 (150-450) 10^3/uL MPV 10.8 (9.5-13.5) fL Neut % (Auto) 78.9 H (43.0-75.0) % Lymph % (Auto) 14.2 L (20.5-60.0) % [place] % (Auto) 6.4 (1.7-12.0) % Eos % (Auto) 0.0 L (0.9-7.0) % Baso % (Auto) 0.1 L (0.2-2.0) % Neut # (Auto) 6.7 H (1.4-6.5) 10^3/uL Lymph # (Auto) 1.2 (1.2-3.8) 10^3/uL [place] # (Auto) 0.5 (0.3-0.8) 10^3/uL Eos # (Auto) 0.0 (0.0-0.7) 10^3/uL Baso # (Auto) 0.0 (0.0-0.1) 10^3/uL Abs Immat Gran (auto) 0.03 (0.00-0.03) 10^3/uL Imm/Tot Granulo (auto) 0.4 (0.0-0.5) % PT 9.9 (9.0-11.6) sec INR 0.93 Sodium 141 (136-145) mmol/L Potassium 3.4 L (3.5-5.1) mmol/L Chloride 106 (98-107) mmol/L Carbon Dioxide 24.1 (21.0-32.0) mmol/L Anion Gap 14.3 BUN 18.0 (7.0-18.0) mg/dL Creatinine 0.75 (0.70-1.30) mg/dL Est GFR ( Amer) >60 (>=60 mL/min/1.73m^2) Est GFR (Non-Af Amer) >60 (>=60 mL/min/1.73m^2) BUN/Creatinine Ratio 24.0 Glucose 100 (74-106) mg/dL Calcium 9.2 (8.5-10.1) mg/dL Magnesium 1.6 L (1.8-2.4) mg/dL Total Bilirubin 0.9 (0.2-1.0) mg/dL AST 28 (15-37) U/L ALT 40 (16-63) U/L Alkaline Phosphatase 93 (46-116) U/L Troponin I High Sens 10.4 9.8 (4.0-76.1) pg/mL Total Protein 7.3 (6.4-8.2) g/dL Albumin 3.8 (3.4-5.0) g/dL Globulin 3.5 g/dL Albumin/Globulin Ratio 1.1 Lipase 40.0 (16.0-77.0) U/L Imaging Data Chest x-ray: Attestation: I have reviewed the pertinent imaging results. Radiologist's impression: ITS Impressions Chest X-Ray 12/23/24 16:23 IMPRESSION: No acute cardiopulmonary pathology. Impression dictated by: [place] Mohan M.D. 12/23/2024 5:24 PM Dictation Location: [place] [address] Electronically authenticated by: [id number] Y Date: 12/23/2024 17:24 ECG Data Attestation: ?I have reviewed the pertinent ECG results. ECG interpretation date: 12/23/24 ECG interpretation time: 16:06 Prior ECG tracings: available for review Interpretation: Patient has been sinus rhythm with a ventricular rate of 80, MT interval 144, QRS of 102, QT/QTc of 366/402. Patient does have abnormal Q waves likely old compared to his previous is grossly unchanged no ST depression or elevation evaluated by Dr. Garrison ED attending. Heart Score History: Moderately Suspicious ECG: NS Repolarization Age: >45-<65 years Risk Factors: >3 Risk Factors/ HX of CAD:2 Troponin: <Normal Limit Total Heart Score Recommendations & Risks:: 5 Discharge Plan Discharge Chief Complaint: Chest Pain Clinical Impression: Atypical chest pain, Hypomagnesemia, Hypokalemia Patient Disposition: Home, Self-Care Time of Disposition Decision: 19:15 Condition: Good Mode of Transportation: Private Vehicle Prescriptions / Home Meds: New magnesium oxide 400 mg (241.3 mg magnesium) tablet 400 mg PO DAILY Qty: 7 0RF potassium chloride 10 mEq packet 20 meq PO DAILY 5 Days Qty: 5 0RF No Action losartan 50 mg tablet 50 mg PO DAILY atorvastatin 80 mg tablet 80 mg PO DAILY metoprolol succinate 50 mg tablet extended release 24 hr 50 mg PO DAILY clopidogrel 75 mg tablet 75 mg PO DAILY albuterol sulfate [ProAir HFA] 90 mcg/actuation HFA aerosol inhaler 2 puff INHALATION Q6H PRN (Reason: shortness of breath or wheezing) cholecalciferol (vitamin D3) [Vitamin D3] 125 mcg (5,000 unit) tablet 5,000 unit PO DAILY fluticasone propion-salmeterol [Wixela Inhub] 250-50 mcg/dose blister with device 1 inh inhalation BID albuterol sulfate 2.5 mg /3 mL (0.083 %) solution for nebulization 2.5 mg inhalation TID-QID PRN (Reason: shortness of breath or wheezing) Spiriva Respimat 2.5 mcg/actuation mist 2 inh inhalation DAILY buspirone 15 mg tablet 15 mg PO TID Fasenra 30 mg/mL syringe subcut .monthly Print Language: Albanian Instructions: Chest Pain (ED), Hypokalemia (ED), Hypomagnesemia (ED) Additional Instructions: You are stable and your chest pain has resolved. Your discomfort may have been caused by esophageal spasm, and you received treatment in the ED. Your potassium and magnesium levels were mildly low, so please follow up with your primary doctor to have these checked and corrected if needed. Return to the Emergency Department immediately if you develop chest pain or pressure that is severe, lasts more than a few minutes, or spreads to your arm, neck, jaw, or back, shortness of breath, dizziness, fainting, palpitations, nausea, vomiting, or sweating with chest discomfort. 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 Call your doctor if you have any questions or concerns. Referrals: Gabriel Munoz MD [Primary Care Provider, Family Practice] - 1 week Discharge Date/Time: 12/23/24 19:43
[2024-12-23 16:54] LABS: INR 0.93; Prothrombin Time 9.9 sec (9.0-11.6)
[2024-12-23 16:57] LABS: Alanine Aminotransferase 40 U/L (16-63); Albumin Globulin Ratio 1.1; Albumin Level 3.8 g/dL (3.4-5.0); Alkaline Phosphatase 93 U/L (46-116); Anion Gap 14.3; Aspartate Amino Transferase 28 U/L (15-37); Blood Urea Nitrogen 18.0 mg/dL (7.0-18.0); Calcium 9.2 mg/dL (8.5-10.1); Carbon Dioxide 24.1 mmol/L (21.0-32.0); Chloride 106 mmol/L (98-107); Estimated GFR (African America >60 (>=60 mL/min/1.73m^2); Estimated GFR (Non-African Ame >60 (>=60 mL/min/1.73m^2); Globulin 3.5 g/dL; Glucose 100 mg/dL (74-106); Lipase 40.0 U/L (16.0-77.0); Potassium 3.4 mmol/L (3.5-5.1); Sodium 141 mmol/L (136-145); Total Protein 7.3 g/dL (6.4-8.2)
[2024-12-23 17:31] LABS: Magnesium 1.6 mg/dL (1.8-2.4)
[2024-12-23] MEDS: lidocaine HCL 15 ML, MAG HYDROX/ALUMINUM HYD/SIMETH 30 ML, HYOSCYAMINE SULFATE 0.25 MG PO (18:40)
== END 2024-12-23 19:43 | disposition home or self-care (01) ==
PROVIDERS: Physician Assistant; Emergency Provider Student in an Organized Health Care Education/Training Program; PCP Family Medicine
DX: R07.89 Other chest pain (principal); E83.42 Hypomagnesemia; E87.6 Hypokalemia; R06.02 Shortness of breath
CPT/HCPCS: 36415; 71046; 80053; 83690; 83735; 84484; 85025; 85610; 93005; 99285

== ENCOUNTER 2024-12-24 14:36 | Emergency (ER) | payer OTHER, SELFPAY ==
[2024-12-24] VITALS (21 sets, daily range): BP systolic 143–164; BP diastolic 88–95; PULSE 72–91; TEMP 37.1; O2SAT 97–100; BMI 35.6
--- NOTE | 2024-12-24 14:48 | ECG_ITS ---
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
--- NOTE | 2024-12-24 15:27 | ED.GENADUL1 ---
HPI HPI - General Adult General Chief complaint: Chest Pain Stated complaint: chest pain Time Seen by Provider: 12/24/24 15:02 Source: patient and family Mode of arrival: walk-in Limitations: no limitations History of Present Illness HPI narrative: Continued chest pain worsened. Positive shortness of breath patient has chronic cough. Was seen yesterday for similar symptoms states medications did not help. Patient denies fever, chills, leg swelling, urinary bleeding, rectal bleeding, hemoptysis. He does take Plavix. Does have history of heart failure. Normal EKG. Onset (ago): day(s) (2) Location: Reports chest and back Radiation: Reports back Severity: moderate Treatments prior to arrival: Reports none Related Data Home Medications ?Medication ?Instructions ?Recorded ?Confirmed albuterol sulfate 90 mcg/actuation 2 puff inhalation Q6H PRN 01/09/23 12/23/24 aerosol inhaler (ProAir HFA) shortness of breath or wheezing atorvastatin 80 mg tablet 80 mg PO DAILY 01/09/23 12/23/24 cholecalciferol (vitamin D3) 125 5,000 unit PO DAILY 01/09/23 12/23/24 mcg (5,000 unit) tablet (Vitamin D3) clopidogrel 75 mg tablet 75 mg PO DAILY 01/09/23 12/23/24 losartan 50 mg tablet 50 mg PO DAILY 01/09/23 12/23/24 metoprolol succinate 50 mg 50 mg PO DAILY 01/09/23 12/23/24 tablet,extended release 24 hr albuterol sulfate 2.5 mg/3 mL 2.5 mg inhalation TID-QID PRN 09/01/23 12/23/24 (0.083 %) solution for nebulization shortness of breath or wheezing fluticasone 250 mcg-salmeterol 50 1 inh inhalation BID 09/01/23 12/23/24 mcg/dose blistr powdr for inhalation (Wixela Inhub) benralizumab 30 mg/mL subcutaneous mg subcut .monthly 12/23/24 syringe (Fasenra) buspirone 15 mg tablet 15 mg PO TID 12/23/24 12/23/24 tiotropium bromide 2.5 2 inh inhalation DAILY 12/23/24 12/23/24 mcg/actuation mist for inhalation (Spiriva Respimat) Previous Rx's ?Medication ?Instructions ?Recorded magnesium oxide 400 mg (241.3 mg 400 mg PO DAILY #7 tabs 12/23/24 magnesium) tablet potassium chloride 10 mEq oral 20 meq PO DAILY 5 days #5 ea 12/23/24 packet etodolac 400 mg tablet (Lodine) 400 mg PO BID #10 tabs 12/24/24 hydrocodone 5 mg-acetaminophen 325 1 tab PO Q8H PRN pain #12 tabs 12/24/24 mg tablet Allergies Allergy/AdvReac Type Severity Reaction Status Date / Time adhesive tape Allergy skin damage Verified 12/24/24 14:47 Opioid HPI Opioid Management Most Recent Opioid Data: Last Pain Scale 3 Today, 17:30 Last MAR Pain Assessment Today, 15:57 Review of Systems ROS Status of ROS 10 or more systems reviewed and unremarkable except as noted in history and below Constitutional Denies: fever or chills Ears, nose, mouth, and throat Denies: throat pain or neck pain Cardiovascular Reports: chest pain; Denies: edema Respiratory Reports: shortness of breath and cough Gastrointestinal Denies: nausea or vomiting Genitourinary Denies: painful urination or blood in urine Musculoskeletal Reports: back pain Integumentary/Breast Denies: rash Neurological Denies: headache Psychiatric Denies: anxiety [facility] Medical History (Updated 12/24/24 @ 17:40 by JACOBY RAWLS II) Irregular heart beat ?I49.9 - Cardiac arrhythmia, unspecified (ICD-10) Ventral incisional hernia ?K43.2 - Incisional hernia without obstruction or gangrene (ICD-10) Cardiomegaly ?I51.7 - Cardiomegaly (ICD-10) Skin cancer ?C44.90 - Unspecified malignant neoplasm of skin, unspecified (ICD-10) COPD (chronic obstructive pulmonary disease) ?J44.9 - Chronic obstructive pulmonary disease, unspecified (ICD-10) CVA (cerebral vascular accident) (2020) ?I63.9 - Cerebral infarction, unspecified (ICD-10) Hyperlipidemia ?E78.5 - Hyperlipidemia, unspecified (ICD-10) Hypertension ?I10 - Essential (primary) hypertension (ICD-10) ASHD (arteriosclerotic heart disease) ?I25.10 - Atherosclerotic heart disease of [place] coronary artery without angina pectoris (ICD-10) Cancer ?C80.1 - Malignant (primary) neoplasm, unspecified (ICD-10) Acute cholecystitis ?K81.0 - Acute cholecystitis (ICD-10) Abdominal pain ?R10.9 - Unspecified abdominal pain (ICD-10) Gallstones ?K80.20 - Calculus of gallbladder without cholecystitis without obstruction (ICD-10) Surgical History (Updated 09/01/23 @ 10:04 by Azul Thompson NP) Hx of tonsillectomy ?Z90.89 - Acquired absence of other organs (ICD-10) History of hernia repair ?Z98.890 - Other specified postprocedural states (ICD-10) ?Z87.19 - Personal history of other diseases of the digestive system (ICD-10) H/O foot surgery ?Z98.890 - Other specified postprocedural states (ICD-10) H/O laparoscopy ?Z98.890 - Other specified postprocedural states (ICD-10) H/O colonoscopy ?Z98.890 - Other specified postprocedural states (ICD-10) History of cholecystectomy ?Z90.49 - Acquired absence of other specified parts of digestive tract (ICD-10) History of cardiac catheterization ?Z98.890 - Other specified postprocedural states (ICD-10) Status post surgical removal of malignant neoplasm of skin ?Z98.890 - Other specified postprocedural states (ICD-10) Family History (Updated 01/09/23 @ 04:37 by Narendra Duenas RN) Uncle Family history of COPD (chronic obstructive pulmonary disease) Grandmother Family history of cancer Brother Family history of diabetes mellitus Father Family history of myocardial infarction Social History (Updated 01/09/23 @ 04:37 by Narendra Duenas RN) Within the past year, how often did you have a drink containing alcohol: monthly or less Within the past year, how many standard drinks containing alcohol did you have on a typical day: 1 or 2 Within the past year, how often did you have six or more drinks on one occasion: never Total score: 0 Score interpretation: A score less than 4 is consistent with normal alcohol consumption. 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 Known occupational exposures/hazards: No Highest level of school completed/degree received: 12th grade, no diploma Are you now , , , , never or living with a partner: Little interest or pleasure in doing things: not at all Feeling down, depressed, or hopeless: not at all Feel stressed/tense/nervous/anxious/difficulty sleeping: not at all Life stressors: other Life stressor details: Cancer Due to disability, difficulty making decisions: No Do you think of yourself as: straight/heterosexual Gender Identity: male Exam Constitutional Vital Signs, click to edit/add: Last Vital Signs Pulse 72 12/24/24 17:10 Resp 17 12/24/24 17:10 BP 163/89 H 12/24/24 17:00 Pulse Ox 99 12/24/24 17:10 O2 Del Method Room Air 12/24/24 14:41 Documenting provider has reviewed patient's vital signs: yes Common normals: oriented x3; apparent distress General appearance: cooperative and comfortable HENMT Common normals: normocephalic Head and scalp: normal to inspection Nose: external nose normal General ear: hearing not grossly impaired External ear: external ears normal External auditory canal: EACs normal Tympanic membrane: TMs normal bilaterally Eye Common normals: PERRL and conjunctivae normal Neck & C-Spine Common normals: full ROM and supple Chest Common normals: palpation of chest abnormal Chest: tenderness (Bilateral upper tenderness and right posterior tenderness) Respiratory Common normals: normal respiratory effort Effort & inspection: able to speak in complete sentences Auscultation: clear to auscultation bilaterally Cardio Common normals: regular rate, regular rhythm, S1 normal heart sound and S2 normal heart sound GI Common normals: Normal to inspection, nondistended, normoactive bowel sounds present, soft to palpation and non-tender Common normals: no CVA tenderness Back & Pelvis Common normals: no CVA tenderness and thoracic and lumbar spine normal to inspection Extremity Common normals: normal to inspection and no pedal edema Neuro Common normals: oriented x3 and moves all extremities Course Vital Signs Vital signs: Vital Signs Pulse Rate 91 H 12/24/24 14:41 Respiratory Rate 18 12/24/24 14:41 Blood Pressure 152/95 H 12/24/24 14:41 Pulse Oximetry 99 12/24/24 14:41 Oxygen Delivery Method Room Air 12/24/24 14:41 Pulse Rate 72 12/24/24 17:10 Respiratory Rate 17 12/24/24 17:10 Blood Pressure 163/89 H 12/24/24 17:00 Pulse Oximetry 99 12/24/24 17:10 Oxygen Delivery Method Room Air 12/24/24 14:41 Medical Decision Making MDM Narrative Medical decision making narrative: Patient seen for chest pain yesterday states medication not helping his chest pain. Patient has reproducible chest wall tenderness to palpation states it is moving around has moved from right to left also under his back he does have cough which is not new he has shortness of breath which is not a new finding with COPD. Will add Toradol 30 mg IV CBC CMP troponin x 2 CK and CTA chest. For possible blood clotting disorder. Patient had improvement but not resolution of symptoms will add Lodine twice daily for 5 days Plaza 5 mg 1 every 8 hours #12 local pharmacy discussed plan of care patient at length including do not drive or operate equipment while taking Plaza as it may cause drowsiness. 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 Patient follow-up with primary care and his cardiology return to if any symptoms worsen or new symptoms develop. Differential Diagnosis Differential Diagnosis: Atypical chest pain Lab Data Lab results reviewed: Yes I reviewed the patient's lab results Labs: Lab Results 12/24/24 12/24/24 Range/Units 15:34 16:24 WBC 8.0 (4.0-11.0) 10^3/uL RBC 4.30 L (4.70-6.10) 10^6/uL Hgb 13.6 L (14.0-18.0) g/dL Hct 39.0 L (42.0-54.0) % MCV 90.7 (80.0-94.0) fL MCH 31.6 (25.9-34.0) pg MCHC 34.9 (29.9-35.2) g/dL RDW 13.3 (11.0-15.0) % Plt Count 222 (150-450) 10^3/uL MPV 10.7 (9.5-13.5) fL Neut % (Auto) 79.6 H (43.0-75.0) % Lymph % (Auto) 14.9 L (20.5-60.0) % [place] % (Auto) 5.0 (1.7-12.0) % Eos % (Auto) 0.0 L (0.9-7.0) % Baso % (Auto) 0.1 L (0.2-2.0) % Neut # (Auto) 6.4 (1.4-6.5) 10^3/uL Lymph # (Auto) 1.2 (1.2-3.8) 10^3/uL [place] # (Auto) 0.4 (0.3-0.8) 10^3/uL Eos # (Auto) 0.0 (0.0-0.7) 10^3/uL Baso # (Auto) 0.0 (0.0-0.1) 10^3/uL Abs Immat Gran (auto) 0.03 (0.00-0.03) 10^3/uL Imm/Tot Granulo (auto) 0.4 (0.0-0.5) % Sodium 143 (136-145) mmol/L Potassium 3.6 (3.5-5.1) mmol/L Chloride 105 (98-107) mmol/L Carbon Dioxide 26.6 (21.0-32.0) mmol/L Anion Gap 15.0 BUN 17.0 (7.0-18.0) mg/dL Creatinine 0.79 (0.70-1.30) mg/dL Est GFR ( Amer) >60 (>=60 mL/min/1.73m^2) Est GFR (Non-Af Amer) >60 (>=60 mL/min/1.73m^2) BUN/Creatinine Ratio 21.5 Glucose 101 (74-106) mg/dL Calcium 9.4 (8.5-10.1) mg/dL Magnesium 1.7 L (1.8-2.4) mg/dL Total Bilirubin 1.0 (0.2-1.0) mg/dL AST 29 (15-37) U/L ALT 44 (16-63) U/L Alkaline Phosphatase 103 (46-116) U/L Total Creatine Kinase 176 (39-308) U/L Troponin I High Sens 9.4 9.8 (4.0-76.1) pg/mL Total Protein 7.5 (6.4-8.2) g/dL Albumin 3.8 (3.4-5.0) g/dL Globulin 3.7 g/dL Albumin/Globulin Ratio 1.[address] scan - chest: Radiologist's impression: ITS Impressions Chest CTA 12/24/24 15:42 IMPRESSION: No acute cardiopulmonary pathology. There is no evidence of pulmonary embolism. Impression dictated by: Denton Mohan M.D. 12/24/2024 4:04 PM Dictation Location: [place] [address] Electronically authenticated by: [id number] Y Date: 12/24/2024 16:04 ECG Data Interpretation: Sinus rhythm occasional PVC noted rate 90 GA interval 154 ms QRS 98 ms QTc 397 ms Discharge Plan Discharge Chief Complaint: Chest Pain Clinical Impression: Atypical chest pain, Chest pain Patient Disposition: Home, Self-Care Time of Disposition Decision: 17:40 Condition: Good Mode of Transportation: Private Vehicle Prescriptions / Home Meds: New etodolac [Lodine] 400 mg tablet 400 mg PO BID Qty: 10 0RF hydrocodone-acetaminophen 5-325 mg tablet 1 tab PO Q8H PRN (Reason: pain ) Qty: 12 0RF No Action losartan 50 mg tablet 50 mg PO DAILY atorvastatin 80 mg tablet 80 mg PO DAILY metoprolol succinate 50 mg tablet extended release 24 hr 50 mg PO DAILY clopidogrel 75 mg tablet 75 mg PO DAILY albuterol sulfate [ProAir HFA] 90 mcg/actuation HFA aerosol inhaler 2 puff INHALATION Q6H PRN (Reason: shortness of breath or wheezing) cholecalciferol (vitamin D3) [Vitamin D3] 125 mcg (5,000 unit) tablet 5,000 unit PO DAILY fluticasone propion-salmeterol [Wixela Inhub] 250-50 mcg/dose blister with device 1 inh inhalation BID albuterol sulfate 2.5 mg /3 mL (0.083 %) solution for nebulization 2.5 mg inhalation TID-QID PRN (Reason: shortness of breath or wheezing) Spiriva Respimat 2.5 mcg/actuation mist 2 inh inhalation DAILY buspirone 15 mg tablet 15 mg PO TID Fasenra 30 mg/mL syringe subcut .monthly magnesium oxide 400 mg (241.3 mg magnesium) tablet 400 mg PO DAILY Qty: 7 0RF potassium chloride 10 mEq packet 20 meq PO DAILY 5 Days Qty: 5 0RF Print Language: Welsh Referrals: Gabriel Munoz MD [Primary Care Provider, Family Practice] - 1 week
--- NOTE | 2024-12-24 15:42 | CT_ITS ---
[address] [address] Patient Name: ALMA HARRY MRN: [id number] date: 1960 Sex: M Assigned Patient Location: ER Current Patient Location: ER Accession/Order Number: [id number] Exam Date: 12/24/2024 15:30 Report Date: 12/24/2024 16:04 At the request of: BUCK DOZIER Procedure: CT angio chest CT angio chest 12/24/2024 3:44 PM SIGN AND SYMPTOMS: recurrent chest pain /sob CONTRAST: 100 mL of intravenous Omnipaque 350 TECHNIQUE: Multidetector CT axial slices of the chest were obtained with IV contrast. Multiplanar reformats were performed and viewed on a separate workstation and reviewed to further define anatomy and possible pathology. CT was performed with one or more of the following dose reduction techniques: Automated exposure control, adjustment of the mA and/or kV according to patient size, or use of iterative reconstruction technique. COMPARISON: 01/25/2023. FINDINGS: Lower neck: Thyroid gland within normal limits, no supraclavicle adenopathy. Vessels: Atherosclerotic changes are present in the thoracic aorta, origins of the great vessels, and coronary arteries. There is no evidence of pulmonary embolism. Mediastinum and Su: Within normal limits. Heart: Normal size. No pericardial effusion. Airways: Within normal limits Lungs: There is a 7 mm calcified granuloma in the right lower lobe. Pleura: Within normal limits. Chest Wall: Within normal limits. Upper Abdomen: Within normal limits. Bones: Within normal limits. CT/CT angio chest IMPRESSION: No acute cardiopulmonary pathology. There is no evidence of pulmonary embolism. Impression dictated by: Denton Mohan M.D. 12/24/2024 4:04 PM Dictation Location: [facility] Electronically authenticated by: [id number] Y Date: 12/24/2024 16:04
[2024-12-24 15:47] LABS: Hematocrit 39.0 % (42.0-54.0); Hemoglobin 13.6 g/dL (14.0-18.0); Immature Granulocytes Abs Auto 0.03 10^3/uL (0.00-0.03); Immature Granulocytes Pct Auto 0.4 % (0.0-0.5); Lymphocytes Absolute Auto 1.2 10^3/uL (1.2-3.8); Mean Corpuscular HGB Conc 34.9 g/dL (29.9-35.2); Mean Corpuscular Hemoglobin 31.6 pg (25.9-34.0); Mean Corpuscular Volume 90.7 fL (80.0-94.0); Platelet Count 222 10^3/uL (150-450); Red Blood Count 4.30 10^6/uL (4.70-6.10); White Blood Count 8.0 10^3/uL (4.0-11.0)
[2024-12-24] MEDS: KETOROLAC TROMETHAMINE 30 MG/ML VIAL IVP (15:57)
[2024-12-24 16:02] LABS: Magnesium 1.7 mg/dL (1.8-2.4)
[2024-12-24 16:08] LABS: Creatine Kinase 176 U/L (39-308)
[2024-12-24 16:10] LABS: Alanine Aminotransferase 44 U/L (16-63); Albumin Globulin Ratio 1.0; Albumin Level 3.8 g/dL (3.4-5.0); Alkaline Phosphatase 103 U/L (46-116); Anion Gap 15.0; Aspartate Amino Transferase 29 U/L (15-37); Blood Urea Nitrogen 17.0 mg/dL (7.0-18.0); Calcium 9.4 mg/dL (8.5-10.1); Carbon Dioxide 26.6 mmol/L (21.0-32.0); Chloride 105 mmol/L (98-107); Estimated GFR (African America >60 (>=60 mL/min/1.73m^2); Estimated GFR (Non-African Ame >60 (>=60 mL/min/1.73m^2); Globulin 3.7 g/dL; Glucose 101 mg/dL (74-106); Potassium 3.6 mmol/L (3.5-5.1); Sodium 143 mmol/L (136-145); Total Protein 7.5 g/dL (6.4-8.2)
[2024-12-24] MEDS: HYDROCODONE/ACET 5-325 MG TABLET 1 TAB PO (17:30)
== END 2024-12-24 17:57 | disposition home or self-care (01) ==
PROVIDERS: Physician Assistant; Emergency Provider Student in an Organized Health Care Education/Training Program; PCP Family Medicine
DX: R07.89 Other chest pain (principal); R06.02 Shortness of breath; Z79.02 Long term (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 antithrombotics/antiplatelets; I50.9 Heart failure, unspecified; Z90.49 Acquired absence of other specified parts of digestive tract; Z87.891 Personal history of nicotine dependence; J44.9 Chronic obstructive pulmonary disease, unspecified
CPT/HCPCS: 36415; 71275; 80053; 82550; 83735; 84484; 85025; 93005; 96374; 99285; J1885; Q9967

== ENCOUNTER 2025-01-15 07:02 | Outpatient (OUT) | payer OTHER, SELFPAY ==
--- OUTSIDE RECORDS SUMMARY | 2024-08-14 10:24 | XMS_ITS | Continuity of Care Document ---
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 No food or drinks for 30 minutes after. Use for 7 days - Active Incruse Ellipta 62.5 mcg/actuation powder for inhalation - Active amoxicillin 875 mg-potassium clavulanate 125 mg tablet TAKE 1 TABLET BY MOUTH EVERY 12 HOURS - Active benzonatate 200 mg capsule TAKE 1 CAPSULE BY MOUTH THREE TIMES DAILY - Active levofloxacin 750 mg tablet - Active prednisone 20 mg tablet - Active atorvastatin 80 mg tablet TAKE 1 TABLET BY MOUTH EVERY DAY - Active buspirone 15 mg tablet - Act mely losartan 100 mg tablet - Act mely metoprolol succinate ER 50 mg tablet,extended release 24 hr - Active codeine 10 mg-guaifenesin 100 mg/5 mL oral liquid TAKE 5 ML BY MOUTH EVERY 4 HOURS NEEDED FOR COUGH - Active spironolactone 50 mg tablet TAKE 1 TABLET BY MOUTH EVERY DAY - Active hydrocodone 5 mg-acetaminophen 325 mg tablet TAKE 1 TABLET BY MOUTH EVERY 6 HOURS NEEDED FOR MODERATE PAIN - Active ibuprofen 600 mg tablet TAKE 1 TABLET BY MOUTH EVERY 6 HOURS - Active amoxicillin 500 mg capsule TAKE ONE CAPSULE BY MOUTH FOUR TIMES DAILY UNTIL ALL TAKEN - Active albuterol sulfate 0.63 mg/3 mL solution for nebulization - Active Yupelri 175 mcg/3 mL solution for nebulization inhale 3 milliliter by nebulization route every day 175 MCG - Active Wixela Inhub 500 mcg-50 mcg/dose powder for inhalation inhale 1 puff by inhalation route 2 times every day approximately 12 hours apart at the same times each day 1.00 puff - Active clopidogrel 75 mg tablet take 1 tablet by oral route every day 75 MG - Active Vitamin D3 125 mcg (5,000 unit) tablet - Active Fasenra 30 mg/mL subcutaneous syringe inject 1 milliliter by subcutaneous route every 8 weeks in the abdomen, thigh, or upper arm 30 MG - Active Procedures Procedure Date Oral Hygiene Instruction Treatment Not Completed [id number] Additional Jul Limited Oral Eval Prophylaxis Adult Nutrit Couns For [facility] [place] Dis Jul Oral Hygiene Instruction Treatment Not Completed Oral Hygiene Instruction Intraoral-complete Series (bw) 25 Comp Oral Eval New/estab Patient 2024 Oral Hygiene Instruction Advance Directives Directive Yes / No Effective Date File Name No Information Encounters Encounter Description Practice Location Reason(s) For Visit Diagnoses Date Provider Providers Copied on Encounter [facility], [address] [place] [address], [id number], [place] tel:[phone] [facility] Dental Clinic DL (chief complaint) Encounter for screening for dental disorders Angelito APARICIO Yikofi. [address] [place] [address], [id number], [place]. tel:[phone] [facility], [address] [place] [address], [id number], [place] tel:[phone] Dental Clinic dl (chief complaint) Encounter for screening for dental disorders Robbi Menendez. [address], [place], [id number] , [place]. tel:[phone] [facility], [address] [place] [address], [id number], [place] tel:[phone] [facility] Dental [facility] [place] (chief complaint) Body mass index [BMI] 36.0-36.9, adultEncounter for screening for dental disorders Eaton DDS Yixue. [address] [place] [address], [id number], [place]. tel:[phone] [facility], [address] [place] [address], [id number], [place] tel:[phone] [facility] Dental Clinic fill (chief complaint) Encounter for screening for dental disorders Eaton DDS Yixue. [address] [place] [address], [id number], [place]. tel:[phone] [facility], [address] [place] [address], [id number], [place] tel:[phone] [facility] Dental Clinic Dental new (chief complaint) Body mass index [BMI] 36.0-36.9, adultEncounter for screening for dental disorders Eaton DDS Yixue. [address] [place] [address], [id number], [place]. tel:[phone] [facility], [address] [place] [address], [id number], [place] tel:[phone] Dental Clinic No Information Eaton DDS Yixue. [address] [place] [address], [id number], [place]. tel:[phone] Family History Family Member Type Diagnosis Age At Onset No Information Payers Payer name Insurance type Covered republican ID Authoriza tion(s) No Information Social History Type Description Quantity Date Captured Comments Alcohol Use Details Unknown Caffeine Use Details Unknown Tobacco Use Status Current non-smoker Smoking Status Never smoker Sex Male Sexual Orientation Straight or heterosexual Jun Gender Identity Male Chief Complaint And Reason For Visit From encounter dated '08/14/2024 14:24'. DL (chief complaint). Description: Dental limited Reason For Referral Reason For Referral No Information Plan Of Treatment Date Type Action Status Goal FOBT. Due on due Goal Influenza vaccine. Due on Ap due Goal Colonoscopy. Due on due Goal Zoster vaccine (). Due on due Goal Tdap Vaccine. Due on 2024 due Goal Lipid panel. Due on due Goal Unhealthy drug use screening . Due on due Goal Tdap. Due on due Goal Hepatitis C screening. Due o n due Goal FIT. Due on due Goal FIT-DNA. Due on due Goal Depression screening. Due on due Goal PRAPARE ASSESSMENT. Due on A due Goal CT-Colonography. Due on due Goal FIT. Due on due Goal Tdap Vaccine. Due on 2024 due Goal Colonoscopy. Due on due Goal Tdap. Due on due Goal FIT-DNA. Due on due Goal Zoster vaccine (). Due on due Goal Unhealthy drug use screening . Due on due Goal PRAPARE ASSESSMENT. Due on A due Goal CT-Colonography. Due on due Goal FOBT. Due on due Goal Influenza vaccine. Due on Ap due Goal Hepatitis C screening. Due o n due Goal Depression screening. Due on due Goal Lipid panel. Due on due Goal Hep A. Due on du e Goal Lipid panel. Due on due Goal Influenza vaccine. Due on due Goal FIT-DNA. Due on due Goal Depression screening. Due on due Goal Tdap Vaccine. Due on 2024 due Goal Zoster vaccine (). Due on due Goal PRAPARE ASSESSMENT. Due on A due Goal Hepatitis C screening. Due o n due Goal Colonoscopy. Due on due Goal FOBT. Due on due Goal FIT. Due on due Goal Tdap. Due on due Goal Unhealthy drug use screening . Due on due Goal CT-Colonography. Due on due Goal Dietary manageme nt education, guidance, and counseling completed Goal Hep A. Due on du e Goal Hepatitis C screening. Due o n due Goal Influenza vaccine. Due on due Goal Colonoscopy. Due on due Goal Unhealthy drug use screening . Due on due Goal FOBT. Due on due Goal FIT. Due on due Goal FIT-DNA. Due on due Goal Tdap Vaccine. Due on 2024 due Goal Lipid panel. Due on due Goal PRAPARE ASSESSMENT. Due on due Goal Depression screening. Due on due Goal CT-Colonography. Due on due Goal Tdap. Due on due Goal Zoster vaccine (). Due on due Goal Colonoscopy. Due on due Goal FOBT. Due on due Goal FIT. Due on due Goal Hepatitis C screening. Due o n due Goal PRAPARE ASSESSMENT. Due on due Goal Zoster vaccine (). Due on due Goal FIT-DNA. Due on due Goal Depression screening. Due on due Goal Influenza vaccine. Due on due Goal Tdap. Due on due Goal Tdap Vaccine. Due on 2024 due Goal Unhealthy drug use screening . Due on due Goal CT-Colonography. Due on due Goal Lipid panel. Due on due Goal Hep A. Due on du e Goal Dietary manageme nt education, guidance, and counseling completed Goal FOBT. Due on due Goal Depression screening. Due on due Goal Colonoscopy. Due on due Goal Influenza vaccine. Due on due Goal Unhealthy drug use screening . Due on due Goal Zoster vaccine (). Due on due Goal Hepatitis C screening. Due o n due Goal PRAPARE ASSESSMENT. Due on due Goal Tdap Vaccine. Due on 2024 due Goal FIT. Due on due Goal Lipid panel. Due on due Goal Tdap. Due on due Goal FIT-DNA. Due on due Goal CT-Colonography. Due on due Appointment Abraham Bhatt BOOKED History Of Present Illness Encounter Date Complaint History Of Prese nt Illness DL Dental limited dl dl JACOBY DOZIER fill Dental new Dental new, esta b dental care, UL sensitivity Functional Status Date Functional Assessmen t No Information Instructions Date Instruction Additional Infor mation Dietary management e ducation, guidance, and counseling Related to Body mass index [BMI] 36.0-36.9, adult Giving encouragement to exercise Related to Body mass index [BMI] 36.0-36.9, adult Dietary management e ducation, guidance, and counseling Related to Body mass index [BMI] 36.0-36.9, adult Assessments Type Assessment Date No Information Patient Care Teams Name Effective Dates (start - stop) Status Members No Information
--- OUTSIDE RECORDS SUMMARY | 2024-12-24 11:30 | XMS_ITS ---
Author Organization [facility] in [place] Address [address] [place] [address] Care Team Providers Care Retort Operator Name Role Phone Gene Munoz Primary Care Provider [phone] Saleem Irene [phone] REASON FOR VISIT 3m F/U - Asthma Encounters Encounter Location Date Provider Diagnosis Pulmonary Medicine [address] [address] 12/24/2024 Saleem Garcia Plan Of Treatment No Information Progress Notes * Abraham BHATT LDOB: [birth year] (64 yo M)Acc No.[id number]:12/24/2024 UNLOCKED PROGRESS NOTE Follow Up Patient: Abraham DICKEY Provider: Isabelle Garcia DO :1960 A ge:64 Y S ex:Male Date:12/24/2024 Address:[address], [id number] Pcp:Gene Munoz Subjective: * Chief Complaints: * 1 . 3m F/U - Asthma. * Medical History: Objective: * Vitals: Assessment: Plan: * Treatment: * * Electronic signature of Kristin Garcia DO on 01/15/2025 at 07:05 AM EDT Sign off status: Pending Visit Status: O FF CANC (OFFICE CANCEL) * Provider: Isabelle Garcia DO Date: 0 12/24/2024 Generated for Mason ramirez/Pablo/eTransmitting on: 0 01/15/2025 07:05 AM EDT
--- OUTSIDE RECORDS SUMMARY | 2024-12-24 12:30 | XMS_ITS ---
Author Organization [facility] in [place] Address [address] [place] [address] Care Team Providers Care Investigator Narcotics Name Role Phone Gene Munoz Primary Care Provider [phone] REASON FOR VISIT f/u ER Encounters Encounter Location Date Provider Diagnosis [facility] [address] [place] [address] 12/24/2024 Gene Munoz Plan Of Treatment No Information Progress Notes * Abraham HARRY LDOB: [birth year] (64 yo M)Acc No.[id number]:12/24/2024 UNLOCKED PROGRESS NOTE Progress Note Patient: Abraham DICKEY Provider: Samir Munoz MD (TTC) :1960 A ge:64 Y S ex:Male Date:12/24/2024 Address:[address] [place], [id number] Subjective: * Chief Complaints: * 1 . f/u ER. * Medical History: Objective: * Vitals: Assessment: Plan: * Treatment: * * Electronic signature of Gene Munoz MD, [phone] on 01/15/2025 at 07:05 AM EDT Sign off status: Pending Visit Status: C ANC (Cancelled) * Provider: Samir Munoz MD (TTC) Date: 0 12/24/2024 Generated for Printi ng/Faxing/eTransmitting on: 0 01/15/2025 07:05 AM EDT
--- OUTSIDE RECORDS SUMMARY | 2025-01-02 09:30 | XMS_ITS ---
Author Organization [facility] [place] Address [address] [place] [address] Care Team Providers Care Manager Ambulatory Name Role Phone Gene Munoz Primary Care Provider [phone] Allergies No Known Allergies REASON FOR VISIT ER Follow Up, Lung Inflammation, COPD/ Asthma, Upcoming Surgery - Dr. Sanon (Hernia Repair) Medications Medication SIG (Take, Route, Frequency, Duration) Notes Start Date End Date Status Wixela Inhub 500-50 MCG/ACT 1 puff Inhal ation BID; Duration: 90 days 05/17/2024 Active predniSONE 20 MG 2 tablets Orally Onc e a day; Duration: 5 days 01/02/2025 Active Vitamin D3 125 MCG (5000 UT) 1 capsule Orally Once a day 05/17/2024 Active Azithromycin 250 MG 2 tabs today then 1 tab Orally daily; Duration: 5 days 01/02/2025 Active Spiriva Respimat 2.5 MCG/ACT 2 puffs Inhalation Once a day; Duration: 90 days Active Fasenra 30 MG/ML 1 null Subcutaneous; Duration: 30 day(s) 05/28/2024 Active Losartan Potassium 100 MG 1 tablet Orall y Once a day; Duration: 30 days 05/17/2024 Active busPIRone HCl 15 MG 1 tablet Orally thre e times daily 05/17/2024 Active Clopidogrel Bisulfate 75 MG 1 tablet Ora lly Once a day 05/17/2024 Active Metoprolol Succinate ER 50 MG 1 tablet Orally Once a day 05/17/2024 Active Azelastine HCl 0.05 % 1 drop into affect ed eye Ophthalmic qd 06/28/2024 Active Benzonatate 200 MG 1 capsule Orally Thr ee times a day 12/13/2024 Active Atorvastatin Calcium 80 MG 1 tablet Oral ly Once a day 05/17/2024 Active Albuterol Sulfate (2.5 MG/3ML) 0.083% 3 mL as needed Inhalation every 6 hrs 05/17/2024 Active Albuterol Sulfate HFA 108 (90 Base) MCG/ACT 2 puff as needed Inhalation every 4 hrs 12/13/2024 Active Social History Tobacco Use: Social History Observation Description Date Details (start date - stop date) Former Smoker 05/02/1998 - 05/02/2007 Tobacco Control (Standard) Question Answer Notes Tobacco use: Former smoker When did you start smoking? 05/02/1998 When did you stop smoking? 05/02/2007 How long has it been since you last smoked? Grea ter than 10 years Additional Findings: Tobacco non-user Ex-light c igarette smoker (1-9/day) AUDIT-C (Standard) Question Answer Notes Did you have a drink containing alcohol in the p ast year? No Points 0 Interpretation Negative Problems Problem Type SNOMED Code ICD Code Onset Dates Problem Status W/U Status Risk Notes Problem Chest pain (90225409) Costochondral chest pain (R07.89) Active confirmed Vital Signs Weight 263 lbs 01/02/2025 Height 71.5 in 01/02/2025 Blood pressure systolic 162 mm Hg 01/03/20 25 Blood pressure diastolic 82 mm Hg 025 BMI 36.17 kg/m2 01/02/2025 Encounters Encounter Location Date Provider Diagnosis [facility] [address] [place] [address] 01/02/2025 Gene Munoz Costochondral chest pain R07.89 and Hypertension I10 Assessments Encounter Date Diagnosis (ICD Code) Assessment Notes Treatment Notes Treatment Clinical Notes Section Notes 01/02/2025 Costochondral chest pain (ICD-10 - R07.89) 01/02/2025 Hypertension (ICD-10 - I10) Plan Of Treatment Medication Medication Name Sig Start Date Stop Date Notes predniSONE 20 MG 2 tablets Orally Onc e a day; Duration: 5 days 01/02/2025 Azithromycin 250 MG 2 tabs today then 1 tab Orally daily; Duration: 5 days 01/02/2025 Medications Administered Medication Instructions Date of Administration Dosage Notes Dexamethasone, 4mg/mL 01/02/2025 8 mg Ketorolac Tromethamine 01/02/2025 60 mg Progress Notes * Abraham BHATT LDOB: [birth year] (64 yo M)Acc No.[id number]:01/02/2025 Progress Note Patient: Abraham DICKEY Provider: Samir Munoz ([facility])MD :1960 A ge:64 Y S ex:Male Date:01/02/2025 Address:[address] [place] [address] [place], [id number] Check In:01:06 PM ESTCheck O ut:02:06 PM EST Subjective: * Chief Complaints: * E R Follow UpLung InflammationCOPD/ AsthmaUpcoming Surgery - Dr. Sanon (Hernia Repair) * HPI: G eneral: ended up in ER- twice - CAD testing all good HTN - low at home at [facility] high at times Having repair. * ROS: E ENT: hearing changes d enies. v isual changes d enies.?non-healing mouth sores d enies. s wollen glands or neck lumps d enies. h oarseness d enies. s ore throat d enies. d ifficulty swallowing d enies. n ose bleeds d enies. n basil congestion d enies. e ar ache d enies. e ar discharge?denies. r inging in ears d enies. l ight sensitivity d enies. e ye pain d enies. b lurring d enies. e ye irritation d enies. d ouble vision d enies.?vision loss d enies. G eneral/Constitutional: Sweats: D enies. F atigue d enies. S leep problems d enies. A norexia d enies. M alaise d enies. W eight loss d enies.?Fatigue or Weakness d enies. F ever or Chills d enies. C ardiovascular: Shortness of Breath w/lying flat d enies. L ightheadedness/dizziness d enies. C hest tightness/ heavy pressure d enies. S welling of legs, ankles, or feet d enies. W aking up with shortness of breath d enies. C hest pain denies. P alpitations d enies. W eight gain d enies. R espiratory: Chronic or frequent cough d enies. C oughing up blood?denies. D ifficulty breathing d enies. P roductive cough d enies. S noring?denies. S hortness of breath that awakens from sleep (PND) d enies. C hest pain d enies. S putum production d enies. W heezing d enies. M usculoskeletal: Joint pain d enies. J oint Fluid d enies. B ack pain d enies. K nee pain d enies. N hugh pain d enies. J oint Stiffness d enies. M uscle cramps d enies. W eakness of muscles d enies. A rthritis d enies. M uscle aches d enies. P ain in shoulder(s) d enies. S wollen joints d enies. * Active Problem List J45.50 Severe persistent as thma, uncomplicated Modified On:10/02/2024 Status:confirmed I10 Hypertension Modified On:05/17/2024 Status:confirmed E66.9 Obesity Modified On:10/02/2024 Status:confirmed Z87.891 History of tobacco a buse Modified On:10/02/2024 Status:confirmed I25.10 Coronary heart disea se Modified On:05/17/2024 Status:confirmed E78.00 Hypercholesterolemia Modified On:05/17/2024 Status:confirmed C44.99 Skin carcinoma Modified On:05/17/2024 Status:confirmed D72.19 Peripheral eosinophi curtis Modified On:10/02/2024 Status:confirmed Z79.51 penitentiary (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 inhaled steroids Modified On:10/02/2024 Status:confirmed K43.9 Abdominal wall herni a Modified On:12/13/2024 Status:confirmed R07.89 Costochondral chest pain Modified On:01/02/2025 Status:confirmed * Medical History: * Surgical History: R otator Cuff repair- Right CHOLECYSTECTOMY 2022TONSILLECTOMY,UNDER 12YRS Skin Cancer- right side of face 2022Exploratory surgery- Gangrene polypectomy * Hospitalization/Major Diagno stic Procedure: D enies Past Hospitalization * Family History: F ather: alive, hyperlipidemia, Heart Disease, diagnosed with Unspecified essential hypertension. M other: . B rother(s): alive. S ister(s): Hyperlipidemia, diagnosed with Unspecified essential hypertension. P aternal Grandfather: heart disease. M aternal Grandfather: heart disease. M aternal Grandmother: Liver Cancer, diagnosed with Diabetes mellitus without mention of complication, type II or unspecified type, not stated as uncontrolled, Chronic kidney disease, unspecified. M aternal uncle: chronic obstructive pulmonary disease. 2 brother(s) , 2 sister(s) - healthy. . 1 sister . * Social History: T obacco Use: T obacco Control (Standard) T obacco use: F ormer smoker W hen did you start smoking? 0 05/02/1998 W hen did you stop smoking? 0 05/02/2007 H ow long has it been since you last smoked??Greater than 10 years A dditional Findings: Tobacco non-user E x-light cigarette smoker (1-9/day) Electronic Cigarette use C urrent user N o When did you stop smokin05/2007. D rug/Alcohol: A ORTIZ-C (Standard) D id you have a drink containing alcohol in the past year? N o P oints 0 I nterpretation N egative * Medications: T akingAlbuterol Sulfate (2.5 MG/3ML) 0.083% Nebulization Solution 3 mL as needed Inhalation every 6 hrs Albuterol Sulfate HFA 108 (90 Base) MCG/ACT Aerosol Solution 2 puff as needed Inhalation every 4 hrs Atorvastatin Calcium 80 MG Tablet 1 tablet Orally Once a day Azelastine HCl 0.05 % Solution 1 drop into affected eye Ophthalmic qd Benzonatate 200 MG Capsule 1 capsule Orally Three times a day busPIRone HCl 15 MG Tablet 1 tablet Orally three times daily Clopidogrel Bisulfate 75 MG Tablet 1 tablet Orally Once a day Fasenra(Benralizumab) 30 MG/ML Solution Prefilled Syringe 1 null Subcutaneous Losartan Potassium 100 MG Tablet 1 tablet Orally Once a day Metoprolol Succinate ER 50 MG Tablet Extended Release 24 Hour 1 tablet Orally Once a day Spiriva Respimat(Tiotropium [place] Monohydrate) 2.5 MCG/ACT Aerosol Solution 2 puffs Inhalation Once a day Vitamin D3 125 MCG (5000 UT) Capsule 1 capsule Orally Once a day Wixela Inhub(Fluticasone-Salmeterol) 500-50 MCG/ACT Aerosol Powder Breath Activated 1 puff Inhalation BID Medication List reviewed and reconciled with the patientTaking Albuterol Sulfate (2.5 MG/3ML) 0.083% Nebulization Solution 3 mL as needed Inhalation every 6 hrs Taking Albuterol Sulfate HFA 108 (90 Base) MCG/ACT Aerosol Solution 2 puff as needed Inhalation every 4 hrs Taking Atorvastatin Calcium 80 MG Tablet 1 tablet Orally Once a day Taking Azelastine HCl 0.05 % Solution 1 drop into affected eye Ophthalmic qd Taking Benzonatate 200 MG Capsule 1 capsule Orally Three times a day Taking busPIRone HCl 15 MG Tablet 1 tablet Orally three times daily Taking Clopidogrel Bisulfate 75 MG Tablet 1 tablet Orally Once a day Taking Fasenra(Benralizumab) 30 MG/ML Solution Prefilled Syringe 1 null Subcutaneous Taking Losartan Potassium 100 MG Tablet 1 tablet Orally Once a day Taking Metoprolol Succinate ER 50 MG Tablet Extended Release 24 Hour 1 tablet Orally Once a day Taking Spiriva Respimat(Tiotropium [place] Monohydrate) 2.5 MCG/ACT Aerosol Solution 2 puffs Inhalation Once a day Taking Vitamin D3 125 MCG (5000 UT) Capsule 1 capsule Orally Once a day Taking Wixela Inhub(Fluticasone-Salmeterol) 500-50 MCG/ACT Aerosol Powder Breath Activated 1 puff Inhalation BID Medication List reviewed and reconciled with the patient * Allergies: N .K.D.A.no[Allergies Verified] Objective: * Vitals: W t:263lbs, Ht: 71.5 in, BP:162/82mm Hg, BMI:36.17Index, Ht-cm: 181.61 cm, Wt-k.3 kg. * Examination: P hysical Exam: GENERAL: w ell developed, well nourished, in no acute distress. HEAD: n ormocephalic/atraumatic. EYES: p upils equal, round and reactive to light, conjunctivae and sclerae normal. EARS: n o deformity or lesion of external ear, canals and TM appear normal bilaterally, TM's intact, not inflamed with normal light reflex, hearing grossly normal to conversational speech. NOSE: n o deformity, discharge, inflammation, or lesions.? MOUTH: m ucous membranes moist, normal oropharynx and posterior pharynx without lesions or exudates, tongue normal, dentition normal. NECK: n hugh supple, no masses or palpable cervical nodes, trachea midline, thyroid without nodules, masses, tenderness, or enlargement. CHEST: n o chest wall deformity, no chest wall tenderness.? LUNGS: n ormal respiratory effort and clear to auscultation, no wheezes, rales, or rhonchi, good air exchange. CARDIO: r egular rate and rhythm, normal S1 and S2, nor murmur, rub, or gallop. PULSES: n ormal capillary refill. ABDOMEN: s oft, non-distended, non-tender, no masses. MUSCULOSKELETAL: n o deformity or scoliosis noted, normal range of motion, joints normal, no erythema, edema, effusion, or ecchymosis. EXTREMITY: n o clubbing, cyanosis, edema, or deformity with normal ROM in both upper and lower bilateral extremities. NEUROLOGIC: g rossly normal. SKIN: n o rashes, ulcerations, or suspicious lesions. LYMPH NODES: n o cervical adenopathy, nodes normal. MENTAL STATUS: a lert and oriented x3, normal mood and affect. Assessment: * Assessment: 1. C ostochondral chest pain - R07.89 (Primary) 2 . H ypertension - I10? Plan: * Treatment: * Therapeutic Injections: Dexamethasone, 4mg/mL : 8 mg (Route: Intramuscular) given by MONSE Piedra on left deltoid (Costochondral chest pain) Ketorolac Tromethamine : 60 mg (Route: Intramuscular) given by MONSE Piedra on right deltoid (Costochondral chest pain) * Procedure Codes: 9 6372 THERAP.INJ. OF MED. INTRAMUSCULAR OR [id number] TORADOL, PER 15 MG, Units: 4.00 , Modifiers: JZ J1100 Dexamethasone, 4mg/mL, Units: 2.00 * Preventive Medicine: Screenings/Counseling: B HI ACTION PLAN Above Normal BMI Follow-up D ietary management education, guidance, and counseling * * Sign off status: Completed Visit Status: C HK (Check Out) true * Provider: Samir Munoz ([facility])MD Date: 01/02/2025 Generated for Printi ng/Faxing/eTransmitting on: 01/15/2025 07:05 AM EDT History and Physical Notes * HPI (History of Present Illness) Category Sub-Category Detail Notes Category Not es General ended up in ER- twice - CAD testing all good HTN - low [facility] high at times Having repair Examination Category Sub-Category Detail Notes Category Not es Physical Exam GENERAL: well developed, well nourished, in no acute distress HEAD: normocephalic/atraum atic EYES: pupils equal, round and reactive to light, conjunctivae and sclerae normal EARS: no deformity or lesi on of external ear, canals and TM appear normal bilaterally, TM's intact, not inflamed with normal light reflex, hearing grossly normal to conversational speech NOSE: no deformity, discha rge, inflammation, or lesions MOUTH: mucous membranes sofia st, normal oropharynx and posterior pharynx without lesions or exudates, tongue normal, dentition normal NECK: neck supple, no mass es or palpable cervical nodes, trachea midline, thyroid without nodules, masses, tenderness, or enlargement CHEST: no chest wall deform ity, no chest wall tenderness LUNGS: normal respiratory e ffort and clear to auscultation, no wheezes, rales, or rhonchi, good air exchange CARDIO: regular rate and rhy thm, normal S1 and S2, nor murmur, rub, or gallop PULSES: normal capillary ref ill ABDOMEN: soft, non-distended, non-tender, no masses RECTAL: MUSCULOSKELETAL: no deformity or scol iosis noted, normal range of motion, joints normal, no erythema, edema, effusion, or ecchymosis EXTREMITY: no clubbing, cyanosi s, edema, or deformity with normal ROM in both upper and lower bilateral extremities NEUROLOGIC: grossly normal SKIN: no rashes, ulceratio ns, or suspicious lesions LYMPH NODES: no cervical adenopat hy, nodes normal MENTAL STATUS: alert and oriented x 3, normal mood and affect
--- OUTSIDE RECORDS SUMMARY | 2025-01-15 07:05 | XMS_ITS | Encounter Summary ---
Author Organization [facility] Address [address] [place] [address] Care Team Providers Care Applications Developer Name Role Phone House Sr., Nirav LADD Talib Primary Care Provider + Sukhwinder Soto Unavailable [phone] Sukhwinder Soto Unavailable [phone] Source Comments In the event this information is protected by the Federal Confidentiality of Alcohol and Drug AbusePatient Records regulations: The Federal rules restrict any use of the information to criminally investigate or prosecute any alcohol or drug abuse patient.[facility] Reason for Visit * Reason Comments PSG Check-In (Adult) Encounter Details Date Type Department Care Team (Late st Contact Info) Description 07/25/2015 Abstract Neurology [address] [id number] [facility] [address] [id number] PSG Check-In (Adult) Social History Tobacco Use Types Packs/Day Years Used Date Smoking Tobacco: Former Cigarettes 0.5 20 0 01/29/1988 - 01/29/2008 Smokeless Tobacco: Never Alcohol Use Standard Drinks/Week Comments No 0 (1 standard drink = 0.6 oz pur e alcohol) Sex and Gender Information Value Date Recorded Sex Assigned at Not on file Legal Sex Male 4:01 PM EDT Gender Identity Not on file Sexual Orientation Not on file 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
--- OUTSIDE RECORDS SUMMARY | 2025-01-15 07:05 | XMS_ITS | Clinical Summary ---
Author Organization [facility] Address [id number] [address] [place] [address] Care Team Providers Care Extractor Tender Raw Stock Name Role Phone Nirav Valdez DO Primary Care Provider [phone] Allergies No known active allergies Social History Tobacco Use Types Packs/Day Years Used Date Smoking Tobacco: Never Assessed Childcare Answer Date Recorded Childcare Unknown 10/11/2018 Employment Answer Date Recorded Employment Unknown 10/11/2018 Purpose - Life Answer Date Recorded Purpose and direction in life Unknown Sex and Gender Information Value Date Recorded Sex Assigned at Not on file Legal Sex Male 11:41 AM EDT Gender Identity Not on file Sexual Orientation Not on file Last Filed Vital Signs Vital Sign Reading Time Taken Comments Blood Pressure - - Pulse - - Temperature - - Respiratory Rate - - Oxygen Saturation - - Inhaled Oxygen Concentration - - Weight 115.7 kg (255 lb) 10/19/2016 3:44 PM EDT Height - - Body Mass Index - - Plan of Treatment Health Maintenance Due Date Last Done Comments Depression Screening 1974 Tobacco Screening 1974 Adult BMI Screening 1980 DTaP,Tdap and Td Vaccines (1 - Tdap) 1981 Zoster (Shingles) Vaccine (1 of 2) 2012 Influenza Vaccine 12/31/2024 Medical Devices Not on file Insurance [employer] [id number] [employer] Care Teams Extractor Tender Raw Stock Relationship Specialty Start Date End Date Nirav Valdez DO PCP - General 10/11/16
--- OUTSIDE RECORDS SUMMARY | 2025-01-15 07:05 | XMS_ITS | Encounter Summary ---
Author Organization [facility] Address [address] [place] [address] Phone Care Team Providers Care Bilingual Administrative Assistant Name Role Phone Gabriel Munoz MD Primary Care Provider [phone] Nirav Valdez DO Primary Care Provider [phone] Gabriel Munoz MD Primary Care Provider [phone] Encounter Details Date Type Department Care Team (Late st Contact Info) Description 02/18/2022 Orders Only [facility] [address] [place] [address] Conversion, Onbase Social History Tobacco Use Types Packs/Day Years Used Date Smoking Tobacco: Never Assessed Sex and Gender Information Value Date Recorded Sex Assigned at Not on file Legal Sex Male 8:53 AM EST Gender Identity Not on file Sexual Orientation Not on file documented as of this encounter Plan of Treatment Upcoming Encounters Date Type Department Care Team (Late st Contact Info) Description 01/17/2025 1:30 PM EDT Office Visit [facility] [address] [facility] [address] [place] [address] Rey Leiva DO [address] [facility] [address] [place], [place] [id number] Scheduled Orders Name Type Priority Associated Diagnoses Orde r Schedule OUTSIDE LAB SCAN Lab Ordered: 02/18/2022 documented as of this encounter Visit Diagnoses Not on filedocumented in this encounter Care Teams Bilingual Administrative Assistant Relationship Specialty Start Date End Date Gabriel Munoz MD [address] [place] [address] PCP - General 05/02/99 04/14/22 Nirav Valdez DO [address] [place] [address] PCP - General 04/15/22 12/23/24 Gabriel Munoz MD [address] [place] [address] PCP - General Family Medicine 12/24/24 documented as of this encounter
--- OUTSIDE RECORDS SUMMARY | 2025-01-15 07:05 | XMS_ITS | Clinical Summary ---
Author Organization [facility] Address [facility] [place] [address] Care Team Providers Care Sausage Smoker Name Role Phone House Sr., Nirav LADD Primary Care Provider + Sukhwinder Soto Unavailable [phone] Allergies No known active allergies Medications ALBUTEROL SULFATE (PROAIR HFA INHALATION) Inhale as instructed. Active aspirin, enteric coated (ASPIR-LOW) 81 mg EC tablet Take 1 tablet by mouth once daily. 0 6 Active atorvastatin (LIPITOR) 40 mg tablet Take 1 tablet by mouth once daily. 90 tablet 3 6 Active metoprolol succinate ER (TOPROL XL) 100 mg Tb24 Take 1 tablet by mouth once daily. 90 tablet 3 6 Active budesonide-formo terol (SYMBICORT) 160-4.5 mcg/actuation inhaler Inhale 2 Puffs as instructed twice daily. Active irbesartan (AVAPRO) 300 mg tablet Take 0.5 tablets by mouth daily at bedtime. 0 6 Active isosorbide mononitrate ER (IMDUR) 30 mg 24 hr tablet Take 1 tablet by mouth once daily. 90 tablet 3 6 Active spironolactone (ALDACTONE) 50 mg tablet Take 1 tablet by mouth once daily. 90 tablet 3 7 Active SPIRIVA WITH HANDIHALER 18 mcg inhalation capsule INL CONTENTS OF 1 C ONCE DAILY USING HANDIHALER 5 7 Active Active Problems Problem Noted Date Diagnosed Date Chronic systolic congestive heart failure 2015 Dyspnea, unspecified 07/24/2015 Bilateral low back pain with sciatica 07/24/2015 Tachycardia 07/24/2015 Atherosclerosis of [place] co ronary artery of [place] heart without angina pectoris 07/08/2015 Acute on chronic systolic congestive heart failu re 07/08/2015 Abnormal stress test 07/08/2015 Preoperative cardiovascular examination 01/29/20 15 HTN (hypertension) 01/28/2015 Family History Medical History Relation Comments Heart Father [place] x 4 Relation Status Comments Father Social History Tobacco Use Types Packs/Day Years Used Date Smoking Tobacco: Former Cigarettes 0.5 20 0 01/29/1988 - 01/29/2008 Smokeless Tobacco: Never Alcohol Use Standard Drinks/Week Comments No 0 (1 standard drink = 0.6 oz pur e alcohol) Area Deprivation Index Answer Date Sage rded National Score (1-100), lower number is lower ri sk Not on file 04/09/2020 State Score (1-10), lower number is lower risk N ot on file 04/09/2020 Data from: https://www.neighborhoodatlas.medicine.[facility]/. 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 Not on file Last Filed Vital Signs Vital Sign Reading Time Taken Comments Blood Pressure 140/90 06/17/2017 2:49 PM EST Pulse 93 06/17/2017 2:49 PM EST Temperature 36.7 C (98.1 F) 07/24/2015 9:13 AM EDT Respiratory Rate 18 06/17/2017 2:49 PM EST Oxygen Saturation 98% 06/17/2017 2:49 PM EST Inhaled Oxygen Concentration - - Weight 121.6 kg (268 lb) 06/17/2017 2:49 PM EST Height 180.3 cm (5' 11 ) 06/17/2017 2:49 PM EST Body Mass Index 37.38 06/17/2017 2:49 PM EST Plan of Treatment Health Maintenance Due Date Last Done Comments Anxiety Screening 1980 Depression Screening 1980 HIV Screening 1980 Hepatitis C Screening 1980 DTaP,Tdap,Td Vaccine (1 - Tdap) [address] Colonography 10/15/2007 Cologuard (FIT-DNA) 10/15/2007 Colonoscopy 10/15/2007 Colorectal Cancer Screening 10/15/2007 Diabetes Screening 10/15/2007 Fecal Occult Blood 10/15/2007 Prostate Cancer Screening Discussion 10/15/2007 Sigmoidoscopy 10/15/2007 Pneumococcal Vaccine: 50+ (1 of 1 - PCV) 2012 Shingrix Vaccine (1 of 2) 2012 Influenza Vaccine (#1) 2024 RSV Vaccine (1 - 1-dose 75+ series) 2037 Care Teams Sausage Smoker Relationship Specialty Start Date End Date Nirav Valdez Sr., PCP - General Family Medicine 01/28/15 Sukhwinder Soto [address] [facility] [address] Primary Staff Physician Cardiology 07/18/18
--- OUTSIDE RECORDS SUMMARY | 2025-01-15 07:05 | XMS_ITS | Encounter Summary ---
Author Organization [facility] Address [address] [place] [address] Phone Care Team Providers Care Latcher Name Role Phone Gabriel Munoz MD Primary Care Provider [phone] Nirav Valdez DO Primary Care Provider [phone] Gabriel Munoz MD Primary Care Provider [phone] Encounter Details Date Type Department Care Team (Late st Contact Info) Description 04/23/2021 Orders Only [facility] [address] [place] [address] Conversion, Onbase Social History Tobacco Use Types [...] Description 01/17/2025 1:30 PM EDT Office Visit [facility] [address] [facility] [address] [place] [address] Rey Leiva DO [address] [facility] [address], [address] [place], [place] [id number] Scheduled Orders Name Type Priority Associated Diagnoses Orde r Schedule OUTSIDE LAB SCAN Lab Ordered: 04/23/2021 documented as of this encounter Visit Diagnoses Not on filedocumented in this encounter Care Teams Latcher Relationship Specialty Start Date End Date Gabriel Munoz MD [address] [place] [address] PCP - General 05/02/99 04/14/22 Nirav Valdez DO [address] [place] [address] PCP - General 04/15/22 12/23/24 Gabriel Munoz MD [address] [place] [address] PCP - General Family Medicine 12/24/24 documented as of this encounter
--- OUTSIDE RECORDS SUMMARY | 2025-01-15 07:05 | XMS_ITS | Clinical Summary ---
Author Organization [facility] Address [address] [place] [address] Phone Care Team Providers Care Pump Technician Name Role Phone Gabriel Munoz MD Primary Care Provider [phone] Allergies No known active allergies Medications albuterol 2.5 mg /3 mL (0.083 %) nebulizer solution Inhale every 6 hours if needed. 09/17/19 21 Active albuterol (ProAir HFA) 90 mcg/actuation inhaler Inhale. As needed 11/26/19 21 Active cholecalciferol (Vitamin D-3) 125 MCG (5000 UT) capsule Take 1 capsule (125 mcg) by mouth once daily. Active nitroglycerin (Nitrostat) 0.[address] 1 tablet (0.4 mg) under the tongue every 5 minutes if needed for chest pain. 04/16/20 21 Active revefenacin (Yupelri) 175 mcg/3 mL nebulizer solution Take 3 mL (175 mcg) by nebulization once daily. Active busPIRone (Buspar) 15 mg tablet Take 1 tablet (15 mg) by mouth 3 times a day. 01/09/20 24 Active fluticasone propion-salmeteroL (Advair Diskus) 500-50 mcg/dose diskus inhaler Inhale 1 puff 2 times a day. Rinse mouth with water after use to reduce aftertaste and incidence of candidiasis. Do not swallow. Active atorvastatin (Lipitor) 80 mg tabletIndications: Hyperlipidemia, unspecified hyperlipidemia type Take 1 tablet (80 mg) by mouth once daily. 90 tablet 3 01/17/20 24 025 Active clopidogrel (Plavix) 75 mg tabletIndications: Cerebrovascular accident (CVA), unspecified mechanism (Multi) Take 1 tablet (75 mg) by mouth once daily. 90 tablet 3 01/17/20 24 025 Active metoprolol succinate XL (Toprol-XL) 50 mg 24 hr tabletIndications: Essential hypertension Take 1 tablet (50 mg) by mouth once daily. 90 tablet 3 01/17/20 24 025 Active losartan (Cozaar) 50 mg tabletIndications: Essential hypertension TAKE 1 TABLET BY MOUTH DAILY 90 tablet 3 01/20/20 24 Active benralizumab (FASENRA SUBQ) Inject 1 Dose under the skin every 30 (thirty) days. Active Active Problems Problem Noted Date Diagnosed Date BMI 37.0-37.9, adult 01/17/2024 Dizziness 01/17/2024 Lightheadedness 01/17/2024 Former smoker 01/17/2024 ASHD (arteriosclerotic heart disease) 07/25/2023 Asthma 07/25/2023 Chronic obstructive pulmonary disease (Multi) Essential hypertension 07/25/2023 Hyperlipidemia 07/25/2023 Stroke (Multi) 07/25/2023 Encounters Date Type Department Care Team Description 12/24/[address] [address] Jennifer Cueva LPN Chest Pain from Last 3 Months Family History Medical History Relation Name Comments Diabetes Brother Aortic aneurysm Father Coronary artery disease Father Heart attack Father Relation Name Status Comments Brother Father Social History Tobacco Use Types Packs/Day Years Used Date Smoking Tobacco: Former Cigarettes Q uit: 2007 Smokeless Tobacco: Never Tobacco Cessation:Counseling Given: Not Answered Alcohol Use Standard Drinks/Week Comments Yes 0 (1 standard drink = 0.6 oz pur e alcohol) occasional cocktail Sex and Gender Information Value Date Recorded Sex Assigned at Not on file Legal Sex Male 8:53 AM EST Gender Identity Not on file Sexual Orientation Not on file Last Filed Vital Signs Vital Sign Reading Time Taken Comments Blood Pressure 138/80 04/13/2024 10:20 AM EST Pulse 82 04/13/2024 9:59 AM EST Temperature - - Respiratory Rate - - Oxygen Saturation - - Inhaled Oxygen Concentration - - Weight 122 kg (268 lb) 04/13/2024 9:53 AM EST Height 180.3 cm (5' 11 ) 04/13/2024 9:53 AM EST Body Mass Index 37.38 04/13/2024 9:53 AM EST Plan of Treatment Upcoming Encounters Date Type Department Care Team (Late st Contact Info) Description 01/17/2025 1:30 PM EDT Office Visit [facility] [address] [facility] [address] [place] [address] Rey Leiva DO [address] [facility] [address] [place] [address] Health Maintenance Due Date Last Done Comments CT Colonography 1962 Creatinine Level 1962 FIT-DNA (Cologuard) 1962 FIT 1962 HIV Screening 1962 Lipid Panel 1962 Medicare Annual Wellness Vis it (AWV) 1962 Potassium Level 1962 Sigmoidoscopy 1962 MMR Vaccines (1 of 1 - Standard series) 10/15/1963 Diabetes Screening 1980 Hepatitis C Screening 1980 PSA Prostate Cancer Screening 2012 Echocardiogram 08/30/2020 08/31/2019, 06/10/2017 COVID-19 Vaccine (3 - 2024-2 6 season) 2024 09/19/2020, 08/22/2020 Influenza Vaccine (#1) 2024 DTaP/Tdap/Td Vaccines (2 - T d or Tdap) 08/09/2026 08/09/2016 Colonoscopy 12/07/2033 12/08/2023, 09/17/2020 Colorectal Cancer Screening 12/07/2033 Zoster Vaccines Completed 01/23/2019, 10/23/2018 Pneumococcal Vaccine Completed 12/11/2021, 01/30/2019, 10/27/2017 RSV High Risk: (Elderly (60+ ) or Population) Completed 02/14/2024 HIB Vaccines Aged Out No longer eligi ble based on patient's age to complete this topic HPV Vaccines Aged Out No longer eligi ble based on patient's age to complete this topic Hepatitis A Vaccines Aged Out No long er eligible based on patient's age to complete this topic Hepatitis B Vaccines Aged Out No long er eligible based on patient's age to complete this topic IPV Vaccines Aged Out No longer eligi ble based on patient's age to complete this topic Meningococcal Vaccine Aged Out No janna cynthia eligible based on patient's age to complete this topic Rotavirus Vaccines Aged Out No longer eligible based on patient's age to complete this topic Procedures Procedure Name Priority Date/Time Associated Diagnosis Comments ECHOCARDIOGRAM 08/31/2019 from Last 3 Months or Most Recently Relevant to Health Maintenance Results * ECHOCARDIOGRAM (08/31/2019) Narrative 08/31/2019 Ordered by an unspecified provider. us Onbase Conversion CV ECHO PROCEDURES Final Resul t from Last 3 Months or Most Recently Relevant to Health Maintenance Insurance MEDICARE PART A AND B [facility] MEDICARE PART A AND B [facility] Care Teams Pump Technician Relationship Specialty Start Date End Date Gabriel Munoz MD [address] [place] [address] PCP - General Family Medicine 12/24/24
--- OUTSIDE RECORDS SUMMARY | 2025-01-15 07:05 | XMS_ITS | Clinical Summary ---
Author Organization [facility] Address [address] [facility], [address] [place] [address] Care Team Providers Care Manager Line Name Role Phone Unavailable Primary Care Provider Unavailabl e Allergies No known active allergies Medications spironolactone (ALDACTONE) 50 MG tablet Take 1 tablet by mouth daily Active metoprolol succinate (TOPROL XL) 50 MG extended release tablet Take 1 tablet by mouth daily Active clopidogrel (PLAVIX) 75 MG tablet Take 1 tablet by mouth daily Active Cholecalciferol (VITAMIN D3) 125 MCG (5000 UT) TABS Take 1 tablet by mouth daily Active losartan (COZAAR) 50 MG tablet Take 1 tablet by mouth daily Active atorvastatin (LIPITOR) 80 MG tablet Take 1 tablet by mouth daily Active albuterol (PROVENTIL) (2.5 MG/3ML) 0.083% nebulizer solution Take 3 mLs by nebulization daily Active albuterol (PROVENTIL) (2.5 MG/3ML) 0.083% nebulizer solution Take 3 mLs by nebulization every 6 hours as needed for Wheezing Active revefenacin (YUPELRI) 175 MCG/3ML SOLN Inhale 3 mLs into the lungs daily Active Active Problems Problem Noted Date Diagnosed Date Transaminitis 01/25/2023 Elevated bilirubin 01/25/2023 Alkaline phosphatase elevation 01/25/2023 History of cholecystectomy 01/25/2023 History of bowel resection 01/25/2023 Resolved Problems Problem Noted Date Diagnosed Date Resolved Date Abdominal pain 01/25/2023 01/26/2023 Elevated lactic acid level 01/25/2023 0 01/26/2023 Family History Medical History Relation Name Comments Diabetes Brother Heart Disease Father Diabetes Paternal Grandmother Relation Name Status Comments Brother Father Paternal Grandmother Social History Tobacco Use Types Packs/Day Years Used Date Smoking Tobacco: Never Smokeless Tobacco: Never Tobacco Cessation:Counseling Given: Not Answered Interpersonal Safety Domain Source: IP Abuse Scr eening Answer Date Recorded Read-Only, Retired: Physical Abuse Denies 01/26/2023 Read-Only, Retired: Verbal Abuse Denies 01/26/2023 Read-Only, Retired: Emotional abuse Denies 01/26/2023 Read-Only, Retired: Financial Abuse Denies 01/26/2023 Read-Only, Retired: Sexual abuse Denies 01/26/2023 Sex and Gender Information Value Date Recorded Sex Assigned at Not on file Legal Sex Male 2:32 PM EDT Gender Identity Not on file Sexual Orientation Not on file Last Filed Vital Signs Vital Sign Reading Time Taken Comments Blood Pressure 127/82 01/26/2023 7:31 AM EDT Pulse 74 01/26/2023 7:31 AM EDT Temperature 36.8 C (98.2 F) 01/26/2023 7:31 AM EDT Respiratory Rate 20 01/26/2023 7:31 AM EDT Oxygen Saturation 97% 01/26/2023 7:31 AM EDT Inhaled Oxygen Concentration - - Weight - - Height - - Body Mass Index - - Plan of Treatment Health Maintenance Due Date Last Done Comments Lipids 1972 Depression Screen 1974 HIV screen 1977 Hepatitis C screen 1980 DTaP/Tdap/Td vaccine (1 - Tdap) 1981 Colonoscopy 10/15/2007 Colorectal Cancer Screen 10/15/2007 FIT/FOBT: Average risk 10/15/2007 Fecal-DNA (Cologuard): Chloe ge risk 10/15/2007 Sigmoidoscopy/CT colonography 10/15/2007 Pneumococcal 50+ years Vacci ne (1 of 1 - PCV) 2012 Shingles vaccine (1 of 2) 2012 Respiratory Syncytial Virus (RSV) or age 60 yrs+ (1 - Risk 60-74 years 1-dose series) 2022 Annual Wellness Visit (Medicare) 03/28/2023 Flu vaccine (#1) 11/30/2024 COVID-19 Vaccine (3 - 2024-2 6 season) 2024 09/19/2020, 08/22/2020 Hepatitis A vaccine Aged Out No longe r eligible based on patient's age to complete this topic Hepatitis B vaccine Aged Out No longe r eligible based on patient's age to complete this topic Hib vaccine Aged Out No longer eligi ble based on patient's age to complete this topic Meningococcal (ACWY) vaccine Aged Out No longer eligible based on patient's age to complete this topic Meningococcal B vaccine Aged Out No l onger eligible based on patient's age to complete this topic Polio vaccine Aged Out No longer elig ible based on patient's age to complete this topic Insurance [employer] MEDICARE Advance Directives * Full Code (Latest Code Status on File) Date Activated Date Inactivated Comments 01/25/2023 6:37 PM 01/26/2023 7:48 PM * Full Code Date Activated Date Inactivated Comments 01/25/2023 6:37 PM 01/25/2023 6:37 PM
--- OUTSIDE RECORDS SUMMARY | 2025-01-15 07:05 | XMS_ITS | Encounter Summary ---
Author Organization [facility] Address [address] [place] [address] Phone Care Team Providers Care Commissary Worker Name Role Phone Nirav Valdez DO Primary Care Provider [phone] Gabriel Munoz MD Primary Care Provider [phone] Encounter Details Date Type Department Care Team (Late st Contact Info) Description 12/21/2022 Scanned Document [facility]Y [address] [place] [address] Conversion, Onbase Social History Tobacco Use Types [...] Description 01/17/2025 1:30 PM EDT Office Visit [facility] [address] [facility] [address] [place] [address] Rey Leiva DO [address] [facility] [address], [address] [place] [address] documented as of this encounter Procedures Procedure Name Priority Date/Time Associated Diagnosis Comments CARDIAC STRESS TEST 12/21/2022 documented in this encounter Results * CARDIAC STRESS TEST (12/21/2022) Narrative 12/21/2022 Ordered by an unspecified provider. us Onbase Conversion CV STRESS PROCEDURES Final Res ult documented in this encounter Visit Diagnoses Not on filedocumented in this encounter Care Teams Commissary Worker Relationship Specialty Start Date End Date Nirav Valdez DO PCP - General 04/15/22 12/23/24 Gabriel Munoz MD [address] [place] [address] PCP - General Family Medicine 12/24/24 documented as of this encounter
--- OUTSIDE RECORDS SUMMARY | 2025-01-15 07:05 | XMS_ITS | Encounter Summary ---
Author Organization [facility] Address [address] [place] [address] Phone Care Team Providers Care Remote Encoding Center Manager Name Role Phone Nirav Valdez DO Primary Care Provider Gabriel Munoz MD Primary Care Provider [phone] Encounter Details Date Type Department Care Team (Late st Contact Info) Description 01/17/2024 Scanned Document [facility] [address] [place] [place] [address] Scanning, Generic Provider Social History Tobacco Use Types Packs/Day Years Used Date Smoking Tobacco: Former Cigarettes Q uit: 2007 Smokeless Tobacco: Never Alcohol Use Standard Drinks/Week Comments Never 0 (1 standard drink = 0.6 oz pur e alcohol) Sex and Gender Information Value Date Recorded Sex Assigned at Not on file Legal Sex Male 8:53 AM EST Gender Identity Not on file Sexual Orientation Not on file COVID-19 Exposure Response Date Recorded In the last 10 days, have yo u been in contact with someone who was confirmed or suspected to have Coronavirus/COVID-19? No / Unsure 01/17/2024 1:57 PM EDT documented as of this encounter Plan of Treatment Upcoming Encounters Date Type Department Care Team (Late st Contact Info) Description 01/17/2025 1:30 PM EDT Office Visit [facility] [address] [facility] [address] [place] [address] Rey Leiva DO [address] [place] [address] documented as of this encounter Visit Diagnoses Not on filedocumented in this encounter Care Teams Remote Encoding Center Manager Relationship Specialty Start Date End Date Nirav Valdez DO PCP - General 04/15/22 12/23/24 Gabriel Munoz MD [address] [place] [address] PCP - General Family Medicine 12/24/24 documented as of this encounter
--- OUTSIDE RECORDS SUMMARY | 2025-01-15 07:05 | XMS_ITS | Encounter Summary ---
Author Organization [facility] Address [address] [place] [address] Phone Care Team Providers Care Housing Relocation Name Role Phone Gabriel Munoz MD Primary Care Provider [phone] Nirav Valdez DO Primary Care Provider [phone] Gabriel Munoz MD Primary Care Provider [phone] Encounter Details Date Type Department Care Team (Late st Contact Info) Description 03/22/2019 Orders Only [facility] [address] [place] [address] Conversion, Onbase Social History Tobacco Use Types [...] Description 01/17/2025 1:30 PM EDT Office Visit [facility] [address] [facility] [address] [place] [address] Rey Leiva DO [address] [facility] [address], [address] [place], [place] [address] Scheduled Orders Name Type Priority Associated Diagnoses Orde r Schedule OUTSIDE LAB SCAN Lab Ordered: 03/22/2019 documented as of this encounter Visit Diagnoses Not on filedocumented in this encounter Care Teams Housing Relocation Relationship Specialty Start Date End Date Gabriel Munoz MD [address] [facility] [place] [address] PCP - General 05/02/99 04/14/22 Nirav Valdez DO [address] [place] [address] PCP - General 04/15/22 12/23/24 Gabriel Munoz MD [address] [place] [address] PCP - General Family Medicine 12/24/24 documented as of this encounter
--- OUTSIDE RECORDS SUMMARY | 2025-01-15 07:05 | XMS_ITS | Patient Health Record ---
Author Organization [facility] in [place] Address [address] [place] [address] Care Team Providers Care Alarm Technician Name Role Phone Gene Munoz Primary Care Provider Saleem Garcia Unavailable [phone] Allergies No Known Allergies Results Component Value Reference Range Notes CBC AUTO DIFF Reviewed date:12/24/2024 09:38:43 AM Interpretation: Performing Lab: Notes/Report: [facility] , White Blood Count 8.5 4.0-11.0 10 3/uL Red Blood Count 4.13 4.70-6.10 10 6/uL Hemoglobin 12.9 14.0-18.0 g/dL Hematocrit 37.4 42.0-54.0 % Mean Corpuscular Volume 90.6 80.0-94.0 fL Mean Corpuscular Hemoglobin 31.2 25.9-34.0 pg Mean Corpuscular HGB Conc 34.5 29.9-35.2 g/dL Red Cell Distribution Width 13.2 11.0-15.0 % Platelet Count 202 150-450 10 3/uL Mean Platelet Volume 10.8 9.5-13.5 fL Neutrophils Percent Auto 78.9 43.0-75.0 % Lymphocytes Percent Auto 14.2 20.5-60.0 % Monocytes Percent Auto 6.4 1.7-12.0 % Eosinophils Percent Auto 0.0 0.9-7.0 % Basophils Percent Auto 0.1 0.2-2.0 % Immature Granulocytes Pct Auto 0.4 0.0-0.5 % Neutrophils Absolute Auto 6.7 1.4-6.5 10 3/uL Lymphocytes Absolute Auto 1.2 1.2-3.8 10 3/uL Monocytes Absolute Auto 0.5 0.3-0.8 10 3/uL Eosinophils Absolute Auto 0.0 0.0-0.7 10 3/uL Basophils Absolute Auto 0.0 0.0-0.1 10 3/uL Immature Granulocytes Abs Auto 0.03 0.00-0.03 10 3/uL Performing Lab: see note - [facility] LB Troponin I High Sensitivity Reviewed date:12/24/2024 06:18:52 PM Interpretation: Performing Lab: Notes/Report: [facility] , Troponin I High Sensitivity 9.4 4.0-76.1 pg/m L CUT-OFF POINTS HAVE BEEN ESTABLISHED BASED ON THE FOURTH UNIVERSAL DEFINITION OF MYOCARDIAL INFARCTION. THE UPPER REFERENCE LIMIT (URL) OF TROPONIN, DEFINED THE 99TH PERCENTILE OF cTnI DISTRIBUTION IN A REFERENCE POPULATION, HAS BEEN CONFIRMED THE DECISION THRESHOLD FOR MA DIAGNOSIS. 99TH PERCENTILE = 76.2 PG/ML NOTE: HIGH-SENSITIVITY TROPONIN ASSAY IS NOT INTENDED TO BE USED IN ISOLATION BUT SHOULD BE INTERPRETED IN CONJUNCTION WITH OTHER DIAGNOSTIC AND CLINICAL INFORMATION. 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 Signed By: 12/26/24 1553 12/26/24 1553 DD/ 1448 TD/TT: Human Services Case Manager: XR chest 2V Reviewed date:12/24/2024 09:38:43 AM Interpretation: Performing Lab: Notes/Report: Source Facility: [place] [address] XRay Report Signed Patient: ABRAHAM HARRY MR#: [id number] : 1960 Acct:[id number] Age/Sex: 64 / M ADM Date: 12/23/24 Loc: ER Attending Dr: Ordering Physician: Brent Ball Date of Service: 12/23/24 Procedure(s): XR chest 2V Accession Number(s): [id number] cc: Beth Munoz M.D.; Brent Ball [place] [address] Patient Name: ABRAHAM HARRY MRN: [id number] date: 1960 Sex: M Assigned Patient Location: ED.MAIN Current Patient Location: ED.MAIN Accession/Order Number: [id number] Exam Date: 12/23/2024 16:54 Report Date: 12/23/2024 17:24 At the request of: BRENT DOZIER Procedure: XR chest 2V XR chest 2V 12/23/2024 4:58 PM SIGNS AND SYMPTOMS: chest pain PROTOCOL: Frontal and lateral radiographs of the chest COMPARISON: 07/03/2024 FINDINGS: The trachea is midline. The heart and mediastinal structures are within normal limits. The lung parenchyma is clear. The bony thorax is intact. XR/XR chest 2V IMPRESSION: No acute cardiopulmonary pathology. Impression dictated by: Denton Mohan M.D. 12/23/2024 5:24 PM Dictation Location: [place] [address] Electronically authenticated by: [id number] Y Date: 12/23/2024 17:24 Dictated By: Denton Mohan M.D. 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 Signed By: 12/24/24 1224 DD/ 1606 TD/TT: Human Services Case Manager: Troponin I High Sensitivity Reviewed date:12/24/2024 09:38:43 AM Interpretation: Performing Lab: Notes/Report: [facility] , Troponin I High Sensitivity 10.4 4.0-76.1 pg/m L CUT-OFF POINTS HAVE BEEN ESTABLISHED BASED ON THE FOURTH UNIVERSAL DEFINITION OF MYOCARDIAL INFARCTION. THE UPPER REFERENCE LIMIT (URL) OF TROPONIN, DEFINED THE 99TH PERCENTILE OF cTnI DISTRIBUTION IN A REFERENCE POPULATION, HAS BEEN CONFIRMED THE DECISION THRESHOLD FOR MA DIAGNOSIS. 99TH PERCENTILE = 76.2 PG/ML NOTE: HIGH-SENSITIVITY TROPONIN ASSAY IS NOT INTENDED TO BE USED IN ISOLATION BUT SHOULD BE INTERPRETED IN CONJUNCTION WITH OTHER DIAGNOSTIC AND CLINICAL INFORMATION. Performing Lab: see note ML - [facility] LB Prothrombin Time INR Reviewed date:12/24/2024 09:38:43 AM Interpretation: Performing Lab: Notes/Report: [facility] , Prothrombin Time 9.9 9.0-11.6 sec INR 0.93 DESIRED INR: 2.0-3.0 CONDITIONS NOT LISTED BELOW 2.5-3.5 FOR PROSTHETIC HEART VALVE REPLACEMENT 2.5-3.5 RECURRENT THROMBOSIS Performing Lab: see note - [facility] LB PROF 14(COMP METB) Reviewed date:12/24/2024 09:38:43 AM Interpretation: Performing Lab: Notes/Report: [facility] , Sodium 141 136-145 mmol/L Potassium 3.4 3.5-5.1 mmol/L Chloride 106 98-107 mmol/L Carbon Dioxide 24.1 21.0-32.0 mmol/L Anion Gap 14.3 Glucose 100 74-106 mg/dL Blood Urea Nitrogen 18.0 7.0-18.0 mg/dL Creatinine 0.75 0.70-1.30 mg/dL Estimated GFR ( Tayla >60 >=60 mL/mi n/1.73m 2 Estimated GFR (Non- Katja >60 >=60 mL/mi n/1.73m 2 BUN Creatinine Ratio 24.0 Calcium 9.2 8.5-10.1 mg/dL Bilirubin Total 0.9 0.2-1.0 mg/dL Aspartate Amino Transferase 28 15-37 U/L Alanine Aminotransferase 40 16-63 U/L Alkaline Phosphatase 93 46-116 U/L Total Protein 7.3 6.4-8.2 g/dL Albumin Level 3.8 3.4-5.0 g/dL Globulin 3.5 Albumin Globulin Ratio 1.1 Performing Lab: see note ML - [facility] LB MAGNESIUM Reviewed date:12/24/2024 09:38:43 AM Interpretation: Performing Lab: Notes/Report: [facility] , Magnesium 1.6 1.8-2.4 mg/dL Performing Lab: see note ML - [facility] LB LIPASE Reviewed date:12/24/2024 09:38:43 AM Interpretation: Performing Lab: Notes/Report: [facility] , Lipase 40.0 16.0-77.0 U/L Performing Lab: see note ML - [facility] LB XR chest 2V Reviewed date:07/03/2024 07:25:58 PM Interpretation: Performing Lab: Notes/Report: Source Facility: [place] [address] XRay Report Signed Patient: ABRAHAM HARRY MR#: [id number] : 1960 Acct:[id number] Age/Sex: 63 / M ADM Date: 07/03/24 Loc: RAD Attending Dr: Beth Munoz M.D. Ordering Physician: Beth Munoz M.D. Date of Service: 07/03/24 Procedure(s): XR chest 2V Accession Number(s): [id number] cc: Beth Munoz M.D. [place] [address] Patient Name: ABRAHAM HARRY MRN: [id number] date: 1960 Sex: M Assigned Patient Location: [facility] Current Patient Location: [facility] Accession/Order Number: [id number] Exam Date: 07/03/2024 15:51 Report Date: 07/03/2024 15:52 At the request of: BETH MUNOZ MD Procedure: XR chest 2V PA AND LATERAL CHEST: CLINICAL HISTORY: Productive cough COMPARISON: 10/17/2023 There is shallow inspiration. There is no developing consolidation, effusion or pneumothorax. The cardiac, hilar and mediastinal silhouettes are within normal limits. There is no vascular congestion. The visualized bony thorax is intact. Tiny endplate spurs and subtle dextroscoliotic curvature are present. XR/XR chest 2V IMPRESSION: NO ACUTE CARDIOPULMONARY ABNORMALITY. Impression dictated by: Marisela Galo M.D.07/03/2024 3:52 PM Dictation Location: [place] [address] Electronically authenticated by: [id number] Y Date: 07/03/2024 15:52 Dictated By: Marisela Galo M.D. Signed By: 07/03/241554 DD/ 51 TD/TT: Human Services Case Manager: CBC AUTO DIFF Reviewed date:12/24/2024 03:55:16 PM Interpretation: Performing Lab: Notes/Report: [facility] , White Blood Count 8.0 4.0-11.0 10 3/uL Red Blood Count 4.30 4.70-6.10 10 6/uL Hemoglobin 13.6 14.0-18.0 g/dL Hematocrit 39.0 42.0-54.0 % Mean Corpuscular Volume 90.7 80.0-94.0 fL Mean Corpuscular Hemoglobin 31.6 25.9-34.0 pg Mean Corpuscular HGB Conc 34.9 29.9-35.2 g/dL Red Cell Distribution Width 13.3 11.0-15.0 % Platelet Count 222 150-450 10 3/uL Mean Platelet Volume 10.7 9.5-13.5 fL Neutrophils Percent Auto 79.6 43.0-75.0 % Lymphocytes Percent Auto 14.9 20.5-60.0 % Monocytes Percent Auto 5.0 1.7-12.0 % Eosinophils Percent Auto 0.0 0.9-7.0 % Basophils Percent Auto 0.1 0.2-2.0 % Immature Granulocytes Pct Auto 0.4 0.0-0.5 % Neutrophils Absolute Auto 6.4 1.4-6.5 10 3/uL Lymphocytes Absolute Auto 1.2 1.2-3.8 10 3/uL Monocytes Absolute Auto 0.4 0.3-0.8 10 3/uL Eosinophils Absolute Auto 0.0 0.0-0.7 10 3/uL Basophils Absolute Auto 0.0 0.0-0.1 10 3/uL Immature Granulocytes Abs Auto 0.03 0.00-0.03 10 3/uL Performing Lab: see note ML - [facility] LB Troponin I High Sensitivity Reviewed date:12/24/2024 09:38:43 AM Interpretation: Performing Lab: Notes/Report: [facility] , Troponin I High Sensitivity 9.8 4.0-76.1 pg/m L CUT-OFF POINTS HAVE BEEN ESTABLISHED BASED ON THE FOURTH UNIVERSAL DEFINITION OF MYOCARDIAL INFARCTION. THE UPPER REFERENCE LIMIT (URL) OF TROPONIN, DEFINED THE 99TH PERCENTILE OF cTnI DISTRIBUTION IN A REFERENCE POPULATION, HAS BEEN CONFIRMED THE DECISION THRESHOLD FOR MA DIAGNOSIS. 99TH PERCENTILE = 76.2 PG/ML NOTE: HIGH-SENSITIVITY TROPONIN ASSAY IS NOT INTENDED TO BE USED IN ISOLATION BUT SHOULD BE INTERPRETED IN CONJUNCTION WITH OTHER DIAGNOSTIC AND CLINICAL INFORMATION. Performing Lab: see note ML - [facility] LB MAGNESIUM Reviewed date:12/24/2024 06:18:52 PM Interpretation: Performing Lab: Notes/Report: [facility] , Magnesium 1.7 1.8-2.4 mg/dL Performing Lab: see note ML - [facility] LB CPK Reviewed date:12/24/2024 06:18:52 PM Interpretation: Performing Lab: Notes/Report: [facility] , Creatine Kinase 176 39-308 U/L Performing Lab: see note ML - [facility] LB Troponin I High Sensitivity Reviewed date:12/24/2024 06:18:52 PM Interpretation: Performing Lab: Notes/Report: [facility] , Troponin I High Sensitivity 9.8 4.0-76.1 pg/m L CUT-OFF POINTS HAVE BEEN ESTABLISHED BASED ON THE FOURTH UNIVERSAL DEFINITION OF MYOCARDIAL INFARCTION. THE UPPER REFERENCE LIMIT (URL) OF TROPONIN, DEFINED THE 99TH PERCENTILE OF cTnI DISTRIBUTION IN A REFERENCE POPULATION, HAS BEEN CONFIRMED THE DECISION THRESHOLD FOR MA DIAGNOSIS. 99TH PERCENTILE = 76.2 PG/ML NOTE: HIGH-SENSITIVITY TROPONIN ASSAY IS NOT INTENDED TO BE USED IN ISOLATION BUT SHOULD BE INTERPRETED IN CONJUNCTION WITH OTHER DIAGNOSTIC AND CLINICAL INFORMATION. Performing Lab: see note ML - [facility] LB CT angio chest Reviewed date:12/24/2024 06:18:52 PM Interpretation: Performing Lab: Notes/Report: Source Facility: [facility] [place] [address] [place] [address] CT Scan Report Signed Patient: ABRAHAM HARRY MR#: [id number] : 1960 Acct:[id number] Age/Sex: 64 / M ADM Date: 12/24/24 Loc: ER Attending Dr: Ordering Physician: Buck Prince Date of Service: 12/24/24 Procedure(s): CT angio chest Accession Number(s): [id number] cc: Beth Munoz M.D. [place] [address] Patient Name: ABRAHAM HARRY MRN: [id number] date: 1960 Sex: M Assigned Patient Location: ER Current Patient Location: ER Accession/Order Number: [id number] Exam Date: 12/24/2024 15:30 Report Date: 12/24/2024 16:04 At the request of: BUCK DOZIER Procedure: CT angio chest CT angio chest 12/24/2024 3:44 PM SIGN AND SYMPTOMS: recurrent chest pain /sob CONTRAST: 100 mL of intravenous Omnipaque 350 TECHNIQUE: Multidetector CT axial slices of the chest were obtained with IV contrast. Multiplanar reformats were performed and viewed on a separate workstation and reviewed to further define anatomy and possible pathology. CT was performed with one or more of the following dose reduction techniques: Automated exposure control, adjustment of the mA and/or kV according to patient size, or use of iterative reconstruction technique. COMPARISON: 01/25/2023. FINDINGS: Lower neck: Thyroid gland within normal limits, no supraclavicle adenopathy. Vessels: Atherosclerotic changes are present in the thoracic aorta, origins of the great vessels, and coronary arteries. There is no evidence of pulmonary embolism. Mediastinum and Su: Within normal limits. Heart: Normal size. No pericardial effusion. Airways: Within normal limits Lungs: There is a 7 mm calcified granuloma in the right lower lobe. Pleura: Within normal limits. Chest Wall: Within normal limits. Upper Abdomen: Within normal limits. Bones: Within normal limits. CT/CT angio chest IMPRESSION: No acute cardiopulmonary pathology. There is no evidence of pulmonary embolism. Impression dictated by: Denton Mohan M.D. 12/24/2024 4:04 PM Dictation Location: [place] [address] Electronically authenticated by: [id number] Y Date: 12/24/2024 16:04 Dictated By: Denton Mohan M.D. Signed By: 12/24/24 1607 DD/ 160 TD/TT: Human Services Case Manager: PROF Navarrete(COMP METB) Reviewed date:12/24/2024 06:18:52 PM Interpretation: Performing Lab: Notes/Report: [facility] , Sodium 143 136-145 mmol/L Potassium 3.6 3.5-5.1 mmol/L Chloride 105 98-107 mmol/L Carbon Dioxide 26.6 21.0-32.0 mmol/L Anion Gap 15.0 Glucose 101 74-106 mg/dL Blood Urea Nitrogen 17.0 7.0-18.0 mg/dL Creatinine 0.79 0.70-1.30 mg/dL Estimated GFR ( Tayla >60 >=60 mL/mi n/1.73m 2 Estimated GFR (Non- Katja >60 >=60 mL/mi n/1.73m 2 BUN Creatinine Ratio 21.5 Calcium 9.4 8.5-10.1 mg/dL Bilirubin Total 1.0 0.2-1.0 mg/dL Aspartate Amino Transferase 29 15-37 U/L Alanine Aminotransferase 44 16-63 U/L Alkaline Phosphatase 103 46-116 U/L Total Protein 7.5 6.4-8.2 g/dL Albumin Level 3.8 3.4-5.0 g/dL Globulin 3.7 Albumin Globulin Ratio 1.0 Performing Lab: see note ML - [facility] LB Reason For Referral Diagnosis 1 Abdominal wall herni a (K43.9) Referral Organization [facility] Referring Provider First Name Gene Referring Provider Last Name Bacilioyamel Referring Provider Speciality Family Med butch Referred Provider Marbin Sanon Referred Provider Specialty General Surg mendez Referral Priority Routine Medications Medication SIG (Take, Route, Frequency, Duration) Notes Start Date End Date Status Diclofenac Sodium 75 MG 1 tablet as need ed Orally Twice a day; Duration: 30 days 01/04/2025 Active Azelastine HCl 0.05 % 1 drop into affect ed eye Ophthalmic qd 06/28/2024 Active Benzonatate 200 MG 1 capsule Orally Thr ee times a day 12/13/2024 Active Wixela Inhub 500-50 MCG/ACT 1 puff Inhal ation BID; Duration: 90 days 05/17/2024 Active Atorvastatin Calcium 80 MG 1 tablet Oral ly Once a day 05/17/2024 Active Fasenra 30 MG/ML 1 null Subcutaneous; Duration: 30 day(s) 05/28/2024 Active predniSONE 20 MG 2 tablets Orally Onc e a day; Duration: 5 days 01/02/2025 Active Losartan Potassium 100 MG 1 tablet Orall y Once a day; Duration: 30 days 05/17/2024 Active busPIRone HCl 15 MG 1 tablet Orally thre e times daily 05/17/2024 Active Clopidogrel Bisulfate 75 MG 1 tablet Ora lly Once a day 05/17/2024 Active Metoprolol Succinate ER 50 MG 1 tablet Orally twice a day; Duration: 30 days 05/17/2024 Active Albuterol Sulfate (2.5 MG/3ML) 0.083% 3 mL as needed Inhalation every 6 hrs 05/17/2024 Active Vitamin D3 125 MCG (5000 UT) 1 capsule Orally Once a day 05/17/2024 Active Albuterol Sulfate HFA 108 (90 Base) MCG/ACT 2 puff as needed Inhalation every 4 hrs 12/13/2024 Active Azithromycin 250 MG 2 tabs today then 1 tab Orally daily; Duration: 5 days 01/02/2025 Active Spiriva Respimat 2.5 MCG/ACT 2 puffs Inhalation Once a day; Duration: 90 days Active Immunizations Vaccine Route Administration Date Status Comme nts Abrysvo Unknown 02/14/2024 Administered Pneumococcal (Prevnar 20) Unknown 12/11/2021 Administer ed SARS-COV-2 (COVID 19 Moderna - Booster 0.25mL) Unknown 09/19/2020 Administered Tdap (Boostrix) Unknown 08/09/2016 Administered ZOSTER (SHINGLES) VACCINE (HZV) Unknown 01/23/2019 Admi nistered Social History Tobacco Use: Social History Observation [...] Problem Status W/U Status Risk Notes Problem Uncomplicated severe persistent asthma (188897400) Severe persistent asthma, uncomplicated (J45.50) Active confirmed Problem Long-term current us e of inhaled steroid (993408831) senior care (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 inhaled steroids (Z79.51) Active confirmed Problem Hypertension (61903840) Hypertension (I10) Active confirmed Problem Obesity (645139379) Obesity (E66.9) Active conf irmed Problem Hernia of anterior abdominal wall (disorder) (349819824) Abdominal wall hernia (K43.9) Active confirmed Problem Ex-tobacco user (finding) (704860908) History of tobacco abuse (Z87.891) Active confirmed Problem Coronary heart disease (20016476) Coronary heart disease (I25.10) Active confirmed Problem Hypercholesterolemia (39195818) Hypercholesterolemia (E78.00) Active confirmed Problem Malignant neoplasm o f skin (disorder) (328384769) Skin carcinoma (C44.99) Active confirmed Problem Chest pain (74231629) Costochond ral chest pain (R07.89) Active confirmed Problem Peripheral eosinophilia (D72.19) Active confirmed Vital Signs Heart Rate 109 /min 10/02/2024 Temperature 97.0 degrees Fahrenheit 10/02/2024 Respiratory Rate 18 /min 10/02/2024 Oximetry 97 % 10/02/2024 Blood pressure diastolic 82 mm Hg 01/02/2025 Height 71.5 in 01/02/2025 Blood pressure systolic 162 mm Hg 01/02/2025 Weight 263 lbs 01/02/2025 BMI 36.17 kg/m2 01/02/2025 Encounters Encounter Location Date Provider Diagnosis [facility] [address] [place] [address] 05/17/2024 Gene Hoy Well adult Z00.00 [facility] [address] [place] [address] 05/25/2024 Gene Hoy Hypertension I10 [facility] [address] [place] [address] 05/30/2024 Gene Munoz Acute bronchitis, unspecified organism J20.9 [facility] [address] [place] [address] 06/28/2024 Gene Munoz COPD (chronic obstructive pulmonary disease) J44.9 and Acute bronchiolitis J21.9 [facility] [place] [address] [place] [address] 10/02/2024 Saleem Garcia Severe persistent asthma, uncomplicated J45.50 ; Peripheral eosinophilia D72.19 ; senior care (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 inhaled steroids Z79.51 ; History of tobacco abuse Z87.891 and Obesity E66.9 [facility] [address] [place] [address] 12/13/2024 Gene Munoz Hypertension I10 ; Severe persistent asthma, uncomplicated J45.50 and Abdominal wall hernia K43.9 [facility] [address] [place] [address] 01/02/2025 Gene Munoz Costochondral chest pain R07.89 and Hypertension I10 [facility] [address] [facility] [place] [address] 05/25/2024 Gene Munoz [facility] [address] [facility] [place] [address] 05/28/2024 Gene Munoz [facility] [address] [place] [address] 06/05/2024 Gene Munoz [facility] [address] [facility] [place] [address] 07/02/2024 Gene Riberay [facility] [address] [facility] [place] [address] 07/03/2024 Gene Munoz Advanced COPD J44.9 [facility] [address] [place] [address] 07/03/2024 Gene Munoz Advanced COPD J44.9 [facility] [address] [facility] [place] [address] 07/03/2024 Gene Munoz [facility] [place] [address] [place] [address] 07/26/[address] [facility] Pulmonary [facility] [address] [place] [address] 09/17/2024 Saleem [facility] [address] [place] [address] 10/03/2024 Saleem [facility] [address] [place] [address] 11/07/2024 [facility] [address] [facility] [place] [address] 12/24/2024 Gene Munoz [facility] [address] [facility] [place] [address] 12/24/2024 Gene Munoz [facility] [address] [facility] [place] [address] 01/04/2025 Gene Munoz Well adult Z00.00 [facility] [address] [facility] [place] [address] 01/07/2025 Gene Munoz Assessments Encounter Date Diagnosis (ICD Code) Assessment Notes Treatment Notes Treatment Clinical Notes Section Notes 05/17/2024 Well adult (ICD-10 - Z00.00) 05/25/2024 Hypertension (ICD-10 - I10) 05/30/2024 Acute bronchitis, unspecified organism (ICD-10 - J20.9) Rest and drink more liquids, especially water. You may use a humidifier or vaporizer to help keep the drainage moist. Ntqi-qkq-fafitgp Nasal Saline may help the stuffy and runny nose. Use Ibuprofen and or Tylenol as needed for fever, chills, body aches or pain. Children 5 years old should not be given xsvo-dgn-bpkgdqv cough and cold medications such as guaifenesin and dextromethorphan. If you're over age 5, you may try pmbi-cdg-snsdaye cold medications such as guaifenesin and dextromethorphan, or multi-symptom cold reliever such as Dayquil to help reduce the symptoms. Antibiotics have been prescribed. You should take these until completed and follow the directions. Antibiotics can sometimes cause upset stomach, and in rare cases, serious allergic reactions or serious gastrointestinal problems. If you start having severe abdominal pain, severe vomiting, or bloody diarrhea, you should be reevaluated by your physician or urgent care immediately. Follow up with your Primary Care Provider or return to clinic if symptoms do not improve within 3-5 days. If you develop severe symptoms such as shortness of breath, repeated vomiting, coughing up blood, or chest pain you should go to the emergency room or call 911 06/28/2024 COPD (chronic obstructive pulmonary disease) (ICD-10 - J44.9) 06/28/2024 Acute bronchiolitis (ICD-10 - J21.9) 10/02/2024 Severe persistent asthma, uncomplicated (ICD-10 - J45.50) Prior treatment: Fasenra ; Wixela 500 > Symbicort 160 > Wixela 250 ; Yupelri > Spiriva Patient's breathing is finally improving some now that he is on triple inhaled therapy (Wixela 500 + Spiriva 2.5) and Fasenra. Despite this intense treatment, he continues to have symptoms requiring albuterol ~2 times a day. He cannot identify the trigger. Albuterol has only mild improvement. Recommend changing albuterol to AirSupra (albuterol + budesonide). He voiced agreement. He is not to use the two together. Counseled to rinse after use. Continue current treatment otherwise. F/U 3 months. If still symptomatic, options include changing biologics (e.g. Dupixent) or referral for allergy testing. 10/02/2024 Peripheral eosinophilia (ICD-10 - D72.19) Eosinophils: -03/22/2023: 3.4% / 300 -08/31/2019: 4.3% / 400 Continue Fasenra. 12/13/2024 Severe persistent asthma, uncomplicated (ICD-10 - J45.50) 12/13/2024 Hypertension (ICD-10 - I10) 01/02/2025 Hypertension (ICD-10 - I10) 01/02/2025 Costochondral chest pain (ICD-10 - R07.89) 07/03/2024 Advanced COPD (ICD-10 - J44.9) 07/03/2024 Advanced COPD (ICD-10 - J44.9) 01/04/2025 Well adult (ICD-10 - Z00.00) 12/13/2024 Abdominal wall hernia (ICD-10 - K43.9) 10/02/2024 senior care (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 inhaled steroids (ICD-10 - Z79.51) Patient was counseled to rinse & gargle with water after inhaled corticosteroid use. 10/02/2024 History of tobacco abuse (ICD-10 - Z87.891) This patient does not meet current LDCT criteria (e.g. age, time from cessation, # pack-years). 10/02/2024 Obesity (ICD-10 - E66.9) Patient's weight is inducing a restrictive pulmonary physiology. Weight loss indicated: Decrease calories, increase activity. Plan Of Treatment Pending Test Test Name Order Date XR CHEST 1 V 07/03/2024 XR CHEST 2 V 07/03/2024 Insurance Providers Payer Name Payer Address Payer Phone Subscriber Number Group Number Insured Name Patient Relationship to Insured Coverage Start Date Coverage End Date [employer] [address] [place] [phone] [id number] Abraham Harry Self - patient is the insured Medications Administered Medication Instructions Date of Administration Dosage Notes Ceftriaxone 1 gram 05/30/2024 1 g Dexamethasone, 4mg/mL 05/30/2024 12 mg Dexamethasone, 4mg/mL 01/02/2025 8 mg Ketorolac Tromethamine 01/02/2025 60 mg Medical (General) History Medical History History ICD Code Skin carcinoma C44.99 COPD (chronic obstructive pulmonary dise ase) J44.9 Coronary heart disease I25.10 Hypercholesterolemia E78.00 Hypertension I10 Severe persistent asthma, uncomplicated J45.50 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
--- OUTSIDE RECORDS SUMMARY | 2025-01-15 07:05 | XMS_ITS | Encounter Summary ---
Author Organization [facility] Address [address] [place] [address] Phone Care Team Providers Care Homoeopath Name Role Phone Gabriel Munoz MD Primary Care Provider [phone] Nirav Valdez DO Primary Care Provider [phone] Gabriel Munoz MD Primary Care Provider [phone] Encounter Details Date Type Department Care Team (Late st Contact Info) Description 04/07/2020 Orders Only [facility] [address] [place] [address] Conversion, Onbase Social History Tobacco Use Types [...] Description 01/17/2025 1:30 PM EDT Office Visit [facility] [address] [place] [id number] Rey Leiva DO [address] [facility] [address] [place], [place] [id number] Scheduled Orders Name Type Priority Associated Diagnoses Orde r Schedule OUTSIDE LAB SCAN Lab Ordered: 04/07/2020 documented as of this encounter Visit Diagnoses Not on filedocumented in this encounter Care Teams Homoeopath Relationship Specialty Start Date End Date Gabriel Munoz MD [address] [facility] [place] [address] PCP - General 05/02/99 04/14/22 Nirav Valdez DO [address] [place] [id number] PCP - General 04/15/22 12/23/24 Gabriel Munoz MD [address] [place] [id number] PCP - General Family Medicine 12/24/24 documented as of this encounter
--- OUTSIDE RECORDS SUMMARY | 2025-01-15 07:06 | XMS_ITS | CCD ---
Author Organization [facility]iniSyok Care Team Providers Care Food Service Manager Name Role Phone JB, SUKHWINDER Unavailable Unavailable POCRYLAN DICKSON Unavailable Unavailable HAMPOLE, SUKHWINDER Unavailable Unavailable HOUSE SR, NIRAV MARIA Unavailable Unavai lable HAMPOLE, SUKHWINDER Unavailable Unavailable HOUSE SR, NIRAV MARIA Unavailable Unavai lable Unavailable Unavailable Gabriel Munoz Unavailable Chan Taylor Unavailable ANT, DR GASTELUM Primary Care Unavailable UMESH, DR LORETTA Carrillo Admitting Unavailable UMESH, DR LORETTA Carrillo Attending Unavailable JACOBY LESTER Consulting Unavailable EDIN SELF Consulting Unavailable ANT, DR GASTELUM Admitting Unavailable HOUSE, DR GASTELUM Attending Unavailable HOUSE, DR GASTELUM Primary Care Unavailable HOUSE, DR GASTELUM Admitting Unavailable HOUSE, DR GASTELUM Attending Unavailable HOUSE, DR GASTELUM Primary Care Unavailable HOUSE, DR GASTELUM Consulting Unavailable Nirav Cain Unavailable DO Nirav Cain Primary Care Provider [phone] MD Chan Taylor Attending Provider Ant, Dr. Nirav Maria Primary Care Unava REY Garrett Attending Unavailable [...] Unava ilmargi Baca II, Dr. Rey Stevens Referring Unavailable House, Dr. Nirav Maria Primary Care Unava ilable Keven WHITFIELD, Dr. Rey Stevens Attending Unavailable SARIAH NICHOLS Attending Unavailable JAMIA DE LVALLE Consulting Unavailable PAYAMADOU Referring Unavailable SARIAH NICHOLS Admitting Unavailable House, DO Gastelum Primary Care Provider MD Chan Taylor Attending Provider [phone] NIRAV CAIN Primary Care Physician [phone] MD Marbin Ceballos Attending Provider [phone] DO Nirav Cain Primary Care Provider [phone] Ly, DO Harriet Garzon Attending Provider Samsa, DO Saleem Mayers Attending Provider [phone] Nirav Cain Primary Care Unavailable Samsa, Saleem P Admitting Unavailable Samsa, Saleem P Attending Unavailable House, Nirav Primary Care Unavailable Chaban, Kamal Admitting Unavailable Chaban, Chan Attending Unavailable House, Nirav Primary Care Unavailable Chaban, Chan Admitting Unavailable Chaban, Chan Attending Unavailable House, Nirav Primary Care Unavailable LyHarriet Admitting Unavailable LyHarriet Attending Unavailable NillMarbin Admitting Unavailable Nill, Marbin Carrillo Attending Unavailable House Nirav LADD Primary Care Provider NIRAV CAIN Primary Care Unavailable HOUSE, DO NIRAV Mayers Attending Unavailable HOUSE, DO NIRAV P Attending Unavailable HOUSE, NIRAV P Primary Care Unavailable HOUSE, DO NIRAV P Attending Unavailable HOUSE, NIRAV P Primary Care Unavailable REY LEIVA Attending Unavailable HOUSE, NIRAV Mayers Primary Care Unavailable NICANOR CALVO Attending Unavailable REY LEIVA Referring Unavailable HOUSE, NIRAV Mayers Primary Care Unavailable Gabriel Munoz Primary Care Physician Gabriel Munoz Referring Unavailable NILMarbin Garzon Attending Unavailable NILL, Marbin Carrillo Attending Unavailable Allergies Allergy Classification Reported Allergen(s) Allergy Type Date of Onset Reaction(s) Facility (8 sources) Adhesive Tape; Translations: [Tape] Drug allergy irritation [facility] (2 sources) No Known Medication Allergies; Translations: [No Known Medication Allergies] Propensity to adverse reactions to drug (disorder) [facility] Repository Medications Current Medications Medication Drug Class(es) Dates Sig (Normalized) Sig (Original) Acetaminophen (1 source) Start: 01-25-2023 acetaminophen (TYLENOL) tablet 650 mg Albuterol (20 sources) beta2-Adrenergic Agonist Start: 12-21-2024 take 2 puff(s) by inhalation every four hours Albuterol (Eqv-ProAir HFA) 2 puff(s), Inhalation, q4hr Shortness of breath or wheezing, Refill(s) 0 Start Date: 12/21/24 Status: Ordered Repeat number: 1 Start: 12-26-2023 Albuterol Sulf ate 2.5 mg /3 mL (0.083 %) solution for nebulization Active 2.5 MG CNTNEBULIZ Four times daily as needed for Shortness Of Breath December 26, 2023 1:03pm Start: 07-07-2023 take 2.5 mg by inhal ation every six hours albuterol 0.083% Inh Daniella 3 mL 2.5 mg, 3 mL, NEB, q6hr Shortness of breath or wheezing, Refill(s) 0 Start Date: 07/07/23 Status: Ordered Repeat number: 1 Start: 01-26-2023 2.5 mg, Nebuli zation, EVERY [...] Refills(s) 0 Start Date: 01/12/23 Status: Ordered Repeat number: 1 Start: 08-31-2019 End: 09-01-2019 take 1 tablet by mouth once daily in the evening Atorvastatin (Lipitor) 40 mg Tablet Discontinued 40 MG PO Every evening August 30, 2019 11:00pm September 01, 2019 10:57am 1 ml benralizumab 30 mg/ml auto-injector (5 sources) Interleukin-5 Receptor alpha-directed Cytolytic Antibody Start: 12-21-2024 Fasenra Pen 30 mg/mL subcutaneous solution as directed, Refills(s) 0 Start Date: 12/21/24 Status: Ordered Repeat number: 1 Start: 02-09-2024 End: 02-13-2024 Benralizumab (Fasenra Pen) 3 0 mg/mL auto-injector Discontinued 30 MG SUBCUT EVERY 4 WEEKS 4 90 February 13, 2024 8:27am February 13, 2024 8:30am 30mg/1 ml SQ monthly x 3 doses , then 30mg/1 ml every 8 weeks DX J45.50 benralizumab (FASENRA SUBQ) (1 source) inject 1 dose by subcutaneous injection every 30 days benralizumab (FASENRA SUBQ) Inject 1 Dose under the skin every 30 (thirty) days. Active budesonide 0.25 mg/ml inhalation suspension (3 sources) Corticosteroid Start: 03-22-20 take 2 mL by inhalation twice daily Budesonide 0.5 MG/2ML 2 ml Inhalation Twice a day for 30 day(s) Mar, Active busPIRone hydrochloride 15 mg oral tablet (8 sources) Start: 12-22-19 take 1 tablet by mouth three times daily as needed for anxiety busPIRone 15 mg Tab 15 mg = 1 tab(s), Oral, TID, PRN anxiety, Refills(s) 0 Start Date: 12/21/24 Status: Ordered Repeat number: 1 Start: 01-09-2024 take 1 tablet by robert th three times daily Buspirone 15 mg tablet [...] Refills(s) 0 Start Date: 01/12/23 Status: Ordered Repeat number: 1 codeine phosphate 2 mg/ml / promethazine hydrochloride [...] 19, 2023 12:00am take 1 puff(s) by mo [facility] twice daily fluticasone propion-salmeteroL (Advair Diskus) 500-50 mcg/dose diskus inhaler Inhale 1 puff 2 times a day. Rinse mouth with water after use to reduce aftertaste and incidence of candidiasis. Do not swallow. Active losartan potassium 100 mg oral tablet (20 sources) Angiotensin 2 Receptor Avani Start: 01-09-2025 take 1 tablet by mouth once daily losartan 100 mg Tab 100 mg = 1 tab(s), Oral, Daily, Refills(s) 0 Start Date: 01/09/25 Status: Ordered Repeat number: 1 Start: 12-21-2024 [facility] 100 mg Tab 100 mg = 1 tab(s), Oral, Daily, Refills(s) 0 Start Date: 12/21/24 Status: Ordered Repeat number: 1 Start: 06-25-2024 take 1 tablet by robert once daily Losartan 100 mg tablet Active [...] Discontinued Do not crush or chew. Start: 01-12-2023 take 1 tablet by robert twice daily metoprolol 50 mg ER Tab 50 mg = 1 tab(s), Oral, BID, Refills(s) 0 Start Date: 01/12/23 Status: Ordered Repeat number: 1 Start: 08-31-2019 End: 01-16-2025 take 1 tablet by mouth once daily metoprolol 50 mg ER Tab 50 mg = 1 tab(s), Oral, Daily, Refills(s) 0 Start Date: 01/12/23 Status: Ordered Repeat number: 1 ondansetron (ZOFRAN-ODT) disintegrating tablet 4 mg (1 [...] Discontinued 175 MCG INHALATION Daily 90 July 10, 2023 11:00pm July 18, 2023 [...] BID, COPD Start Date: 11/10/16 Status: Ordered 10 actuat tiotropium 0.0025 mg/actuat inhalation spray (10 sources) Anticholinergic Start: 12-21-2024 Spiriva Respim at 10 ACT 2.5 mcg/inh inhalation aerosol = 2 inh, Inhalation, Daily, Refills(s) 0 Start Date: 12/21/24 Status: Ordered Repeat number: 1 Start: 08-31-2019 End: 09-12-2023 take 1 capsule by inhalation once daily in the morning Tiotropium Ewing (Spiriva With Handihaler) 18 mcg Capsule, W/Inhalation Device Discontinued 1 CAP INHALATION Every morning August 30, 2019 11:00pm September 12, 2023 12:47pm Umeclidinium (1 source) Anticholinergic Start: 06-25-2024 take 62.5 ug by inhalation once daily Umeclidinium (Incruse Ellipta) 62.5 mcg/actuation blister with device Active 1 INH INHALATION Daily June 25, 2024 12:00am Vitamin D3 5000 intl units oral capsule (2 sources) Start: 12-21-2024 take 1 capsule by mouth once daily at mealtime Vitamin D3 5000 intl units oral capsule 125 mcg = 1 cap(s), Oral, Daily, with food, Refills(s) 0 Start Date: 12/21/24 Status: Ordered Repeat number: 1 Wixela Inhub (6 sources) Start: 07-12-2023 take 1 puff(s) by inhalation twice daily Wixela Inhub 1 puff, Inhalation, BID, Refill(s) 0 Start Date: 07/12/23 Status: Ordered Repeat number: 1 Start: 07-12-2023 take 1 puff(s) by in halation twice daily Wixela Inhub 1 puff, Inhalation, BID, Refill(s) 0 Start Date: 07/12/23 Status: Ordered Completed/Discontinued Medications Medication Drug Class(es) Dates Sig (Normalized) Sig (Original) aspirin 81 mg chewable tablet (20 sources) Platelet Aggregation Inhibitor, Nonsteroidal Anti-inflammatory Drug Start: 08-31-2019 End: 09-19-2023 Aspirin (Lexx Chewable Aspirin) 81 mg Tablet,Chewable Discontinued 81 MG PO Every morning 0 September 01, 2019 10:42am September 19, 2023 12:18pm continue daily ASA through 09/21/19 then discontinue per neurology orders 120 actuat budesonide 0.16 mg/actuat / formoterol [...] inhaler Discontinued 2 INH INHALATION Twice daily 05 31September 18, 2023 11:00pm September 19, 2023 2:59pm [...] as directed Sublingual Active polyethylene glycol 3350 70441 mg powder for oral solution (1 source) [...] Active Problems Problem Classification Problem Date Documented Da te Episodic/Chronic Abdominal hernia (9 sources) Incisional hernia; Translations: [Incisional hernia without obstruction or gangrene] Onset: 4 Episodic Abdominal pain (16 sources) Unspecified abdominal pain; Translations: [Abdominal pain] Onset: 1 Resolved: 3 Episodic Acute cerebrovascular disease (19 sources) Cerebrovascular accident; Translations: [Cerebral artery occlusion, unspecified with cerebral infarction] Onset: 4 09-01-2019 Chronic Comment on above: Problem List clean-u p per request of Phys. EHR Cmte Asthma (20 sources) Asthma; Translations: [Asthma, unspecified type, unspecified] Onset: 4 01-19-2023 Chronic Biliary tract disease (9 sources) Calculus of gallbladder without cholecystitis without obstruction; Translations: [Acute cholecystitis] Onset: 1 Episodic Blindness and vision defects (8 sources) Transient visual loss; Translations: [Transient visual loss, unspecified eye] 08-31-2019 Episodic Comment on above: Problem List clean-u p per request of Phys. EHR Cmte Chronic obstructive pulmonary disease and bronchiectasis (20 sources) Chronic obstructive lung disease; Translations: [Chronic airway obstruction, not elsewhere classified] Onset: 2 Resolved: 3 Chronic Conditions associated with dizziness or vertigo (5 sources) Dizziness and giddiness; Translations: [Dizziness] Onset: 2 Resolved: 2 Episodic Congestive heart failure; nonhypertensive (13 sources) Unspecified systolic (congestive) heart failure; Translations: [Acute on chronic systolic heart failure] Onset: 6 01-12-2023 Chronic Coronary atherosclerosis and other heart disease (20 sources) Atherosclerotic heart disease of [place] coronary artery without angina pectoris; Translations: [Coronary arteriosclerosis] Onset: 6 Resolved: 2 Chronic Diabetes mellitus without complication (7 sources) Prediabetes 01-12-2023 Episodic Diseases of white blood cells (6 sources) Familial eosinophilia; 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 Disorders of lipid metabolism (20 sources) Hyperlipidemia; Translations: [Other and unspecified hyperlipidemia] Onset: 4 08-31-2019 Chronic Essential hypertension (20 sources) Hypertensive disorder; Translations: [Unspecified essential hypertension] Onset: 3 08-31-2019 Chronic Nonspecific chest pain (3 sources) Chest pain; Translations: [Chest pain, unspecified] Onset: 3 Episodic Other aftercare (2 sources) Long-term current use of inhaled steroid; Translations: [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 inhaled steroids] 12-26-2023 Episodic Other aftercare (2 sources) 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 inhaled steroids; Translations: [Long-term (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 steroids] 12-26-2023 Episodic Other circulatory disease (7 sources) History of cerebrovascular accident 01-19-2023 Episodic Other circulatory disease (7 sources) History of transient ischemic attack 01-19-2023 Episodic Other connective tissue disease (7 sources) Disorder of rotator cuff 11-10-2016 Episodic Other connective tissue disease (7 sources) Plantar fasciitis 07-08-2015 Episodic Other connective tissue disease (1 source) Diastasis of muscle; Translations: [Separation of muscle (nontraumatic), other site] Onset: 5 Episodic Other connective tissue disease (1 source) Diastasis recti 01-09-2025 Episodic Other gastrointestinal disorders (1 source) H/O: gastrointestinal disease; Translations: [Personal history of other diseases of the digestive system] Onset: 5 Episodic Other liver diseases (2 sources) Enzyme level - finding; Translations: [Transaminitis] Onset: 3 01-25-2023 Episodic Other liver diseases (2 sources) Increased bilirubin level; Translations: [Unspecified jaundice] Onset: 3 01-25-2023 Episodic Other liver diseases (2 sources) Alkaline phosphatase raised; Translations: [Abnormal levels of other serum enzymes] Onset: 3 01-25-2023 Episodic Other non-epithelial cancer of skin (6 sources) History of malignant basal cell neoplasm of skin 07-07-2023 Episodic Other nutritional; endocrine; and metabolic disorders (13 sources) Obesity; Translations: [Obesity, unspecified] 07-08-2015 Chronic Other nutritional; endocrine; and metabolic disorders (9 sources) Body mass index 30+ - obesity; Translations: [Body mass index (BMI) 37.0-37.9, adult] Onset: 4 07-12-2023 Chronic Other nutritional; endocrine; and metabolic disorders (6 sources) Morbid obesity 07-12-2023 Chronic Other nutritional; endocrine; and metabolic disorders (2 sources) Body mass index (BMI) 37.0-37.9, adult; Translations: [Body mass index (BMI) 37.0-37.9, adult] Onset: 4 Chronic Other screening for suspected conditions (not mental disorders or infectious disease) (3 sources) Increased lactic acid level; Translations: [Other specified abnormal findings of blood chemistry] Onset: 3 Resolved: 3 01-26-2023 Episodic Christiane-; endo-; and myocarditis; cardiomyopathy (except that caused by tuberculosis or sexually transmitted disease) (7 sources) Cardiomyopathy 07-08-2015 Chronic Residual codes; unclassified (2 sources) History of excision of intestinal structure; Translations: [Acquired absence of other specified parts of digestive tract] Onset: 3 01-25-2023 Episodic Residual codes; unclassified (5 sources) History of repair of umbilical hernia; Translations: [Other specified postprocedural states] 09-19-2023 Episodic Comment on above: 09/15/23 [facility] Residual codes; unclassified (1 source) Past history of procedure; Translations: [Other specified postprocedural states] Onset: 5 Episodic Transient cerebral ischemia (8 sources) Transient cerebral ischemia; Translations: [Transient cerebral ischemic attack, unspecified] 08-31-2019 Chronic Comment on above: Problem List clean-u p per request of Phys. EHR Cmte Unclassified (1 source) Other eosinophilia; Translations: [Other eosinophilia] Onset: Unclassified (1 source) History of hernia repair 01-09-2025 Past or Other Problems Problem Classification Problem Date Documented Da te Episodic/Chronic Other aftercare (1 source) Encounter for follow-up examination after completed treatment for conditions other than malignant neoplasm; Translations: [Encounter for follow-up examination after completed treatment for conditions other than malignant neoplasm] Onset: 11-15-2016 Episodic Other aftercare (1 source) Other mcfp (current) drug therapy; Translations: [OTH SHELTER CURRENT DRUG THERAPY] Onset: 04-28-2021 Episodic Other circulatory disease (6 sources) H/O: hypertension; Translations: [Personal history of other diseases of circulatory system] Resolved: 04-16-2021 Episodic Screening and history of mental health and substance abuse codes (14 sources) Personal history of nicotine dependence; Translations: [Ex-smoker] Onset: 04-28-2021 12-26-2023 Episodic Comment on above: quit 2006 minimal sm oker; Results Test Name Value Interpretation Reference Range Facility Ambulatory Visit Summaryon 0 01-09-2025 Ambulatory Visit Summary Ambulatory Visit Summary ABRAHAM HARRY :1960 Visit Date:01/09/2025 Ambulatory Visit Instructions Your Care Team Attending Physician - LIN FENTON, Marbin Carrillo Primary Care Physician - Gabriel Munoz MD This Is Your Medications List Contact prescribing physician if questions or concerns albuterol (Albuterol (Eqv-ProAir HFA)) albuterol (albuterol 0.083% Inh Daniella 3 mL) atorvastatin (atorvastatin 80 mg Tab) benralizumab (Fasenra Pen 30 mg/mL subcutaneous solution) busPIRone (busPIRone 15 mg Tab) cholecalciferol (Vitamin D3 5000 intl units oral capsule) clopidogrel (Plavix 75 mg Tab) fluticasone-salmeterol (Wixela Inhub) losartan (losartan 100 mg Tab) metoprolol (metoprolol 50 mg ER Tab) tiotropium (Spiriva Respimat 10 ACT 2.5 mcg/inh inhalation aerosol) Procedures Performed Repair of incisional hernia (09/14/2023), Laparoscopic cholecystectomy (01/10/2023), Colonoscopy (09/17/2020), Right shoulder arthroscopy with extensive glenohumeral debridement, subacromial decompression, mini-open rotator cuff repair (11/23/2016), Rt/Lt Heart Catheterization (07/11/2015), Colonoscopy, Excision of basal cell carcinoma, Repair of right inguinal hernia, Small bowel resection, Tonsillectomy. Discharge Vitals Heart Rate (Peripheral) 76 Respiratory Rate 16 Blood Pressure 138/70 Height 180 cm Height 71 in Weight 118.4 kg Weight 261.027 lb BMI 36.54 Medications What How Much When Instructions Unchanged albuterol (Albuterol (Eqv-ProAir HFA)) 2 Puffs Inhalation Every 4 hours as needed for Shortness of breath or wheezing Contact prescribing physician if questions or concerns Unchanged albuterol (albuterol 0.083% Inh Daniella 3 mL) 3 Milliliter Nebulized inhalation (aerosol) Every 6 hours as needed for Shortness of breath or wheezing Contact prescribing physician if questions or concerns Unchanged atorvastatin (atorvastatin 80 mg Tab) 1 Tablets By Mouth Every day Contact prescribing physician if questions or concerns Unchanged benralizumab (Fasenra Pen 30 mg/ mL subcutaneous solution) as directed Contact prescribing physician if questions or concerns Unchanged busPIRone (busPIRone 15 mg Tab) 1 Tablets By Mouth 3 times a day as needed for anxiety Contact prescribing physician if questions or concerns Unchanged cholecalciferol (Vitamin D3 5000 intl units oral capsule) 1 Capsules By Mouth Every day with food Contact prescribing physician if questions or concerns Unchanged clopidogrel (Plavix 75 mg Tab) 1 Tablets By Mouth Every day Contact prescribing physician if questions or concerns Unchanged fluticasone-salmeterol (Wixela Inhub) 1 puff Inhalation 2 times a day Contact prescribing physician if questions or concerns Unchanged losartan (losartan 100 mg Tab) 1 Tablets By Mouth Every day Contact prescribing physician if questions or concerns Unchanged metoprolol (metoprolol 50 mg ER Tab) 1 Tablets By Mouth 2 times a day Contact prescribing physician if questions or concerns Unchanged tiotropium (Spiriva Respimat 10 ACT 2.5 mcg/ inh inhalation aerosol) 2 Inhalation Inhalation Every day Contact prescribing physician if questions or concerns Allergies Tape (irritation) Problems Ongoing - Any problem that you are currently receiving treatment for. Asthma BMI 36.0-36.9,adult Chronic obstructive pulmonary disease Combined systolic and diastolic dysfunction Coronary atherosclerosis Familial eosinophilia History of basal cell carcinoma History of CVA (cerebrovascular accident) Hypercholesterolemia Hypertensive disorder Morbid obesity Prediabetes Historical - Any problem that you are no longer receiving treatment for. Acute gangrenous cholecystitis Cardiomyopathy Chronic obstructive lung disease COPD (chronic obstructive pulmonary disease) Epigastric pain History of TIA (transient ischemic attack) HTN (hypertension) Incisional hernia Obesity Plantar fasciitis Patient Survey You may receive a survey via text or e-mail asking about your office visit. Please share your experience with us by completing your survey. We appreciate your feedback and thank you for choosing us for your care. Patient Portal You may access all of your results and other medical record information on our secure patient portal. If you are not signed up for this yet, please contact [employer] at [phone] to get signed up today. Language Information Language assistance services are available as needed. [facility] Consultation/Specialist Note on 06-25-2024 Consultation/Speciali st Note [id number]#1.00OTGTIF [facility] Cardiology Consultationon Cardiology Consultation [id number]#1.00OTGTIFF [facility] Consultation/Specialist Note on 03-26-2024 Consultation/Speciali st Note [id number]#1.[facility] Automated basophil %Ordered By: Saleem Garcia on 01-17-2024 Basophils/100 WBC (Bld) 0.5 % Normal . [facility] Comment on above: Performed By: #### C BC #### [facility] [address] [place] [address] Automated basophil countOrde red By: Saleem Garcia on 01-17-2024 Basophils (Bld) [#/Vol] 0.0 10*3/uL Normal 0.0-0.2 [facility] Comment on above: Result Comment: PERF ORMED BY: [place] [address] PATHOLOGIST MOLD CHECKER EDUARD MARCANO M.D. Performed By: #### C BC #### [address] Automated blood monocyte cou ntOrdered By: Saleem Wong on 01-17-2024 Monocytes (Bld) [#/Vol] 0.5 10*3/uL Normal 0.0-0.8 [facility] Comment on above: Performed By: #### C BC #### [address] Automated eosinophil %Ordere d By: Saleem Wong on 01-17-2024 Eosinophils/100 WBC (Bld) 2.7 % Normal . [facility] Comment on above: Performed By: #### C BC #### [address] Automated eosinophil countOr dered By: Saleem Wong on 01-17-2024 Eosinophils (Bld) [#/Vol] 0.2 10*3/uL Normal 0.0-0.45 [facility] Comment on above: Performed By: #### C BC #### [address] Automated monocyte %Ordered By: Saleem Wong on 01-17-2024 Monocytes/100 WBC (Bld) 6.2 % Normal . [facility] Comment on above: Performed By: #### C BC #### [address] Automated neutrophil %Ordere d By: Saleemzandra Wong on 01-17-2024 Neutrophils/100 WBC (Bld) 76.7 % Normal . [facility] Comment on above: Performed By: #### C BC #### [address] Complete Blood Count Auto Di ffon 01-17-2024 Mean Corpuscular HGB Conc 34.5 g/dL Normal 32.5-35.6 [facility] Comment on above: Performed By: #### C BC #### [address] NRBC% 0.0 /100{WBC} Normal 0-0.5 [facility] Comment on above: Performed By: #### C BC #### [address] Consultation/Specialist Note on 01-17-2024 Consultation/Speciali st Note [id number]#1.00OTGTIF F Normal [facility] Erythrocyte distribution wid th [Ratio] by Automated countOrdered By: Saleem Garcia on 01-17-2024 Erythrocyte distribution width (RBC) [Ratio] 13.7 % Normal 12.0-14.8 [facility] Comment on above: Performed By: #### C BC #### [address] Erythrocytes [#/volume] in B lood by Automated countOrdered By: Saleem Garcia on 01-17-2024 RBC (Bld) [#/Vol] 4.08 10*6/uL Normal 3.90-5.60 [facility] Comment on above: Performed By: #### C BC #### [address] Hematocrit [Volume Fraction] of Blood by Automated countOrdered By: Saleem Garcia on 01-17-2024 Hematocrit (Bld) [Volume fraction] 37.5 % Low 38.8-50.0 [facility] Comment on above: Performed By: #### C BC #### [address] Hemoglobin [Mass/volume] in BloodOrdered By: Saleem Garcia on 01-17-2024 Hemoglobin (Bld) [Mass/Vol] 12.9 g/dL Low 13.0-17.0 [facility] Comment on above: Performed By: #### C BC #### [address] Leukocytes [#/volume] correc brandyn for nucleated erythrocytes in Blood by Automated counOrdered By: Saleem Garcia on 01-17-2024 WBC corrected for nucl RBC Auto (Bld) [#/Vol] 7.9 10*3/uL 4.1-10.5 [facility] Leukocytes [#/volume] in Blo od by Automated countOrdered By: Saleem Garcia on 01-17-2024 WBC (Bld) [#/Vol] 7.9 10*3/uL Normal 4.1-10.5 [facility] Comment on above: Performed By: #### C BC #### [address] Lymphocytes [#/volume] in Bl ood by Automated countOrdered By: Saelem Garcia on 01-17-2024 Lymphocytes (Bld) [#/Vol] 1.1 10*3/uL Normal 1.00-4.8 [facility] Comment on above: Performed By: #### C BC #### [address] Lymphocytes/100 leukocytes i n Blood by Automated countOrdered By: Saleem Garcia on 01-17-2024 Lymphocytes/100 WBC (Bld) 13.9 % Normal . [facility] Comment on above: Performed By: #### C BC #### [address] MCH [Entitic mass] by Automa brandyn countOrdered By: Saleem Garcia on 01-17-2024 MCH (RBC) [Entitic mass] 31.7 pg Normal 27.5-35.2 [facility] Comment on above: Performed By: #### C BC #### [address] MCHC Auto (RBC) [Mass/Vol]Or dered By: Saleem Garcia on 01-17-2024 MCHC (RBC) [Mass/Vol] 34.5 g/dL 32.5-35.6 [facility] MCV [Entitic volume] by Auto mated countOrdered By: Saleem Garcia on 01-17-2024 MCV (RBC) [Entitic vol] 91.9 fL Normal 83.5-101 [facility] Comment on above: Performed By: #### C BC #### [place] [address] [place] Neutrophils [#/volume] in Bl ood by Automated countOrdered By: Saleem Garcia on 01-17-2024 Neutrophils (Bld) [#/Vol] 6.0 10*3/uL Normal 1.8-7.7 [facility] Comment on above: Performed By: #### C BC #### [facility] [address] Nucleated erythrocytes [Pres ence] in Blood by Automated countOrdered By: Saleem Garcia on 01-17-2024 Nucleated RBC Auto Ql (Bld) 0.0 /100{WBC} 0-0.5 [facility] Platelet mean volume [Entiti c volume] in Blood by Automated countOrdered By: Saleem Marvin on 01-17-2024 Platelet mean volume (Bld) [Entitic vol] 8.9 fL Normal 6.6-10.1 [facility] Comment on above: Performed By: #### C BC #### [address] Platelets [#/volume] in Bloo d by Automated countOrdered By: Saleem Garcia on 01-17-2024 Platelets (Bld) [#/Vol] 190 10*3/uL Normal 150-450 [facility] Comment on above: Performed By: #### C BC #### [address] Consultation/Specialist Note on 01-03-2024 Consultation/Speciali st Note [id number]#1.00OTGTIF F [facility] Lab - Other Lab Resultson Lab - Other Lab Results [id number]#1.00OTGTIFF [facility] Outside Recordson 12-09-2023 Outside Records [id number]#1.00OTGTI FF [facility] No Panel InformationOrdered By: Harriet Galicia on 12-08-2023 Miscellaneous Pathology Test See comment [facility] Comment on above: See report. Scanned copy available in EMR. Outside Recordson 12-08-2023 Outside Records [id number]#1.00OTGTI [facility] Pathology Request for Lab Co rpon 12-08-2023 Pathology Request for Lab Carmen Normal [facility] Comment on above: Order Comment: PATHO LOGY GI SPEDCIMEN Result Comment: See report. Scanned copy available in EMR. PERFORMED BY: [place] [address] PATHOLOGIST MOLD CHECKER EDUARD MARCANO M.D. Performed By: #### P ATH TO [facility] #### [address] Lab - Other Lab Resultson Lab - Other Lab Results [id number]#1.00OTGTI [facility] Consultation/Specialist Note on 09-19-2023 Consultation/Speciali st Note [id number]#1.[facility] 09-19-2023 Outside Records [id number]#1.[facility] Mihir 09-14-2023 L Specimen: [id number] Received: 09/15/23 Status: FILIBERTO Re Num: [id number] Spec Type: Surgical Subm Dr: Marbin Ceballos MD FACS Tissues: A Soft Tissue/Surgical Margin-Other than Tumor,Mass,Lip or Sho (PERITONEUM) Procedures: HE, Gross/Micro L4 Age/ Patient Sex Location Account Attending Physician Abraham Harry 62/M [facility] [id number] Marbin Ceballos MD FACS SPEC NUM: [id number] RECD: 09/15/23 STATUS: FILIBERTO RE NUM: [id number] TONG: 09/14/[address]: Marbin Ceballos MD FACS ENTERED: 09/15/[address]: William Christie SPEC TYPE: Surgical DEPT: JONATHAN DOTSON ORDERED: MARGARET, Gross/Micro L4 ORDERED: MARGARET, Gross/Micro L4 Pathological Diagnosis Soft tissue, incisional [...] serially sectioned revealing unremarkable fibrous cut surfaces. Pond Scaler sections are submitted in A1. Clinical history: Incisional hernia TW CPT Codes 20043 Specimen: [id number] Received: 09/15/23 Status: FILIBERTO Hardy Num: [id number] Spec Type: Surgical Subm Dr: Marbin Ceballos MD FACS Tissues: A Soft Tissue/Surgical Margin-Other than Tumor,Mass,Lip or Sho (PERITONEUM) Procedures: MARGARET, Gross/Micro L4 Patient: Abraham Harry [id number] (Continued) Signed (signature on file) Ena Jain MD 09/16/232035 Normal [facility] Provider Orderson 09-14-2023 Provider Orders [id number]#1.00OTGTIFF [facility] Provider Orderson 08-25-2023 Provider Orders [id number]#1.00OTGTIF F [facility] Rad - Other Radiology Report on 07-28-2023 Rad - Other Radiology Report [id number]#1.00OTGTIFF [facility] Miscellaneouson 07-20-2023 Miscellaneous [id number]#1.00OTGTIFF [facility] Konstantin White Allergenon 023 Konstantin White Allergen <0.10 Normal Class 0 The On license of [facility] Comment on above: Performed By: #### M ULBERRY WHITE, BIRCH TREE, SORREL SHE, SYCAMORE, KONSTANTIN WHITE #### [facility] , [place] Common Silver All chucky 04-05-2023 [place] Common Silver Aller <0.10 Normal Class 0 [facility] Comment on above: Performed By: #### M ULBERRY WHITE, BIRCH TREE, SORREL SHE, SYCAMORE, KONSTANTIN WHITE #### [facility] , [place], White Allergenon 1 06-06-2022 [place], White Allergen <0.10 Normal Class 0 [facility] Comment on above: Result Comment: Perf ormed at: [place] [facility] [address] [place], [place] [id number] Manager Sign: Christiana Arenas MD, Phone: [phone] PERFORMED BY: [facility] [address] PATHOLOGIST MOLD CHECKER EDUARD MARCANO M.D. Performed By: #### M ULBERRY WHITE, BIRCH TREE, SORREL SHE, SYCAMORE, KONSTANTIN WHITE #### [facility] , [place] Sheep Allergenon 12- [place] Sheep Allergen 0.10 Critically abnormal Class 0/I [facility] Comment on [...] SHE, SYCAMORE, KONSTANTIN WHITE #### [facility] , [place] Allergenon 04-05-20 [place] Allergen 0.15 Critically abnormal Class 0/I [facility] Comment on above: Result Comment: Perf ormed at: [facility] [place] [address] [place] [phone] Manager Sign: Christiana Arenas MD, Phone: [phone] Performed By: #### M ULBERRY WHITE, BIRCH TREE, SORREL SHE, SYCAMORE, KONSTANTIN WHITE #### [facility] , Alternaria alternata IgE Ab [Units/volume] in SerumOrdered By: Chan Taylor on 03-22-2023 A. alternata IgE Qn (S) 0.22 kU/L Class 0/I [facility] Guyanese house dust mite IgE Ab [Units/volume] in SerumOrdered By: Chan Taylor on 03-22-2023 Guyanese house dust mite IgE Qn (S) 17.30 kU/L Class IV [facility] Area 5 Allergens with IgEon 03-22-2023 Alternaria Alternata 0.22 Critically abnormal Class 0/I [facility] Comment on above: Performed By: #### A LLERGEN 5 #### [facility] , Konstantin White Allergen Normal . The On license of [facility] Comment on above: Result Comment: Test not performed. Insufficient specimen to perform or complete analysis. Contacted your facility 03/31/2023 Performed By: #### A LLERGEN 5 #### [facility] , Aspergillis Fumigatus Allergen <0.10 Normal Class 0 [facility] Comment on above: Performed By: #### A LLERGEN 5 #### [facility] , B[place] Grass Allergen 0.15 Critically abnormal Class 0/I [facility] Comment on above: Performed By: #### A LLERGEN 5 #### [facility] , [place] Common Silver Aller Normal . [facility] Comment on above: Result Comment: Test not performed. Insufficient specimen to perform or complete analysis. Contacted your facility 03/31/2023 Performed By: #### A LLERGEN 5 #### [facility] , Cat Hair/Dander Allergen 1.32 Critically abnormal Class II [facility] Comment on above: Performed By: #### A LLERGEN 5 #### [facility] , [place], Mountain Allergen 0.11 Critically abnormal Class 0/I [facility] Comment on above: Performed By: #### A LLERGEN 5 #### [facility] , Cladosporium Herbarum <0.10 Normal Class 0 [facility] Comment on above: Performed By: #### A LLERGEN 5 #### [facility] , CLASS DESCRIPTION Normal . The [facility] Comment on above: Result Comment: [...] A LLERGEN 5 #### [facility] , Cockroach Nepali Allergen 0.33 Critically abnormal Class I [facility] Comment on above: Performed By: #### A LLERGEN 5 #### [facility] , Wagoner Allergen <0.10 Normal Class 0 [facility] Comment on above: Performed By: #### A LLERGEN 5 #### [facility] , D Farinae Mite Allergen 17.30 Critically abnormal Class IV [facility] Comment on above: Performed By: #### A LLERGEN 5 #### [facility] , D Pteronyssinus Allergen 18.40 Critically abnormal Class IV [facility] Comment on above: Performed By: #### A LLERGEN 5 #### [facility] , Dog Hair/Dander Allergen 0.28 Critically abnormal Class 0/I [facility] Comment on above: Performed By: #### A LLERGEN 5 #### [facility] , Elm Tree Allergen <0.10 Normal Class 0 The [facility] Comment on above: Performed By: #### A LLERGEN 5 #### [facility] , Immunoglobulin E 111 Normal 6-495 [facility] Comment on above: Performed By: #### A LLERGEN 5 #### [facility] , Maple/Artesia Allergen 0.13 Critically abnormal Class 0/I [facility] Comment on above: Performed By: #### A LLERGEN 5 #### [facility] , Mouse Urine Allergen <0.10 Normal Class 0 [facility] Comment on above: Result Comment: PERF ORMED BY: [facility] [address] PATHOLOGIST MOLD CHECKER EDUARD MARCANO M.D. Performed By: #### A LLERGEN 5 #### [facility] , [place], White Allergen Normal . [facility] Comment on above: Result Comment: Test not performed. Insufficient specimen to perform or complete analysis. Contacted your facility 03/31/2023 Performed By: #### A LLERGEN 5 #### [facility] , [place] Tree Allergen <0.10 Normal Class 0 The [facility] Comment on above: Performed By: #### A LLERGEN 5 #### [facility] , Pecan/[place]ack[place] Tree Allergen <0.10 Normal Class 0 [facility] Comment on above: Performed By: #### A LLERGEN 5 #### [facility] , Penicillium Chrysogen Mold All <0.10 Normal Class 0 [facility] Comment on above: Performed By: #### A LLERGEN 5 #### [facility] , Pigweed Allergen <0.10 Normal Class 0 [facility] Comment on above: Performed By: #### A LLERGEN 5 #### [facility] , Ragweed Short Allergen 0.10 Critically abnormal Class 0/I [facility] Comment on above: Performed By: #### A LLERGEN 5 #### [facility] , Onida Sheep Allergen Normal . [facility] Comment on above: Result Comment: Test not performed. Insufficient specimen to perform or complete analysis. Contacted your facility 03/31/2023 Performed By: #### A LLERGEN 5 #### [facility] , [place] Allergen Normal . The [facility] Comment on above: Result Comment: Test not performed. Insufficient specimen to perform or complete analysis. Contacted your facility 03/31/2023 Performed By: #### A LLERGEN 5 #### [facility] , Thistle Citizen Of [place] Allergen 0.18 Critically abnormal Class 0/I [facility] Comment on above: Performed By: #### A LLERGEN 5 #### [facility] , Benjy Allergen <0.10 Normal Class 0 [facility] Comment on above: Performed By: #### A LLERGEN 5 #### [facility] , [place] Tree Pollen Allergen 0.11 Critically abnormal Class 0/I [facility] Comment on above: Performed By: #### A LLERGEN 5 #### [facility] , Aspergillus fumigatus IgE Ab [Units/volume] in SerumOrdered By: Chan Taylor on 03-22-2023 A. fumigatus IgE Qn (S) <0.10 kU/L Class 0 [facility] Automated eosinophil %Ordere d By: Chan Taylor on 03-22-2023 Eosinophils/100 WBC (Bld) 3.4 % Normal . [facility] Comment on above: Order Comment: Reaso n for Exam Asthma with COPD Performed By: #### E OS COUNT #### [facility] [address] [place] [address] Automated eosinophil countOr dered By: Chan Taylor on 03-22-2023 Eosinophils (Bld) [#/Vol] 0.3 10*3/uL Normal 0.0-0.45 [facility] Comment on above: Order Comment: Reaso n for Exam Asthma with COPD Result Comment: PERF ORMED BY: [place] [address] PATHOLOGIST MOLD CHECKER EDUARD MARCANO M.D. Performed By: #### E OS COUNT #### [facility] [address] [place] [address] Bermuda grass IgE Ab [Units/ volume] in SerumOrdered By: Chan Taylor on 03-22-2023 B[place] grass IgE Qn (S) 0.15 kU/L Class 0/I [facility] Boxelder IgE Ab [Units/volum e] in SerumOrdered By: Chan Taylor on 03-22-2023 Boxelder IgE Qn (S) 0.13 kU/L Class 0/I [facility] Cladosporium herbarum IgE Ab [Units/volume] in SerumOrdered By: Chan Taylor on 03-22-2023 C. herbarum IgE Qn (S) <0.10 kU/L Class 0 [facility] Cockroach IgE Ab [Units/volu me] in SerumOrdered By: Chan Taylor on 03-22-2023 Cockroach IgE Qn (S) 0.33 kU/L Class I [facility] Wagoner IgE Ab [Units/vol ume] in SerumOrdered By: Chan Taylor on 03-22-2023 Wagoner IgE Qn (S) <0.10 kU/L Class 0 [facility] Dog dander IgE Ab [Units/vol ume] in SerumOrdered By: Chan Taylor on 03-22-2023 Dog dander IgE Qn (S) 0.28 kU/L Class 0/I [facility] Eosinophil Counton WBC (Bld) [#/Vol] 8.6 10*3/uL Normal 4.1-10.5 The On license of [facility] Comment on above: Order Comment: Reaso n for Exam Asthma with COPD Performed By: #### E OS COUNT #### [facility] [address] house dust mite IgE Ab [Units/volume] in SerumOrdered By: Chan Taylor on 03-22-2023 house dust mite IgE Qn (S) 18.40 kU/L Class IV [facility] IgE [Units/volume] in Serum or PlasmaOrdered By: Chan Taylor on 03-22-2023 IgE Qn 111 [IU]/mL 6-495 [facility] Leukocytes [#/volume] correc brandyn for nucleated erythrocytes in Blood by Automated counOrdered By: Chan Taylor on 03-22-2023 WBC corrected for nucl RBC Auto (Bld) [#/Vol] 8.6 10*3/uL 4.1-10.5 [facility] Mountain Juniper IgE Ab [Uni ts/volume] in SerumOrdered By: Chan Taylor on 03-22-2023 Mountain Juniper IgE Qn (S) 0.11 kU/L Class 0/I [facility] Mouse urine proteins IgE Ab [Units/volume] in SerumOrdered By: Chan Taylor on 03-22-2023 Mouse urine proteins IgE Qn (S) <0.10 kU/L Class 0 [facility] No Panel InformationOrdered By: Chan Taylor on 03-22-2023 Allergen Note See comment . [facility] Comment on above: Levels of Specific I gE Class Description of Class ----- < 0.10 0 Negative 0.10 - 0.31 0/I Equivocal/Low 0.32 - 0.55 I Low 0.56 - 1.40 II Moderate 1.41 - 3.90 III High 3.91 - 19.00 IV Very High 19.01 - 100.00 V Very High >100.00 Very High Pecan or [place] Tree IgE Ab [Units/volume] in SerumOrdered By: Chan Taylor on 03-22-2023 Pecan or [place] Tree IgE Qn (S) <0.10 kU/L Class 0 [facility] Saltwort IgE Ab [Units/volum e] in SerumOrdered By: Chan Taylor on 03-22-2023 Saltwort IgE Qn (S) 0.18 kU/L Class 0/I [facility] Serum Guyanese sycamore IgE antibody assay (units/volume)Ordered By: Chan Taylor on 03-22-2023 Guyanese [place] IgE Qn (S) See comment . [facility] Comment on above: Test not performed. Insufficient specimen to perform orcomplete analysis.Contacted your facility 03/31/2023 Serum Penicillium chrysogenu m specific IgE antibody assayOrdered By: Chan Taylor on 03-22-2023 P. notatum IgE Qn (S) <0.10 kU/L Class 0 [facility] Serum cat dander IgG antibod y assay (units/volume)Ordered By: Chan Taylor on 03-22-2023 Cat dander IgG Qn (S) 1.32 kU/L Class II [facility] Serum rough pigweed IgE anti body assay (units/volume)Ordered By: Chan Taylor on 03-22-2023 Rough Pigweed IgE Qn (S) <0.10 kU/L Class 0 [facility] Serum short ragweed specific IgE antibody assayOrdered By: Chan Taylor on 03-22-2023 Common Ragweed IgE Qn (S) 0.10 kU/L Class 0/I [facility] Serum white elm IgG antibody assay (units/volume)Ordered By: Chan Taylor on 03-22-2023 White Elm IgG Qn (S) <0.10 kU/L Class 0 [facility] Sheep Onida IgE Ab [Units/v olume] in SerumOrdered By: Chan Taylor on 03-22-2023 Sheep Onida IgE Qn (S) See comment . [facility] Comment on above: Test not performed. Insufficient specimen to perform orcomplete analysis.Contacted your facility 03/31/2023 Silver Birch IgE Ab [Units/v olume] in SerumOrdered By: Chan Taylor on 03-22-2023 Silver Birch IgE Qn (S) See comment . [facility] Comment on above: Test not performed. Insufficient specimen to perform orcomplete analysis.Contacted your facility 03/31/2023 Benjy IgE Ab [Units/volume ] in SerumOrdered By: Chan Taylor on 03-22-2023 Benjy IgE Qn (S) <0.10 kU/L Class [address] [facility] [place] IgE Ab [Units/volume] in SerumOrdered By: Chan Taylor on 03-22-2023 [place] IgE Qn (S) 0.11 kU/L Class 0/I [facility] White Konstantin IgE Ab [Units/volu me] in SerumOrdered By: Chan Taylor on 03-22-2023 White Konstantin IgE Qn (S) See comment . [facility] Comment on above: Test not performed. Insufficient specimen to perform orcomplete analysis.Contacted your facility 03/31/2023 Republic IgE Ab [Units/volu me] in SerumOrdered By: Chan Taylor on 03-22-2023 [place] IgE Qn (S) <0.10 kU/L Class 0 [facility] White mulberry IgE Ab [Units /volume] in SerumOrdered By: Chan Taylor on 03-22-2023 White mulberry IgE Qn (S) See comment . [facility] Comment on above: Test not performed. Insufficient specimen to perform orcomplete analysis.Contacted your facility 03/31/2023 Cult,Bloodon 01-31-2023 Cult,Blood Specimen Description .BLOOD Special Requests R AC 11ML Culture NO GROWTH 5 DAYS Report Status FINAL 01/30/2023 [facility] Comment on above: Performed By: #### B C #### [facility] [employer] [address] [place] [address] [id number] Manager Sign: Candelario Kramer MD Cult,Blood Specimen Description .BLOOD Special Requests L HAND 2ML Culture NO GROWTH 5 DAYS Report Status FINAL 01/30/2023 [facility] Comment on above: Performed By: #### B C #### [facility] [employer] [address] [place] [address] [phone] Manager Sign: Candelario Kramer MD Office Visit (Cardiology)on 01-27-2023 [...] lose weight.; Status:Complete - Retrospective Authorization; Done: [id number] Hyperlipidemia Renew: Atorvastatin Calcium 80 MG Oral [...] for which she was urgently hospitalized at [facility]. He underwent laparoscopic cholecystectomy and was hospitalized for 5 days. More recently had some more abdominal discomfort and was transferred to [place] where he underwent MRI and HIDA scan. [...] Recorded: 27Jan2023 08:32AM Heart Rate80, L Radial Xzbybsjv218, LUE, Sitting Awmtxngnx24, LUE (more content not included)... Normal [place] Tobacco Screening.on 023 Adult depression screening assessment No [employer] Work Phone: Fall risk assessment a) No falls within the last year [facility] Work Phone: Tobacco use status CPHS b) No [facility] Work Phone: CBC with Auto Differentialon 01-26-2023 Basophils (Bld) [#/Vol] 0.07 10*3/uL [facility] Basophils/100 WBC (Bld) 1 % 0 - 2 % [facility] Eosinophils (Bld) [#/Vol] 0.43 10*3/uL [facility] [...] (Bld) 1 % High 0 [facility] Interpretation and review of laboratory results Abnormal [facility] Lymphocytes/100 WBC (Bld) [...] vol] 10.7 fL 8.1 - 13.5 fL [facility] Platelets (Bld) [#/Vol] 249 10*3/uL [facility] RBC (Bld) [#/Vol] 3.38 10*6/uL Low 4.21 - 5.77 m/uL [facility] Segmented neutrophils/100 WBC (Bld) 4.77 % [facility] WBC other (Bld) [#/Vol] 7.1 [facility] CBC with Diffon 01-26-2023 Abs. Basophil 0.07 k/uL Normal 0.00-0.20 [facility] Comment on above: Performed By: #### P T, CP, CDP #### [place] [address] Manager Sign: Candelario Kramer MD Abs.Imm.Granulocyte 0.05 k/uL Normal 0.00-0.30 [facility] Comment on above: Performed By: #### P T, CP, CDP #### [place] [address] Manager Sign: Candelario Kramer MD Abs.Neutrophil (Seg) 4.77 k/uL Normal 1.50-8.10 [facility] Comment on above: Performed By: #### P T, CP, CDP #### [place] [address] Manager Sign: Cnadelario Kramer MD Basophils/100 WBC (Bld) 1 % Normal 0-2 [facility] Comment on above: Performed By: #### P T, CP, CDP #### [place] [address] Manager Sign: Candelario Kramer MD Eosinophils (Bld) [#/Vol] 0.43 10*3/uL Normal 0.00-0.44 [facility] Comment on above: Performed By: #### P T, CP, CDP #### [address] [address] Manager Sign: Candelario Kramer MD Eosinophils/100 WBC (Bld) 6 % High 1-4 [facility] Comment on above: Performed By: #### P T, CP, CDP #### [place] [address] Manager Sign: Candelario Kramer MD Erythrocyte distribution width (RBC) [Ratio] 13.6 % Normal 11.8-14.4 [facility] Comment on above: Performed By: #### P T, CP, CDP #### [place] [address] Manager Sign: Candelario Kramer MD Hematocrit (Bld) [Volume fraction] 31.6 % Low 40.7-50.3 [facility] Comment on above: Performed By: #### P T, CP, CDP #### [place] [address] Manager Sign: Candelario Kramer MD Hemoglobin (Bld) [Mass/Vol] 10.3 g/dL Low 13.0-17.0 [facility] Comment on above: Performed By: #### P T, CP, CDP #### [place] [address] Manager Sign: Candelario Kramer MD Immature granulocytes/100 WBC (Bld) 1 % High 0 [facility] Comment on above: Performed By: #### P T, CP, CDP #### [facility] [employer] [facility] [employer] [address] [place] [address] Manager Sign: Candelario Kramer MD Lymphocytes (Bld) [#/Vol] 1.33 10*3/uL Normal 1.10-3.70 [facility] Comment on above: Performed By: #### P T, CP, CDP #### [address] [address] Manager Sign: Candelario Kramer MD Lymphocytes/100 WBC (Bld) 19 % Low 24-43 [facility] Comment on above: Performed By: #### P T, CP, CDP #### [address] [address] Manager Sign: Candelario Kramer MD MCH (RBC) [Entitic mass] 30.5 pg Normal 25.2-33.5 [facility] Comment on above: Performed By: #### P T, CP, CDP #### [address] [address] Manager Sign: Candelario Kramer MD MCHC (RBC) [Mass/Vol] 32.6 g/dL Normal 28.4-34.8 [facility] Comment on above: Performed By: #### P T, CP, CDP #### [address] [address] Manager Sign: Candelario Kramer MD MCV (RBC) [Entitic vol] 93.5 fL Normal 82.6-102.9 [facility] Comment on above: Performed By: #### P T, CP, CDP #### [address] [address] Manager Sign: Candelario Kramer MD Monocytes (Bld) [#/Vol] 0.41 10*3/uL Normal 0.10-1.20 [facility] Comment on above: Performed By: #### P T, CP, CDP #### [address] [address] Manager Sign: Candelario Kramer MD Monocytes/100 WBC (Bld) 6 % Normal 3-12 [facility] Comment on above: Performed By: #### P T, CP, CDP #### [address] [address] Manager Sign: Candelario Kramer MD Neutrophil (Seg) 67 % High 36-65 [facility] Comment on above: Performed By: #### P T, CP, CDP #### [address] [address] Manager Sign: Candelario Kramer MD NRBC Automated 0.0 per 100 WBC Normal 0.0 [facility] Comment on above: Performed By: #### P T, CP, CDP #### [address] [address] Manager Sign: Candelario Kramer MD Platelet mean volume (Bld) [Entitic vol] 10.7 fL Normal 8.1-13.5 [facility] Comment on above: Performed By: #### P T, CP, CDP #### [address] [address] Manager Sign: Candelario Kramer MD Platelets (Bld) [#/Vol] 249 10*3/uL Normal 138-453 [facility] Comment on above: Performed By: #### P T, CP, CDP #### [address] [address] Manager Sign: Candelario Kramer MD RBC (Bld) [#/Vol] 3.38 10*6/uL Low 4.21-5.77 [facility] Comment on above: Performed By: #### P T, CP, CDP #### [address] [address] Manager Sign: Candelario Kramer MD WBC (Bld) [#/Vol] 7.1 10*3/uL Normal 3.5-11.3 [facility] Comment on above: Performed By: #### P T, CP, CDP #### [address] [address] Manager Sign: Candelario Kramer MD Comp Metabolic Profon 2022 Albumin [Mass/Vol] 3.6 g/dL Normal 3.5-5.2 [facility] Comment on above: Performed By: #### P T, CP, CDP #### [address] [address] Manager Sign: Candelario Kramer MD Albumin/Glob Ratio 1.5 Normal 1.0-2.5 [facility] Comment on above: Performed By: #### P T, CP, CDP #### [facility] [address] [place] [address] Manager Sign: Candelario Kramer MD Alkaline Phos 209 U/L High 40-129 [facility] Comment on above: Performed By: #### P T, CP, CDP #### [address] [address] Manager Sign: Candelario Kramer MD ALT [Catalytic activity/Vol] 87 U/L High 5-41 [facility] Comment on above: Performed By: #### P T CP, CDP #### [address] [address] Manager Sign: Candelario Kramer MD Anion gap [Moles/Vol] 11 mmol/L Normal 9-17 [facility] Comment on above: Performed By: #### P T, CP, CDP #### [facility] [employer] [employer] [address] [place] [address] Manager Sign: Candelario Kramer MD AST [Catalytic activity/Vol] 93 U/L High <40 [facility] Comment on above: Performed By: #### P T, CP, CDP #### [facility] [address] [place] [address] Manager Sign: Candelario Kramer MD Bilirubin [Mass/Vol] 0.9 mg/dL Normal 0.3-1.2 [facility] Comment on above: Performed By: #### P T, CP, CDP #### [address] [address] Manager Sign: Candelario Kramer MD Calcium [Mass/Vol] 8.6 mg/dL Normal 8.6-10.4 [facility] Comment on above: Performed By: #### P T, CP, CDP #### [address] [address] Manager Sign: Candelario Kramer MD Chloride [Moles/Vol] 105 mmol/L Normal 98-107 [facility] Comment on above: Performed By: #### P T, CP, CDP #### [address] [address] Manager Sign: Candelario Kramer MD CO2 [Moles/Vol] 22 mmol/L Normal 20-31 [facility] Comment on above: Performed By: #### P T, CP, CDP #### [address] [address] Manager Sign: Candelario Kramer MD Creatinine [Mass/Vol] 0.7 mg/dL Normal 0.7-1.2 [facility] Comment on above: Performed By: #### P T, CP, CDP #### [address] [address] Manager Sign: Candelario Kramer MD GFR/1.73 sq M.predicted among non-blacks MDRD (S/P/Bld) [Vol rate/Area] mL/min/{1.73_m2} Normal >60 [facility] Comment on above: Result Comment: These [...] By: #### P T, CP, CDP #### [facility] [address] [place] [address] Manager Sign: Candelario Kramer MD Glucose [Mass/Vol] 90 mg/dL Normal 70-99 [facility] Comment on above: Performed By: #### P T, CP, CDP #### [facility] [employer] [address] [place] [address] Manager Sign: Candelario Kramer MD Potassium [Moles/Vol] 3.8 mmol/L Normal 3.7-5.3 [facility] Comment on above: Performed By: #### P T, CP, CDP #### [facility] [address] [place] [address] Manager Sign: Candelario Kramer MD Protein [Mass/Vol] 6.0 g/dL Low 6.4-8.3 [facility] Comment on above: Performed By: #### P T, CP, CDP #### [facility] [address] [place] [address] Manager Sign: Candelario Kramer MD Sodium [Moles/Vol] 138 mmol/L Normal 135-144 [facility] Comment on above: Performed By: #### P T, CP, CDP #### [facility] [address] [place] [address] Manager Sign: Candelario Kramer MD Urea nitrogen [Mass/Vol] 14 mg/dL Normal 8-23 [facility] Comment on above: Performed By: #### P T, CP, CDP #### [facility] [employer] [address] [place] [address] Manager Sign: Candelario Kramer MD [facility] Metabolic Pane [facility] 01-26-2023 Albumin [Mass/Vol] 3.6 g/dL 3.5 - 5.2 g/dL [facility] Albumin/Globulin [Mass ratio] 1.5 {ratio} 1.0 - 2.5 [facility] ALP [Catalytic activity/Vol] 209 U/L High 40 - 129 U/L [facility] ALT [Catalytic activity/Vol] 87 U/L High 5 - 41 U/L [facility] Anion gap [Moles/Vol] 11 mmol/L 9 - 17 mmol/L [facility] AST [Catalytic activity/Vol] 93 U/L High NINF - 40 U/L [facility] Bilirubin [Mass/Vol] 0.9 mg/dL 0.3 - 1 .2 mg/dL [facility] Calcium [Mass/Vol] 8.6 mg/dL 8.6 - 10. 4 mg/dL [facility] Chloride [Moles/Vol] 105 mmol/L 98 - 10 7 mmol/L [facility] CO2 [Moles/Vol] 22 mmol/L 20 - 31 mmol/L [facility] Creatinine [Mass/Vol] 0.7 mg/dL 0.7 - 1.2 mg/dL [facility] GFR/1.73 sq M.predicted MDRD (S/P/Bld) [Vol rate/Area] - PINF [facility] Comment on above: These results [...] [Mass/Vol] 90 mg/dL 70 - 99 mg/dL [facility] Interpretation and review of laboratory results Abnormal [facility] Potassium [Moles/Vol] 3.8 mmol/L 3.7 - 5.3 mmol/L [facility] Protein [Mass/Vol] 6.0 g/dL Low 6.4 - 8.3 g/dL [facility] Sodium [Moles/Vol] 138 mmol/L 135 - 144 mmol/L [facility] Urea nitrogen [Mass/Vol] 14 mg/dL 8 - 23 mg/dL [facility] MRI ABDOMEN WO CONTRAST MRCP on 01-26-2023 [...] Rey Charles MD 01/26/23 Final result Normal [facility] Surgically absent gallbladder. No biliary ductal [...] bowel distention. Scattered colonic diverticula are seen. [facility] Rey Charles MD - 01/26/2023 EXAMINATION: MRI [...] of phase images, compatible with fatty infiltration [facility] Radiology Study observation (narrative) [facility] MRI ABDOMEN WO CONTRAST MRCP Ordered By: Rey Charles on 01-26-2023 [facility] Work Phone: NM HEPATOBILIARYon 3 NM [...] Saurabh Paul MD 01/26/23 Final result Normal [facility] No convincing scintigraphic evidence for a bile leak. [facility] RIS CONSOLIDATED EXAMINATION: NUCLEAR MEDICINE HEPATOBILIARY SCINTIGRAPHY [...] pericolic gutter to suggest a bile leak. [facility] Saurabh Hanks MD - 01/26/2023 EXAMINATION: NUCLEAR [...] convincing scintigraphic evidence for a bile leak. [facility] Radiology Study observation (narrative) [facility] NM HEPATOBILIARYOrdered By: Saurabh Paul on 01-26-2023 [facility] Work Phone: PTon 01-26-2023 INR Coag (PPP) [Relative time] 1.0 {INR} Normal [facility] Comment on above: Result Comment: Therapeutic Range: Moderate Anticoagulant Intensity: INR = 2.0-3.0 High Anticoagulant Intensity: INR = 2.5-3.5 Performed By: #### Talib Machuca CP, CDP #### [employer] [address] [place] [address] Manager Sign: Candelario Kramer MD PT Coag (PPP) [Time] 13.1 s Normal 11.7-14.9 [facility] Comment on above: Performed By: #### P T, CP, CDP #### [employer] [address] [place] [address] Manager Sign: Candelario Kramer MD Protime-INRon 01-26-2023 INR Coag (PPP) [Relative time] 1.0 {INR} [facility] Comment on above: Therapeutic Range: Moderate Anticoagulant Intensity: INR = 2.0-3.0 High Anticoagulant Intensity: INR = 2.5-3.5 PT Coag (PPP) [Time] 13.1 s [facility] CBC with Auto Differentialon 01-25-2023 Basophils (Bld) [#/Vol] 0.05 10*3/uL [facility] Basophils/100 WBC (Bld) 1 % 0 - 2 % [facility] Eosinophils (Bld) [#/Vol] 0.35 10*3/uL [facility] Eosinophils/100 WBC (Bld) 4 % 1 - 4 % [facility] Erythrocyte distribution width (RBC) [Ratio] 13.8 % 11.8 - 14.4 % [facility] Hematocrit (Bld) [Volume fraction] 32.9 % Low 40.7 - 50.3 % [facility] Hemoglobin (Bld) [Mass/Vol] 10.6 g/dL Low 13.0 - 17.0 g/dL [facility] Immature granulocytes (Bld) [#/Vol] 0.04 10*3/uL [facility] Immature granulocytes/100 WBC (Bld) 1 % High 0 [facility] Interpretation and review of laboratory results Abnormal [facility] Lymphocytes/100 WBC (Bld) 19 % Low 24 - 43 % [facility] Lymphocytes/100 WBC (Bld) 1.50 % [facility] MCH (RBC) [Entitic mass] 30.0 pg 25.2 - 33.5 pg [facility] MCHC (RBC) [Mass/Vol] 32.2 g/dL 28.4 - 34.8 g/dL [facility] MCV (RBC) [Entitic vol] 93.2 fL 82.6 - 102.9 fL [facility] Monocytes/100 WBC (Bld) 6 % 3 - 12 % [facility] Monocytes/100 WBC (Bld) 0.51 % [facility] Neutrophils/100 WBC (Bld) 69 % High 36 - 65 % [facility] Nucleated RBC/100 WBC (Bld) [Ratio] 0.0 % 0.0 per 100 WBC [facility] Platelet mean volume (Bld) [Entitic vol] 10.4 fL 8.1 - 13.5 fL [facility] Platelets (Bld) [#/Vol] 300 10*3/uL [facility] RBC (Bld) [#/Vol] 3.53 10*6/uL Low 4.21 - 5.77 m/uL [facility] Segmented neutrophils/100 WBC (Bld) 5.55 % [facility] [address] WBC other (Bld) [#/Vol] 8.0 [facility] CBC with Diffon 01-25-2023 Abs. Basophil 0.05 k/uL Normal 0.00-0.20 [facility] Comment on above: Performed By: #### C DP, CP, LACTIC #### [place] [address] Manager Sign: Candelario Kramer MD Abs.Imm.Granulocyte 0.04 k/uL Normal 0.00-0.30 [facility] Comment on above: Performed By: #### C DP, CP, LACTIC #### [facility] [employer] [address] [place] [address] Manager Sign: Candelario Kramer MD Abs.Neutrophil (Seg) 5.55 k/uL Normal 1.50-8.10 [facility] Comment on above: Performed By: #### C DP, CP, LACTIC #### [facility] [employer] [address] [place] [address] Manager Sign: Candelario Kramer MD Basophils/100 WBC (Bld) 1 % Normal 0-2 [facility] Comment on above: Performed By: #### C DP, CP, LACTIC #### [address] [address] Manager Sign: Candelario Kramer MD Eosinophils (Bld) [#/Vol] 0.35 10*3/uL Normal 0.00-0.44 [facility] Comment on above: Performed By: #### C DP, CP, LACTIC #### [address] [address] Manager Sign: Candelario Kramer MD Eosinophils/100 WBC (Bld) 4 % Normal 1-4 [facility] Comment on above: Performed By: #### C DP, CP, LACTIC #### [address] [address] Manager Sign: Candelario Kramer MD Erythrocyte distribution width (RBC) [Ratio] 13.8 % Normal 11.8-14.4 [facility] Comment on above: Performed By: #### C DP, CP, LACTIC #### [address] [address] Manager Sign: Candelario Kramer MD Hematocrit (Bld) [Volume fraction] 32.9 % Low 40.7-50.3 [facility] Comment on above: Performed By: #### C DP, CP, LACTIC #### [address] [address] Manager Sign: Candelario Kramer MD Hemoglobin (Bld) [Mass/Vol] 10.6 g/dL Low 13.0-17.0 [facility] Comment on above: Performed By: #### C DP, CP, LACTIC #### [address] [address] Manager Sign: Candelario Kramer MD Immature granulocytes/100 WBC (Bld) 1 % High 0 [facility] Comment on above: Performed By: #### C DP, CP, LACTIC #### [address] [address] Manager Sign: Candelario Kramer MD Lymphocytes (Bld) [#/Vol] 1.50 10*3/uL Normal 1.10-3.70 [facility] Comment on above: Performed By: #### C DP, CP, LACTIC #### [address] [address] Manager Sign: Candelario Kramer MD Lymphocytes/100 WBC (Bld) 19 % Low 24-43 [facility] Comment on above: Performed By: #### C DP, CP, LACTIC #### [place] [address] Manager Sign: Candelario Kramer MD MCH (RBC) [Entitic mass] 30.0 pg Normal 25.2-33.5 [facility] Comment on above: Performed By: #### C DP, CP, LACTIC #### [place] [address] Manager Sign: Candelario Kramer MD MCHC (RBC) [Mass/Vol] 32.2 g/dL Normal 28.4-34.8 [facility] Comment on above: Performed By: #### C DP, CP, LACTIC #### [place] [address] Manager Sign: Candelario Kramer MD MCV (RBC) [Entitic vol] 93.2 fL Normal 82.6-102.9 [facility] Comment on above: Performed By: #### C DP, CP, LACTIC #### [place] [address] Manager Sign: Candelario Kramer MD Monocytes (Bld) [#/Vol] 0.51 10*3/uL Normal 0.10-1.20 [facility] Comment on above: Performed By: #### C DP, CP, LACTIC #### [place] [address] Manager Sign: Candelario Kramer MD Monocytes/100 WBC (Bld) 6 % Normal 3-12 [facility] Comment on above: Performed By: #### C DP, CP, LACTIC #### [address] [address] Manager Sign: Candelario Kramer MD Neutrophil (Seg) 69 % High 36-65 [facility] Comment on above: Performed By: #### C DP, CP, LACTIC #### [address] [address] Manager Sign: Candelario Kramer MD NRBC Automated 0.0 per 100 WBC Normal 0.0 [facility] Comment on above: Performed By: #### C DP, CP, LACTIC #### [address] [address] Manager Sign: Candelario Kramer MD Platelet mean volume (Bld) [Entitic vol] 10.4 fL Normal 8.1-13.5 [facility] Comment on above: Performed By: #### C DP, CP, LACTIC #### [address] [address] Manager Sign: Candelario Kramer MD Platelets (Bld) [#/Vol] 300 10*3/uL Normal 138-453 [facility] Comment on above: Performed By: #### C DP, CP, LACTIC #### [address] [address] Manager Sign: Candelario Kramer MD RBC (Bld) [#/Vol] 3.53 10*6/uL Low 4.21-5.77 [facility] Comment on above: Performed By: #### C DP, CP, LACTIC #### [address] [address] Manager Sign: Candelario Kramer MD WBC (Bld) [#/Vol] 8.0 10*3/uL Normal 3.5-11.3 [facility] Comment on above: Performed By: #### C DP, CP, LACTIC #### [address] [address] Manager Sign: Candelario Kramer MD Comp Metabolic Profon 2022 Albumin [Mass/Vol] 3.8 g/dL Normal 3.5-5.2 [facility] Comment on above: Performed By: #### C DP, CP, LACTIC #### [address] [address] Manager Sign: Candelario Kramer MD Albumin/Glob Ratio 1.5 Normal 1.0-2.5 [facility] Comment on above: Performed By: #### C DP, CP, LACTIC #### [address] [address] Manager Sign: Candelario Kramer MD Alkaline Phos 229 U/L High 40-129 [facility] Comment on above: Performed By: #### C DP, CP, LACTIC #### [address] [address] Manager Sign: Candelario Kramer MD ALT [Catalytic activity/Vol] 114 U/L High 5-41 [facility] Comment on above: Performed By: #### C DP, CP, LACTIC #### [address] [address] Manager Sign: Candelario Kramer MD Anion gap [Moles/Vol] 11 mmol/L Normal 9-17 [facility] Comment on above: Performed By: #### C DP, CP, LACTIC #### [facility] [employer] [address] [place] [address] Manager Sign: Candelario Kramer MD AST [Catalytic activity/Vol] 189 U/L High <40 [facility] Comment on above: Performed By: #### C DP, CP, LACTIC #### [address] [address] Manager Sign: Candelario Kramer MD Bilirubin [Mass/Vol] 0.8 mg/dL Normal 0.3-1.2 [facility] Comment on above: Performed By: #### C DP, CP, LACTIC #### [address] [address] Manager Sign: Candelario Kramer MD Calcium [Mass/Vol] 8.7 mg/dL Normal 8.6-10.4 [facility] Comment on above: Performed By: #### C DP, CP, LACTIC #### [address] [address] Manager Sign: Candelario Kramer MD Chloride [Moles/Vol] 105 mmol/L Normal 98-107 [facility] Comment on above: Performed By: #### C DP, CP, LACTIC #### [address] [address] Manager Sign: Candelario Kramer MD CO2 [Moles/Vol] 23 mmol/L Normal 20-31 [facility] Comment on above: Performed By: #### C DP, CP, LACTIC #### [facility] [employer] [address] [place] [address] Manager Sign: Candelario Kramer MD Creatinine [Mass/Vol] 0.8 mg/dL Normal 0.7-1.2 [facility] Comment on above: Performed By: #### C DP, CP, LACTIC #### [address] [address] Manager Sign: Candelario Kramer MD GFR/1.73 sq M.predicted among non-blacks MDRD (S/P/Bld) [Vol rate/Area] mL/min/{1.73_m2} Normal >60 [facility] Comment on above: Result Comment: These [...] By: #### C DP, CP, LACTIC #### [address] [address] Manager Sign: Candelario Kramer MD Glucose [Mass/Vol] 88 mg/dL Normal 70-99 [facility] Comment on above: Performed By: #### C DP, CP, LACTIC #### [address] [address] Manager Sign: Candelario Kramer MD Potassium [Moles/Vol] 4.3 mmol/L Normal 3.7-5.3 [facility] Comment on above: Performed By: #### C DP, CP, LACTIC #### [address] [address] Manager Sign: Candelario Kramer MD Protein [Mass/Vol] 6.3 g/dL Low 6.4-8.3 [facility] Comment on above: Performed By: #### C DP, CP, LACTIC #### [address] [address] Manager Sign: Candelario Kramer MD Sodium [Moles/Vol] 139 mmol/L Normal 135-144 [facility] Comment on above: Performed By: #### C DP, CP, LACTIC #### [address] [address] Manager Sign: Candelario Kramer MD Urea nitrogen [Mass/Vol] 15 mg/dL Normal 8-23 [facility] Comment on above: Performed By: #### C DP, CP, LACTIC #### [address] [address] Manager Sign: Candelario Kramer MD [facility] 01-25-2023 Albumin [Mass/Vol] 3.8 g/dL 3.5 - 5.2 g/dL [facility] Albumin/Globulin [Mass ratio] 1.5 {ratio} 1.0 - 2.5 [facility] ALP [Catalytic activity/Vol] 229 U/L High 40 - 129 U/L [facility] ALT [Catalytic activity/Vol] 114 U/L High 5 - 41 U/L [facility] Anion gap [Moles/Vol] 11 mmol/L 9 - 17 mmol/L [facility] AST [Catalytic activity/Vol] 189 U/L High NINF - 40 U/L [facility] Bilirubin [Mass/Vol] 0.8 mg/dL 0.3 - 1 .2 mg/dL [facility] Calcium [Mass/Vol] 8.7 mg/dL 8.6 - 10. 4 mg/dL [facility] Chloride [Moles/Vol] 105 mmol/L 98 - 10 7 mmol/L [facility] CO2 [Moles/Vol] 23 mmol/L 20 - 31 mmol/L [facility] Creatinine [Mass/Vol] 0.8 mg/dL 0.7 - 1.2 mg/dL [facility] GFR/1.73 sq M.predicted MDRD (S/P/Bld) [Vol rate/Area] - PINF [facility] Comment on above: These results [...] [Mass/Vol] 88 mg/dL 70 - 99 mg/dL [facility] Interpretation and review of laboratory results Abnormal [facility] Potassium [Moles/Vol] 4.3 mmol/L 3.7 - 5.3 mmol/L [facility] Protein [Mass/Vol] 6.3 g/dL Low 6.4 - 8.3 g/dL [facility] Sodium [Moles/Vol] 139 mmol/L 135 - 144 mmol/L [facility] Urea nitrogen [Mass/Vol] 15 mg/dL 8 - 23 mg/dL [facility] Lactic Acidon 01-25-2023 Lactic Acid,Whole Bl 1.7 mmol/L Normal 0.7-2.1 [facility] Comment on above: Performed By: #### C DP, CP, LACTIC #### [facility] [address] [place] [address] Manager Sign: Candelario Kramer MD Lactic Acid, Whole Blood 1.7 mmol/L 0.7 - 2.1 mmol/L [facility] Cardiac Stress Teston 2022 Cardiac Stress Test [address], [address] [place] [address] Exercise Stress Test Patient Name: ABRAHAM Garzon Ordering Physician: [id number] HARRY MD Study Date: 12/21/2022 Reading Physician: Tray Baca MD MRN/PID: [id number] Supervising [id number] Baca Physician: Accession/Order#: [id number] Referring Physician: REY BACA Date of : 1960 PCP: [id number] Cain MD Gender: M Fellow: Height: 180.34 cm Nurse: Magali Parks RN Weight: 116.58 kg Extras Casting Director: CALLIE BSA: 2.35 m2 Technologist: BMI: 35.84 kg/m2 Additional Staff: Age: 62 years cc report to: Patient Location: cc report to: [id number] Baca MD Study Type: Cardiac Stress Test Diagnosis/ICD: I25.10-Atherosclerotic heart disease; [id number] (primary) hypertension; R07.9-Chest pain, unspecified Indication: Hypertension Procedure/CPT: Stress Test Interpretation-[id number]; Stress Test Supervision-[id number] Falls Risk: Low: Patient has low risk [...] 0.4 mm depression. 3. Normal Stress Test. [id number] Rey Baca MD Electronically signed on 12/23/2022 at 3:40:53 PM Final Normal [facility] Cardiac Stress Test [facility] [address] DO Work Phone: Office [...] Test; Status:Hold For - Scheduling,Retrospective Authorization; Requested for:[id number]; Class 2 obesity with body mass index (BMI) of 36.0 to 36.9 in adult Healthy Weight Tips; Status:Complete - Retrospective Authorization; Done: [id number] Some eating tips that can help you lose weight.; Status:Complete - Retrospective Authorization; Done: [id number] SocHx: Former smoker Tobacco Use Screening; Status:Complete; Done: [id number] Patient Instructions Please bring all medicines, vitamins, [...] coronary angiogram 7 years ago in [facility] where he had moderate disease treated medically. [...] negative for complaint. Vitals Vital Signs Recorded: [id number] 09:21AM Heart Rate84, L Radial Mfwphovr552, LUE, Sitting Gdncovcil42, LUE, Sitting Height5 ft 10.5 in Tdizgr323 lb BMI Moxyoauowt39.35 kg/m2 BSA Calculated2.33 Tobacco Useb) No PHQ-2 [...] auscultation. Card (more content not included)... Normal [place] Office Visit (Cardiology)on 04-15-2022 Follow-up visit Diagnoses/Problems [...] Weight Tips; Status:Complete - Retrospective Authorization; Done: [id number] Some eating tips that can help you lose weight.; Status:Complete - Retrospective Authorization; Done: [id number] Hyperlipidemia Renew: Atorvastatin Calcium 80 MG Oral Tablet; TAKE 1 TABLET BY MOUTH EVERY DAY SocHx: Former smoker Tobacco Use Screening; Status:Complete; Done: [id number] Tobacco Use Screening; Status:Complete; Done: [id number] Patient Instructions Please bring all medicines, vitamins, [...] negative for complaint. Vitals Vital Signs Recorded: [id number] 03:07PM Heart Rate96, R Radial Xsgiwuvg714, LUE, Sitting Kfjnofman37, LUE, Sitting Height5 ft 10.5 in Oysoqx038 lb 3.2 oz BMI Ryzsslsgrb84.8 kg/m2 BSA Calculated2.37 Tobacco Useb) No Physical Exam Constitutional: alert and in no acute distress. Eyes: no erythema, swelling or discharge from the eye . Neck: neck is supple, symmetric, trachea midline, no masses and no thyromegaly . Pulmonary: no increased work of breathing or signs of respiratory distress and lungs clear to auscultation. Cardiovascula (more content not included)... Normal [facility] Tobacco Screening.on 022 Tobacco use status CPHS b) No -[facility] y 89 DO Work Phone: CBC AUTO DIFFon 02-18-2022 BASO # 0.1 103/ul Normal 0.0-0.1 [facility] Comment on above: Performed By: #### C BC #### [facility] [address] [place] [address] Dr. Demetria Jain Basophils/100 WBC (Bld) 0.7 % Normal 0.2-2.0 [facility] Comment on above: Performed By: #### C BC #### [facility] [address] [place] [address] Dr. Demetria Jain EO # 0.2 103/ul Normal 0.0-0.7 [facility] Comment on above: Performed By: #### C BC #### [facility] [address] [place] [address] Dr. Demetria Jain Eosinophils/100 WBC (Bld) 2.4 % Normal 0.9-7.0 [facility] Comment on above: Performed By: #### C BC #### [facility] [address] [place] [address] Dr. Demetria Jain Erythrocyte distribution width (RBC) [Ratio] 12.6 % Normal 11.0-15.0 [facility] Comment on above: Performed By: #### C BC #### [facility] [address] [place] [address] Dr. Demetria Jain Hematocrit (Bld) [Volume fraction] 38.1 % Critically low 42.0-54.0 [facility] Comment on above: Performed By: #### C BC #### [facility] [address] [place] [address] Dr. Demetria Jain Hemoglobin (Bld) [Mass/Vol] 12.5 g/dL Critically low 14.0-18.0 [facility] Comment on above: Performed By: #### C BC #### [facility] [address] [place] [address] Dr. Demetria Jain IG # 0.04 10e3/ul Critically high 0.00-0.03 [facility] Comment on above: Performed By: #### C BC #### [facility] [address] [place] [address] Dr. Demetria Jain IG % 0.4 % Normal 0.0-0.5 [facility] Comment on above: Performed By: #### C BC #### [facility] [address] [place] [address] Dr. Demetria Jain LYMPH # 1.4 103/ul Normal 1.2-3.8 [facility] Comment on above: Performed By: #### C BC #### [facility] [address] [place] [address] Dr. Demetria Jain Lymphocytes/100 WBC (Bld) 13.6 % Critically low 20.5-60.0 [facility] Comment on above: Performed By: #### C BC #### [facility] [address] [place] [address] Dr. Demetria Jain MANUAL DIFF REQ NO Normal [facility] Comment on above: Performed By: #### C BC #### [facility] [address] [place] [address] Dr. Demetria Jain MCH (RBC) [Entitic mass] 30.2 pg Normal 25.9-34.0 [facility] Comment on above: Performed By: #### C BC #### [facility] [address] [place] [address] Dr. Demetria Jain MCHC (RBC) [Mass/Vol] 32.8 g/dL Normal 29.9-35.2 [facility] Comment on above: Performed By: #### C BC #### [facility] [address] [place] [address] Dr. Demetria Jain MCV (RBC) [Entitic vol] 92.0 fL Normal 80.0-94.0 [facility] Comment on above: Performed By: #### C BC #### [facility] [address] [place] [address] Dr. Demetria Jain MONO # 0.5 103/ul Normal 0.3-0.8 [facility] Comment on above: Performed By: #### C BC #### [facility] [address] [place] [address] Dr. Demetria Jain Monocytes/100 WBC (Bld) 4.5 % Normal 1.7-12.0 [facility] Comment on above: Performed By: #### C BC #### [facility] [address] [place] [address] Dr. Demetria Jain NEUT # 7.9 103/ul Critically high 1.4-6.5 [facility] Comment on above: Performed By: #### C BC #### [facility] [address] [place] [address] Dr. Demetria Jain Neutrophils/100 WBC (Bld) 78.4 % Critically high 43.0-75.0 [facility] Comment on above: Performed By: #### C BC #### [facility] [address] [place] [address] Dr. Demetria Jain Platelet mean volume (Bld) [Entitic vol] 11.0 fL Normal 9.5-13.5 [facility] Comment on above: Performed By: #### C BC #### [facility] [address] [place] [address] Dr. Demetria Jain PLT 243 103/ul Normal 150-450 [facility] Comment on above: Performed By: #### C BC #### [facility] [address] [place] [address] Dr. Demetria Jain RBC 4.14 106/ul Critically low 4.70-6.10 [facility] Comment on above: Performed By: #### C BC #### [facility] [address] [place] [address] Dr. Demetria Jain WBC 10.0 103/ul Normal 4.0-11.0 [facility] Comment on above: Performed By: #### C BC #### [facility] [address] [address] [address] Demetria Jain LIPID PROFILEon 02-18-2022 CHOL-HDL RATIO NORM SEE BELOW Normal [facility] Comment on above: Result Comment: 3.3 - 4.4 LOW RISK 4.4 - 7.1 AVERAGE RISK 7.1 - 11.0 MODERATE RISK >11.0 HIGH RISK Performed By: #### C MP, LIPID #### [facility] [address] [address] [address] Demetria Jain Cholesterol [Mass/Vol] 171 mg/dL Normal <=200 [facility] Comment on above: Performed By: #### C MP, LIPID #### [facility] [address] [address] [address] Demetria Jain Cholesterol in HDL [Mass/Vol] 78 mg/dL Critically high 40-60 [facility] Comment on above: Performed By: #### C MP, LIPID #### [facility] [address] [address] [address] Demetria Jain Cholesterol in LDL [Mass/Vol] 83.6 mg/dL Normal [facility] Comment on above: Performed By: #### C MP, LIPID #### [facility] [address] [address] [address] Demetria Jain Cholesterol.total/Cho lesterol in HDL [Mass ratio] 2.2 {ratio} Normal [facility] Comment on above: Performed By: #### C MP, LIPID #### [facility] [id number] Demetria Jain HDL NORMAL > or = 60 mg/dl - LO W CARDIOVASCULAR RISK <40 mg/dl - HIGH CARDIOVASCULAR RISK Normal [facility] Comment on above: Performed By: #### C MP, LIPID #### [facility] [address] [address] [address] Demetria Jain LDL CALC NORMAL SEE BELOW Normal [facility] Comment on above: Result Comment: <100 mg/dl OPTIMAL 100 - 129 mg/dl NEAR OR ABOVE OPTIMAL 130 - 159 mg/dl BORDERLINE HIGH 160 - 189 mg/dl HIGH >190 mg/dl VERY HIGH Performed By: #### C MP, LIPID #### [facility] [address] [place] [address] Dr. Demetria Jain Triglyceride [Mass/Vol] 47 mg/dL Normal <=150 [facility] Comment on above: Performed By: #### C MP, LIPID #### [facility] [address] [place] [address] Dr. Demetria Jain VLDL CALC 9.4 mg/dL Normal [facility] Comment on above: Performed By: #### C MP, LIPID #### [facility] [address] [place] [address] Dr. Demetria Jain PROF 14(COMP METB)on 022 Albumin [Mass/Vol] 4.0 g/dL Normal 3.4-5.0 [facility] Comment on above: Performed By: #### C MP, LIPID #### [facility] [address] [place] [address] Dr. Demetria Jain Albumin/Globulin [Mass ratio] 1.1 {ratio} Normal [facility] Comment on above: Performed By: #### C MP, LIPID #### [facility] [address] [place] [address] Dr. Demetria Jain ALP [Catalytic activity/Vol] 89 U/L Normal 46-116 [facility] Comment on above: Performed By: #### C MP, LIPID #### [facility] [address] [place] [address] Dr. Demetria Jain ALT [Catalytic activity/Vol] 26 U/L Normal 16-63 [facility] Comment on above: Performed By: #### C MP, LIPID #### [facility] [address] [place] [address] Dr. Demetria Jain Anion gap [Moles/Vol] 15.0 mmol/L Normal [facility] Comment on above: Performed By: #### C MP, LIPID #### [facility] [address] [place] [address] Dr. Demetria Jain AST [Catalytic activity/Vol] 18 U/L Normal 15-37 [facility] Comment on above: Performed By: #### C MP, LIPID #### [facility] [address] [place] [address] Dr. Demetria Jain Bilirubin [Mass/Vol] 0.7 mg/dL Normal 0.2-1.0 [facility] Comment on above: Performed By: #### C MP, LIPID #### [facility] [address] [place] [address] Dr. Demetria Jain Calcium [Mass/Vol] 9.2 mg/dL Normal 8.5-10.1 [facility] Comment on above: Performed By: #### C MP, LIPID #### [facility] [address] [place] [address] Dr. Demetria Jain Chloride [Moles/Vol] 100 mmol/L Normal 98-107 [facility] Comment on above: Performed By: #### C MP, LIPID #### [facility] [address] [place] [address] Dr. Demetria Jain CO2 [Moles/Vol] 25.8 mmol/L Normal 21.0-32.0 [facility] Comment on above: Performed By: #### C MP, LIPID #### [facility] [address] [place] [address] Dr. Demetria Jain Creatinine [Mass/Vol] 0.76 mg/dL Normal 0.70-1.30 [facility] Comment on above: Performed By: #### C MP, LIPID #### [facility] [address] [place] [address] Dr. Demetria Jain EGFR-AF ALBANIAN >60 Normal >=60 [facility] Comment on above: Performed By: #### C MP, LIPID #### [facility] [address] [place] [address] Dr. Demetria Jain EGFR-NON AF ALBANIAN >60 Normal >=60 [facility] Comment on above: Performed By: #### C MP, LIPID #### [facility] [address] [place] [address] Dr. Demetria Jain Globulin (S) [Mass/Vol] 3.6 g/dL Normal [facility] Comment on above: Performed By: #### C MP, LIPID #### [facility] [address] [address] [address] Demetria Jain Glucose [Mass/Vol] 87 mg/dL Normal 74-106 [facility] Comment on above: Performed By: #### C MP, LIPID #### [facility] [address] [place] [address] Dr. Demetria Jain Potassium [Moles/Vol] 3.8 mmol/L Normal 3.5-5.1 [facility] Comment on above: Performed By: #### C MP, LIPID #### [facility] [address] [place] [address] Dr. Demetria Jain Protein [Mass/Vol] 7.6 g/dL Normal 6.4-8.2 [facility] Comment on above: Performed By: #### C MP, LIPID #### [facility] [address] [place] [address] Dr. Demetria Jain Sodium [Moles/Vol] 137 mmol/L Normal 136-145 [facility] Comment on above: Performed By: #### C MP, LIPID #### [facility] [address] [place] [address] Dr. Demetria Jain Urea nitrogen [Mass/Vol] 15.0 mg/dL Normal 7.0-18.0 [facility] Comment on above: Performed By: #### C MP, LIPID #### [facility] [address] [place] [address] Dr. Demetria Jain Urea nitrogen/Creatinine [Mass ratio] 19.7 mg/mg Normal [facility] Comment on above: Performed By: #### C MP, LIPID #### [facility] [address] [place] [address] Dr. Demetria Jain CBC AUTO DIFFon 04-23-2021 BASO # 0.1 103/ul Normal 0.0-0.1 [facility] Comment on above: Performed By: #### C BC #### [facility] [address] [place] [address] Dr. Demetria Jain Basophils/100 WBC (Bld) 0.5 % Normal 0.2-2.0 [facility] Comment on above: Performed By: #### C BC #### [facility] [address] [place] [address] Dr. Demetria Jain EO # 0.3 103/ul Normal 0.0-0.7 [facility] Comment on above: Performed By: #### C BC #### [facility] [address] [place] [address] Dr. Demetria Jain Eosinophils/100 WBC (Bld) 2.8 % Normal 0.9-7.0 [facility] Comment on above: Performed By: #### C BC #### [facility] [address] [place] [address] Dr. Demetria Jain Erythrocyte distribution width (RBC) [Ratio] 12.7 % Normal 11.0-15.0 [facility] Comment on above: Performed By: #### C BC #### [facility] [address] [place] [address] Dr. Demetria Jain Hematocrit (Bld) [Volume fraction] 38.1 % Critically low 42.0-54.0 [facility] Comment on above: Performed By: #### C BC #### [facility] [address] [place] [address] Dr. Demetria Jain Hemoglobin (Bld) [Mass/Vol] 12.9 g/dL Critically low 14.0-18.0 [facility] Comment on above: Performed By: #### C BC #### [facility] [address] [place] [address] Dr. Demetria Jain IG # 0.04 10e3/ul Critically high 0.00-0.03 [facility] Comment on above: Performed By: #### C BC #### [facility] [address] [place] [address] Dr. Demetria Jain IG % 0.4 % Normal 0.0-0.5 [facility] Comment on above: Performed By: #### C BC #### [facility] [address] [place] [address] Dr. Demetria Jain LYMPH # 1.3 103/ul Normal 1.2-3.8 [facility] Comment on above: Performed By: #### C BC #### [facility] [address] [place] [address] Dr. Demetria Jain Lymphocytes/100 WBC (Bld) 11.5 % Critically low 20.5-60.0 [facility] Comment on above: Performed By: #### C BC #### [facility] [address] [place] [address] Dr. Demetria Jain MANUAL DIFF REQ NO Normal [facility] Comment on above: Performed By: #### C BC #### [facility] [address] [place] [address] Dr. Demetria Jain MCH (RBC) [Entitic mass] 30.4 pg Normal 25.9-34.0 [facility] Comment on above: Performed By: #### C BC #### [facility] [address] [place] [address] Dr. Demetria Jain MCHC (RBC) [Mass/Vol] 33.9 g/dL Normal 29.9-35.2 [facility] Comment on above: Performed By: #### C BC #### [facility] [address] [place] [address] Dr. Demetria Jain MCV (RBC) [Entitic vol] 89.9 fL Normal 80.0-94.0 [facility] Comment on above: Performed By: #### C BC #### [facility] [address] [place] [address] Dr. Demetria Jain MONO # 0.7 103/ul Normal 0.3-0.8 [facility] Comment on above: Performed By: #### C BC #### [facility] [address] [place] [address] Dr. Demetria Jain Monocytes/100 WBC (Bld) 6.3 % Normal 1.7-12.0 [facility] Comment on above: Performed By: #### C BC #### [facility] [address] [place] [address] Dr. Demetria Jain NEUT # 8.8 103/ul Critically high 1.4-6.5 [facility] Comment on above: Performed By: #### C BC #### [facility] [address] [address] [address] Demetria Jain Neutrophils/100 WBC (Bld) 78.5 % Critically high 43.0-75.0 [facility] Comment on above: Performed By: #### C BC #### [facility] [address] [address] [address] Demetria Jain Platelet mean volume (Bld) [Entitic vol] 10.6 fL Normal 9.5-13.5 [facility] Comment on above: Performed By: #### C BC #### [facility] [address] [address] [address] Demetria Jain PLT 226 103/ul Normal 150-450 [facility] Comment on above: Performed By: #### C BC #### [facility] [address] [place] [address] Dr. Demetria Jain RBC 4.24 106/ul Critically low 4.70-6.10 [facility] Comment on above: Performed By: #### C BC #### [facility] [id number] Demetria Jain WBC 11.2 103/ul Critically high 4.0-11.0 [facility] Comment on above: Performed By: #### C BC #### [facility] [address] [place], [place] [id number] Dr. Demetria Jain CT ABD/PELV W CONon [...] EDIN SELF Date: 2021-04-23 21:42 Normal [facility] ER URINE PROFILEon 1 Bilirubin Ql (U) Negative Normal NEGATIVE [facility] Comment on above: Performed By: #### E RUR #### [facility] [address] [place] [address] Dr. Demetria Jain Clarity (U) CLEAR Normal CLEAR [facility] Comment on above: Performed By: #### E RUR #### [facility] [address] [place] [address] Dr. Demetria Jain Color (U) LT. YELLOW Normal YELLOW [facility] Comment on above: Performed By: #### E RUR #### [facility] [address] [place] [address] Dr. Demetria Jain ERUAHD A micrscopic examina tion will be performed if indicated. Normal [facility] Comment on above: Performed By: #### E RUR #### [facility] [address] [place] [address] Dr. Demetria Jain Glucose Ql (U) Negative Normal NEGATIVE [facility] Comment on above: Performed By: #### E RUR #### [facility] [address] [place] [address] Dr. Demetria Jain Hemoglobin Ql (U) Negative Normal NEGATIVE [facility] Comment on above: Performed By: #### E RUR #### [facility] [address] [place] [address] Dr. Demetria Jain Ketones Ql (U) Negative Normal NEGATIVE [facility] Comment on above: Performed By: #### E RUR #### [facility] [address] [place] [address] Dr. Demetria Jain LEUKOCYTES Negative Normal NEGATIVE [facility] Comment on above: Performed By: #### E RUR #### [facility] [address] [place] [address] Dr. Demetria Jain Nitrite Ql (U) Negative Normal NEGATIVE [facility] Comment on above: Performed By: #### E RUR #### [facility] [address] [place] [address] Dr. Demetria Jain pH (U) 5.5 [pH] Normal 5-9 [facility] Comment on above: Performed By: #### E RUR #### [facility] [address] [place] [address] Dr. Demetria Jain SPEC GRAVITY 1.025 Normal 1.005-<=1. 025 [facility] Comment on above: Performed By: #### E RUR #### [facility] [address] [place] [address] Dr. Demetria Jain UA PROTEIN Negative Normal NEGATIVE/ TRACE [facility] Comment on above: Performed By: #### E RUR #### [facility] [address] [place] [address] Dr. Demetria Jain UR MICRO IND NOT INDICATED Normal [facility] Comment on above: Performed By: #### E RUR #### [facility] [address] [place] [address] Dr. Demetria Jain Urobilinogen Qn (U) 0.2 {Cata'U}/dL Normal 0.2 - 1. 0 [facility] Comment on above: Performed By: #### E RUR #### [facility] [address] [place] [address] Dr. Demetria Jain LACTATE/LACTIC ACIDon 2020 Lactate [Moles/Vol] 1.7 mmol/L Normal 0.7-2.0 [facility] Comment on above: Performed By: #### L ACT #### [facility] [address] [place] [address] Dr. Demetria Jain LIPASEon 04-23-2021 Lipase [Catalytic activity/Vol] 68.0 U/L Normal 23.0-300.0 [facility] Comment on above: Performed By: #### C MP, LIPA #### [facility] [address] [place] [address] Dr. Demetria Jain PROF 14(COMP METB)on 021 Albumin [Mass/Vol] 3.7 g/dL Normal 3.5-5.0 [facility] Comment on above: Performed By: #### C MP, LIPA #### [facility] [address] [place] [address] Dr. Demetria Jain Albumin/Globulin [Mass ratio] 1.0 {ratio} Normal [facility] Comment on above: Performed By: #### C MP, LIPA #### [facility] [address] [place] [address] Dr. Demetria Jain ALP [Catalytic activity/Vol] 99 U/L Normal 38-126 [facility] Comment on above: Performed By: #### C MP, LIPA #### [facility] [address] [place] [address] Dr. Demetria Jain ALT [Catalytic activity/Vol] 31 U/L Normal 21-72 [facility] Comment on above: Performed By: #### C MP, LIPA #### [facility] [address] [place] [address] Dr. Demetria Jain Anion gap [Moles/Vol] 15.0 mmol/L Normal [facility] Comment on above: Performed By: #### C MP, LIPA #### [facility] [address] [address] [address] Demetria Jain AST [Catalytic activity/Vol] 24 U/L Normal 17-59 [facility] Comment on above: Performed By: #### C MP, LIPA #### [facility] [address] [place] [address] Dr. Demetria Jain Bilirubin [Mass/Vol] 0.8 mg/dL Normal 0.2-1.3 [facility] Comment on above: Performed By: #### C MP, LIPA #### [facility] [address] [place] [address] Dr. Demetria Jain Calcium [Mass/Vol] 9.2 mg/dL Normal 8.4-10.2 [facility] Comment on above: Performed By: #### C MP, LIPA #### [facility] [address] [place] [address] Dr. Demetria Jain Chloride [Moles/Vol] 98 mmol/L Normal 98-107 [facility] Comment on above: Performed By: #### C MP, LIPA #### [facility] [address] [place] [address] Dr. Demetria Jain CO2 [Moles/Vol] 23.6 mmol/L Normal 22.0-30.0 [facility] Comment on above: Performed By: #### C MP, LIPA #### [facility] [address] [place] [address] Dr. Demetria Jain Creatinine [Mass/Vol] 0.93 mg/dL Normal 0.66-1.25 [facility] Comment on above: Performed By: #### C MP, LIPA #### [facility] [address] [place] [address] Dr. Demetria Jain EGFR-AF ALBANIAN >60 Normal >=60 [facility] Comment on above: Performed By: #### C MP, LIPA #### [facility] [address] [place] [address] Dr. Demetria Jain EGFR-NON AF [place]IAN >60 Normal >=60 [facility] Comment on above: Performed By: #### C MP, LIPA #### [facility] [address] [place] [address] Dr. Demetria Jain Globulin (S) [Mass/Vol] 3.6 g/dL Normal [facility] Comment on above: Performed By: #### C MP, LIPA #### [facility] [address] [place] [address] Dr. Demetria Jain Glucose [Mass/Vol] 103 mg/dL Normal 74-106 [facility] Comment on above: Performed By: #### C MP, LIPA #### [facility] [address] [place] [address] Dr. Demetria Jain Potassium [Moles/Vol] 3.6 mmol/L Normal 3.4-5.0 [facility] Comment on above: Performed By: #### C MP, LIPA #### [facility] [address] [place] [address] Dr. Demetria Jain Protein [Mass/Vol] 7.3 g/dL Normal 6.1-8.2 [facility] Comment on above: Performed By: #### C MP, LIPA #### [facility] [address] [place] [address] Dr. Demetria Jain Sodium [Moles/Vol] 133 mmol/L Critically low 137-145 [facility] Comment on above: Performed By: #### C MP, LIPA #### [facility] [address] [place] [address] Dr. Demetria Jain Urea nitrogen [Mass/Vol] 15.0 mg/dL Normal 9.0-20.0 [facility] Comment on above: Performed By: #### C MP, LIPA #### [facility] [address] [place] [address] Dr. Demetria Jain Urea nitrogen/Creatinine [Mass ratio] 16.1 mg/mg Normal [facility] Comment on above: Performed By: #### C MP, LIPA #### [facility] [address] [place] [address] Dr. Demetria Jain TROPONIN, HIGH SENSITIVITYon 04-23-2021 HSTROP 9.3 pg/mL Normal 4.0-42.2 [facility] Comment on above: Result Comment: CUT- OFF POINTS HAVE BEEN ESTABLISHED BASED ON THE FOURTH UNIVERSAL DEFINITIONS OF MYOCARDIAL INFARCTION. THE UPPER REFERENCE LIMIT (URL) OF TROPONIN, DEFINED THE 99TH PERCENTILE OF cTnI DISTRIBUTION IN A REFERENCE POPULATION, HAS BEEN CONFIRMED THE DECISION THRESHOLD FOR [place] DIAGNOSIS. Performed By: #### H STROPN ####[facility] [address] [place], [place] [address]Xk. Demetria Jain Tobacco Screening.on 021 Fall risk assessment a) No falls within the last year -[facility] [facility] [address] DO Work Phone: Tobacco use status CP b) No -[facility] [facility] [address] DO Work Phone: CREATININEon 04-08-2020 Creatinine [Mass/Vol] 0.84 mg/dL Normal 0.70-1.33 [facility]yze Comment on above: Result Comment: For patients >49 years of age, the reference limit for Creatinine is approximately 13% higher for people identified as -Guyanese. Performed By: #### 3 91, 246, 85916 #### [facility] [address] Transformation Manager: Faraz Garcia MD Creatinine [Mass/Vol] 97 mL/min/1.73m2 Normal > OR = 6 0 [facility] Comment on above: Performed By: #### 3 79, 550, 33872 #### [facility] [address] Transformation Manager: Faraz Garcia MD Creatinine [Mass/Vol] 113 mL/min/1.73m2 Normal > OR = 60 [facility] Comment on above: Performed By: #### 3 12, 256, 08286 #### [facility] [address] Transformation Manager: Faraz Garcia MD ELECTROLYTE PANELon 04-08-20 20 Chloride [Moles/Vol] 102 mmol/L Normal 98-110 [facility] Comment on above: Performed By: #### 3 04, 294, 27435 #### [facility]-[address], [address] [place] [address] Transformation Manager: Faraz Garcia MD CO2 [Moles/Vol] 28 mmol/L Normal 20-32 [facility] Comment on above: Performed By: #### 3 75, 294, 96906 #### [facility], [address] [place] [address] Transformation Manager: Faraz Garcia MD Potassium [Moles/Vol] 3.6 mmol/L Normal 3.5-5.[address] [facility] Comment on above: Performed By: #### 3 75, 294, 06953 #### [facility], [address] [place] [address] Transformation Manager: Faraz Garcia MD Sodium [Moles/Vol] 139 mmol/L Normal 135-146 [facility] Comment on above: Performed By: #### 3 75, 294, 89418 #### [facility], [address] [place] [address] Transformation Manager: Faraz Garcia MD UREA NITROGEN (BUN)on 2019 Urea nitrogen [Mass/Vol] 13 mg/dL Normal 7-25 [facility] Comment on above: Order Comment: FASTI NG: UNKNOWN Performed By: #### 3 75, 294, 77852 #### [facility], [address] [place] [address] Transformation Manager: Faraz Garcia MD PROGRESSon 06-17-2017 PROGRESS HNO ID: [id number] thor: Sukhwinder Casey: (none)Author Type: PhysicianType: Progress NotesFiled: 06/17/2017 3:24 PMNote Text:Heart and Vascular InstituteRobrehoboth m[facility] and Elayne Castaneda Department of Cardiovascular MedicineOUTPATIENT VISIT DATE06/17/17OUTPATIENT VISIT TYPEESTABLISHEDPRIMARY CARE PHYSICIAN:Nirav Cain MD[address] [place] [address]Wyenx: [phone]: [phone] COMPLAINT:Coronary artery diseaseHISTORY OF PRESENT ILLNESS:Abraham Harry [...] in LAD/left circumflex. EF about 40%.- Cardiomyopathy ([facility]) 07/03/2015 EF 35?40%. Nonischemic- CHF (congestive heart failure) ([facility]) 07/11/15 EF 40%. EF improved to 50% on 10/17/15.- COPD (chronic obstructive pulmonary disease) ([facility])- HTN (hypertension)- Obesity- Obstructive sleep apnea- Plantar [...] d. 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 ObeseNeuro: [...] or concerns.Sukhwinder Soto M.D.Dale Chavezpartment of Cardiovascular MedicineHeart and Vascular InstituteKettering Health Washington Township[address], [place] [address]Lunyvg: [phone] Normal [facility] NM-NM Myocardial Spect Rest/ Stress 1 Day IMPORTon 06-10-2017 NM-NM Myocardial Spect Rest/Stress 1 Day IMPORT Images were obtained outside of [facility] [id number] Normal [facility] US-Echo Transthoracic w/ Con trast IMPORTon 06-10-2017 US-Echo Transthoracic w/ Contrast IMPORT Images were obtained outside of [facility] [id number] Normal [facility] CNOVon 05-31-2017 CNOV Office Visit (CARDFT) ABRAHAM HARRY ([id number]) 1960 MDate Time Provider Department05/31/17 3:00 PM SUKHWINDER SOTO During your visit today, we recorded the following information about you: Pulse Respiration Blood pressure Weight 89/minute 18/minute 126/80 119.3 kg Height 1.803 Emi Soto MD 05/31/2017 3:20 PM [facility] and Vascular InstituteRobert and [facility] Department of Cardiovascular MedicineOUTPATIENT VISIT DATE05/31/17OUTPATIENT VISIT TYPEESTABLISHEDPRIMARY CARE PHYSICIAN:Nirav Cain MD[address] [facility] [address]Qzvpv: [phone]: [phone] COMPLAINT:Preoperative risk assessmentHISTORY OF PRESENT ILLNESS:Abraham Harry [...] disease inLAD/left circumflex. EF about 40%.- Cardiomyopathy ([facility]) 07/03/2015 EF 35?40%. Nonischemic- CHF (congestive heart failure) ([facility]) 07/11/15 EF 40%. EF improved to 50% on 10/17/15.- COPD (chronic obstructive pulmonary disease) ([facility])- HTN (hypertension)- Obesity- Obstructive sleep apnea- Plantar [...] d. 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 ObeseNeuro: [...] or concerns.Sukhwinder Soto M.D.Dale CastanedaDepartment of Cardiovascular MedicineFayette County Memorial Hospitalrt and Vascular Institute[address] [address]Ahwmxt: [phone] Referring Provider: ANT OGDEN, NIRAV MARIA [[id number]]Allergies As of Date: 05/31/2017(No Known Allergies)Date Reviewed: 05/31/2017Reviewed by: Nico Starkey (Laith) LAITH Aguilar - Fully AssessedPrimary Visit Diagnosis:Atherosclerosis of [place] coronary artery of [place] heart without angina pectoris [I25.10] Other Visit Diagnoses:Essential hypertension [I10] Systolic heart failure, unspecified heart failure chronicity (HCC) [I50.20]Order(s):ECHO [[id number]] Order #: [id number]: 1 FUTURE PHARMACOLOGIC STRESS W/NUC IMAGING [[id number]] Order #: [id number]: 1 NM CARDIAC PERF STRESS/PHARM [[id number]] Order #: [id number] FUTURE HOLTER MONITOR 48 HOUR [[id number]] Order #: [id number] FUTUREPrescriptions as of 05/31/2017 Sig: SPIRIVA WITH [...] HTN (hypertension) [I10] INVALID FOR* Atherosclerosis of [place] coronary artery of na*INVALID FOR* Acute on chronic systolic congestive heart fail*INVALID FOR* Abnormal stress test [R94.39] INVALID FOR* Chronic systolic congestive heart failure (HCC)*INVALID FOR* Dyspnea, unspecified [R06.00] INVALID FOR* Bilateral low back pain with sciatica [M54.40] INVALID FOR* Tachycardia [R00.0] INVALID FOR*Disposition: Return in about 2 weeks (around 06/14/2017).Follow-up and Disposition History RecordedEncounter Number: [id number] Status:Closed by SUKHWINDER SOTO MD on 05/31/17 Normal [facility] PROGRESSon 05-26-2017 PROGRESS HNO ID: [id number] thor: Sukhwinder Casey: (none)Author Type: PhysicianType: Progress NotesFiled: 05/31/2017 3:20 PMNote Text:Heart and Vascular InstituteRobert and Elayne Castaneda Department of Cardiovascular MedicineOUTPATIENT VISIT DATE05/31/17OUTPATIENT VISIT TYPEESTABLISHEDPRIMARY CARE PHYSICIAN:Nirav Cain MD[address] [facility] [place] [address]Cegeh: [phone]: [phone] COMPLAINT:Preoperative risk assessmentHISTORY OF PRESENT ILLNESS:Abraham Harry [...] in LAD/left circumflex. EF about 40%.- Cardiomyopathy ([facility]) 07/03/2015 EF 35?40%. Nonischemic- CHF (congestive heart failure) ([facility]) 07/11/15 EF 40%. EF improved to 50% on 10/17/15.- COPD (chronic obstructive pulmonary disease) ([facility])- HTN (hypertension)- Obesity- Obstructive sleep apnea- Plantar [...] d. 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 ObeseNeuro: [...] contact us with further questions or concerns.Shania ChoeOlympic Memorial Hospitalment of Cardiovascular MedicineAbrazo West Campus and Vascular InstituteMichelle Ville [address] [facility].[place], [place] [address]Epofgn: [phone] [facility] CNOVon 11-15-2016 CNOV Office Visit (CARDFT) ABRAHAM HARRY ([id number]) 1960 MDate Time Provider Department11/15/16 9:30 AM SUKHWINDER SOTO During your visit today, we recorded the following information about you: Pulse Respiration Blood pressure Weight 80/minute 18/minute 147/97 115.2 kg Height 1.803 Emi Soto MD 11/15/2016 9:39 AM [facility] and Vascular [facility]tecRobrehoboth [facility] and Elayne Castaneda Department of Cardiovascular MedicineOUTPATIENT VISIT DATE 11/15/16OUTPATIENT VISIT TYPEESTABLISHEDPRIMARY CARE PHYSICIAN:Nirav Cain MD[address] [place] [facility] [address]Sggmf: [phone]: [phone] COMPLAINT:Preoperative risk assessmentHISTORY OF PRESENT ILLNESS:Abraham Harry [...] disease inLAD/left circumflex. EF about 40%.- Cardiomyopathy ([facility]) 07/03/2015 EF 35?40%. Nonischemic- CHF (congestive heart failure) ([facility]) 07/11/15 EF 40%. 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 ObeseNeuro: [...] further questions or concerns.Sukhwinder HampoleShania of Cardiovascular MedicineFayette County Memorial Hospitalrt and Vascular InstituteKettering Health Washington Township[address], [place] [address]Cpbctv: [phone] Referring Provider: RYLAN HOGAN [[id number]]Allergies As of Date: 11/15/2016(No Known Allergies)Date Reviewed: 11/15/2016Reviewed by: Nico Starkey (Rn) LAITH Aguilar - Fully AssessedReason for Visit: Cardiac Clearance [4105]Primary Visit Diagnosis:Atherosclerosis of [place] coronary artery of [place] heart without angina pectoris [I25.10] Other Visit [...] HTN (hypertension) [I10] INVALID FOR* Atherosclerosis of [place] coronary artery of na*INVALID FOR* Acute on chronic systolic congestive heart fail*INVALID FOR* Abnormal stress test [R94.39] INVALID FOR* Chronic systolic congestive heart failure (HCC)*INVALID FOR* Dyspnea, unspecified [R06.00] INVALID FOR* Bilateral low back pain with sciatica [M54.40] INVALID FOR* Tachycardia [R00.0] INVALID FOR*Disposition: Return in about 6 months (around 05/18/2017).Follow-up and Disposition History RecordedEncounter Number: [id number] Status:Closed by SUKHWINDER SOTO MD on 11/15/16 Normal [facility] PROGRESSon 11-10-2016 PROGRESS HNO ID: [id number] thor: Sukhwinder CoolAmelia: (none)Author Type: PhysicianType: Progress NotesFiled: 11/15/2016 9:39 AMNote Text:Heart and Vascular InstituteBayville and Elayne Castaneda Department of Cardiovascular MedicineOUTPATIENT VISIT DATE 11/15/16OUTPATIENT VISIT TYPEESTABLISHEDPRIMARY CARE PHYSICIAN:Nirav Cain MD[address] [place] [address]Vonwy: [phone]: [phone] COMPLAINT:Preoperative risk assessmentHISTORY OF PRESENT ILLNESS:Abraham Harry [...] in LAD/left circumflex. EF about 40%.- Cardiomyopathy ([facility]) 07/03/2015 EF 35?40%. Nonischemic- CHF (congestive heart failure) ([facility]) 07/11/15 EF 40%. EF improved to 50% on 10/17/15.- COPD (chronic obstructive pulmonary disease) ([facility])- HTN (hypertension)- Obesity- Obstructive sleep apnea- Plantar fasciitis Right footPAST SURGICAL [id number]: HERNIA REPAIR HXNo date: PAST SURGICAL HISTORY [...] @ 46 heart aneurysm Heart Father Comment: [place] x 4ALLERGIES:ALLERGIESNo Known AllergiesMEDICATIONS:tamara nolactone (ALDACTONE) 52 [...] 115.2 kg (254lb) SpO2 96% BMI 35.43 kg/r5Dzfwbae: Well appearing, in no acute distress. ObeseNeuro: [...] or concerns.Sukhwinder Soto M.D.Dale Chavezpartment of Cardiovascular MedicineFayette County Memorial Hospitalrt and Vascular InstituteJohn Ville [address] [address], [place] [address]Hfqksj: [phone] Normal [facility] Vital Signs Date Time Vital Sign Value Performing Clinician Facility 06-25-2024 14:40-0500 Body height 180.34 cm [facility] 06-25-2024 14:40-0500 Body mass index (BMI) [Ratio] 37.5 kg/m2 [facility] 06-25-2024 14:40-0500 Body weight 122.01 kg [facility] 06-25-2024 14:40-0500 Diastolic blood pressure 95 mm[Hg] [facility] 06-25-2024 14:40-0500 Heart rate 98 /min [facility] 06-25-2024 14:40-0500 Respiratory rate 20 /min [facility] 06-25-2024 14:40-0500 SaO2% (BldA) [Mass fraction] 98 % [facility] 06-25-2024 14:40-0500 Systolic blood pressure 149 mm[Hg] [facility] 04-13-2024 10:20-0500 Diastolic blood pressure 80 mm[Hg] Nicanor Calvo MANAGER MORTGAGE-TOOL GRINDING MACHINE OPERATOR Work Phone: [facility] 04-13-2024 10:20-0500 Systolic blood pressure 138 mm[Hg] Nicanor Calvo MANAGER MORTGAGE-TOOL GRINDING MACHINE OPERATOR Work Phone: [facility] 04-13-2024 09:59-0500 Heart rate 82 /min Nicanor Calvo MANAGER MORTGAGE-TOOL GRINDING MACHINE OPERATOR Work Phone: [facility] 04-13-2024 09:53-0500 Body height 180.3 cm Nicanor Calvo MANAGER MORTGAGE-TOOL GRINDING MACHINE OPERATOR Work Phone: [facility] 04-13-2024 09:53-0500 Body mass index (BMI) [Ratio] 37.38 kg/m2 Nicanor Calvo MANAGER MORTGAGE-TOOL GRINDING MACHINE OPERATOR Work Phone: [facility] 04-13-2024 09:53-0500 Body weight 121.56 kg Nicanor Calvo MANAGER MORTGAGE-TOOL GRINDING MACHINE OPERATOR Work Phone: [facility] 01-17-2024 15:06-0400 Diastolic blood pressure 76 mm[Hg] Rey Leiva DO Work Phone: [facility] 01-17-2024 15:06-0400 Heart rate 90 /min Rey Leiva DO Work Phone: [facility] 01-17-2024 15:06-0400 Systolic blood pressure 122 mm[Hg] Rey Leiva DO Work Phone: [facility] 01-17-2024 14:10-0400 Body height 179.1 cm Rey Leiva DO Work Phone: [facility] 01-17-2024 14:10-0400 Body mass index (BMI) [Ratio] 37.2 kg/m2 Rey Leiva DO Work Phone: [facility] 01-17-2024 14:10-0400 Body weight 119.3 kg Rey Leiva DO Work Phone: [facility] 12-26-2023 14:04-0400 Body height 180.34 cm DO Nirav House Work Phone: [facility] 12-26-2023 14:04-0400 Body mass index (BMI) [Ratio] 36.5 kg/m2 DO Nirav House Work Phone: [facility] 12-26-2023 14:04-0400 Body temperature 97.2 [degF] DO Nirav House Work Phone: [facility] 12-26-2023 14:04-0400 Body weight 118.84 kg DO Nirav House Work Phone: [facility] 12-26-2023 14:04-0400 Diastolic blood pressure 88 mm[Hg] DO Nirav House Work Phone: [facility] 12-26-2023 14:04-0400 Heart rate 88 /min DO Nirav House Work Phone: [facility] 12-26-2023 14:04-0400 Respiratory rate 20 /min DO Nirav House Work Phone: [facility] 12-26-2023 14:04-0400 SaO2% (BldA) [Mass fraction] 97 % DO Nirav Cain Work Phone: [facility] 12-26-2023 14:04-0400 Systolic blood pressure 140 mm[Hg] DO Nirav House Work Phone: [facility] 12-08-2023 10:03-0400 Diastolic blood pressure 86 mm[Hg] DO Nirav House Work Phone: [facility] 12-08-2023 10:03-0400 Heart rate 85 /min DO Nirav House Work Phone: [facility] 12-08-2023 10:03-0400 Respiratory rate 20 /min DO Nirav House Work Phone: [facility] 12-08-2023 10:03-0400 SaO2% (BldA) [Mass fraction] 100 % DO Nirav House Work Phone: [facility] 12-08-2023 10:03-0400 Systolic blood pressure 130 mm[Hg] DO Nirav Cain Work Phone: [facility] 12-08-2023 06:51-0400 Body height 180.34 cm DO Nirav Cain Work Phone: [facility] 12-08-2023 06:51-0400 Body weight 117.93 kg DO Nirav Cain Work Phone: [facility] 09-19-2023 13:25-0400 Body height 180.34 cm MD Marbin Ceballos Work Phone: [facility] 09-19-2023 13:25-0400 Body mass index (BMI) [Ratio] 37 kg/m2 MD Marbin Ceballos Work Phone: [facility] 09-19-2023 13:25-0400 Body temperature 98.1 [degF] MD Marbin Ceballos Work Phone: [facility] 09-19-2023 13:25-0400 Body weight 120.65 kg MD Marbin Ceballos Work Phone: [facility] 09-19-2023 13:25-0400 Diastolic blood pressure 90 mm[Hg] MD Marbin Ceballos Work Phone: [facility] 09-19-2023 13:25-0400 Heart rate 84 /min MD Marbin Ceballos Work Phone: [facility] 09-19-2023 13:25-0400 Respiratory rate 20 /min MD Marbin Ceballos Work Phone: [facility] 09-19-2023 13:25-0400 SaO2% (BldA) [Mass fraction] 98 % MD Marbin Ceballos Work Phone: [facility] 09-19-2023 13:25-0400 Systolic blood pressure 132 mm[Hg] MD Marbin Ceballos Work Phone: [facility] 08-02-2023 13:54-0400 Blood Pressure Location Marbin NILL [facility] [place] 08-02-2023 13:54-0400 Diastolic blood pressure 82 mm[Hg] Marbin NILL [facility] [place] 08-02-2023 13:54-0400 Heart rate 72 /min Marbin NILL [facility] [place] 08-02-2023 13:54-0400 Respiratory rate 16 /min Marbin NILL [facility] [place] 08-02-2023 13:54-0400 Systolic blood pressure 122 mm[Hg] Marbin NILL [facility] [place] 07-12-2023 13:39-0400 Blood Pressure Location Marbin NILL [facility] [place] 07-12-2023 13:39-0400 Diastolic blood pressure 88 mm[Hg] Marbin NILL [facility] [place] 07-12-2023 13:39-0400 Heart rate 72 /min Marbin NILL [facility] [place] 07-12-2023 13:39-0400 Respiratory rate 16 /min Marbin NILL [facility] [place] 07-12-2023 13:39-0400 Systolic blood pressure 126 mm[Hg] Marbin NILL [facility] [place] 03-22-2023 13:15-0500 Body height 180.34 cm Chan Taylor Other [employer] Other 03-22-2023 13:15-0500 Body mass index (BMI) [Ratio] 36.51 kg/m2 Chan Taylor Other [employer] Other 03-22-2023 13:15-0500 Body temperature 98.1 [degF] Chan Taylor Other [employer] Other 03-22-2023 13:15-0500 Body weight 118.75 kg Chan Taylor Other [employer] Other 03-22-2023 13:15-0500 Diastolic blood pressure 80 mm[Hg] Chan Taylor Other [employer] Other 03-22-2023 13:15-0500 Respiratory rate 20 /min Chan Taylor Other [employer] Other 03-22-2023 13:15-0500 SaO2% (BldA) [Mass fraction] 98 % Chan Taylor Other [employer] Other 03-22-2023 13:15-0500 Systolic blood pressure 140 mm[Hg] Chan Taylor Other [employer] Other 01-27-2023 08:32-0400 Body height 180.34 cm Nirav [employer] Work Phone: [facility] Work Phone: 01-27-2023 08:32-0400 Body mass index (BMI) [Ratio] 35.71 kg/m2 Nirav [employer] Work Phone: [facility] Work Phone: 01-27-2023 08:32-0400 Body surface area Derived from formula 2.34 m2 Nirav P House Work Phone: [facility] Work Phone: 01-27-2023 08:32-0400 Body weight 116.12 kg Nirav P House Work Phone: [facility] Work Phone: 01-27-2023 08:32-0400 Diastolic blood pressure 78 mm[Hg] Nirav [employer] Work Phone: [facility] Work Phone: 01-27-2023 08:32-0400 Heart rate 80 /min Nirav P House Work Phone: [facility] Work Phone: 01-27-2023 08:32-0400 Systolic blood pressure 110 mm[Hg] Nirav P House Work Phone: [facility] Work Phone: 01-26-2023 07:31-0400 Body temperature 98.2 [degF] Corie Bonilla MD Work Phone: [employer] 01-26-2023 07:31-0400 Diastolic blood pressure 82 mm[Hg] Corie Bonilla MD Work Phone: [employer] 01-26-2023 07:31-0400 Heart rate 74 /min Corie Bonilla MD Work Phone: [employer] 01-26-2023 07:31-0400 Respiratory rate 20 /min Corie Bonilla MD Work Phone: [employer] 01-26-2023 07:31-0400 SaO2% (BldA) [Mass fraction] 97 % Corie Bonilla MD Work Phone: [employer] 01-26-2023 07:31-0400 Systolic blood pressure 127 mm[Hg] Corie Bonilla MD Work Phone: [facility] [employer] 04-15-2022 15:07-0500 Body height 179.07 cm Nirav P House Work Phone: [facility] [employer] 250 DO Work Phone: 04-15-2022 15:07-0500 Body mass index (BMI) [Ratio] 37.8 kg/m2 Nirav P House Work Phone: [facility] [employer] 250 DO Work Phone: 04-15-2022 15:07-0500 Body surface area Derived from formula 2.37 m2 Nirav P House Work Phone: [facility] 250 DO Work Phone: 04-15-2022 15:07-0500 Body weight 121.2 kg Nirav P House Work Phone: [facility] 250 DO Work Phone: 04-15-2022 15:07-0500 Diastolic blood pressure 80 mm[Hg] Nirav P House Work Phone: [facility] 250 DO Work Phone: 04-15-2022 15:07-0500 Heart rate 96 /min Nirav P House Work Phone: [facility] 250 DO Work Phone: 04-15-2022 15:07-0500 Systolic blood pressure 110 mm[Hg] Nirav P House Work Phone: [facility] 250 DO Work Phone: 04-16-2021 15:40-0500 Body height 180.34 cm Gabriel Stacey Hoy Work Phone: [facility] 250 DO Work Phone: 04-16-2021 15:40-0500 Body mass index (BMI) [Ratio] 37.94 kg/m2 Gabriel Stacey Hoy Work Phone: [facility] 250 DO Work Phone: 04-16-2021 15:40-0500 Body surface area Derived from formula 2.4 m2 Gabriel M Hoy Work Phone: [facility] 250 DO Work Phone: 04-16-2021 15:40-0500 Body weight 123.38 kg Gabriel M Hoy Work Phone: [facility] 250 DO Work Phone: 04-16-2021 15:40-0500 Diastolic blood pressure 84 mm[Hg] Gabriel Ibarra Hoyamel Work Phone: [facility] 250 DO Work Phone: 04-16-2021 15:40-0500 Heart rate 90 /min Gabriel Ibarra Hoyamel Work Phone: [facility] 250 DO Work Phone: 04-16-2021 15:40-0500 Systolic blood pressure 128 mm[Hg] Gabriel Munoz Work Phone: [facility] 250 DO Work Phone: Encounters Encounter Date Encounter Type Care Provider Facility Start: 01-09-2025 End: 01-09-2025 [facility] Start: 01-09-2025 End: 01-09-2025 Patient encounter procedure Marbin CEBALLOS [facility] Start: 12-26-2024 End: 12-26-2024 ambulatory [facility] Start: 12-26-2024 End: 12-26-2024 Patient encounter procedure Marbin CEBALLOS [facility] Start: 06-25-2024 End: 06-25-2024 ambulatory [facility] Work Phone: Start: 06-25-2024 End: 06-25-2024 Patient encounter procedure [facility] Work Phone: Start: 04-13-2024 End: 04-13-2024 Office outpatient visit 10 minutes Nicanor Calvo MANAGER MORTGAGE-TOOL GRINDING MACHINE OPERATOR Work Phone: [facility] Comment on above: Essential hypertensi on Start: 04-13-2024 End: 04-13-2024 ambulatory NICANOR CALVO [facility] Ambulatory Start: 03-19-2024 End: 03-19-2024 ambulatory NIRAV P HOUSE Facility:[facility] Cli mich[facility] Start: 01-17-2024 End: 01-17-2024 Office outpatient visit 25 minutes Rey Leiva DO Work Phone: [facility] Comment on above: ASHD (arteriosclerot ic heart disease); Chronic obstructive pulmonary disease, unspecified COPD type (Multi); Essential hypertension; Hyperlipidemia, unspecified hyperlipidemia type; Cerebrovascular accident (CVA), unspecified mechanism (Multi); BMI 37.0-37.9, adult; Former smoker Start: 01-17-2024 End: 01-17-2024 ambulatory [facility] Ambulatory Start: 01-17-2024 End: 01-17-2024 Patient encounter procedure DO Nirav Cain Work Phone: [facility] [place] Work Phone: Start: 01-17-2024 End: 01-17-2024 ambulatory DO Nirav Cain Work Phone: [facility] Work Phone: Start: 12-26-2023 End: 12-26-2023 ambulatory DO Nirav Cain Work Phone: [facility] Work Phone: Start: 12-26-2023 End: 12-26-2023 Patient encounter procedure DO Nirav Cain Work Phone: [facility] Work Phone: Start: 12-15-2023 End: 12-15-2023 ambulatory DO NIRAV P HOUSE Facility:[facility] Cli [facility] Start: 12-14-2023 Non-patient / Non-visit DO Shivani rles House Work Phone: [facility] Work Phone: Start: 12-08-2023 Non-patient / Non-visit DO Shivani rles House Work Phone: [facility] Work Phone: Start: 12-08-2023 End: 12-08-2023 Admission to same day surgery center DO Nirav House Work Phone: [facility] Work Phone: Start: 12-08-2023 End: 12-08-2023 ambulatory DO Nirav Cain Work Phone: [facility] Work Phone: Start: 10-10-2023 End: 10-10-2023 ambulatory DO NIRAV P HOUSE Facility:[facility] Cl mich[facility] Start: 10-05-2023 End: 10-05-2023 Patient encounter procedure Marbin CEBALLOS [facility] Start: 09-21-2023 End: 09-21-2023 Patient encounter procedure Marbin CEBALLOS [facility] Start: 09-19-2023 End: 09-19-2023 ambulatory MD Marbin Ceballos Work Phone: [facility] Work Phone: Start: 09-19-2023 End: 09-19-2023 Patient encounter procedure MD Marbin Ceballos Work Phone: [facility] Work Phone: Start: 09-14-2023 End: 09-14-2023 ambulatory Marbin Ceballos Facility:[facility] Start: 09-14-2023 End: 09-14-2023 Departed Referred MD Marbin Ceballos Work Phone: [facility] Start: 08-02-2023 End: 08-02-2023 Patient encounter procedure Marbin CEBALLOS General Surgery Nill/Said [place] Start: 07-12-2023 End: 07-12-2023 Patient encounter procedure Marbin CEBALLOS General Surgery Nill/Said [facility] Start: 04-05-2023 End: 04-05-2023 Patient encounter procedure DO Nirav Cain Work Phone: [facility] [place] Work Phone: Start: 04-05-2023 End: 04-05-2023 ambulatory DO Nirav Cain Work Phone: [facility] Work Phone: Start: 04-04-2023 End: 04-04-2023 ambulatory Kamterrance Chaban Other [facility] [employer] Other Start: 04-04-2023 Telephone encounter Kamterrance Chaban [facility] Start: 03-22-2023 Office outpatient vi sit 25 minutes Kamterrance Chaban [facility] Start: 03-22-2023 End: 03-22-2023 Patient encounter procedure DO Nirav Cain Work Phone: [facility] [place] Work Phone: Start: 03-22-2023 End: 03-22-2023 ambulatory DO Nirav Cain Work Phone: [facility] Work Phone: Start: 01-27-[address] Rey Baca II Facility: Start: 01-25-2023 End: 01-26-2023 Evaluation and management of inpatient [facility] Start: 01-25-2023 End: 01-26-2023 Evaluation and management of inpatient [facility]illa MD [facility] Start: 01-19-2023 End: 01-19-2023 Patient encounter procedure Marbin CEBALLOS General Surgery Lin/Kaylee Christie Start: 12-21-2022 Patient encounter procedure Nirav [facility]ers House Work Phone: [facility] 250 DO Work Phone: Start: 12-21-[address] Nirav Cain Facility:[id number] Start: 11-23-2022 Office outpatient vi sit 25 minutes Nirav Mayers House Work Phone: [facility] Work Phone: Start: 11-23-[address] Rey Baca II Facility: Start: 09-30-2022 End: 09-30-2022 ambulatory DO Nirav Cain Work Phone: [facility] Work Phone: Start: 09-30-2022 End: 09-30-2022 Patient encounter procedure DO Nirav Cain Work Phone: [facility] Work Phone: Start: 04-15-2022 Office outpatient vi sit 25 minutes Nirav Mayers House Work Phone: [facility] 250 DO Work Phone: Start: 04-15-[address] Rey Baca II Facility: Start: 04-01-2022 End: 04-01-2022 ambulatory Chan Taylor Other [employer] Other Start: 04-01-2022 Telephone encounter Chan Taylor [facility] Start: 03-02-2022 Rx Renewal Gabriel M Hoy Work Phone: [facility] 250 DO Work Phone: Start: 02-22-2022 Encounter for genera l adult medical examination without abnormal findings DR NIRAV CAIN [facility] Start: 02-18-2022 End: 02-19-[address] NIRAV CAIN Facility:[facility] Start: 02-18-2022 End: 02-19-2022 Encounter for general adult medical examination without abnormal findings DR NIRAV CAIN Facility:[facility] Start: 11-05-2021 End: 11-05-2021 ambulatory Chan Taylor Other [employer] Other Start: 11-05-2021 Telephone encounter Chan Taylor [facility] Start: 10-23-2021 End: 10-23-2021 ambulatory Chan Taylor Other [employer] Other Start: 10-23-2021 Telephone encounter Chan Taylor [facility] Start: 07-29-2021 End: 07-29-2021 ambulatory Chan Taylor Other [employer] Other Start: 07-29-2021 Office outpatient vi sit 25 minutes Chan Taylor [facility] Start: 04-23-2021 End: 04-23-[address] NIRAV CAIN Facility:[facility] Start: 04-16-2021 Office outpatient vi sit 25 minutes Gabriel Munoz Work Phone: [facility] 250 DO Work Phone: Start: 03-15-2021 Rx Renewal Rey alanis MD Work Phone: [facility] DO Work Phone: Start: 03-04-[address] NIRAV CAIN Facili ty:[facility]1 Start: 06-17-2017 End: 06-24-[address] [facility] Start: 05-31-2017 End: 06-06-[address] [facility] Start: 11-15-2016 End: 11-18-[address] [facility] Procedures Date Procedure Procedure Detail Performing Clinician Start: 12-08-2023 Screening colonoscopy D O Nirav Cain Work Phone: Start: 12-08-2023 Colonoscopy Rey [...] Start: 01-25-2023 Comprehensive metabo lic panel Corie Bonilal MD Work Phone: Start: 01-25-2023 History of cholecystectomy History of cholecystectomy Corie Bonilla MD Work Phone: Start: 01-10-2023 Laparoscopic cholecystectomy Marbin CEBALLOS Start: 09-30-2022 Plain chest X-ray DO Christen del real Ant Work Phone: Start: 02-18-[address] JEANINE CAIN Comment on above: Performed By: #### P SAD #### [facility] [address] [place] [address] Dr. Demetria Jain Start: 09-17-2020 Colonoscopy Marbin CLYDE YAO Comment on above: Colon polyp Start: 11-23-2016 Right shoulder arthroscopy with extensive glenohumeral debridement, subacromial decompression, mini-open rotator cuff repair Marbin FERNÁNDEZL Start: 07-11-2015 Rt/Lt Heart Catheterization Marbin FERNÁNDEZL Cardiac catheterization Gene las M Tammy Work Phone: Colonoscopy Marbin NILL Excision of basal ce ll carcinoma Marbin NILL Comment on above: nasolabial fold Hernia repair Gabriel M Hoy Work Phone: Laparoscopy Gabriel M Hoy Work Phone: Operation on skin Nirav Cain Work Phone: Operative procedure on foot Gabriel M Tammy Work Phone: Repair of right ingu inal hernia Marbin CEBALLOS Small intestine excision Jero CEBALLOS Tonsillectomy Gabriel Munoz Work Phone: Tonsillectomy Marbin CEBALLOS Total colonoscopy Gabriel Munoz Work Phone: Comment on above: august 30, 2020; Plan of Treatment Date Care Activity Detail Author Start: 12-07-2033 Screening for malignant neoplasm of colon [facility] Start: 08-09-2026 DTaP/Tdap/Td Vaccines (2 - Td or Tdap) DTaP/Tdap/Td Vaccines (2 - Td or Tdap) [facility] Start: 01-17-2025 End: 01-17-2025 Patient encounter procedure 01/17/2025 1:30 PM EDT Office Visit [facility] [address] [facility] [address] [place] [address] Rey Leiva DO [address] [facility] [address] [place] [address] [facility] Start: 01-01-2024 COVID-19 Vaccine ( season) COVID-19 Vaccine ( season) [facility] Start: 01-01-2024 COVID-19 Vaccine ( season) COVID-19 Vaccine ( season) [facility] Start: 01-01-2024 Influenza vaccination Influenza Vaccine (#1) [facility] Start: 12-08-2023 [facility] Start: 03-22-2023 [facility] Start: 01-27-2023 End: 01-27-2023 Admission to same day surgery center 01/27/2023 11:00 AM EDT - 01/27/2023 12:30 PM EDT Surgery [facility] OR [address] [place] [address] Rodolfo Hernandez MD [address] [facility] [address] [place], [place] [id number] ERCP ENDOSCOPIC RETROGRADE CHOLANGIOPANCREATOGRAPHY, STENT PLACEMENT (C-ARM) [facility] Comment on above: ERCP ENDOSCOPIC RETROGRADE CHOLANGIOPANC REATOGRAPHY, STENT PLACEMENT (C-ARM) Start: 01-27-2023 End: 01-27-2023 Ercp dx collection specimen brushing/washing ERCP ENDOSCOPIC RETROGRADE CHOLANGIOPANCREATOGRAPHY Bile duct leak 01/27/2023 11:00 AM [facility] Start: 01-27-2023 FUV, Provider: Rey Baca, Status: Pen, Time: 8:40 AM FUV, Provider: Rey Baca, Status: Pen, Time: 8:[address] [facility] Work Phone: Start: 11-30-2022 Influenza vaccination Flu vaccine (#1) [facility] Start: 11-23-2022 FUV, Provider: Rey Baca, Status: Pen, Time: 9:50 AM FUV, Provider: Rey Baca, Status: Pen, Time: 9:[address] [facility] Work Phone: Start: 2022 RSV patients and/or patients aged 60+ years (1 - 1-dose 60+ series) RSV patients and/or patients aged 60+ years (1 - 1-dose 60+ series) [facility] Start: 04-15-2022 FUV, Provider: Rey Baca, Status: Pen, Time: 3:30 PM FUV, Provider: Rey Baca, Status: Pen, Time: 3:30 PM [facility] DO Work Phone: Start: 01-13-2022 FUV, Provider: Rey Baca, Status: Pen, Time: 3:30 PM FUV, Provider: Rey Baca, Status: Pen, Time: 3:[address] [facility] Work Phone: Start: 04-02-2021 FUV, Provider: Rye Baca, Status: Pen, Time: 8:50 AM FUV, Provider: Rey Baca, Status: Pen, Time: 8:50 AM [facility] DO Work Phone: Start: 11-14-2020 COVID-19 Vaccine (3 - Moderna series) COVID-19 Vaccine (3 - Moderna series) [facility] Start: 08-30-[address] [facility] Start: 2012 Shingles vaccine (1 of 2) Shingles vaccine (1 of 2) [facility] Start: 10-15-2007 Screening for malignant neoplasm of colon [facility] Start: 1981 DTaP/Tdap/Td vaccine (1 - Tdap) DTaP/Tdap/Td vaccine (1 - Tdap) [facility] Start: 1980 Diabetes mellitus screening Diabetes Screening [facility] Start: 1980 Hepatitis C screening [facility] Start: 1977 HIV screening HIV screen [facility] Start: 1974 Depression Screen Depression Screen [facility] Start: 1972 Lipid panel Lipids [facility] Start: 10-15-1963 MMR Vaccines (1 of 1 - Standard series) MMR Vaccines (1 of 1 - Standard series) [facility] Start: 1962 Creatinine measurement Creatinine Level [facility] Start: 1962 HIV screening HIV Screening [facility] Start: 1962 Lipid panel Lipid Panel [facility] Start: 1962 Potassium measurement Potassium Level [facility] Start: 1962 Screening for malignant neoplasm of colon [facility] Start: 1962 Yearly Adult Physical Yearly Adult Physical [facility] Alternaria alternata IgE Ab [Units/volume] in Serum [facility] Guyanese house dust mite IgE Ab [Units/volume] in Serum [facility] Guyanese Albemarle Ig E Ab [Units/volume] in Serum [facility] Guyanese Albemarle Ig E Ab [Units/volume] in Serum [facility] Aspergillus fumigatu s IgE Ab [Units/volume] in Serum [facility] Bermuda grass IgE Ab [Units/volume] in Serum [facility] Boxelder IgE Ab [Units/volume] in Serum [facility] Cat dander IgG Ab [Units/volume] in Serum [facility] End: 01-27-2023 CBC W Auto Differential panel - Blood CBC with Auto Differential Lab Routine Daily for 3 Days starting 01/25/2023 until 01/27/2023, 2 completed [employer] Comment on above: Daily for 3 Days starting 01/25/2023 unt il 01/27/2023, 2 completed Cladosporium herbaru m IgE Ab [Units/volume] in Serum [facility] Cockroach IgE Ab [Units/volume] in [facility] Common Ragweed IgE A b [Units/volume] in [facility] End: 01-27-2023 Comprehensive metabolic 2000 panel - Serum or Plasma Comprehensive Metabolic Panel Lab Routine Daily for 3 Days starting 01/25/2023 until 01/27/2023, 2 completed [employer] Comment on above: Daily for 3 Days starting 01/25/2023 unt il 01/27/2023, 2 completed Wagoner IgE Ab [Units/volume] in Serum [facility] Culture, Blood 1 [employer] Dog dander IgE Ab [Units/volume] in [facility] house dust mite IgE Ab [Units/volume] in [facility] IgE [Units/volume] i n Serum or Plasma [facility] Intermittent pulse oximetry Pulse Oximetry Spot Check Respiratory Care Routine As Needed until discontinued starting 01/25/2023 [employer] Comment on above: As Needed until discontinued starting Mountain Juniper IgE Ab [Units/volume] in Serum [facility] Mouse urine proteins IgE Ab [Units/volume] in [facility] Oxygen therapy [[facility]ini [facility] Data Set] Initiate Oxygen Therapy Protocol Respiratory Care Routine As Needed until discontinued starting 01/25/2023 [employer] Comment on above: As Needed until discontinued starting Patient Education Diverticulosis (DC) Colon Polypectomy (DC) Know your Meds [facility] Work Phone: Pecan or [place] Pio e IgE Ab [Units/volume] in [facility] Penicillium notatum IgE Ab [Units/volume] in Serum [facility] Rough Pigweed IgE Ab [Units/volume] in Serum [facility] Saltwort IgE Ab [Units/volume] in Serum [facility] Sheep Onida IgE Ab [Units/volume] in Serum [facility] Sheep Onida IgE Ab [Units/volume] in Serum [facility] Silver Birch IgE Ab [Units/volume] in Serum [facility] Silver Birch IgE Ab [Units/volume] in Serum [facility] Benjy IgE Ab [Units/volume] in Serum [facility] [place] IgE Ab [Units/volume] in Serum [facility] White Konstantin IgE Ab [Units/volume] in Serum [facility] White Konstantin IgE Ab [Units/volume] in Serum [facility] White Elm IgG Ab [Units/volume] in Serum [facility] White mulberry IgE A b [Units/volume] in Serum [facility] White mulberry IgE A b [Units/volume] in Serum [facility] Republic IgE Ab [Units/volume] in [facility] Immunizations Immunization Date Immunization Notes Care Provider Fa [facility] 09-19-2020 Moderna COVID-19 Vaccine 100 MCG/0.5ML Intramuscular Suspension Gabriel Munoz Work Phone: [facility] [place] 08-22-2020 Moderna COVID-19 Vaccine 100 MCG/0.5ML Intramuscular Suspension Gabriel Stacey Munoz Work Phone: [facility] [place] 01-30-2019 pneumococcal polysaccharide vaccine, 23 valent Gabriel Stacey Munoz Work Phone: [facility] 250 DO Work Phone: NEGATED: Highlighted row has not occurred!07-12-2023 influenza virus vaccine, unspecified formulation Marbin CEBALLOS General Surgery [place] Payers Date Payer Category Payer Unknown [id number] 2022 Managed Care (Private) [facility] [id number] 2022 Private Health Insurance [facility] [id number] 2022-Present [address] [place] [address] [id number] 2022 Private Health Insurance [facility] [id number] 2020 Medicare [id number] 2020 Medicare [id number] [id number] 1962 Unknown [id number] 2.16840.1.805332.3.579. 2.593 1962 Unknown [id number] 2.16840.1.087861.3.579. 2.593 1962 Unknown [id number] 2.16.840.1.363189.3.579. 2.593 1962 Unknown [id number] 2.16.840.1.361554.3.579. 2.1068 1962 Unknown [id number] 2.16.840.1.713647.3.579. 2.356 1962 Unknown [id number] 2.16.840.1.168548.3.579. 2.356 1962 Unknown [id number] 2.16.840.1.347734.3.579. 2.356 1962 Unknown [id number] 2.16.840.1.374258.3.579. 2.175 1962 Unknown [id number] 2.16.840.1.594551.3.579. 2.718 1962 Unknown [id number] 2.16.840.1.019147.3.579. 2.718 1962 Unknown [id number] 2.16.840.1.346697.3.579. 2.718 1962 Unknown [id number] 2.16.840.1.461848.3.579. 2.1244 1962 Unknown [id number] 2.16.840.1.339169.3.579. 2.1244 1962 Unknown [id number] 2.16.840.1.899993.3.579. 2.727 1962 Unknown [id number] 2.16.840.1.892404.3.579. 2.727 1959 Self-pay 1959 Unknown [id number] 2.16.840.1.259534.19 Unknown Unknown [id number] 2.16.840.1.455899.3.579. 2.531 Unknown [id number] 2.16.840.1.953610.3.579. 2.531 Unknown [id number] 2.16.840.1.686463.3.579. 2.531 Unknown [id number] 2.16.840.1.550774.3.579. 2.531 Unknown [id number] 2.16.840.1.399116.3.579. 2.[address] [facility] [id number] Social History Date Type Detail Facility Start: 01-26-2023 End: 07-25-2023 Caffeine use Caffeine use [facility] 250 DO Work Phone: Comment on above: 1 pot decaf coffee d aily; quit 2006 minimal sm oker; 1 pot coffee daily; Start: 01-26-2023 End: 07-25-2023 Sex Assigned At Merino Russell [facility] Start: 09-01-2019 End: 01-09-2025 Tobacco smoking status NHIS Ex-smoker (finding) [facility] Start: 1960 Sex Assigned At Male F [facility] Tobacco smoking status Never Gener al Surgery [facility] Start: 01-26-2023 Tobacco smoking stat us MEIS Never smoked tobacco [employer] Work Phone: Start: 01-26-2023 End: 01-17-2024 Tobacco use and exposure Smokeless tobacco non-user [employer] Start: 1960 Sex Assigned At Not on file [employer] End: 05-02-2006 History of tobacco use Current smoker [facility] Work Phone: End: 05-02-2006 History of tobacco use Cigarette Smoker [facility] Work Phone: Start: 04-13-2024 Alcoholic beverage intake Current drinker of alcohol (finding) [facility] Work Phone: Start: 04-13-[address] [facility] Work Phone: Start: 01-07-2024 End: 04-13-2024 Exposure to SARS-CoV-2 (event) Not sure [facility] Start: 01-17-2024 Alcoholic beverage intake Lifetime non-drinker (finding) [facility] Work Phone: Start: 04-28-2015 End: 06-25-2024 Sex Male (finding) [facility] Sexual Orientation [facility] [place] Goals Date Patient Goal Desired Activity /State Functional Status Date Assessment Result Facility 08-02-2023 [facility] Status N/A [facility] Functional Status N/A General Chavis korey Christie 01-19-2023 Functional Status N/A [facility] Clinical Notes 02-25-2016 to 01-09-2025 Nicanor Rob Umesh, MANAGER MORTGAGE-TOOL GRINDING MACHINE OPERATOR - 04/13/2024 10:00 AM ESTPatient InstructionsKaidenjignesh Leiva, DO - 01/17/2024 2:30 PM EDTPatient Instructions Note Date & Type Note Facility 01-09-2025 Note General Surgery Offi ce/Clinic Note Chief Complaint consultation for hernia HPI Staff 64 year old male presents on consultation from Dr. Munoz for supraumbilical hernia. Patient with history of incisional hernia repair completed 08/2023. Reports noting recurrent bulge in similar area around May of this year after significant coughing episode. Verbalized bulge is reducible but does not stay reduced. Denies bulge being red. Denies nausea, vomiting or bowel changes. No imaging completed. Patient on Plavix. History of Present Illness 64 yo male with h/o CAD, htn, hypercholesterolemia, CVA, asthma, morbid obesity, presents for evaluation of abd bulge; had supraumbilical incision hernia repaired 08/2023, robotic-assisted IPOM with 9 x 7 cm Symbotex mesh insertion; noticed bulge 05/2024 after respiratory illness and protracted coughing spells; has noticed bulge when straining, in midline, no skin changes, no N/V or bowel changes; slight increase over last several months; no imaging; on Plavix, no asa or NSAID use; no tobacco use. Review of Systems PHQ [...] noncontributory. Physical Exam Vitals & Measurements HR: 76(Peripheral) RR: 16 BP: 138/70 HT: 71 in HT: 180 cm WT: 261.027 lb WT: 118.4 kg BMI: 36.54 Respiratory: lungs expiratory wheezes, respirations non labored. Cardiovascular: regular rate and rhythm, no murmur, no pedal edema or varicosities. Gastrointestinal: obese, soft, non distended, mild tenderness, supraumbilical midline; weakness in midline/diastasis in supraumbilical area, no discreet fascial defect noted or hernia sac, no skin changes, no masses, no palpable hernias, diastasis recti yes, no hepatosplenomegaly; normal bs Musculoskeletal: normal gait, digits and nails without infection, nodes, cyanosis, clubbing. Skin: no rashes, no lesions, no ulcers, no subcutaneous nodules, induration. Psychiatric/Neuro: oriented to time, place, person, judgement normal, affect appropriate for age, insight intact, no focal deficits. Tests:, review of old records completed , Assessment/Plan 1. Epigastric pain (R10.13: Epigastric pain) will obtain abd/pelvic ct scan with contrast at [facility] for further evaluation of pain, possible recurrent hernia; will call patient with results; he is to call sooner if problems/questions. Ordered: Creatinine CT Abdomen/Pelvis w/ Contrast E&M of Est. Patient Moderate 30-39 Min 06336 2. History of incisional hernia repair (Z98.890: Other specified postprocedural states) see # 1 Ordered: Creatinine CT Abdomen/Pelvis w/ Contrast E&M of Est. Patient Moderate 30-39 Min 03610 3. Diastasis recti (M62.08: Separation of muscle (nontraumatic), other site) see # 1 Ordered: Creatinine CT Abdomen/Pelvis w/ Contrast E&M of Est. Patient Moderate 30-39 Min 37899 Personal history of other diseases of the digestive system (Z87.19: Personal history of other diseases of the digestive system) Follow-up No qualifying data available Problem List/Past Medical History Ongoing Asthma BMI 36.0-36.9,adult Chronic obstructive pulmonary disease Combined systolic and diastolic dysfunction Coronary atherosclerosis Diastasis recti Epigastric pain Familial eosinophilia History of basal cell carcinoma History of CVA (cerebrovascular accident) History of incisional hernia repair Hypercholesterolemia Hypertensive disorder Morbid obesity Prediabetes Historical Acute gangrenous cholecystitis Cardiomyopathy Chronic obstructive lung disease COPD (chronic obstructive pulmonary disease) History of TIA (transient ischemic attack) HTN (hypertension) Incisional hernia Obesity Plantar fasciitis Procedure/Surgical History Repair of incisional hernia (09/14/2023), Laparoscopic cholecystectomy (01/10/2023), Colono (more content not included)... [facility] Comment on above: Result Comment: Elec tronically Signed By: LIN FENTON, Marbin Chaudhari\Date and Time Signed: 01/09/25 14:18 EDT 01-09-2025 Evaluation + Plan note Diagnostic Tests PendingCreatinine 01/09/25 [facility] General Surgery [place] 04-15-2024 Note Entered by CHRISTEN CAIN DO on April 15, 2024 20:01:50 EST From: NIRAV CAIN DO To: [facility] #[id number] Sent: 04/15/2024 20:01:50 EST Subject: Medication Management [...] 2 Substitutions Allowed Route To Pharmacy - [facility] #[id number] Note from Pharmacy: ZERO refills remain on this prescription. Your patient is requesting advance approval of refills for this medication to PREVENT ANY MISSED DOSES From: [facility][id number] To: NIRAV CAIN DO Sent: April 14, 2024 7:06:00 AM MASTER MOTORCYCLE TECHNICIAN Subject: Medication Management Due: April 15, 2024 12:18:58 AM MASTER MOTORCYCLE TECHNICIAN On Hold Pending Signature Dispensed Drug: busPIRone (busPIRone 15 mg oral tablet), TAKE 1 TABLET BY MOUTH THREE TIMES DAILY Quantity: 90 tab(s) Days Supply: 30 Refills: 0 Substitutions Allowed Notes from Pharmacy: ZERO refills remain on this prescription. Your patient is requesting advance approval of refills for this medication to PREVENT ANY MISSED DOSES [facility] 04-13-2024 History of Present illness Narrative [...] cuff that he has obtained from the [place] [facility]. Systolic blood pressure ranges in the [...] Dr. Leiva as scheduled Nicanor Calvo MSN, MANAGER MORTGAGE-TOOL GRINDING MACHINE OPERATOR, PMHNP-[facility] [place], [place] Please excuse any errors in grammar or translation related to this dictation. Voice recognition software was utilized to prepare this document. documented in this encounter [facility] Work Phone: 04-13-2024 Instructions YOSSI Brewer - 04/13/2024 10:00 AM EST Please [...] Leiva as scheduled documented in this encounter [facility] Work Phone: 02-03-2024 Note Entered by CHRISTEN CAIN DO on February 03, 2024 12:40:56 EDT From: NIRAV CAIN DO To: [facility] #[id number] Sent: 02/03/2024 12:40:56 EDT Subject: Medication Management Submitted: Complete:busPIRone (busPIRone 10 mg oral tablet) Signed by NIRAV CAIN DO 02/03/2024 12:40:00 EDT Approved with modifications: busPIRone (BUSPIRONE 10MG TABLETS) TAKE 1 TABLET BY MOUTH TWICE DAILY Qty: 60 tab(s) Days Supply: 30 Refills: 2 Substitutions Allowed Route To Pharmacy - [facility] #[id number] From: [facility] #[id number] To: NIRAV CAIN DO Sent: February 03, 2024 10:40:51 AM CDT Subject: Medication Management Due: February 04, 2024 12:01:54 AM CDT On Hold Pending Signature Dispensed Drug: busPIRone (busPIRone 10 mg oral tablet), TAKE 1 TABLET BY MOUTH TWICE DAILY Quantity: 60 tab(s) Days Supply: 30 Refills: 0 Substitutions Allowed Notes from Pharmacy: [facility] 01-17-2024 History of Present illness Narrative [...] has known ASHD from heart catheterization at [facility] many years ago with Dr. Martinez, treated [...] Scribe Attestation By signing my name below, I, Sera Bella LPN Scribe attest that this documentation has been [...] discussion and plan. documented in this encounter [facility] Work Phone: 01-17-2024 Instructions Sera Chiu LPN [...] Increase physical activity. documented in this encounter [facility] Work Phone: 12-26-2023 Evaluation note Authored December 26, 2023 2: 54pm Time spent on patient 30+ mi nutes, spent time on phone with patient in the office trying to reach claims department @ [facility]. [facility] Work Phone: 1(339) 682-965808-08-2024 History and physical note Author Harriet Galicia [facility] December 08, 2023 7:59am Note Date/Time December 08, 2023 7:5 9am [facility] [address] [place] [address] Gastroenterology H&P Signed Patient: Abraham Harry MR#: [id number] : 1960 Acct:[id number] Age/Sex: 63 / M Adm Date: 4 Loc: Room: Type: [facility] Attending Dr: Harriet Galicia DO Copies to: Harriet Galicia, DO Nirav Cain DO~ Date of Service: 12/08/2023 HISTORY & [...] By: <Electronically signed by Harriet Galicia DO> 12/08/239 [facility] Work Phone: 1(917) 230-688708-08-2024 [facility] + Plan note Diagnostic Tests Pending * Creatinine 07/12/23 General Surgery [place] 11-21-2023 Evaluation note* Encounter Date Diagnosis Assessment Notes Treatment Notes Treatment Clinical Notes Mar, Asthma with COPD (ICD-10 - J44.9) please arrange for dupixent if qualified [facility] Other 11-21-2023 Evaluation note* Encounter Date Diagnosis Assessment Notes Treatment Notes Treatment Clinical Notes Mar, Asthma with COPD (ICD-10 - J44.9) please arrange for dupixent if qualified Mar, Severe persistent asthma without complication (ICD-10 - J45.50) [facility] Other 09-27-2023 History of Present illness Narrative* Talia - 01/26/2023 5:38 PM EDT CLINICAL PHARMACY NOTE: MEDS TO BEDS Total # of Prescriptions Filled: 1 The following medications were delivered to the patient: cephalexin Additional Documentation: Pt signed form- filed sheet * Sariah Nichols MD - 01/26/2023 12:10 PM EDT Images from the original note were not included. [facility] Office: [phone] Rajat Worley DO, Nirav Leiva DO, Siva [...] MD, Jaylon Galaviz MD, Chadd Mcmanus MD,Cass Granado CNP, Billie Hilliard CNP,, Abraham Foote CNP, Radha Arredondo, SRINI, Keke Spencer TOOL GRINDING MACHINE OPERATOR, Ni Kowalski TOOL GRINDING MACHINE OPERATOR, Jeana Carrizales CNP, Milly Harrell TOOL GRINDING MACHINE OPERATOR, Arleen Panchal TOOL GRINDING MACHINE OPERATOR, Elvira Godwin TOOL GRINDING MACHINE OPERATOR, Edelmira Catalan, CEMETERY KEEPER, Maribeth Oswald, TOOL GRINDING MACHINE OPERATOR, Lisa Pacheco, TOOL GRINDING MACHINE OPERATOR [facility] IN-PATIENT SERVICE [facility] Progress Note 01/26/2023 1:43 PM Name: Abraham Harry Acct: [id number] Room: [facility]0345-02 Day: 1 Admit Date: 01/25/2023 6:20 PM [...] hypertension, hypercholesterolemia, questionable CAD (patient follows with real time trader because of sudden cardiac of his father at the age of 44 due to cardiac aneurysm and he said that real time trader mentioned to him that he has some changes at the bottom of his heart that need to be monitored ), stroke 2020 on clopidogrel not on aspirin, cholecystectomy and bowel resection for acute necrosis done by Dr. Ceballos on 01/10. Patient presented to [place] ED for acute onset abdominal pain that [...] didshow nephrolithiasis. Discussed with GI team at [facility], transferring patient for possible CBD stone [...] , PHART , PH , POCPCO2 , JQF7CPL , PCO2 , POCPO2 , PO2ART , PO2 , POCHCO3 , LIF3RKO , HCO3 , NBEA , PBEA , BEART , BE , THGBART , THB , EKH1CTQ , LADE8XIZ , C2TNFLNN , O2SAT , FIO2 Lab Results Component [...] of bowel resection 01/25/2023 Yes Plan: Abdominal axhg-sxlzrppq-epgwuerer concern for nephrolithiasis -patient thinks that he [...] MD 01/26/2023 1:43 PM [facility] Discharge instructions* Discharge Instructions* Sariah Nichols MD - 01/26/2023 1:41 PM EDT Do not take atorvastatin/Lipitor for 1 week. Follow-up with PCP Check BP before taking meds [facility] Evaluation note* Encounter Date Diagnosis Assessment Notes Treatment Notes Treatment Clinical Notes Oct, Asthma with COPD (ICD-10 - J44.9) [facility] Other 03-30-2022 Evaluation note* Encounter Date Diagnosis Assessment Notes Treatment Notes Treatment Clinical Notes Jun, Asthma with COPD (ICD-10 - J44.9) Jun, Coronary artery disease involving [place] heart, unspecified vessel or lesion type, unspecified whether angina present (ICD-10 - I25.10) Jun, Orthostatic lightheadedness (ICD-10 - R42) [facility] Other 07-01-2017 History general Narrative - Reported* Type Description Date Medical History COPD Medical History heart disease Medical History congestive heart failure Medical History asthma Surgical History rotator cuff tear repair 10/2016 Surgical History Foot Surgery 2016 Surgical History hernia repair 2014 Hospitalization History See Above [facility] Other 10-26-2016 History of Present illness Narrative* Patient returns in follow-up of problems as noted. In the interim he has begun to develop anginal chest pain. He describes retrosternal pain brought about by aerobic activity and relieved with rest. Review of chart demonstrates that he had a coronary angiogram 7 years ago in [facility] where he had moderate disease treated medically. [...] proceed with stress testing and follow-up thereafter. [facility] [employer] Phone: Evaluation + Plan note No data available for this section General Surgery [place] Evaluation + Plan note Future Appointments Appointment Date:10/05/2023 04:00:00 PM Scheduled Provider:Marbin CEBALLOS MD Location:[facility] Appointment Type:GS Post Op 15 [facility] Surgery [place] Evaluation + Plan note Future Appointments Appointment Date:01/09/2025 01:40:00 PM Scheduled Provider:Marbin CEBALLOS MD Location:[facility] Appointment Type:GS Established 15 [facility] General Surgery [place] Evaluation noteNo InformationNort [place] [employer] Other Evfbohkrhu noteNo assessment information available [facility] Work Phone: evaluation note* Diagnosis Abdominal pain- Primary Abdominal pain, [...] of biliary tract [facility] Diagnosis Onset Date Resolution Status Asthma, severe persistent ac [place] [facility] Work Phone: evaluvzonz note* Diagnosis Essential hypertension Unspecified essential hypertension documented in this encounter [facility] Work Phone: Evaluation note* Diagnosis ASHD (arteriosclerotic heart disease) Coronary atherosclerosis of unspecified type of vessel, [place] or graft Chronic obstructive pulmonary disease, unspecified COPD type (Multi) Essential hypertension Unspecified essential hypertension Hyperlipidemia, unspecified hyperlipidemia type Cerebrovascular accident (CVA), unspecified mechanism (Multi) BMI 37.0-37.9, adult Former smoker Personal history of tobacco use, presenting hazards to health documented in this encounter [facility] Work Phone: Evaluation note* Diagnosis Onset Date Resolution Status Admit Date History of tobacco abuse acute February 24th, 2025 2:30pm retirement (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 inhaled steroids acute June 25, 2024 2:30pm Peripheral eosinophilia acute F ebruary 2024 2:30pm Severe persistent asthma, uncomplicated acute June 25 025 2:30pm [facility] Work Phone: History of Present illness [...] diet lifestyle modification exercise and weight loss. [facility] DO Work Phone: History of [...] before without change and follow-up next year. -[facility] [address] DO Work Phone: Hospital Discharge instructions No data available for this section General Surgery [place] Progress note No data available for this section General Surgery [place] Reason for referral (narrative)* Consultation (Routine) - Authorized Specialty Diagnoses / Procedures Referred By Contsusan t Referred To Contact Cardiology Diagnoses Essential hypertension Procedures Follow Up In Cardiology Cali Rey Carlos, DO [address] [facility] 2, [place] [address] [place] [id number] Nicanor Calvo, MANAGER MORTGAGE-TOOL GRINDING MACHINE OPERATOR [address] [facility] 2, [address] [address] Referral ID Status Reason Start Date Expiration Date V isits Requested Visits Authorized [id number] Authorized 01/17/2024 01/16/2025 1 1 * Consultation (Routine) - Authorized Specialty Diagnoses / Procedures Referred By wDayne machuca Referred To Contact Cardiology Diagnoses ASHD (arteriosclerotic heart disease) Procedures Follow Up In Cardiology Rey Leiva, DO [address] [facility] 2, [address] [address] Rey Leiva, DO [address] [facility] 2, [place] [id number] Referral ID Status Reason Start Date Expiration Date V isits Requested Visits Authorized [id number] Authorized 01/17/2024 01/16/[address] 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: 3 mo f/u Asthma June 25, 2024 2:30pm Reason for Visit Admit Date History of tobacco abuse June 25, 2024 2:30pm retirement (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 inhaled stero ids June 25, 2024 2:30pm Peripheral eosinophilia June 25 025 2:30pm Severe persistent asthma, uncomplicated June 25, 2024 2:30pm Additional Source Comments (unrecognized sect ion and content) No Status Records FoundNo Status Records FoundNo Status Records FoundNo Status Records FoundNo Status Records FoundNo Status Records FoundNo Status Records FoundNo Status Records FoundNo Status Records FoundNo Status Records FoundNo Status Records Found INFORMATION SOURCE (unrecogn ized section and content) DATE CREATED AUTHOR 10/21/2017 [facility] DATE CREATED AUTHOR AUTHOR'S ORGANIZ ATION 04/08/2020 [facility] DATE CREATED AUTHOR AUTHOR'S ORGANIZ ATION 02/22/2022 [facility] DATE CREATED AUTHOR AUTHOR'S ORGANIZ ATION 01/08/2023 [facility] DATE CREATED AUTHOR AUTHOR'S ORGANIZ ATION 02/03/2023 [facility] ical [facility] DATE CREATED AUTHOR AUTHOR'S ORGANIZ ATION 02/03/2023 [facility] DATE CREATED AUTHOR AUTHOR'S ORGANIZ ATION 02/11/2023 [facility] DATE CREATED AUTHOR AUTHOR'S ORGANIZ ATION 01/19/2024 [facility] DATE CREATED AUTHOR AUTHOR'S ORGANIZ ATION 06/27/2024 [facility] DATE CREATED AUTHOR AUTHOR'S ORGANIZ ATION 12/25/2024 [facility] DATE CREATED AUTHOR AUTHOR'S ORGANIZ ATION 01/11/2025 [facility] REASON FOR VISIT (unrecogniz ed section and content) Reason Comments Dizziness 3m bp/orthos Specialty Diagnoses / Procedures Referred By Contac t Referred To Contact Cardiology Diagnoses Essential hypertension Procedures Follow Up In Cardiology Rey Leiva, [address] [facility] 2, [address] [address] Phone: tel: fax: Nicanor Calvo, MANAGER MORTGAGE-TOOL GRINDING MACHINE OPERATOR [address] [facility] 2, [address] [place] [address] Phone: tel: fax: Referral ID Status Reason Start Date Expiration Date V isits Requested Visits Authorized [id number] Authorized 01/17/2024 01/16/2025 1 1 Care Teams [...] Member Role Status Dates Jacqueline Anthony APRN [facility] Attending Provider Active Start: September 19, 2023 End: September 19, 2023 Nirav Cain DO Primary Care Provider Active Start: September 19, 2023 End: September 19, 2023 DME Active Start: August End: September 19, 2023 Team Status: Inactive Member Role Status Dates Nirav aCin DO Primary Care Provider Active Start: December 08, 2023 End: December 08, 2023 Harriet Galicia , Attending Provider Active St art: December 08, 2023 End: December 08, 2023 Team Status: Active Member Role Status Dates Nirav Cain DO Primary Care Provider Active Start: December 08, 2023 Harriet Galicia , Attending Provider, Other Provider Active Start: December [...] January 17, 2024 End: January 17, 2024 Food Service Manager Relationship Specialty Start Date End Date Nirav Cain DO PCP - General 04/15/22 Food Service Manager Relationship Specialty Start Date End Date Nirav Cain DO PCP - General 04/15/22 Team Status: Active [...] 1550 (Not Given - Provider: Lisa Butler, LAITH - Reason: Patient/family refused) enoxaparin [...] Su RN - Reason: Medication not available) 1016 (Not Given - Provider: Lisa Butler RN [...] refused) 1017 (Not Given - Provider: Lisa Butler, LAITH - Reason: Patient/family refused)2100 (Due) HYDROmorphone (DILAUDID) [...] Butler, RN)1947 (Due: Stopped - Provider: Lisa Butler, RN)2130 (Due) sodium chloride flush 0.9 % [...] volume of compatible solution (NS or D5W). 115 (Given - Provid er: Lisa Butler RN) [...] hour of each other unless specifically ordered. 1899 (Given - Provider: Ruby Harper RN)2239 (Given - Provider: Elvira Su RN) ondansetron [...] Oral, DAILY PRN, Starting on Tue01/25/23 at 183, Until Discontinued, Constipation, First line therapy for constipation potassium bicarb-citric acid (EFFER-K) effervescent tablet 40 mEq(Linked Group 4) 40 mEq, Oral, PRN, Starting on Tue01/25/23 at 183, Until Discontinued, Per Potassium Replacement Protocol, Administer [...] mEq, Oral, PRN, Starting on Tue01/25/23 at 183, Until Discontinued, Potassium Replacement, May give oral [...] BE BASED ON THE PRIMARY CLINICAL RECORDS. [employer] provides no warranty or guarantee of the accuracy or completeness of information in this document.
--- NOTE | 2025-01-15 07:13 | CT_ITS ---
The [address] [address] Patient Name: ALMA HARRY MRN: [id number] date: 1960 Sex: M Assigned Patient Location: LAB Current Patient Location: LAB Accession/Order Number: [id number] Exam Date: 01/15/2025 08:50 Report Date: 01/15/2025 10:47 At the request of: CASSY CEBALLOS MD Procedure: CT abdomen pelvis w con CT ABDOMEN AND PELVIS WITH CONTRAST COMPARISON: 07/21/2023 CLINICAL DATA: Epigastric pain. Surgical planning for ventral hernia repair. Spiral images were obtained through the abdomen and pelvis with Valsalva following oral and 100 mL of Omnipaque 300. This CT exam was performed using one or more following dose reduction techniques: Automated exposure control, adjustment of the mA and/or kV according to patient size, or use of iterative reconstruction technique. Limited cuts through the lung bases show minimal scarring or atelectasis. Coronary artery disease is seen. There is fatty infiltration of the liver. No intrahepatic masses are noted. The gallbladder surgically absent. No biliary dilatation or common duct stones are seen. The spleen, pancreas and adrenal glands show no acute findings. There is minor bilateral perinephric fibrofatty stranding. The renal nephrograms are symmetric. No hydronephrosis is visualized. A stone is present at the lower pole of the left kidney measuring approximately 8 mm in size. There is also a tiny stone at the midpole on the right measuring 3 mm. The abdominal aorta is normal caliber. There is minimal aortic, iliac and visceral plaque. There are small periportal and mesenteric lymph nodes. No ascites is seen. Small bowel loops are not distended. There is mild colonic stool, greater on the right. Left-sided colonic diverticula are seen. There is no appendiceal inflammation. Subtle levoscoliotic curvature and endplate spurring are visualized at the spine. Images through the pelvis show a supraumbilical ventral hernia containing a knuckle of nondistended small bowel. The opening is approximately 4.5 cm in width. There is a second tiny separate hernia containing fat just above it with opening of approximately 1.5 cm. There are normal caliber small bowel loops. The distal colon contains a small amount of stool. There are colonic diverticula, without associated active inflammation. The prostate is not enlarged. No urinary bladder abnormalities are visualized. No free fluid is seen. CT/CT abdomen pelvis w con IMPRESSION: SUPRAUMBILICAL VENTRAL HERNIAS, THE LARGER CONTAINING NONOBSTRUCTED SMALL BOWEL. FATTY LIVER. BILATERAL NONOBSTRUCTING RENAL STONES. DIVERTICULOSIS. Impression dictated by: Marisela Galo M.D. 01/15/2025 10:47 AM Dictation Location: [place] [address] Electronically authenticated by: [id number] Y Date: 01/15/2025 10:47
[2025-01-15 07:20] LABS: Estimated GFR (African America >60 (>=60 mL/min/1.73m^2); Estimated GFR (Non-African Ame >60 (>=60 mL/min/1.73m^2)
== END 2025-01-15 07:03 | disposition home or self-care (01) ==
LOC: LAB 07:02
PROVIDERS: PCP Family Medicine; Visit Provider Surgery
DX: R10.13 Epigastric pain (principal); Z98.890 Other specified postprocedural states; M62.08 Separation of muscle (nontraumatic), other site; K43.9 Ventral hernia without obstruction or gangrene; K76.0 Fatty (change of) liver, not elsewhere classified; K57.30 Diverticulosis of large intestine without perforation or abscess without bleeding
CPT/HCPCS: 36415; 74177; 82565; Q9967

== ENCOUNTER 2025-04-09 14:04 | Outpatient (OUT) | payer OTHER, SELFPAY ==
--- OUTSIDE RECORDS SUMMARY | 2025-04-09 14:09 | XMS_ITS | CCD ---
Author Organization [facility] Care Team Providers Care Manager Dairy Name Role Phone JB, SUKHWINDER Unavailable Unavailable POCRYLAN DICKSON Unavailable Unavailable HAMPOLE, SUKHWINDER Unavailable Unavailable HOUSE SR, NIRAV MARIA Unavailable Unavai lable HAMPOLE, SUKHWINDER Unavailable Unavailable HOUSE SR, NIRAV MARIA Unavailable Unavai lable Unavailable Unavailable Beth Phelps Unavailable Chan Taylor Unavailable ANT, DR GASTELUM [...] Unavailable DO Nirav Cain Primary Care Provider [phone] MD Chan Taylor Attending Provider [phone] Ant, Dr. Nirav Maria Primary Care Unava [...] Attending Unavailable SARIAH NICHOLS Attending Unavailable JAMIA DEL VALLE Consulting Unavailable PAYAMADOU Referring Unavailable MAGDALENA SARIAH Admitting Unavailable House, DO Gastelum Primary Care Provider [phone] MD Chan Taylor Attending Provider NIRAV CAIN Primary Care Physician MD Marbin Ceballos Attending Provider [phone] DO Nirav Cain Primary Care Provider Ly, DO Harriet L Attending Provider Samsa, Saleem P Attending Provider Nirav Cain Primary Care Unavailable Samsa, Saleem P Admitting Unavailable Samsa, Saleem P Attending Unavailable Ant, Nirav Primary Care Unavailable Chaban, Kamal Admitting Unavailable Chameng, Chan Attending Unavailable Ant, Nirav Primary Care Unavailable Brandon, Chan Admitting Unavailable Brandon, Chan Attending Unavailable Ant, Nirav Primary Care Unavailable Harriet Galicia Admitting Unavailable Harriet Galicia Attending Unavailable Nillarry, Marbin R Admitting Unavailable Nillarry, Marbin R Attending Unavailable House Nirav LADD Primary Care Provider NIRAV CAIN Primary Care Unavailable HOUSE, NIRAV P Attending Unavailable HOUSE, DO NIRAV P Attending Unavailable HOUSE, NIRAV P Primary Care Unavailable HOUSE, DO NIRAV P Attending Unavailable HOUSE, NIRAV P Primary Care Unavailable Beth Phelps Primary Care Physician Beth Phelps Referring Unavailable Marbin CEBALLOS Attending Unavailable Marbin CEBALLOS Attending Unavailable Beth Phelps MD Primary Care Provider REY LEIVA Attending Unavailable REY LEIVA Referring Unavailable BETH PHELPS Primary Care Unavailable NICANOR CALVO Attending Unavailable REY LEIVA Referring Unavailable NIRAV CAIN Primary Care Unavailable Kaleb Eaton DDS Attending Unavailable Beth Phelps MD Primary Care Unavailable Kaleb Eaton DDS Unavailable Unavailable MASON CLINE Attending Unavailable ROBERT FUNEZ Referring Unavailable Allergies Allergy ClassificationReported Allergen(s)Allergy TypeDate of OnsetReaction(s) Facility (8 sources)Adhesive Tape; Translations: [Tape][facility] ([facility])No Known Medication Allergies; Translations: [No Known Medication Allergies]Propensity to adverse reactions to drug (disorder)[facility] (1 source)ADHESIVE TAPE-SILICONES; Translations: [ADHESIVE TAPE-SILICONES] Propensity to adverse reactions to drug (disorder)[phone] Medications Current Medications MedicationDrug Class(es)DatesSig (Normalized)Sig (Original)Acetaminophen (1 source)Start: 48-59-0488pritgygipxwyi (TYLENOL) tablet 650 mgAlbuterol (20 sources)beta2-Adrenergic AgonistStart: 16-56-5654tjhd 2 puff(s) by inhalation every four hoursAlbuterol (Eqv-ProAir HFA) 2 puff(s), Inhalation, q4hr Shortness of breath or wheezing, Refill(s) 0Start Date: 12/21/24 Status: Ordered Repeat number: 1Start: 47-36-3366Yxwqwugdv Sulfate 2.5 mg /3 mL (0.083 %) solution for nebulization Active 2.5 MG CNTNEBULIZ Four times daily as needed for Shortness Of Breath December 26, 2023 1:03pmStart: 05-50-7315vcvg 2.5 mg by inhalation every six hoursalbuterol 0.083% Inh Daniella 3 mL 2.5 mg, 3 mL, NEB, q6hr Shortness of breath or wheezing, Refill(s) 0 Start Date: 07/07/23 Status: Ordered Repeat number: 1Start: .5 mg, Nebulization, EVERY 4 HOURS PRN, Starting on Tue01/26/23 at 1341, Until Discontinued, Wheezing Initiate RT Bronchodilator Protocol: Yes - Inpatient ProtocolStart: 89-04-9070ydxtsxiln (ProAir HFA) 90 mcg/actuation inhaler Inhale. As needed 11/25/2020 ActiveStart: 12-90-8559HkdFqq HFA 108 (90 Base) MCG/ACT AERS as needed Quantity: 0 Refills: 0 Ordered: 17-Feb-2021 DO Start : 25-Nov-2020 ActiveStart: 76-93-6093dtcljmbqz 2.5 mg /3 mL (0.083 %) nebulizer solution Inhale every 6 hours if needed. 09/16/2020 ActiveStart: 08-42-3943dmma 1 puff(s) by inhalation every six hours as needed Albuterol Sulfate 90 mcg/actuation HFA aerosol inhaler Active 2 PUFF INHALATION Q6H as needed for Shortness Of Breath August 30, 2019 11:00pmStart: 08-31-2019 End: 07-73-0935Lkptamsyl Sulfate 2.5 mg /3 mL (0.083 %) solution for nebulization Discontinued 1 VIAL CNTNEBULIZ Twice daily August 30, 2019 11:00pm December 26, 2023 1:04pmStart: 08-27-6078Rgerfxxhh Sulfate Active 1 VIAL CNTNEBULIZ Q6H August 31, 2019 12:00amStart: 89-01-5510DqiSql HFA See Instructions, Inhalation, q6hr Shortness of breath or wheezing, Refill(s) 0 Start Date: 07/08/15 Status: OrderedAlbuterol Sulfate (2.5 MG/3ML) 0.083% 1 unit dose Inhalation four times a day DX J44.9 COPD Activealbuterol (PROVENTIL) (2.5 MG/3ML) 0.083% nebulizer solution Take 3 mLs by nebulization daily 0 Activetake 2 puff(s) by inhalation every four hours as neededProAir HFA 108 (90 Base) MCG/ACT 2 puffs as needed Inhalation every 4 hrs ActiveAspirin 81 mg Tab-EC (5 sources)Start: 83-33-5466dawp 1 tablet by mouth once dailyAspirin 81 mg Tab- EC 81 mg = 1 tab(s), Oral, Daily, Refills(s) 0, Blood Thinner Start Date: 07/08/15 Status: Orderedatorvastatin 80 mg oral tablet (20 sources)HMG-CoA Reductase InhibitorStart: 09-01-2019 End: 46-79-1763wmwb 1 tablet by mouth once dailyatorvastatin (Lipitor) 80 mg tablet Indications: Hyperlipidemia, unspecified hyperlipidemia type Take 1 tablet (80 mg) by mouth once daily. 90 tablet 3 01/17/2024 ActiveStart: 08-31-2019 End: 53-43-2330ymnk 1 tablet by mouth once daily in the eveningAtorvastatin (Lipitor) 40 mg Tablet Discontinued 40 MG PO Every evening August 30, 2019 11:00pm September 01, 2019 10:57am1 ml benralizumab 30 mg/ml auto-injector (5 sources)Interleukin-5 Receptor alpha-directed Cytolytic AntibodyStart: 36-62-0210Fhxrlbn Pen 30 mg/mL subcutaneous solution as directed, Refills(s) 0 Start Date: 12/21/24 Status: Ordered Repeat number: 1Start: 02-09-2024 End: 86-93-1998Lbrsmttyqcxm (Fasenra Pen) 30 mg/mL auto-injector Discontinued 30 MG SUBCUT EVERY 4 WEEKS 4 90 February 13, 2024 8:27am February 13, 2024 8:30am 30mg/1 ml SQ monthly x 3 doses , then 30mg/1 ml every 8 weeks DX J45.50 benralizumab (FASENRA SUBQ) (2 sources)inject 1 dose by subcutaneous injection every 30 daysbenralizumab (FASENRA SUBQ) Inject 1 Dose under the skin every 30 (thirty) days. Active budesonide 0.25 mg/ml inhalation suspension (3 sources)CorticosteroidStart: 12-70-8890etkh 2 mL by inhalation twice daily Budesonide 0.5 MG/2ML 2 ml Inhalation Twice a day for 30 day(s) Mar, ActivebusPIRone hydrochloride 15 mg oral tablet (9 sources)Start: 41-89-2821losq 1 tablet by mouth three times daily as needed for anxietybusPIRone 15 mg Tab 15 mg = 1 tab(s), Oral, TID, PRN anxiety, Refills(s) 0 Start Date: 12/21/24 Status: Ordered Repeat number: 1Start: 69-34-8831zqhv 1 tablet by mouth every twelve hoursbusPIRone (Buspar) 10 mg tablet Take 1 tablet (10 mg) by mouth every 12 hours. 01/09/2024 ActiveStart: 12-26-2023 End: 53-08-7844hmiz 1 tablet by mouth twice dailyBuspirone 10 mg tablet Discontinued 10 MG PO Twice daily December 25, 2023 11:00pm March 26, 2024 2:10pmcephalexin 500 mg oral capsule (3 sources)Cephalosporin AntibacterialStart: 01-26-2023 End: 94-86-0276necv 1 capsule by mouth three times dailycephALEXin (KEFLEX) 500 MG capsule Take 1 capsule by mouth 3 times daily for 3 days 9 capsule 0 01/0101/29/2023 Activecholecalciferol 0.125 mg oral tablet (18 sources)Vitamin DStart: 71-12-0210lrsm 1 tablet by mouth once daily in the morningCholecalciferol (Vitamin D3) (Vitamin D3) 125 mcg (5,000 unit) Tablet Active 125 MCG PO Every morning August 30, 2019 11:00pmtake 1 capsule by mouth once dailycholecalciferol (Vitamin D-3) 125 MCG (5000 UT) capsule Take 1 capsule (125 mcg) by mouth once daily. Activeclopidogrel 75 mg oral tablet (20 sources)P2Y12 Platelet InhibitorStart: 09-01-2019 End: 72-21-0497ksvj 1 tablet by mouth once dailyclopidogrel (Plavix) 75 mg tablet Indications: Cerebrovascular accident (CVA), unspecified mechanism (Multi) Take 1 tablet (75 mg) by mouth once daily. 90 tablet 3 01/17/2024 01/17/2025 Activecodeine phosphate 2 mg/ml / promethazine hydrochloride 1.25 mg/ml oral solution (7 sources)Opioid Agonist, PhenothiazineStart: 40-05-2454tklq 5 mL by mouth every six hours as neededPromethazine-Codeine 6.25-10 MG/5ML 5 ml as needed Orally every 6 hrs Jun, Activefamotidine (PEPCID) 20 mg in sodium chloride (PF) 0.9 % 10 mL injection (1 source)Start: 80-43-6106hqrkokszzi (PEPCID) 20 mg in sodium chloride (PF) 0.9 % 10 mL injectionFluticasone Propion-Salmeterol (12 sources)Corticosteroid, beta2-Adrenergic AgonistStart: 19-84-4537Hanfjcxplmy Propion-Salmeterol (Wixela Inhub) 500-50 mcg/dose blister with device Active 1 INH INHALATION Twice daily November 27, 2023 11:00pmStart: 48-87-1259Tywqvfdytmx Propion-Salmeterol (Wixela Inhub) 500-50 mcg/dose blister with device Active 1 INH INHALATION Twice daily November 28, 2023 12:00amStart: 09-19-2023 End: 25-33-1727Uvpwkdbqtav Propion-Salmeterol (Wixela Inhub) 250-50 mcg/dose blister with device Discontinued 1 INH INHALATION Twice daily September 18, 2023 11:00pm November 28, 2023 7:26amStart: 09-19-2023 End: 32-77-8779Gamsbowgpum Propion-Salmeterol (Wixela Inhub) 250-50 mcg/dose blister with device Discontinued 1 INH INHALATION Twice daily September 19, 2023 12:00am November 28, 2023 8:26amStart: 50-44-5268Ttuoaezdtic Propion-Salmeterol (Wixela Inhub) 250-50 mcg/dose blister with device Active 1 INH INHALATION Twice daily September 19, 2023 12:00amtake 1 puff(s) by mouth twice dailyfluticasone propion-salmeteroL (Advair Diskus) 500-50 mcg/dose diskus inhaler Inhale 1 puff 2 timesa day. Rinse mouth with water after use to reduce aftertaste and incidence of candidiasis. Do not swallow. Activelosartan potassium 100 mg oral tablet (20 sources)Angiotensin 2 Receptor BlockerStart: 92-96-6136hzdk 1 tablet by mouth once dailylosartan 100 mg Tab 100 mg = 1 tab(s), Oral, Daily, Refills(s) 0 Start Date: 01/09/25 Status: Ordered Repeat number: 1Start: 92-09-0555mjex 1 tablet by mouth once dailyLosartan 100 mg tablet Active 100 MG PO Daily June 25, 2024 12:00amStart: 08-13-2020 End: 24-40-2950opeh 1 tablet by mouth once dailylosartan (Cozaar) 50 mg tablet Indications: Essential hypertension TAKE 1 TABLET BY MOUTH DAILY 90 tablet 3 01/20/2024 01/17/2025 Discontinued (Dose adjustment)100 ml magnesium sulfate 10 mg/ml injection (1 source)Start: 28-17-2495htmz 1000 mg intravenously every hour as needed1,000 mg, IntraVENous, at 100 mL/hr, Administer over 1 Hours, PRN, Other, Per IV Magnesium Replacement Protocol, Starting on Tue01/25/23 at 1835 Mg Lab Replacement Action 1.4- 1.6 1 gram IVPB x 2 doses&am p;nbsp; &am p;nbsp; (2 gram Total) 1.0- 1.3 1 gram IVPB x 4 doses & amp;nbsp; & amp;nbsp; (4 gram Total) <1.0 CALL PHYSICIAN and 1 gram IVPB x 4 doses (4 gram Total) Infuse at 1 gram/hr Repeat Mag level next AM Protocol not for use in Patients with CrCl<30ml/min nitroglycerin 0.4 mg sublingual tablet (20 sources)Nitrate VasodilatorStart: 04-16-2021 End: 91-09-2677yphyuzfxwyuzw (Nitrostat) 0.[address] 1 tablet (0.4 mg) under the tongue every 5 minutesif needed for chest pain. 04/16/2021 Active Nitrostat 0.4 MG as directed Sublingual Activeondansetron (ZOFRAN-ODT) disintegrating tablet 4 mg (1 source)Start: 67-61-4905pszxpdxxqqh (ZOFRAN-ODT) disintegrating tablet 4 mg piperacillin-tazobactam (ZOSYN) 3,375 mg in sodium chloride 0.9 % 50 mL IVPB (mini-bag) (1 source)Start: 96-47-2060cpyzvssolfbq-tazobactam (ZOSYN) 3,375 mg in sodium chloride 0.9 % 50 mL IVPB (mini-bag)Potassium Chloride (1 source)Start: 63-67-9985lcighdlzc chloride (KLOR-CON M) extended release tablet 40 mEqpredniSONE 20 mg oral tablet (14 sources)Start: 02-13-2024 End: 79-83-5483Kaenrekqax 20 mg tablet Active 20 MG PO As Directed as needed for wheezing May 28, 2024 11:14am 3 tabs x 3 days, then 2 tabs x 3 days, then 1 tab x 3 daysStart: 07-26-2023 End: 12-88-7131Hhtrumgnpj 10 mg tablet Discontinued 10 MG PO .COMPLEX 28 July 25, 2023 11:00pm September 12, 2023 12:47pm 10 mg orally 4 tabs x 4 days, 2 tabs x 4 days , 1 tab x 4 days then stop;Start: 78-51-6648rhfymeYYQD 10 MG 4 tablets daily x 4 days , 2 tablets daily x 4 days, 1 tablet daily x 4 days then stop Orally as directed for 12 days Keep on hand to use prn Apr, Active Start: 76-54-5523kxnpmpTAQF 10 MG 4 tablets daily x 4 days , 2 tablets daily x 4 days, 1 tablet daily x 4 days then stop Orally as directed for 12 days Sep, ActiveProAir HFA 108 (90 Base) MCG/ACT (4 sources)take 2 puff(s) by inhalation every four hours as neededProAir HFA 108 (90 Base) MCG/ACT 2 puffs as needed Inhalation every 4 hrs Activerevefenacin 0.0583 mg/ml inhalation solution (20 sources)Start: 07-18-2023 End: 90-67-2617Jsydezgxmae (Yupelri) 175 mcg/3 mL solution for nebulization Active 0 .ROUTE .COMPLEX May 17, 2024 12:17pm USE 1 VIAL IN NEBULIZER DAILYStart: 07-11-2023 End: 75-34-1488Bqffgspbdpn (Yupelri) 175 mcg/3 mL solution for nebulization Discontinued 175 MCG INHALATION Daily 90 July 10, 2023 11:00pm July 18, 2023 11:00am DX COPD j44.9Start: 06-20-6810bxiy 175 ug by inhalation once daily Yupelri 175 mcg, Inhalation, Daily, Refills(s) 0, Shortness of breath or wheezing Start Date: 08/13/20 Status: OrderedStart: 89-20-6006nhke 3 mL by inhalation once dailyYupelri 175 MCG/3ML 3 ml Inhalation daily DX J44.9 COPD Nov, Active End: 46-95-1324vdgliufvvmh (Yupelri) 175 mcg/3 mL nebulizer solution Take 3 mL (175 mcg) by nebulization once daily. 01/17/2025 Discontinued (Therapy completed)Yupelri 175 MCG/3ML Inhalation Solution as directed Quantity: 0 Refills: 0 Ordered: 15-Apr-2022 DO Activetake 3 mL by inhalation once daily revefenacin (YUPELRI) 175 MCG/3ML SOLN Inhale 3 mLs into the lungs daily 0 ActiveSymbicort 160/4.5 inhalation aerosol with adapter (1 source)Start: 87-15-2727mdhq 2 puff(s) by inhalation twice dailySymbicort 160/4.5 inhalation aerosol with adapter 2 puff(s), Inhalation, BID, COPD Start Date: 11/10/16 Status: Acfmlnb32 actuat tiotropium 0.0025 mg/actuat inhalation spray (10 sources)AnticholinergicStart: 85-01-5110Zszurgq Respimat 10 ACT 2.5 mcg/inh inhalation aerosol = 2 inh, Inhalation, Daily, Refills(s) 0 Start Date: 12/21/24 Status: Ordered Repeat number: 1Start: 08-31-2019 End: 03-99-0523ytim 1 capsule by inhalation once daily in the morningTiotropium Durand (Spiriva With Handihaler) 18 mcg Capsule, W/Inhalation Device Discontinued 1 CAPINHALATION Every morning August 30, 2019 11:00pm September 12, 2023 12:47pmUmeclidinium (1 source)AnticholinergicStart: 42-41-4159xkak 62.5 ug by inhalation once daily Umeclidinium (Incruse Ellipta) 62.5 mcg/actuation blister with device Active 1 INH INHALATION Daily30 June 25, 2024 12:00amVitamin D3 5000 intl units oral capsule (2 sources)Start: 97-82-2050ydnr 1 capsule by mouth once daily at mealtime Vitamin D3 5000 intl units oral capsule 125 mcg = 1 cap(s), Oral, Daily, with food, Refills(s) 0 Start Date: 12/21/24 Status: Ordered Repeat number: 1Wixela Inhub (6 sources)Start: 36-06-9795hexu 1 puff(s) by inhalation twice dailyWixela Inhub 1 puff, Inhalation, BID, Refill(s) 0 Start Date: 07/12/23 Status: Ordered Repeat number: 1Start: 06-81-9110vnqo 1 puff(s) by inhalation twice dailyWixela Inhub 1 puff, Inhalation, BID, Refill(s) 0 Start Date: 07/12/23 Status: Ordered Completed/Discontinued Medications MedicationDrug Class(es)DatesSig (Normalized)Sig (Original)aspirin 81 mg chewable tablet (20 sources)Platelet Aggregation Inhibitor, Nonsteroidal Anti-inflammatory Drug Start: 08-31-2019 End: 29-27-6287Anzbmvv (Lexx Chewable Aspirin) 81 mg Tablet,Chewable Discontinued 81 MG PO Every morning 0 September 01, 2019 10:42am September 19, 2023 12:18pm continue daily ASA through 09/21/19 then discontinue per neurology orders 120 actuat budesonide 0.16 mg/actuat / formoterol fumarate 0.0045 mg/actuat metered dose inhaler (20 sources)Corticosteroid, beta2-Adrenergic AgonistStart: 09-19-2023 End: 80-43-8873qwev 2 puff(s) by mouth twice dailyBudesonide-Formoterol 160-4.5 mcg/actuation HFA aerosol inhaler Discontinued 0 .ROUTE .COMPLEX 30.6May 2023 2:56pm November 28, 2023 7:25am INHALE 2 PUFFS BY MOUTH TWICE DAILYStart: 09-19-2023 End: 08-04-6772Ktkxbsorjl-Formoterol (Symbicort) 160-4.5 mcg/actuation HFA aerosol inhaler Discontinued 2 INH INHALATION Twice daily 05 31September 18, 2023 11:00pm September 19, 2023 2:59pmStart: 08-31-2019 End: 38-85-8139reln 1 puff(s) by inhalation twice dailyBudesonide-Formoterol (Symbicort) 160-4.5 mcg/actuation Hfa Aerosol Inhaler Discontinued 2 PUFF INHA LATION Twice daily August 30, 2019 11:00pm September 19, 2023 12:18pm End: 88-06-4058efzoeivafb-formoteroL (Symbicort) 160-4.5 mcg/actuation inhaler Inhale. As directed 04/13/2024 Discontinued (Therapy completed)budesonide- formoteroL (Symbicort) 160-4.5 mcg/actuation inhaler Inhale. As directed Active take 2 puff(s) by inhalation twice dailySymbicort 160-4.5 MCG/ACT 2 puffs Inhalation Twice a day ActiveSymbicort 160-4.5 MCG/ACT Inhalation Aerosol USE DIRECTED. Quantity: 0 Refills: 0 Ordered: 16-Apr-2021 DO Active0.4 ml enoxaparin sodium 100 mg/ml prefilled syringe (1 source)Low Molecular Weight HeparinStart: 72-89-1137ysbqlv 40 mg by subcutaneous injection once daily40 mg, SubCUTAneous, DAILY, First dose on Tue01/25/23 at 1900, Until Discontinued Indication of Use: Prophylaxis-DVT/PE Administer by deep subCUTAneous injection with pt lying down. Alternate injectio n sites on abdominal wall. Do not rub site after injection. Check with provider prior to any invasive procedure.1 ml HYDROmorphone hydrochloride 1 mg/ml cartridge (1 source)Opioid AgonistStart: 01-26-2023 End: 58-40-4301BCZTRzgjcdxtw (DILAUDID) injection 0.25 mgStart: 01-26-2023 End: 85-55-1893UFERTuedeyezc (DILAUDID) injection 0.25 mg1 ml LORazepam 2 mg/ml injection (8 sources)BenzodiazepineStart: 01-26-2023 End: 42-00-7670ZXEjejalg (ATIVAN) injection 0.5 mgtake 1 tablet by mouth every six hoursLORazepam 0.5 MG 1 tablet as needed Orally every 6 hrs Active methylPREDNISolone (7 sources)CorticosteroidStart: 64-51-6635Dmvg-Medrol 80 mg Jan, 60 mg24 hr metoprolol succinate 50 mg extended release oral tablet (20 sources)beta-Adrenergic BlockerStart: 85-30-0640kuot 50 mg by mouth once daily50 mg, Oral, DAILY, First dose on Tue01/26/23 at 1400, Until Discontinued Do not crush or chew.Start: 54-20-8614nrnm 1 tablet by mouth twice daily metoprolol 50 mg ER Tab 50 mg = 1 tab(s), Oral, BID, Refills(s) 0 Start Date: 01/12/23 Status: Ordered Repeat number: 1Start: 08-31-2019 End: 15-67-9520ilje 1 tablet by mouth once dailymetoprolol succinate XL (Toprol- XL) 50 mg 24 hr tablet Indications: Essential hypertension Take 1 tablet (50 mg) by mouth once daily. 90 tablet 3 01/17/2024 01/17/2025 Discontinued (Dose adjustment)1 ml morphine sulfate 2 mg/ml cartridge (1 source)Opioid AgonistStart: 01-25-2023 End: 27-25-3323rnod 2 mg by mouth every four hours as needed for pain2 mg, IntraVENous, EVERY 4 HOURS PRN, Starting on Tue01/25/23 at 1836, Until Tue01/26/23 at 0017, Pain Severe (7-10) If oral and IV narcotics ordered, use oral first and only use IV if oral is ineffective or cannot take oral. Do Not give oral and IV within 1 hour of each other unless specifically ordered. polyethylene glycol 3350 17631 mg powder for oral solution (1 source)Osmotic LaxativeStart: 50-09-005296 g, Oral, DAILY PRN, Starting on Tue01/25/23 at 1835, Until Discontinued, Constipation First linetherapy for constipation5 ml sodium chloride 9 mg/ml injection (4 sources)Start: 89-62-5067kowv 1 dose intravenously twice daily5-40 mL, IntraVENous, EVERY 12 HOURS SCHEDULED (2 [...] mL Midline or Central Line = 20 mL/lumenStart: 01-25-2023 IntraVENous, at 75 mL/hr, CONTINUOUS, Starting on Tue01/25/23 at 1900Start: 23-44-1720TatrtHXUtem, at 5-250 mL/hr, PRN, if patient receiving piggyback infusions and maintenance fluids are not ordered OR KVO fluids to protect IV site / prevent frequent line interruptions/ long duration, Starting on Tue01/25/23 at 1835 For piggyback infusion, administer at same rate as piggyback for atotal of 25 mL. Enter 25 mL into dose field and piggyback rate into rate field of order. If piggyback is infusing at a rate less than 100 mL/hr, enter 25 mL into dose field and 100 mL/hr into rate field of order. For KVO fluids, enter rate of 20 mL/hr or less into rate field of order.Start: 17-19-6077yxhf 10 mL intravenously once as osezzo47 mL, IntraVENous, PRN, Starting on Tue01/25/23 at 1835, Until Discontinued, Line Care, After every IV line usespironolactone 50 mg oral tablet (20 sources)Aldosterone AntagonistStart: 07-08-2015 End: 44-20-2255lapm 1 tablet by mouth once daily in the morningSpironolactone 50 mg Tablet Discontinued 50 MG PO Every morning August 30, 2019 11:00pm March 26, 2024 2:14pmtechnetium mebrofenin (CHOLETEC) injection 3.5 millicurie (1 source)Start: 01-26-2023 End: 53-25-3937dnahbxeoop mebrofenin (CHOLETEC) injection 3.5 millicurieVitamin D 1000 intl units Tab (1 source)Start: 09-93-3588luig 1 tablet by mouth once dailyVitamin D 1000 intl units Tab 1,000 International_Unit = 1 tab(s), Oral, Daily, # 30 tab(s), Refills (s) 0 Start Date: 09/17/20 Status: Ordered Problems Active Problems Problem ClassificationProblemDateDocumented DateEpisodic/ChronicAbdominal hernia (11 sources)Incisional hernia; Translations: [Incisional hernia without obstruction or gangrene]Onset: 14-36-7242MfwxuvsyBmnngfevs pain (16 sources)Unspecified abdominal pain; Translations: [Abdominal pain]Onset: 04-23-2021 Resolved: 80-89-5024KzqzbqckQxnjf cerebrovascular disease (18 sources)Cerebrovascular accident; Translations: [Cerebral artery occlusion, unspecified with cerebral infarction]Onset: 698669-29-8464JrmvqqgXbqvxbv on above:Problem List clean-up per request of Phys. EHR CmteAsthma (20 sources)Asthma; Translations: [Asthma, unspecified type, unspecified]Onset: [id number] tract disease (9 sources)Calculus of gallbladder without cholecystitis without obstruction; Translations: [Acute cholecystitis]Onset: 31-68-0278JzvpeltrSwthrdzec and vision defects (8 sources)Transient visual loss; Translations: [Transient visual loss, unspecified eye]66-54-4989XvldvmhiBngzgqe on above:Problem List clean-up per request of Phys. EHR CmteChronic obstructive pulmonary disease and bronchiectasis (20 sources)Chronic obstructive lung disease; Translations: [Chronic airway obstruction, not elsewhere classified]Onset: 07-29-2021 Resolved: 66-09-9226CiiksfmWettbpmqefa and hemorrhagic disorders (2 sources)Spontaneous ecchymoses; Translations: [Spontaneous ecchymoses]Onset: 32-21-4312IwspuyehJjiepbywlj heart failure; nonhypertensive (13 sources)Unspecified systolic (congestive) heart failure; Translations: [Acute on chronic systolic heart failure]Onset: hronic Coronary atherosclerosis and other heart disease (20 sources)Atherosclerotic heart disease of [place] coronary artery without angina pectoris; Translations: [Coronary arteriosclerosis]Onset: 07-08-2015 Resolved: 87-11-2336RllqwczDglpuqjg mellitus without complication (7 sources)Ftuzgojbpej62-97-9712FcwrcbuwHsfuefzo of white blood cells (6 sources)Familial eosinophilia; 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] 54-94-3219QjzupyiJgragfiej of lipid metabolism (20 sources)Hyperlipidemia; Translations: [Other and unspecified hyperlipidemia] Onset: [id number] hypertension (20 sources)Hypertensive disorder; Translations: [Unspecified essential hypertension]Onset: 538720-98-2952SyapadbDdtiniurnwg chest pain (3 sources)Chest pain; Translations: [Chest pain, unspecified]Onset: 12-21-2022 EpisodicOther aftercare (2 sources)Long-term current use of inhaled steroid; Translations: [assisted (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 inhaled steroids]90-97-0757SacxgmcfOacya aftercare (2 sources)tank terminal gauger (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 inhaled steroids; Translations: [Long-term (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 steroids]70-80-3507ZvkkvmdeFejsl circulatory disease (7 sources)History of cerebrovascular teaqxsax97-32-7039UogavwfcIishz circulatory disease (7 sources)History of transient ischemic tmtsup17-93-6751QmyaselmWgmba connective tissue disease (7 sources)Disorder of rotator ijqu56-17-0860LpgxrefkYaahx connective tissue disease (7 sources)Plantar coyxsrwkm99-47-8913JkibxedyUrfed connective tissue disease (1 source)Diastasis of muscle; Translations: [Separation of muscle (nontraumatic), other site]Onset: 32-28-4636KqerjwskMmbni connective tissue disease (1 source)Diastasis iduub82-65-9650IilpfnagFqejs gastrointestinal disorders (1 source)H/O: gastrointestinal disease; Translations: [Personal history of other diseases of the digestive system]Onset: 90-53-6411GpyfmmeqRyres liver diseases (2 sources)Enzyme level - finding; Translations: [Transaminitis]Onset: 333440-65-6125PmnskxcdKthzo liver diseases (2 sources)Increased bilirubin level; Translations: [Unspecified jaundice]Onset: 740690-05-4149PwybonyrJahjl liver diseases (2 sources)Alkaline phosphatase raised; Translations: [Abnormal levels of other serum enzymes]Onset: 623900-34-2357EfwijpprGonww non-epithelial cancer of skin (6 sources)History of malignant basal cell neoplasm of zfcx87-61-4937Akzppbwm Other nutritional; endocrine; and metabolic disorders (13 sources)Obesity; Translations: [Obesity, unspecified]44-02-3936MsenfvtYtxwq nutritional; endocrine; and metabolic disorders (11 sources)Body mass index 30+ - obesity; Translations: [Body mass index (BMI) 37.0-37.9, adult]Onset: 705762-17-8028OxewjfiQkqya nutritional; endocrine; and metabolic disorders (6 sources)Morbid sfuxpbt83-29-7345MyqwycbNhjug nutritional; endocrine; and metabolic disorders (2 sources)Body mass index (BMI) 36.0-36.9, adult; Translations: [Body mass index (BMI) 36.0-36.9, adult]Onset: 81-49-4542PtgmhgvIqjou screening for suspected conditions (not mental disorders or infectious disease) (5 sources)Increased lactic acid level; Translations: [Other specified abnormal findings of blood chemistry]Onset: 01-25-2023 Resolved: 347506-04-7345YcyvlvdpCmbm-; endo-; and myocarditis; cardiomyopathy (except that caused by tuberculosis or sexually transmitted disease) (7 sources)Ajwdtcjaljlpbf56-95-9202NlzrbhvJtkobeck codes; unclassified (2 sources)History of excision of intestinal structure; Translations: [Acquired absence of other specified parts of digestive tract]Onset: EpisodicResidual codes; unclassified (5 sources)History of repair of umbilical hernia; Translations: [Other specified postprocedural states]45-29-2403RdkbxrttPefjgqg on above:09/15/23 [facility] Residual codes; unclassified (1 source)Past history of procedure; Translations: [Other specified postprocedural states]Onset: 18-41-7554TamgdmglBhgybvsa codes; unclassified (1 source)Preoperative ssyot56-03-9321DnrlxlvhEcoankvdy and history of mental health and substance abuse codes (16 sources)Personal history of nicotine dependence; Translations: [Ex-smoker] Onset: 310061-93-0127UeapzbelAoouexp on above:quit 2006 minimal smoker; Transient cerebral ischemia (8 sources)Transient cerebral ischemia; Translations: [Transient cerebral ischemic attack, unspecified]29-49-6485UzjtghoRnouwne on above:Problem List clean-up per request of Phys. EHR CmteUnclassified (1 source)Other eosinophilia; Translations: [Other eosinophilia]Onset: 12-88-0027Hyaiolqemqoc (1 source)History of hernia qezylq02-24-2703 Past or Other Problems Problem ClassificationProblemDateDocumented DateEpisodic/ChronicConditions associated with dizziness or vertigo (7 sources)Dizziness and giddiness; Translations: [Dizziness]Onset: 07-29-2021 Resolved: 22-62-6791VdsatrzdMwuab aftercare (1 source)Encounter for follow-up examination after completed treatment for conditions other than malignant neoplasm; Translations: [Encounter for follow-up examination after completed treatment for conditionsother than malignant neoplasm]Onset: 80-07-6060HesmhtbaKwwgu aftercare (1 source)Other correction (current) drug therapy; Translations: [OTH SENIOR CARE CURRENT DRUG THERAPY]Onset: 31-73-8054NqbwhrnzWfvgz circulatory disease (6 sources)H/O: hypertension; Translations: [Personal history of other diseases of circulatory system] Resolved: 21-52-3257PwjvjrkpOdpnhecvsdud (1 source)PA (chief complaint)Onset: 02-05-2025 Results Test NameValueInterpretationReference RangeFacilityBASIC METABOLIC PANELon 69-62-6347Lrpco gap [Moles/Vol]16 mmol/LNormal7-20UnAdena Fayette Medical CenterComment on above:Performed By: #### [id number] #### [facility] ([facility]) [address] [place], [place] [address]Xuoursk [Mass/Vol]9.1 mg/dLNormal8.6-10.3UnAdena Fayette Medical CenterComment on above:Performed By: #### [id number] #### [facility] ([facility]) [address] [place], [place] [address]Wanyywmh [Moles/Vol]106 mmol/RTwykgh43-131LjxunclqqrAdena Fayette Medical CenterComment on above:Performed By: #### [id number] #### [facility] ([facility]) [address] [place], [place] [address]AM7 [Moles/Vol]21 mmol/YUfxamo24-27VgyohidwilAdena Fayette Medical CenterComment on above:Performed By: #### [id number] #### [facility] ([facility]) [address] [place], [place] [address]Ivdtzhabfx [Mass/Vol]0.81 mg/dLNormal0.60-1.30UnAdena Fayette Medical CenterComment on above:Performed By: #### [id number] #### [facility] ([facility]) [address] [place], [place] [address]QOHXTRRJUP FILTRATION RATE ML/MIN/1.73 SQ M.RUOSYKXVK84.0 mL/min/1.73m*2Normal>60.0UnAdena Fayette Medical CenterComment on above: Result Comment: [facility]???s estimated glomerular filtration rate (eGFR) will no longer include consideration of race in its calculation. The National Kidney Foundation???s eGFR Task Force developed new recommendations for the estimation of the glomerular filtration rate in the [place] They recommend immediate implementation of the new equation refit without the race variable in all laboratories because the calculation does not include race. In addition to not including race in the calculation and reporting, it included diversity in its development, and has acceptable performance characteristics and potential consequences that do not disproportionately affect anyone group of individuals.Performed By: #### [id number] #### [facility] ([facility]) [address] [place], [place] [address]Tzxvxte [Mass/Vol]95 mg/tEMmkyfr75-971JolbggwjxjAdena Fayette Medical CenterComment on above:Performed By: #### [id number] #### [facility] ([facility]) [address] [address] [place], [place] [address]Guugfkxsn [Moles/Vol]3.5 mmol/LNormal3.5-5.1UnAdena Fayette Medical CenterComment on above:Performed By: #### [id number] #### [facility] ([facility]) [address] [place], [place] [address]Vzqtpx [Moles/Vol]139 mmol/YDbatak045-230KrvksdzxpkAdena Fayette Medical CenterComment on above:Performed By: #### [id number] #### [facility] ([facility]) [address] [place], [place] [address]Ugan nitrogen [Mass/Vol]11 mg/dLNormal7-25UnAdena Fayette Medical CenterComment on above:Performed By: #### [id number] #### [facility] ([facility]) [address] [place], [place] [address]GHDM NITROGEN/CREATININE (MASS RATIO) IN SER/PLAS13.6Normal [facility] Medical CenterComment on above:Performed By: #### [id number] #### [facility] ([facility]) [address] [place], [place] [address]VXQ WITH AUTO DIFFERENTIALon 75-25-3951Dlooqqvdd (Bld) [#/Vol] 0.02 10*3/uLNormal0.00-0.20UnAdena Fayette Medical CenterComment on above: Performed By: #### [id number] #### [facility] ([facility]) [address] [address] [address] [place], [place] [address]Xomlinols/100 WBC (Bld)0.3 %Normal0.0-1.0UnAdena Fayette Medical CenterComment on above:Performed By: #### [id number] #### [facility] ([facility]) [address] [place] [address]Vbyqtdwunui (Bld) [#/Vol]0.00 10*3/uLNormal0.00-0.50UnAdena Fayette Medical CenterComment on above:Performed By: #### [id number] #### [facility] ([facility]) [address] [place] [address]Eigfwvliefz/100 WBC (Bld)0.0 %Normal0.0-6.0UnAdena Fayette Medical CenterComment on above:Performed By: #### [id number] #### [facility] ([facility]) [address] [place], [place] [address]Edhbowodwwb distribution width (RBC) [Ratio]13.2 %Normal 11.5-15.0UnAdena Fayette Medical CenterComment on above:Performed By: #### [id number] #### [facility] ([facility]) [address] [place], [place] [address]ILGFMUSVYYJ MEAN CORPUSCULAR HEMOGLOBIN CONCENTRATION (G/DL) BY QFQOCOEWE42.2 g/yQJvym95.0-35.0UnAdena Fayette Medical CenterComment on above:Performed By: #### [id number] #### [facility] ([facility]) [address] [place], [place] [address]Wdjsyawcfc (Bld) [Volume fraction]37.5 %Ttzlwx81.0-50.0 [facility] CenterComment on above:Performed By: #### [id number] #### [facility] ([facility]) [address] [place], [place] [address]Cankkfakhg (Bld) [Mass/Vol]13.2 g/aGCmosea80.0-17.0UnAdena Fayette Medical CenterComment on above:Performed By: #### [id number] #### [facility] ([facility]) [address] [place], [place] [address]Ccinfulc granulocytes (Bld) [#/Vol]0.04 10*3/uLNormal0.00-0.20 [facility] CenterComment on above:Performed By: #### [id number] #### [facility] ([facility]) [address] [place], [place] [address]Itjqsjir granulocytes/100 WBC (Bld)0.7 %Normal0.0-1.0UnAdena Fayette Medical CenterComment on above:Performed By: #### [id number] #### [facility] ([facility]) [address] [place], [place] [address]Wmyxgxazjdp (Bld) [#/Vol]1.23 10*3/uLNormal1.20-4.00UnAdena Fayette Medical CenterComment on above:Performed By: #### [id number] #### [facility] ([facility]) [address] [place], [place] [address]Upisfhrcphf/100 WBC (Bld)21.0 %Lkuglq24.0-45.0UnAdena Fayette Medical CenterComment on above:Performed By: #### [id number] #### [facility] ([facility]) [address] [place], [place] [address]ERL (RBC) [Entitic mass]32.4 phZnorke61.0-33.0UnAdena Fayette Medical CenterComment on above:Performed By: #### [id number] #### [facility] ([facility]) [address] [place], [place] [address]UXN (RBC) [Entitic vol]91.9 iGItpfno29.0-98.0UnAdena Fayette Medical CenterComment on above:Performed By: #### [id number] #### [facility] ([facility]) [address] [place], [place] [address]Eopyqqvwc (Bld) [#/Vol]0.40 10*3/uLNormal0.10-1.00UnAdena Fayette Medical CenterComment on above:Performed By: #### [id number] #### [facility] ([facility]) [address] [place] [address]Ddxacfqgq/100 WBC (Bld)6.8 %Normal5.0-12.0UnAdena Fayette Medical CenterComment on above:Performed By: #### [id number] #### [facility] ([facility]) [address] [place] [address]Eqzutgreduo (Bld) [#/Vol]4.16 10*3/uLNormal1.60-7.60UnAdena Fayette Medical CenterComment on above:Performed By: #### [id number] #### [facility] ([facility]) [address] [place] [address]Pdzsjbcghax/100 WBC (Bld)71.2 %Oniatb65.0-72.0UnAdena Fayette Medical CenterComment on above:Performed By: #### [id number] #### [facility] ([facility]) [address] [place] [address]UNXL (PER 100 WBCS) BY AUTOMATED COUNT0.0 %Eifaac1UupafxcfxxAdena Fayette Medical CenterComment on above:Performed By: #### [id number] #### [facility] ([facility]) [address] [place] [address]ASEVTBNZG (10*3/UL) IN BLOOD AUTOMATED DYIPH852 10*3/uLNormal 150-400UnAdena Fayette Medical CenterComment on above:Performed By: #### [id number] #### [facility] ([facility]) [address] [place] [address]THZ (Bld) [#/Vol]4.08 10*6/uLNormal3.80-5.70UnAdena Fayette Medical CenterComment on above:Performed By: #### [id number] #### [facility] ([facility]) [address] [place] [address]SDJ (Bld) [#/Vol]5.85 10*3/uLNormal4.00-10.60UnAdena Fayette Medical CenterComment on above:Performed By: #### [id number] #### [facility] ([facility]) [address] [place], [place] [address]REgi 83-46-5115XRLvt-Anesthesia Clinic Service Date: 03/04/25 Chief Complaint: PAC visit prior to upcoming procedure: Robot-assisted recurrent incisional hernia repair with mesh under general anesthesia. HPI Abraham Harry is a pleasant 64 y.o. adult who presents to Pre-Anesthesia Clinic today prior to upcoming robot-assisted recurrent incisional hernia repair with mesh with Dr. Cline under general anesthesia on 03/19/2025. Patient has past medical history of arteriosclerotic heart disease, asthma, former smoker, HTN, and stroke. Patient reports feeling well today. He currently denies any acute illness, fever, chest pain, chest pressure, palpitations, or syncope. He denies SOB at rest but admits to BAH at times which is chronic due to his asthma and COPD. Patient reports compliancy with CPAP nightly. Patient denies history of anesthesia complications including malignant hyperthermia, serotonin syndrome, pseudocholinesterase deficiency, PONV, or difficult intubation. No family history of anesthesia complications. Patient denies tobacco, alcohol, or recreational drug use. Cardiac stress test on 12/21/2022 was normal. EKG on 01/17/2025 reviewed as below. Cardiology clearance received on 01/17/[address] Leiva; low risk for any major adverse cardiac events no further imaging is warranted. Patient will need to stop plavix at least 5 days prior to surgery. Preoperative labs remains outstanding, pt is to complete today after visit. No other concerns addressed at this time. Subjective Allergies[1] Medication Documentation Review Audit Reviewed by Sylvia Araya RN (Registered Nurse) on 03/04/25 at 0947 Medication Order Taking? Sig Documenting Provider Last Dose Status albuterol 2.5 mg /3 mL (0.083 %) nebulizer solution [id number] Yes Take 2.5 mg by nebulization every 6 (six) hours if needed for wheezing. Historical ProviderMD 03/04/2025 Morning Active albuterol 90 mcg/actuation inhaler [id number] Yes Inhale 2 puffs every 6 (six) hours if needed for wheezing. Historical Provider, 03/04/2025 Morning Active atorvastatin (Lipitor) 80 mg tablet [id number] Take 80 mg by mouth in the morning. Daniel ProviderMD Active busPIRone (Buspar) 15 mg tablet [id number] Yes Take 15 mg by mouth two times daily. Daniel Soto MD 03/04/2025 Morning Active cholecalciferol (Vitamin D3) 5,000 Units tablet [id number] Yes Take by mouth. Daniel Soto MD 03/04/2025 Morning Active clopidogrel (Plavix) 75 mg tablet [id number] Yes Take 75 mg by mouth in the morning. Daniel Soto MD 03/04/2025 Morning Active fluticasone propion-salmeteroL (Advair Diskus) 500-50 mcg/dose diskus inhaler [id number] Yes Inhale 1 puff in the morning and at bedtime. Rinse mouth with water after use to reduce aftertaste and incidence of candidiasis. Do not swallow. Daniel Soto MD 03/04/2025 Morning Active losartan (Cozaar) 100 mg tablet [id number] Yes Take 100 mg by mouth in the morning. Daniel Soto MD 03/04/2025 Morning Active metoprolol succinate XL (Toprol-XL) 50 mg 24 hr tablet [id number] Yes Take 50 mg by mouth 2 times daily. Do not crush or chew. Daniel Soto MD 03/04/2025 Morning Active tiotropium (Spiriva) 18 mcg inhalation capsule [id number] Yes Place 1 capsule into inhaler and inhale in the morning. Daniel Soto MD 03/04/2025 Morning Active Immunization History Administered Date(s) Administered Moderna 12 YR UP Vaccine BiValent Booster 08/22/2020, 09/19/2020 Problem List[2] History Medical History[3] Surgical History[4] Social History Socioeconomic History Marital status: Spouse name: Not on file Number of children: Not on file Years of education: Not on file Highest education level: Not on file Occupational History Not on file Tobacco Use Smoking status: Former Types: Cigarettes Smokeless tobacco: Never Substance and Sexual Activity Alcohol use: Not Currently Drug use: Never Comment: occasional Sexual activity: Not on file Other Topics Concern Not on file Social History Narrative Not on file Social Drivers of Health Financial Resource Strain: Not on file Food Insecurity: Not on file Transportation Needs: Not on file Physical Activity: Not on file Stress: Not on file Social Connections: Not on file Intimate Partner Violence: Not on file Housing Stability: Not on file Family History[5] - I have reviewed the patient's most recent Labs, Imaging and other Testing results as below: No visits with results within 30 Day(s) from this visit. Latest known visit with results is: No results found for any previous visit. EKG on 01/17/2025 Cardiac stress test on 12/21/2022 Review of Systems Constitutional: Negative. Negative for chills, fatigue and fever. HENT: Positive for dental problem. Negative for sore throat and trouble swallowing. Eyes: Negative. Respiratory: Positive for shortness of breath (BAH not at rest, chronic.). Negative (more content not included)...NormalUnAdena Fayette Medical Center Labon [id number] Abraham Harry 1960 M Date Provider Department Center 03/04/2025 2244-[facility] MP LAB RESOURCE MP DRAW Medical Pavi No family history on fileNormalUniversBrown Memorial HospitalMRSA/MSSA DNA NASALon 39-40-1872DJIZ DNANegativeNormalNegativeUnAdena Fayette Medical CenterComment on above:Order Comment: Testing methodology is an automated qualitative in vitro diagnostic test for the direct detection and differentiation of Staphylococcus aureus (SA) DNA and methicillin- resistant Staphylococcus aureus (MRSA) DNA from nasal swabs in patients at risk for nasal colonization. The test utilizes real-time polymerase chain reaction (PCR) for the amplification of MRSA/SA DNA and fluorogenic target-specific hybridization probes for the detection of the amplified DNA. A negative result does not preclude nasal colonization.Performed By: #### [id number] #### [facility] ([facility]) [address] [place], [place] [address]VULY DNANegativeNormalNegativeUnAdena Fayette Medical CenterComment on above:Order Comment: Testing methodology is an automated qualitative in vitro diagnostic test for the direct detection and differentiation of Staphylococcus aureus (SA) DNA and methicillin- resistant Staphylococcus aureus (MRSA) DNA from nasal swabs in patients at risk for nasal colonization. The test utilizes real-time polymerase chain reaction (PCR) for the amplification of MRSA/SA DNA and fluorogenic target-specific hybridization probes for the detection of the amplified DNA. A negative result does not preclude nasal colonization.Performed By: #### [id number] #### [facility] ([facility]) [address] [place], [place] [address]MHGXOPS-RPUzb 29-62-6317VJT IN PPP BY COAGULATION ASSAY0.91 Normal0.90-1.10UnAdena Fayette Medical CenterComment on above:Performed By: #### [id number] #### [facility] ([facility]) [address] [place], [place] [address]NGPDUSVAMMS TIME (PT) IN PPP BY COAGULATION ASSAY12.2 SecondsLow 12.3-14.8UnAdena Fayette Medical CenterComment on above:Performed By: #### [id number] #### [facility] ([facility]) [address] [place], [place] [address]Gov-Scslbqcxh Testingon 16-59-6849Inf-Admission [id number] Abraham Harry 1960 [facility] Provider Department Center 03/04/2025 07055-VGH-IOFGGVXETL CLINI*[facility] PAC [place] Medical C No family history on fileNormalUniversity of Bellville Medical CenterOrders Onlyon 03-12-4625Khrpxt [id number] Abraham Harry 1960 [facility] Provider Department Center 01/30/2025 [address]176-LJFNESROSALIA HOFFMAN [facility] SURG Second Fl No family history on fileNormalUniversity of Bellville Medical CenterConsulton [id number] Abraham Harry 1960 [facility] Provider Department Center 01/28/2025 [address]6557-EPQMASON CLINE [facility] SURG Second Fl No family history on file Level of Service:90387 MT OFFICE/OUTPATIENT NEW MODERATE MDM 45 MINUTES Reason for Visit and Comments: Consult [484] - Abraham is here today for consult: Incisional hernia - umbilical herniaNormalUniversity [facility] - AndersonECG 12 Leadon 09-11-1023Ovrzqk sinus rhythm, inferior myocardial infarction, age undetermined, abnormal ECGCPACSMcKitrick Hospital Work Phone: ambulatory Visit Summaryon 39-93-8291Adysggjrpq Visit SummaryAmbulatory Visit Summary ABRAHAM HARRY :1960 Visit Date:01/09/2025 Ambulatory Visit Instructions Your Care Team Attending Physician - LIN FENTON, Marbin Carrillo Primary Care Physician - Tammy FENTON, Beth This Is Your Medications List Contact prescribing [...] Tablets By Mouth Every day Contact prescribing physicianif questions or concerns Unchanged fluticasone-salmeterol (Wixela Inhub) 1 puff Inhalation 2 times a day Contact prescribingphysician if questions or concerns Unchanged losartan (losartan 100 mg Tab) 1 Tablets By Mouth Every day Contact prescribing physicianif questions or concerns Unchanged metoprolol (metoprolol 50 mg ER Tab) 1 Tablets By Mouth 2 times a day Contact prescribingphysician if questions or concerns Unchanged tiotropium (Spiriva [...] signed up for this yet, please contact Penneo at [phone] to get signed up today. Language Information Language assistance services are available as needed. [facility] HospitalConsultation/Specialist Noteon 41-11-2037Acuzhsasqxoe/Specialist Note [id number]#1.00[facility] Cardiology Consultationon 87-52-1077Rjbzttoxcm Consultation [id number]#1.00[facility] Consultation/Specialist Noteon 96-71-9839Imcwtjoedtnl/Specialist Note [id number]#1.00[facility] Automated basophil %Ordered By: Saleem Garcia on 17-59-7691Elrwifigs/100 WBC (Bld)0.5 %Normal.[facility] County HospitalComment on above:Performed By: #### CBC #### [facility] [address] [place] [address] USAAutomated basophil countOrdered By: Saleem Garcia on 63-59-7151Nwtjfmizu (Bld) [#/Vol]0.0 10*3/uLNormal0.0-0.2FMercy Health St. Elizabeth Boardman HospitalComment on above:Result Comment: PERFORMED BY: [place] [address] PATHOLOGIST MODELING MANAGER EDUARD MARCANO M.D.Performed By: #### CBC #### [place] [address] USAAutomated blood monocyte countOrdered By: Saleem Garcia on 74-77-9158Szwwbzlrx (Bld) [#/Vol]0.5 10*3/uLNormal0.0-0.8[facility] HospitalComment on above:Performed By: #### CBC #### [place] [address] USAAutomated eosinophil %Ordered By: Saleem Garcia on 64-75-2693Klkfsolddmk/100 WBC (Bld)2.7 %Normal.[facility] Comment on above:Performed By: #### CBC #### [place] [address] USAAutomated eosinophil countOrdered By: Saleem Garcia on 16-31-2546Mmycmldkgyc (Bld) [#/Vol]0.2 10*3/uLNormal0.0-0.45M[facility] County HospitalComment on above:Performed By: #### CBC #### [facility] [facility] [address] [place] [address] USAAutomated monocyte %Ordered By: Saleem Garcia on 01-17-2024 Monocytes/100 WBC (Bld)6.2 %Normal.[facility] HospitalComment on above:Performed By: #### CBC #### [place] [address] USAAutomated neutrophil %Ordered By: Saleem Marvin on 00-52-4122Dlmpipazhfz/100 WBC (Bld)76.7 %Normal.[facility] County HospitalComment on above:Performed By: #### CBC #### [place] [address] USAComplete Blood Count Auto Diffon 30-35-8383Tnef Corpuscular HGB Conc34.5 g/uXRkiwfo56.5-35.6The [facility] Physician GroupComment on above:Performed By: #### CBC #### [facility] [address] [place] [address] USANRBC%0.0 /100{WBC}Normal0-0.5[facility] Comment on above:Performed By: #### CBC #### [place] [address] USAConsultation/Specialist Noteon 01-17-2024 Consultation/Specialist Note [id number]#1.00[facility] Erythrocyte distribution width [Ratio] by Automated countOrdered By: Saleem Garcia on 24-79-5854Iuzqgkyecff distribution width (RBC) [Ratio]13.7 %Normal 12.0-14.8[facility] HospitalComment on above:Performed By: #### CBC #### [place] [address] USAErythrocytes [#/volume] in Blood by Automated countOrdered By: Saleem Garcia on 76-98-8826OBO (Bld) [#/Vol]4.08 10*6/uLNormal3.90-5.60 [facility] HospitalComment on above:Performed By: #### CBC #### [place] [address] USAHematocrit [Volume Fraction] of Blood by Automated count Ordered By: Saleem Garcia on 11-49-9307Jobrxltjrp (Bld) [Volume fraction]37.5 % Low38.8-50.0[facility] HospitalComment on above:Performed By: #### CBC #### [place] [address] USAHemoglobin [Mass/volume] in BloodOrdered By: Saleem Garcia on 10-64-2053Lmxyxylqaq (Bld) [Mass/Vol]12.9 g/dLLow13.0-17.0[facility] HospitalComment on above:Performed By: #### CBC #### [facility] [address] [place] [address] USALeukocytes [#/volume] corrected for nucleated erythrocytes in Blood by Automated counOrdered By: Saleem Garcia on 63-48-9488GKT corrected for nucl RBC Auto (Bld) [#/Vol]7.9 10*3/uL4.1-10.5FMercy Health St. Elizabeth Boardman HospitalLeukocytes [#/volume] in Blood by Automated countOrdered By: Saleem Garcia on 39-05-5455KMF (Bld) [#/Vol]7.9 10*3/uLNormal4.1-10.5FMercy Health St. Elizabeth Boardman HospitalComment on above:Performed By: #### CBC #### [facility] [address] [place] [address] USALymphocytes [#/volume] in Blood by Automated countOrdered By: Saleem Garcia on 21-72-3795Mqgqrcoeher (Bld) [#/Vol]1.1 10*3/uLNormal1.00-4.8 [facility] HospitalComment on above:Performed By: #### CBC #### [facility] [address] [place] [address] USALymphocytes/100 leukocytes in Blood by Automated count Ordered By: Saleem Garcia on 87-43-2499Quqhhdnelez/100 WBC (Bld)13.9 %Normal. [facility] HospitalComment on above:Performed By: #### CBC #### [facility] [address] [place] [address] USAMCH [Entitic mass] by Automated countOrdered By: Saleem Garcia on 23-76-8161KFX (RBC) [Entitic mass]31.7 jbYopfjg45.5-35.2FMercy Health St. Elizabeth Boardman HospitalComment on above:Performed By: #### CBC #### [facility] [address] [place] [address] USAMCHC Auto (RBC) [Mass/Vol]Ordered By: Saleem Garcia on 37-54-8119AYLZ (RBC) [Mass/Vol]34.5 g/dL32.5-35.6FMercy Health St. Elizabeth Boardman HospitalMCV [Entitic volume] by Automated countOrdered By: Saleem Garcia on 78-18-3332SMM (RBC) [Entitic vol]91.9 hDAbiodu01.5-101[facility] HospitalComment on above:Performed By: #### CBC #### [facility] [address] [place] [address] USANeutrophils [#/volume] in Blood by Automated countOrdered By: Saleem Garcia on 45-81-7206Txhwgojqbef (Bld) [#/Vol]6.0 10*3/uLNormal1.8-7.7 [facility] HospitalComment on above:Performed By: #### CBC #### [facility] [address] [place] [address] USANucleated erythrocytes [Presence] in Blood by Automated countOrdered By: Saleem Garcia on 67-02-2181Ayzmbcnfn RBC Auto Ql (Bld)0.0 /100{WBC}0-0.5FMercy Health St. Elizabeth Boardman HospitalPlatelet mean volume [Entitic volume] in Blood by Automated countOrdered By: Saleem Garcia on 01-17-2024 Platelet mean volume (Bld) [Entitic vol]8.9 fLNormal6.6-10.1FMercy Health St. Elizabeth Boardman HospitalComment on above:Performed By: #### CBC #### [facility] [address] [place] [address] USAPlatelets [#/volume] in Blood by Automated countOrdered By: Saleem Garcia on 57-49-1724Uchrnmlvy (Bld) [#/Vol]190 10*3/mRZssvmf825-553 [facility] HospitalComment on above:Performed By: #### CBC #### [facility] [address] [place] [address] USAConsultation/Specialist Noteon 01-03-2024 Consultation/Specialist Note [id number]#1.00OTBrown [facility] HospitalLab - Other Lab Resultson 54-67-1928Tcs - Other Lab Results [id number]#1.00OT[facility] Outside Recordson 61-33-8367Jedkzsq Records [id number]#1.00[facility] for RehabilitationNo Panel InformationOrdered By: Harriet Galicia on 41-54-7883Ylmiwvptedoea Pathology TestSee commentMorrow County HospitalComment on above:See report. Scanned copy available in EMR.Outside Recordson 22-50-0230Bnqxzgf Records [id number]#1.00OT[facility] Pathology Request for Lab Corpon 55-49-7093Cnzrldtgm Request for Lab CorpNormal The [facility] Physician GroupComment on above:Order Comment: PATHOLOGY GI SPEDCIMENResult Comment: See report. Scanned copy available in EMR. PERFORMED BY: [place] [address] PATHOLOGIST MODELING MANAGER EDUARD MARCANO M.D.Performed By: #### PATH TO [facility] #### [facility] [address] [place] [address] USALab - Other Lab Resultson 73-96-2900Sas - Other Lab [id number]#1.00[facility] for RehabilitationConsultation/Specialist Noteon 81-93-1469Phlshharwomk/Specialist Note [id number]#1.00OT[facility] Outside Recordson 35-45-9620Rqehopy Records [id number]#1.00OTBrown Memorial HospitalLon 21-50-8360LJbuzjipa: [id number] Received: 09/15/23 Status: FLOGhada Lorenzo Num: [id number] Spec Type: Surgical Subm Dr: Marbin Ceballos MD FACS Tissues: A Soft Tissue/Surgical Margin-Other than Tumor,Mass,Lip or Sho (PERITONEUM) Procedures: HE, Gross/Micro L4 Age/ Patient Sex Location Account Attending Physician Abraham Harry 62/M LABELL [id number] Marbin Ceballos MD FACS SPEC NUM: [id number] RECD: 09/15/23 STATUS: FILIBERTO LORENZO NUM: [id number] TONG: 09/14/[address]: Marbin Ceballos MD FACS ENTERED: 09/15/23 [facility] DR: William Christie SPEC [...] serially sectioned revealing unremarkable fibrous cut surfaces. Hat And Cap Sewer sections are submitted in A1. Clinical history: Incisional hernia TW CPT Codes 79349 Specimen: [id number] Received: 09/15/23 Status: FILIBERTO Lorenzo Num: [id number] Spec Type: Surgical Subm Dr: Marbin Ceballos MD [facility] Tissues: A Soft Tissue/Surgical Margin-Other than Tumor,Mass,Lip or Sho (PERITONEUM) Procedures: Duran ROBLES/Fermin L4 Patient: Abraham Harry [id number] (Continued) Signed (signature on file) Ena Jain MD 09/16/[address] [place] [address] Physician GroupProvider Orderson 66-96-2818Geszzbhp [id number]#1.00[facility] for RehabilitationProvider Orderson 80-32-3185Tmetyyge Orders [id number]#1.00[facility] for RehabilitationRad - Other Radiology Reporton 90-96-8288Mxs - Other Radiology Report [id number]#1.00[facility] Miscellaneouson 71-57-7887Itsigwrxkiltg [id number]#1.00[facility] for RehabilitationAsh White Allergenon 83-21-3576Mma White Allergen<0.10NormalClass 0[facility] Physician [facility] HospitalComment on above:Performed By: #### MULBERRY WHITE, BIRCH TREE, SORREL SHE, SYCAMORE, KONSTANTIN WHITE #### [facility] ,[place] Common Silver Alleron 97-16-3032Uogji Tree Common Silver Aller<0.10 NormalClass 0[facility] Physician [facility] HospitalComment on above:Performed By: #### MULBERRY WHITE, BIRCH TREE, SORREL SHE, SYCAMORE, KONSTANTIN WHITE #### [facility] ,[place], White Allergenon 52-11-8665Ybknmvht, White Allergen<0.10NormalClass 0 [facility] Physician [facility] HospitalComment on above:Result Comment: Performed at: - [facility] [id number] Dental Office Coordinator: Christiana Arenas MD, Phone: [phone] PERFORMED BY: [place] [address] [place] [address] PATHOLOGIST MODELING MANAGER EDUARD MARCANO M.D.Performed By: #### MULBERRY WHITE, BIRCH TREE, SORREL SHE, SYCAMORE, KONSTANTIN WHITE #### [facility] ,[place] Sheep Allergenon 11-18-7563Xkhrdd Sheep Allergen0.10Critically abnormal Class 0/[facility] Physician GroupComment on above:Result Comment: Levels of Specific IgE Class Description of Class ----- < 0.10 0 Negative 0.10 - 0.31 0/I Equivocal/Low 0.32 - 0.55 I Low 0.56 - 1.40 II Moderate 1.41 - 3.90 III High 3.91 - 19.00 IV Very High 19.01 - 100.00 V Very High >100.00 Very HighPerformed By: #### MULBERRY WHITE, BIRCH TREE, SORREL SHE, SYCAMORE, KONSTANTIN WHITE #### [facility] ,Axson Allergenon 74-86-3067Efkusqej Allergen0.15Critically abnormalClass 0/I [facility] Physician GroupComment on above:Result Comment: Performed at: [facility] [id number] Dental Office Coordinator: Christiana Arenas MD, Phone: [phone] By: #### MULBERRY WHITE, BIRCH TREE, SORREL SHE, SYCAMORE, KONSTANTIN WHITE #### [facility] ,Alternaria alternata IgE Ab [Units/volume] in SerumOrdered By: Chan Taylor on 03-22-2023. alternata IgE Qn (S)0.22 kU/LClass 0/[facility] County HospitalAmerican house dust mite IgE Ab [Units/volume] in SerumOrdered By: Chan Taylor on 8105Icnoafnc house dust mite IgE Qn (S)17.30 kU/LClass IV [facility] HospitalArea 5 Allergens with IgEon 03-22-2023 Alternaria Alternata0.22Critically abnormalClass 0/[facility] Physician GroupComment on above:Performed By: #### ALLERGEN 5 #### [facility] ,Konstantin White AllergenNormal.[facility] Physician GroupComment on above:Result Comment: Test not performed. Insufficient specimen to perform or complete analysis. Contacted your facility 03/31/2023erformed By: #### ALLERGEN 5 #### [facility] ,Aspergillis Fumigatus Allergen<0.10NormalClass 0[facility] Comment on above:Performed By: #### ALLERGEN 5 #### [facility] ,Berm[place] Grass Allergen0.15Critically abnormalClass 0/[facility] Physician GroupComment on above:Performed By: #### ALLERGEN 5 #### [facility] ,[place] Common Silver AllerNormal.[facility] Physician GroupComment on above:Result Comment: Test not performed. Insufficient specimen to perform or complete analysis. Contacted your facility 03/31/2023erformed By: #### ALLERGEN 5 #### [facility] ,Cat Hair/Dander Allergen1.32Critically abnormalClass IIThe [facility] Physician GroupComment on above:Performed By: #### ALLERGEN 5 #### [facility] ,[place], Mountain Allergen0.11Critically abnormalClass 0/[facility] Hospitale [facility] Physician GroupComment on above:Performed By: #### ALLERGEN 5 #### [facility] ,Cladosporium Herbarum<0.10NormalClass 0The [facility] Physician GroupComment on above:Performed By: #### ALLERGEN 5 #### [facility] ,CLASS DESCRIPTIONNormal.[facility] Physician GroupComment on above:Result Comment: Levels of Specific IgE Class Description of Class ----- < 0.10 0 Negative 0.10 - 0.31 0/I Equivocal/Low 0.32 - 0.55 I Low 0.56 - 1.40 II Moderate 1.41 - 3.90 III High 3.91 - 19.00 IV Very High 19.01 - 100.00 V Very High >100.00 Very HighPerformed By: #### ALLERGEN 5 #### [facility] ,Cockroach Slovak Allergen0.33Critically abnormalClass [facility] Physician GroupComment on above:Performed By: #### ALLERGEN 5 #### [facility] ,[place] Allergen<0.10NormalClass 0[facility] Physician GroupComment on above:Performed By: #### ALLERGEN 5 #### [facility] ,D Farinae Mite Egnzqyhh92.30Critically abnormalClass IVUf Health [facility]ands Children'S Hospital Physician GroupComment on above:Performed By: #### ALLERGEN 5 #### [facility] ,D Pteronyssinus Hfsmyrpv88.40Critically abnormalClass IVUf Health [facility] Children'S Hospital Physician GroupComment on above:Performed By: #### ALLERGEN 5 #### [facility] ,Dog Hair/Dander Allergen0.28Critically abnormalClass 0/[facility] Physician GroupComment on above:Performed By: #### ALLERGEN 5 #### [facility] ,Elm Tree Allergen<0.10NormalClass 0[facility] Physician GroupComment on above:Performed By: #### ALLERGEN 5 #### [facility] ,Immunoglobulin F989Pfkooz8-082Yeq [facility] Physician GroupComment on above: Performed By: #### ALLERGEN 5 #### [facility] ,Maple/Spurgeon Allergen0.13Critically abnormalClass 0/[facility] Physician GroupComment on above:Performed By: #### ALLERGEN 5 #### [facility] ,Mouse Urine Allergen<0.10NormalClass 0[facility] Physician GroupComment on above:Result Comment: PERFORMED BY: [facility] [place] [address] PATHOLOGIST MODELING MANAGER EDUARD MARCANO M.D.Performed By: #### ALLERGEN 5 #### [facility] ,[place], White AllergenNormal.[facility] Physician GroupComment on above: Result Comment: Test not performed. Insufficient specimen to perform or complete analysis. Contacted your facility 03/31/2023erformed By: #### ALLERGEN 5 #### [facility] ,Marion Tree Allergen<0.10NormalClass 0The [facility] Physician GroupComment on above:Performed By: #### ALLERGEN 5 #### [facility] ,Pecan/Clare Tree Allergen<0.10NormalClass 0[facility] Comment on above:Performed By: #### ALLERGEN 5 #### [facility] ,Penicillium Chrysogen Mold All<0.10NormalClass 0[facility] Physician [facility] Comment on above:Performed By: #### ALLERGEN 5 #### [facility] ,Pigweed Allergen<0.10NormalClass 0[facility] Physician GroupComment on above:Performed By: #### ALLERGEN 5 #### [facility] ,Ragweed Short Allergen0.10Critically abnormalClass 0/IThe [facility] Physician GroupComment on above:Performed By: #### ALLERGEN 5 #### [facility] ,[place] Sheep AllergenNormal.[facility] Physician GroupComment on above: Result Comment: Test not performed. Insufficient specimen to perform or complete analysis. Contacted your facility 03/31/2023erformed By: #### ALLERGEN 5 #### [facility] ,Axson AllergenNormal.[facility] Physician GroupComment on above:Result Comment: Test not performed. Insufficient specimen to perform or complete analysis. Contacted your facility 03/31/2023erformed By: #### ALLERGEN 5 #### [facility] ,Thistle Mozambican Allergen0.18Critically abnormalClass 0/IThe [facility] Physician GroupComment on above:Performed By: #### ALLERGEN 5 #### [facility] ,Benjy Allergen<0.10NormalClass 0The [facility] Physician GroupComment on above:Performed By: #### ALLERGEN 5 #### [facility] ,[place] Tree Pollen Allergen0.11Critically abnormalClass 0/IThe [facility] Physician GroupComment on above:Performed By: #### ALLERGEN 5 #### [facility] ,Aspergillus fumigatus IgE Ab [Units/volume] in SerumOrdered By: Chan Taylor on 03-22-2023. fumigatus IgE Qn (S)<0.10 kU/LClass 0[facility] HospitalAutomated eosinophil %Ordered By: Chan Taylor on 03-22-2023 Eosinophils/100 WBC (Bld)3.4 %Normal.[facility] County HospitalComment on above:Order Comment: Reason for Exam Asthma with COPDPerformed By: #### EOS COUNT #### [facility] [address] [place] [address] USAAutomated eosinophil countOrdered By: Chan Taylor on 34-91-3430Rwtnenfdplo (Bld) [#/Vol]0.3 10*3/uLNormal0.0-0.45[facility] HospitalComment on above:Order Comment: Reason for Exam Asthma with COPD Result Comment: PERFORMED BY: [address] [place] [address] PATHOLOGIST MODELING MANAGER EDUARD MARCANO M.D.Performed By: #### EOS COUNT #### [facility] [address] [place] [address] USABermuda grass IgE Ab [Units/volume] in SerumOrdered By: Chan Taylor on 92-36-4321Xyqrgci grass IgE Qn (S)0.15 kU/LClass 0/[facility] County HospitalBoxelder IgE Ab [Units/volume] in SerumOrdered By: Chan Taylor on 66-20-6127Jpjktgto IgE Qn (S)0.13 kU/LClass 0/[facility] County HospitalCladosporium herbarum IgE Ab [Units/volume] in SerumOrdered By: Chan Taylor on 03-22-2023. herbarum IgE Qn (S)<0.10 kU/LClass 0[facility] HospitalCockroach IgE Ab [Units/volume] in SerumOrdered By: Chan Taylor on 28-25-7732Hfvxaknkd IgE Qn (S)0.33 kU/LClass [facility] HospitalCottonwood IgE Ab [Units/volume] in SerumOrdered By: Chan Taylor on 96-19-4486Uqsrclbprw IgE Qn (S)<0.10 kU/LClass 0[facility] HospitalDog dander IgE Ab [Units/volume] in SerumOrdered By: Chan Taylor on 93-25-0158Hsi dander IgE Qn (S)0.28 kU/LClass 0/[facility] HospitalEosinophil Counton 44-58-7639SIG (Bld) [#/Vol]8.6 10*3/uLNormal4.1-10.5[facility] Physician GroupComment on above:Order Comment: Reason for Exam Asthma with COPDPerformed By: #### EOS COUNT #### [facility] [address] [place] [address] USAEuropean house dust mite IgE Ab [Units/volume] in Serum Ordered By: Chan Taylor on 11-26-5055Ygryaptb house dust mite IgE Qn (S)18.40 kU/LClass [facility] CampusIgE [Units/volume] in Serum or PlasmaOrdered By: Chan Taylor on 79-12-5132HnK Qn111 [IU]/mL6-495M[facility] County HospitalLeukocytes [#/volume] corrected for nucleated erythrocytes in Blood by Automated counOrdered By: Chan Taylor on 05-85-4408YSY corrected for nucl RBC Auto (Bld) [#/Vol]8.6 10*3/uL4.1-10.5FMercy Health St. Elizabeth Boardman HospitalMountain Juniper IgE Ab [Units/volume] in SerumOrdered By: Chan Taylor on 07-70-0644Vdpewtiz Juniper IgE Qn (S)0.11 kU/LClass 0/[facility] HospitalMouse urine proteins IgE Ab [Units/volume] in Serum Ordered By: Chan Taylor on 34-26-6453Ydtdg urine proteins IgE Qn (S)<0.10 kU/L Class 0[facility] HospitalNo Panel InformationOrdered By: Chan Taylor on 63-23-2208Dbqvclvq NoteSee comment.[facility] Comment on above:Levels of Specific IgE Class Description of Class ----- < 0.10 0 Negative 0.10 - 0.31 0/I Equivocal/Low 0.32 - 0.55 I Low 0.56 - 1.40 II Moderate 1.41 - 3.90 III High 3.91 - 19.00 IV Very High 19.01 - 100.00 V Very High >100.00 Very High Pecan or Clare Tree IgE Ab [Units/volume] in SerumOrdered By: Chan Taylor on 48-31-3286Azckb or Clare Tree IgE Qn (S)<0.10 kU/LClass [address] [place], [place] [address]altwort IgE Ab [Units/volume] in SerumOrdered By: Chan Taylor on 74-03-9427Pvddvahd IgE Qn (S)0.18 kU/LClass 0/[facility] Miamisburgerum Andorran sycamore IgE antibody assay (units/volume)Ordered By: Chan Taylor on 86-33-2067Osvrkeip Axson IgE Qn (S)See comment.[facility] HospitalComment on above:Test not performed. Insufficient specimen to perform orcomplete analysis.Contacted your facility 03/31/2023Serum Penicillium chrysogenum specific IgE antibody assayOrdered By: Chan Taylor on 03-22-2023. notatum IgE Qn (S)<0.10 kU/LClass [address] [place], [place] [address]erum cat dander IgG antibody assay (units/volume)Ordered By: Chan Taylor on 03-22-2023 Cat dander IgG Qn (S)1.32 kU/LClass [facility], Incerum rough pigweed IgE antibody assay (units/volume)Ordered By: Chan Taylor on 76-26-7055Honqj Pigweed IgE Qn (S)<0.10 kU/LClass [address] [place], [place] [address]erum short ragweed specific IgE antibody assayOrdered By: Chan Taylor on 83-56-9562Icxksj Ragweed IgE Qn (S)0.10 kU/LClass 0/[facility] Miamisburgerum white elm IgG antibody assay (units/volume)Ordered By: Chan Taylor on 02-23-3386Vhudd Elm IgG Qn (S)<0.10 kU/LClass [address] [place], [place] [address]heep Southport IgE Ab [Units/volume] in SerumOrdered By: Chan Taylor on 91-08-2579Nosnp [place]port IgE Qn (S)See comment.[facility] Comment on above:Test not performed. Insufficient specimen to perform orcomplete analysis.Contacted your facility 03/31/2023Silver Birch IgE Ab [Units/volume] in SerumOrdered By: Chan Taylor on 90-54-1663Tnkmpd Birch IgE Qn (S)See comment .[facility] HospitalComment on above:Test not performed. Insufficient specimen to perform orcomplete analysis.Contacted your facility Timothy IgE Ab [Units/volume] in SerumOrdered By: Chan Taylor on 52-47-6470Qldmstz IgE Qn (S)<0.10 kU/LClass [address] [place] [address] [place] IgE Ab [Units/volume] in SerumOrdered By: Chan Taylor on 03-22-2023 [place] IgE Qn (S)0.11 kU/LClass 0/[facility] HospitalWhite Konstantin IgE Ab [Units/volume] in SerumOrdered By: Chan Taylor on 22-58-3692Jmcmr Konstantin IgE Qn (S)See comment.[facility] HospitalComment on above:Test not performed. Insufficient specimen to perform orcomplete analysis.Contacted your facility 03/31/2023White Marion IgE Ab [Units/volume] in SerumOrdered By: Chan Taylor on 46-67-5420Pkkyi Marion IgE Qn (S)<0.10 kU/LClass [address] [place], [place] [address]White mulberry IgE Ab [Units/volume] in SerumOrdered By: Chan Taylor on 80-99-9239Kvsov mulberry IgE Qn (S)See comment.[facility] HospitalComment on above:Test not performed. Insufficient specimen to perform orcomplete analysis.Contacted your facility 03/31/2023ult,Bloodon 24-12-3686Hcrx,BloodSpecimen Description .BLOOD Special Requests R AC 11ML Culture NO GROWTH 5 DAYS Report Status FINAL 01/30/2023[facility] for RehabilitationComment on above:Performed By: #### BC #### [email or web address] [address] [place], [place] [id number] Dental Office Coordinator: Radha Forman,BloodSpecimezeke Description .BLOOD Special Requests L HAND 2ML Culture NO GROWTH 5 DAYS Report Status FINAL 01/30/2023[facility] for RehabilitationComment on above:Performed By: #### BC #### [email or web address] [address] [place], [place] [id number] Dental Office Coordinator: Mckenna Formanice Visit (Cardiology)on 52-56-2568Jnbjvu-up visitDiagnoses/Problems Assessed ASHD (arteriosclerotic heart disease) (414.00) (I25.10) [...] for which she was urgently hospitalized at [facility] [facility]. He underwent laparoscopic cholecystectomy and was hospitalized for 5 days. More recently had some more abdominal discomfort and was transferred to [place] where he underwent MRI and HIDA scan. [...] He has no residual from his previous stroke.He was encouraged to work on diet and exercise and weight loss and he understands the importance ofthese interventions. Surgical History Problems History of Cardiac [...] Inhalation Nebulization SolutionINHALE CONTENTS OF 1 VIAL VIANEBULIZER EVERY 6 HOURS NEEDED Atorvastatin Calcium 80 [...] Recorded: 27Jan2023 08:32AM Heart Rate80, L Radial Hwddygoj941, LUE, Sitting Cgesrfega03, LUE (more content not included)...NormalUH TouchworksTobacco Screening.on 42-86-9647Zhjhb depression screening assessmentB[facility] & [facility] Work Phone: Fall risk assessmenta) No falls within the last year [facility] Work Phone: Tobacco use status CPHSb) [facility] Work Phone: CBC with Auto Differentialon 21-59-9642Ehkswpvyj (Bld) [#/Vol]0.07 10*3/uLBON SECOURS CLEVELAND CLINIC FOUNDATIONBasophils/100 WBC (Bld)1 %0 - 2 %[facility] MERCY HEALTHEosinophils (Bld) [#/Vol]0.43 10*3/uLB[facility] HEALTHEosinophils/100 WBC (Bld)6 %High1 - 4 %[facility] HOSPITALErythrocyte distribution width (RBC) [Ratio]13.6 %11.8 - 14.4 %[facility] Hematocrit (Bld) [Volume fraction]31.6 %Low40.7 - 50.3 %[facility] Hemoglobin (Bld) [Mass/Vol]10.3 g/dLLow13.0 - 17.0 g/dLBON [facility]. [facility] Immature granulocytes (Bld) [#/Vol]0.05 10*3/uLBON ST. RITA'S HOSPITALImmature granulocytes/100 WBC (Bld)1 %Hmom1UDBCARILION ROANOKE COMMUNITY HOSPITALInterpretation and review of laboratory resultsAbnormalBON ST. RITA'S HOSPITALLymphocytes/100 WBC (Bld)19 %Low24 - 43 %[facility] HOSPITALLymphocytes/100 WBC (Bld)1.33 %[facility]ITALH (RBC) [Entitic mass]30.5 pg25.2 - 33.5 pgSENTARA NORFOLK GENERAL HOSPITALHC (RBC) [Mass/Vol]32.6 g/dL28.4 - 34.8 g/dLBON ST. RITA'S HOSPITALMCV (RBC) [Entitic vol]93.5 fL82.6 - 102.9 fLCARILION ROANOKE COMMUNITY HOSPITAL Monocytes/100 WBC (Bld)6 %3 - 12 %[facility] HOSPITALMonocytes/100 WBC (Bld)0.41 %[facility] HOSPITALNeutrophils/100 WBC (Bld)67 %High36 - 65 %[facility] HOSPITALNucleated RBC/100 WBC (Bld) [Ratio]0.0 %0.0 per 100 WBCCARILION ROANOKE COMMUNITY HOSPITALPlatelet mean volume (Bld) [Entitic vol]10.7 fL8.1 - 13.5 fL [facility] HEALTHPlatelets (Bld) [#/Vol]249 10*3/uLB[facility] HEALTHRBC (Bld) [#/Vol]3.38 10*6/uLLow4.21 - 5.77 m/uLBON [facility]. [facility] Segmented neutrophils/100 WBC (Bld)4.77 %[facility] RITA'S HOSPITALWBC other (Bld) [#/Vol]7.1B[facility] ST. R[facility]'S HOSPITALBON ST. RITA'S HOSPITALCBC with Diffon [id number]. Basophil0.07 k/uLNormal0.00-0.20[facility] Comment on above:Performed By: #### PT, CP, CDP #### [facility] [address] [place] [address] Dental Office Coordinator: MDAbs. DasiaImm.Granulocyte0.05 k/uLNormal0.00-0.30[facility] HospitalComment on above:Performed By: #### PTJAMES, CDP #### [facility] [address] [place] [address] Dental Office Coordinator: Shabbir Forman.Neutrophil (Seg)4.77 k/uLNormal1.50-8.10 [facility] HospitalComment on above:Performed By: #### PT, JAMES, CDP #### [facility] [address] [place] [address] Dental Office Coordinator: Candelario Kramer MDBasophils/100 WBC (Bld)1 %Normal0-2MLucile [facility] Hospital at StanfordComment on above:Performed By: #### PT, JMAES, CDP #### [facility] [address] [place] [address] Dental Office Coordinator: FELISA Formanosinophils (Bld) [#/Vol]0.43 10*3/uLNormal 0.00-0.44[facility] HospitalComment on above:Performed By: #### PTJAMES, CDP #### [facility] [address] [place] [address] Dental Office Coordinator: Candelario Madoff, MDEosinophils/100 WBC (Bld)6 %High1-4[facility] HospitalComment on above:Performed By: #### JAMES DILLON, CDP #### [address] [address] Dental Office Coordinator: Candelario Kramer MDErythrocyte distribution width (RBC) [Ratio]13.6 %Epobqv70.8-14.4[facility] HospitalComment on above:Performed By: #### PTJAMES, CDP #### [facility] [address] [place] [address] Dental Office Coordinator: Candelario Kramer MDHematocrit (Bld) [Volume fraction]31.6 %Low 40.7-50.3Mkettering health daytony Harbor-Ucla Medical CenterComment on above:Performed By: #### JAMES DILLON, CDP #### [address] [address] Dental Office Coordinator: Candelario Kramer MDHemoglobin (Bld) [Mass/Vol]10.3 g/dLLow13.0-17.0 [facility] HospitalComment on above:Performed By: #### JAMES DILLON, CDP #### [address] [address] Dental Office Coordinator: Candelario Kramer MDImmature granulocytes/100 WBC (Bld)1 %Rwdu2WmyrdHenry County HospitalComment on above:Performed By: #### JAMES DILLON, CDP #### [facility] [address] [place] [address] Dental Office Coordinator: Candelario Kramer MDLymphocytes (Bld) [#/Vol]1.33 10*3/uLNormal 1.10-3.70[facility] HospitalComment on above:Performed By: #### PTJAMES, CDP #### [facility] [address] [place] [address] Dental Office Coordinator: Arabella Formanhocytes/100 WBC (Bld)19 %Knu65-04WpmbyHenry County HospitalComment on above:Performed By: #### PT, CP, CDP #### [address] [address] Dental Office Coordinator: MYA FormanCH (RBC) [Entitic mass]30.5 ekAxdism62.2-33.5 [facility] HospitalComment on above:Performed By: #### PT, CP, CDP #### [address] [address] Dental Office Coordinator: MYA FormanCHC (RBC) [Mass/Vol]32.6 g/pRBjvser77.4-34.8 [facility] HospitalComment on above:Performed By: #### PT, CP, CDP #### [address] [address] Dental Office Coordinator: MYA FormanCV (RBC) [Entitic vol]93.5 tHDkdlyk01.6-102.9 [facility] HospitalComment on above:Performed By: #### PT, CP, CDP #### [address] [address] Dental Office Coordinator: Candelario Kramer MDMonocytes (Bld) [#/Vol]0.41 10*3/uLNormal 0.10-1.20[facility] HospitalComment on above:Performed By: #### PT, CP, CDP #### [address] [address] Dental Office Coordinator: MYA Formanonocytes/100 WBC (Bld)6 %Normal3-12[facility] HospitalComment on above:Performed By: #### PT, CP, CDP #### [address] [address] Dental Office Coordinator: Rochelle Forman (Seg)67 %Pgsb21-66SfpjnHenry County HospitalComment on above:Performed By: #### PT, CP, CDP #### [facility] [address] [place] [address] Dental Office Coordinator: Candelario Kramer MDNRFAUSTINA Automated0.0 per 100 WBCNormal0.0[facility] HospitalComment on above:Performed By: #### PT, CP, CDP #### [facility] [address] [place] [address] Dental Office Coordinator: Bar Forman mean volume (Bld) [Entitic vol]10.7 fL Normal8.1-13.5[facility] HospitalComment on above:Performed By: #### PT, CP, CDP #### [facility] [address] [place] [address] Dental Office Coordinator: Erica Forman (Bld) [#/Vol]249 10*3/dLEflmmy518-252 [facility] HospitalComment on above:Performed By: #### PT, CP, CDP #### [facility] [address] [place] [address] Dental Office Coordinator: LEYLA FormanBC (Bld) [#/Vol]3.38 10*6/uLLow4.21-5.77[facility] HospitalComment on above:Performed By: #### PT, CP, CDP #### [facility] [address] [place] [address] Dental Office Coordinator: VENANCIO Forman (Bld) [#/Vol]7.1 10*3/uLNormal3.5-11.3MLucile [facility] at StanfordComment on above:Performed By: #### PT, CP, CDP #### [facility] [address] [place] [address] Dental Office Coordinator: Mady Forman 87-75-9966Hkhxkms [Mass/Vol]3.6 g/dLNormal3.5-5.2Mkettering health daytony Harbor-Ucla Medical CenterComment on above: Performed By: #### PTJAMES, CDP #### [facility] [address] [place] [address] Dental Office Coordinator: Candelario Kramer MDAlbumin/Glob Ratio1.3Xqpanm1.0-2.5[facility] HospitalComment on above:Performed By: #### PT, CP, CDP #### [facility] [address] [place] [address] Dental Office Coordinator: Maxime Formankaline Qmbm845 U/VWule76-837OisvrHenry County HospitalComment on above:Performed By: #### PTJAMES, CDP #### [facility] [address] [place] [address] Dental Office Coordinator: Candelario Kramer MDALT [Catalytic activity/Vol]87 U/LHigh5-41[facility] HospitalComment on above:Performed By: #### JAMES DILLON, CDP #### [facility] [address] [place] [address] Dental Office Coordinator: Candelario Kramer MDAniluis m gap [Moles/Vol]11 mmol/LNormal9-17[facility] HospitalComment on above:Performed By: #### PT, CP, CDP #### [facility] [address] [place] [address] Dental Office Coordinator: Candelario Kramer MDAST [Catalytic activity/Vol]93 U/LHigh<40[facility] HospitalComment on above:Performed By: #### PTJAMES, CDP #### [facility] [address] [place] [address] Dental Office Coordinator: Candelario Kramer MDBilirubin [Mass/Vol]0.9 mg/dLNormal0.3-1.2MLucile [facility] Hospital at StanfordComment on above:Performed By: #### PTJAMES, CDP #### [facility] [address] [place] [address] Dental Office Coordinator: LUANN Formanalcium [Mass/Vol]8.6 mg/dLNormal8.6-10.4[facility] HospitalComment on above:Performed By: #### PT CP, CDP #### [facility] [address] [place] [address] Dental Office Coordinator: LUANN Formanhloride [Moles/Vol]105 mmol/FXopjkp87-031MhyzxHenry County HospitalComment on above:Performed By: #### JAMES DILLON, CDP #### [facility] [address] [place] [address] Dental Office Coordinator: Candelario Kramer MDCO2 [Moles/Vol]22 mmol/ULrtnhn00-76NjsweHenry County HospitalComment on above:Performed By: #### JAMES DILLON, CDP #### [facility] [address] [place] [address] Dental Office Coordinator: LUANN Formanreatinine [Mass/Vol]0.7 mg/dLNormal0.7-1.2MLucile [facility] Hospital at StanfordComment on above:Performed By: #### JAMES DILLON, CDP #### [facility] [address] [place] [address] Dental Office Coordinator: Candelario Kramer MDGFR/1.73 sq M.predicted among non-blacks MDRD (S/P/Bld) [Vol rate/Area]mL/min/{1.73_m2}Normal>60[facility] HospitalComment on above:Result Comment: These results are not intended for [...] or following therapy that affects renal tubular secretion.Performed By: #### JAMES DILLON, CDP #### [facility] [address] [place] [address] Dental Office Coordinator: Candelario Kramer MDGlucose [Mass/Vol]90 mg/gJPhvnxj44-65JxvoqLucile [facility] Children's Hospital at StanfordComment on above:Performed By: #### JAMES DILLON, CDP #### [facility] [address] [place] [address] Dental Office Coordinator: Candelario Kramer MDPotassium [Moles/Vol]3.8 mmol/LNormal3.7-5.3 [facility] HospitalComment on above:Performed By: #### JAMES DILLON, CDP #### [address] [address] Dental Office Coordinator: Candelario Kramer MDProtein [Mass/Vol]6.0 g/dLLow6.4-8.3MLucile [facility] Hospital at StanfordComment on above:Performed By: #### JAMES DILLNO, CDP #### [address] [address] Dental Office Coordinator: Candelario Kramer MDSodium [Moles/Vol]138 mmol/OTvpmyr434-759ZoafhHenry County HospitalComment on above:Performed By: #### JAMES DILLON, CDP #### [address] [address] Dental Office Coordinator: Candelario Kramer MDUrea nitrogen [Mass/Vol]14 mg/dLNormal8-23[facility] HospitalComment on above:Performed By: #### JAMES DILLON, CDP #### [facility] [address] [place] [address] Dental Office Coordinator: Candelario Kramer [facility] ADAomprehensive Metabolic Panelon 01-26-2023 Albumin [Mass/Vol]3.6 g/dL3.5 - 5.2 g/dLB[facility] SEC[facility] Eat LocalAlbumin/Globulin [Mass ratio]1.5 {ratio}1.0 - 2.5[facility] MERCY HEALTHALP [Catalytic activity/Vol]209 U/LHigh40 - 129 U/LBON [facility] MERCY HEALTHALT [Catalytic activity/Vol]87 U/LHigh5 - 41 U/LB[facility] AdTheorentY GentisAnion gap [Moles/Vol]11 mmol/L9 - 17 mmol/LB[facility] AdTheorentY HEALTHAST [Catalytic activity/Vol]93 U/L HighNINF - 40 U/LB[facility] Eat LocalBilirubin [Mass/Vol]0.9 mg/dL0.3 - 1.2 mg/dLB[facility] AdTheorentY HEALTHCalcium [Mass/Vol]8.6 mg/dL8.6 - 10.4 mg/dLB[facility] Eat LocalChloride [Moles/Vol]105 mmol/L98 - 107 mmol/LBON [facility] DOCTORS HOSPITALPanjoCO2 [Moles/Vol]22 mmol/L20 - 31 mmol/[facility] Eat Local Creatinine [Mass/Vol]0.7 mg/dL0.7 - 1.2 mg/dLBON SECZIA [facility] Eat LocalGFR/1.73 sq M.predicted MDRD (S/P/Bld) [Vol rate/Area]- PINFBON COTTAGE CHILDREN'S HOSPITALPanjoComment on above: These results are not intended [...] therapy that affects renal tubular secretion. Glucose [Mass/Vol]90 mg/dL70 - 99 mg/dLBON SECSafeLogicInterpretation and review of laboratory resultsAbnormalB[facility] Eat LocalPotassium [Moles/Vol]3.8 mmol/L3.7 - 5.3 mmol/LB[facility] [employer] HEALTHProtein [Mass/Vol] 6.0 g/dLLow6.4 - 8.3 g/dLB[facility] [employer] HEALTHSodium [Moles/Vol]138 mmol/L135 - 144 mmol/LB[address]. RITA'S HOSPITALUrea nitrogen [Mass/Vol]14 mg/dL8 - 23 mg/dLB[facility] ST. RITA'S HOSPITALBON ST. RITA'S HOSPITALMRI ABDOMEN WO CONTRAST MRCPon [id number] ABDOMEN WO CONTRAST MRCPEXAMINATION: MRI OF THE ABDOMEN WITHOUT CONTRAST AND [...] Signed by: Rey Charles MD 01/26/23 Final resultNormalMercy Hayward Hospitalurgically absent gallbladder. No biliary ductal dilatation or retained common duct stone. Heterogeneous fluid is seen in the gallbladder fossa, presumably post operative fluid. Signal loss seen in liver on out of phase images, compatible with fatty infiltration [facility] RIS CONSOLIDATEDEXAMINATION: MRI OF THE ABDOMEN WITHOUT CONTRAST AND [...] bowel distention. Scattered colonic diverticula are seen. [facility] Rey Ramesh MD - 01/26/2023 EXAMINATION: MRI OF THE [...] images, compatible with fatty infiltration [facility] HEALTHRadiology Study observation (narrative)[facility] ABDOMEN WO CONTRAST MRCPOrdered By: Rey Charles on [id number] Work Phone: nm HEPATOBILIARYon [phone] HEPATOBILIARY EXAMINATION: NUCLEAR MEDICINE HEPATOBILIARY SCINTIGRAPHY (HIDA [...] Signed by: Saurabh Paul MD 01/26/23 Final resultNormalMercy Harbor-Ucla Medical CenterNo convincing scintigraphic evidence for a bile leak. [facility] RIS CONSOLIDATEDEXAMINATION: NUCLEAR MEDICINE HEPATOBILIARY SCINTIGRAPHY (HIDA SCAN). 01/26/2023 [...] pericolic gutter to suggest a bile leak. Saurabh Girard MD - 01/26/2023 EXAMINATION: NUCLEAR MEDICINE HEPATOBILIARY [...] scintigraphic evidence for a bile leak. [facility] HOSPITALRadiology Study observation (narrative)[facility] HEPATOBILIARYOrdered By: Saurabh Paul on [id number] STONEWALL [facility] Work Phone: PTon [phone] Coag (PPP) [Relative time]1.0 {INR} NormalMercy Harbor-Ucla Medical CenterComment on above:Result Comment: Therapeutic Range: Moderate Anticoagulant Intensity: INR = 2.0-3.0 High Anticoagulant Intensity: INR = 2.5-3.5Performed By: #### PT, CP, CDP #### [email or web address] [address] [place] [address] Dental Office Coordinator: NILDA Forman Coag (PPP) [Time]13.1 eUvgwjo28.7-14.9[facility] HospitalComment on above:Performed By: #### PT, CP, CDP #### [email or web address] [address] [place] [address] Dental Office Coordinator: HAILEY Formanrotime-INRon [id number] Coag (PPP) [Relative time]1.0 {INR}BON SECTalkLife [facility]CT[facility]OSPITALY [facility] ANNE HOSPITALComment on above: Therapeutic Range: Moderate Anticoagulant Intensity: INR = 2.0-3.0 High Anticoagulant Intensity: INR = 2.5-3.5 PT Coag (PPP) [Time]13.1 sBON SECOURS DOCTORS HOSPITALY HEALTHBON SECOURS DOCTORS HOSPITALY [facility]NE HOSPITALCBC with Auto Differentialon [id number] (Bld) [#/Vol]0.05 10*3/uLBON SECOURS DOCTORS HOSPITALY HEALTHBasophils/100 WBC (Bld)1 %0 - 2 %[facility] HEALTH Eosinophils (Bld) [#/Vol]0.35 10*3/uLBON SECOURS DOCTORS HOSPITALY HEALTHEosinophils/100 WBC (Bld)4 %1 - 4 %[facility] HEALTHErythrocyte distribution width (RBC) [Ratio]13.8 %11.8 - 14.4 %[facility] HEALTHHematocrit (Bld) [Volume fraction]32.9 %Low40.7 - 50.3 %[facility] AdTheorentY HEALTHHemoglobin (Bld) [Mass/Vol]10.6 g/dLLow13.0 - 17.0 g/dLBON SEC[facility]RS MERCY HEALTHImmature granulocytes (Bld) [#/Vol]0.04 10*3/uLBON SEC[facility]RS MERCY HEALTHImmature granulocytes/100 WBC (Bld)1 %Wjgt3LFE SECOURS DOCTORS [facility]OSPITALY HEALTHInterpretation and review of laboratory resultsAbnormalBON SEC[facility]RS MERCY HEALTHLymphocytes/100 WBC (Bld)19 %Low24 - 43 %[facility] HEALTHLymphocytes/100 WBC (Bld)1.50 %[facility]OSPITALY HEALTHMCH (RBC) [Entitic mass]30.0 pg25.2 - 33.5 pgBON FIRELANDS REGIONAL MEDICAL CENTERHC (RBC) [Mass/Vol]32.2 g/dL28.4 - 34.8 g/dLBON ST. RITA'S HOSPITALMCV (RBC) [Entitic vol]93.2 fL82.6 - 102.9 fLCARILION ROANOKE COMMUNITY HOSPITAL Monocytes/100 WBC (Bld)6 %3 - 12 %[facility] HOSPITALMonocytes/100 WBC (Bld)0.51 %[facility] COMM[facility] HOSPITALNeutrophils/100 WBC (Bld)69 %High36 - 65 %[facility] R[facility]'S HOSPITALNucleated RBC/100 WBC (Bld) [Ratio]0.0 %0.0 per 100 WBCCARILION ROANOKE COMMUNITY HOSPITALPlatelet mean volume (Bld) [Entitic vol]10.4 fL8.1 - 13.5 fL [facility] COMM[facility] HOSPITALPlatelets (Bld) [#/Vol]300 10*3/uLCARILION ROANOKE COMMUNITY HOSPITALRBC (Bld) [#/Vol]3.53 10*6/uLLow4.21 - 5.77 m/uLCARILION ROANOKE COMMUNITY HOSPITAL Segmented neutrophils/100 WBC (Bld)5.55 %[facility] COMMUN[facility] HOSPITALWBC other (Bld) [#/Vol]8.0BON [facility] HOSPITALCBC with Diffon [id number]. Basophil0.05 k/uLNormal0.00-0.20[facility] Comment on above:Performed By: #### CDP, CP, LACTIC #### [email or web address] [address] [place] [address] Dental Office Coordinator: Shabbir Forman.Imm.Granulocyte0.04 k/uLNormal0.00-0.30[facility] HospitalComment on above:Performed By: #### CDP, CP, LACTIC #### [email or web address] [address] [place], [place] [address] Dental Office Coordinator: Shabbir Forman.Neutrophil (Seg)5.55 k/uLNormal1.50-8.10 [facility] HospitalComment on above:Performed By: #### CDP, CP, LACTIC #### [place] [address] Dental Office Coordinator: Candelario Kramer MDBasophils/100 WBC (Bld)1 %Normal0-2MLucile [facility] Hospital at StanfordComment on above:Performed By: #### CDP, CP, LACTIC #### [place] [address] Dental Office Coordinator: Candelario Kramer MDEosinophils (Bld) [#/Vol]0.35 10*3/uLNormal 0.00-0.44[facility] HospitalComment on above:Performed By: #### CDP, CP, LACTIC #### [place] [address] Dental Office Coordinator: FELISA Formanosinophils/100 WBC (Bld)4 %Normal1-4[facility] HospitalComment on above:Performed By: #### CDP, CP, LACTIC #### [place] [address] Dental Office Coordinator: Candelario Kramer MDErythrocyte distribution width (RBC) [Ratio]13.8 %Htrcao47.8-14.4[facility] HospitalComment on above:Performed By: #### CDP, CP, LACTIC #### [place] [address] Dental Office Coordinator: Candelario Kramer MDHematocrit (Bld) [Volume fraction]32.9 %Low 40.7-50.3MLucile [facility] Hospital at StanfordComment on above:Performed By: #### CDP, CP, LACTIC #### [place] [address] Dental Office Coordinator: Candelario Kramer MDHemoglobin (Bld) [Mass/Vol]10.6 g/dLLow13.0-17.0 [facility] HospitalComment on above:Performed By: #### CDP, CP, LACTIC #### [facility] [address] [place] [address] Dental Office Coordinator: Gisselle Formanture granulocytes/100 WBC (Bld)1 %Bjrm2XxfygHenry County HospitalComment on above:Performed By: #### CDP, CP, LACTIC #### [place] [address] Dental Office Coordinator: Candelario Kramer MDLymphocytes (Bld) [#/Vol]1.50 10*3/uLNormal 1.10-3.70[facility] HospitalComment on above:Performed By: #### CDP, CP, LACTIC #### [place] [address] Dental Office Coordinator: Reddy Formanmphocytes/100 WBC (Bld)19 %Xig97-79FvefrHenry County HospitalComment on above:Performed By: #### CDP, CP, LACTIC #### [place] [address] Dental Office Coordinator: MYA FormanCH (RBC) [Entitic mass]30.0 avFcqsft32.2-33.5 [facility] HospitalComment on above:Performed By: #### CDP, CP, LACTIC #### [place] [address] Dental Office Coordinator: MYA FormanCHC (RBC) [Mass/Vol]32.2 g/yCZfjevy20.4-34.8 [facility] HospitalComment on above:Performed By: #### CDP, CP, LACTIC #### [address] [address] Dental Office Coordinator: MYA FormanCV (RBC) [Entitic vol]93.2 bUSleeyg64.6-102.9 [facility] HospitalComment on above:Performed By: #### CDP, CP, LACTIC #### [address] [address] Dental Office Coordinator: Candelario Kramer MDMonocytes (Bld) [#/Vol]0.51 10*3/uLNormal 0.10-1.20[facility] HospitalComment on above:Performed By: #### CDP, CP, LACTIC #### [place] [address] Dental Office Coordinator: MYA Formanonocytes/100 WBC (Bld)6 %Normal3-12[facility] HospitalComment on above:Performed By: #### CDP, CP, LACTIC #### [place] [address] Dental Office Coordinator: Ne Formanophil (Seg)69 %Qjuc24-26UiztcHenry County HospitalComment on above:Performed By: #### CDP, CP, LACTIC #### [place] [address] Dental Office Coordinator: Candelario Kramer MDNRBC Automated0.0 per 100 WBCNormal0.0[facility] HospitalComment on above:Performed By: #### CDP, CP, LACTIC #### [place] [address] Dental Office Coordinator: Steven Formantelet mean volume (Bld) [Entitic vol]10.4 fL Normal8.1-13.5[facility] HospitalComment on above:Performed By: #### CDP, CP, LACTIC #### [address] [address] Dental Office Coordinator: Candelario Kramer MDPlatelets (Bld) [#/Vol]300 10*3/fBSkrklq808-744 [facility] HospitalComment on above:Performed By: #### CDP, CP, LACTIC #### [facility] [address] [place] [address] Dental Office Coordinator: LEYLA Forman ([facility]) [#/Vol]3.53 10*6/uLLow4.21-5.77[facility] HospitalComment on above:Performed By: #### CDP, CP, LACTIC #### [facility] [address] [place] [address] Dental Office Coordinator: JAGUAR Forman ([facility]) [#/Vol]8.0 10*3/uLNormal3.5-11.3MLucile [facility] at StanfordComment on above:Performed By: #### CDP, CP, LACTIC #### [facility] [address] [place] [address] Dental Office Coordinator: Candelario Kramer [facility] Metabolic Profon [id number] [Mass/Vol]3.8 g/dLNormal3.5-5.2MLucile [facility] at StanfordComment on above: Performed By: #### CDP, CP, LACTIC #### [facility] [address] [place] [address] Dental Office Coordinator: Candelario Kramer MDAlbumin/Glob Ratio1.0Rrxjax7.0-2.5[facility] HospitalComment on above:Performed By: #### CDP, CP, LACTIC #### [facility] [address] [place] [address] Dental Office Coordinator: Candelario Kramer MDAlkaline Tdwz466 U/JAwux48-769JegdeHenry County HospitalComment on above:Performed By: #### CDP, CP, LACTIC #### [facility] [address] [place] [address] Dental Office Coordinator: Candelario Kramer MDALT [Catalytic activity/Vol]114 U/LHigh5-41[facility] HospitalComment on above:Performed By: #### CDP, CP, LACTIC #### [facility] [address] [place] [address] Dental Office Coordinator: Candelario Kramer MDAnion gap [Moles/Vol]11 mmol/LNormal9-17[facility] HospitalComment on above:Performed By: #### CDP, CP, LACTIC #### [facility] [address] [place] [address] Dental Office Coordinator: Candelario Kramer MDAST [Catalytic activity/Vol]189 U/LHigh<40[facility] HospitalComment on above:Performed By: #### CDP, CP, LACTIC #### [facility] [address] [place] [address] Dental Office Coordinator: Candelario Kramer MDBilirubin [Mass/Vol]0.8 mg/dLNormal0.3-1.2MLucile [facility] Hospital at StanfordComment on above:Performed By: #### CDP, CP, LACTIC #### [facility] [address] [place] [address] Dental Office Coordinator: Candelario Kramer MDCalcium [Mass/Vol]8.7 mg/dLNormal8.6-10.4[facility] HospitalComment on above:Performed By: #### CDP, CP, LACTIC #### [facility] [address] [place] [address] Dental Office Coordinator: Candelario Kramer MDChloride [Moles/Vol]105 mmol/YAlhyku19-507AscorHenry County HospitalComment on above:Performed By: #### CDP, CP, LACTIC #### [facility] [address] [place] [address] Dental Office Coordinator: Candelario Kramer MDCO2 [Moles/Vol]23 mmol/DFxofgt99-74VvewjHenry County HospitalComment on above:Performed By: #### CDP, CP, LACTIC #### [facility] [address] [place] [address] Dental Office Coordinator: LUANN Formanreatinine [Mass/Vol]0.8 mg/dLNormal0.7-1.2MLucile [facility] at StanfordComment on above:Performed By: #### ANDREW CP, LACTIC #### [address] [address] Dental Office Coordinator: Candelario Kramer MDGFR/1.73 sq M.predicted among non-blacks MDRD (S/P/Bld) [Vol rate/Area]mL/min/{1.73_m2}Normal>60Mer[facility]cla Medical CenterComment on above:Result Comment: These results are not intended for [...] or following therapy that affects renal tubular secretion.Performed By: #### AJMES MORALES, LACTIC #### [facility] [address] [place] [address] Dental Office Coordinator: Candelario Kramer MDGlucose [Mass/Vol]88 mg/dRMytely84-05JiwphScripps Memorial HospitalComment on above:Performed By: #### JAMES MORALES, LACTIC #### [facility] [address] [place] [address] Dental Office Coordinator: Candelario Kramer MDPotassium [Moles/Vol]4.3 mmol/LNormal3.7-5.3 [facility] HospitalComment on above:Performed By: #### ANDREW CP, LACTIC #### [facility] [address] [place] [address] Dental Office Coordinator: Candelario Kramer MDProtein [Mass/Vol]6.3 g/dLLow6.4-8.3MLucile [facility] Hospital at StanfordComment on above:Performed By: #### CDP, CP, LACTIC #### [facility] [address] [place] [address] Dental Office Coordinator: VENTURA Formanodium [Moles/Vol]139 mmol/JZplcpo636-519SqlusHenry County HospitalComment on above:Performed By: #### CDP, CP, LACTIC #### [facility] [address] [place], [place] [id number] Dental Office Coordinator: Candelario Kramer MDUrea nitrogen [Mass/Vol]15 mg/dLNormal8-23Henry County HospitalComment on above:Performed By: #### CDP, CP, LACTIC #### [facility] [address] [place] [address] Dental Office Coordinator: LUANN Formanomprehensive Metabolic Panelon 01-25-2023 Albumin [Mass/Vol]3.8 g/dL3.5 - 5.2 g/dLBON SECOURS DOCTORS HOSPITALSelectica HEALTHAlbumin/Globulin [Mass ratio]1.5 {ratio}1.0 - 2.5BON SECOURS MERCY HEALTHALP [Catalytic activity/Vol]229 U/LHigh40 - 129 U/LBON SECOURS MERCY HEALTHALT [Catalytic activity/Vol]114 U/LHigh5 - 41 U/LBON SECOURS MERCY HEALTHAnion gap [Moles/Vol] 11 mmol/L9 - 17 mmol/LBON SECOURS MERCY HEALTHAST [Catalytic activity/Vol]189 U/LHighNINF - 40 U/LBON SECOURS MERCY HEALTHBilirubin [Mass/Vol]0.8 mg/dL0.3 - 1.2 mg/dLBON SECOURS MERCY HEALTHCalcium [Mass/Vol]8.7 mg/dL8.6 - 10.4 mg/dLBON SECOURS MERCY HEALTHChloride [Moles/Vol]105 mmol/L98 - 107 mmol/LBON SECOURS MERCY HEALTHCO2 [Moles/Vol]23 mmol/L20 - 31 mmol/LBON SECOURS DOCTORS HOSPITALY HEALTH Creatinine [Mass/Vol]0.8 mg/dL0.7 - 1.2 mg/dLBON SECOURS MERCY HEALTHGFR/1.73 sq M.predicted MDRD (S/P/Bld) [Vol rate/Area]- PINFBON ST. RITA'S HOSPITALComment on above: These results are not intended [...] therapy that affects renal tubular secretion. Glucose [Mass/Vol]88 mg/dL70 - 99 mg/dLBON ST. RITA'S HOSPITALInterpretation and review of laboratory resultsAbnormalCARILION ROANOKE COMMUNITY HOSPITALPotassium [Moles/Vol]4.3 mmol/L3.7 - 5.3 mmol/LBON ST. RITA'S HOSPITALProtein [Mass/Vol] 6.3 g/dLLow6.4 - 8.3 g/dLBON ST. RITA'S HOSPITALSodium [Moles/Vol]139 mmol/L135 - 144 mmol/LBON ST[address] RITA'S HOSPITALUrea nitrogen [Mass/Vol]15 mg/dL8 - 23 mg/dLBON SPEARFISH REGIONAL HOSPITALLactic Acidon 01-25-2023 Lactic Acid,Whole Bl1.7 mmol/LNormal0.7-2.1MLucile [facility] Comment on above:Performed By: #### CDP, CP, LACTIC #### [facility] [address] [place] [address] Dental Office Coordinator: Candelario Kramer MDLactic Acid, Whole Blood1.7 mmol/L0.7 - 2.1 mmol/LBON SPEARFISH REGIONAL HOSPITALCardiac Stress Teston 69-38-5859Yryduhs Stress TestNort[address], [address] [place] [address] Exercise Stress Test Patient Name: ABRAHAM Garzon Ordering Physician: Tray HARRY MD Study Date: 12/21/2022 Reading Physician: Tray Baca MD MRN/PID: [id number] Supervising [id number] Rey Baca Physician: Accession/Order#: [id number] Referring Physician: REY BACA Date of : 1960 PCP: [id number] Nirav Cain MD Gender: M Fellow: Height: 180.34 cm Nurse: Magali Parks RN Weight: 116.58 kg Hoseman: CALLIE BSA: 2.35 m2 Technologist: BMI: 35.84 kg/m2 Additional Staff: Age: 62 years cc report to: Patient Location: cc report to: [id number] Rey Baca MD Study Type: Cardiac Stress Test Diagnosis/ICD: I25.10-Atherosclerotic heart disease; Z17-Anfyiyhhv (primary) hypertension; R07.9-Chest pain, unspecified Indication: Hypertension Procedure/CPT: Stress Test Interpretation-32407; Stress Test Supervision-[id number] Falls Risk: Low: Patient has low risk [...] 0.4 mm depression. Stress Stage Data: + +---+------+-------+ HR Sys BP Thomas BP + +---+------+-------+ Baseline Resting 90 126 86 + +---+------+-------+ Baseline Standing 96 128 86 + +---+------+-------+ Stage I 122 136 82 + +---+------+-------+ Stage II 141 142 76 + +---+------+-------+ Recovery ECG: Recovery ECG showed normal sinus rhythm, with no abnormal findings. The heart rate recovery was normal. + +---+------+-------+ HR Sys BP Thomas BP + +---+------+-------+ Recovery I 138 148 82 + +---+------+-------+ Recovery II 130 138 76 + +---+------+-------+ Recovery III 115 138 82 + +---+------+-------+ Recovery IV 104 136 78 + +---+------+-------+ Summary: 1. Adequate level of stress achieved. 2. Minimal ST segment depression compared to baseline. Approximately 0.2 to 0.4 mm depression. 3. Normal Stress Test. [id number] Rey Baca MD Electronically signed on 12/23/2022 at 3:40:53 PM Final NormalCentennial Peaks HospitalCardiac Stress Test-[facility] [address] DO Work Phone: Office Visit (Cardiology)on [id number]-up visit Diagnoses/Problems Assessed ASHD (arteriosclerotic heart disease) [...] Test; Status:Hold For - Scheduling,Retrospective Authorization; Requested for:[id number]; Class 2 obesity with body mass index (BMI) of 36.0 to 36.9 in adult Healthy Weight Tips; Status:Complete - Retrospective Authorization; Done: 49Cyd4220 Some eating tips that can help you lose weight.; Status:Complete - Retrospective Authorization; Done: 85Dxp3332 SocHx: Former smoker Tobacco Use Screening; Status:Complete; Done: [id number] Patient Instructions Please bring all medicines, vitamins, [...] a coronary angiogram 7 years ago in [facility] where he had moderate disease treated [...] Inhalation Nebulization SolutionINHALE CONTENTS OF 1 VIAL VIANEBULIZER EVERY 6 HOURS NEEDED Atorvastatin Calcium 80 [...] negative for complaint. Vitals Vital Signs Recorded: 04Fcg8291 09:21AM Heart Rate84, L Radial Dqofvvtg430, LUE, Sitting Xlztoqckh09, LUE, Sitting Height5 ft 10.5 in Exxwjx232 lb BMI Pxstqskmbq95.35 kg/m2 BSA Calculated2.33 Tobacco Useb) No PHQ-2 #1. Over the last 2 weeks have you felt down, depressed or hopeless? (If yes, answer PHQ-9 below)No PHQ-2 #2. Over the last 2 weeks have you felt little interest or pleasure in doing things? (If yes,answer PHQ-9 below)No Falls Screening (Age 18+)a) No [...] clear to auscultation. Card (more content not included)...NormalUH TouchworksOffice Visit (Cardiology) on 24-34-2472Ibeqlc-up visitDiagnoses/Problems Assessed ASHD (arteriosclerotic heart disease) (414.00) (I25.10) [...] Weight Tips; Status:Complete - Retrospective Authorization; Done: 22Tfu3461 Some eating tips that can help you lose weight.; Status:Complete - Retrospective Authorization; Done: 89Cbi4337 Hyperlipidemia Renew: Atorvastatin Calcium 80 MG Oral Tablet; TAKE 1 TABLET BY MOUTH EVERY DAY SocHx: Former smoker Tobacco Use Screening; Status:Complete; Done: 70Dhz2537 Tobacco Use Screening; Status:Complete; Done: 00Eah3536 Patient Instructions Please bring all medicines, vitamins, [...] Inhalation Nebulization SolutionINHALE CONTENTS OF 1 VIAL VIANEBULIZER EVERY 6 HOURS NEEDED Atorvastatin Calcium 80 [...] negative for complaint. Vitals Vital Signs Recorded: 88Lng8746 03:07PM Heart Rate96, R Radial Tkahfvcl804, LUE, Sitting Oxcoabcyx28, LUE, Sitting Height5 ft 10.5 in Emrvoy977 lb 3.2 oz BMI Oayfvwhlgs50.8 kg/m2 BSA Calculated2.37 Tobacco Useb) No Physical Exam Constitutional: alert and in no acute distress. Eyes: no erythema, swelling or discharge from the eye . Neck: neck is supple, symmetric, trachea midline, no masses and no thyromegaly . Pulmonary: no increased work of breathing or signs of respiratory distress and lungs clear to auscultation. Cardiovascula (more content not included)...NormalUH TouchworksTobacco Screening.on 71-14-6932Xxmxyzc use status CPHSb) [facility] [address] DO Work Phone: cbc AUTO DIFFon [id number] #0.1 103/ulNormal 0.0-0.1The [facility] CenterComment on above:Performed By: #### CBC #### [facility] [address] [address] [address] Demetria Antoniosophils/100 WBC (Bld)0.7 %Normal0.2-2.0The [facility] Comment on above:Performed By: #### CBC #### [facility] [address] [address] [address] Demetria Lopez #0.2 103/ulNormal0.0-0.7The [facility] CenterComment on above: Performed By: #### CBC #### [facility] [address] [place] [address] Dr. Demetria Kirklandosinophils/100 WBC (Bld)2.4 %Normal0.9-7.0The [facility] Comment on above:Performed By: #### CBC #### [facility] [address] [place] [address] Dr. Demetria Kirklandrythrocyte distribution width (RBC) [Ratio]12.6 %Xkvfkx30.0-15.0 [facility] CenterComment on above:Performed By: #### CBC #### [facility] [address] [place] [address] Dr. Demetria JainHematocrit (Bld) [Volume fraction]38.1 %Critically low42.0-54.0 [facility] CenterComment on above:Performed By: #### CBC #### [facility] [address] [place] [address] Dr. Demetria JainHemoglobin (Bld) [Mass/Vol]12.5 g/dLCritically low14.0-18.0The [facility] CenterComment on above:Performed By: #### CBC #### [facility] [address] [place] [address] Dr. Demetria Monte #0.04 10e3/ulCritically high0.00-0.03The [facility] Comment on above:Performed By: #### CBC #### [facility] [address] [place] [address] Dr. Demetria Monte %0.4 %Normal0.0-0.5The [facility] CenterComment on above: Performed By: #### CBC #### [facility] [address] [place] [address] Dr. Demetria DiggsH #1.4 103/ulNormal1.2-3.8The [facility] CenterComment on above:Performed By: #### CBC #### [facility] [address] [place] [address] Dr. Demetria Tidwellmphocytes/100 WBC (Bld)13.6 %Critically low20.5-60.0The [facility] CenterComment on above:Performed By: #### CBC #### [facility] [address] [place] [address] Dr. Demetria Mooney DIFF REQNONormalThe [facility] CenterComment on above: Performed By: #### CBC #### [facility] [address] [place] [address] Dr. Demetria Bronson (RBC) [Entitic mass]30.2 zdTiocsg38.9-34.0The [facility] CenterComment on above:Performed By: #### CBC #### [facility] [address] [place] [address] Dr. Demetria Bronson (RBC) [Mass/Vol]32.8 g/dUYeligb72.9-35.2The [facility] CenterComment on above:Performed By: #### CBC #### [facility] [address] [place] [address] Dr. Demetria Bronson (RBC) [Entitic vol]92.0 ePQdxzlo51.0-94.0The [facility] CenterComment on above:Performed By: #### CBC #### [facility] [address] [place] [address] Dr. Demetria Hamlin #0.5 103/ulNormal0.3-0.8The [facility] CenterComment on above:Performed By: #### CBC #### [facility] [address] [place] [address] Dr. Demetria Boydocytes/100 WBC (Bld)4.5 %Normal1.7-12.0[facility] Comment on above:Performed By: #### CBC #### [facility] [address] [place] [address] Dr. Demetria La #7.9 103/ulCritically high1.4-6.5The [facility] Comment on above:Performed By: #### CBC #### [facility] [address] [place] [address] Dr. Demetria Johnsonutrophils/100 WBC (Bld)78.4 %Critically high43.0-75.0The [facility] CenterComment on above:Performed By: #### CBC #### [facility] [address] [place] [address] Dr. Demetria Rodrigezlet mean volume (Bld) [Entitic vol]11.0 fLNormal9.5-13.5The [facility] CenterComment on above:Performed By: #### CBC #### [facility] [address] [place] [address] Dr. Demetria JainPLT243 103/qlDwocpt604-260Xyl [facility] CenterComment on above: Performed By: #### CBC #### [facility] [address] [place] [address] Dr. Demetria JainRBC4.14 106/ulCritically low4.70-6.10The [facility] CenterComment on above:Performed By: #### CBC #### [facility] [address] [place] [address] Dr. Demetria JainWBC10.0 103/ulNormal4.0-11.0The [facility] CenterComment on above:Performed By: #### CBC #### [facility] [address] [place] [address] Dr. Demetria CuiID PROFILEon [id number]-HDL RATIO NORMSEE [facility] HospitalComment on above:Result Comment: 3.3 - 4.4 LOW RISK 4.4 - 7.1 AVERAGE RISK 7.1 - 11.0 MODERATE RISK >11.0 HIGH RISKPerformed By: #### CMP, LIPID #### [facility] [address] [place] [address] Dr. Demetria JainCholesterol [Mass/Vol]171 mg/dLNormal<=200The [facility] Comment on above:Performed By: #### CMP, LIPID #### [facility] [address] [place] [address] Dr. Demetria Gutierresesterol in HDL [Mass/Vol]78 mg/dLCritically hgma68-03Hqx [facility] CenterComment on above:Performed By: #### CMP, LIPID #### [facility] [address] [place] [address] Dr. Demetria JainCholesterol in LDL [Mass/Vol]83.6 mg/dLParkview HealthComment on above:Performed By: #### CMP, LIPID #### [facility] [address] [place] [address] Dr. Demetria Casey.total/Cholesterol in HDL [Mass ratio]2.2 {ratio} NormalThe [facility] CenterComment on above:Performed By: #### CMP, LIPID #### [facility] [address] [place] [address] Dr. Demetria Cardona NORMAL> or = 60 mg/dl - LOW CARDIOVASCULAR RISK <40 mg/dl - HIGH CARDIOVASCULAR RISKParkview HealthComkalkaska memorial health center on above:Performed By: #### CMP, LIPID #### [facility] [address] [place] [address] Dr. Demetria JainLDL CALC NORMALSEE BELOWParkview HealthComment on above:Result Comment: <100 mg/dl OPTIMAL 100 - 129 mg/dl NEAR OR ABOVE OPTIMAL 130 - 159 mg/dl BORDERLINE HIGH 160 - 189 mg/dl HIGH >190 mg/dl VERY HIGH Performed By: #### CMP, LIPID #### [facility] [address] [place] [address] Dr. Demetria JainTriglyceride [Mass/Vol]47 mg/dLNormal<=150[facility] Comment on above:Performed By: #### CMP, LIPID #### [facility] [address] [place] [address] Dr. Demetria JainVLDL CALC9.4 mg/dLNoKettering Health Main CampusComkalkaska memorial health center on above: Performed By: #### CMP, LIPID #### [facility] [address] [place] [address] Dr. Demetria JainPROGuy 14(COMP METB)on 71-92-4745Dqdtbsg [Mass/Vol]4.0 g/dLNormal 3.4-5.0[facility] CenterComment on above:Performed By: #### CMP, LIPID #### [facility] [address] [address] [address] Demetria JainAlbumin/Globulin [Mass ratio]1.1 {ratio}NormalThe [facility] Hospitalment on above:Performed By: #### CMP, LIPID #### [facility] [address] [address] [address] Demetria FrenchP [Catalytic activity/Vol]89 U/MSkhdaw26-275Dpb [facility] CenterComment on above:Performed By: #### CMP, LIPID #### [facility] [address] [address] [address] Demetria FrenchT [Catalytic activity/Vol]26 U/GWhyhgp24-40Fby [facility] Hospitalment on above:Performed By: #### CMP, LIPID #### [facility] [address] [address] [address] Demetria Ayonon gap [Moles/Vol]15.0 mmol/LNormalThe [facility] Comment on above:Performed By: #### CMP, LIPID #### [facility] [address] [address] [address] Demetria JainAST [Catalytic activity/Vol]18 U/NYqvgzz08-26Nbx [facility] Hospitalment on above:Performed By: #### CMP, LIPID #### [facility] [address] [address] [address] Demetria JainBilirubin [Mass/Vol]0.7 mg/dLNormal0.2-1.0The [facility] Comment on above:Performed By: #### CMP, LIPID #### [facility] [address] [address] [address] Demetria JainCalcium [Mass/Vol]9.2 mg/dLNormal8.5-10.1The [facility] Comment on above:Performed By: #### CMP, LIPID #### [facility] [address] [address] [address] Demetria JainChloride [Moles/Vol]100 mmol/VVwkuwd92-864Rmf [facility] Comment on above:Performed By: #### CMP, LIPID #### [facility] [address] [address] [address] Demetria JainCO2 [Moles/Vol]25.8 mmol/GUaudqb32.0-32.0The [facility] Comment on above:Performed By: #### CMP, LIPID #### [facility] [address] [address] [address] Demetria JainCreatinine [Mass/Vol]0.76 mg/dLNormal0.70-1.30The [facility] CenterComment on above:Performed By: #### CMP, LIPID #### [facility] [address] [address] [address] Demetria KirklandGFR-AF [place]>60Normal>=60The [facility] CenterComment on above:Performed By: #### CMP, LIPID #### [facility] [address] [address] [address] Demetria KirklandGFR-NON AF [place]>60Normal>=60The [facility] CenterComment on above:Performed By: #### CMP, LIPID #### [facility] [address] [address] [address] Demetria JainGlobulin (S) [Mass/Vol]3.6 g/dLNormalThe [facility] CenterComment on above:Performed By: #### CMP, LIPID #### [facility] [address] [address] [address] Demetria JainGlucose [Mass/Vol]87 mg/aNEryiiu49-588SorLakehealth [facility] Medical Center Comment on above:Performed By: #### CMP, LIPID #### [facility] [address] [address] [address] Demetria JainPotassium [Moles/Vol]3.8 mmol/LNormal3.5-5.1The [facility] Comment on above:Performed By: #### CMP, LIPID #### [facility] [address] [address] [address] Demetria JainProtein [Mass/Vol]7.6 g/dLNormal6.4-8.2The [facility] Comment on above:Performed By: #### CMP, LIPID #### [facility] [address] [address] [address] Demetria Colondium [Moles/Vol]137 mmol/RHfkmxg649-475Fbn [facility] Comment on above:Performed By: #### CMP, LIPID #### [facility] [address] [place] [address] Dr. Demetria Ramirez nitrogen [Mass/Vol]15.0 mg/dLNormal7.0-18.0The [facility] CenterComment on above:Performed By: #### CMP, LIPID #### [facility] [address] [place] [address] Dr. Demetria Ramirez nitrogen/Creatinine [Mass ratio]19.7 mg/mgNormalThe [facility] CenterComment on above:Performed By: #### CMP, LIPID #### [facility] [address] [place] [address] Dr. Demetria Oquendo AUTO DIFFon [id number] #0.1 103/ulNormal0.0-0.1[facility] CenterComment on above:Performed By: #### CBC #### [facility] [address] [place] [address] Dr. Demetria JainBasophils/100 WBC (Bld)0.5 %Normal0.2-2.0[facility] Comment on above:Performed By: #### CBC #### [facility] [address] [place] [address] Dr. Demetria Lopez #0.3 103/ulNormal0.0-0.7The [facility] CenterComment on above: Performed By: #### CBC #### [facility] [address] [place] [address] Dr. Demetria Kirklandosinophils/100 WBC (Bld)2.8 %Normal0.9-7.0The [facility] Comment on above:Performed By: #### CBC #### [facility] [address] [place] [address] Dr. Demetria Kirklandrythrocyte distribution width (RBC) [Ratio]12.7 %Dxkdiy78.0-15.0 [facility] CenterComment on above:Performed By: #### CBC #### [facility] [address] [place] [address] Dr. Demetria JainHematocrit (Bld) [Volume fraction]38.1 %Critically low42.0-54.0 The [facility] CenterComment on above:Performed By: #### CBC #### [facility] [address] [place] [address] Dr. Demetria JainHemoglobin (Bld) [Mass/Vol]12.9 g/dLCritically low14.0-18.0The [facility] CenterComment on above:Performed By: #### CBC #### [facility] [address] [place] [address] Dr. Demetria Monte #0.04 10e3/ulCritically high0.00-0.03The [facility] Comment on above:Performed By: #### CBC #### [facility] [address] [place] [address] Dr. Demetria Monte %0.4 %Normal0.0-0.5The [facility] CenterComment on above: Performed By: #### CBC #### [facility] [address] [place] [address] Dr. Demetria Fontaine #1.3 103/ulNormal1.2-3.8The [facility] CenterComment on above:Performed By: #### CBC #### [facility] [address] [place] [address] Dr. Demetria Diggshocytes/100 WBC (Bld)11.5 %Critically low20.5-60.0[facility] CenterComment on above:Performed By: #### CBC #### [facility] [address] [place] [address] Dr. Demetria MichelUAL DIFF REQNONormalThe [facility] CenterComment on above: Performed By: #### CBC #### [facility] [address] [place] [address] Dr. Demetria Elizabeth (RBC) [Entitic mass]30.4 biTrjhqy68.9-34.0The [facility] CenterComment on above:Performed By: #### CBC #### [facility] [address] [place] [address] Dr. Demetria Bronson (RBC) [Mass/Vol]33.9 g/gJOxxidw52.9-35.2The [facility] CenterComment on above:Performed By: #### CBC #### [facility] [address] [place] [address] Dr. Demetria Bronson (RBC) [Entitic vol]89.9 pPNelftp12.0-94.0The [facility] CenterComment on above:Performed By: #### CBC #### [facility] [address] [place] [address] Dr. Demetria Hamlin #0.7 103/ulNormal0.3-0.8The [facility] CenterComment on above:Performed By: #### CBC #### [facility] [address] [place] [address] Dr. Demetria Boydocytes/100 WBC (Bld)6.3 %Normal1.7-12.0The [facility] Comment on above:Performed By: #### CBC #### [facility] [address] [place] [address] Dr. Demetria La #8.8 103/ulCritically high1.4-6.5The [facility] Comment on above:Performed By: #### CBC #### [facility] [address] [place] [address] Dr. Demetria Cannonophils/100 WBC (Bld)78.5 %Critically high43.0-75.0The [facility] CenterComment on above:Performed By: #### CBC #### [facility] [address] [place] [address] Dr. Demetria Landa mean volume (Bld) [Entitic vol]10.6 fLNormal9.5-13.5The [facility] CenterComment on above:Performed By: #### CBC #### [facility] [address] [place], [place] [address] Dr. Demetria JainPLT226 103/dmRgoxzk894-687Dlf [facility] CenterComment on above: Performed By: #### CBC #### [facility] [address] [place] [address] Dr. Demetria JainRBC4.24 106/ulCritically low4.70-6.10The [facility] CenterComment on above:Performed By: #### CBC #### [facility] [address] [place] [address] Dr. Demetria JainWBC11.2 103/ulCritically high4.0-11.0The [facility] CenterComment on above:Performed By: #### CBC #### [facility] [address] [place] [address] Dr. Demetria JainCT ABD/PELV W CONon [id number] ABD/PELV W CONCLINICAL HISTORY: ABDOMINAL DISTENSION (GASEOUS). Right and left [...] Electronically authenticated by: EDIN SELF Date: 2021-04-23 21:42[facility] URINE PROFILEon 55-72-2563Ovkcovuni Ql (U)NegativeNormal NEGATIVELakehealth Beachwood Medical CenterComment on above:Performed By: #### ERUR #### [facility] [address] [place] [address] Dr. Demetria JainClarity ()CLEARNormalCLEARLakehealth Beachwood Medical CenterComment on above: Performed By: #### ERUR #### [facility] [address] [place] [address] Dr. Demetria Sullivan (U)LT. YELLOWNormalYELLOWLakehealth Beachwood Medical CenterComment on above:Performed By: #### ERUR #### [facility] [address] [place] [address] Dr. Demetria Mclaughlin micrscopic examination will be performed if indicated. NormalLakehealth Beachwood Medical CenterComment on above:Performed By: #### ERUR #### [facility] [address] [place] [address] Dr. Demetria JainGlucose Ql (U)NegativeNormalNEGATIVELakehealth Beachwood Medical CenterComment on above:Performed By: #### ERUR #### [facility] [address] [place] [address] Dr. Demetria JainHemoglobin Ql (U)NegativeNormalNEGATIVEHenry County Hospital on above:Performed By: #### ERUR #### [facility] [address] [place] [address] Dr. Demetria JainKetones Ql (U)NegativeNormalNEGATIVELakehealth Beachwood Medical CenterComment on above:Performed By: #### ERUR #### [facility] [address] [place] [address] Dr. Demetria JainLEUKOCYTESNegativeNormalNEGATIVEThe [facility] CenterComment on above:Performed By: #### ERUR #### [facility] [address] [place] [address] Dr. Demetria Sebastiantrite Ql (U)NegativeNormalNEGATIVEThe [facility] CenterComment on above:Performed By: #### ERUR #### [facility] [address] [place] [address] Dr. Demetria JainpH (U)5.5 [pH]Normal5-9The [facility] CenterComment on above: Performed By: #### ERUR #### [facility] [address] [place] [address] Dr. Demetria JainSPEC GRAVITY1.656Mfvayb9.005-<=1.025The [facility] CenterComment on above:Performed By: #### ERUR #### [facility] [address] [place] [address] Dr. Demetria Sierra PROTEINNegativeNormalNEGATIVE/ TRACEThe [facility] Comment on above:Performed By: #### ERUR #### [facility] [address] [place] [address] Dr. Demetria Santos MICRO INDNOT INDICATEDNormalThe [facility] CenterComment on above:Performed By: #### ERUR #### [facility] [address] [place] [address] Dr. Demetria JainUrobilinogen Qn (U)0.2 {Cata'U}/dLNormal0.2 - 1.0The [facility] CenterComment on above:Performed By: #### ERUR #### [facility] [address] [place] [address] Dr. Demetria JainLACTATE/LACTIC ACIDon 90-78-4030Ruvjjhb [Moles/Vol]1.7 mmol/L Normal0.7-2.0The [facility] CenterComment on above:Performed By: #### LACT #### [facility] [address] [place] [address] Dr. Demetria JainLIPASEon 47-55-1853Ktyhes [Catalytic activity/Vol]68.0 U/LNormal 23.0-300.0The [facility] CenterComment on above:Performed By: #### CMP, LIPA #### [facility] [address] [place] [address] Dr. Demetria JainPROF 14(COMP METB)on 58-28-0551Tkwxsle [Mass/Vol]3.7 g/dLNormal 3.5-5.0The [facility] CenterComment on above:Performed By: #### CMP, LIPA #### [facility] [address] [place] [address] Dr. Demetria JainAlbumin/Globulin [Mass ratio]1.0 {ratio}NormalThe [facility] CenterComment on above:Performed By: #### CMP, LIPA #### [facility] [address] [place] [address] Dr. Demetria FrenchP [Catalytic activity/Vol]99 U/ONzpnmz13-784Rip [facility] CenterComment on above:Performed By: #### CMP, LIPA #### [facility] [address] [place] [address] Dr. Demetria Geronimo [Catalytic activity/Vol]31 U/GWsjzrw50-26Rfk [facility] CenterComment on above:Performed By: #### CMP, LIPA #### [facility] [address] [place] [address] Dr. Demetria Coelho gap [Moles/Vol]15.0 mmol/LNormalThe [facility] Comment on above:Performed By: #### CMP, LIPA #### [facility] [address] [place] [address] Dr. Demetria García [Catalytic activity/Vol]24 U/DRpavza67-41Tgt [facility] CenterComment on above:Performed By: #### CMP, LIPA #### [facility] [address] [place] [address] Dr. Demetria JainBilirubin [Mass/Vol]0.8 mg/dLNormal0.2-1.3TToledo Hospital Comment on above:Performed By: #### CMP, LIPA #### [facility] [address] [place] [address] Dr. Demetria JainCalcium [Mass/Vol]9.2 mg/dLNormal8.4-10.2[facility] Comment on above:Performed By: #### CMP, LIPA #### [facility] [address] [place] [address] Dr. Demetria JainChloride [Moles/Vol]98 mmol/GRvuilk56-934Osu [facility] Comment on above:Performed By: #### CMP, LIPA #### [facility] [address] [place] [address] Dr. Demetria JainCO2 [Moles/Vol]23.6 mmol/SZgsgoo94.0-30.0[facility] Comment on above:Performed By: #### CMP, LIPA #### [facility] [address] [place] [address] Dr. Demetria JainCreatinine [Mass/Vol]0.93 mg/dLNormal0.66-1.25The [facility] CenterComment on above:Performed By: #### CMP, LIPA #### [facility] [address] [place] [address] Dr. Demetria KirklandGFR-AF [place]>60Normal>=60The [facility] CenterComment on above:Performed By: #### CMP, LIPA #### [facility] [address] [place] [address] Dr. Demetria KirklandGFR-NON AF [place]>60Normal>=60The [facility] CenterComment on above:Performed By: #### CMP, LIPA #### [facility] [address] [place] [address] Dr. Demetria JainGlobulin (S) [Mass/Vol]3.6 g/dLNormalThe [facility] CenterComment on above:Performed By: #### CMP, LIPA #### [facility] [address] [place] [address] Dr. Demetria JainGlucose [Mass/Vol]103 mg/nTHguynw27-568Yhz [facility] Comment on above:Performed By: #### CMP, LIPA #### [facility] [address] [place] [address] Dr. Demetria JainPotassium [Moles/Vol]3.6 mmol/LNormal3.4-5.0The [facility] Comment on above:Performed By: #### CMP, LIPA #### [facility] [address] [address] [address] Demetria JainProtein [Mass/Vol]7.3 g/dLNormal6.1-8.2The [facility] Comment on above:Performed By: #### CMP, LIPA #### [facility] [address] [place] [address] Dr. Demetria JainSodium [Moles/Vol]133 mmol/LCritically tth375-126Zwl [facility] CenterComment on above:Performed By: #### CMP, LIPA #### [facility] [address] [place] [address] Dr. Demetria JainUrea nitrogen [Mass/Vol]15.0 mg/dLNormal9.0-20.0The [facility] CenterComment on above:Performed By: #### CMP, LIPA #### [facility] [address] [place] [address] Dr. Demetria JainUrea nitrogen/Creatinine [Mass ratio]16.1 mg/mgNormalThe [facility] CenterComment on above:Performed By: #### CMP, LIPA #### [facility] [address] [place] [address] Dr. Demetria Banerjee, HIGH SENSITIVITYon 18-67-0971YYPAIO3.3 pg/mLNormal 4.0-42.2The [facility] CenterComment on above:Result Comment: CUT-OFF POINTS HAVE BEEN ESTABLISHED BASED ON THE FOURTH UNIVERSAL DEFINITIONS OF MYOCARDIAL INFARCTION. THE UPPER REFERENCE LIMIT (URL) OF TROPONIN, DEFINED THE 99TH PERCENTILE OF cTnI DISTRIBUTION IN A REFERENCE POPULATION, HAS BEEN CONFIRMED THE DECISION THRESHOLD FOR MA DIAGNOSIS.Performed By: #### HSTROPN ####[facility] [address] [place], [place] [address]Fb. Demetria Randle Screening.on 46-85-5926Tmcy risk assessmenta) No falls within the last yearProvidence [facility]. [facility] [facility] DO Work Phone: Tobacco use status CPHSb) NoM[facility] [place] 250 DO Work Phone: CREATININEon 65-59-3500Epjtupxrwq [Mass/Vol]0.84 mg/dL Normal0.70-1.33Quest DiagnosticsComment on above:Result Comment: For patients >49 years of age, the reference limit for Creatinine is approximately 13% higher for people identified as -Andorran.Performed By: #### 375, 294, 31889 #### [facility]ostics[place] [address] Rub[employer] Grinder: Faraz Garcia MDCreatinine [Mass/Vol]97 mL/min/1.15r5Szjpzs> OR = 60Quest DiagnosticsComment on above:Performed By: #### 375, 294, 88567 #### [facility] [address] Rub[employer] Grinder: Faraz Garcia MDCreatinine [Mass/Vol]113 mL/min/1.10e4Ftkshh> OR = 60Quest DiagnosticsComment on above:Performed By: #### 375, 294, 32235 #### [facility] [address] [employer] Grinder: Faraz Garcia MDELECTROLYTE PANELon 82-35-3402Nuzcegas [Moles/Vol]102 mmol/NQwffcu78-232Zwxgc DiagnosticsComment on above:Performed By: #### 375, 294, 93912 #### [facility] [address] [employer] Grinder: Faraz Garcia MDCO2 [Moles/Vol]28 mmol/AUqievh28-31Doyso DiagnosticsComment on above:Performed By: #### 375, 294, 48903 #### [facility]-[place] [address], [address] [place] [address] Rubber Grinder: Faraz Garcia MDPotassium [Moles/Vol]3.6 mmol/LNormal3.5-5.3 Quest DiagnosticsComment on above:Performed By: #### 375, 294, 43242 #### [facility] [address], [address] [place] [address] Rubber Grinder: Faraz Garcia MDSodium [Moles/Vol]139 mmol/VBimbuj874-561Mercl DiagnosticsComment on above:Performed By: #### 375, 294, 45330 #### [facility]-[address], [address] [place] [address] Rubber Grinder: Faraz Garcia MDUREA NITROGEN (BUN)on 02-05-7671Gysd nitrogen [Mass/Vol]13 mg/dLNormal7-25Quest DiagnosticsComment on above:Order Comment: FASTING: UNKNOWNPerformed By: #### 375, 294, 17559 #### [facility]-[address], [address] [address] Rubber Grinder: Faraz Garcia MDPROGRESSon 23-22-9717JPXWCFHYHDL ID: [id number]: Sukhwinder Casey: (none)Author Type: PhysicianType: Progress NotesFiled: 06/17/2017 3:24 PMNote Text:[facility] Department ofCardiovascular MedicineOUTPATIENT VISIT DATE06/17/17OUTPATIENT VISIT TYPEESTABLISHEDPRIMARY CARE PHYSICIAN:Nirav Cain MD[address] [place] [address]Hckrz: [phone]: [phone] COMPLAINT:Coronary artery diseaseHISTORY OF PRESENT ILLNESS:Abraham Harry is a 56 year old male who presents today to follow up.History includes CAD, HTN, systolic HF, COPD. recent nuclear stress testwithout ischemia. No significant structural heart disease onechocardiogram and no sustainedarrhythmias on Holter. He is working toimprove his diet and trying to be more active. He has been compliant withhis medications. Denies lightheadedness or syncope.PAST MEDICAL HISTORYDiagnosis Date- Abnormal stress test 09/04/12 EF 45%. Inferior fixed defect.- CAD (coronary artery disease) 07/11/15 50% mid RCA stenosis. 60?70 % distal RCA stenosis. Nonobstructivedisease in LAD/left circumflex. EF about 40%.- Cardiomyopathy ([facility]) 07/03/2015 EF 35?40%. Nonischemic- CHF (congestive heart failure) ([facility])07/11/15 EF 40%. EF improved to 50% on 10/17/15.- COPD (chronic obstructive pulmonary disease) ([facility])-HTN (hypertension)- Obesity- Obstructive sleep apnea- Plantar fasciitis [...] d. @ 46 heart aneurysm- Heart Father MA x 4ALLERGIES:ALLERGIESNo Known AllergiesMEDICATIONS:SPIRIVA WITH HANDIHALER 18 [...] Negative for: Pain, stiffnessRESPIRATORY: Negative for: Blood insputum, wheezing.GASTROINTESTINAL: Negative for: Trouble swallowing, blood in stoolMUSCULOSKELETAL:R Shoulder painNEUROLOGIC: Negative for: Numbness, tremorsPSYCHIATRIC: Negative for: Anxiety, depressionSKIN: Negative for: Rashes, itchingHEMATOLOGICAL/LYMPHATIC: Negative for: Easy bruising, easy bleeding,painful lymph nodesI personally interviewed, confirmed and edited the above information ifobtained by others.PHYSICAL EXAMINATION:BP 140/90 Pulse 93 Resp 18 Ht 180.3 cm (5' 11 ) Wt 121.6 kg (268lb) SpO2 98% BMI 37.38 kg/o6Qtmyrlw: Well appearing, in no acute distress. ObeseNeuro: Oriented to person, place and time, alert, cooperative.Eyes: Extra ocular movements intact, pupils react to lightNeck: No jugular venous distention, no palpable thyromegaly.Heart: Regular rhythm, S1,S2 normal, no S3, no S4. No murmur.Lungs: Clear to auscultation bilaterally. Good respiratory effort .Abdomen: Soft, nontender, bowel sounds normal, no palpablehepatosplenomegalySkin: No clubbing, no cyanosis.Extremities: Normal pulses in distal lower extremities. Absent lowerextremity edemaCARDIOVASCULAR MEDICINE TESTING:Echocardiogram: 06/10/17 the EF 63%, stage I diastolic dysfunction, nochange from study 10/17/15Nuclear stress test Lexiscan 06/10/17 no ischemia, normal EFHolter 06/10/17 rhythm is sinus occasional isolated PVCs and no sustainedarrhythmias, symptoms of palpitations and numb all over that did notcorrespond to any arrhythmiasCardiac Catheterization: . Left main was mediumlength vessel with minor luminal irregularity.2. Left anterior descending artery is large vessel, with two diagonalbranches, medium sized each. Left anterior descending artery has milddiffuse atherosclerosis between 20-30% luminal stenosis.3. Left circumflex medium sized vessel with three obtuse mar ginalbranches.Mild diffuse atherosclerosis.4. Right coronary artery is large and dominant vessel. The proximalsegment of the vessel has mild diffuse atherosclerosis. The mid segmentof the vessel has about 50% descrite stenotic lesion. Distal segment ofthe vessel involving the PLV branch has about 60-70% tubular hazylesion.I have personally reviewed the above Cardiovascular Medicine Testing.IMPRESSION/PLAN:Abraham Harry is a 56 year old male with history of CAD, systolic HF,HTN here for follow upCoronary artery disease: 06/10/17 pharmacological nuclear stress testwithout ischemia. 07/11/15 LHCshows distal RCA 60-70% stenosis. I haverecommended the [...] the care your patient. As alwaysplease do nothesitate to contact us with further questions or concerns.Sukhwinder Soto M.D.Dale Chavezpartment of Cardiovascular MedicineGrant Hospitalrt and Vascular InstituteBetty Ville [address], [place] [address]Txinfu: [phone] NormalCDayton Children's HospitalNM- NM Myocardial Spect Rest/Stress 1 Day IMPORTon 93-62-4634KD-NM Myocardial Spect Rest/Stress 1 Day IMPORTImages were obtained outside of [facility] [id number]_[id number] HospitalUS-Echo Transthoracic w/ Contrast IMPORTon 74-33-5298KR-Echo Transthoracic w/ Contrast IMPORTImages were obtained outside of [facility] [id number]_[id number] HospitalCNOVon [id number] Office Visit (CARDFT) --------ABRAHAM HARRY ([id number]) 1960 MDate Time Provider Department05/31/17 3:00 PM SUKHWINDER SOTO During your visit today, we recorded the following information about you: Pulse Respiration Blood pressure Weight 89/minute 18/minute 126/80 119.3 kg Height 1.803 Emi Soto MD 05/31/2017 3:20 PM [facility] InstituteRobert and Elayne [facility] Department of CardiovascularMedicineOUTPATIENT VISIT DATE05/31/17OUTPATIENT VISIT TYPEESTABLISHEDPRIMARY CARE PHYSICIAN:Nirav Cain MD[address] [facility] [address]Rxupc: [phone]: [phone] COMPLAINT: Preoperative risk assessmentHISTORY OF PRESENT ILLNESS:Abraham Harry is [...] RCA stenosis. Nonobstructive disease inLAD/left circumflex. EF about40%.- Cardiomyopathy ([facility]) 07/03/2015 EF 35?40%. Nonischemic- CHF (congestive heart failure) ([facility]) 07/11/15 EF 40%. EF improved to 50% on 10/17/15.- COPD (chronic obstructive pulmonary disease) (HCC)- HTN (hypertension)- Obesity- Obstructive sleep apnea- Plantar [...] d. @ 46 heart aneurysm- Heart Father MA x 4ALLERGIES:ALLERGIESNo Known AllergiesMEDICATIONS:SPIRIVA WITH HANDIHALER 18 mcg inhalation capsule INL CONTENTS OF1 C ONCEDAILY USING HANDIHALERspironolactone (ALDACTONE) 50 mg [...] Negative for: Anxiety, depressionSKIN: Negative for: Rashes, itchingHEMATOLOGICAL/LYMPHATIC: Negative for: Easy bruising, easybleeding, painfullymph nodesI personally interviewed, confirmed and edited the above information ifobtained by others.PHYSICAL EXAMINATION:BP 126/80 Pulse 89 Resp 18 Ht 180.3 cm (5' 11ANDquot;) Wt 119.3 kg (263lb) SpO2 98% BMI 36.68 kg/y3Lvsdhoe: Well appearing, in no acute distress. Obe seNeuro: Oriented to person, place and time, alert, [...] TESTING:Electrocardiogram: 11/10/16 Sinus, occasional PVCs, inferior Q wave sEchocardiogram: 10/16/16SUMMARY/CONCLUSION:1. Normal left ventricular size with low normal global systolic function, EFabout 50%.2. Mildly dilated right ventricle with normal systolic function.3. Mild mitral valve regurgitation.Cardiac Catheterization: . Left main was medium length vessel with minor luminal irregularity.2. Left anterior descending artery is large vessel, with two diagonalbranches, medium sized each. Left anterior descending artery has milddiffuse atherosclerosis znhjped73-55% luminal stenosis.3. Left circumflex medium sized vessel with three obtuse marginal branches.Mild diffuse atherosclerosis.4. Right coronary artery is large and dominant vessel. The proximalsegment of the vessel has mild diffuse atherosclerosis. The mid segmentof the vessel has about 50% descrite stenotic lesion. Distal segment ofthe vessel involving the PLV branch has about 60-70% tubular hazylesion.I have personally reviewed the above Cardiovascular Medicine Testing.IMPRESSION/PLAN:Abraham Harry is a 56 year old male with history of CAD, systolic HF, HTNhere for follow upCoronary artery disease: Exertional shortness of breath associated withpalpitations and chest pain. 07/11/15 LHCshows distal RCA 60-70% stenosis. Ihave recommended the ATP III guidelines that suggest a multifactorial approachto lifestyle modification including a low fat (reduced intake of saturated fats(ANDlt;7% of total energy intake) and cholesterol (ANDlt; 200 mg/d)) and lowsodium diet, weight management, and moderate aerobic exercise ANDgt;150 minutesper week as tolerated. Continue aspirin and statin.Obtain nuclear stress testin addition echocardiogram in 48 hour Holter monitorHeart failure: NYHA functional class II / ACC AHA class C systolic heartfailure that has normalized, most recent LVEF 50%. Pharmacotherapy includesARB, beta avani, long acting nitrate, aldactone. Reinforced low sodium diet,euvolemicDisposition: Follow up in clinic in 2 weeks. Pending studies: Echo, nuclearstress test,48 hour HolterCONTACT INFORMATION:Thank you for allowing us to assist in the care your patient. As always pleasedo not hesitate to contact us with further questions or concerns.Sukhwinder Soto M.D.Dale Chavezpartment of Cardiovascular MedicineGrant Hospitalrt and Vascular Institute[address] [address]Vqqpoc: [phone] Referring Provider: NIRAV CAIN SR [[id number]]Allergies As of Date: 05/31/2017(No Known Allergies )Date Reviewed: 05/31/2017Reviewed by: Nico Starkey (Laith) LAITH Aguilar - Fully AssessedPrimary Visit Diagnosis:Atherosclerosis of [place] coronary artery of [place] heart without angina pectoris [I25.10]Other Visit Diagnoses:Essential hypertension [I10] Systolic heart failure, unspecified heart failure chronicity (HCC) [I50.20]Order(s):ECHO [999006] Order #: [id number]: 1 FUTURE PHARMACOLOGIC STRESS W/NUC IMAGING [9193364] Order #: [id number]: 1 NM CARDIAC PERF STRESS/PHARM [[id number]] Order #: [id number] FUTURE HOLTER MONITOR 48 HOUR [[id number]] Order #: [id number] FUTUREPrescriptions as of 05/31/2017 Sig: SPIRIVA WITH [...] HTN (hypertension) [I10] INVALID FOR* Atherosclerosis of [place] coronary artery of na*INVALID FOR* Acute on chronic systolic congestive heart fail*INVALID FOR* Abnormal stress test [R94.39] INVALID FOR* Chronic systolic congestive heart failure (HCC)*INVALID FOR* Dyspnea, unspecified [R06.00] INVALID FOR* Bilateral low back pain with sciatica [M54.40] INVALID FOR* Tachycardia [R00.0] INVALID FOR*Disposition: Return in about 2 weeks (around 06/14/2017).Follow-up and Disposition History RecordedEncounter Number: [id number] Status:Closed by SUKHWINDER SOTO MD on 05/31/17[facility] CampusPROESSon 09-21-9847HXPXBTIPTBM ID: [id number]: Sukhwinder SotoSernaseeme: (none)Author Type: PhysicianType: Progress NotesFiled: 05/31/2017 3:20 PMNote Text:Heart and Vascular InstituteRobert and Elayne [facility] Department ofCardiovascular MedicineOUTPATIENT VISIT DATE05/31/17OUTPATIENT VISIT TYPEESTABLISHEDPRIMARY CARE PHYSICIAN:EDIE Guthrie[address] [place] [address]Ysqhi: [phone]: [phone] COMPLAINT:Preoperative risk assessmentHISTORY OF PRESENT ILLNESS:Abraham Harry is a 56 yearold male who presents today to follow up.History [...] % distal RCA stenosis. Nonobstructivedisease in LAD/left circum flex. EF about 40%.- Cardiomyopathy ([facility]) 07/03/2015 EF 35?40%. Nonischemic- CHF (congestive heart failure) ([facility]) 07/11/15 EF 40%. EF improved to 50% on 10/17/15.- COPD (chronic obstructive pulmonary disease) ([facility])- HTN (hypertension)- Obesity- Obstructive sleep apnea- Plantar [...] d. @ 46 heart aneurysm- Heart Father MA x 4ALLERGIES:ALLERGIESNo Known AllergiesMEDICATIONS:SPIRIVA WITH HANDIHALER 18 mcg inhalation capsule INL C ONTENTS OF 1 C ONCEDAILY USING HANDIHALERspironolactone (ALDACTONE) 50 mg tablet Take 1 tablet by mouth once daily.isosorbide mononitrate ER (IMDUR) 30 mg 24 hr tablet Take 1 tablet bymouth once daily.budesonide-formoterol (SYMBICORT) 160- 4.5 mcg/actuation inhaler Inhale 2Puffs as instructed twice [...] wheezing.GASTROINTESTINAL: Negative for: Trouble swallowing, blood in stoolMUSCU LOSKELETAL: R Shoulder painNEUROLOGIC: Negative for: Numbness, tremorsPSYCHIATRIC: Negative for: Anxiety, depressionSKIN: Negative for: Rashes, itchingHEMATOLOGICAL/LYMPHATIC: Negative for: Easy bruising, easy bleeding,painful lymph nodesI personally interviewed, confirmed and edited the above information ifobtained by others.PHYSICAL EXAMINATION:BP 126/80 Pulse 89 Resp 18 Ht 180.3 cm (5' 11 ) Wt 119.3 kg (263lb) SpO2 98% BMI 36.68 kg/c0Ogjiabu: Well appearing, in no acute distress.ObeseNeuro: Oriented to person, place and time, alert, cooperative.Eyes: Extra ocular movements intact, pupils react to lightNeck: No jugular venous distention, no palpable thyromegaly.Heart: Regularrhythm, S1, S2 normal, no S3, no S4. No murmur.Lungs: Clear to auscultation bilaterally. Good respiratory effort.Abdomen: Soft, nontender, bowel sounds normal, no palpablehepatosplenomegalySkin: No clubbing, no cyanosis.Extremities: Normal pulses in distal lower extremities. Absent lowerextremity edemaCARDIOVASCULAR MEDICINE TESTING:Electrocardiogram: 11/10/16 Sinus, occasional PVCs, inferior Q wavesEchocardiogram: 10/16/16SUMMARY/CONCLUSION:1. Normal left ventricular size with low normal global systolic function,EF about 50%.2. Mildly dilated right ventricle with normal systolic function.3. Mild mitral valve regurgitation.Cardiac Catheterization: . Left main was medium length vesselwith minor luminal irregularity.2. Left anterior descending artery [...] have personally reviewed the above Cardiovascular Medicine Testing.IMPRESSION/PLAN:Abraham Harry is a 56 year old male [...] mg/d)) and low sodium diet, weight management, an dmoderate aerobic exercise >150 minutes per week as [...] contact us with further questions or concerns.Shania Choechristus st. vincent physicians medical centerment of Cardiovascular MedicineGrant Hospitalrt and Vascular InstituteTrihealth Mccull[facility].[place], [place] [address]Qecgxi: [phone] NoBucyrus [facility] CNOVon [id number] Visit (CARDFT) --------ABRAHAM HARRY ([id number]) 1960 MDate Time Provider Department11/15/16 9:30 AM SUKHWINDER SOTO During your visit today, we recorded the following information about you: Pulse Respiration Blood pressure Weight 80/minute 18/minute 147/97 115.2 kg Height 1.803 Emi Soto MD 11/15/2016 9:39 AM [facility] Elayne Castaneda Department of CardiovascularMedicineOUTPATIENT VISIT DATE 11/15/16OUTPATIENT VISIT TYPEESTABLISHEDPRIMARY CARE PHYSICIAN:Nirav Cain MD[address] [facility] [address]Zxfcu: [phone]: [phone] COMPLAIN T:Preoperative risk assessmentHISTORY OF PRESENT ILLNESS:Abraham Garzon Piero is a 56 year old male whopresents today to follow up. Historyincludes CAD, HTN, systolic HF, COPD. Dr Hogan to perform shoulder surgery nextTuesday for rotator cuff repair. Not compliant with strict low salt diet.Remains active, kayaks, hikes. Walks on treadmill. Denies chest pain,orthopnea, cough, edema, palpitations, PND, lightheadedness or syncope.PAST MEDICAL HISTORYDiagnosis Date- Abnormal stress test 09/04/12 EF 45%.Inferior fixed defect.- CAD (coronary artery disease) 07/11/15 50% mid RCA stenosis. 60?70 % distal RCA stenosis. Nonobstructive disease inLAD/left circumflex. EF about 40%.- Cardiomyopathy ([facility]) 07/03/2015 EF 35?40%. Nonischemic- CHF (congestive heart failure) ([facility]) 07/11/15 EF 40%. EF improved to 50%on 10/17/15.- COPD (chronic obstructive pulmonary disease) ([facility])- HTN (hypertension)- Obesity- Obstructive sleep apnea- Plantar fasciitis Right footPAST SURGICAL LYHISAN1241: HERNIA REPAIR HXNo date: PAST SURGICAL HISTORY [...] @ 46 heart aneurysm Heart Father Comment: MA x 4ALLERGIES:ALLERGIESNo Known AllergiesM EDICATIONS:spironolactone (ALDACTONE) 50 mg tablet Take 1 tablet [...] as instructed.REVIEW OF SYSTEMS:GENERAL: Negative for: Fever, F atigue.CARDIAC: See HPI above.HEENT: Negative for: Ringing in Ears, nosebleeds, bleeding gums. AdequatedentitionNECK: Negative for: Pain, stiffnessRESPIRATORY: Negative for: Blood in sputum, wheezing.GASTROINTESTINAL: Negative for: Trouble swallowing, blood in stoolMUSCULOSKELETAL: R Shoulder painNEUROLOGIC: Negative for: Numbness, tremorsPSYCHIATRIC: Negative for: Anxiety, depressionSKIN: Negative for: Rashes, itchingHEMATOLOGICAL/LYMPHATIC: Negative for: Easy bruising, easy bleeding, painfullymph nodesI personally interviewed, confirmed and edited the above information ifobtained by others.PHYSICAL EXAMINATION:BP 147/97 Pulse 80 Resp 18 Ht 180.3 cm (5' 11ANDquot;) Wt 115.2 kg (254lb) SpO2 96% BMI 35.43 kg/b4Ebrpecg: Well appearing, in no acute distress. ObeseNeuro: Oriented to person, place and time, alert, cooperative.Eyes: Extra ocular movements intact, pupils react to lightNeck: No jugular venous distention, no palpable thyromegaly.Heart: Regular rhythm, S1, S2 normal, no S3, no S4. No murmur.Lungs: Clear to auscultation bilaterally. Good respiratory effort.Abdomen:Soft, nontender, bowel sounds normal, no palpable hepatosplenomegalySkin: No clubbing, no cyanosis.Extremities: Normal pulses in distal lower extremities. Absent lower extremityedemaCARDIOVASCULAR MEDICINE TESTING:Electrocardiogram: 11/10/16 Sinus, occasional PVCs, inferior Q wavesEchocardiogram: 10/16/16SUMMARY/CONCLUSION:1. Normal left ventricular size with low normal global systolic function, EFabout 50%.2. Mildly dilated right ventricle with normal systolic function.3. Mild mitral valve regur gitation.Cardiac Catheterization: . Left main was medium length [...] have personally reviewed the above Cardiovascular Medicine Testing.IMPRESSION/PLAN:Abraham Harry is a 56year old male with history of CAD, systolic HF, HTNhere for follow upPreoperative risk assessment for noncardiac surgery: Per ACC/AHA guidelines,this is a moderate risk surgery planned. Functional capacity is good (ANDgt;4mets). No active cardiac conditions (decompensated valvular heart disease,decompensated heart failure, acute coronary syndrome including unstable angina,uncontrolled significantarrhythmia). Clinical risk factors: CVA no; CHF yes;known CAD yes; DM no; CrANDgt;2 no. The patientdoes not meet criteria forfurther diagnostic cardiovascular testing and patient may proceed with surgerywith low but acceptable risk for perioperative cardiovascular events. OK tostop aspirin 7 days before surgery and resume as soon as able from a bleedingstandpoint.Coronary artery disease: Stable,no evidence of angina on recent history.07/11/15 LHC [...] or concerns.Sukhwinder Soto M.D.[facility] Dahl of Cardiovascular MedicineGrant Hospitalrt and Vascular InstituteBetty Ville [address].[place], [place]Ivjb[address]Qvjsnt: [phone] Referring Provider: RYLAN HOGAN [[id number]]Allergies As of Date: 11/15/2016(No Known Allergies)Date Reviewed: 11/15/2016Reviewed by: Nico Starkey (Rn) LAITH Aguilar - Fully AssessedReason for Visit: Cardiac Clearance [4105]Primary Visit Diagnosis:Atherosclerosis of [place] coronary artery of [place] heart without angina pectoris [I25.10] Other Visit Diagnoses:Preoperative cardiovascular examination [Z01.810] Essential hypertension [I10] Systolic heart failure, unspecified heart failure chronicity (HCC) [I50.20]Prescriptions as of 11/15/2016 Sig: SPIRONOLACTONE 50 MG TABLET Take 1 tablet by mouth once d* ISOSORBIDE MONONITRATE ER 30 * Take 1 tablet by mouth once d* BUDESONIDE- FORMOTEROL HFA 160* Inhale 2 Puffs as instructed * IRBESARTAN 300 MG TABLET Take 0.5 tablets by mouth david* ASPIRIN 81 MG TABLET,DELAYED * Take 1 tablet by mouth once d* ATORVASTATIN 40 MG TABLET Take 1 tablet by mouth once d* METOPROLOL SUCCINATE ER 100 M* Take 1 tablet bymouth once d* PROAIR HFA INHALATION Inhale as instructed.Problem List As Of Date 11/15/2016 Noted Resolved Preoperative cardiovascular examination [Z01.81*INVALID FOR* HTN (hypertension) [I10] INVALID FOR* Atherosclerosis of [place] coronary artery of na*INVALID FOR* Acute on chronic systolic congestive heart fail*INVALID FOR* Abnormal stress test [R94.39] INVALID FOR* Chronic systolic congestive heart failure (HCC)*INVALID FOR* Dyspnea, unspecified [R06.00] INVALID FOR* Bilateral low back pain with sciatica [M54.40] INVALID FOR* Tachycardia [R00.0] INVALID FOR*Disposition: Return in about 6 months (around 05/18/2017).Follow-up and Disposition History RecordedEncounter Number: [id number] Status:Closed by SUKHWINDER SOTO MD on 11/15/16[facility] [id number] ID: [id number]: Sukhwinder SotoService: (none)Author Type: PhysicianType: Progress NotesFiled: 11/15/2016 9:39 AMNote Text:Heart and Vascular InstituteTrigg County Hospital Elayne [facility] Department ofCardiovascular MedicineOUTPATIENT VISIT DATE 11/15/16OUTPATIENT VISIT TYPEESTABLISHEDPRIMARY CARE PHYSICIAN:EDIE Guthrie[address] [place] [address]Cdhmb: [phone]: [phone] COMPLAINT:Preoperative risk assessmentHISTORY OF PRESENT ILLNESS:Abraham Harry [...] in LAD/left circumflex. EF about 40%.- Cardiomyopathy ([facility]) 07/03/2015 EF 35?40%. Nonischemic- CHF (congestive heart failure) ([facility]) 07/11/15 EF 40%. EF improved to 50% on 10/17/15.- COPD (chronic obstructive pulmonary disease) ([facility])- HTN (hypertension)- Obesity- Obstructive sleep apnea- Plantar fasciitis Right footPAST SURGICAL [id number]: HERNIA REPAIR HXNo date: PAST SURGICAL HISTORY [...] @ 46 heart aneurysm Heart Father Comment: MA x 4ALLERGIES:ALLERGIESNo KnownAllergiesMEDICATIONS:spironolactone (ALDACTONE) 50 mg tablet Take 1 tablet by mouth once daily.isosorbide mononitrate ER (IMDUR) 30 mg 24 hr tablet Take 1 tablet bymouth once daily.budesonide-formoterol (SYMBICORT) 160-4.5 mcg/actuation inhaler Inhale 2Puffs as instructed twice daily.irbesartan (AVAPRO) 300 mg tablet Take 0.5 tablets by mouth daily atbedtime.aspirin, enteric coated (ASPIR-LOW) 81mg EC tablet Take 1 tablet by mouthonce [...] Negative for: Anxiety, depressionSKIN: Negative for: Rashes, itchingHEMATOLOGICAL/LYMPHATIC: Negative for: Easy bruising, easy bleeding,p ainful lymph nodesI personally interviewed, confirmed and edited the above information ifobtained by others.PHYSICAL EXAMINATION:BP 147/97 Pulse 80 Resp 18 Ht 180.3 cm (5' 11 ) Wt 115.2 kg (254lb) SpO2 96% BMI 35.43 kg/d2Ylyrtru: Well appearing, in no acute distress. ObeseNeuro: Oriented to person, place and time, alert, cooperative.Eyes: Extra ocular movements intact, pupils react tolightNeck: No jugular venous distention, no palpable thyromegaly.Heart: Regular rhythm, S1, S2 normal, no S3, no S4. No murmur.Lungs: Clear to auscultation bilaterally. Good respiratory effort.Abdomen: Soft, nontender, bowel sounds normal, no palpablehepatosplenomegalySkin: No clubbing, no cyanosis.Extremities: Normal pulses in distal lower extremities. Absent lowerextremity edemaCARDIOVASCULAR MEDICINE TESTING:Electrocardiogram: 11/10/16 Sinus, occasional PVCs, inferior Q wavesEchocardiogram: /UMMARY/CONCLUSION:1. Normal left ventricular size with low normal [...] have personally reviewed the above Cardiovascular Medicine Testing.IMPRESSION/PLAN:Abraham Harry is a 56year old male with history of CAD, systolic HF,HTN here for follow upPreoperative risk assessment for noncardiac surgery: Per ACC/AHAguidelines, this is a moderate risk surgery planned. Functional capacityis good (>4 mets). No active cardiac conditions (decompensated valvularheart disease, decompensated heart failure, acute coronary syndromeincluding unstable angina, uncontrolled significant ar rhythmia). Clinicalrisk factors: CVA no; CHF yes; known CAD yes; DM no; Cr>2 no. The patientdoesnot meet criteria for further diagnostic cardiovascular testing andpatient may proceed with surgerywith low but acceptable risk forperioperative cardiovascular events. OK to stop aspirin 7 days beforesurgery and resume as soon as able from a bleeding standpoint.Coronary artery disease: Stable, no e vidence of angina on recent history.07/11/15 LHC shows distal RCA 60-70% stenosis. I have recommended the ATPIII guidelines that suggest a multifactorial approach to lifestylemodification including a low fat (reduced intake of saturated fats (< 7%of total energy intake) and cholesterol (< 200 mg/d)) and low sodium diet,weight management, and moderate aerobic exercise >150 minutes per weekastolerated. Continue aspirin and statin, see above for perioperativeantiplatelet managementHeart failure: NYHA functional class II / ACC AHA class C systolic heartfailure that has normalized, most recent LVEF 50%. Pharmacotherapyincludes ARB, beta avani, long acting nitrate, aldactone. Stablesymptoms at home. No change in pharmacotherapy today. Reinforced lowsodium diet. Euvolemic.Disposition:Follow up in clinic in 6 months. Pending studies: noneCONTACT INFORMATION:Thank you for allowing usto assist in the care your patient. As alwaysplease do not hesitate to contact us with further questions or concerns.Sukhwinder Soto M.D.Dale Chavezpartment of Cardiovascular MedicineGrant Hospitalrt and Vascular InstituteBetty Ville [address], [place] [address]Hmwlhp: [phone] NormalCDayton Children's Hospital Vital Signs Date TimeVital SignValuePerforming HtidltklrRrettfqt24-56-0991 13:02-0400Body umvafdbvtfs46.2 [degF]Kaleb UniYu Work Phone: [phone]10-07-2025 13:02-0400Diastolic blood xwwuhxgi61 mm[Hg]Kaleb GenomOncologyS Work Phone: [phone] [place], [place] [address]10-07-2025 13:02-0400Heart rate95 /minYixue GenomOncologyS Work Phone: [phone]10-07-2025 13:02-0400Systolic blood astmrjrr847 mm[Hg]Kaleb UniYu Work Phone: [phone])[address]09-18-2025 13:33-0400Body .3 cmRey Leiva DO Work Phone: [facility]09-18-2025 13:33-0400 Body mass index (BMI) [Ratio]36.68 kg/r4WgkrbhaRey Leiva DO Work Phone: [facility]09-18-2025 13:33-0400 Body .3 kgRey Leiva DO Work Phone: [facility]09-18-2025 13:33-0400 Diastolic blood eifsolfd37 mm[Hg]Rey Leiva DO Work Phone: [facility]09-18-2025 13:33-0400 Heart rate85 /Keny Leiva DO Work Phone: [facility]09-18-2025 13:33-0400 Systolic blood wfcwwebl396 mm[Hg]Rey Leiva DO Work Phone: [facility]02-24-2025 14:40-0500 Body svryva818.34 cmM[facility]02-24-2025 14:40-0500Body mass index (BMI) [Ratio]37.5 kg/z0BptfbjhaxMorrow County Hospital02-24-2025 14:40-0500Body ixtfbb362.01 kgMorrow County Hospital02-24-2025 14:40-0500Diastolic blood vyspjhrx05 mm[Hg][facility] 06-25-2024 14:40-0500Heart rate98 /[facility] 06-25-2024 14:40-0500Respiratory rate20 /[facility] 06-25-2024 14:40-3005AwA6% (BldA) [Mass fraction]98 %[facility]02-24-2025 14:40-0500Systolic blood mm[Hg][facility]12-13-2024 10:20-0500Diastolic blood mm[Hg]Nicanor Calvo [employer] Work Phone: [facility]12-13-2024 10:20-0500 Systolic blood mm[Hg]Nicanor Calvo [employer] V[employer] Work Phone: [facility]12-13-2024 09:59-0500 Heart rate82 /minDonna Calvo [employer] V[employer]ER[employer] Work Phone: [phone])[address] [place], [place] 4984012-13-2024 09:53-0500 Body uezbmr009.3 cmNicanor Calvo CHECK VIEWER[employer] Work Phone: [phone])[address] [place], [place] 4984012-13-2024 09:53-0500 Body mass index (BMI) [Ratio]37.38 kg/e1JnytjNicanor Calvo [employer] VIEW[employer]ER Work Phone: [phone] [place], [place] 4984012-13-2024 09:53-0500 Body lkettg048.56 kgNicanor Calvo [employer] V[employer]ER[employer] SANDER Work Phone: [phone]09-17-2024 15:06-0400 Diastolic blood jyurvycr01 mm[Hg]Rey Leiva DO Work Phone: [phone]09-17-2024 15:06-0400 Heart rate90 /minSavannahellen Leiva DO Work Phone: [phone])[address]09-17-2024 15:06-0400 Systolic blood hnnqsoss152 mm[Hg]Rey Leiva DO Work Phone: [phone]09-17-2024 14:10-0400 Body pwdlka113.1 cmWimadyjignesh Leiva DO Work Phone: [phone]09-17-2024 14:10-0400 Body mass index (BMI) [Ratio]37.2 kg/q7Rwvugmg Cali DO Work Phone: [phone] [place], [place] 4984009-17-2024 14:10-0400 Body .3 kgWimadyjignesh Leiva DO Work Phone: [phone] [place], [place] 4984008-26-2024 14:04-0400 Body .34 cmDO Nirav [employer] Work Phone: [facility]08-26-2024 14:04-0400 Body mass index (BMI) [Ratio]36.5 kg/m2DO [employer] Work Phone: [phone]08-26-2024 14:04-0400 Body xqvnwljvlsi50.2 [degF]DO Nirav House Work Phone: 1([phone])[address] [place], [place] 4521108-26-2024 14:04-0400 Body .84 kgDO Nirav House Work Phone: [phone])[address] [place], [place] 4521108-26-2024 14:04-0400 Diastolic blood mm[Hg]DO Nirav House Work Phone: [phone])[address] [place], [place] 4521108-26-2024 14:04-0400 Heart rate88 /minDO Nirav House Work Phone: 1(658)[address] [place], [place] 4521108-26-2024 14:04-0400 Respiratory rate20 /minDO Nirav House Work Phone: [phone])[address] [place], [place] 4521108-26-2024 14:04-0400 SaO2% (BldA) [Mass fraction]97 %DO Nirav House Work Phone: [phone])[address] [place], [place] 4521108-26-2024 14:04-0400 Systolic blood hrzpdfwu233 mm[Hg]DO Nirav House Work Phone: 1(271)[address] [place], [place] 4521108-08-2024 10:03-0400 Diastolic blood glpwqqua79 mm[Hg]DO Nirav House Work Phone: 1([phone])[address] [place], [place] 4521108-08-2024 10:03-0400 Heart rate85 /minDO Nirav House Work Phone: 1(487)[address] [place], [place] 4521108-08-2024 10:03-0400 Respiratory rate20 /minDO Nirav House Work Phone: [phone])[address] [place], [place] 4521108-08-2024 10:03-0400 SaO2% (BldA) [Mass fraction]100 %DO Nirav House Work Phone: 1(247)[address] [place], [place] 4521108-08-2024 10:03-0400 Systolic blood mcmbizwa969 mm[Hg]DO Nirav House Work Phone: 1(197)[address] [place], [place] 4521108-08-2024 06:51-0400 Body ucihnt333.34 cmDO Nirav Cain Work Phone: [facility]08-08-2024 06:51-0400 Body gokros711.93 kgDO Nirav Cain Work Phone: [facility]05-20-2024 13:25-0400 Body mbupth628.34 cmMD Marbin Ceballos Work Phone: [phone]05-20-2024 13:25-0400 Body mass index (BMI) [Ratio]37 kg/m2MD Marbin Ceballos Work Phone: [phone]05-20-2024 13:25-0400 Body gucntqfpbco25.1 [degF]MD Marbin Ceballos Work Phone: [phone]05-20-2024 13:25-0400 Body .65 kgMD Marbin Ceballos Work Phone: [phone]78[facility]05-20-2024 13:25-0400 Diastolic blood mm[Hg]MD Marbin Ceballos Work Phone: [phone]05-20-2024 13:25-0400 Heart rate84 /minMD Marbin Ceballos Work Phone: [phone]62[facility]05-20-2024 13:25-0400 Respiratory rate20 /minMD Marbin Ceballos Work Phone: [phone])267-[address] [place], [place] [address]05-20-2024 13:25-0400 SaO2% (BldA) [Mass fraction]98 %MD Marbin Ceballos Work Phone: [phone]05-20-2024 13:25-0400 Systolic blood urvthsgp170 mm[Hg]MD Marbin Ceballos Work Phone: [phone]04-02-2024 13:54-0400 Blood Pressure LocationMicelisha CEBALLOS General Surgery Xhmjjimy85-88-8992 13:54-0400Diastolic blood ujkqfips57 mm[Hg]Marbin NILL [facility] Yiiaskjs84-53-9024 13:54-0400Heart rate 72 /minMichael NILL [facility] Rnrovjex51-81-8521 13:54-0400 Respiratory rate16 /minMichael NILL [facility] Kpvjnctv79-81-5397 13:54-0400Systolic blood tkluuqlq899 mm[Hg]Marbin NILL [facility] Pmohlobx44-20-8812 13:39-0400Blood Pressure LocationMichael NILL [facility] Nixlgetb67-79-5259 13:39-0400Diastolic blood iidofsxb06 mm[Hg]Marbin NILL [facility] Dhsvslrm05-70-3909 13:39-0400Heart rate 72 /minMichael NILL [facility] Ksgfsmur91-53-9271 13:39-0400 Respiratory rate16 /minMichael NILL [facility] Jkgofscc57-20-1568 13:39-0400Systolic blood aomelvxq132 mm[Hg][facility]bin [facility]-21-2023 13:15-0500Body ujjebu295.34 cmChan Taylor Other [employer] Other 11-21-2023 13:15-0500Body mass index (BMI) [Ratio] 36.51 kg/n6UyzdvChan Taylor Other [employer] Other 11-21-2023 13:15-0500Body .1 [degF]Chan Taylor Other [employer] Other 11-21-2023 13:15-0500Body vulrwt049.75 kgChan Taylor Other [employer] Other 11-21-2023 13:15-0500Diastolic blood mm[Hg] Chan Taylor Other [employer] Other 11-21-2023 13:15-0500Respiratory rate20 /minChan Taylor Other [employer] Other 11-21-2023 13:15-9971DqL8% (BldA) [Mass fraction]98 % Chan Taylor Other [employer] Other 11-21-2023 13:15-0500Systolic blood dvkhdako812 mm[Hg] Chan Taylor Other [employer] Other 09-28-2023 08:32-0400Body fysfki621.34 cmCharles Hoods Work Phone: [facility] Work Phone: 1(532) 857-660209-28-2023 08:32-0400Body mass index (BMI) [Ratio] 35.71 kg/v3Sgrzgmv Hoods Work Phone: [facility] Work Phone: 1([phone]) 780-745209-28-2023 08:32-0400Body surface area Derived from formula2.34 h2Nhtnrce Hoods Work Phone: [facility] Work Phone: 1(150) 770-744809-28-2023 08:32-0400Body ifknuq901.12 kgCharles Hoods Work Phone: [facility] Work Phone: 1(305) 427-120809-28-2023 08:32-0400Diastolic blood nkbbfepf24 mm[Hg] Nirav P House Work Phone: [facility] Work Phone: 1([phone]) 250-496409-28-2023 08:32-0400Heart rate80 /minChamarion P House Work Phone: [facility] Work Phone: 1(543) 656-599109-28-2023 08:32-0400Systolic blood untjjind815 mm[Hg] Nirav P House Work Phone: [facility] Work Phone: [phone]802 07:31-0400Body jiqcgwenbre59.2 [degF] Corie Bonilla MD Work Phone: [employer] [facility]ITALPanjoOLZYYB95-07-8827 07:31-0400Diastolic blood nwdjyntt65 mm[Hg]Corie Bonilla MD Work Phone: [facility]ITALPanjoYSWNTY25-00-2997 07:31-0400Heart rate74 /Caroline Bonilla MD Work Phone: [facility]ITALPanjoXCVKYC07-09-3874 07:31-0400 Respiratory rate20 /Caroline Bonilla MD Work Phone: [phone]ITALPanjoMTGFVR92-23-9020 07:31-5185YaE6% (BldA) [Mass fraction]97 %Corie Bonilla MD Work Phone: [facility]ITALPanjoTYZPHX07-59-4294 07:31-0400Systolic blood soevvycv591 mm[Hg]Corie Bonilla MD Work Phone: [employer] [facility]ITALSelect[facility] RAPFYA92-17-8685 15:07-0500Body nkgfpi096.07 cmCharles P House Work Phone: 1([phone]-C[employer]oz [place] [employer] [address] DO Work Phone: 1(297) 574-522512-15-2022 15:07-0500Body mass index (BMI) [Ratio]37.8 kg/x2Dkblrgh P House Work Phone: 1([phone]-[employer]v[facility] [address] DO Work Phone: 1(876) 945-194712-15-2022 15:07-0500Body surface area Derived from formula2.37 j7Ccjwpaa P House Work Phone: 1([phone]) [phone]-[employer] [place] [facility] [address] DO Work Phone: 1(656) 289-865112-15-2022 15:07-0500Body hwtrag815.2 kgCharles P House Work Phone: 1(658) [phone]-Ueuny [place] [facility] [address] DO Work Phone: 1(953) 425-561412-15-2022 15:07-0500Diastolic blood apxihpjh55 mm[Hg] Nirav House Work Phone: 1([phone]) [phone]-Bykxw [place] [facility] [address] DO Work Phone: 1(510) 140-511512-15-2022 15:07-0500Heart rate96 /minCharles House Work Phone: 1([phone]) [phone]-Ioauu [place] [facility] 250 DO Work Phone: [phone] 322-425312-15-2022 15:07-0500Systolic blood irzrwxrw890 mm[Hg] Nirav House Work Phone: [phone]-Lyhql [facility] DO Work Phone: [phone] 15:40-0500Body mdehjm723.34 cmDouglas Hoy Work Phone: [phone]-Qclla [facility] DO Work Phone: [phone] 15:40-0500Body mass index (BMI) [Ratio] 37.94 kg/b6Wzymixv Hoy Work Phone: [phone]-Qyzil [facility] DO Work Phone: [phone] 15:40-0500Body surface area Derived from formula2.4 j5Qwpdqab Hoy Work Phone: [phone]-Adnzj [facility] [facility] DO Work Phone: [phone] 154-286712-16-2021 15:40-0500Body jtporp219.38 kgDouglas M Hoy Work Phone: [phone]-Gznzn [facility] DO Work Phone: [phone] 496-484412-16-2021 15:40-0500Diastolic blood sofwtxwx32 mm[Hg] Beth M Hoy Work Phone: [phone]-Nkxvv [facility] DO Work Phone: [phone] 15:40-0500Heart rate90 /minDouglas M Hoy Work Phone: [phone]-Fnjpf [facility] [facility] DO Work Phone: [phone] 15:40-0500Systolic blood wvjrapav249 mm[Hg] Beth M Hoy Work Phone: [phone]-Lbrtb [facility] DO Work Phone: Encounters Encounter DateEncounter TypeCare ProviderFacilityStart: 03-04-2025 End: 44-18-8545rkrowquiglUJPGBQ [facility]art: 02-05-2025 End: 90-42-4877Girkmjrqj identifierYixclementina Angelito DDS Work Phone: [facility] ClinicStart: 66-48-6288vlwrzjzvloPoogy Angelito [facility]ITALtart: 01-28-2025 End: 48-03-2793hhhzwbfmzdOMCSF Centervilletart: 01-17-2025 End: 32-36-9549Xqkkcd outpatient visit 25 minutesJenniferdalia Leiva DO Work Phone: FirelandsComment on above:Encounter for pre- operative cardiovascular clearance; ASHD (arteriosclerotic heart disease); Hyperlipidemia, unspecified hyperlipidemia type; Essential hypertension; Asthma, unspecified asthma severity, unspecified whether complicated, unspecified whether persistent (HHS-HCC); Chronic obstructive pulmonary disease, unspecified COPD type (Multi); Former smoker; BMI 36.0-36.9,adultStart: 01-17-2025 End: 67-26-5796Rhnzatcglsyy stateRey Leiva DO Work Phone: [facility] HospitalStart: 01-17-2025 End: 77-25-3076menzgulpfkEQEDXZU [facility] AmbulatoryStart: 01-17-2025 End: 67-40-7928Aajywtgnn for preprocedural cardiovascular examinationCentra [facility] AmbulatoryStart: 01-09-2025 End: 32-66-9364wjpsmexkqgBckozqa R NILLFacility: BellevueStart: 01-09-2025 End: 37-64-1237Dtpxurq encounter procedureMichael R NILL [phone]-UnbtsLouis [facility] Surgery Shahnaz Start: 12-26-2024 End: 65-47-1285rqalbeqdgbBugqjae HoyFacility: ueStart: 12-26-2024 End: 02-54-5848Wqiikoy encounter procedureMichael R NILL [phone]-NrqjyCity [facility] [place] Start: 06-25-2024 End: 00-21-2179kygkiuaxqdHgwgjmzugBarberton Citizens Hospital Work Phone: Start: 06-25-2024 End: 04-53-7528Oivjxsz encounter procedureAt[facility] Work Phone: Start: 04-13-2024 End: 82-91-0953Auqbmn outpatient visit 10 Alise Calvo APRN-CAR SANDER Work Phone: [facility] AnnistonComment on above:Essential hypertension Start: 04-13-2024 End: 64-23-9522jveupgbzdgCEYYG K [facility] AmbulatoryStart: 03-19-2024 End: 93-53-2732vmcclbejcpFEJKJRP P HOUSEFacility:[facility] ClinicStart: 01-17-2024 End: 02-46-2486Wuutyr outpatient visit 25 minutesRey Leiva DO Work Phone: uh [facility] HarrisburgComkalkaska memorial health center on above:ASHD (arteriosclerotic heart disease); Chronic obstructive pulmonary disease, unspecified COPD type (Multi); Essential hypertension; Hyperlipidemia, unspecified hyperlipidemia type; Cerebrovascular accident (CVA), unspecified mechanism (Multi); BMI 37.0-37.9, adult; Former smokerStart: 01-17-2024 End: 63-78-8807Mcjxzfi encounter procedureDO Nirav Cain Work Phone: [phone]-[facility] [place] Work Phone: Start: 01-17-2024 End: 62-69-9557kkyovmsbvuPL Nirav Kimball Work Phone: [phone] [place] [address] Work Phone: Start: 12-26-2023 End: 03-27-3874qvblowmhuoRR Nirav Kimball Work Phone: [phone] [place] [address] Work Phone: Start: 12-26-2023 End: 89-20-4193Ampouis encounter procedureDO Nirav Cain Work Phone: [facility] Pul[facility] Disease Work Phone: Start: 12-15-2023 End: 13-00-2376hmiveshzbkUM NIRAV [facility]OS[facility]ITALFacility:[facility] ClinicStart: 67-59-5648Vrw-patient / Non-visitDO Nirav Cain Work Phone: [facility] Gastroenter[facility] Work Phone: Start: 38-35-8353Gwm-patient / Non-visitDO Nirav Cain Work Phone: [facility] Work Phone: Start: 12-08-2023 End: 44-91-0872Auhhtywda to same day surgery centerDO Nirav Cain Work Phone: [phone] Work Phone: Start: 12-08-2023 End: 95-37-6345zvthlnotggBK Charles House Work Phone: [facility] Work Phone: Start: 10-10-2023 End: 36-37-4360kfebedphvrSF NIRAV Mayers HOUSEFacility:[facility] ClinicStart: 10-05-2023 End: 30-36-3622Nncodwd encounter procedureMichael R NILL [phone]-Upcxg General Surgery Shahnaz Start: 09-21-2023 End: 50-87-1972Hfhpsea encounter procedureMichael R NILL [phone]-Kkdin General Surgery Shahnaz Start: 09-19-2023 End: 73-33-8097wdbwacjvflWA Marbin Nill Work Phone: [facility] Work Phone: Start: 09-19-2023 End: 94-11-8703Yphndgs encounter procedureMD Marbin Nill Work Phone: [facility] Work Phone: Start: 09-14-2023 End: 35-70-3041zocweepgnrAqxecps R NillFacility:[facility] Hospitaltart: 09-14-2023 End: 93-76-8479Izcudbjb ReferredMD Marbin Nill Work Phone: [facility] Path Spec [place] HospStart: 08-02-2023 End: 94-93-7075Zdwuetd encounter procedureMichael R NILL General Surgery Nill/Said Shahnaz Start: 07-12-2023 End: 62-27-0112Frbtsgi encounter procedureMichael R NILL General Surgery Nill/Said Shahnaz Start: 04-05-2023 End: 60-32-0471Wcgrjxb encounter procedureDO Nirav Cain Work Phone: [facility] [place] Work Phone: Start: 04-05-2023 End: 73-60-1804ljatsassgnVI Nirav Cain Work Phone: [facility] Work Phone: Start: 04-04-2023 End: 95-03-5981xdhntjekwmNpokv Brandon Other [facility] [employer] Other Start: 23-96-2770Hhjthdnal encounterKaannamarie TaylorFPG Pulmonary DiseaseStart: 31-95-7042Rkiixv outpatient visit 25 minutesAtrium Health Shivaniban FPG Pulmonary DiseaseStart: 03-22-2023 End: 16-48-1690Cqmqcsb encounter procedureDO Nirav Cain Work Phone: [facility] [place] Work Phone: Start: 03-22-2023 End: 10-01-7226gpgtktsujjYY Nirva Cain Work Phone: [facility] Work Phone: Start: 09-77-3003wnejapbbbeHtVero Baca IIFacility:[id number]: 01-25-2023 End: 27-42-8436Njbjxvuzmx and management of inpatientWASEEM [facility] Hospitaltart: 01-25-2023 End: 35-04-4977Leufdnfigu and management of inpatientScitlali Bonilla MD Work Phone: stvZ 3C ObservationStart: 01-19-2023 End: 01-07-5700Npxvwtv encounter procedureMichael R NILL General Surgery Nill/Said Shahnaz Start: 96-34-8802Mcbagmd encounter procedureCharles Talib Cain Work Phone: [phone]-Apfzi [facility] DO Work Phone: Start: 89-93-0670ybgxqobpvvUy. Nirav Cain Facility:[id number]: 20-97-0939Ujhhay outpatient visit 25 minutesCharjessica Cain Work Phone: [facility] Work Phone: Start: 97-97-2650sbigovhvnqHx. Rey Baca IIFacility:[id number]: 09-30-2022 End: 64-60-4378dnqkwewephRU Nirav Kimball Work Phone: [facility] Work Phone: Start: 09-30-2022 End: 34-20-8955Ihgrzzj encounter procedureDO Nirav Cain Work Phone: [facility]-Respiratory Therapy Work Phone: Start: 42-64-6152Rwlwlm outpatient visit 25 minutes Nirav Cain Work Phone: [phone]-Tpmez [facility] DO Work Phone: Start: 42-63-6365atvqaddlaxMg. Rey Baca IIFacility:[id number]: 04-01-2022 End: 63-63-5943lwuydeyilyXkxop BrandBeau Other [place] [employer] Other Start: 47-10-5318Pywckhgbo encounterKaannamarie ChabanFPG Pulmonary DiseaseStart: 19-96-3935Uv RenewalDouglas M Hoy Work Phone: [phone]-Yfwwv [facility] DO Work Phone: Start: 75-67-4124Fhkuycjgd for general adult medical examination without abnormal findingsDR NIRAV [facility] Campustart: 02-18-2022 End: 81-40-1119hcsuvtxovySG NIRAV WEST HALIFAXFacility:B0Lmclt: 02-18-2022 End: 75-68-1529Paxzufyzp for general adult medical examination without abnormal findingsDR NIRAV CAINFacility:T2Nqouv: 11-05-2021 End: 44-29-0149wlvzwmqtslGczve Chaban Other [employer] Other Start: 82-71-1719Andpxefmx encounterKamal ChabanFPG Pulmonary DiseaseStart: 10-23-2021 End: 47-77-3788gtotqoldruJseov Chaban Other [facility] [employer] Other Start: 64-65-3206Ahcugtpyh encounterKamal ChabanFPG Pulmonary DiseaseStart: 07-29-2021 End: 00-93-3544qpbvzfovfjNadlk Chaban Other [employer]Ne[employer] Other Start: 19-93-6886Ujrmmk outpatient visit 25 minutes Kamal ChabanFPG Pulmonary DiseaseStart: 04-23-2021 End: 27-02-2691eojnvrctxfSW CHARLES WEST HALIFAXFacility:M5Bivht: 13-11-4748Igktql outpatient visit 25 minutesBeth Phelps Work Phone: [phone]-Gzxlu [facility] [facility] DO Work Phone: Start: 80-27-5301Ag Yi Baca MD Work Phone: [facility] [facility] DO Work Phone: Start: 87-39-9680haegjsfdutBNClayton CAINFacility:H1 Start: 06-17-2017 End: 79-53-9620CkybkvfhtwAAOFXDMercer County Community HospitalStart: 05-31-2017 End: 97-11-0610QdzysupinyLPDONPMercer County Community HospitalStart: 11-15-2016 End: 93-35-5037UgqmsxmfgzZMUJTYMercer County Community Hospital Procedures DateProcedureProcedure DetailPerforming ClinicianStart: 02-05-2025 End: 78-68-5557dnugjjolfur counseling for control of dental diseaseYixue Angelito ELLISS Work Phone: Start: 02-05-2025 End: 17-26-8869jrnb hygiene instructionsYixue Angelito ELLISS Work Phone: Start: 02-05-2025 End: 16-02-0805vshbnuvryjy - adultYixue Angelito ELLISS Work Phone: Start: 54-19-3037Rmt routine ecg w/least 12 lds w/i&r Rey S Cali LADD Work Phone: Start: 02-24-4867Xkqybjaqu colonoscopyDO [facility] Work Phone: Start: 30-02-5675UnacznnvpitMthvbkb Cali LADD Work Phone: Start: 41-36-7386Zkywht of incisional herniaMichael NILL Start: 03-78-8070Vgzqktdjdfruy syst imaging including gallbladderAdri Estrella MD Work Phone: Start: 99-64-9448Poq abdomen w/o contrast material Corie Bonilla MD Work Phone: Start: 56-80-8068Gvenukefqdyot metabolic panelScitlali Bonilla MD Work Phone: Start: 01-25-2023 End: 09-91-2462OPRUIDX, BLOOD 1Hmarcial Liao MD Work Phone: Start: 07-42-8896Ucmgexfqfbohl metabolic panelScitlali Bonilla MD Work Phone: Start: 00-04-4460Xqvzqgv of cholecystectomyHistory of cholecystectomyCorie Bonilla MD Work Phone: Start: 45-43-2754Gqopjyvgrbjt cholecystectomyMichael NILL Start: 22-43-6425Vjccq chest X-rayDO [facility] Work Phone: Start: 34-12-2215OTO screeningDR [facility] HOSPITALComment on above:Performed By: #### PSAD #### [facility] [address] [place] [address] Dr. Demetria JainStart: 50-86-0772YrrckdkkpwuUczzssr NILL Comment on above:Colon polypStart: 93-46-7793Btvoy shoulder arthroscopy with extensive glenohumeral debridement, subacromial decompression, mini-open rotator cuff repairMichael NILL Start: 22-46-2819Zy/Lt Heart CatheterizationMichael NILL Cardiac catheterizationDouglas M Hoy Work Phone: ColonoscopyMichael NILL Excision of basal cell carcinomaMichael NILL Comment on above:nasolabial foldHernia repairDouglas M Hoy Work Phone: LaparoscopyDouglas M Hoy Work Phone: Operation on skinCharles P House Work Phone: Operative procedure on footDouglas M Hoy Work Phone: Repair of right inguinal herniaMichael NILL Small intestine excisionMichael NILL TonsillectomyDouglas M Hoy Work Phone: TonsillectomyMichael NILL Total colonoscopyDouglas M Hoy Work Phone: Comment on above:august 30, 2020; Plan of Treatment DateCare ActivityDetailAuthorStart: 26-04-3106Uhlbpffqx for malignant neoplasm of colonMcKitrick HospitalStart: 81-78-8161BJyX/Tdap/Td Vaccines (2 - Td or Tdap)DTaP/Tdap/Td Vaccines (2 - Td or Tdap)[facility]: 01-14-2026 End: 13-72-1975Viclult encounter rylhoeiwn27/15/2026 2:20 PM EDT Office Visit [address] [place] [place] [address] Rey Leiva, DO [address] [place] [address] [facility]: 17-74-0499Cinothq, [facility] Work Phone: Start: 72-62-3318BzuwCraig Hospital Work Phone: Start: 01-17-2025 End: 39-87-5162Iuolqau encounter rowhdymiw70/18/2025 1:30 PM EDT Office Visit [address] [place] [address] Rey Leiva, DO [address] [place] [address] [facility]: 27-08-0300JBQXV-19 Vaccine ( season)COVID-19 Vaccine ( season)[facility]: 16-00-1306Mogzigakj vaccinationInfluenza Vaccine (#1)[facility]: 18-86-4497JJTTW-19 Vaccine ( season) COVID-19 Vaccine ( season)[facility]: 51-98-3168HKLWY-19 Vaccine ( season)COVID-19 Vaccine ( season)[facility]: 14-12-5989Krulvfias vaccination Influenza Vaccine (#1)[facility]: 12-08-2023 [facility]: 00-93-9611NayxnnjfaBarnesville Hospitaltart: 01-27-2023 End: 63-77-9357Yghznasqz to same day surgery xqbief9901/27/2023 11:00 AM EDT - 01/27/2023 12:30 PM EDT Surgery [facility] OR [address] [place] [address] Rodolfo Hernandez MD [address] [place] [address] ERCP ENDOSCOPIC RETROGRADE CHOLANGIOPANCREATOGRAPHY, STENT PLACEMENT (C-ARM)ST ORComment on above:ERCP ENDOSCOPIC RETROGRADE CHOLANGIOPANCREATOGRAPHY, STENT PLACEMENT (C-ARM)Start: 01-27-2023 End: 25-22-3350Tswr dx collection specimen brushing/washingERCP ENDOSCOPIC RETROGRADE CHOLANGIOPANCREATOGRAPHY Bile duct leak 01/27/2023 11:00 AM [facility]: 64-15-3119NXY, Provider: Rey Baca, Status: Pen, Time: 8:40 AMFUV, Provider: Rey Baca, Status: Pen, Time: 8:40 AMAbbott [facility] 250 DO Work Phone: Start: 00-34-4063Glhocvgec vaccinationFlu vaccine (#1) [facility]ITALStart: 09-12-2171OGR, Provider: Rey Baca, Status: Pen, Time: 9:50 AMFUV, Provider: Rey Baca, Status: Pen, Time: 9:50 [facility] 250 DO Work Phone: Start: 26-32-2888UCZ patients and/or patients aged 60+ years (1 - 1-dose 60+ series)RSV patients and/or patients aged 60+ years (1 - 1-dose 60+ series)[facility] HospitalStart: 20-87-1673BEF, Provider: Rey Baca, Status: Pen, Time: 3:30 PMFUV, Provider: Rey Baca, Status: Pen, Time: 3:30 PMMP-[place] [facility] [place] 250 DO Work Phone: Start: 09-53-6956BIU, Provider: Rey Baca, Status: Pen, Time: 3:30 PMFUV, Provider: Rey Baca, Status: Pen, Time: 3:30 PMMP-[facility] 250 DO Work Phone: Start: 10-41-5690ZJO, Provider: Rey Baca, Status: Pen, Time: 8:50 AMFUV, Provider: Rey Baca, Status: Pen, Time: 8:50 AMMP-[facility] 250 DO Work Phone: Start: 93-83-6971JOTQU-19 Vaccine (3 - Moderna series) COVID-19 Vaccine (3 - Moderna series)[facility]: 08-30-2020 EchocardiographyEchocardiogramUnKettering Health: 2012 Prostate specific antigen measurementPSA Prostate Cancer ScreeningProMedica Flower Hospitalart: 40-15-0455Gamphhso vaccine (1 of 2)Shingles vaccine (1 of 2)[facility]: 28-30-8192Nzjiyvcvm for malignant neoplasm of colonCarilion [facility]: 69-08-9215FCuR/Tdap/Td Vaccines (1 - Tdap)DTaP/Tdap/Td Vaccines (1 - Tdap)[facility] Start: 56-29-4874HIeZ/Tdap/Td vaccine (1 - Tdap)DTaP/Tdap/Td vaccine (1 - Tdap) [facility]: 36-08-3205Wjrednce mellitus screeningDiabetes ScreeningUniversity Hospitals [facility]: 12-43-5815Ovmtpcbeu C screening [facility]: 49-10-3515OMN screeningHIV screenCarilion [facility]wall [facility] Hospital: 15-41-5168Ezemvvqcyl ScreenDepression ScreenBON St. [facility]: 23-11-9188Tadgv panelLipidsBON St[facility]: 65-35-6197KYG Vaccines (1 of 1 - Standard series)MMR Vaccines (1 of 1 - Standard series)[facility]: 16-56-7042Uzzjwwiikv measurement Creatinine LevelUnKettering Health: 82-46-7186KYO screening HIV ScreeningUniversity Hospitals [facility]: 77-34-1609Fnelu panelLipid PanelUnKettering Health: 06-15-1963Medicare Annual Wellness VisitMedicare Annual Wellness Visit (AWV)[facility]: 96-10-8111Bteyybrhk measurementPotassium LevelUnTriHealth [facility] Start: 58-71-3147Buohuhpqr for malignant neoplasm of colonUnKettering Health: 64-37-8229Hgglnv Adult PhysicalYearly Adult Physical [facility]rick HospitalAlternaria alternata IgE Ab [Units/volume] in [facility] CenterAmerican house dust mite IgE Ab [Units/volume] in [facility] CenterAmerican Axson IgE Ab [Units/volume] in [facility] CenterAmerican Axson IgE Ab [Units/volume] in [facility] CenterAspergillus fumigatus IgE Ab [Units/volume] in [facility] CenterBermuda grass IgE Ab [Units/volume] in [facility] CenterBoxelder IgE Ab [Units/volume] in [facility] CenterCat dander IgG Ab [Units/volume] in [facility] End: 02-85-1652DDL W Auto Differential panel - BloodCBC with Auto Differential Lab Routine Daily for 3 Days starting 01/25/2023 until 01/27/2023, 2 completed [facility] [employer] on above:Daily for 3 Days starting 01/25/2023 until 01/27/2023, 2 completedCladosporium herbarum IgE Ab [Units/volume] in [facility] CenterCockroach IgE Ab [Units/volume] in [facility] HospitalCommon Ragweed IgE Ab [Units/volume] in [facility] End: 62-04-0578Iuhewmgtypknj metabolic 2000 panel - Serum or PlasmaComprehensive Metabolic Panel Lab Routine Daily for 3 Days starting 01/25/2023 until 01/27/2023, 2 completedBON [facility] on above:Daily for 3 Days starting 01/25/2023 until 01/27/2023, 2 completedCottonwood IgE Ab [Units/volume] in [facility] Medical CenterCulture, Blood 1BON [facility]ITA[facility]S HOSPITALDo dander IgE Ab [Units/volume] in [facility] CenterEuropean house dust mite IgE Ab [Units/volume] in [facility] CenterIgE [Units/volume] in Serum or [facility] HospitalIntermittent pulse oximetryPulse Oximetry Spot Check Respiratory Care Routine As Needed until discontinued starting 01/25/2023 [facility] on above:As Needed until discontinued starting 01/25/2023[place] Juniper IgE Ab [Units/volume] in [facility] CenterMouse urine proteins IgE Ab [Units/volume] in [facility] Oxygen therapy [Minimum Data Set]Initiate Oxygen Therapy Protocol Respiratory Care Routine As Needed until discontinued starting 01/25/2023 [facility] on above:As Needed until discontinued starting 01/25/2023atient EducationDiverticulosis (DC) Colon Polypectomy (DC) Know your [facility] Work Phone: Pecan or Clare Tree IgE Ab [Units/volume] in [facility] HospitalPenicillium notatum IgE Ab [Units/volume] in [facility] CenterRough Pigweed IgE Ab [Units/volume] in [facility] Hospitalaltwort IgE Ab [Units/volume] in [facility] Hospitalheep Southport IgE Ab [Units/volume] in [facility] Hospitalheep [place] IgE Ab [Units/volume] in Serum [facility] Hospitalilver Birch IgE Ab [Units/volume] in [facility] Hospitalilver Birch IgE Ab [Units/volume] in [facility] HospitalTimothy IgE Ab [Units/volume] in [facility] CenterWalnut IgE Ab [Units/volume] in [facility] CenterWhite Konstantin IgE Ab [Units/volume] in [facility] CenterWhite Konstantin IgE Ab [Units/volume] in [facility] White Elm IgG Ab [Units/volume] in [facility] CenterWhite mulberry IgE Ab [Units/volume] in [facility] CenterWhite mulberry IgE Ab [Units/volume] in [facility] CenterWhite Marion IgE Ab [Units/volume] in [facility] Immunizations Immunization DateImmunizationNotesCare EezhxqvgAfqphumn52-20-1933FNGGPVMOSWL SYNCYTIAL VIRUS (RSV), ELIGIBLE PTS, 0.5 ML (ABRYSVO)Rey Leiva DO Work Phone: [facility]08-12-2022 Pneumococcal conjugate vaccine, 20-valent (PREVNAR 20)Rey Leiva DO Work Phone: [facility] Work Phone: [phone]vad COVID-19 Vaccine 100 MCG/0.5ML Intramuscular SuspensionDouglas M Hoy Work Phone: General Surgery Jvlxlnmz98-82-2901Sfybhoy COVID-19 Vaccine 100 MCG/0.5ML Intramuscular SuspensionDouglas M Hoy Work Phone: [facility] Surgery Seaecagl66-01-8064shyhpomzecge polysaccharide vaccine, 23 valentDouglas M Hoy Work Phone: [phone]-YzuyrAbbott [facility] Hospital 250 DO Work Phone: [phone]) [phone]n vaccine recombinantWilliam Cali DO Work Phone: [facility] Work Phone: [phone]osu vaccine recombinantWilliam Cali DO Work Phone: [facility] Work Phone: [phone]cxzybboc polysaccharide vaccine, 23 valentWilliam Cali DO Work Phone: [facility] Work Phone: NEGATED: Highlighted row has not occurred!07-12-2023 influenza virus vaccine, unspecified formulationMichael NILL General Surgery Shahnaz Payers DatePayer CategoryPayerPolicy [id number] (Managed Care)[facility] [id number] Care ([facility] .[id number] Health InsuranceST. [facility] [id number] 2022- Present [address] [place], [place] [id number] 53-28-7353Kgybvyv Health [id number] 2020Medicare [id number] [id number] [id number] 2.16.840.1.102240.3.579.2.593 [id number] 2.16.840.1.958655.3.57[id number] 2.16.840.1.276164.3.57[id number] 2.16.840.1.902653.3.57[id number] 2.16.840.1.430283.3.57[id number] 2.16.840.1.823941.3.57[id number] 2.16.840.1.563091.3.57[id number] 2.16.840.1.095417.3.57[id number] 2.16.840.1.175035.3.57[id number] 2.16.840.1.868741.3.57[id number] 2.16.840.1.472243.3.57[id number] 2.16.840.1.178935.3.57[id number] 2.16.840.1.154225.3.57[id number] 2.16.840.1.495524.3.579.[id number] 2.16.840.1.[id number]-[id number] 2.16.840.[id number] 2.16.840.1.766856.3.579.2.531Unknown [id number] 2.16.840.1.4[id number] 2.16.840.1.7[id number] 2.16.840.1.281806.3.579.2.531 [id number] 2.16.840.1.395782.3.579.2.531Worker's [id number]-[id number] Social History DateTypeDetailFacilityStart: 01-26-2023 End: 90-49-7829Siddiece useCaffeine useMP-[facility] 250 DO Work Phone: Comment on above:1 pot decaf coffee daily;quit 2006 minimal smoker;1 pot coffee daily;Start: 01-26-2023 End: 63-47-4698Vqq [facility] At [facility] CenterStart: 09-01-2019 End: 31-11-8128Cdwqpqh smoking status NHISEx-smoker (finding)[facility] CenterStart: 91-50-1956Zvi Assigned At [facility] CenterStart: 26-30-8391Fwoddfl smoking statusNeverGeneral Surgery BellevueStart: 01-49-1970Dkqcmxz smoking status NHISNever smoked tobaccoCARILION [facility]AN[facility] Work Phone: Start: 01-26-2023 End: 18-07-0209Pasntlz use and exposureSmokeless tobacco non-userBON ST. RITA'S HOSPITALStart: 67-89-8290Ohu Assigned At BirthNot on fileBON ST. RITA'S HOSPITALStart: 05-02-1982 End: 59-34-2717Rtpoewi of tobacco useCurrent smokerUnTriHealth McCull[facility] Work Phone: Start: 05-02-1982 End: 50-15-4168Vrwnrvz of tobacco useCigarette SmokerUnTriHealth McCullough-[facility] Hospital Work Phone: Start: 04-13-2024 End: 92-98-4874Fqdnerczj beverage intakeCurrent drinker of alcohol (finding) [facility] Work Phone: Start: 55-63-3923Qdjgehi Commentoccasional cocktail [facility] Work Phone: Start: 01-07-2024 End: 53-31-0236Dfxxzego to SARS-CoV-2 (event)Not sureUnTriHealth McCullough-Hyde Memorial HospitalStart: 75-20-2442Muuyhdeie beverage intakeLifetime non-drinker (finding)[facility] Work Phone: Start: 04-28-2015 End: 50-80-2091FpqTyix (finding)[facility] [place] Start: 00-88-5002Iagwigc intakeAlcohol Use DetailsNorth General Hospital DistrictStart: 66-40-2075Gnnsnp OrientationStraight or heterosexualNorth General Hospital DistrictStart: 01-75-1839Gcvqll identity MaleCraig HospitalNEGATED: Highlighted rowStart: 02-05-2025 Tobacco smoking status NHISUnknown if ever smokedCraig HospitalNEGATED: Highlighted rowStart: 30-50-9373Mhfxykb of tobacco useCurrent non-smokerCraig Hospital Goals DatePatient GoalDesired Activity/State Functional Status KfnyXrfgqweeofLrryloRcfknhbd07-07-2134Vizhuxtmio StatusN/AGeneral Surgery Afvtcmyh93-76-9490Iqinzameyt StatusN/AGeneral Surgery Hmipgeld42-03-4528 Functional StatusN/AGeneral Surgery [facility] Clinical Notes 02-25-2016 to 02-13-2025 Note Date & IyeaNgeiWamsxpum34-29-0074 NoteWriter received vmail from patient requesting information about up coming procedure and PAT appt Lmom informing patient of appts as well informing him he is able to get lab testing done at [facility] appt or any day after 02/13/25 PAT: 03/04/25 Surgery[facility]25[facility]10[facility] History of Present illness Narrative* Encounter Date Complaint History Of Prese nt Illness JACOBY DOZIER [facility] Work Phone: 1(242) 413-997310-01-2025 NoteLmom for patient to return call to schedule procedure with Dr. Shaw of [facility]10-01-2025 NoteLmom for patient to return call to schedule surgery with of [facility]09-29-2025 NoteSubjective Patient ID: Abraham Harry is a 64 y.o. adult w/ PMH of COPD, CAD (on Plavix), Cholecystectomy and prior incisional hernia repair with mesh who presents for evaluation of recurrent incisional hernia. It appears that he underwent laparoscopic cholecystectomy and bowel resection at the same time for gangrenous cholecystitis in 12/2022. He then had an incisional hernia repair with mesh in 08/2023. He then had a recurrence of his hernia earlier this year. The hernia has increased in size and causes him significant pain. He also occasionally has difficulty with bowel movements. He recently had an episode of abdominal pain where he was not able to pass gas. Tolerating PO intake without nausea or vomiting. He has been able to reduce his hernia without issue thus far. He does not smoke or use recreational drugs. Review of Systems Constitutional: Negative. HENT: Negative. Respiratory: Negative. Cardiovascular: Negative. Gastrointestinal: Positive for abdominal pain and constipation. Genitourinary: Negative. Neurological: Negative. Hematological: Negative. Objective Visit Vitals BP (!) 163/98 (BP Location: Left arm, Patient Position: Sitting) Pulse 88 Temp 36.8 ???C (98.3 ???F) (Oral) Physical Exam Constitutional: General: Abraham is not in acute distress. Appearance: Normal appearance. HENT: Head: Normocephalic and atraumatic. Eyes: Conjunctiva/sclera: Conjunctivae normal. Cardiovascular: Rate and Rhythm: Normal rate. Pulses: Normal pulses. Pulmonary: Effort: Pulmonary effort is normal. No respiratory distress. Abdominal: General: Abdomen is flat. Palpations: Abdomen is soft. Tenderness: There is abdominal tenderness. Hernia: A hernia is present. Musculoskeletal: General: Normal range of motion. Skin: General: Skin is warm and dry. Neurological: General: No focal deficit present. Mental Status: Abraham is alert and oriented to person, place, and time. Psychiatric: Mood and Affect: Mood normal. Behavior: Behavior normal. Assessment/Plan Abraham Harry is a 64 y.o. w/ PMH of COPD, CAD (on Plavix), Cholecystectomy and prior incisional hernia repair with mesh who presents for evaluation of recurrent incisional hernia. Palpable midline incisional hernia with reducible bowel. Mild tenderness to deep palpation. Plan: Plan for robotic recurrent incisional hernia repair with mesh, possible mesh excision. Cardiac Clearance received from his [employer]ime [employer]at Tender, will need to stop plavix at least 5 days prior to surgery. Discussed signs/symptoms of incarcerated/strangulated hernia and advised to present to ED immediately if he notes these symptoms. We did discuss using stool softeners to avoid constipation prior to surgical intervention Nick Lancaster MD General Surgery PGY3 I saw and evaluated the patient, participating in the muñiz portions of the service. I have reviewed and supervised the patient visit with Nick Lancaster MD. I discussed the findings and therapeutic plan with Nick Lancaster MD. I agree with the findings, plan, and documentation. CT imaging independently interpreted and reviewed with patient. Recent labs and notes reviewed from 01/17/25. The benefits, risks and complications of the operation were explained to the patient including but not limited to bleeding, infection, injury to surrounding structures that may lead to further procedures/hospitalizations/drains and if not treated. Problem(s) addressed: Chronic illness with exacerbation/progression/or side effects of treatment (Moderate) Risk of complications and/or morbidity/mortality of management: Major elective surgery with patient/procedure risk factor(s): previous surgery, obesity, cardiac hx (High) Mason Cline MDUnAdena Fayette Medical Center09-29-2025 NoteSubjective Patient ID: Abraham Harry is a 64 y.o. adult who presents for Consult (Abraham is here today for consult: Incisional hernia - umbilical hernia). HPI Review of Systems Constitutional: Negative. HENT: Negative. Respiratory: Negative. Cardiovascular: Negative. Gastrointestinal: Positive for abdominal pain and constipation. Genitourinary: Negative. Neurological: Negative. Hematological: Negative. Objective Visit Vitals BP (!) 163/98 (BP Location: Left arm, Patient Position: Sitting) Pulse 88 Temp 36.8 ???C (98.3 ???F) (Oral) Physical Exam Assessment/Plan No diagnosis found. No orders of the defined types were placed in this encounter. No results found for this or any previous visit (from the past 36 hours). No follow-ups on file.[facility]09-18[facility] History of Present illness Narrative* Rey Leiva, DO - 01/17/2025 1:30 PM EDT Chief Complaint Patient presents with Annual Exam 1 year follow up for ASHD (arteriosclerotic heart disease) Pre-op Clearance Hernia repair Subjective Abraham Harry is a 64 y.o. male 64-year-old gentleman returns for annual cardiovascular visit, as well as preoperative risk assessment and clearance prior to abdominal hernia redo surgery. He is doing well. He has no further episodes of orthostasis, denies angina, heart failure hospitalizations, neurologic or thromboembolic or bleeding or cardiovascular events. He has a history of hypertension, remote stroke remains on clopidogrel for this; mild obesity, mildASHD diagnosed by heart cath in 2015. Routine treadmill stress testing in 2022 was normal He has had no previous coronary revascularization or myocardial infarction or heart failure events Today's ECG is normal sinus rhythm, Q-wave inferior infarction pattern on ECG age undetermined. Recommendations: Patient is clear for his intended low risk redo abdominal hernia surgery; he himself is at low risk for any major adverse cardiac events no further imaging is warranted; he can follow-up in 1 year with nurse practitioner or as needed Review of Systems All other systems reviewed and are negative. Vitals: 01/17/25 1333 BP: 142/82 BP Location: Left arm Patient Position: Sitting Pulse: 85 Weight: 119 kg (263 lb) Height: 1.803 m (5' 11 ) EKG done in office today Objective Physical Exam Constitutional: Appearance: Normal appearance. [...] no known allergies. Current Medications Current Outpatient Medications Medication Instructions albuterol (ProAir HFA) 90 mcg/actuation inhaler Inhale. As needed albuterol 2.5 mg /3 mL (0.083 %) nebulizer solution Every 6 hours PRN atorvastatin (LIPITOR) 80 mg, oral, Daily benralizumab (FASENRA SUBQ) 1 Dose, Every 30 days busPIRone (Buspar) 15 mg tablet 1 tablet, 3 times daily cholecalciferol (Vitamin D-3) 125 MCG (5000 UT) capsule 1 capsule, Daily clopidogrel (PLAVIX) 75 mg, oral, Daily fluticasone propion-salmeteroL (Advair Diskus) 500-50 mcg/dose diskus inhaler 1 puff, 2 times dailyRT losartan (Cozaar) 100 mg tablet 1 tablet, Daily (0630) metoprolol succinate XL (TOPROL-XL) 50 mg, 2 times daily nitroglycerin (NITROSTAT) 0.4 mg, Every 5 min PRN Assessment/Plan 1. Encounter for pre-operative cardiovascular clearance 2. ASHD (arteriosclerotic heart disease) Follow Up In Cardiology 3. Hyperlipidemia, unspecified hyperlipidemia type 4. Essential hypertension 5. Asthma, unspecified asthma severity, unspecified whether complicated, unspecified whether persistent ([facility]) 6. Chronic obstructive pulmonary disease, unspecified COPD type (Multi) 7. Former smoker 8. BMI 36.0-36.9,adult Scribe Attestation By signing my name below, I, Winifred Rob RN , Scribe attest that this documentation has been prepared under the direction and in the presence of Kitty Leiva DO. Provider Attestation - Scribe documentation All medical record entries made by the Scribe were at my direction and personally dictated by me. Ihave reviewed the chart and agree that the record accurately reflects my personal performance of the history, physical exam, discussion and plan. documented in this encounterMcKitrick Hospital Work Phone: 1(580) 438-823709-18-2025 Instructions* Patient Instructions* Winifred Groves RN - 01/17/2025 1:30 PM EDT Please bring all medicines, vitamins, [...] since last visit (-) denotes wt loss -5 lbs Weight loss needed to achieve BMI 25: 84.1 Lbs Weight loss needed to achieve BMI 30: 48.4 Lbs Provided instructions on dietary changes Provided instructions on exercise. Will need to hold plavix documented in this encounterMcKitrick Hospital Work Phone: 1(880) 376-238709-10-2025 NoteGeneral Surgery Office/Clinic Note Chief Complaint consultation for hernia HPI Staff 64 year old male presents on consultation from Dr. Hoy for supraumbilical hernia. Patient with history of [...] incision hernia repaired 08/2023, robotic-assisted IPOM with 9x 7 cm Symbotex mesh insertion; noticed bulge [...] obtain abd/pelvic ct scan with contrast at [facility] for further evaluation of pain, possible recurrent hernia; will call patient with results; he is to call sooner if problems/questions. Ordered: Creatinine CT Abdomen/Pelvis w/ Contrast E&M of Est. Patient Moderate 30-39 Min 90859 2. History of incisional hernia repair (Z98.890: Other specified postprocedural states) see # 1 Ordered: Creatinine CT Abdomen/Pelvis w/ Contrast E&M of Est. Patient Moderate 30-39 Min 23839 3. Diastasis recti (M62.08: Separation of muscle (nontraumatic), other site) see # 1 Ordered: Creatinine CT Abdomen/Pelvis w/ Contrast E&M of Est. Patient Moderate 30-39 Min 68703 Personal history of other diseases of the [...] Laparoscopic cholecystectomy (01/10/2023), Colono (more content not included)...[facility] Comment on above:Result Comment: Electronically Signed By: LIN FENTON, Marbin Chaudhari\Date and Time Signed: 01/09/25 14:18 [id number] Evaluation + Plan note Diagnostic Tests Pending * Creatinine 01/09/25 [facility] [place] 12-15-2024 NoteEntered by NIRAV CAIN DO on April 15, 2024 20:01:50 EST From: NIRAV CAIN DO To: [facility] #[id number] Sent: 04/15/2024 20:01:50 EST Subject: Medication Management [...] 2 Substitutions Allowed Route To Pharmacy - [facility] #[id number] Note from Pharmacy: ZERO refills remain on this prescription. Your patient is requesting advance approval of refills for this medication to PREVENT ANY MISSED DOSES From: [facility] #[id number] To: NIRAV CAIN DO Sent: April 14, 2024 7:06:00 AM IT ADMIN Subject: Medication Management Due: April 15, 2024 12:18:58 AM IT ADMIN On Hold Pending Signature Dispensed Drug: busPIRone (busPIRone 15 mg oral tablet), TAKE 1 TABLET BY MOUTH THREE TIMES DAILY Quantity: 90 tab(s) Days Supply: 30 Refills: 0 Substitutions Allowed Notes from Pharmacy: ZERO refills remain on this prescription. Your patient is requesting advance approval of refills for this medication to PREVENT ANY MISSED DOSES [facility] [id number] History of Present illness Narrative* Nicanor Calvo, CHECK VIEWER-CAR SANDER - 04/13/2024 10:00 AM EST Subjective: Abraham Harry is a 63 y.o. male with hypertension. Patient presents to the office ambulatory with steady gait, is accompanied by his . Last evaluated in clinic Dr. Leiva January 2024. At that time he had symptomatic orthostatic hypotension and spironolactone was discontinued. Patient reports in office spironolactone symptoms have completelyabated. Her children were told him he could utilize spironolactone as needed for lower extremity edema, he has not needed. He continues to follow his blood pressure at home and it is optimal. He has an arm cuff that he hasobtained from the [place] clinic. Systolic blood pressure ranges in the [...] mcg/dose diskus inhaler Inhale 1 puff 2 timesa day. Rinse mouth with water after use [...] (0.4 mg) under the tongue every 5 minutesif needed for chest pain. revefenacin (Yupelri) 175 [...] making process incorporating patients unique circumstances, the followingtreatment plan will be initiated: 1. Prescription drug management of cardiovascular medication for efficacy, adherence to treatment, side effect assessment and polypharmacy. Current treatment clinically warranted and to continue without modifications. 2. Return for follow-up; in the interim, contact the office if new symptoms arise. Dr. Leiva as scheduled Nicanor Calvo MSN, CHECK VIEWER-CAR SANDER, PMHNP-BC [facility] [place], [place] Please excuse any errors in grammar or translation related to this dictation. Voice recognition software was utilized to prepare this document. documented in this encounterMcKitrick Hospital Work Phone: 1(684) 230-269812-13-2024 Instructions* Patient Instructions* YOSSI Brewer - 04/13/2024 10:00 AM EST [...] making process incorporating patients unique circumstances, the followingtreatment plan will be initiated: 1. Prescription drug management of cardiovascular medication for efficacy, adherence to treatment, side effect assessment and polypharmacy. Current treatment clinically warranted and to continue without modifications. 2. Return for follow-up; in the interim, contact the office if new symptoms arise. Dr. Leiva as scheduled documented in this encounterMcKitrick Hospital Work Phone: 1(563) 690-625310-04-2024 NoteEntered by NIRAV CAIN DO on February 03, 2024 12:40:56 EDT From: NIRAV CAIN DO To: [facility] #[id number] Sent: 02/03/2024 12:40:56 EDT Subject: Medication Management Submitted: Complete:busPIRone (busPIRone 10 mg oral tablet) Signed by NIRAV CAIN DO 02/03/2024 12:40:00 EDT Approved with modifications: busPIRone (BUSPIRONE 10MG TABLETS) TAKE 1 TABLET BY MOUTH TWICE DAILY Qty: 60 tab(s) Days Supply: 30 Refills: 2 Substitutions Allowed Route To Pharmacy - [facility] #[id number] From: [facility] #[id number] To: NIRAV CAIN DO Sent: February 03, 2024 10:40:51 AM CDT Subject: Medication Management Due: February 04, 2024 12:01:54 AM CDT On Hold Pending Signature Dispensed Drug: busPIRone (busPIRone 10 mg oral tablet), TAKE 1 TABLET BY MOUTH TWICE DAILY Quantity: 60 tab(s) Days Supply: 30 Refills: 0 Substitutions Allowed Notes from [facility] [id number] History of Present illness Narrative* Rey Leiva, - 01/17/2024 2:30 PM EDT Subjective Abraham Harry is a 63 y.o. male 63-year-old gentleman returns for follow-up he is doing well other than chronic complaints of orthostatic dizziness and lightheadedness, confirmed on today's examination with 10 mmHg systolic drop inblood pressure, and persistent sinus tachycardia between 90 and 100 beats a minute. He denies any chest heaviness, pressure discomfort, denies any recurrent thromboembolic or bleedingor strokelike events. He has been treated for stroke, he has known ASHD from heart catheterization at [facility] many years ago with Dr. Martinez, [...] 1 tablet (50 mg) by mouth once daily.,Disp: , Rfl: nitroglycerin (Nitrostat) 0.4 mg SL [...] Attestation By signing my name below, I, Ondina Bronson LPN attest that this documentation has been prepared under the direction and in the presence of Kitty Leiva DO. Provider Attestation - Scribe documentation All medical record entries made by the Scribe were at my direction and personally dictated by me. Ihave reviewed the chart and agree that the record accurately reflects my personal performance of the history, physical exam, discussion and plan. documented in this [facility] Work Phone: 1(597) 204-782509-17-2024 Instructions* Patient Instructions* Sera Chiu LPN - 01/17/2024 2:30 PM [...] to Increase physical activity. documented in this encounterMcKitrick Hospital Work Phone: 1(881) 181-582808-26-2024 Evaluation note* Author Saleem Garcia [facility] HospitalAuthoredPringle 2023 2:54pmTime spent on patient 30+ minutes, spent time on phone with patient in the office trying to reach claims department @ [facility] Work Phone: 1(997) 129-161908-08-2024 History and physical note Author Harriet Galicia [facility] December 08, 2023 7:59amNote Date/TimeAugust 2023 7:59am[place] [address] Gastroenterology H&P Signed Patient: Abraham Harry MR#: [id number] : 1960 Acct:[id number] Age/Sex: 63 / M Adm Date: 4 Loc: Room: Type: [facility] Attending Dr: Harriet Galicia DO Copies to: Harriet Galicia, [facility], [facility] Date of Service: 12/08/2023 HISTORY & PHYSICAL: Patient's history with special attention to the cardiovascular, pulmonary systems and the current problem was reviewed with the patient immediately prior to the procedure. Present medications and doses reviewed in the EMR. Allergies and pertinent laboratory tests were also re viewedat this time in the EMR. The physical [...] <Electronically signed by Harriet Galicia DO> 12/08/23758 [facility] Work Phone: 1(716) 121-289708-08-2024 [facility] Evaluation + Plan note Diagnostic Tests Pending * Creatinine 07/12/23 General Surgery [facility] 11-21-2023 Evaluation note* Encounter Date Diagnosis Assessment Notes Treatment Notes Treatment Clinical Notes Mar, Asthma with COPD (ICD-10 - J44.9 ) please arrange for dupixent if qualified [employer] [facility] Other 11-21-2023 Evaluation note* Encounter Date Diagnosis Assessment Notes Treatment Notes Treatment Clinical Notes Mar, Asthma with COPD (ICD-10 - J44.9 ) please arrange for dupixent if qualified Mar,Severe persistent asthma without complication (ICD-10 - J45.50) [employer] [facility] Other 09-27-2023 History of Present illness Narrative* Jennifer Melgar - 01/26/2023 5:38 PM EDT CLINICAL PHARMACY NOTE: MEDS TO BEDS Total # of Prescriptions Filled: 1 The following medications were delivered to the patient: cephalexin Additional Documentation: Pt signed form- filed sheet * Sariah Nichols MD - 01/26/2023 12:10 PM EDT Images from the original note were not included. [facility] Office: [phone] Rajat Worley DO, Nirav Leiva DO, Siva [...] MD,Cass Granado CNP, Billie Hilliard CNP,, Abraham Foote, BURAK, Radha Arredondo, SRINI, Keke Spencer CNP, Ni Kowalski CAR SANDER, Jeana Carrizales CNP, Milly Harrell CNP, Arleen Panchal CAR SANDER, Elvira Godwin, CAR SANDER, Edelmira Catalan, SPARKER AND PATCHER, Maribeth Oswald CNP, Lisa Pacheco, CAR SANDER [facility] IN-PATIENT SERVICE [facility] Progress Note 01/26/2023 1:43 PM Name: Abraham Harry Acct: [id number] Room: 0345/0345-02 Day: 1 Admit Date: 01/25/2023 [...] hypertension, hypercholesterolemia, questionable CAD (patient follows with telephonic nurse case manager because of sudden cardiac of his father at the age of 44 due to cardiac aneurysm and he said that telephonic nurse case manager mentioned to him that he has some changes at the bottom of his heart that need to be monitored ), stroke 2020 on clopidogrel not on aspirin, cholecystectomy and bowel resection for acute necrosis done by Dr. Ceballos on 01/10. Patient presented to [facility] ED for acute onset abdominal pain that [...] didshow nephrolithiasis. Discussed with GI team at [facility], transferring patient for possible CBD stone and [...] , PHART , PH , POCPCO2 , QHO6QRG , PCO2 , POCPO2 , PO2ART , PO2 , POCHCO3 , VIX0RCT , HCO3 , NBEA , PBEA , BEART , BE , THGBART , THB , QQJ7RVU , VQTC6AFS , E0PYXTJN , O2SAT , FIO2 Lab Results Component [...] of bowel resection 01/25/2023 Yes Plan: Abdominal qwxo-prrezpdm-xxpjustxb concern for nephrolithiasis -patient thinks that he [...] 01/26/2023 1:43 PM [address] [facility] Hospital Discharge instructions* Discharge Instructions* Sariah Nichols MD - 01/26/2023 1:41 PM EDT Do not take atorvastatin/Lipitor for 1 week. Follow-up with PCP Check BP before taking meds documented in this encounterBON ST. RITA'[facility]07-07-2022 Evaluation note* Encounter Date Diagnosis Assessment Notes Treatment Notes Treatment Clinical Notes Oct, Asthma with COPD (ICD-10 - J44.9 ) [employer] [facility] Other 03-30-2022 Evaluation note* Encounter Date Diagnosis Assessment Notes Treatment Notes Treatment Clinical Notes Jun, Asthma with COPD (ICD-10 - J44.9 ) Jun,oronary artery disease involving [place] heart, unspecified vessel or lesion type, unspecified whether angina present (ICD-10 - I25.10) Jun,rthostatic lightheadedness (ICD-10 - R42) [employer] [facility] Other 07-01-2017 History general Narrative - Reported* Type Description Date Medical History COPD Medical Historyheart diseaseMedical Historycongestive heart failureMedical HistoryasthmaSurgical Historyrotator cuff tear repair10/2016Surgical HistoryFoot Ehqzfxo4352Ylyrlbln Historyhernia xisbjk7383Qthbjcphqzofxzf HistorySee Above [employer] [facility] Other 10-26-2016 History of Present illness Narrative* Patient returns in follow-up of problems as noted. In the interim he has begun to develop anginal chest pain. He describes retrosternal pain brought about by aerobic activity and relieved with rest. Review of chart demonstrates that he had a coronary angiogram 7 years ago in [facility] where he had moderate disease treated [...] proceed with stress testing and follow-up thereafter. [facility] Work Phone: Consult note* Clinical Note Date No Information [facility] Work Phone: Discharge summary* Clinical Note Date No Information [facility] Work Phone: Evaluation + Plan note No data available for this section General Surgery [place] Evaluation + Plan note Future Appointments Appointment Date:10/05/2023 04:00:00 PM Scheduled Provider:Marbin CEBALLOS [facility]:GS Post Op 15 [facility] Surgery Shahnaz Evaluation + Plan note Future Appointments Appointment Date:01/09/2025 01:40:00 PM Scheduled Provider:Marbin CEBALLOS MD Location:[facility] Appointment Type:GS Established [facility] General Surgery Shahnaz Evaluation noteNo InformationNort Printed Piece Other Evalucdnig noteNo assessment information available [facility] Work Phone: evaluation note* Diagnosis Abdominal [...] of biliary tract [facility] Diagnosis Onset Date Resolution Status Asthma, severe persistent acute [facility] Work Phone: Evaluation note* Diagnosis Essential hypertension Unspecified essential hypertension documented in this encounter [facility] Work Phone: Evaluation note* Diagnosis ASHD (arteriosclerotic heart disease) Coronary atherosclerosis of unspecified type of vessel, [place] ore[place] or graft Chronic obstructive pulmonary disease, unspecified COPD type (Multi) Essential hypertension Unspecified essential hypertension Hyperlipidemia, unspecified hyperlipidemia type Cerebrovascular accident (CVA), unspecified mechanism (Multi) BMI 37.0-37.9, adult Former smoker Personal history of tobacco use, presenting hazards to health documented in this encounter [facility] Work Phone: Evaluation note* Diagnosis Onset Date Resolution Status Admit Date History of tobacco abuse acuteFebruary 2024 2:30pmLong term (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 inhaled steroidsacute June 25, 2024 2:30pmPeripheral eosinophiliaacuteFebruary 2024 2:30pm Severe persistent asthma, uncomplicatedacuteFebruary 2024 2:30pm [facility] Work Phone: Evaluation note* Diagnosis Encounter for pre-operative cardiovascular clearance ASHD (arteriosclerotic heart disease) Coronary atherosclerosis of unspecified type of vessel, [place] or graft Hyperlipidemia, unspecified hyperlipidemia type Essential hypertension Unspecified essential hypertension Asthma, unspecified asthma severity, unspecified whether complicated, unspecified whether persistent ([facility]) Chronic obstructive pulmonary disease, unspecified COPD type (Multi) Former smoker Personal history of tobacco use, presenting hazards to health BMI 36.0-36.9,adult documented in this encounter [facility] Work Phone: Evaluation note* Type Assessment Date No Information [facility] Work Phone: History and physical note* Clinical Note Date No Information [facility] Work Phone: History of Past illness Narrative* Condition Effective Dates (start - stop) O utcome No Information [facility] Work Phone: History of Present illness [...] diet lifestyle modification exercise and weight loss. [facility]: History of Present illness Narrative* [...] before without change and follow-up next year. [facility] Work [facility]: Hospital Discharge instructions No data available for this section General Surgery [place] Instructions* Date Instruction Additional Infor mation No Information [facility] Work Phone: Progress note No data available for this section General Surgery [place] Progress note* Clinical Note Date No Information [facility] Work Phone: Reason for referral (narrative)* Consultation (Routine) - AuthorizedSpecialtyDiagnoses / ProceduresReferred By Contact Referred To ContactCardiology Diagnoses Essential hypertension Procedures Follow Up In Cardiology Rey Leiva, [address] [facility], [address] [address] Nicanor Calvo, CHECK VIEWER-CAR SANDER [address] [facility], [address] [address] Referral IDStatusReasonStart DateExpiration DateVisits RequestedVisits [id number]/[id number]/ * Consultation (Routine) - AuthorizedSpecialtyDiagnoses / ProceduresReferred By ContactReferred To ContactCardiology Diagnoses ASHD (arteriosclerotic heart disease) Procedures Follow Up In Cardiology Cali Rey Carlos, [address] [facility], [address] [place] [id number] Rey Leiva, DO [address] [facility], [address] [place] [address] Referral IDStatusReasonStart DateExpiration DateVisits RequestedVisits [id number] [facility] Work Phone: Reason for referral (narrative)* Reason For Referral No Information [facility] Work Phone: Review of systems Narrative - Reported* System Pos/Neg Findings No Information [facility] Work Phone: Summary Purpose Family History No Family History Records FoundUnknown Family Member Name Dates Details Family history of myocardial infarction: Father(V17.3, Z82.49) Status:ActiveFamily history of cardiovascular disease: Father(V17.49, Z82.49) Status:ActiveFamily history of aortic aneurysm: Father(V17.49, Z82.49) Status:ActiveFamily history of diabetes mellitus: Brother(V18.0, Z83.3) Status:ActiveHeart problem: Brother Status:Active Unknown Family Member Name Dates Details Heart problem: Brother Status:ActiveFamily history of diabetes mellitus: Brother(V18.0, Z83.3) Status:ActiveFamily history of aortic aneurysm: Father(V17.49, Z82.49) Status:ActiveFamily history of cardiovascular disease: Father(V17.49, Z82.49) Status:ActiveFamily history of myocardial infarction: Father(V17.3, Z82.49) Status:Active Unknown Family Member Name Dates Details Heart problem: Brother Status:ActiveFamily history of diabetes mellitus: Brother(V18.0, Z83.3) Status:ActiveFamily history of aortic aneurysm: Father(V17.49, Z82.49) Status:ActiveFamily history of cardiovascular disease: Father(V17.49, Z82.49) Status:ActiveFamily history of myocardial infarction: Father(V17.3, Z82.49) Status:Active Relationship Condition Age at Onset Recorded Date/T soco Not Specified Heart disease Unknown Unknown Family Member Name Dates Details Heart problem: Brother Status:ActiveFamily history of diabetes mellitus: Brother(V18.0, Z83.3) Status:ActiveFamily history of aortic aneurysm: Father(V17.49, Z82.49) Status:ActiveFamily history of cardiovascular disease: Father(V17.49, Z82.49) Status:ActiveFamily history of myocardial infarction: Father(V17.3, Z82.49) Status:Active Unknown Family Member Name Dates Details Heart problem: Brother Status:ActiveFamily history of diabetes mellitus: Brother(V18.0, Z83.3) Status:ActiveFamily history of aortic aneurysm: Father(V17.49, Z82.49) Status:ActiveFamily history of cardiovascular disease: Father(V17.49, Z82.49) Status:ActiveFamily history of myocardial infarction: Father(V17.3, Z82.49) Status:Active Relationship Condition Age at Onset Recorded Date/T soco brother Hypertension Unknown Heart diseaseUnknownDiabetes mellitusUnknownfatherDeceasedUnknownHypertension UnknowngrandparentHeart diseaseUnknownNot SpecifiedHypertensionUnknown Relationship Condition Age at Onset Recorded Date/T soco brother Hypertension Unknown Heart diseaseUnknownDiabetes mellitusUnknownfatherDeceasedUnknownHypertension UnknowngrandparentHeart diseaseUnknownmotherHypertensionUnknown Family Member Type Diagnosis Age At Onset No Information Advance Directives No Advanced Directives Records Found Advance Directive Response Recorded Date/ Time Advance Directives No August 31, 2019 4:13pm Code StatusDate ActivatedDate InactivatedCommentsFull Code01/25/2023 6:37 PMCode StatusDate ActivatedDate InactivatedCommentsFull Code01/25/2023 6:37 PM01/25/2023 6:37 PM Advance Directive Response Recorded Date/ Time Advance Directives No August 31, 2019 3:13pm Advance Directive Response Recorded Date/ Time Advance Directives No December 26, 2023 2:30pm Advance Directive Response Recorded Date/ Time Advance Directives No December 26, 2023 1:30pm Directive Yes / No Effective Date File Name No Information Chief Complaint ABRAHAM HARRY is being seen for a 6 month follow-up of.ABRAHAM JACOBSING is being seen for a 9 month follow-up of.ABRAHAM PIERO is being seen for a 9 month follow-up of.ABRAHAM PIERO is being seen for a 6 month follow-up of. 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 Peripheral eosinophilia Severe persistent asthma, uncomplicated Chief Complaint Admit Date 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 Asthma June 25, 2024 2:30pm Reason for Visit Admit Date History of tobacco abuse June 25, 2024 2:30pm assisted (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 inhaled stero ids June [...] section and content) DATE CREATED AUTHOR 10/21/2017 [facility] DATE CREATED AUTHOR AUTHOR'S ORGANIZ ATION 04/08/2020 [facility] DATE CREATED AUTHOR AUTHOR'S ORGANIZ ATION 02/22/2022 [facility] DATE CREATED AUTHOR AUTHOR'S ORGANIZ ATION 01/08/2023 [facility] DATE CREATED AUTHOR AUTHOR'S ORGANIZ ATION 02/03/2023 [facility] DATE CREATED AUTHOR AUTHOR'S ORGANIZ ATION 02/03/2023 [facility] DATE CREATED AUTHOR AUTHOR'S ORGANIZ ATION 02/11/2023 [facility] DATE CREATED AUTHOR AUTHOR'S ORGANIZ ATION 01/19/2024 [facility] DATE CREATED AUTHOR AUTHOR'S ORGANIZ ATION 06/27/2024 [facility] DATE CREATED AUTHOR AUTHOR'S ORGANIZ ATION 01/11/2025 [facility] DATE CREATED AUTHOR AUTHOR'S ORGANIZ ATION 01/19/2025 [facility] DATE CREATED AUTHOR AUTHOR'S ORGANIZ ATION 02/07/2025 [facility] DATE CREATED AUTHOR AUTHOR'S ORGANIZ ATION 03/08/2025 [facility] REASON FOR VISIT (unrecogniz ed section and content) [id number] bp/orthosSpecialtyDiagnoses / ProceduresReferred By ContactReferred To ContactCardiology Diagnoses Essential hypertension Procedures Follow Up In Cardiology Rey Leiva, [address] [address] Phone: tel: fax: Nicanor Calvo, CHECK VIEWER-CAR SANDER [address] [facility], [address] [address] Phone: tel: fax: Referral IDStatusReasonStart DateExpiration DateVisits RequestedVisits [id number]/[id number] Exam1 year follow up for ASHD (arteriosclerotic heart disease)Pre-op ClearanceHernia repair SpecialtyDiagnoses / ProceduresReferred By ContactReferred To ContactCardiology Diagnoses ASHD (arteriosclerotic heart disease) Procedures Follow Up In Cardiology Rey Leiva, DO [address] [facility], [address] [place] [address] Phone: tel: fax: Rey Leiva, DO [address], [address] [place] [address] Phone: tel: fax: Referral IDStatusReasonStart DateExpiration DateVisits RequestedVisits [id number]/17/20249/ Care Teams (unrecognized sec tion and content) Team Status: Active Member Role Status Dates Nirav Cain DO Primary Care Provider Active Team Status: Inactive Member Role Status Dates Nirav Cain DO Primary Care Provider Active Kamterrance Taylor MDAttena ProviderActive Team Status: Inactive Member Role Status Dates Marbin Ceballos MD [facility] Attending Provider Active Start: September 14, 2023 End: September 14, 2023 Team Status: Inactive Member Role Status Dates Jacqueline Anthony APRN [facility] Attending Provider Active Start: September 19, 2023 End: September 18Phyllis Nelson Care ProviderActiveStart: September 19, 2023 End: September 18MEActiveStart: September 19, 2023 End: September 19, 2023 Team Status: Inactive Member Role Status Dates Nirav Cain DO Primary Care Provider Active Start: December 08, 2023 End: December 07alberto Galicia , DOAttending ProviderActiveStart: December 08, 2023 End: December 08, 2023 Team Status: Active Member Role Status Dates Nirav Cain DO Primary Care Provider Active Start: December 08, 2023 Harriet Galicia , DOAttending Provider, Other ProviderActiveStart: December 08, 2023 Team Status: Active Member Role Status Med Cain DO Primary Care Provider Active Start: December 14, 2023 Michelle Peguero CMAAttending ProviderActiveStart: December 14, 2023 Team Status: Inactive Member Role Status Med Cain DO Primary Care Provider Active Start: December 26, 2023 End: December 26, 2023Saleem Garcia , Attending ProviderActiveStart: December 26, 2023 End: December 26, 2023 Team Status: Inactive Member Role Status Med Cain DO Primary Care Provider Active Start: January 17, 2024 End: January 17, 2024Saleem Garcia , Attending ProviderActiveStart: January 17, 2024 End: January 17, 2024Team MemberRelationshipSpecialtyStart DateEnd Nirav Jauregui DO PCP - Nuvirnz88/15/22Team MemberRelationshipSpecialtyStart DateEnd Nirav Jauregui DO PCP - Haibumk69/15/22 Team Status: Active Member Role Status Med Phelps MD Primary Care Provider Active Team Status: Inactive Member Role Status Med Garcia DO Attending Provider Active St art: June 25, 2024 End: June 25, 2024DoGeovany Ambrosiomobile city hospitalyamel Care ProviderActiveStart: June 25, 2024 End: June 25, 2024Team MemberRelationshipSpecialtyStart DateEnd Date Beth Phelps MD [address] [place] [address] [facility] Name Effective Dates (start - stop) Status Members No Information Goals (unrecognized section and content) Goals may be documented in a n alternate section Ordered Prescriptions (unrec ognized section and content) PrescriptionSigDispensedRefillsStart DateEnd Date cephALEXin (KEFLEX) 500 MG capsule Take 1 capsule by mouth 3 times daily for 3 days 9 capsule // cephALEXin (KEFLEX) 500 MG capsule Take 1 capsule by mouth 3 times daily 15 capsule Scheduled Active and Recently Administ ered Medications (unrecognized section and content) Medication Order clopidogrel (PLAVIX) tablet 75 mg 75 mg, Oral, DAILY, First dose on Tue01/26/23 at 1400, Until Discontinued * 1550 (Not Given - Provider: Lisa Butler RN - Reason: Patient/family refused) enoxaparin (LOVENOX) injection 40 mg 40 mg, SubCUTAneous, DAILY, First dose on Tue01/25/23 at 1900, Until Discontinued, Indication of Use: Prophylaxis-DVT/PE, Administer by deep subCUTAneous injection with pt lying down. Alternate injection sites on abdominal wall. Do not rub site after injection. Check with provider prior to any invasive procedure. * 2058 (Not Given - Provider: Elvira Su RN - Reason: Medication not available) * 1017 (Not Given - Provider: Lisa Butler RN - Reason: Medication not available) famotidine (PEPCID) 20 mg in sodium chloride (PF) 0.9 % 10 mL injection 20 mg, IntraVENous, 2 TIMES DAILY, First dose on Tue01/25/23 at 2100, Until Discontinued, IV Push over minimum of 2 minutes - Dilute with 10 mL NS * 2100 (Not Given - Provider: Elvira Su RN - Reason: Patient/family refused) * 1017 (Not Given - Provider: Lisa Butler RN - Reason: Patient/family refused) * 2100 (Due) HYDROmorphone (DILAUDID) injection 0.25 mg (COMPLETED) 0.25 mg, IntraVENous, ONCE, 1 dose, On Tue01/26/23 at 0045, If oral and IV narcotics ordered, use oral first and only use IV if oral is ineffective or cannot take oral. Do Not give oral and IV within1 hour of each other unless specifically ordered. * 0030 (Given - Provider: Elvira Su RN) metoprolol succinate (TOPROL XL) extended release tablet 50 mg 50 mg, Oral, DAILY, First dose on Tue01/26/23 at 1400, Until Discontinued, Do not crush or chew. * 1550 (Not Given - Provider: Lisa Butler RN - Reason: Patient/family refused) piperacillin-tazobactam (ZOSYN) 3,375 mg in sodium chloride 0.9 % 50 mL IVPB (mini-bag) 3,375 mg, IntraVENous, EVERY 8 HOURS, First dose on Tue01/25/23 at 2130, Until Discontinued, Antimicrobial Indications: Intra-Abdominal Infection * 2206 (New Bag - Provider: Elvira Su RN) * 0207 (Stopped - Provider: Elvira Su RN) * 0556 (New Bag - Provider: Elvira Su RN) * 0956 (Stopped - Provider: Lisa Butler, LAITH) * 1547 (New Bag - Provider: Lisa Butler, RN) * 1947 (Due: Stopped - Provider: Lisa Butler, RN) * 2130 (Due) sodium chloride flush 0.9 % injection 5-40 mL 5-40 mL, IntraVENous, EVERY 12 HOURS SCHEDULED (2 times per day), First dose on Tue01/25/23 at 2100, Until Discontinued, For Line Patency: Peripheral IV = 5 mL; Midline or Central Line = 10 mL/lumen.If following IV push medication, administer flush at same rate as the IV push. Flush volume is determined by type of infusion therapy being given. For non-viscous solutions use: Peripheral IV = 5 mL Midline or Central Line = 10 mL/lumen For viscous solutions (i.e. blood components, parenteral nutrition, contrast media, or after obtaining blood sample) use: Peripheral IV = 10 mL Midline or CentralLine = 20 mL/lumen * 2100 (Given - Provider: Elvira Su RN) * 0946 (Not Given - Provider: Lisa Butler, LAITH - Reason: IV Fluid Infusing) * 2100 (Due) Medication Order// 0.9 % sodium chloride infusion IntraVENous, at 75 mL/hr, CONTINUOUS, Starting on Tue01/25/23 at 1900 * 205 (New Bag - Provider: Elvira Su RN) Medication Order// 0.9 % sodium chloride infusion IntraVENous, at [...] Tue01/25/23 at 1836, Until Tue01/26/23 at 0017, PainSevere (7-10), Maximum dose of acetaminophen is 4000 mg from all sources in 24 hours. * 2038 (Given - Provider: Elvira Su, LAITH) LORazepam (ATIVAN) injection 0.5 mg (COMPLETED) 0.5 mg, IntraVENous, ONCE PRN, 1 dose, Starting on Tue01/26/23 at 1012, Until Mayra 01/27/23 at 1012, Other, MRI, Immediately prior to intravenous use, lorazepam Injection must be diluted with an equal volume of compatible solution (NS or D5W). * 1155 (Given - Provider: Lisa Butler, LAITH) magnesium sulfate 1000 mg in dextrose 5% [...] hour of each other unless specifically ordered. * 1900 (Given - Provider: Ruby Harper, LAITH) * 2240 (Given - Provider: Elvira Su, LAITH) ondansetron (ZOFRAN) injection 4 mg(Linked Group 3) [...] Refer to IV replacement orders Recheck K levelin AM. Not for use in patients with CrCl less than 30 mL/min. potassium chloride 10 mEq/100 mL IVPB (Peripheral Line)(Linked Group 4) 10 mEq, IntraVENous, PRN, Starting on Tue01/25/23 at 1835, Until Discontinued, at 100 mL/hr, Potassium Replacement, K Lab Replacement Action 2.7-3.0 10 mEq IVPB x 6 doses (60 mEq Total) < 2.7 CALLPHYSICIAN and 10 mEq IVPB x 6 doses [...] Until Tue01/26/23 at 1340, Other, Nuclear Medicine * 1340 (Given - Provider: Dave Arora) Order Group 1: acetaminophen (TYLENOL) tablet 650 [...] Tue01/25/23 at 1836, Until Tue01/26/23 at 0017, PainModerate (4-6)
Maximum dose of acetaminophen is 4000 mg from all sources in 24 hours.
Or HYDROcodone-acetaminophen (NORCO) 5-325 MG per tablet 2 tablet (CANCELED)Jump to med 2 tablet, Oral, EVERY 4 HOURS PRN, Starting on Tue01/25/23 at 1836, Until Tue01/26/23 at 0017, PainSevere (7-10)
Maximum dose of acetaminophen is 4000 [...] unable to tolerate oral tablet. K Lab & amp;nbsp; Replacement Action 3.1 to 3.5 &am p;nbsp; 40 mEq ORAL x 1 Under 3.1 &nbs p; Refer to IV replacement protocol Recheck K [...] BE BASED ON THE PRIMARY CLINICAL RECORDS. [employer] provides no warranty or guarantee of the accuracy or completeness of information in this document.
--- NOTE | 2025-04-09 14:15 | MR_ITS ---
[place] [id number] Patient Name: ALMA HARRY MRN: [id number] date: 1960 Sex: M Assigned Patient Location: MRI Current Patient Location: MRI Accession/Order Number: [id number] Exam Date: 04/09/2025 14:30 Report Date: 04/09/2025 16:38 At the request of: BETH PHELPS MD Procedure: MR head/brain wo con MR head/brain wo con 04/09/2025 3:34 PM SIGN AND SYMPTOMS: ^Migraine PROTOCOL: Multiplanar multisequence MR images of the brain without IV contrast COMPARISON: None. FINDINGS: Extra axial spaces: There is age-related cortical atrophy. Hemorrhage: None. Ventricular system: Within normal limits. Basal cisterns: Within normal limits and not effaced. Cerebral parenchyma: T2 and FLAIR hyperintense foci in the periventricular and subcortical white matter suggesting mild chronic microvascular ischemic change. Midline shift: None.. Cerebellum: Within normal limits. Brainstem: Within normal limits. OTHER: Calvarium: Normal marrow signal. Vascular system: Satisfactory flow voids within the anterior and posterior circulation. Visualized Paranasal sinuses: Within normal limits. Visualized Orbits: Within normal limits. Visualized upper cervical spine: Within normal limits. Sella and skull base: Within normal limits. MR/MR head/brain wo con IMPRESSION: No acute intracranial pathology. 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 Impression dictated by: Denton Mohan M.D. 04/09/2025 4:38 PM Dictation Location: Tap2printSAINT CABRINI HOSPITALMetaStat Electronically authenticated by: [id number] Y Date: 04/09/2025 16:38
== END 2025-04-09 14:05 | disposition home or self-care (01) ==
LOC: MRI 14:05
PROVIDERS: PCP Family Medicine; Visit Provider Family Medicine
DX: G43.909 Migraine, unspecified, not intractable, without status migrainosus (principal)
CPT/HCPCS: 70551